=== PATIENT | female | born 1950 | race Caucasian/White ===

== ENCOUNTER → 2016-08-03 | Outpatient (CLI) | payer MEDICARE, OTHER ==
[~2016-08-03] MED LIST: REGADENOSON 0.4 MG/5 ML SYRINGE IV ONE
--- NOTE | 2016-08-03 11:49 | NM ---
EXAMINATION TYPE: NM stress lexiscan cardiolite DATE OF EXAM: 08/03/2016 11:01 AM COMPARISON: NONE HISTORY: Preop TECHNIQUE: After the intravenous administration of 10.37 mCi Tc 99m Sestamibi - Cardiolite resting S PECT images acquired 47 minutes post injection. The patient received 0.4mg Lexiscan, 26.9 mCi Tc 99m Sestamibi - Stress images obtained [address] injection FINDINGS: Review of stress and rest SPECT images demonstrates no distinct perfusion abnormality. Gated analysi s shows normal wall motion with an estimated left ventricular ejection fraction of 78 %. Some mild decreased uptake along the anterior wall of the left ventricle is greater on rest images th an on stress images. IMPRESSION: No scintigraphic evidence for reversible ischemia. Additional findings above. Decreased uptake along the anterolateral wall is mild, greater on rest images than stress images. Elevated ejection fraction , consider echocardiographic correlation.
--- NOTE | 2016-08-03 13:25 | EST ---
DATE OF SERVICE: 08/03/16 AGE: 66Y SEX: F HT: 5'5" WT: 215 lbs. Protocol Timothy: Other: X Stage: Dur. of Exercise: *Heart Rate Blood Pressure *Rest: 93 Rest: 123/77 * *Max. Achieved: 102 Maximum BP: 123/77 85% PMHR: 129 100% PMHR: 152 *METS: INDICATIONS: MEDICATIONS: Baseline EKG revealed a sinus rhythm with nonspecific ST-T changes. There was some low voltage pattern noted with some baseline artifact. With Lexiscan administration, patient did not have any significant symptoms. Heart rate changed from about 84 beats per minute to 102 beats per minute. There was a lot of baseline artifact, but overall with Lexiscan administration, there were no EKG changes that were new and this is considered an inconclusive stress test. Heart rate changed from about 74 to 102 beats per minute and blood pressure changed from 115/84 to 108/56. IMPRESSION: 1. By EKG criteria, this is an inconclusive Lexiscan stress test because of minor resting EKG changes. 2. The nuclear scan results, which are more pertinent, will be reported by the radiologist.
== END | disposition home or self-care (01) ==
LOC: RADNMMAIN 08:06
PROVIDERS: ATTEND Internal Medicine
DX: Z01.810 Encounter for preprocedural cardiovascular examination (principal); R94.39 Abnormal result of other cardiovascular function study
CPT/HCPCS: 93017; 78452; A9500; J2785

== ENCOUNTER 2017-04-21 09:48 | Inpatient (IN) | payer MEDICARE, OTHER ==
[2017-04-21] MEDS ORDERED: ACETAMINOPHEN TAB 500 MG TAB PO STA (10:14)
[2017-04-21] MEDS ORDERED: VANCOMYCIN IV PER PHARMACY 1 EACH MISC MISCELLANE PRN (10:14)
[2017-04-21] MEDS ORDERED: LEVOFLOXACIN 750MG-D5W PMX 750 MG in DEXTROSE/WATER 1 150ML.BAG IVPB STA (10:14)
[2017-04-21] MEDS ORDERED: VANCOMYCIN 1,500 MG in SODIUM CHLORIDE 0.9% 250 ML IVPB STA (10:20)
[2017-04-21] MEDS: SODIUM CHLORIDE 0.9% 500 ML IV SCH ×2 (10:22→11:00)
[2017-04-21] MEDS ORDERED: SODIUM CHLORIDE 0.9% 1,000 ML IV STA ×2 (10:24)
--- NOTE | 2017-04-21 10:24 | ED ---
General Adult HPI - General Chief complaint: Fever Stated complaint: weakness Time Seen by Provider: 04/21/17 10:06 Source: patient, RN notes reviewed Mode of arrival: EMS Limitations: no limitations - History of Present Illness Initial comments: Patient is a pleasant 66-year-old female presenting to the emergency department complaining of not feeling well. Symptoms have progressed over the past couple of days. Patient did have some vomiting a couple of days ago. Patient has mild upper abdominal discomfort. Patient does have history of previous right leg flap surgery done around 8 weeks ago. Patient does have a draining tube removed a few days ago and still has some drainage. No cough. Patient has had decreased appetite and decreased oral intake. No constipation or diarrhea. - Related Data Home Medications Medication Instructions Recorded Confirmed HYDROcodone/APAP 10-325MG [[place] 1 tab PO Q6H PRN 12/04/15 04/21/17 10-325] Leflunomide [Arava] 20 mg PO DAILY 12/04/15 04/21/17 Levothyroxine Sodium [Synthroid] 200 mcg PO DAILY 12/04/15 04/21/17 Multivitamin/Iron/Folic Acid 1 tab PO DAILY 12/04/15 04/21/17 [Centrum Complete Multivit Tab] Pregabalin [Lyrica] 100 mg PO BID 12/04/15 04/21/17 Rivaroxaban [Xarelto] 15 mg PO DAILY 12/04/15 04/21/17 fentaNYL 25MCG/HR PATCH [Duragesic 50 mcg TRANSDERM Q72H 01/06/16 04/21/17 25Mcg/Hr Patch] Ferrous Sulfate [Feosol] 325 mg PO DAILY 02/04/16 04/21/17 Ascorbic Acid [Vitamin C] 500 mg PO DAILY 05/12/16 04/21/17 Ergocalciferol [Vitamin D2] 50,000 unit PO Q7D 04/21/17 04/21/17 Allergies Allergy/AdvReac Type Severity Reaction Status Date / Time Penicillins Allergy Rash/Hives Verified 04/21/17 11:00 Review of Systems ROS Statement: Those systems with pertinent positive or pertinent negative responses have been documented in the HPI. ROS Other: All systems not noted in ROS Statement are negative. Constitutional: Reports: fever Eyes: Denies: eye pain ENT: Denies: ear pain Respiratory: Denies: cough Cardiovascular: Denies: chest pain Endocrine: Reports: fatigue Gastrointestinal: Reports: abdominal pain, nausea, vomiting, constipation. Denies: diarrhea Genitourinary: Denies: dysuria Musculoskeletal: Denies: back pain Skin: Denies: rash Past Medical History Past Medical History: Deep Vein Thrombosis (DVT), Fibromyalgia, Rheumatoid Arthritis (RA), Skin Disorder, Thyroid Disorder Additional Past Medical History / Comment(s): OAB History of Any Multi-Drug Resistant Organisms: MRSA Date of last positivie culture/infection: 07/02/16 MDRO Source:: HAND Past Surgical History: Appendectomy, Cholecystectomy, Tonsillectomy Additional Past Surgical History / Comment(s): left foot wound debridement. nodule removed from thyroid. sinus surgery. surgical excision and debridment of sacrum with wound VAC placement on 08/05/[address] Perrin. debridement wound care to right lower extremity wound on 08/21/15. Past Anesthesia/Blood Transfusion Reactions: No Reported Reaction Past Psychological History: No Psychological Hx Reported Smoking Status: Never smoker Past Alcohol Use History: None Reported Past Drug Use History: None Reported - Past Family History Mother Family Medical History: AFIB, Cancer Additional Family Medical History / Comment(s): still living at age 91. skin cancer Father Family Medical History: Liver Disease, Rheumatoid Arthritis (RA) Additional Family Medical History / Comment(s): leukemia. at age 72 of liver problem. General Exam Limitations: no limitations General appearance: alert, in no apparent distress Head exam: Present: atraumatic Eye exam: Present: normal appearance, PERRL ENT exam: Present: mucous membranes dry Neck exam: Present: normal inspection Respiratory exam: Present: normal lung sounds bilaterally Cardiovascular Exam: Present: tachycardia GI/Abdominal exam: Present: soft, tenderness (Mild epigastric tenderness). Absent: distended, guarding, rebound, rigid Extremities exam: Present: other (Right posterior leg flap clean and dry and intact and healing well except for the lower portion with less than 1 cm open area with mild purulent discharge.) Neurological exam: Present: alert Psychiatric exam: Present: normal affect, normal mood Skin exam: Present: other (Healed incision except for lower opening with drainage.) Course Vital Signs 04/21/17 04/21/17 04/21/17 09:53 10:30 10:45 Temperature 101.2 F H 100.6 F H Pulse Rate 114 H 112 H 116 H Respiratory 16 16 16 Rate Blood Pressure 66/43 76/46 65/41 O2 Sat by Pulse 92 L 92 L 92 L Oximetry 04/21/17 04/21/17 04/21/17 11:00 11:30 12:00 Temperature 99.8 F H 97.9 F Pulse Rate 112 H 116 H 84 Respiratory 16 16 20 Rate Blood Pressure 81/49 72/45 80/46 O2 Sat by Pulse 92 L 92 L 94 L Oximetry 04/21/17 04/21/17 04/21/17 12:30 12:45 13:00 Temperature 97.9 F Pulse Rate 79 66 70 Respiratory 16 16 16 Rate Blood Pressure 71/41 76/47 80/49 O2 Sat by Pulse 95 95 97 Oximetry - Reevaluation(s) Reevaluation #1: 04/21/17 10:23 Presumptive infection lower part of wound with abnormal vital signs and fever. Patient is meeting severe sepsis criteria at 10:23 AM. IV fluid bolus has been ordered. Blood cultures and lactic acid and antibiotics have been ordered. 04/21/17 13:44 Case was discussed with Dr. Wilkins, who will admit for Dr. Randall. Case was also discussed with Dr. Metz, who will consult. Central line has been placed. Levophed has been started. EKG Findings - EKG Comments: EKG Findings:: Sinus tachycardia 118. WA 158. QRS 82. QT 298. QTC 417. Left axis. Normal QRS. No acute ST change. Procedures - Central Line Placement Right SC Consent Obtained: verbal consent, emergent situation Time Out Performed: Yes Patient Placed on Monitor/Pulse Ox: Yes MD Prep: mask, gown, gloves Central Line Prep: Chlorhexidine scrub Local Anesthesia Used: Lidocaine 1% Amount of Anesthesia Used (mls): 2 Central Line Lumen Inserted: triple Central Line Position: good blood return, all ports aspirated, flushed, capped, sutured in place with 3-0 nylon Dressing Applied: Tegaderm Post Procedure X-Ray: tip of catheter in good position Patient Tolerated Procedure: well Complications: none - Sepsis Sepsis Focused Exam #1 Time Sepsis Criteria Met: 10:23 Sepsis Focused Exam Date: 04/21/17 Sepsis Focused Exam Time: 13:36 Sepsis Focused Exam Complete: Yes Vital Signs & RN Notes Reviewed: Yes Capillary Refill: < 2 Seconds: Fingers, Toes Peripheral Pulses: Normal: Radial (R), Radial (L), Dorsalis Pedis (R), Dorsalis Pedis (L) Skin Color: Pallor Respiratory Exam: normal lung sounds Cardiovascular Exam: tachycardia Medical Decision Making - Lab Data Result diagrams: 04/21/17 10:11 04/21/17 10:11 Lab Results 04/21/17 04/21/17 04/21/17 Range/Units 10:11 10:11 10:11 WBC 28.3 H* (3.8-10.6) k/uL RBC 4.41 (3.80-5.40) m/uL Hgb 12.2 (11.4-16.0) gm/dL Hct 39.4 (34.0-46.0) % MCV 89.5 (80.0-100.0) fL MCH 27.7 (25.0-35.0) pg MCHC 31.0 (31.0-37.0) g/dL RDW 15.8 H (11.5-15.5) % Plt Count 278 (150-450) k/uL Neutrophils % 93 % Lymphocytes % 3 % Monocytes % 3 % Eosinophils % 0 % Basophils % 1 % Neutrophils # 26.3 H (1.3-7.7) k/uL Lymphocytes # 0.8 L (1.0-4.8) k/uL Monocytes # 0.9 (0-1.0) k/uL Eosinophils # 0.1 (0-0.7) k/uL Basophils # 0.2 (0-0.2) k/uL Manual Slide Review Performed Toxic Granulation Present Hypochromasia Slight Poikilocytosis (manual Present PT (9.0-12.0) sec INR (<1.2) APTT (22.0-30.0) sec Sodium 139 (137-145) mmol/L Potassium 4.2 (3.5-5.1) mmol/L Chloride 105 (98-107) mmol/L Carbon Dioxide 23 (22-30) mmol/L Anion Gap 11 mmol/L BUN 34 H (7-17) mg/dL Creatinine 1.90 H (0.52-1.04) mg/dL Est GFR (MDRD) Af Amer 32 (>60 ml/min/1.73 sqM) Est GFR (MDRD) Non-Af 26 (>60 ml/min/1.73 sqM) Glucose 87 (74-99) mg/dL Plasma Lactic Acid Darryl 2.9 H* (0.7-2.0) mmol/L Calcium 9.2 (8.4-10.2) mg/dL Total Bilirubin 0.8 (0.2-1.3) mg/dL AST 62 H (14-36) U/L ALT 45 (9-52) U/L Alkaline Phosphatase 138 H (38-126) U/L Total Protein 5.7 L (6.3-8.2) g/dL Albumin 2.7 L (3.5-5.0) g/dL Urine Color Urine Appearance (Clear) Urine pH (5.0-8.0) Ur Specific [place] (1.001-1.035) Urine Protein (Negative) Urine Glucose (UA) (Negative) Urine Ketones (Negative) Urine Blood (Negative) Urine Nitrite (Negative) Urine Bilirubin (Negative) Urine Urobilinogen (<2.0) mg/dL Ur Leukocyte Esterase (Negative) Urine RBC (0-5) /hpf Urine WBC (0-5) /hpf Urine WBC Clumps (None) /hpf Urine Bacteria (None) /hpf 04/21/17 04/21/17 Range/Units 10:11 11:23 WBC (3.8-10.6) k/uL RBC (3.80-5.40) m/uL Hgb (11.4-16.0) gm/dL Hct (34.0-46.0) % MCV (80.0-100.0) fL MCH (25.0-35.0) pg MCHC (31.0-37.0) g/dL RDW (11.5-15.5) % Plt Count (150-450) k/uL Neutrophils % % Lymphocytes % % Monocytes % % Eosinophils % % Basophils % % Neutrophils # (1.3-7.7) k/uL Lymphocytes # (1.0-4.8) k/uL Monocytes # (0-1.0) k/uL Eosinophils # (0-0.7) k/uL Basophils # (0-0.2) k/uL Manual Slide Review Toxic Granulation Hypochromasia Poikilocytosis (manual PT 13.5 H (9.0-12.0) sec INR 1.4 H (<1.2) APTT 30.6 H (22.0-30.0) sec Sodium (137-145) mmol/L Potassium (3.5-5.1) mmol/L Chloride (98-107) mmol/L Carbon Dioxide (22-30) mmol/L Anion Gap mmol/L BUN (7-17) mg/dL Creatinine (0.52-1.04) mg/dL Est GFR (MDRD) Af Amer (>60 ml/min/1.73 sqM) Est GFR (MDRD) Non-Af (>60 ml/min/1.73 sqM) Glucose (74-99) mg/dL Plasma Lactic Acid Darryl (0.7-2.0) mmol/L Calcium (8.4-10.2) mg/dL Total Bilirubin (0.2-1.3) mg/dL AST (14-36) U/L ALT (9-52) U/L Alkaline Phosphatase (38-126) U/L Total Protein (6.3-8.2) g/dL Albumin (3.5-5.0) g/dL Urine Color Light Red Urine Appearance Turbid H (Clear) Urine pH 7.5 (5.0-8.0) Ur Specific [place] 1.020 (1.001-1.035) Urine Protein 2+ H (Negative) Urine Glucose (UA) Negative (Negative) Urine Ketones Negative (Negative) Urine Blood Moderate H (Negative) Urine Nitrite Negative (Negative) Urine Bilirubin Negative (Negative) Urine Urobilinogen <2.0 (<2.0) mg/dL Ur Leukocyte Esterase Large H (Negative) Urine RBC >182 H (0-5) /hpf Urine WBC >182 H (0-5) /hpf Urine WBC Clumps Many H (None) /hpf Urine Bacteria Moderate H (None) /hpf - Radiology Data Radiology results: image reviewed (Chest x-ray shows some interstitial prominence and cardiomegaly.Basilar atelectasis or infiltrate.) Critical Care Time Critical Care Time: Yes Total Critical Care Time: 44 Disposition Clinical Impression: Urinary tract infection, Septic shock Disposition: ADMITTED IP TO THIS [facility] Condition: Critical Referrals: Cierra Moyer MD [Primary Care Provider] - 1-2 days Decision Time: 13:45
[2017-04-21 11:01] LABS: Basophils # (A) 0.2 k/uL (0-0.2); Basophils % (A) 1 %; CH 28.4; CHCM 31.9; Calcium 9.2 mg/dL (8.4-10.2); Eosinophils # (A) 0.1 k/uL (0-0.7); Eosinophils % (A) 0 %; HCT 39.4 % (34.0-46.0); HDW 2.61; HGB 12.2 gm/dL (11.4-16.0); Hypochromasia Slight; Immature Gran Flag Slight; Luc # (Auto) 0.15; Luc % (Auto) 1; Lymphocytes # (A) 0.8 k/uL (1.0-4.8); Lymphocytes % (A) 3 %; MCH 27.7 pg (25.0-35.0); MCV 89.5 fL (80.0-100.0); Mean Platelet Volume 8.7; Monocytes # (A) 0.9 k/uL (0-1.0); Monocytes % (A) 3 %; Neutrophils # (A) 26.3 k/uL (1.3-7.7); Neutrophils % (A) 93 %; Potassium 4.2 mmol/L (3.5-5.1); RBC 4.41 m/uL (3.80-5.40); RDW 15.8 % (11.5-15.5); Total Bilirubin 0.8 mg/dL (0.2-1.3); Total Protein 5.7 g/dL (6.3-8.2); WBC (Perox) 30.69
[2017-04-21 11:04] LABS: WBC 28.3 k/uL (3.8-10.6)
[2017-04-21 11:10] LABS: INR 1.4 (<1.2); Partial Thromboplastin Time 30.6 sec (22.0-30.0); Prothrombin Time 13.5 sec (9.0-12.0)
[2017-04-21 11:42] LABS: Manual Review Performed; Toxic Granulation Present
[2017-04-21 11:56] LABS: Appearance,Urine Turbid (Clear); Bacteria,Urine Moderate /hpf; Bilirubin,Urine Negative (Negative); Glucose,Urine (UA) Negative (Negative); Ketones,Urine Negative (Negative); Leukocyte Esterase,Urine Large (Negative); Nitrite,Urine Negative (Negative); PH, Urine 7.5 (5.0-8.0); Particle Count 29032; Protein,Urine 2+ (Negative); RBC,Urine >182 /hpf (0-5); UA Billing (MACRO vs. MICRO) MICRO; Urobilinogen,Urine <2.0 mg/dL (<2.0); WBC,Urine >182 /hpf (0-5)
[2017-04-21] MEDS ORDERED: RX INFO: IV CONTRAST WAS GIVEN 1 EACH MISC MISCELLANE PRN (11:57)
--- NOTE | 2017-04-21 13:04 | XR ---
EXAMINATION TYPE: XR chest 1V portable DATE OF EXAM: 04/21/2017 COMPARISON: Chest x-ray November 23, 2015 HISTORY: Hypotension and fever. TECHNIQUE: Single AP portable frontal upright view of the chest is obtained. FINDINGS: There is new right subclavian central venous catheter with tip at caval atrial junction. T here is diminished inspiration on current study. There is chronic parenchymal change with new elevate d left hemidiaphragm and associated left basilar atelectasis and/or infiltrate. Cardiac silhouette si ze is stable and mildly enlarged with atherosclerotic thoracic aorta. Right lung is clear. Mild centr al interstitial prominence remains present. Osseous structures are demineralized. IMPRESSION: Cannot exclude CHF exacerbation as there is mild cardiomegaly with suspected mild centra l vascular congestion though findings may be exaggerated by poor inspiration. Clinical correlation ad vised. There is background chronic parenchymal change with new left basilar atelectasis and/or infilt rate.
[2017-04-21] MEDS ORDERED: NOREPINEPHRIN 4 MG-0.9% NS PMX 4 MG/250 ML ML IV ONE (13:11)
[2017-04-21] MEDS ORDERED: DEXAMETHASONE SOD PHOSPHATE 10 MG/ML 1 ML VIAL IV STA (13:55)
[2017-04-21] MEDS ORDERED: NALOXONE 0.4 MG/ML 1 ML VIAL IV PRN (13:56)
[2017-04-21] MEDS ORDERED: SODIUM CHLORIDE 0.9% 1,000 ML IV SCH (14:00)
--- NOTE | 2017-04-21 14:38 | CT ---
EXAMINATION TYPE: CT abdomen pelvis wo con DATE OF EXAM: 04/21/2017 COMPARISON: NONE HISTORY: Lt side pain with fever CT DLP: 1254 mGycm Examination of the solid and hollow viscera is limited given the lack of contrast. FINDINGS: LUNG BASES: There is evidence of pericardial thickening with pericardial calcification. Small bilater al pleural effusions identified. Patchy basilar densities may reflect atelectasis and/or infiltrate. Mild bronchiectasis. LIVER/GB: The gallbladder is absent. No space-occupying hepatic lesion. PANCREAS: No pancreatic mass identified. No inflammatory process seen. SPLEEN: No evidence for splenomegaly. No intrasplenic lesions seen. ADRENALS: No adrenal nodules identified. No evidence for thickening. KIDNEYS: There is evidence of horseshoe kidney. There is perinephric stranding noted about the left s ided horseshoe component. There is mild left-sided hydroureteronephrosis to the mid pelvic level or a calcification is noted measuring 4.7 mm. There appears to be renal edema and underlying infection is not excluded. 4 mm nonobstructing calculus right horseshoe component lower pole. Charles balloon kraig ter seen within the urinary bladder. BOWEL: Left hemicolonic diverticulosis without diverticulitis. Nonvisualization of the appendix. No e vidence of bowel obstruction. No inflammatory process. Lymph nodes: No evidence for adenopathy greater than 1 cm. Abdominal aorta: Atheromatous changes seen. No evidence for aneurysm. Genital organs: No significant abnormality. Other: No significant abnormality. IMPRESSION: 1. Horseshoe kidney with left-sided renal edema and perinephric stranding. Mild hydronephrosis exten ding to the mid pelvis where there is a 4.7 mm obstructing calculus. Underlying infection is not excl uded. 2. Diverticulosis without diverticulitis. 3. Basilar pleural effusions with patchy bibasilar densities may reflect underlying infiltrate and/or atelectasis.
[2017-04-21 14:45] LABS: Glucose,Whole Blood 121 mg/dL (75-99)
[2017-04-21] MEDS ORDERED: NOREPINEPHRIN 16 MG-0.9%NS PMX 16 MG/250 ML ML IV SCH (15:15)
--- NOTE | 2017-04-21 16:14 | P.CNPUL ---
History of Present Illness Consult date: 04/21/17 Requesting physician: Janes Wilkins Reason for consult: other (Acute septic shock to urinary tract infection) Chief complaint: Fever and weakness History of present illness: This is a 66-year-old female with history of multiple medical problems including right leg flap surgery done about 8 weeks ago, and she continues to have some purulent drainage from the site of the surgery in the back of her thigh. Patient is also known to have history of rheumatoid arthritis, hypothyroidism, deep vein thrombosis, maintained on Xarelto, history of fibromyalgia, and history of decubitus ulcers. Patient had previous MRSA infection. Patient was brought into the ER mostly with multiple complaints including not feeling well, weakness, low-grade fever, and this has been going on for the last couple of days. Patient was also complaining of left flank pain and left lower quadrant pain, also noted to have thick discolored urine, bloody at times, and she does have a chronic indwelling Charles catheter. During her evaluation in the ER, patient was noted to be hypotensive she received 2 L of crystalloids, and she remained hypotensive hence at the right subclavian central line was placed, and patient was started on norepinephrine. She is presently on 20 mics of norepinephrine. Blood pressure seems to be stabilizing. She is also receiving her third liter of 0.9 normal saline. Improved significantly since admission but remains critically ill. Patient was also noted to have significant leukocytosis with WBC count of 28.3 elevated lactic acid of 2.9, repeat was 1.6 after fluid boluses. She was also noted to have significant pyuria and bacteriuria noted in her urinalysis. CT of abdomen and pelvis showed left sided diverticulosis, mild the left sided hydronephrosis with mid pelvic level calcifications, renal edema was noted, underlying infection is not excluded. There was also a 4 mm nonobstructing calculus, right horseshoe component lower pole. The patient herself is not the greatest historian, she had multiple vague complaints, but she had no clue how sick she was upon presentation. Patient was started on antibiotics in the form of Levaquin and vancomycin, (patient is ALLERGIC to penicillin). Patient was given fluid boluses she is presently on her third liter of crystalloid and she was placed on norepinephrine presently being titrated to a mean arterial pressure of 65 or higher. Chest x-ray is beginning to show mild central vascular congestion, and chronic parenchymal changes with basilar atelectasis, doubt infiltrates. Patient denied any headaches no blurred vision no dizziness. Denied any shortness of breath cough or wheezing. No nausea no vomiting, she did have abdominal pain mostly in the left lower quadrant, one episode of diarrhea yesterday, but no melena no hematemesis. Patient had a chronic indwelling Charles catheter. Denies any specific urinary symptoms. No dysuria, no frequency, no urgency. Again she does have left flank pain. Patient is known to have histories of severe rheumatoid arthritis used to see Dr. Hrenandez and she was treated in the past with Arava. Review of Systems ROS Other: All systems not noted in ROS Statement are negative. Constitutional: Low-grade fever, no chills, no weight loss. No changes in appetite. Eyes: No blurred vision, no diplopia. ENT: No earache, no sore throat, no nasal congestion. Respiratory: No cough no wheezing no shortness of breath. No chest pain. Cardiovascular: No anginal symptoms, no palpitations. Endocrine: Generalized fatigue Gastrointestinal: No nausea, no vomiting, no melena, no hematemesis, did have 1 episode of diarrhea yesterday. And left flank pain. Genitourinary: As noted in the history of the present illness. Musculoskeletal: Denies: back pain Skin: Patient complains of purulent drainage noted from her recent flap surgery site. And she had previous history of decubitus ulcers. Presently healed Past Medical History Past Medical History: Deep Vein Thrombosis (DVT), Fibromyalgia, Rheumatoid Arthritis (RA), Skin Disorder, Thyroid Disorder Additional Past Medical History / Comment(s): "LEAKY BLADDER" IDC- CHANGED , "POOR CIRCULATION", HX NON HEALING WOUNDRT ANKLE/BUTTOCK. PAST RT HIP FX- NO SX DONE. History of Any Multi-Drug Resistant Organisms: MRSA Date of last positivie culture/infection: 07/02/16 MDRO Source:: HAND Past Surgical History: Appendectomy, Cholecystectomy, Tonsillectomy Additional Past Surgical History / Comment(s): left foot wound debridement. nodule removed from thyroid. sinus surgery. surgical excision and debridment of sacrum with wound VAC placement on 08/05/15 and sx done(flap) that developed pin hole leak -had 2nd sx to repair". debridement wound care to right lower extremity wound on 08/21/15. Past Anesthesia/Blood Transfusion Reactions: No Reported Reaction Smoking Status: Never smoker - Past Family History Mother Family Medical History: AFIB, Cancer Additional Family Medical History / Comment(s): still living at age 91. skin cancer Father Family Medical History: Liver Disease, Rheumatoid Arthritis (RA) Additional Family Medical History / Comment(s): leukemia. at age 72 of liver problem. Medications and Allergies Home Medications Medication Instructions Recorded Confirmed Type HYDROcodone/APAP 10-325MG [[place] 1 tab PO Q6H PRN 12/04/15 04/21/17 History 10-325] Leflunomide [Arava] 20 mg PO DAILY 12/04/15 04/21/17 History Levothyroxine Sodium [Synthroid] 200 mcg PO DAILY 12/04/15 04/21/17 History Multivitamin/Iron/Folic Acid 1 tab PO DAILY 12/04/15 04/21/17 History [Centrum Complete Multivit Tab] Pregabalin [Lyrica] 100 mg PO BID 12/04/15 04/21/17 History Rivaroxaban [Xarelto] 15 mg PO DAILY 12/04/15 04/21/17 History fentaNYL 25MCG/HR PATCH [Duragesic 50 mcg TRANSDERM Q72H 01/06/16 04/21/17 History 25Mcg/Hr Patch] Ferrous Sulfate [Feosol] 325 mg PO DAILY 02/04/16 04/21/17 History Ascorbic Acid [Vitamin C] 500 mg PO DAILY 05/12/16 04/21/17 History Ergocalciferol [Vitamin D2] 50,000 unit PO Q7D 04/21/17 04/21/17 History Allergies Allergy/AdvReac Type Severity Reaction Status Date / Time Penicillins Allergy Rash/Hives Verified 04/21/17 11:00 Physical Exam Vitals: Vital Signs Temp Pulse Resp BP Pulse Ox 04/21/17 15:00 98 F 78 16 99/49 98 04/21/17 14:50 76 16 68/34 97 04/21/17 14:47 97.9 F 74 16 90/47 96 04/21/17 14:43 75 16 97 04/21/17 14:00 76 18 86/46 96 04/21/17 13:30 76 16 84/48 96 04/21/17 13:00 70 16 80/49 97 04/21/17 12:45 66 16 76/47 95 04/21/17 12:30 97.9 F 79 16 71/41 95 04/21/17 12:00 97.9 F 84 20 80/46 94 L 04/21/17 11:30 99.8 F H 116 H 16 72/45 92 L 04/21/17 11:00 112 H 16 81/49 92 L 04/21/17 10:45 100.6 F H 116 H 16 65/41 92 L 04/21/17 10:30 112 H 16 76/46 92 L 04/21/17 09:53 101.2 F H 114 H 16 66/43 92 L Intake and Output 04/21/17 04/21/17 04/21/17 06:59 14:59 22:59 Intake Total 46.875 500.312 Output Total 250 30 Balance -203.125 470.312 Intake: IV 500 Sodium Chloride 0.9% 1, 500 000 ml @ 100 mls/hr IV . Q10H [facility] Rx#:[id number] Intake, IV Titration 46.875 0.312 Amount Norepinephrin 16 mg-0.9% 0.312 Ns Pmx 16 mg In 250 ml @ Titrate IV .Q0M [facility] Rx#: [id number] Norepinephrin 4 mg-0.9% 46.875 Ns Pmx 4 mg In 250 ml @ Titrate IV .Q0M [facility] Rx#: [id number] Output: Urine 250 30 Uretheral (Charles) 250 Other: Weight 95.254 kg Patient Weight 04/22/17 06:59 Weight 95.254 kg General appearance: Pleasant 66-year-old female, in no distress, presently on nasal cannula. Head exam: Normocephalic atraumatic Eye exam: PERRLA, EOMI. No icterus. ENT exam: Clear throat, dry mucous membranes, nasal mucosa is intact. Neck exam: No stridor, no cervical lymphadenopathy, no thyromegaly. Respiratory exam: Diminished breath sounds and crackles at the bases noted bilaterally. Cardiovascular Exam: Normal S1 and S2, no S3 gallop. No murmur. GI/Abdominal exam: Abdomen is soft, tenderness (Mild epigastric tenderness). No rebound, no guarding. Extremities exam: (Right posterior leg flap clean and dry and intact and healing well except for the lower portion with less than 1 cm open area with mild purulent discharge.) Neurological exam: No focal neurologic deficit Psychiatric exam: Present: normal affect, normal mood Skin exam: Present: other (Healed incision except for lower opening with drainage.) Results - Laboratory Findings CBC and BMP: 04/21/17 10:11 04/21/17 10:11 PT/INR, D-dimer PT 13.5 sec (9.0-12.0) H 04/21/17 10:11 INR 1.4 (<1.2) H 04/21/17 10:11 Abnormal lab findings: Abnormal Labs 04/21/17 04/21/17 04/21/17 10:11 10:11 10:11 WBC 28.3 H* RDW 15.8 H Neutrophils # 26.3 H Lymphocytes # 0.8 L PT INR APTT BUN 34 H Creatinine 1.90 H POC Glucose (mg/dL) Plasma Lactic Acid Darryl 2.9 H* AST 62 H Alkaline Phosphatase 138 H Total Protein 5.7 L Albumin 2.7 L Urine Appearance Urine Protein Urine Blood Ur Leukocyte Esterase Urine RBC Urine WBC Urine WBC Clumps Urine Bacteria 04/21/17 04/21/17 04/21/17 10:11 11:23 14:43 WBC RDW Neutrophils # Lymphocytes # PT 13.5 H INR 1.4 H APTT 30.6 H BUN Creatinine POC Glucose (mg/dL) 121 H Plasma Lactic Acid Darryl AST Alkaline Phosphatase Total Protein Albumin Urine Appearance Turbid H Urine Protein 2+ H Urine Blood Moderate H Ur Leukocyte Esterase Large H Urine RBC >182 H Urine WBC >182 H Urine WBC Clumps Many H Urine Bacteria Moderate H - Diagnostic Findings Chest x-ray: image reviewed (As noted in the history of present illness) Assessment and Plan Plan: Impression: 1 acute septic shock secondary to urinary tract infection, possible pyelonephritis. 2 suspect mild fluid overload, no clear-cut evidence of pneumonia a son the chest x-ray, there is some basilar atelectasis. 3 acute right lower extremity cellulitis related to recent surgical flap and ongoing purulent drainage from the surgical site could also be another source of infection and sepsis. 4 history of deep vein thrombosis 5 history of rheumatoid arthritis 6 history of hypothyroidism 7 history of previous MRSA infection. 8 history of chronic indwelling Charles catheter. 9 history of fibromyalgia 10 acute kidney injury related to sepsis. Recommendation: Patient will continue with the third liter of IV fluid bolus, agree with antibiotics in the form of Levaquin and vancomycin for now, the antibiotics will be changed accordingly depending on the final culture. Continue GI and DVT prophylaxis patient is on Xarelto 4 history of chronic deep vein thrombosis. Patient is critically ill, she will be monitored closely in the ICU, will follow the sepsis protocol, and we'll follow closely. Prognosis is definitely guarded at this point. Urology consultation was initiated to address her hydronephrosis. Time with Patient: Greater than 30
[2017-04-21] MEDS: SODIUM CHLORIDE 0.9% 1,000 ML IV SCH (17:07)
--- NOTE | 2017-04-21 17:39 | P.HPIM ---
History of Present Illness H&P Date: 04/21/17 Chief Complaint: abdominal pain and hypotension, septic shock 66 years old female patient of Dr. Moyer with past medical history of right leg flap surgery done about 8 weeks ago, history of rheumatoid arthritis, hypothyroidism, DVT 1 year ago on 02, history of fibromyalgia, history of decubitus ulcer, previous MRSA infection presents today with worsening abdominal pain for the past 4 days that started on the left side and moved to her right low quadrant, associated with chills and feeling of warmth, generalized weakness. Patient denies any history of chest pain, shortness of breath, hematemesis, melena or vomiting. Patient was just discharged from [facility] one week ago after undergoing treatment for wound infection around the right leg flap surgery. Patient stated she was on wound VAC for epidural time before switching to silver sulfadiazine by the wound care nurse. Drain was removed one week ago. In the ED patient received 2 L of fluid but remained hypotensive and hence admitting to the ICU. Patient was started on norepinephrine. Patient lactic acid on admission was 2.9 which improved to 1.6 after fluid resuscitation, WBC 28.3 with urinalysis suggestive of infection patient was covered with vancomycin and Levaquin. Blood cultures and urine cultures were sent. Chest x- ray done in the ED suggested some mild intravascular congestion with though CT abdomen and pelvis showed left-sided diverticulosis, with mild left-sided hydronephrosis and pelvic calcification, a 4 mm nonobstructing calculus was also seen in the lower pole. Review of Systems Constitutional: Reports anorexia, Reports chills, Reports fever, Reports lethargy, Reports malaise, Reports night sweats, Reports poor appetite, Reports weakness Eyes: denies blurred vision, denies diplopia, denies dry eye, denies itching, denies photophobia Ears: deny: decreased hearing Ears, nose, mouth and throat: Denies dysphagia, Denies headache, Denies hoarseness, Denies nasal discharge, Denies nose pain, Denies odynophagia, Denies swelling in mouth, Denies swelling in throat Past Medical History Past Medical History: Deep Vein Thrombosis (DVT), Fibromyalgia, Rheumatoid Arthritis (RA), Skin Disorder, Thyroid Disorder Additional Past Medical History / Comment(s): "LEAKY BLADDER" IDC- CHANGED , "POOR CIRCULATION", HX NON HEALING WOUNDRT ANKLE/BUTTOCK. PAST RT HIP FX- NO SX DONE. History of Any Multi-Drug Resistant Organisms: MRSA Date of last positivie culture/infection: 07/02/16 MDRO Source:: HAND Past Surgical History: Appendectomy, Cholecystectomy, Tonsillectomy Additional Past Surgical History / Comment(s): left foot wound debridement. nodule removed from thyroid. sinus surgery. surgical excision and debridment of sacrum with wound VAC placement on 08/05/15 and sx done(flap) that developed pin hole leak -had 2nd sx to repair". debridement wound care to right lower extremity wound on 08/21/15. Past Anesthesia/Blood Transfusion Reactions: No Reported Reaction Smoking Status: Never smoker - Past Family History Mother Family Medical History: AFIB, Cancer Additional Family Medical History / Comment(s): still living at age 91. skin cancer Father Family Medical History: Liver Disease, Rheumatoid Arthritis (RA) Additional Family Medical History / Comment(s): leukemia. at age 72 of liver problem. Medications and Allergies Home Medications Medication Instructions Recorded Confirmed Type HYDROcodone/APAP 10-325MG [[place] 1 tab PO Q6H PRN 12/04/15 04/21/17 History 10-325] Leflunomide [Arava] 20 mg PO DAILY 12/04/15 04/21/17 History Levothyroxine Sodium [Synthroid] 200 mcg PO DAILY 12/04/15 04/21/17 History Multivitamin/Iron/Folic Acid 1 tab PO DAILY 12/04/15 04/21/17 History [Centrum Complete Multivit Tab] Pregabalin [Lyrica] 100 mg PO BID 12/04/15 04/21/17 History Rivaroxaban [Xarelto] 15 mg PO DAILY 12/04/15 04/21/17 History fentaNYL 25MCG/HR PATCH [Duragesic 50 mcg TRANSDERM Q72H 01/06/16 04/21/17 History 25Mcg/Hr Patch] Ferrous Sulfate [Feosol] 325 mg PO DAILY 02/04/16 04/21/17 History Ascorbic Acid [Vitamin C] 500 mg PO DAILY 05/12/16 04/21/17 History Ergocalciferol [Vitamin D2] 50,000 unit PO Q7D 04/21/17 04/21/17 History Allergies Allergy/AdvReac Type Severity Reaction Status Date / Time Penicillins Allergy Rash/Hives Verified 04/21/17 11:00 Physical Exam Vitals: Vital Signs Temp Pulse Resp BP Pulse Ox 04/21/17 17:10 70 14 149/59 97 04/21/17 17:00 71 18 149/59 98 04/21/17 16:50 68 21 116/62 98 04/21/17 16:40 69 16 92/51 97 04/21/17 16:30 74 17 92/51 97 04/21/17 16:20 77 33 H 77/43 96 04/21/17 16:10 77 21 71/44 97 04/21/17 16:00 98 F 81 17 71/44 99 04/21/17 15:50 78 14 99/45 99 04/21/17 15:40 78 17 107/51 98 04/21/17 15:30 79 17 107/51 97 04/21/17 15:20 77 17 113/55 98 04/21/17 15:10 79 110/60 98 04/21/17 15:00 98 F 78 16 99/49 98 04/21/17 14:50 76 16 68/34 97 04/21/17 14:47 97.9 F 74 16 90/47 96 04/21/17 14:43 75 16 97 04/21/17 14:00 76 18 86/46 96 04/21/17 13:30 76 16 84/48 96 04/21/17 13:00 70 16 80/49 97 04/21/17 12:45 66 16 76/47 95 04/21/17 12:30 97.9 F 79 16 71/41 95 04/21/17 12:00 97.9 F 84 20 80/46 94 L 04/21/17 11:30 99.8 F H 116 H 16 72/45 92 L 04/21/17 11:00 112 H 16 81/49 92 L 04/21/17 10:45 100.6 F H 116 H 16 65/41 92 L 04/21/17 10:30 112 H 16 76/46 92 L 04/21/17 09:53 101.2 F H 114 H 16 66/43 92 L Intake and Output 04/21/17 04/21/17 04/21/17 06:59 14:59 22:59 Intake Total 46.875 700.312 Output Total 250 400 Balance -203.125 300.312 Intake: IV 700 Sodium Chloride 0.9% 1, 700 000 ml @ 100 mls/hr IV . Q10H [facility] Rx#:[id number] Intake, IV Titration 46.875 0.312 Amount Norepinephrin 16 mg-0.9% 0.312 Ns Pmx 16 mg In 250 ml @ Titrate IV .Q0M [facility] Rx#: [id number] Norepinephrin 4 mg-0.9% 46.875 Ns Pmx 4 mg In 250 ml @ Titrate IV .Q0M ONE Rx#: [id number] Output: Urine 250 400 Uretheral (Charles) 250 250 Other: Voiding Method Indwelling Catheter Weight 95.254 kg 93.6 kg Patient Weight 04/22/17 06:59 Weight 93.6 kg - Constitutional General appearance: average body habitus, cooperative, mild distress - EENT Eyes: EOMI, PERRLA, no photophobia, no scleral icterus ENT: normal oropharynx Ears: bilateral: normal - Neck Neck: no lymphadenopathy, no normal ROM Carotids: bilateral: upstroke normal - Respiratory Respiratory: bilateral: CTA, diminished (at bases ), negative: dullness, rales, rhonchi, wheezing - Cardiovascular Rhythm: regular Heart sounds: normal: S1, S2 Abnormal Heart Sounds: no systolic murmur, no diastolic murmur ankle Peripheral Edema: bilateral: None - Gastrointestinal General gastrointestinal: normal bowel sounds, soft, tenderness Localized gastrointestinal: tender: LUQ, LLQ - Integumentary Integumentary: cellulitis (Patient has skin tear at the coccyx, and a draining 1 cm size lesion at the dorsal surfaces of the right eye at the site of patient' s previous flap surgery) - Neurologic Neurologic: CNII-XII intact, focal deficits (no focal deficit ) - Musculoskeletal Musculoskeletal: gait normal, generalized weakness - Psychiatric Psychiatric: A&O x's 3, appropriate affect Results CBC & Chem 7: 04/21/17 10:11 04/21/17 10:11 Labs: Abnormal Lab Results - Last 24 Hours (Table) 04/21/17 04/21/17 04/21/17 Range/Units 10:11 10:11 10:11 WBC 28.3 H* (3.8-10.6) k/uL RDW 15.8 H (11.5-15.5) % Neutrophils # 26.3 H (1.3-7.7) k/uL Lymphocytes # 0.8 L (1.0-4.8) k/uL PT (9.0-12.0) sec INR (<1.2) APTT (22.0-30.0) sec BUN 34 H (7-17) mg/dL Creatinine 1.90 H (0.52-1.04) mg/dL POC Glucose (mg/dL) (75-99) mg/dL Plasma Lactic Acid Darryl 2.9 H* (0.7-2.0) mmol/L AST 62 H (14-36) U/L Alkaline Phosphatase 138 H (38-126) U/L Total Protein 5.7 L (6.3-8.2) g/dL Albumin 2.7 L (3.5-5.0) g/dL Urine Appearance (Clear) Urine Protein (Negative) Urine Blood (Negative) Ur Leukocyte Esterase (Negative) Urine RBC (0-5) /hpf Urine WBC (0-5) /hpf Urine WBC Clumps (None) /hpf Urine Bacteria (None) /hpf 04/21/17 04/21/17 04/21/17 Range/Units 10:11 11:23 14:43 WBC (3.8-10.6) k/uL RDW (11.5-15.5) % Neutrophils # (1.3-7.7) k/uL Lymphocytes # (1.0-4.8) k/uL PT 13.5 H (9.0-12.0) sec INR 1.4 H (<1.2) APTT 30.6 H (22.0-30.0) sec BUN (7-17) mg/dL Creatinine (0.52-1.04) mg/dL POC Glucose (mg/dL) 121 H (75-99) mg/dL Plasma Lactic Acid Darryl (0.7-2.0) mmol/L AST (14-36) U/L Alkaline Phosphatase (38-126) U/L Total Protein (6.3-8.2) g/dL Albumin (3.5-5.0) g/dL Urine Appearance Turbid H (Clear) Urine Protein 2+ H (Negative) Urine Blood Moderate H (Negative) Ur Leukocyte Esterase Large H (Negative) Urine RBC >182 H (0-5) /hpf Urine WBC >182 H (0-5) /hpf Urine WBC Clumps Many H (None) /hpf Urine Bacteria Moderate H (None) /hpf Microbiology - Last 24 Hours (Table) 04/21/17 11:23 Urine Culture - Preliminary Urine,Catheterized 04/21/17 10:11 Wound Culture - Preliminary Thigh - Right Assessment and Plan Plan: #1 septic shock secondary to pyelonephritis- increased WBC, tachycardia, increased lactic acid associated with perinephric stranding seen on the CT abdomen, makes it the likely source. Patient also has a wound on her right dorsal part of the thigh at the site of incision of her recent surgerical flap around 1 cm with the overlying drainage which could also be a possibility source of infection - Patient adequately fluid resuscitated with 30 mL/kg - Lactic acid improved to 1.6 after fluid resuscitation - Continue vancomycin and Levaquin -Blood culture Culture urine culture sent - Patient has history of rheumatoid arthritis may have underlying adrenal insufficiency, with stress doses of hydrocortisone 50 mg every 8 #2 history of DVT- on xarelto for 1 year, anticoagulant held, patient placed on Lovenox 30 subcu daily as prophylaxis, USG venous b/l r/o acute DVT #3 history of rheumatoid arthritis- stable #4 history of hypothyroidism continue Synthyroid #5 history of MRSA infection- wound culture sent from the site of the surgery patient covered with vancomycin #6 chronic indwelling Charles catheter- poor urine output, monitor TOMER's while in the ICU. Urology consulted for an hydronephrosis seen on the left side. #7 acute kidney injury likely secondary to sepsis- continue fluid at 100 mL/h, repeat CMP tomorrow #8 DVT prophylaxis with Lovenox #9 GI prophylaxis - Pepcid 20 mg twice a day #10. Disposition- patient will stay in ICU for monitoring and will be inpatient probably for the next 3 nights #11 CODE STATUS full code
[2017-04-21] MEDS: HYDROCORTISONE SUCCINATE 100 MG/2 ML VIAL IV SCH (17:57)
--- NOTE | 2017-04-21 20:34 | US ---
EXAMINATION TYPE: US venous doppler duplex LE DATE OF EXAM: 04/21/2017 8:16 PM COMPARISON: NONE CLINICAL HISTORY: leg swelling. Bilateral edema SIDE PERFORMED: Bilateral TECHNIQUE: The lower extremity deep venous system is examined utilizing real time linear array sonog amirah with graded compression, doppler sonography and color-flow sonography. VESSELS IMAGED: External Iliac Vein (EIV) Common Femoral Vein Deep Femoral Vein Greater Saphenous Vein * Femoral Vein Popliteal Vein Small Saphenous Vein * Proximal Calf Veins (* superficial vessels) No evidence of DVT bilateral legs Right Leg: Negative for DVT Left Leg: Negative for DVT IMPRESSION: Normal exam. No evidence of deep venous thrombosis in both legs.
[2017-04-22] MEDS: HYDROCORTISONE SUCCINATE 100 MG/2 ML VIAL IV SCH ×2 (01:50→09:12)
[2017-04-22] MEDS: SODIUM CHLORIDE 0.9% 1,000 ML IV SCH ×3 (01:51→22:00)
[2017-04-22 03:15] LABS: Basophils % (A) 0 %; CH 27.3; Eosinophils % (A) 0 %; HCT 34.5 % (34.0-46.0); HDW 2.55; HGB 10.3 gm/dL (11.4-16.0); Hypochromasia Marked; Luc # (Auto) 0.09; Luc % (Auto) 0; Lymphocytes # (A) 0.6 k/uL (1.0-4.8); Lymphocytes % (A) 2 %; MCH 28.4 pg (25.0-35.0); Mean Platelet Volume 7.8; Monocytes # (A) 0.6 k/uL (0-1.0); Monocytes % (A) 2 %; Neutrophils # (A) 31.5 k/uL (1.3-7.7); Neutrophils % (A) 96 %; RBC 3.64 m/uL (3.80-5.40); RDW 15.1 % (11.5-15.5); WBC (Perox) 32.51
[2017-04-22 03:17] LABS: WBC 32.8 k/uL (3.8-10.6)
[2017-04-22 03:19] LABS: Calcium 8.2 mg/dL (8.4-10.2); Magnesium 1.9 mg/dL (1.6-2.3); Phosphorus 3.3 mg/dL (2.5-4.5); Potassium 4.2 mmol/L (3.5-5.1)
[2017-04-22 03:22] LABS: MCV 94.6 fL (80.0-100.0)
[2017-04-22 03:49] LABS: Creatine Kinase MB 1.8 ng/mL (0.0-2.4)
[2017-04-22 03:50] LABS: Troponin I 0.279 ng/mL (0.000-0.034)
[2017-04-22] MEDS ORDERED: Magnesium Replacement Protocol 1 EACH MISC MISCELLANE PRN (04:33)
[2017-04-22] MEDS: MAGNESIUM SULFATE-D5W PMX 1 GM in DEXTROSE/WATER 1 100ML.BAG IVPB SCH ×2 (05:32→06:33)
[2017-04-22] MEDS ORDERED: VANCOMYCIN 1,500 MG in SODIUM CHLORIDE 0.9% 250 ML IVPB SCH (06:00)
[2017-04-22 07:29] LABS: Creatine Kinase MB 1.6 ng/mL (0.0-2.4)
[2017-04-22 07:34] LABS: Troponin I 0.247 ng/mL (0.000-0.034)
--- NOTE | 2017-04-22 08:00 | P.GSCN ---
History of Present Illness Consult date: 04/22/17 Reason for Consult: Urosepsis with left hydronephrosis and left ureteral calculus History of present illness: The patient was admitted through the emergency room yesterday with a fever of 101.2, tachycardia and hypotension. She had an indwelling catheter which was draining grossly infected urine. Her white blood count was 28,000. BUN was 34 and creatinine was 1.9. Lactic acid was 2.9. Computed tomography scan of the abdomen and pelvis showed evidence of a horseshoe kidney with a nonobstructive calculus in the lower pole of the right kidney measuring 3-4 mm in size there was mild left hydronephrosis with some thickening of the left perinephric fascia suggestive of underlying pyelonephritis. The radiologist thought that the patient had a calculus in the left ureter measuring 4-5 mm at the level of the mid sacrum. The patient has been treated with fluids and pressors and was started on Levaquin and vancomycin. She was hypotensive through the morning but since early yesterday afternoon she has remained normotensive. Her heart rate is in the 60s to 70s and her systolic blood pressure has been in the 90s and 100s. Overall the patient says she feels much better. The patient said that she had not been feeling well for several days prior to her admission. She denied a fever or chills. She had experienced some anorexia with some vague upper abdominal discomfort. She said she had some loose bowel movements on 04/18 but this resolved. She had some vague back pain which was not well localized. She did not note any blood or particular change in the appearance of her urine. She has a history of an indwelling catheter which has been present since July of this year. The catheter is changed monthly and was last changed several weeks ago. It was changed in the emergency room yesterday morning.This apparently was placed because the patient had a pressure sore in her sacral area that was not healing well. She is also had surgery due to a nonhealing area in the right leg which required a skin flap. There has apparently been some chronic drainage from this region. Patient does have a history of urolithiasis and said that she spontaneously passed a stone a few years ago. She believes her father may have had kidney stones also. Review of Systems - Constitutional Reports chronic pain, Reports lethargy, Reports poor appetite, Denies chills - Gastrointestinal Reports as per HPI - Genitourinary Genitourinary: Reports as per HPI Past Medical History Past Medical History: Deep Vein Thrombosis (DVT), Fibromyalgia, Rheumatoid Arthritis (RA), Skin Disorder, Thyroid Disorder Additional Past Medical History / Comment(s): "LEAKY BLADDER" IDC- CHANGED , "POOR CIRCULATION", HX NON HEALING WOUNDRT ANKLE/BUTTOCK. PAST RT HIP FX- NO SX DONE. History of Any Multi-Drug Resistant Organisms: MRSA Year Discovered:: 07/02/16 MDRO Source:: HAND Past Surgical History: Appendectomy, Cholecystectomy, Tonsillectomy Additional Past Surgical History / Comment(s): left foot wound debridement. nodule removed from thyroid. sinus surgery. surgical excision and debridment of sacrum with wound VAC placement on 08/05/15 and sx done(flap) that developed pin hole leak -had 2nd sx to repair". debridement wound care to right lower extremity wound on 08/21/15. Past Anesthesia/Blood Transfusion Reactions: No Reported Reaction Smoking Status: Never smoker - Past Family History Mother Family Medical History: AFIB, Cancer Additional Family Medical History / Comment(s): still living at age 91. skin cancer Father Family Medical History: Liver Disease, Rheumatoid Arthritis (RA) Additional Family Medical History / Comment(s): leukemia. at age 72 of liver problem. Medications and Allergies Home Medications Medication Instructions Recorded Confirmed Type HYDROcodone/APAP 10-325MG [Bejou 1 tab PO Q6H PRN 12/04/15 04/21/17 History 10-325] Leflunomide [Arava] 20 mg PO DAILY 12/04/15 04/21/17 History Levothyroxine Sodium [Synthroid] 200 mcg PO DAILY 12/04/15 04/21/17 History Multivitamin/Iron/Folic Acid 1 tab PO DAILY 12/04/15 04/21/17 History [Centrum Complete Multivit Tab] Pregabalin [Lyrica] 100 mg PO BID 12/04/15 04/21/17 History Rivaroxaban [Xarelto] 15 mg PO DAILY 12/04/15 04/21/17 History fentaNYL 25MCG/HR PATCH [Duragesic 50 mcg TRANSDERM Q72H 01/06/16 04/21/17 History 25Mcg/Hr Patch] Ferrous Sulfate [Feosol] 325 mg PO DAILY 02/04/16 04/21/17 History Ascorbic Acid [Vitamin C] 500 mg PO DAILY 05/12/16 04/21/17 History Ergocalciferol [Vitamin D2] 50,000 unit PO Q7D 04/21/17 04/21/17 History Allergies Allergy/AdvReac Type Severity Reaction Status Date / Time Penicillins Allergy Rash/Hives Verified 04/21/17 11:00 Surgical - Exam Vital Signs Temp Pulse Resp BP Pulse Ox 101.2 F H 114 H 16 66/43 92 L 04/21/17 09:53 04/21/17 09:53 04/21/17 09:53 04/21/17 09:53 04/21/17 09:53 - General no distress, no pain, obese - Respiratory normal respiratory effort - Abdomen Abdomen: tender (Mild tenderness in left upper quadrant), no organomegaly, no guarding - Musculoskeletal other (Severe ulnar deviation of the fingers and deformity consistent with advanced rheumatoid arthritis) Results - Labs 04/22/17 03:00 04/22/17 03:00 Abnormal Lab Results - Last 24 Hours (Table) 04/21/17 04/21/17 04/21/17 Range/Units 10:11 10:11 10:11 WBC 28.3 H* (3.8-10.6) k/uL RBC (3.80-5.40) m/uL Hgb (11.4-16.0) gm/dL MCHC (31.0-37.0) g/dL RDW 15.8 H (11.5-15.5) % Neutrophils # 26.3 H (1.3-7.7) k/uL Lymphocytes # 0.8 L (1.0-4.8) k/uL PT (9.0-12.0) sec INR (<1.2) APTT (22.0-30.0) sec Chloride (98-107) mmol/L Carbon Dioxide (22-30) mmol/L BUN 34 H (7-17) mg/dL Creatinine 1.90 H (0.52-1.04) mg/dL Glucose (74-99) mg/dL POC Glucose (mg/dL) (75-99) mg/dL Plasma Lactic Acid Darryl 2.9 H* (0.7-2.0) mmol/L Calcium (8.4-10.2) mg/dL AST 62 H (14-36) U/L Alkaline Phosphatase 138 H (38-126) U/L Troponin I (0.000-0.034) ng/mL Total Protein 5.7 L (6.3-8.2) g/dL Albumin 2.7 L (3.5-5.0) g/dL Urine Appearance (Clear) Urine Protein (Negative) Urine Blood (Negative) Ur Leukocyte Esterase (Negative) Urine RBC (0-5) /hpf Urine WBC (0-5) /hpf Urine WBC Clumps (None) /hpf Urine Bacteria (None) /hpf 04/21/17 04/21/17 04/21/17 Range/Units 10:11 11:23 14:43 WBC (3.8-10.6) k/uL RBC (3.80-5.40) m/uL Hgb (11.4-16.0) gm/dL MCHC (31.0-37.0) g/dL RDW (11.5-15.5) % Neutrophils # (1.3-7.7) k/uL Lymphocytes # (1.0-4.8) k/uL PT 13.5 H (9.0-12.0) sec INR 1.4 H (<1.2) APTT 30.6 H (22.0-30.0) sec Chloride (98-107) mmol/L Carbon Dioxide (22-30) mmol/L BUN (7-17) mg/dL Creatinine (0.52-1.04) mg/dL Glucose (74-99) mg/dL POC Glucose (mg/dL) 121 H (75-99) mg/dL Plasma Lactic Acid Darryl (0.7-2.0) mmol/L Calcium (8.4-10.2) mg/dL AST (14-36) U/L Alkaline Phosphatase (38-126) U/L Troponin I (0.000-0.034) ng/mL Total Protein (6.3-8.2) g/dL Albumin (3.5-5.0) g/dL Urine Appearance Turbid H (Clear) Urine Protein 2+ H (Negative) Urine Blood Moderate H (Negative) Ur Leukocyte Esterase Large H (Negative) Urine RBC >182 H (0-5) /hpf Urine WBC >182 H (0-5) /hpf Urine WBC Clumps Many H (None) /hpf Urine Bacteria Moderate H (None) /hpf 04/22/17 04/22/17 04/22/17 Range/Units 03:00 03:00 03:00 WBC 32.8 H* (3.8-10.6) k/uL RBC 3.64 L (3.80-5.40) m/uL Hgb 10.3 L (11.4-16.0) gm/dL MCHC 30.0 L (31.0-37.0) g/dL RDW (11.5-15.5) % Neutrophils # 31.5 H (1.3-7.7) k/uL Lymphocytes # 0.6 L (1.0-4.8) k/uL PT (9.0-12.0) sec INR (<1.2) APTT (22.0-30.0) sec Chloride 112 H (98-107) mmol/L Carbon Dioxide 19 L (22-30) mmol/L BUN 32 H (7-17) mg/dL Creatinine 1.30 H (0.52-1.04) mg/dL Glucose 116 H (74-99) mg/dL POC Glucose (mg/dL) (75-99) mg/dL Plasma Lactic Acid Darryl (0.7-2.0) mmol/L Calcium 8.2 L (8.4-10.2) mg/dL AST (14-36) U/L Alkaline Phosphatase (38-126) U/L Troponin I 0.279 H* (0.000-0.034) ng/mL Total Protein (6.3-8.2) g/dL Albumin (3.5-5.0) g/dL Urine Appearance (Clear) Urine Protein (Negative) Urine Blood (Negative) Ur Leukocyte Esterase (Negative) Urine RBC (0-5) /hpf Urine WBC (0-5) /hpf Urine WBC Clumps (None) /hpf Urine Bacteria (None) /hpf 04/22/17 Range/Units 06:40 WBC (3.8-10.6) k/uL RBC (3.80-5.40) m/uL Hgb (11.4-16.0) gm/dL MCHC (31.0-37.0) g/dL RDW (11.5-15.5) % Neutrophils # (1.3-7.7) k/uL Lymphocytes # (1.0-4.8) k/uL PT (9.0-12.0) sec INR (<1.2) APTT (22.0-30.0) sec Chloride (98-107) mmol/L Carbon Dioxide (22-30) mmol/L BUN (7-17) mg/dL Creatinine (0.52-1.04) mg/dL Glucose (74-99) mg/dL POC Glucose (mg/dL) (75-99) mg/dL Plasma Lactic Acid Darryl (0.7-2.0) mmol/L Calcium (8.4-10.2) mg/dL AST (14-36) U/L Alkaline Phosphatase (38-126) U/L Troponin I 0.247 H* (0.000-0.034) ng/mL Total Protein (6.3-8.2) g/dL Albumin (3.5-5.0) g/dL Urine Appearance (Clear) Urine Protein (Negative) Urine Blood (Negative) Ur Leukocyte Esterase (Negative) Urine RBC (0-5) /hpf Urine WBC (0-5) /hpf Urine WBC Clumps (None) /hpf Urine Bacteria (None) /hpf Microbiology - Last 24 Hours (Table) 04/21/17 10:11 Blood Culture Gram Stain - Preliminary Blood 04/21/17 10:11 Blood Culture - Final Blood 04/21/17 10:11 Gram Stain - Preliminary Thigh - Right Wound Culture - Preliminary 04/21/17 11:23 Urine Culture - Preliminary Urine,Catheterized Diabetes panel 04/21/17 04/22/17 Range/Units 10:11 03:00 Sodium 139 139 (137-145) mmol/L Potassium 4.2 4.2 (3.5-5.1) mmol/L Chloride 105 112 H (98-107) mmol/L Carbon Dioxide 23 19 L (22-30) mmol/L BUN 34 H 32 H (7-17) mg/dL Creatinine 1.90 H 1.30 H (0.52-1.04) mg/dL Glucose 87 116 H (74-99) mg/dL Calcium 9.2 8.2 L (8.4-10.2) mg/dL AST 62 H (14-36) U/L ALT 45 (9-52) U/L Alkaline Phosphatase 138 H (38-126) U/L Total Protein 5.7 L (6.3-8.2) g/dL Albumin 2.7 L (3.5-5.0) g/dL Calcium panel 04/21/17 04/22/17 Range/Units 10:11 03:00 Calcium 9.2 8.2 L (8.4-10.2) mg/dL Phosphorus 3.3 (2.5-4.5) mg/dL Albumin 2.7 L (3.5-5.0) g/dL Pituitary panel 04/21/17 04/22/17 Range/Units 10:11 03:00 Sodium 139 139 (137-145) mmol/L Potassium 4.2 4.2 (3.5-5.1) mmol/L Chloride 105 112 H (98-107) mmol/L Carbon Dioxide 23 19 L (22-30) mmol/L BUN 34 H 32 H (7-17) mg/dL Creatinine 1.90 H 1.30 H (0.52-1.04) mg/dL Glucose 87 116 H (74-99) mg/dL Calcium 9.2 8.2 L (8.4-10.2) mg/dL Adrenal panel 04/21/17 04/22/17 Range/Units 10:11 03:00 Sodium 139 139 (137-145) mmol/L Potassium 4.2 4.2 (3.5-5.1) mmol/L Chloride 105 112 H (98-107) mmol/L Carbon Dioxide 23 19 L (22-30) mmol/L BUN 34 H 32 H (7-17) mg/dL Creatinine 1.90 H 1.30 H (0.52-1.04) mg/dL Glucose 87 116 H (74-99) mg/dL Calcium 9.2 8.2 L (8.4-10.2) mg/dL Total Bilirubin 0.8 (0.2-1.3) mg/dL AST 62 H (14-36) U/L ALT 45 (9-52) U/L Alkaline Phosphatase 138 H (38-126) U/L Total Protein 5.7 L (6.3-8.2) g/dL Albumin 2.7 L (3.5-5.0) g/dL - Imaging CT scan - abdomen: image reviewed (I personally reviewed the patient's computed tomography scan of the abdomen and pelvis and compared it with a computed tomography scan of the lumbosacral spine which had been performed on 10/29/2014. The calcification in the region of the left ureter that the radiologist suspected is a ureteral calculus had been present in the same location on the computed tomography scan in 2015 and is most likely a vascular calcification and not a ureteral calcification. The patient has no significant dilation of the ureter superior to this area.) Assessment and Plan (1) Septic shock Narrative/Plan: The patient's initial septic shock was probably related to acute left pyelonephritis which in turn was most likely related to a chronic urinary tract infection from her indwelling catheter. The patient has improved and is now normotensive. She has been afebrile since she was admitted and says that she feels much better. I'm in agreement with continuing Levaquin and vancomycin pending results of the patient's urine and blood cultures Status: Acute (2) Hydronephrosis Narrative/Plan: The patient has mild left hydronephrosis which could be from previous passage of a calculus from the left kidney. I did not see any left renal or ureteral calculi on her computed tomography scan performed in 2014 however. I do not feel that the patient has a left ureteral calculus and in view of the patient's clinical improvement I feel that further observation is reasonable. As long as the patient's renal function continues to improve I see no need to consider placement of a double-J catheter. Status: Acute
[2017-04-22] MEDS: ENOXAPARIN 30 MG/0.3 ML SYRINGE SQ SCH (08:29)
[2017-04-22] MEDS: PANTOPRAZOLE 40 MG/10 ML VIAL IV SCH (08:30)
--- NOTE | 2017-04-22 08:34 | XR ---
EXAMINATION TYPE: XR chest 1V portable DATE OF EXAM: 04/22/2017 COMPARISON: 04/21/2017 HISTORY: Shortness of breath TECHNIQUE: Single frontal view of the chest is obtained. FINDINGS: Right-sided central venous catheter noted with bilateral infiltrate greater on the left an d small effusion. No sizable pneumothorax. Diffuse osteopenia and arthropathy of the shoulders. IMPRESSION: 1. Bilateral infiltrate greater on the left appears stable. Cannot exclude mild venous congestion.
[2017-04-22] MEDS: MEROPENEM 1 GM in SODIUM CHLORIDE 0.9% 100 ML IVPB SCH ×2 (10:59→20:23)
[2017-04-22] MEDS ORDERED: LEVOFLOXACIN 750MG-D5W PMX 750 MG in DEXTROSE/WATER 1 150ML.BAG IVPB SCH (16:00)
--- NOTE | 2017-04-22 16:40 | P.PN ---
Subjective 66 years old female patient of Dr. Moyer with past medical history of right leg flap surgery done about 8 weeks ago, history of rheumatoid arthritis, hypothyroidism, DVT 1 year ago on 02, history of fibromyalgia, history of decubitus ulcer, previous MRSA infection presents today with worsening abdominal pain for the past 4 days that started on the left side and moved to her right low quadrant, associated with chills and feeling of warmth, generalized weakness. Patient denies any history of chest pain, shortness of breath, hematemesis, melena or vomiting. Patient was just discharged from [facility] one week ago after undergoing treatment for wound infection around the right leg flap surgery. Patient stated she was on wound VAC for epidural time before switching to silver sulfadiazine by the wound care nurse. Drain was removed one week ago. In the ED patient received 2 L of fluid but remained hypotensive and hence admitting to the ICU. Patient was started on norepinephrine. Patient lactic acid on admission was 2.9 which improved to 1.6 after fluid resuscitation, WBC 28.3 with urinalysis suggestive of infection patient was covered with vancomycin and Levaquin. Blood cultures and urine cultures were sent. Chest x- ray done in the ED suggested some mild intravascular congestion with though CT abdomen and pelvis showed left-sided diverticulosis, with mild left-sided hydronephrosis and pelvic calcification, a 4 mm nonobstructing calculus was also seen in the lower pole. 04/22: Patient remains in the intensive care unit. She is followed by Dr. Early for intensive care management. Patient is status post fluid bolus and is currently on IV antibiotics in form of Levaquin and vancomycin. Ultrasound bilateral lower extremities negative for DVT. Repeat chest x-ray showed bilateral infiltrate greater on the left appears stable. Cannot exclude mild venous congestion. Patient has been seen by Dr. Mercedes and he does not feel that the patient has a left ureteral calculus at this time and recommends further observation as long as patient's renal function continues to improve. Patient's white count is up to 32.8. BUN is 32 and creatinine 1.3 which is improved from yesterday of 34 and 1.9. Patient has a positive blood culture gram-negative bacilli. Wound culture (right thigh) and urine culture in progress. Patient is currently off norepinephrine. Repeat blood cultures will be requested and ID consult placed with Dr. Joya and he has placed the patient on meropenem versus Levaquin. Patient's Charles catheter has been changed on this admission. Objective - Vital Signs Vital signs: Vital Signs Temp 98.2 F 04/22/17 08:00 Pulse 78 04/22/17 09:00 Resp 14 04/22/17 09:00 BP 100/56 04/22/17 09:00 Pulse Ox 94 L 04/22/17 09:00 Intake & Output 04/21/17 04/22/17 04/22/17 18:59 06:59 18:59 Intake Total 7654.653 6575.876 756.844 Output Total 680 1520 480 Balance 406.203 -261.124 276.844 Weight 93.6 kg 93.6 kg Intake: IV 800 1200 500 Magnesium Sulfate-D5w Pmx 200 1 gm In Dextrose/Water 1 100ml.bag @ 100 mls/hr IVPB Q1H [facility] Rx#: [id number] Sodium Chloride 0.9% 1, 800 1200 300 000 ml @ 100 mls/hr IV . Q10H [facility] Rx#:[id number] Intake, IV Titration 86.203 58.876 6.844 Amount Norepinephrin 16 mg-0.9% 39.328 58.876 6.844 Ns Pmx 16 mg In 250 ml @ Titrate IV .Q0M [facility] Rx#: [id number] Norepinephrin 4 mg-0.9% 46.875 Ns Pmx 4 mg In 250 ml @ Titrate IV .Q0M [facility] Rx#: [id number] Oral 200 250 Output: Urine 680 1520 480 Uretheral (Charles) 500 Other: Voiding Method Indwelling Catheter Indwelling Catheter Indwelling Catheter # Bowel Movements 0 1 - Exam General appearance: average body habitus, cooperative, mild distress - EENT Eyes: EOMI, PERRLA, no photophobia, no scleral icterus ENT: normal oropharynx Ears: bilateral: normal - Neck Neck: no lymphadenopathy, no normal ROM Carotids: bilateral: upstroke normal - Respiratory Respiratory: bilateral: CTA, diminished (at bases ), negative: dullness, rales, rhonchi, wheezing - Cardiovascular Rhythm: regular Heart sounds: normal: S1, S2 Abnormal Heart Sounds: no systolic murmur, no diastolic murmur ankle Peripheral Edema: bilateral: None - Gastrointestinal General gastrointestinal: normal bowel sounds, soft, tenderness Localized gastrointestinal: tender: LUQ, LLQ - Integumentary Integumentary: cellulitis (Patient has skin tear at the coccyx, and a draining 1 cm size lesion at the dorsal surfaces of the right eye at the site of patient' s previous flap surgery) - Neurologic Neurologic: CNII-XII intact, focal deficits (no focal deficit ) - Musculoskeletal Musculoskeletal: gait normal, generalized weakness - Psychiatric Psychiatric: A&O x's 3, appropriate affect - Labs CBC & Chem 7: 04/22/17 03:00 04/22/17 03:00 Labs: Abnormal Lab Results - Last 24 Hours (Table) 04/21/17 04/21/17 04/21/17 Range/Units 10:11 10:11 10:11 WBC 28.3 H* (3.8-10.6) k/uL RBC (3.80-5.40) m/uL Hgb (11.4-16.0) gm/dL MCHC (31.0-37.0) g/dL RDW 15.8 H (11.5-15.5) % Neutrophils # 26.3 H (1.3-7.7) k/uL Lymphocytes # 0.8 L (1.0-4.8) k/uL PT (9.0-12.0) sec INR (<1.2) APTT (22.0-30.0) sec Chloride (98-107) mmol/L Carbon Dioxide (22-30) mmol/L BUN 34 H (7-17) mg/dL Creatinine 1.90 H (0.52-1.04) mg/dL Glucose (74-99) mg/dL POC Glucose (mg/dL) (75-99) mg/dL Plasma Lactic Acid Darryl 2.9 H* (0.7-2.0) mmol/L Calcium (8.4-10.2) mg/dL AST 62 H (14-36) U/L Alkaline Phosphatase 138 H (38-126) U/L Troponin I (0.000-0.034) ng/mL Total Protein 5.7 L (6.3-8.2) g/dL Albumin 2.7 L (3.5-5.0) g/dL Urine Appearance (Clear) Urine Protein (Negative) Urine Blood (Negative) Ur Leukocyte Esterase (Negative) Urine RBC (0-5) /hpf Urine WBC (0-5) /hpf Urine WBC Clumps (None) /hpf Urine Bacteria (None) /hpf 04/21/17 04/21/17 04/21/17 Range/Units 10:11 11:23 14:43 WBC (3.8-10.6) k/uL RBC (3.80-5.40) m/uL Hgb (11.4-16.0) gm/dL MCHC (31.0-37.0) g/dL RDW (11.5-15.5) % Neutrophils # (1.3-7.7) k/uL Lymphocytes # (1.0-4.8) k/uL PT 13.5 H (9.0-12.0) sec INR 1.4 H (<1.2) APTT 30.6 H (22.0-30.0) sec Chloride (98-107) mmol/L Carbon Dioxide (22-30) mmol/L BUN (7-17) mg/dL Creatinine (0.52-1.04) mg/dL Glucose (74-99) mg/dL POC Glucose (mg/dL) 121 H (75-99) mg/dL Plasma Lactic Acid Darryl (0.7-2.0) mmol/L Calcium (8.4-10.2) mg/dL AST (14-36) U/L Alkaline Phosphatase (38-126) U/L Troponin I (0.000-0.034) ng/mL Total Protein (6.3-8.2) g/dL Albumin (3.5-5.0) g/dL Urine Appearance Turbid H (Clear) Urine Protein 2+ H (Negative) Urine Blood Moderate H (Negative) Ur Leukocyte Esterase Large H (Negative) Urine RBC >182 H (0-5) /hpf Urine WBC >182 H (0-5) /hpf Urine WBC Clumps Many H (None) /hpf Urine Bacteria Moderate H (None) /hpf 04/22/17 04/22/17 04/22/17 Range/Units 03:00 03:00 03:00 WBC 32.8 H* (3.8-10.6) k/uL RBC 3.64 L (3.80-5.40) m/uL Hgb 10.3 L (11.4-16.0) gm/dL MCHC 30.0 L (31.0-37.0) g/dL RDW (11.5-15.5) % Neutrophils # 31.5 H (1.3-7.7) k/uL Lymphocytes # 0.6 L (1.0-4.8) k/uL PT (9.0-12.0) sec INR (<1.2) APTT (22.0-30.0) sec Chloride 112 H (98-107) mmol/L Carbon Dioxide 19 L (22-30) mmol/L BUN 32 H (7-17) mg/dL Creatinine 1.30 H (0.52-1.04) mg/dL Glucose 116 H (74-99) mg/dL POC Glucose (mg/dL) (75-99) mg/dL Plasma Lactic Acid Darryl (0.7-2.0) mmol/L Calcium 8.2 L (8.4-10.2) mg/dL AST (14-36) U/L Alkaline Phosphatase (38-126) U/L Troponin I 0.279 H* (0.000-0.034) ng/mL Total Protein (6.3-8.2) g/dL Albumin (3.5-5.0) g/dL Urine Appearance (Clear) Urine Protein (Negative) Urine Blood (Negative) Ur Leukocyte Esterase (Negative) Urine RBC (0-5) /hpf Urine WBC (0-5) /hpf Urine WBC Clumps (None) /hpf Urine Bacteria (None) /hpf 04/22/17 Range/Units 06:40 WBC (3.8-10.6) k/uL RBC (3.80-5.40) m/uL Hgb (11.4-16.0) gm/dL MCHC (31.0-37.0) g/dL RDW (11.5-15.5) % Neutrophils # (1.3-7.7) k/uL Lymphocytes # (1.0-4.8) k/uL PT (9.0-12.0) sec INR (<1.2) APTT (22.0-30.0) sec Chloride (98-107) mmol/L Carbon Dioxide (22-30) mmol/L BUN (7-17) mg/dL Creatinine (0.52-1.04) mg/dL Glucose (74-99) mg/dL POC Glucose (mg/dL) (75-99) mg/dL Plasma Lactic Acid Darryl (0.7-2.0) mmol/L Calcium (8.4-10.2) mg/dL AST (14-36) U/L Alkaline Phosphatase (38-126) U/L Troponin I 0.247 H* (0.000-0.034) ng/mL Total Protein (6.3-8.2) g/dL Albumin (3.5-5.0) g/dL Urine Appearance (Clear) Urine Protein (Negative) Urine Blood (Negative) Ur Leukocyte Esterase (Negative) Urine RBC (0-5) /hpf Urine WBC (0-5) /hpf Urine WBC Clumps (None) /hpf Urine Bacteria (None) /hpf Microbiology - Last 24 Hours (Table) 04/21/17 10:11 Blood Culture Gram Stain - Preliminary Blood 04/21/17 10:11 Blood Culture - Final Blood 04/21/17 10:11 Gram Stain - Preliminary Thigh - Right Wound Culture - Preliminary 04/21/17 11:23 Urine Culture - Preliminary Urine,Catheterized Assessment and Plan Plan: #1 septic shock secondary to Charles catheter associated urinary tract infection and pyelonephritis with gram-negative bacteremia, septicemia- increased WBC, tachycardia, increased lactic acid associated with perinephric stranding seen on the CT abdomen, makes it the likely source. Patient also has a wound on her right dorsal part of the thigh at the site of incision of her recent surgerical flap around 1 cm with the overlying drainage which could also be a possibility source of infection - Patient adequately fluid resuscitated with 30 mL/kg - Lactic acid improved to 1.6 after fluid resuscitation - Continue vancomycin and meropenem -Blood culture Culture urine culture sent - Patient has history of rheumatoid arthritis may have underlying adrenal insufficiency, with stress doses of hydrocortisone 50 mg every 8 -Consult with Dr. Joya appreciated -Repeat blood cultures #2 history of DVT- on xarelto for 1 year, anticoagulant held, patient placed on Lovenox 30 subcu daily as prophylaxis, USG venous b/l r/o acute DVT #3 history of rheumatoid arthritis- stable #4 history of hypothyroidism continue Synthyroid #5 history of MRSA infection- wound culture sent from the site of the surgery patient covered with vancomycin #6 chronic indwelling Charles catheter which has been changed on this admission,- poor urine output, monitor TOMER's while in the ICU. Urology consulted for an hydronephrosis seen on the left side. #7 acute kidney injury likely secondary to sepsis- continue fluid at 100 mL/h, repeat CMP tomorrow #8 DVT prophylaxis with Lovenox #9 GI prophylaxis - Pepcid 20 mg twice a day #10. Disposition- patient will stay in ICU for monitoring and will be inpatient probably for the next 3 nights #11 CODE STATUS full code Impression and plan of care have been directed as dictated by the signing physician. Arlene Darnell nurse practitioner acting as scribe for signing physician.
--- NOTE | 2017-04-22 17:28 | P.PN ---
Subjective Principal diagnosis: Acute septic shock from acute urinary tract infection This is a 66-year-old female with history of multiple medical problems including right leg flap surgery done about 8 weeks ago, and she continues to have some purulent drainage from the site of the surgery in the back of her thigh. Patient is also known to have history of rheumatoid arthritis, hypothyroidism, deep vein thrombosis, maintained on Xarelto, history of fibromyalgia, and history of decubitus ulcers. Patient had previous MRSA infection. Patient was brought into the ER mostly with multiple complaints including not feeling well, weakness, low-grade fever, and this has been going on for the last couple of days. Patient was also complaining of left flank pain and left lower quadrant pain, also noted to have thick discolored urine, bloody at times, and she does have a chronic indwelling Charles catheter. During her evaluation in the ER, patient was noted to be hypotensive she received 2 L of crystalloids, and she remained hypotensive hence at the right subclavian central line was placed, and patient was started on norepinephrine. She is presently on 20 mics of norepinephrine. Blood pressure seems to be stabilizing. She is also receiving her third liter of 0.9 normal saline. Improved significantly since admission but remains critically ill. Patient was also noted to have significant leukocytosis with WBC count of 28.3 elevated lactic acid of 2.9, repeat was 1.6 after fluid boluses. She was also noted to have significant pyuria and bacteriuria noted in her urinalysis. CT of abdomen and pelvis showed left sided diverticulosis, mild the left sided hydronephrosis with mid pelvic level calcifications, renal edema was noted, underlying infection is not excluded. There was also a 4 mm nonobstructing calculus, right horseshoe component lower pole. The patient herself is not the greatest historian, she had multiple vague complaints, but she had no clue how sick she was upon presentation. Patient was started on antibiotics in the form of Levaquin and vancomycin, (patient is ALLERGIC to penicillin). Patient was given fluid boluses she is presently on her third liter of crystalloid and she was placed on norepinephrine presently being titrated to a mean arterial pressure of 65 or higher. Chest x-ray is beginning to show mild central vascular congestion, and chronic parenchymal changes with basilar atelectasis, doubt infiltrates. Patient denied any headaches no blurred vision no dizziness. Denied any shortness of breath cough or wheezing. No nausea no vomiting, she did have abdominal pain mostly in the left lower quadrant, one episode of diarrhea yesterday, but no melena no hematemesis. Patient had a chronic indwelling Charles catheter. Denies any specific urinary symptoms. No dysuria, no frequency, no urgency. Again she does have left flank pain. Patient is known to have histories of severe rheumatoid arthritis used to see Dr. Hernandez and she was treated in the past with Arava. Patient was reevaluated today on 04/22/2017, doing much better compared to yesterday, hemodynamically stable, off norepinephrine. IV fluid is at 100 mL per hour. Patient has excellent urine output, her cultures of the blood came back negative for gram-negative bacilli, final identification is pending. In the meantime the patient seems to be on appropriate antibiotics. She is on Merrem and on vancomycin. I discontinued her hydrocortisone since the patient was not on maintenance dose of prednisone and the last one year. Patient is relatively asymptomatic, feeling much better today compared to how she felt yesterday upon presentation. Continues to have leukocytosis with WBC count of 32.8. Basic metabolic profile is normal. Renal profile showed BUN of 32 creatinine of 1.3 significantly improved compared to yesterday's labs. Patient denies any abdominal pain, no shortness of breath, her weakness seems to be even significantly improved. Objective - Vital Signs Vital signs: Vital Signs Temp 98.2 F 04/22/17 16:00 Pulse 79 04/22/17 16:10 Resp 25 H 04/22/17 16:10 BP 100/55 04/22/17 16:10 Pulse Ox 98 04/22/17 16:10 Intake & Output 04/21/17 04/22/17 04/22/17 18:59 06:59 18:59 Intake Total 3431.213 3654.876 1406.844 Output Total 680 1520 1080 Balance 406.203 -261.124 326.844 Weight 93.6 kg 93.6 kg 93.6 kg Intake: IV 800 1200 1150 Magnesium Sulfate-D5w Pmx 200 1 gm In Dextrose/Water 1 100ml.bag @ 100 mls/hr IVPB Q1H [facility] Rx#: [id number] Sodium Chloride 0.9% 1, 800 1200 950 000 ml @ 100 mls/hr IV . Q10H [facility] Rx#:[id number] Intake, IV Titration 86.203 58.876 6.844 Amount Norepinephrin 16 mg-0.9% 39.328 58.876 6.844 Ns Pmx 16 mg In 250 ml @ Titrate IV .Q0M [facility] Rx#: [id number] Norepinephrin 4 mg-0.9% 46.875 Ns Pmx 4 mg In 250 ml @ Titrate IV .Q0M ONE Rx#: [id number] Oral 200 250 Output: Urine 680 1520 1080 Uretheral (Charles) 500 Other: Voiding Method Indwelling Catheter Indwelling Catheter Indwelling Catheter # Bowel Movements 0 1 - Exam General appearance: Pleasant 66-year-old female, in no distress, presently on nasal cannula. Head exam: Normocephalic, atraumatic Eye exam: PERRLA, EOMI. No icterus. ENT exam: Clear throat, dry mucous membranes, nasal mucosa is intact. Neck exam: No stridor, no cervical lymphadenopathy, no thyromegaly. Respiratory exam: Diminished breath sounds and crackles at the bases noted bilaterally. Cardiovascular Exam: Normal S1 and S2, no S3 gallop. No murmur. GI/Abdominal exam: Abdomen is soft, tenderness (Mild epigastric tenderness). No rebound, no guarding. Extremities exam: (Right posterior leg flap clean and dry and intact and healing well except for the lower portion with less than 1 cm open area with mild purulent discharge.) Neurological exam: No focal neurologic deficit Psychiatric exam: Present: normal affect, normal mood Skin exam: Present: other (Healed incision except for lower opening with drainage.) - Labs CBC & Chem 7: 04/22/17 03:00 04/22/17 03:00 Labs: Abnormal Lab Results - Last 24 Hours (Table) 04/22/17 04/22/17 04/22/17 Range/Units 03:00 03:00 03:00 WBC 32.8 H* (3.8-10.6) k/uL RBC 3.64 L (3.80-5.40) m/uL Hgb 10.3 L (11.4-16.0) gm/dL MCHC 30.0 L (31.0-37.0) g/dL Neutrophils # 31.5 H (1.3-7.7) k/uL Lymphocytes # 0.6 L (1.0-4.8) k/uL Chloride 112 H (98-107) mmol/L Carbon Dioxide 19 L (22-30) mmol/L BUN 32 H (7-17) mg/dL Creatinine 1.30 H (0.52-1.04) mg/dL Glucose 116 H (74-99) mg/dL Calcium 8.2 L (8.4-10.2) mg/dL Troponin I 0.279 H* (0.000-0.034) ng/mL 04/22/17 04/22/17 Range/Units 06:40 10:57 WBC (3.8-10.6) k/uL RBC (3.80-5.40) m/uL Hgb (11.4-16.0) gm/dL MCHC (31.0-37.0) g/dL Neutrophils # (1.3-7.7) k/uL Lymphocytes # (1.0-4.8) k/uL Chloride (98-107) mmol/L Carbon Dioxide (22-30) mmol/L BUN (7-17) mg/dL Creatinine (0.52-1.04) mg/dL Glucose (74-99) mg/dL Calcium (8.4-10.2) mg/dL Troponin I 0.247 H* 0.195 H* (0.000-0.034) ng/mL Microbiology - Last 24 Hours (Table) 04/21/17 11:23 Urine Culture - Preliminary Urine,Catheterized Gram Neg Bacilli 04/21/17 10:11 Blood Culture Gram Stain - Preliminary Blood 04/21/17 10:11 Gram Stain - Preliminary Thigh - Right Wound Culture - Preliminary Gram Neg Bacilli 04/21/17 10:11 Blood Culture - Final Blood Assessment and Plan Plan: Impression: 1 acute septic shock secondary to urinary tract infection, possible pyelonephritis. 2 suspect mild fluid overload, no clear-cut evidence of pneumonia a son the chest x-ray, there is some basilar atelectasis. 3 acute right lower extremity cellulitis related to recent surgical flap and ongoing purulent drainage from the surgical site could also be another source of infection and sepsis. 4 history of deep vein thrombosis 5 history of rheumatoid arthritis 6 history of hypothyroidism 7 history of previous MRSA infection. 8 history of chronic indwelling Charles catheter. 9 history of fibromyalgia 10 acute kidney injury related to sepsis. 11 acute gram-negative bacteremia from urinary tract infection. Recommendation: Continue present supportive care measures including antibiotics , consider stopping vancomycin in a.m., adjust antibiotics based on the final culture and sensitivity. Merrem for now is excellent coverage for presumptive urinary tract infection. We'll continue to follow, could be transferred out of the ICU since the patient is hemodynamically stable and shown significant improvement over the last 24 hours. Time with Patient: Less than 30
--- NOTE | 2017-04-22 21:42 | P.CON ---
Consult Note - . Consult date: 04/22/17 Assessment/Plan:: This is a 66-year-old female patient that is well-known to ID service as she has been treated for nonhealing stage IV pressure ulcer in the right ischium and stage III pressure ulcer in the right first toe as well as right lateral leg and was previously under the care of Dr. Medina and [facility] She has subsequently underwent a right leg flap surgery 8 weeks ago. She was just discharged from [facility] one week ago after undergoing treatment for wound infection. Drain was removed 1 week ago. She was on a wound VAC but then switched to Silvadene by the wound care nurse. We have also seen her in the past for sepsis secondary to E. coli urinary tract infection and required PICC line placement and IV antibiotics which was in the form of ceftriaxone. She now presents to [facility] emergency center with abdominal pain for 4 days on the left side then to her right lower quadrant, chills and weakness. Patient presented with hypotension and was started on the sepsis protocol and is status post IV fluids and norepinephrine which was discontinued this morning. Her initial lactic acid was 2.9 and has improved. White count at 28.3 initially and has increased to 32.8. Patient was admitted to the intensive care unit and placed on vancomycin and Levaquin. Blood cultures came back with gram-negative bacilli. Patient has had urinary tract infection with E. coli that was Levaquin resistant in the past. There was also on CAT scan left-sided diverticulosis, mild left-sided hydronephrosis and pelvic calcification, 4 mm nonobstructing calculus in the lower pole. Patient has been evaluated by Dr. Mercedes and he does not feel that the patient has a left ureteral calculus at this time and recommends further observation as long as patient's renal function continues to improve. Renal function is improving. Please see the consult note is dictated by nurse practitioner Mrs. Arlene Darnell. This pleasant woman presents to Hospital of evidence of gram-negative sepsis. She's had the flap and graft performed to the right lower extremity and apparently is doing quite well. Still having some drainage from the sites were drain tubes were in place. The leg is not very tender. There is only minimal erythema. Patient remains quite ill but is hemodynamically more stable. Not requiring vasopressor therapy. Did well fluid resuscitation. Will be followed closely by urology to ensure there is no need for intervention. Await final cultures to help determine de-escalation of antimicrobial therapy if possible. Currently receiving meropenem given her history and her ALLERGIES. She has a profound leukocytosis in the bases of her gram-negative sepsis. Also has acute renal failure on the basis of her current sepsis. I agree with evaluation, assessment and plan is dictated by nurse practitioner Mrs. Arlene Darnell.
[2017-04-23 03:38] LABS: Glucose,Whole Blood 110 mg/dL (75-99)
[2017-04-23 04:42] LABS: Basophils % (A) 0 %; CH 28.2; CHCM 30.9; Eosinophils % (A) 0 %; HCT 31.2 % (34.0-46.0); HGB 9.5 gm/dL (11.4-16.0); Hypochromasia Slight; Luc % (Auto) 0; Lymphocytes # (A) 0.7 k/uL (1.0-4.8); Lymphocytes % (A) 3 %; MCHC 30.5 g/dL (31.0-37.0); MCV 91.9 fL (80.0-100.0); Monocytes # (A) 0.5 k/uL (0-1.0); Monocytes % (A) 2 %; Neutrophils # (A) 21.7 k/uL (1.3-7.7); Neutrophils % (A) 94 %; RBC 3.39 m/uL (3.80-5.40); RDW 15.9 % (11.5-15.5); WBC (Perox) 23.72
[2017-04-23 04:48] LABS: Anion Gap 7 mmol/L; Blood Urea Nitrogen 36 mg/dL (7-17); Calcium 8.3 mg/dL (8.4-10.2); Carbon Dioxide 20 mmol/L (22-30); Chloride 113 mmol/L (98-107); Glucose 92 mg/dL (74-99); Magnesium 2.2 mg/dL (1.6-2.3); Non-African American GFR(MDRD) 57 (>60 ml/min/1.73 sqM); Phosphorus 2.2 mg/dL (2.5-4.5); Potassium 3.7 mmol/L (3.5-5.1); Sodium 140 mmol/L (137-145)
[2017-04-23] MEDS ORDERED: Potassium Replacement Protocol 1 EACH MISC MISCELLANE PRN (05:30)
[2017-04-23] MEDS ORDERED: Phosphorus Replacement Protoco 1 EACH MISC MISCELLANE PRN (05:38)
[2017-04-23] MEDS ORDERED: SODIUM PHOSPHATE 10 MMOL in SODIUM CHLORIDE 0.9% 250 ML IVPB ONE (05:38)
[2017-04-23] MEDS ORDERED: POTASSIUM CHLORIDE ER 20 MEQ TAB.ER PO SCH (06:00)
[2017-04-23] MEDS ORDERED: VANCOMYCIN 1,500 MG in SODIUM CHLORIDE 0.9% 250 ML IVPB SCH (06:00)
[2017-04-23] MEDS: ENOXAPARIN 30 MG/0.3 ML SYRINGE SQ SCH (08:02)
[2017-04-23] MEDS: SODIUM CHLORIDE 0.9% 1,000 ML IV SCH ×3 (08:02→22:15)
[2017-04-23] MEDS: PANTOPRAZOLE 40 MG/10 ML VIAL IV SCH (08:02)
[2017-04-23] MEDS: MEROPENEM 1 GM in SODIUM CHLORIDE 0.9% 100 ML IVPB SCH ×2 (08:16→20:03)
--- NOTE | 2017-04-23 08:27 | XR ---
EXAMINATION TYPE: XR chest 1V portable DATE OF EXAM: 04/23/2017 COMPARISON: 04/22/2017 HISTORY: Shortness of breath TECHNIQUE: Single frontal view of the chest is obtained. FINDINGS: Left lower lobe infiltrate and cardiomegaly are stable. Right-sided central venous cathete r stable. No pneumothorax. Right lung remains clear. Hypertrophic change of the spine. Arthropathy of the shoulders. Subsegmental linear changes at the right lung base are improved. Most likely related to atelectasis. Prominence of the hilum stable. IMPRESSION: 1. Stable left lower lobe infiltrate. 2. Interval improvement in right-sided areas of subsegmental consolidation.
[2017-04-23] MEDS: HYDROcodone/APAP 10-325MG 1 EACH TAB PO PRN (10:23)
[2017-04-23] MEDS: LACTULOSE 20 GM/30 ML CUP PO SCH ×2 (13:08→19:59)
--- NOTE | 2017-04-23 15:04 | P.PN ---
Progress Note - Text The patient remains afebrile and hemodynamically stable. She says she feels better overall. Her urine is os likely clear. The when/creatinine have improved to 36/0.97. White blood count is 23,000 and is improved. One blood culture appears to be growing a Proteus organism. Impression: Patient's overall history is suggestive of severe left pyelonephritis which is probably secondary to Proteus from her indwelling catheter. The ureter in a horseshoe kidney passes anterior to the lower pole and isthmus of the kidney and inflammation within the kidney could cause temporary hydronephrosis. Would explain the patient's improved renal function however passage of a small calculus prior to the computed tomography scan could also have been an alternative scenario. Recommendation: The patient should be kept on her current antibiotics pending final results of the blood and urine culture. Unfortunately she requires an indwelling catheter which will increase her risk of future infections.
--- NOTE | 2017-04-23 15:45 | P.PN ---
Subjective 66 years old female patient of Dr. Moyer with past medical history of right leg flap surgery done about 8 weeks ago, history of rheumatoid arthritis, hypothyroidism, DVT 1 year ago on 02, history of fibromyalgia, history of decubitus ulcer, previous MRSA infection presents today with worsening abdominal pain for the past 4 days that started on the left side and moved to her right low quadrant, associated with chills and feeling of warmth, generalized weakness. Patient denies any history of chest pain, shortness of breath, hematemesis, melena or vomiting. Patient was just discharged from [facility] one week ago after undergoing treatment for wound infection around the right leg flap surgery. Patient stated she was on wound VAC for epidural time before switching to silver sulfadiazine by the wound care nurse. Drain was removed one week ago. In the ED patient received 2 L of fluid but remained hypotensive and hence admitting to the ICU. Patient was started on norepinephrine. Patient lactic acid on admission was 2.9 which improved to 1.6 after fluid resuscitation, WBC 28.3 with urinalysis suggestive of infection patient was covered with vancomycin and Levaquin. Blood cultures and urine cultures were sent. Chest x- ray done in the ED suggested some mild intravascular congestion with though CT abdomen and pelvis showed left-sided diverticulosis, with mild left-sided hydronephrosis and pelvic calcification, a 4 mm nonobstructing calculus was also seen in the lower pole. 04/22: Patient remains in the intensive care unit. She is followed by Dr. Early for intensive care management. Patient is status post fluid bolus and is currently on IV antibiotics in form of Levaquin and vancomycin. Ultrasound bilateral lower extremities negative for DVT. Repeat chest x-ray showed bilateral infiltrate greater on the left appears stable. Cannot exclude mild venous congestion. Patient has been seen by Dr. Mercedes and he does not feel that the patient has a left ureteral calculus at this time and recommends further observation as long as patient's renal function continues to improve. Patient's white count is up to 32.8. BUN is 32 and creatinine 1.3 which is improved from yesterday of 34 and 1.9. Patient has a positive blood culture gram-negative bacilli. Wound culture (right thigh) and urine culture in progress. Patient is currently off norepinephrine. Repeat blood cultures will be requested and ID consult placed with Dr. Joya and he has placed the patient on meropenem versus Levaquin. Patient's Charles catheter has been changed on this admission. 04/23: Patient remains in intensive care unit has been cleared for transfer to monitored floor with telemetry by Dr. Early. Patient was back on norepinephrine last night but this was discontinued before the day shift today. Patient feels like she needs to have a bowel movement and having some discomfort in her abdomen. Lactulose has been added. Initial blood culture is showing Proteus species and otherwise cultures are in progress. Repeat blood cultures obtained on April 22 are also positive and repeat blood culture will be ordered for the morning. Patient's home [place] dose will be resumed as she is complaining of generalized arthritic pain Objective - Vital Signs Vital signs: Vital Signs Temp 98.7 F 04/23/17 08:00 Pulse 77 04/23/17 10:00 Resp 26 H 04/23/17 10:00 BP 102/54 04/23/17 10:00 Pulse Ox 94 L 04/23/17 10:00 Intake & Output 04/22/17 04/23/17 04/23/17 18:59 06:59 18:59 Intake Total 7397.008 2017 758.813 Output Total 1280 1190 385 Balance 426.844 -90 373.813 Weight 93.6 kg 98.1 kg Intake: IV 1450 1100 750 Magnesium Sulfate-D5w Pmx 200 1 gm In Dextrose/Water 1 100ml.bag @ 100 mls/hr IVPB Q1H [facility] Rx#: [id number] Meropenem 1 gm In Sodium 100 Chloride 0.9% 100 ml @ 200 mls/hr IVPB Q12HR [facility] Rx#:[id number] Sodium Chloride 0.9% 1, 1250 1100 400 000 ml @ 100 mls/hr IV . Q10H [facility] Rx#:[id number] Sodium Phosphate 10 mmol 125 In Sodium Chloride 0.9% 250 ml @ 125 mls/hr IVPB ONCE ONE Rx#:[id number] Vancomycin 1,500 mg In 125 Sodium Chloride 0.9% 250 ml @ 125 mls/hr IVPB Q48H [facility] Rx#:[id number] Intake, IV Titration 6.844 0 8.813 Amount Norepinephrin 16 mg-0.9% 6.844 0 8.813 Ns Pmx 16 mg In 250 ml @ Titrate IV .Q0M [facility] Rx#: [id number] Oral 250 Output: Urine 1280 1190 385 Other: Voiding Method Indwelling Catheter Indwelling Catheter # Bowel Movements 1 - Exam General appearance: average body habitus, cooperative, mild distress - EENT Eyes: EOMI, PERRLA, no photophobia, no scleral icterus ENT: normal oropharynx Ears: bilateral: normal - Neck Neck: no lymphadenopathy, no normal ROM Carotids: bilateral: upstroke normal - Respiratory Respiratory: bilateral: CTA, diminished (at bases ), negative: dullness, rales, rhonchi, wheezing - Cardiovascular Rhythm: regular Heart sounds: normal: S1, S2 Abnormal Heart Sounds: no systolic murmur, no diastolic murmur ankle Peripheral Edema: bilateral: None - Gastrointestinal General gastrointestinal: normal bowel sounds, soft, tenderness Localized gastrointestinal: tender: LUQ, LLQ - Integumentary Integumentary: cellulitis (Patient has skin tear at the coccyx, and a draining 1 cm size lesion at the dorsal surfaces of the right eye at the site of patient' s previous flap surgery) - Neurologic Neurologic: CNII-XII intact, focal deficits (no focal deficit ) - Musculoskeletal Musculoskeletal: gait normal, generalized weakness - Psychiatric Psychiatric: A&O x's 3, appropriate affect - Labs CBC & Chem 7: 04/23/17 04:30 04/23/17 04:30 Labs: Abnormal Lab Results - Last 24 Hours (Table) 04/23/17 04/23/17 04/23/17 Range/Units 03:32 04:30 04:30 WBC 23.0 H (3.8-10.6) k/uL RBC 3.39 L (3.80-5.40) m/uL Hgb 9.5 L (11.4-16.0) gm/dL Hct 31.2 L (34.0-46.0) % MCHC 30.5 L (31.0-37.0) g/dL RDW 15.9 H (11.5-15.5) % Neutrophils # 21.7 H (1.3-7.7) k/uL Lymphocytes # 0.7 L (1.0-4.8) k/uL Chloride 113 H (98-107) mmol/L Carbon Dioxide 20 L (22-30) mmol/L BUN 36 H (7-17) mg/dL POC Glucose (mg/dL) 110 H (75-99) mg/dL Calcium 8.3 L (8.4-10.2) mg/dL Phosphorus 2.2 L (2.5-4.5) mg/dL Microbiology - Last 24 Hours (Table) 04/21/17 11:23 Urine Culture - Preliminary Urine,Catheterized Gram Neg Bacilli Gram Neg Bacilli#2 04/22/17 10:57 Blood Culture Gram Stain - Preliminary Blood 04/22/17 10:57 Blood Culture - Final Blood 04/21/17 10:11 Blood Culture Gram Stain - Preliminary Blood Blood Culture - Preliminary Proteus spec 04/21/17 10:11 Gram Stain - Preliminary Thigh - Right Wound Culture - Preliminary Gram Neg Bacilli Assessment and Plan Plan: #1 septic shock secondary to Charles catheter associated urinary tract infection and pyelonephritis with gram-negative bacteremia, septicemia. Patient also has a wound on her right dorsal part of the thigh at the site of incision of her recent surgerical flap around 1 cm with the overlying drainage which could also be a possibility source of infection - Patient adequately fluid resuscitated with 30 mL/kg - Lactic acid improved to 1.6 after fluid resuscitation - Continue vancomycin and meropenem -Blood culture Culture urine culture sent - Patient has history of rheumatoid arthritis may have underlying adrenal insufficiency, with stress doses of hydrocortisone 50 mg every 8 -Consult with Dr. Joya appreciated -Repeat blood cultures #2 history of DVT- on xarelto for 1 year, anticoagulant held, patient placed on Lovenox 30 subcu daily as prophylaxis, USG venous b/l r/o acute DVT #3 history of rheumatoid arthritis- stable #4 history of hypothyroidism continue Synthyroid #5 history of MRSA infection- wound culture sent from the site of the surgery patient covered with vancomycin #6 chronic indwelling Charles catheter which has been changed on this admission,- poor urine output, monitor TOMER's while in the ICU. Urology consulted for an hydronephrosis seen on the left side. #7 acute kidney injury likely secondary to sepsis- continue fluid at 100 mL/h, repeat CMP tomorrow #8 DVT prophylaxis with Lovenox #9 GI prophylaxis - Pepcid 20 mg twice a day #10. Disposition- patient will stay in ICU for monitoring and will be inpatient probably for the next 3 nights #11 CODE STATUS full code Impression and plan of care have been directed as dictated by the signing physician. Arlene Darnell nurse practitioner acting as scribe for signing physician.
--- NOTE | 2017-04-23 16:29 | P.PN ---
Subjective Principal diagnosis: Acute septic shock from acute urinary tract infection This is a 66-year-old female with history of multiple medical problems including right leg flap surgery done about 8 weeks ago, and she continues to have some purulent drainage from the site of the surgery in the back of her thigh. Patient is also known to have history of rheumatoid arthritis, hypothyroidism, deep vein thrombosis, maintained on Xarelto, history of fibromyalgia, and history of decubitus ulcers. Patient had previous MRSA infection. Patient was brought into the ER mostly with multiple complaints including not feeling well, weakness, low-grade fever, and this has been going on for the last couple of days. Patient was also complaining of left flank pain and left lower quadrant pain, also noted to have thick discolored urine, bloody at times, and she does have a chronic indwelling Charles catheter. During her evaluation in the ER, patient was noted to be hypotensive she received 2 L of crystalloids, and she remained hypotensive hence at the right subclavian central line was placed, and patient was started on norepinephrine. She is presently on 20 mics of norepinephrine. Blood pressure seems to be stabilizing. She is also receiving her third liter of 0.9 normal saline. Improved significantly since admission but remains critically ill. Patient was also noted to have significant leukocytosis with WBC count of 28.3 elevated lactic acid of 2.9, repeat was 1.6 after fluid boluses. She was also noted to have significant pyuria and bacteriuria noted in her urinalysis. CT of abdomen and pelvis showed left sided diverticulosis, mild the left sided hydronephrosis with mid pelvic level calcifications, renal edema was noted, underlying infection is not excluded. There was also a 4 mm nonobstructing calculus, right horseshoe component lower pole. The patient herself is not the greatest historian, she had multiple vague complaints, but she had no clue how sick she was upon presentation. Patient was started on antibiotics in the form of Levaquin and vancomycin, (patient is ALLERGIC to penicillin). Patient was given fluid boluses she is presently on her third liter of crystalloid and she was placed on norepinephrine presently being titrated to a mean arterial pressure of 65 or higher. Chest x-ray is beginning to show mild central vascular congestion, and chronic parenchymal changes with basilar atelectasis, doubt infiltrates. Patient denied any headaches no blurred vision no dizziness. Denied any shortness of breath cough or wheezing. No nausea no vomiting, she did have abdominal pain mostly in the left lower quadrant, one episode of diarrhea yesterday, but no melena no hematemesis. Patient had a chronic indwelling Charles catheter. Denies any specific urinary symptoms. No dysuria, no frequency, no urgency. Again she does have left flank pain. Patient is known to have histories of severe rheumatoid arthritis used to see Dr. Hernandez and she was treated in the past with Arava. Patient was reevaluated today on 04/22/2017, doing much better compared to yesterday, hemodynamically stable, off norepinephrine. IV fluid is at 100 mL per hour. Patient has excellent urine output, her cultures of the blood came back negative for gram-negative bacilli, final identification is pending. In the meantime the patient seems to be on appropriate antibiotics. She is on Merrem and on vancomycin. I discontinued her hydrocortisone since the patient was not on maintenance dose of prednisone and the last one year. Patient is relatively asymptomatic, feeling much better today compared to how she felt yesterday upon presentation. Continues to have leukocytosis with WBC count of 32.8. Basic metabolic profile is normal. Renal profile showed BUN of 32 creatinine of 1.3 significantly improved compared to yesterday's labs. Patient denies any abdominal pain, no shortness of breath, her weakness seems to be even significantly improved. Patient was reevaluated today on 04/23/2017, continues to do well, however last night required the placement on norepinephrine again because of low blood pressure, however this was discontinued at 7 AM this morning. Overall the patient is doing better, relatively asymptomatic. WBC count is coming down to 23.0 from 32.8 on admission hemoglobin is 9.5 electrolytes and renal profile are normal. Significantly improved. Chest x-ray is showing left basilar atelectasis, no evidence of pneumonia at this time. Patient has no active pulmonary symptoms. Her cultures from the urine blood 1 were all reviewed, and her antibiotics are being addressed by Dr. Joya on the case. Objective - Vital Signs Vital signs: Vital Signs Temp 98.6 F 04/23/17 12:00 Pulse 83 04/23/17 15:00 Resp 23 04/23/17 15:00 BP 95/50 04/23/17 15:00 Pulse Ox 93 L 04/23/17 15:00 Intake & Output 04/22/17 04/23/17 04/23/17 18:59 06:59 18:59 Intake Total 4678.029 2546 1258.813 Output Total 1280 1190 725 Balance 426.844 -90 533.813 Weight 93.6 kg 98.1 kg Intake: IV 1450 1100 1250 Magnesium Sulfate-D5w Pmx 200 1 gm In Dextrose/Water 1 100ml.bag @ 100 mls/hr IVPB Q1H [facility] Rx#: [id number] Meropenem 1 gm In Sodium 100 Chloride 0.9% 100 ml @ 200 mls/hr IVPB Q12HR [facility] Rx#:[id number] Sodium Chloride 0.9% 1, 1250 1100 900 000 ml @ 100 mls/hr IV . Q10H [facility] Rx#:[id number] Sodium Phosphate 10 mmol 125 In Sodium Chloride 0.9% 250 ml @ 125 mls/hr IVPB ONCE ONE Rx#:[id number] Vancomycin 1,500 mg In 125 Sodium Chloride 0.9% 250 ml @ 125 mls/hr IVPB Q48H [facility] Rx#:[id number] Intake, IV Titration 6.844 0 8.813 Amount Norepinephrin 16 mg-0.9% 6.844 0 8.813 Ns Pmx 16 mg In 250 ml @ Titrate IV .Q0M [facility] Rx#: [id number] Oral 250 Output: Urine 1280 1190 725 Other: Voiding Method Indwelling Catheter Indwelling Catheter Indwelling Catheter # Bowel Movements 1 1 - Exam General appearance: Pleasant 66-year-old female, in no distress, presently on nasal cannula. Head exam: Normocephalic, atraumatic Eye exam: PERRLA, EOMI. No icterus. ENT exam: Clear throat, moist mucous membranes, nasal mucosa is intact. Neck exam: No stridor, no cervical lymphadenopathy, no thyromegaly. Respiratory exam: Diminished breath sounds and crackles at the bases noted bilaterally. Cardiovascular Exam: Normal S1 and S2, no S3 gallop. No murmur. GI/Abdominal exam: Abdomen is soft, tenderness (Mild epigastric tenderness). No rebound, no guarding. Extremities exam: (Right posterior leg flap clean and dry and intact and healing well except for the lower portion with less than 1 cm open area with mild purulent discharge.) Neurological exam: No focal neurologic deficit Psychiatric exam: Present: normal affect, normal mood Skin exam: As noted above, draining wound on the posterior right leg. - Labs CBC & Chem 7: 04/23/17 04:30 04/23/17 04:30 Labs: Abnormal Lab Results - Last 24 Hours (Table) 04/23/17 04/23/17 04/23/17 Range/Units 03:32 04:30 04:30 WBC 23.0 H (3.8-10.6) k/uL RBC 3.39 L (3.80-5.40) m/uL Hgb 9.5 L (11.4-16.0) gm/dL Hct 31.2 L (34.0-46.0) % MCHC 30.5 L (31.0-37.0) g/dL RDW 15.9 H (11.5-15.5) % Neutrophils # 21.7 H (1.3-7.7) k/uL Lymphocytes # 0.7 L (1.0-4.8) k/uL Chloride 113 H (98-107) mmol/L Carbon Dioxide 20 L (22-30) mmol/L BUN 36 H (7-17) mg/dL POC Glucose (mg/dL) 110 H (75-99) mg/dL Calcium 8.3 L (8.4-10.2) mg/dL Phosphorus 2.2 L (2.5-4.5) mg/dL Microbiology - Last 24 Hours (Table) 04/21/17 10:11 Gram Stain - Preliminary Thigh - Right Wound Culture - Preliminary Proteus mirabilis Presumptive Staph aureus Gram Neg Bacilli 04/21/17 11:23 Urine Culture - Preliminary Urine,Catheterized Gram Neg Bacilli Gram Neg Bacilli#2 04/22/17 10:57 Blood Culture Gram Stain - Preliminary Blood 04/22/17 10:57 Blood Culture - Final Blood 04/21/17 10:11 Blood Culture Gram Stain - Preliminary Blood Blood Culture - Preliminary Proteus spec Assessment and Plan Plan: Impression: 1 acute septic shock secondary to urinary tract infection, possible pyelonephritis. Although the source of infection could also be from her right lower extremity wound culture. Blood cultures and wound cultures are both positive for Proteus mirabilis. 2 suspect mild fluid overload, no clear-cut evidence of pneumonia a son the chest x-ray, there is some basilar atelectasis. 3 acute right lower extremity cellulitis related to recent surgical flap and ongoing purulent drainage from the surgical site could also be another source of infection and sepsis. 4 history of deep vein thrombosis 5 history of rheumatoid arthritis 6 history of hypothyroidism 7 history of previous MRSA infection. 8 history of chronic indwelling Charles catheter. 9 history of fibromyalgia 10 acute kidney injury related to sepsis. 11 acute gram-negative bacteremia from different sources Recommendation: Continue present supportive care measures including antibiotics , patient is being followed by infectious disease on consultation, and she will likely require treatment with IV antibiotics for what appeared of time. So far her blood cultures are positive for Proteus mirabilis, wound cultures are positive for Proteus and staph aureus, and urine culture is positive for possibly Proteus, however the final report is not available yet, there may be to gram-negative types of bacilli in the urine. We'll continue to follow, patient is presently hemodynamically stable, could be considered for transfer to a regular medical floor. Time with Patient: Less than 30
--- NOTE | 2017-04-23 17:29 | P.PN ---
Subjective Principal diagnosis: gram-negative sepsis This is a 66-year-old female patient that is well-known to ID service as she has been treated for nonhealing stage IV pressure ulcer in the right ischium and stage III pressure ulcer in the right first toe as well as right lateral leg and was previously under the care of Dr. Medina and Dr[facility]. She has subsequently underwent a right leg flap surgery 8 weeks ago. She was just discharged from [facility] one week ago after undergoing treatment for wound infection. Drain was removed 1 week ago. She was on a wound VAC but then switched to Silvadene by the wound care nurse. We have also seen her in the past for sepsis secondary to E. coli urinary tract infection and required PICC line placement and IV antibiotics which was in the form of ceftriaxone. She now presents to [facility] emergency center with abdominal pain for 4 days on the left side then to her right lower quadrant, chills and weakness. Patient presented with hypotension and was started on the sepsis protocol and is status post IV fluids and norepinephrine which was discontinued this morning. Her initial lactic acid was 2.9 and has improved. White count at 28.3 initially and has increased to 32.8. Patient was admitted to the intensive care unit and placed on vancomycin and Levaquin. Blood cultures came back with gram-negative bacilli. Patient has had urinary tract infection with E. coli that was Levaquin resistant in the past. There was also on CAT scan left-sided diverticulosis, mild left-sided hydronephrosis and pelvic calcification, 4 mm nonobstructing calculus in the lower pole. Patient has been evaluated by Dr. Mercedes and he does not feel that the patient has a left ureteral calculus at this time and recommends further observation as long as patient's renal function continues to improve. Renal function is improving. Patient certainly feels somewhat better today. Objective - Vital Signs Vital signs: Vital Signs Temp 98.6 F 04/23/17 12:00 Pulse 83 04/23/17 15:00 Resp 23 04/23/17 15:00 BP 95/50 04/23/17 15:00 Pulse Ox 93 L 04/23/17 15:00 Intake & Output 04/22/17 04/23/17 04/23/17 18:59 06:59 18:59 Intake Total 0489.237 5384 1258.813 Output Total 1280 1190 725 Balance 426.844 -90 533.813 Weight 93.6 kg 98.1 kg Intake: IV 1450 1100 1250 Magnesium Sulfate-D5w Pmx 200 1 gm In Dextrose/Water 1 100ml.bag @ 100 mls/hr IVPB Q1H [facility] Rx#: [id number] Meropenem 1 gm In Sodium 100 Chloride 0.9% 100 ml @ 200 mls/hr IVPB Q12HR [facility] Rx#:[id number] Sodium Chloride 0.9% 1, 1250 1100 900 000 ml @ 100 mls/hr IV . Q10H [facility] Rx#:[id number] Sodium Phosphate 10 mmol 125 In Sodium Chloride 0.9% 250 ml @ 125 mls/hr IVPB ONCE ONE Rx#:[id number] Vancomycin 1,500 mg In 125 Sodium Chloride 0.9% 250 ml @ 125 mls/hr IVPB Q48H [facility] Rx#:[id number] Intake, IV Titration 6.844 0 8.813 Amount Norepinephrin 16 mg-0.9% 6.844 0 8.813 Ns Pmx 16 mg In 250 ml @ Titrate IV .Q0M [facility] Rx#: [id number] Oral 250 Output: Urine 1280 1190 725 Other: Voiding Method Indwelling Catheter Indwelling Catheter Indwelling Catheter # Bowel Movements 1 1 - Exam Gen: This is a 66-year-old female patient seen in the ICU. She appears to be comfortable at this time. Continues to have no distinct pallor but improved from yesterday HEENT: Head is atraumatic, normocephalic. Pupils equal, round. Sclerae is anicteric. NECK: Supple. No JVD. No lymphadenopathy. No thyromegaly. LUNGS: Diminished bilaterally. No wheezes or rhonchi. No intercostal retractions. HEART: Regular rate and rhythm. No murmur. ABDOMEN: Soft. Bowel sounds are present. No masses. No tenderness. EXTREMITIES: The ulcer to the right posterior calf has evidence of the 2 small open areas that have scant drainage. Therahoney dressing will be applied. NEUROLOGICAL: Patient is awake, alert and oriented x3. - Labs CBC & Chem 7: 04/23/17 04:30 04/23/17 04:30 Labs: Abnormal Lab Results - Last 24 Hours (Table) 04/23/17 04/23/17 04/23/17 Range/Units 03:32 04:30 04:30 WBC 23.0 H (3.8-10.6) k/uL RBC 3.39 L (3.80-5.40) m/uL Hgb 9.5 L (11.4-16.0) gm/dL Hct 31.2 L (34.0-46.0) % MCHC 30.5 L (31.0-37.0) g/dL RDW 15.9 H (11.5-15.5) % Neutrophils # 21.7 H (1.3-7.7) k/uL Lymphocytes # 0.7 L (1.0-4.8) k/uL Chloride 113 H (98-107) mmol/L Carbon Dioxide 20 L (22-30) mmol/L BUN 36 H (7-17) mg/dL POC Glucose (mg/dL) 110 H (75-99) mg/dL Calcium 8.3 L (8.4-10.2) mg/dL Phosphorus 2.2 L (2.5-4.5) mg/dL Microbiology - Last 24 Hours (Table) 04/21/17 10:11 Gram Stain - Preliminary Thigh - Right Wound Culture - Preliminary Proteus mirabilis Presumptive Staph aureus Gram Neg Bacilli 04/21/17 11:23 Urine Culture - Preliminary Urine,Catheterized Gram Neg Bacilli Gram Neg Bacilli#2 04/22/17 10:57 Blood Culture Gram Stain - Preliminary Blood 04/22/17 10:57 Blood Culture - Final Blood 04/21/17 10:11 Blood Culture Gram Stain - Preliminary Blood Blood Culture - Preliminary Proteus spec Laboratory Results WBC 23.0 k/uL (3.8-10.6) H 04/23/17 04:30 RBC 3.39 m/uL (3.80-5.40) L 04/23/17 04:30 Hgb 9.5 gm/dL (11.4-16.0) L 04/23/17 04:30 Hct 31.2 % (34.0-46.0) L 04/23/17 04:30 MCV 91.9 fL (80.0-100.0) 04/23/17 04:30 MCH 28.0 pg (25.0-35.0) 04/23/17 04:30 MCHC 30.5 g/dL (31.0-37.0) L 04/23/17 04:30 RDW 15.9 % (11.5-15.5) H 04/23/17 04:30 Plt Count 213 k/uL (150-450) 04/23/17 04:30 Neutrophils % 94 % 04/23/17 04:30 Lymphocytes % 3 % 04/23/17 04:30 Monocytes % 2 % 04/23/17 04:30 Eosinophils % 0 % 04/23/17 04:30 Basophils % 0 % 04/23/17 04:30 Neutrophils # 21.7 k/uL (1.3-7.7) H 04/23/17 04:30 Lymphocytes # 0.7 k/uL (1.0-4.8) L 04/23/17 04:30 Monocytes # 0.5 k/uL (0-1.0) 04/23/17 04:30 Eosinophils # 0.0 k/uL (0-0.7) 04/23/17 04:30 Basophils # 0.0 k/uL (0-0.2) 04/23/17 04:30 Manual Slide Review Performed 04/21/17 10:11 Toxic Granulation Present 04/21/17 10:11 Hypochromasia Slight 04/23/17 04:30 Poikilocytosis (manual Present 04/21/17 10:11 PT 13.5 sec (9.0-12.0) H 04/21/17 10:11 INR 1.4 (<1.2) H 04/21/17 10:11 APTT 30.6 sec (22.0-30.0) H 04/21/17 10:11 Sodium 140 mmol/L (137-145) 04/23/17 04:30 Potassium 3.7 mmol/L (3.5-5.1) 04/23/17 04:30 Chloride 113 mmol/L (98-107) H 04/23/17 04:30 Carbon Dioxide 20 mmol/L (22-30) L 04/23/17 04:30 Anion Gap 7 mmol/L 04/23/17 04:30 BUN 36 mg/dL (7-17) H 04/23/17 04:30 Creatinine 0.97 mg/dL (0.52-1.04) 04/23/17 04:30 Est GFR (MDRD) Af Amer >60 (>60 ml/min/1.73 sqM) 04/23/17 04:30 Est GFR (MDRD) Non-Af 57 (>60 ml/min/1.73 sqM) 04/23/17 04:30 Glucose 92 mg/dL (74-99) 04/23/17 04:30 POC Glucose (mg/dL) 110 mg/dL (75-99) H 04/23/17 03:32 POC Glu Stained Glass Artist ID Amari Duong 04/23/17 03:32 Lactic Ac Sepsis Rflx Y 04/21/17 11:09 Plasma Lactic Acid Darryl 1.6 mmol/L (0.7-2.0) 04/21/17 15:00 Calcium 8.3 mg/dL (8.4-10.2) L 04/23/17 04:30 Phosphorus 2.2 mg/dL (2.5-4.5) L 04/23/17 04:30 Magnesium 2.2 mg/dL (1.6-2.3) 04/23/17 04:30 Total Bilirubin 0.8 mg/dL (0.2-1.3) 04/21/17 10:11 AST 62 U/L (14-36) H 04/21/17 10:11 ALT 45 U/L (9-52) 04/21/17 10:11 Alkaline Phosphatase 138 U/L (38-126) H 04/21/17 10:11 CK-MB (CK-2) 1.9 ng/mL (0.0-2.4) 04/22/17 10:57 Troponin I 0.195 ng/mL (0.000-0.034) H* 04/22/17 10:57 Total Protein 5.7 g/dL (6.3-8.2) L 04/21/17 10:11 Albumin 2.7 g/dL (3.5-5.0) L 04/21/17 10:11 Cortisol 75 ug/dL 04/21/17 10:11 Urine Color Light Red 04/21/17 11:23 Urine Appearance Turbid (Clear) H 04/21/17 11:23 Urine pH 7.5 (5.0-8.0) 04/21/17 11:23 Ur Specific [place] 1.020 (1.001-1.035) 04/21/17 11:23 Urine Protein 2+ (Negative) H 04/21/17 11:23 Urine Glucose (UA) Negative (Negative) 04/21/17 11:23 Urine Ketones Negative (Negative) 04/21/17 11:23 Urine Blood Moderate (Negative) H 04/21/17 11:23 Urine Nitrite Negative (Negative) 04/21/17 11:23 Urine Bilirubin Negative (Negative) 04/21/17 11:23 Urine Urobilinogen <2.0 mg/dL (<2.0) 04/21/17 11:23 Ur Leukocyte Esterase Large (Negative) H 04/21/17 11:23 Urine RBC >182 /hpf (0-5) H 04/21/17 11:23 Urine WBC >182 /hpf (0-5) H 04/21/17 11:23 Urine WBC Clumps Many /hpf (None) H 04/21/17 11:23 Urine Bacteria Moderate /hpf (None) H 04/21/17 11:23 Microbiology 04/21/17 10:11 Thigh - Right Gram Stain - Preliminary 04/21/17 10:11 Thigh - Right Wound Culture - Preliminary Proteus mirabilis Presumptive Staph aureus Gram Neg Bacilli 04/21/17 11:23 Urine,Catheterized Urine Culture - Preliminary Gram Neg Bacilli Gram Neg Bacilli#2 04/22/17 10:57 Blood Blood Culture Gram Stain - Preliminary 04/22/17 10:57 Blood Blood Culture - Final 04/21/17 10:11 Blood Blood Culture Gram Stain - Preliminary 04/21/17 10:11 Blood Blood Culture - Preliminary Proteus spec 04/21/17 10:11 Blood Blood Culture - Final Assessment and Plan (1) Septic shock Narrative/Plan: This pleasant woman presents to Hospital of evidence of gram-negative sepsis. She's had the flap and graft performed to the right lower extremity and apparently is doing quite well. Still having some drainage from the sites were drain tubes were in place. The leg is not very tender. There is only minimal erythema. Patient remains quite ill but is hemodynamically more stable. Not requiring vasopressor therapy. Did well fluid resuscitation. Will be followed closely by urology to ensure there is no need for intervention. Await final cultures to help determine de-escalation of antimicrobial therapy if possible. Currently receiving meropenem given her history and her ALLERGIES. She has a profound leukocytosis in the bases of her gram-negative sepsis. Also has acute renal failure on the basis of her current sepsis. She said to show some improvement today. Her leukocytosis is starting to improve. Renal failure is improving. Current antibiotics will continue until further cultures are available. Repeat blood cultures will be requested in the morning. Status: Acute
[2017-04-23] MEDS: VANCOMYCIN 1,500 MG in SODIUM CHLORIDE 0.9% 250 ML IVPB SCH (22:14)
[2017-04-24] MEDS: ACETAMINOPHEN TAB 325 MG TAB PO PRN ×2 (05:52→18:38)
--- NOTE | 2017-04-24 08:35 | XR ---
EXAMINATION TYPE: XR chest 1V portable DATE OF EXAM: 04/24/2017 HISTORY: shortness of breath. REFERENCE: Previous study dated 04/23/2017. FINDINGS: There is a right basilic PICC line in place. Its tip is at the cavoatrial junction. The heart is enlarged. There has developed vascular congestion and pulmonary edema. Both CP angles ar e blunted and I could not exclude small effusions. IMPRESSION: INTERVAL DEVELOPMENT OF CHANGES OF MILD HEART FAILURE.
[2017-04-24 08:43] LABS: Anion Gap 6 mmol/L; Blood Urea Nitrogen 29 mg/dL (7-17); Calcium 7.8 mg/dL (8.4-10.2); Carbon Dioxide 17 mmol/L (22-30); Chloride 113 mmol/L (98-107); Glucose 71 mg/dL (74-99); Non-African American GFR(MDRD) >60 (>60 ml/min/1.73 sqM); Phosphorus 1.8 mg/dL (2.5-4.5); Sodium 136 mmol/L (137-145)
[2017-04-24] MEDS: MEROPENEM 1 GM in SODIUM CHLORIDE 0.9% 100 ML IVPB SCH ×2 (08:43→17:15)
[2017-04-24] MEDS: PANTOPRAZOLE 40 MG/10 ML VIAL IV SCH (08:43)
[2017-04-24] MEDS: ENOXAPARIN 30 MG/0.3 ML SYRINGE SQ SCH (08:44)
[2017-04-24] MEDS: LACTULOSE 20 GM/30 ML CUP PO SCH ×3 (08:45→20:05)
[2017-04-24] MEDS: FUROSEMIDE 20 MG TAB PO SCH (11:11)
--- NOTE | 2017-04-24 12:50 | P.PN ---
Subjective Principal diagnosis: Sepsis secondary to urinary tract infection and wound infection This is a 66-year-old female with history of multiple medical problems including right leg flap surgery done about 8 weeks ago, and she continues to have some purulent drainage from the site of the surgery in the back of her thigh. Patient is also known to have history of rheumatoid arthritis, hypothyroidism, deep vein thrombosis, maintained on Xarelto, history of fibromyalgia, and history of decubitus ulcers. Patient had previous MRSA infection. Patient was brought into the ER mostly with multiple complaints including not feeling well, weakness, low-grade fever, and this has been going on for the last couple of days. Patient was also complaining of left flank pain and left lower quadrant pain, also noted to have thick discolored urine, bloody at times, and she does have a chronic indwelling Charles catheter. During her evaluation in the ER, patient was noted to be hypotensive she received 2 L of crystalloids, and she remained hypotensive hence at the right subclavian central line was placed, and patient was started on norepinephrine. She is presently on 20 mics of norepinephrine. Blood pressure seems to be stabilizing. She is also receiving her third liter of 0.9 normal saline. Improved significantly since admission but remains critically ill. Patient was also noted to have significant leukocytosis with WBC count of 28.3 elevated lactic acid of 2.9, repeat was 1.6 after fluid boluses. She was also noted to have significant pyuria and bacteriuria noted in her urinalysis. CT of abdomen and pelvis showed left sided diverticulosis, mild the left sided hydronephrosis with mid pelvic level calcifications, renal edema was noted, underlying infection is not excluded. There was also a 4 mm nonobstructing calculus, right horseshoe component lower pole. The patient herself is not the greatest historian, she had multiple vague complaints, but she had no clue how sick she was upon presentation. Patient was started on antibiotics in the form of Levaquin and vancomycin, (patient is ALLERGIC to penicillin). Patient was given fluid boluses she is presently on her third liter of crystalloid and she was placed on norepinephrine presently being titrated to a mean arterial pressure of 65 or higher. Chest x-ray is beginning to show mild central vascular congestion, and chronic parenchymal changes with basilar atelectasis, doubt infiltrates. Patient denied any headaches no blurred vision no dizziness. Denied any shortness of breath cough or wheezing. No nausea no vomiting, she did have abdominal pain mostly in the left lower quadrant, one episode of diarrhea yesterday, but no melena no hematemesis. Patient had a chronic indwelling Charles catheter. Denies any specific urinary symptoms. No dysuria, no frequency, no urgency. Again she does have left flank pain. Patient is known to have histories of severe rheumatoid arthritis used to see Dr. Hernandez and she was treated in the past with [facility]. Patient was reevaluated today on 04/22/2017, doing much better compared to yesterday, hemodynamically stable, off norepinephrine. IV fluid is at 100 mL per hour. Patient has excellent urine output, her cultures of the blood came back negative for gram-negative bacilli, final identification is pending. In the meantime the patient seems to be on appropriate antibiotics. She is on Merrem and on vancomycin. I discontinued her hydrocortisone since the patient was not on maintenance dose of prednisone and the last one year. Patient is relatively asymptomatic, feeling much better today compared to how she felt yesterday upon presentation. Continues to have leukocytosis with WBC count of 32.8. Basic metabolic profile is normal. Renal profile showed BUN of 32 creatinine of 1.3 significantly improved compared to yesterday's labs. Patient denies any abdominal pain, no shortness of breath, her weakness seems to be even significantly improved. Patient was reevaluated today on 04/23/2017, continues to do well, however last night required the placement on norepinephrine again because of low blood pressure, however this was discontinued at 7 AM this morning. Overall the patient is doing better, relatively asymptomatic. WBC count is coming down to 23.0 from 32.8 on admission hemoglobin is 9.5 electrolytes and renal profile are normal. Significantly improved. Chest x-ray is showing left basilar atelectasis, no evidence of pneumonia at this time. Patient has no active pulmonary symptoms. Her cultures from the urine blood 1 were all reviewed, and her antibiotics are being addressed by Dr. Joya on the case. Patient was seen again today 04/24/2017 in follow-up on the regular medical floor. She is awake and alert in no acute distress. She has been hemodynamically stable. She remains on vancomycin and meropenem per ID services. She is currently afebrile. Maintaining good O2 saturations in the 90s on room air. Today's chest x-ray shows some mild fluid volume overload. Has been initiated on Lasix. Objective - Vital Signs Vital signs: Vital Signs Temp 98.0 F 04/24/17 07:00 Pulse 85 04/24/17 07:00 Resp 18 04/24/17 08:00 BP 113/50 04/24/17 07:00 Pulse Ox 94 L 04/24/17 07:00 Intake & Output 04/23/17 04/24/17 04/24/17 18:59 06:59 18:59 Intake Total 1258.813 250 300 Output Total 725 1800 Balance 533.813 -1550 300 Intake: IV 1250 250 Meropenem 1 gm In Sodium 100 100 Chloride 0.9% 100 ml @ 200 mls/hr IVPB Q12HR [facility] Rx#:[id number] Sodium Chloride 0.9% 1, 900 150 000 ml @ 100 mls/hr IV . Q10H [facility] Rx#:[id number] Sodium Phosphate 10 mmol 125 In Sodium Chloride 0.9% 250 ml @ 125 mls/hr IVPB ONCE ONE Rx#:[id number] Vancomycin 1,500 mg In 125 Sodium Chloride 0.9% 250 ml @ 125 mls/hr IVPB Q48H [facility] Rx#:[id number] Intake, IV Titration 8.813 Amount Norepinephrin 16 mg-0.9% 8.813 Ns Pmx 16 mg In 250 ml @ Titrate IV .Q0M [facility] Rx#: [id number] Oral 300 Output: Urine 725 1800 Other: Voiding Method Indwelling Catheter Indwelling Catheter Indwelling Catheter # Bowel Movements 1 1 - Exam General appearance: Pleasant 66-year-old female, in no distress, presently on nasal cannula. Head exam: Normocephalic, atraumatic Eye exam: PERRLA, EOMI. No icterus. ENT exam: Clear throat, moist mucous membranes, nasal mucosa is intact. Neck exam: No stridor, no cervical lymphadenopathy, no thyromegaly. Respiratory exam: Diminished breath sounds and crackles at the bases noted bilaterally. Cardiovascular Exam: Normal S1 and S2, no S3 gallop. No murmur. GI/Abdominal exam: Abdomen is soft, tenderness Mild epigastric tenderness. No rebound, no guarding. Extremities exam: (Right posterior leg flap clean and dry and intact and healing well except for the lower portion with less than 1 cm open area with mild purulent discharge. Neurological exam: No focal neurologic deficit Psychiatric exam: Present: normal affect, normal mood Skin exam: As noted above, draining wound on the posterior right leg. - Labs CBC & Chem 7: 04/23/17 04:30 04/24/17 07:27 Labs: Abnormal Lab Results - Last 24 Hours (Table) 04/24/17 Range/Units 07:27 Sodium 136 L (137-145) mmol/L Chloride 113 H (98-107) mmol/L Carbon Dioxide 17 L (22-30) mmol/L BUN 29 H (7-17) mg/dL Glucose 71 L (74-99) mg/dL Calcium 7.8 L (8.4-10.2) mg/dL Phosphorus 1.8 L (2.5-4.5) mg/dL Microbiology - Last 24 Hours (Table) 04/21/17 11:23 Urine Culture - Preliminary Urine,Catheterized Proteus mirabilis Pseudomonas aeruginosa 04/22/17 10:57 Blood Culture Gram Stain - Preliminary Blood Blood Culture - Preliminary Proteus spec 04/21/17 10:11 Blood Culture Gram Stain - Final Blood Blood Culture - Final Proteus mirabilis 04/21/17 10:11 Gram Stain - Preliminary Thigh - Right Wound Culture - Preliminary Proteus mirabilis Presumptive Staph aureus Gram Neg Bacilli Assessment and Plan Plan: Impression: 1 acute septic shock secondary to urinary tract infection, wound infection and bacteremia. Blood cultures positive for Proteus mirabilis, wound culture positive for Proteus mirabilis, presumptive staph aureus, urine culture positive for Proteus mirabilis and Pseudomonas aeruginosa.. 2 suspect mild fluid overload, no clear-cut evidence of pneumonia on the chest x -ray, there is some basilar atelectasis. 3 acute right lower extremity cellulitis related to recent surgical flap and ongoing purulent drainage from the surgical site could also be another source of infection and sepsis. 4 history of deep vein thrombosis 5 history of rheumatoid arthritis 6 history of hypothyroidism 7 history of previous MRSA infection. 8 history of chronic indwelling Charles catheter. 9 history of fibromyalgia 10 acute kidney injury related to sepsis. 11 acute gram-negative bacteremia from different sources Plan: The patient was seen and evaluated by Dr. Metz. Her chest x-ray and labs were reviewed. She is maintained on antibiotics per infectious disease in the form of Myosin and meropenem. She is on oral Lasix. She remains in a negative balance. We'll continue to follow and make further recommendations based on her clinical status. I have completed a history and physical examination on the above patient. The lungs continue with crackles in the bilateral posterior bases. Diminished. I agree with the note as dictated by my nurse practitioner, Mindy Laws. We have reviewed and discussed the assessment and plan of care.
[2017-04-24] MEDS ORDERED: VANCOMYCIN TROUGH DUE 1 EACH MISC MISCELLANE ONE (13:00)
[2017-04-24] MEDS ORDERED: FUROSEMIDE 10 MG/ML 4 ML VIAL IV STA (13:18)
[2017-04-24] MEDS: VANCOMYCIN 1,500 MG in SODIUM CHLORIDE 0.9% 250 ML IVPB SCH (13:57)
--- NOTE | 2017-04-24 14:05 | P.PN ---
Subjective 66 years old female patient of Dr. Moyer with past medical history of right leg flap surgery done about 8 weeks ago, history of rheumatoid arthritis, hypothyroidism, DVT 1 year ago on 02, history of fibromyalgia, history of decubitus ulcer, previous MRSA infection presents today with worsening abdominal pain for the past 4 days that started on the left side and moved to her right low quadrant, associated with chills and feeling of warmth, generalized weakness. Patient denies any history of chest pain, shortness of breath, hematemesis, melena or vomiting. Patient was just discharged from [facility] one week ago after undergoing treatment for wound infection around the right leg flap surgery. Patient stated she was on wound VAC for epidural time before switching to silver sulfadiazine by the wound care nurse. Drain was removed one week ago. In the ED patient received 2 L of fluid but remained hypotensive and hence admitting to the ICU. Patient was started on norepinephrine. Patient lactic acid on admission was 2.9 which improved to 1.6 after fluid resuscitation, WBC 28.3 with urinalysis suggestive of infection patient was covered with vancomycin and Levaquin. Blood cultures and urine cultures were sent. Chest x- ray done in the ED suggested some mild intravascular congestion with though CT abdomen and pelvis showed left-sided diverticulosis, with mild left-sided hydronephrosis and pelvic calcification, a 4 mm nonobstructing calculus was also seen in the lower pole. 04/22: Patient remains in the intensive care unit. She is followed by Dr. Early for intensive care management. Patient is status post fluid bolus and is currently on IV antibiotics in form of Levaquin and vancomycin. Ultrasound bilateral lower extremities negative for DVT. Repeat chest x-ray showed bilateral infiltrate greater on the left appears stable. Cannot exclude mild venous congestion. Patient has been seen by Dr. Mercedes and he does not feel that the patient has a left ureteral calculus at this time and recommends further observation as long as patient's renal function continues to improve. Patient's white count is up to 32.8. BUN is 32 and creatinine 1.3 which is improved from yesterday of 34 and 1.9. Patient has a positive blood culture gram-negative bacilli. Wound culture (right thigh) and urine culture in progress. Patient is currently off norepinephrine. Repeat blood cultures will be requested and ID consult placed with Dr. Joya and he has placed the patient on meropenem versus Levaquin. Patient's Charles catheter has been changed on this admission. 04/23: Patient remains in intensive care unit has been cleared for transfer to monitored floor with telemetry by Dr. Early. Patient was back on norepinephrine last night but this was discontinued before the day shift today. Patient feels like she needs to have a bowel movement and having some discomfort in her abdomen. Lactulose has been added. Initial blood culture is showing Proteus species and otherwise cultures are in progress. Repeat blood cultures obtained on April 22 are also positive and repeat blood culture will be ordered for the morning. Patient's home [place] dose will be resumed as she is complaining of generalized arthritic pain 04/24: Patient was evaluated today. She is noted to be resting comfortably in bed, in no acute distress. She continues on her IV vancomycin and meropenem, and continues to be followed by infectious disease. Blood cultures positive for Proteus mirabilis, wound cultures also positive for Proteus mirabilis, urine cultures positive for Proteus mirabilis and Pseudomonas aeruginosa. She had a repeat chest x-ray that did show some mild fluid overload, IV fluids were discontinued and IV Lasix started. Incentive spirometer was also ordered. Objective - Vital Signs Vital signs: Vital Signs Temp 98.0 F 04/24/17 07:00 Pulse 85 04/24/17 07:00 Resp 18 04/24/17 08:00 BP 113/50 04/24/17 07:00 Pulse Ox 94 L 04/24/17 07:00 Intake & Output 04/23/17 04/24/17 04/24/17 18:59 06:59 18:59 Intake Total 1258.813 250 300 Output Total 725 1800 Balance 533.813 -1550 300 Intake: IV 1250 250 Meropenem 1 gm In Sodium 100 100 Chloride 0.9% 100 ml @ 200 mls/hr IVPB Q12HR [facility] Rx#:[id number] Sodium Chloride 0.9% 1, 900 150 000 ml @ 100 mls/hr IV . Q10H [facility] Rx#:[id number] Sodium Phosphate 10 mmol 125 In Sodium Chloride 0.9% 250 ml @ 125 mls/hr IVPB ONCE ONE Rx#:[id number] Vancomycin 1,500 mg In 125 Sodium Chloride 0.9% 250 ml @ 125 mls/hr IVPB Q48H [facility] Rx#:[id number] Intake, IV Titration 8.813 Amount Norepinephrin 16 mg-0.9% 8.813 Ns Pmx 16 mg In 250 ml @ Titrate IV .Q0M [facility] Rx#: [id number] Oral 300 Output: Urine 725 1800 Other: Voiding Method Indwelling Catheter Indwelling Catheter Indwelling Catheter # Bowel Movements 1 1 - Exam - Exam General appearance: average body habitus, cooperative, mild distress - EENT Eyes: EOMI, PERRLA, no photophobia, no scleral icterus ENT: normal oropharynx Ears: bilateral: normal - Neck Neck: no lymphadenopathy, no normal ROM Carotids: bilateral: upstroke normal - Respiratory Respiratory: bilateral: CTA, diminished (at bases ), negative: dullness, rales, rhonchi, wheezing - Cardiovascular Rhythm: regular Heart sounds: normal: S1, S2 Abnormal Heart Sounds: no systolic murmur, no diastolic murmur ankle Peripheral Edema: bilateral: None - Gastrointestinal General gastrointestinal: normal bowel sounds, soft, tenderness Localized gastrointestinal: tender: LUQ, LLQ - Integumentary Integumentary: cellulitis (Patient has skin tear at the coccyx, and a draining 1 cm size lesion at the dorsal surfaces of the right eye at the site of patient' s previous flap surgery) - Neurologic Neurologic: CNII-XII intact, focal deficits (no focal deficit ) - Musculoskeletal Musculoskeletal: gait normal, generalized weakness - Psychiatric Psychiatric: A&O x's 3, appropriate affect - Labs CBC & Chem 7: 04/23/17 04:30 04/24/17 07:27 Labs: Abnormal Lab Results - Last 24 Hours (Table) 04/24/17 Range/Units 07:27 Sodium 136 L (137-145) mmol/L Chloride 113 H (98-107) mmol/L Carbon Dioxide 17 L (22-30) mmol/L BUN 29 H (7-17) mg/dL Glucose 71 L (74-99) mg/dL Calcium 7.8 L (8.4-10.2) mg/dL Phosphorus 1.8 L (2.5-4.5) mg/dL Microbiology - Last 24 Hours (Table) 04/21/17 10:11 Gram Stain - Final Thigh - Right Wound Culture - Final Proteus mirabilis Staphylococcus aureus Pseudomonas aeruginosa 04/21/17 11:23 Urine Culture - Preliminary Urine,Catheterized Proteus mirabilis Pseudomonas aeruginosa 04/22/17 10:57 Blood Culture Gram Stain - Preliminary Blood Blood Culture - Preliminary Proteus spec 04/21/17 10:11 Blood Culture Gram Stain - Final Blood Blood Culture - Final Proteus mirabilis Assessment and Plan Plan: #1 septic shock secondary to Charles catheter associated urinary tract infection and pyelonephritis with gram-negative bacteremia, septicemia. Patient also has a wound on her right dorsal part of the thigh at the site of incision of her recent surgerical flap around 1 cm with the overlying drainage which could also be a possibility source of infection - Patient adequately fluid resuscitated with 30 mL/kg - Lactic acid improved to 1.6 after fluid resuscitation - Continue vancomycin and meropenem -Blood culture Culture urine culture sent - Patient has history of rheumatoid arthritis may have underlying adrenal insufficiency, with stress doses of hydrocortisone 50 mg every 8 -Consult with Dr. Toan ivey -Repeat blood cultures #2 history of DVT- on xarelto for 1 year, anticoagulant held, patient placed on Lovenox 30 subcu daily as prophylaxis, venous Doppler bilateral lower extremities negative for DVT. #3 history of rheumatoid arthritis- stable #4 history of hypothyroidism continue Synthyroid #5 history of MRSA infection- wound culture sent from the site of the surgery patient covered with vancomycin #6 chronic indwelling Charles catheter which has been changed on this admission,- poor urine output, monitor TOMER's while in the ICU. Urology consulted for an hydronephrosis seen on the left side. #7 acute kidney injury likely secondary to sepsis- BUN and creatinine improving will continue to monitor #8 suspected mild fluid overload- IV fluids discontinued, Lasix 20 mg daily ordered and incentive spirometer at bedside #8 DVT prophylaxis with Lovenox #9 GI prophylaxis - Pepcid 20 mg twice a day #11 CODE STATUS full code The above impression and plan of care have been discussed and directed by signing physician. Zoya Ivey nurse practitioner acting as scribe for signing physician.
[2017-04-25] MEDS: MEROPENEM 1 GM in SODIUM CHLORIDE 0.9% 100 ML IVPB SCH ×3 (01:42→15:03)
[2017-04-25] MEDS: ACETAMINOPHEN TAB 325 MG TAB PO PRN ×2 (01:47→19:38)
[2017-04-25] MEDS: VANCOMYCIN 1,500 MG in SODIUM CHLORIDE 0.9% 250 ML IVPB SCH ×2 (06:30→21:04)
[2017-04-25 07:29] LABS: Anion Gap 6 mmol/L; Calcium 8.1 mg/dL (8.4-10.2); Carbon Dioxide 20 mmol/L (22-30); Chloride 110 mmol/L (98-107); Glucose 75 mg/dL (74-99); Non-African American GFR(MDRD) >60 (>60 ml/min/1.73 sqM); Sodium 136 mmol/L (137-145)
[2017-04-25 07:35] LABS: Blood Urea Nitrogen 24 mg/dL (7-17); Potassium 4.1 mmol/L (3.5-5.1)
[2017-04-25] MEDS: FUROSEMIDE 20 MG TAB PO SCH (07:46)
[2017-04-25] MEDS: PANTOPRAZOLE 40 MG TABLET PO SCH (07:46)
[2017-04-25] MEDS: ENOXAPARIN 40 MG/0.4 ML SYRINGE SQ SCH (07:46)
[2017-04-25] MEDS: LACTULOSE 20 GM/30 ML CUP PO SCH ×2 (07:46→20:08)
[2017-04-25] MEDS ORDERED: MAG HYDROX/AL HYDROX/SIMETH 30 ML, HYOSCYAMINE ELIXIR 10 ML, CIMETIDINE HCL 300 MG, LID... PO STA ×4 (12:05)
[2017-04-25] MEDS: ONDANSETRON 4 MG/2 ML VIAL IVP PRN ×2 (12:26→18:09)
--- NOTE | 2017-04-25 12:35 | P.PN ---
Subjective 66 years old female patient of Dr. Moyer with past medical history of right leg flap surgery done about 8 weeks ago, history of rheumatoid arthritis, hypothyroidism, DVT 1 year ago on 02, history of fibromyalgia, history of decubitus ulcer, previous MRSA infection presents today with worsening abdominal pain for the past 4 days that started on the left side and moved to her right low quadrant, associated with chills and feeling of warmth, generalized weakness. Patient denies any history of chest pain, shortness of breath, hematemesis, melena or vomiting. Patient was just discharged from [facility] one week ago after undergoing treatment for wound infection around the right leg flap surgery. Patient stated she was on wound VAC for epidural time before switching to silver sulfadiazine by the wound care nurse. Drain was removed one week ago. In the ED patient received 2 L of fluid but remained hypotensive and hence admitting to the ICU. Patient was started on norepinephrine. Patient lactic acid on admission was 2.9 which improved to 1.6 after fluid resuscitation, WBC 28.3 with urinalysis suggestive of infection patient was covered with vancomycin and Levaquin. Blood cultures and urine cultures were sent. Chest x- ray done in the ED suggested some mild intravascular congestion with though CT abdomen and pelvis showed left-sided diverticulosis, with mild left-sided hydronephrosis and pelvic calcification, a 4 mm nonobstructing calculus was also seen in the lower pole. 04/22: Patient remains in the intensive care unit. She is followed by Dr. Early for intensive care management. Patient is status post fluid bolus and is currently on IV antibiotics in form of Levaquin and vancomycin. Ultrasound bilateral lower extremities negative for DVT. Repeat chest x-ray showed bilateral infiltrate greater on the left appears stable. Cannot exclude mild venous congestion. Patient has been seen by Dr. Mercedes and he does not feel that the patient has a left ureteral calculus at this time and recommends further observation as long as patient's renal function continues to improve. Patient's white count is up to 32.8. BUN is 32 and creatinine 1.3 which is improved from yesterday of 34 and 1.9. Patient has a positive blood culture gram-negative bacilli. Wound culture (right thigh) and urine culture in progress. Patient is currently off norepinephrine. Repeat blood cultures will be requested and ID consult placed with Dr. Joya and he has placed the patient on meropenem versus Levaquin. Patient's Charles catheter has been changed on this admission. 04/23: Patient remains in intensive care unit has been cleared for transfer to monitored floor with telemetry by Dr. Early. Patient was back on norepinephrine last night but this was discontinued before the day shift today. Patient feels like she needs to have a bowel movement and having some discomfort in her abdomen. Lactulose has been added. Initial blood culture is showing Proteus species and otherwise cultures are in progress. Repeat blood cultures obtained on April 22 are also positive and repeat blood culture will be ordered for the morning. Patient's home [place] dose will be resumed as she is complaining of generalized arthritic pain 04/24: Patient was evaluated today. She is noted to be resting comfortably in bed, in no acute distress. She continues on her IV vancomycin and meropenem, and continues to be followed by infectious disease. Blood cultures positive for Proteus mirabilis, wound cultures also positive for Proteus mirabilis, urine cultures positive for Proteus mirabilis and Pseudomonas aeruginosa. She had a repeat chest x-ray that did show some mild fluid overload, IV fluids were discontinued and IV Lasix started. Incentive spirometer was also ordered. 04/25: Patient was evaluated today, she is noted to be resting comfortably in bed , in no acute distress. She does complain of some nausea, IV Zofran and GI cocktail were ordered. Patient noted to have some fluid overload on her repeat chest x-ray yesterday, IV Lasix were given, echocardiogram ordered, and is pending. Patient will most likely need subacute rehab upon discharge. Discharge may be complicated due to the fact that she recently had a short stay at a [facility] and insurance may not approve another stay. manager business process was consulted. Objective - Vital Signs Vital signs: Vital Signs Temp 99.3 F 04/25/17 07:00 Pulse 79 04/25/17 07:00 Resp 20 04/25/17 07:00 BP 121/65 04/25/17 07:00 Pulse Ox 95 04/25/17 07:00 Intake & Output 04/24/17 04/25/17 04/25/17 18:59 06:59 18:59 Intake Total 600 Output Total 4300 3000 Balance -3700 -3000 Intake: Oral 600 Output: Urine 4300 3000 Other: Voiding Method Indwelling Catheter Indwelling Catheter Indwelling Catheter # Bowel Movements 1 2 - Exam - Exam General appearance: average body habitus, cooperative, mild distress - EENT Eyes: EOMI, PERRLA, no photophobia, no scleral icterus ENT: normal oropharynx Ears: bilateral: normal - Neck Neck: no lymphadenopathy, no normal ROM Carotids: bilateral: upstroke normal - Respiratory Respiratory: bilateral: CTA, diminished (at bases ), negative: dullness, rales, rhonchi, wheezing - Cardiovascular Rhythm: regular Heart sounds: normal: S1, S2 Abnormal Heart Sounds: no systolic murmur, no diastolic murmur ankle Peripheral Edema: bilateral: None - Gastrointestinal General gastrointestinal: normal bowel sounds, soft, tenderness Localized gastrointestinal: tender: LUQ, LLQ - Integumentary Integumentary: cellulitis (Patient has skin tear at the coccyx, and a draining 1 cm size lesion at the dorsal surfaces of the right eye at the site of patient' s previous flap surgery) - Neurologic Neurologic: CNII-XII intact, focal deficits (no focal deficit ) - Musculoskeletal Musculoskeletal: gait normal, generalized weakness - Psychiatric Psychiatric: A&O x's 3, appropriate affect - Labs CBC & Chem 7: 04/23/17 04:30 04/25/17 07:06 Labs: Abnormal Lab Results - Last 24 Hours (Table) 04/25/17 Range/Units 07:06 Sodium 136 L (137-145) mmol/L Chloride 110 H (98-107) mmol/L Carbon Dioxide 20 L (22-30) mmol/L BUN 24 H (7-17) mg/dL Calcium 8.1 L (8.4-10.2) mg/dL Microbiology - Last 24 Hours (Table) 04/24/17 08:01 Blood Culture - Preliminary Blood No Growth after 24 hours 04/24/17 07:27 Blood Culture - Preliminary Blood No Growth after 24 hours 04/22/17 10:57 Blood Culture Gram Stain - Final Blood Blood Culture - Final Proteus mirabilis 04/21/17 11:23 Urine Culture - Final Urine,Catheterized Proteus mirabilis Pseudomonas aeruginosa 04/21/17 10:11 Gram Stain - Final Thigh - Right Wound Culture - Final Proteus mirabilis Staphylococcus aureus Pseudomonas aeruginosa Assessment and Plan Plan: #1 septic shock secondary to Charles catheter associated urinary tract infection and pyelonephritis with gram-negative bacteremia, septicemia. Patient also has a wound on her right dorsal part of the thigh at the site of incision of her recent surgerical flap around 1 cm with the overlying drainage which could also be a possibility source of infection - Patient adequately fluid resuscitated with 30 mL/kg - Lactic acid improved to 1.6 after fluid resuscitation - Continue vancomycin and meropenem -Blood culture Culture urine culture sent - Patient has history of rheumatoid arthritis may have underlying adrenal insufficiency, with stress doses of hydrocortisone 50 mg every 8 -Consult with Dr. Joya appreciated -Repeat blood cultures #2 history of DVT- on xarelto for 1 year, anticoagulant held, patient placed on Lovenox 30 subcu daily as prophylaxis, venous Doppler bilateral lower extremities negative for DVT. #3 history of rheumatoid arthritis- stable #4 history of hypothyroidism continue Synthyroid #5 history of MRSA infection- wound culture sent from the site of the surgery patient covered with vancomycin #6 chronic indwelling Charles catheter which has been changed on this admission,- poor urine output, monitor TOMER's while in the ICU. Urology consulted for an hydronephrosis seen on the left side. #7 acute kidney injury likely secondary to sepsis- BUN and creatinine improving will continue to monitor #8 suspected mild fluid overload- IV fluids discontinued, Lasix 20 mg daily ordered and incentive spirometer at bedside, echocardiogram ordered and is pending #8 DVT prophylaxis with Lovenox #9 GI prophylaxis - Pepcid 20 mg twice a day #11 CODE STATUS full code The above impression and plan of care have been discussed and directed by signing physician. Zoya Ivey nurse practitioner acting as scribe for signing physician.
--- NOTE | 2017-04-25 12:45 | P.PN ---
Subjective Principal diagnosis: Acute septic shock from acute urinary tract infection This is a 66-year-old female with history of multiple medical problems including right leg flap surgery done about 8 weeks ago, and she continues to have some purulent drainage from the site of the surgery in the back of her thigh. Patient is also known to have history of rheumatoid arthritis, hypothyroidism, deep vein thrombosis, maintained on Xarelto, history of fibromyalgia, and history of decubitus ulcers. Patient had previous MRSA infection. Patient was brought into the ER mostly with multiple complaints including not feeling well, weakness, low-grade fever, and this has been going on for the last couple of days. Patient was also complaining of left flank pain and left lower quadrant pain, also noted to have thick discolored urine, bloody at times, and she does have a chronic indwelling Charles catheter. During her evaluation in the ER, patient was noted to be hypotensive she received 2 L of crystalloids, and she remained hypotensive hence at the right subclavian central line was placed, and patient was started on norepinephrine. She is presently on 20 mics of norepinephrine. Blood pressure seems to be stabilizing. She is also receiving her third liter of 0.9 normal saline. Improved significantly since admission but remains critically ill. Patient was also noted to have significant leukocytosis with WBC count of 28.3 elevated lactic acid of 2.9, repeat was 1.6 after fluid boluses. She was also noted to have significant pyuria and bacteriuria noted in her urinalysis. CT of abdomen and pelvis showed left sided diverticulosis, mild the left sided hydronephrosis with mid pelvic level calcifications, renal edema was noted, underlying infection is not excluded. There was also a 4 mm nonobstructing calculus, right horseshoe component lower pole. The patient herself is not the greatest historian, she had multiple vague complaints, but she had no clue how sick she was upon presentation. Patient was started on antibiotics in the form of Levaquin and vancomycin, (patient is ALLERGIC to penicillin). Patient was given fluid boluses she is presently on her third liter of crystalloid and she was placed on norepinephrine presently being titrated to a mean arterial pressure of 65 or higher. Chest x-ray is beginning to show mild central vascular congestion, and chronic parenchymal changes with basilar atelectasis, doubt infiltrates. Patient denied any headaches no blurred vision no dizziness. Denied any shortness of breath cough or wheezing. No nausea no vomiting, she did have abdominal pain mostly in the left lower quadrant, one episode of diarrhea yesterday, but no melena no hematemesis. Patient had a chronic indwelling Charles catheter. Denies any specific urinary symptoms. No dysuria, no frequency, no urgency. Again she does have left flank pain. Patient is known to have histories of severe rheumatoid arthritis used to see Dr. Hernandez and she was treated in the past with Arava. Patient was reevaluated today on 04/22/2017, doing much better compared to yesterday, hemodynamically stable, off norepinephrine. IV fluid is at 100 mL per hour. Patient has excellent urine output, her cultures of the blood came back negative for gram-negative bacilli, final identification is pending. In the meantime the patient seems to be on appropriate antibiotics. She is on Merrem and on vancomycin. I discontinued her hydrocortisone since the patient was not on maintenance dose of prednisone and the last one year. Patient is relatively asymptomatic, feeling much better today compared to how she felt yesterday upon presentation. Continues to have leukocytosis with WBC count of 32.8. Basic metabolic profile is normal. Renal profile showed BUN of 32 creatinine of 1.3 significantly improved compared to yesterday's labs. Patient denies any abdominal pain, no shortness of breath, her weakness seems to be even significantly improved. Patient was reevaluated today on 04/23/2017, continues to do well, however last night required the placement on norepinephrine again because of low blood pressure, however this was discontinued at 7 AM this morning. Overall the patient is doing better, relatively asymptomatic. WBC count is coming down to 23.0 from 32.8 on admission hemoglobin is 9.5 electrolytes and renal profile are normal. Significantly improved. Chest x-ray is showing left basilar atelectasis, no evidence of pneumonia at this time. Patient has no active pulmonary symptoms. Her cultures from the urine blood 1 were all reviewed, and her antibiotics are being addressed by Dr. Joya on the case. Patient was seen again today 04/24/2017 in follow-up on the regular medical floor. She is awake and alert in no acute distress. She has been hemodynamically stable. She remains on vancomycin and meropenem per ID services. She is currently afebrile. Maintaining good O2 saturations in the 90s on room air. Today's chest x-ray shows some mild fluid volume overload. Has been initiated on Lasix. Patient was reevaluated today on 04/25/2017, she has no active pulmonary symptoms , no cough no wheezing no shortness of breath, remains on antibiotics for her septic shock presentation as noted above. Patient remains on room air, and maintaining adequate saturations. Yesterday she was placed on Lasix. And seems to be working well for the patient. Basic metabolic profile today is normal. Objective - Vital Signs Vital signs: Vital Signs Temp 99.3 F 04/25/17 07:00 Pulse 79 04/25/17 07:00 Resp 20 04/25/17 07:00 BP 121/65 04/25/17 07:00 Pulse Ox 95 04/25/17 07:00 Intake & Output 04/24/17 04/25/17 04/25/17 18:59 06:59 18:59 Intake Total 600 Output Total 4300 3000 Balance -3700 -3000 Intake: Oral 600 Output: Urine 4300 3000 Other: Voiding Method Indwelling Catheter Indwelling Catheter Indwelling Catheter # Bowel Movements 1 2 - Exam General appearance: Pleasant 66-year-old female, in no distress, presently on nasal cannula. Head exam: Normocephalic, atraumatic Eye exam: PERRLA, EOMI. No icterus. ENT exam: Clear throat, moist mucous membranes, nasal mucosa is intact. Neck exam: No stridor, no cervical lymphadenopathy, no thyromegaly. Respiratory exam: Diminished breath sounds and crackles at the bases noted bilaterally. Cardiovascular Exam: Normal S1 and S2, no S3 gallop. No murmur. GI/Abdominal exam: Abdomen is soft, tenderness Mild epigastric tenderness. No rebound, no guarding. Extremities exam: (Right posterior leg flap clean and dry and intact and healing well except for the lower portion with less than 1 cm open area with mild purulent discharge. Neurological exam: No focal neurologic deficit Psychiatric exam: Present: normal affect, normal mood Skin exam: As noted above, draining wound on the posterior right leg. - Labs CBC & Chem 7: 04/23/17 04:30 04/25/17 07:06 Labs: Abnormal Lab Results - Last 24 Hours (Table) 04/25/17 Range/Units 07:06 Sodium 136 L (137-145) mmol/L Chloride 110 H (98-107) mmol/L Carbon Dioxide 20 L (22-30) mmol/L BUN 24 H (7-17) mg/dL Calcium 8.1 L (8.4-10.2) mg/dL Microbiology - Last 24 Hours (Table) 04/24/17 08:01 Blood Culture - Preliminary Blood No Growth after 24 hours 04/24/17 07:27 Blood Culture - Preliminary Blood No Growth after 24 hours 04/22/17 10:57 Blood Culture Gram Stain - Final Blood Blood Culture - Final Proteus mirabilis 04/21/17 11:23 Urine Culture - Final Urine,Catheterized Proteus mirabilis Pseudomonas aeruginosa 04/21/17 10:11 Gram Stain - Final Thigh - Right Wound Culture - Final Proteus mirabilis Staphylococcus aureus Pseudomonas aeruginosa Assessment and Plan Plan: 1 acute septic shock secondary to urinary tract infection, wound infection and bacteremia. Blood cultures positive for Proteus mirabilis, wound culture positive for Proteus mirabilis, presumptive staph aureus, urine culture positive for Proteus mirabilis and Pseudomonas aeruginosa.. 2 suspect mild fluid overload, no clear-cut evidence of pneumonia on the chest x -ray, there is some basilar atelectasis. 3 acute right lower extremity cellulitis related to recent surgical flap and ongoing purulent drainage from the surgical site could also be another source of infection and sepsis. 4 history of deep vein thrombosis 5 history of rheumatoid arthritis 6 history of hypothyroidism 7 history of previous MRSA infection. 8 history of chronic indwelling Charles catheter. 9 history of fibromyalgia 10 acute kidney injury related to sepsis. 11 acute gram-negative bacteremia from different sources Plan: Continue present treatment plan, continue antibiotics, follow the recommendations of infectious disease on the case regarding antibiotics and length of treatment. No active pulmonary issues noted today. And the patient remains hemodynamically stable on a regular medical floor. Time with Patient: Less than 30
[2017-04-25] MEDS: HYDROcodone/APAP 10-325MG 1 EACH TAB PO PRN (16:45)
[2017-04-26] MEDS: MEROPENEM 1 GM in SODIUM CHLORIDE 0.9% 100 ML IVPB SCH ×3 (00:01→17:01)
[2017-04-26] MEDS: ACETAMINOPHEN TAB 325 MG TAB PO PRN (05:02)
[2017-04-26] MEDS: ONDANSETRON 4 MG/2 ML VIAL IVP PRN ×2 (05:02→14:12)
[2017-04-26 08:10] LABS: Anion Gap 6 mmol/L; Blood Urea Nitrogen 19 mg/dL (7-17); Calcium 8.1 mg/dL (8.4-10.2); Carbon Dioxide 25 mmol/L (22-30); Chloride 106 mmol/L (98-107); Glucose 73 mg/dL (74-99); Non-African American GFR(MDRD) >60 (>60 ml/min/1.73 sqM); Potassium 3.5 mmol/L (3.5-5.1); Sodium 137 mmol/L (137-145)
--- NOTE | 2017-04-26 09:13 | ECHOF ---
Referral Reason:chf MEASUREMENTS -------- HEIGHT: 175.3 cm WEIGHT: 98.0 kg BP: 111/64 IVSd: 1.1 cm (0.6 - 1.1) LVIDd: 4.5 cm (3.9 - 5.3) LVPWd: 1.3 cm (0.6 - 1.1) IVSs: 1.7 cm LVIDs: 3.2 cm LVPWs: 1.9 cm LAESV Index (A-L): 22.79 ml/m Ao Diam: 4.0 cm (2.0 - 3.7) AV Cusp: 2.2 cm (1.5 - 2.6) LA Diam: 3.5 cm (2.7 - 3.8) MV EXCURSION: 19.783 mm (> 18.000) MV EF SLOPE: 106 mm/s (70 - 150) EPSS: 1.0 cm MV E Dajuan: 0.70 m/s MV DecT: 189 ms MV A Dajuan: 0.65 m/s MV E/A Ratio: 1.08 AR PHT: 324 ms RAP: 5.00 mmHg RVSP: 22.74 mmHg FINDINGS -------- Sinus rhythm. This was a technically good study. There is mild concentric left ventricular hypertrophy. Overall left ventricular systolic function is normal with, an EF between 55 - 60 %. The right ventricle is normal in size and function. Normal LA size by volume 22+/-6 ml/m2. The right atrium is normal in size. Aortic valve is trileaflet and is mildly thickened. Trace amount of aortic regurgitation. The mitral valve leaflets are mildly thickened. Mild mitral annular calcification present. Mild mitral regurgitation is present. Mild tricuspid regurgitation present. The right ventricular systolic pressure, as measured by Doppler, is 22.74mmHg. Pulmonic valve appears structurally normal. The aortic root is mildy dilated. Normal inferior vena cava with normal inspiratory collapse consistent with estimated right atrial pressure of 5 mmHg. The pericardium is normal. CONCLUSIONS -------- 1. Sinus rhythm. 2. The mitral valve leaflets are mildly thickened. 3. Mild mitral annular calcification present. 4. Mild mitral regurgitation is present. 5. Mild tricuspid regurgitation present. 6. The right ventricular systolic pressure, as measured by Doppler, is 22.74mmHg. 7. Pulmonic valve appears structurally normal. 8. The aortic root is mildy dilated. 9. Normal inferior vena cava with normal inspiratory collapse consistent with estimated right atrial pressure of 5 mmHg. 10. The pericardium is normal. 11. This was a technically good study. 12. There is mild concentric left ventricular hypertrophy. 13. Overall left ventricular systolic function is normal with, an EF between 55 - 60 %. 14. The right ventricle is normal in size and function. 15. Normal LA size by volume 22+/-6 ml/m2. 16. The right atrium is normal in size. 17. Aortic valve is trileaflet and is mildly thickened. 18. Trace amount of aortic regurgitation. CASINO HOST: Deedee Lopez RDCS
[2017-04-26] MEDS: FUROSEMIDE 20 MG TAB PO SCH (09:50)
[2017-04-26] MEDS: ENOXAPARIN 40 MG/0.4 ML SYRINGE SQ SCH (09:50)
[2017-04-26] MEDS: LACTULOSE 20 GM/30 ML CUP PO SCH (09:51)
[2017-04-26] MEDS: PANTOPRAZOLE 40 MG TABLET PO SCH (09:51)
--- NOTE | 2017-04-26 10:23 | XR ---
EXAMINATION TYPE: XR chest 1V DATE OF EXAM: 04/26/2017 COMPARISON: 04/24/2017 HISTORY: Cough TECHNIQUE: Single frontal view of the chest is obtained. FINDINGS: Mediport catheter seen with mild prominence heart. There is bilateral tiny effusions and s ubsegmental consolidation. Diffuse osteopenia and arthropathy of the shoulders. IMPRESSION: 1. Interstitium is improved suggestive of resolving interstitial process. 2. Tiny bilateral effusions and basilar atelectasis or infiltrate. 3. Vague density in the left upper lobe adjacent to the aortic arch correlate with standard PA and la teral views chest on a short-term basis.
[2017-04-26 11:02] LABS: Basophils % (A) 0 %; CHCM 29.2; Eosinophils # (A) 0.4 k/uL (0-0.7); Eosinophils % (A) 5 %; HCT 30.8 % (34.0-46.0); HDW 2.58; HGB 9.4 gm/dL (11.4-16.0); Hypochromasia Marked; Luc # (Auto) 0.18; Luc % (Auto) 2; Lymphocytes # (A) 0.9 k/uL (1.0-4.8); Lymphocytes % (A) 11 %; MCH 28.3 pg (25.0-35.0); MCHC 30.5 g/dL (31.0-37.0); MCV 92.8 fL (80.0-100.0); Mean Platelet Volume 9.4; Monocytes # (A) 0.7 k/uL (0-1.0); Monocytes % (A) 9 %; Neutrophils # (A) 5.5 k/uL (1.3-7.7); Neutrophils % (A) 72 %; RBC 3.32 m/uL (3.80-5.40); WBC 7.6 k/uL (3.8-10.6); WBC (Perox) 8.12
--- NOTE | 2017-04-26 13:20 | P.GSCN ---
History of Present Illness Consult date: 04/26/17 Reason for Consult: Recommendations restarting physical occupational therapy status post right leg flap 8 weeks prior History of present illness: 66-year-old female being seen at the request of the attending for surgical eval about restarting physical and occupational therapy in a patient who is status post right leg flap surgery 8 weeks prior done by plastic surgeon Dr. Gutierrez out of [facility]. The right leg flap surgical site area well approximated no evidence of any redness tenderness appears to be well-healed. Patient reportedly has been on bed rest since the surgery was done 8 weeks prior. Did note the patient does have a skin tear at the coccyx and 2 draining areas about a centimeter in size each at the dorsal aspect of the right upper thigh able to express clear secretions no odor noted to the secretions. Patient has an extensive past medical history of decubitus ulcers with previous MRSA infection with history of rheumatoid arthritis. It's noted that the patient was just discharged one week ago from [facility] to home. Patient stated that she been undergoing treatment for wound infection for the right leg flap surgery. Apparently had a wound VAC on at that time this was switched over to wound care using silver sulfadiazine by the wound care nurse. Apparently the drain was removed a week ago. Subsequently the patient returned to the emergency room shortly after with septic shock treated with 2 L of fluid bolus in the emergency room admitted to the intensive care unit started on pressors. Patient was monitored closely in the ICU by the critical care transport nurse, infectious disease and medical service. She was started on IV antibiotics with Levaquin and vancomycin wound cultures were obtained. Ultrasound bilateral lower extremity show no evidence of a DVT. Additionally patient was seen by urology Dr. Mercedes and was noted to have a urethral calculus. Recommendations further observation if patient's renal status continued to improve. Eventually patient was able to be off of pressors. . Patient did have positive blood cultures for gram-negative bacilli in the right thigh and urine culture were being followed by infectious disease. Patient was stabilized in the ICU transferred to the stepdown unit where patient is being seen for the surgical eval. Review of Systems Essentially unremarkable except as mentioned in the present Past Medical History Past Medical History: Deep Vein Thrombosis (DVT), Fibromyalgia, Rheumatoid Arthritis (RA), Skin Disorder, Thyroid Disorder Additional Past Medical History / Comment(s): "LEAKY BLADDER" IDC- CHANGED , "POOR CIRCULATION", HX NON HEALING WOUNDRT ANKLE/BUTTOCK. PAST RT HIP FX- NO SX DONE. History of Any Multi-Drug Resistant Organisms: MRSA Year Discovered:: 07/02/16 MDRO Source:: HAND Past Surgical History: Appendectomy, Cholecystectomy, Tonsillectomy Additional Past Surgical History / Comment(s): left foot wound debridement. nodule removed from thyroid. sinus surgery. surgical excision and debridment of sacrum with wound VAC placement on 08/05/15 and sx done(flap) that developed pin hole leak -had 2nd sx to repair". debridement wound care to right lower extremity wound on 08/21/15. Past Anesthesia/Blood Transfusion Reactions: No Reported Reaction Smoking Status: Never smoker - Past Family History Mother Family Medical History: AFIB, Cancer Additional Family Medical History / Comment(s): still living at age 91. skin cancer Father Family Medical History: Liver Disease, Rheumatoid Arthritis (RA) Additional Family Medical History / Comment(s): leukemia. at age 72 of liver problem. Medications and Allergies Home Medications Medication Instructions Recorded Confirmed Type HYDROcodone/APAP 10-325MG [[place] 1 tab PO Q6H PRN 12/04/15 04/21/17 History 10-325] Leflunomide [Arava] 20 mg PO DAILY 12/04/15 04/21/17 History Levothyroxine Sodium [Synthroid] 200 mcg PO DAILY 12/04/15 04/21/17 History Multivitamin/Iron/Folic Acid 1 tab PO DAILY 12/04/15 04/21/17 History [Centrum Complete Multivit Tab] Pregabalin [Lyrica] 100 mg PO BID 12/04/15 04/21/17 History Rivaroxaban [Xarelto] 15 mg PO DAILY 12/04/15 04/21/17 History fentaNYL 25MCG/HR PATCH [Duragesic 50 mcg TRANSDERM Q72H 01/06/16 04/21/17 History 25Mcg/Hr Patch] Ferrous Sulfate [Feosol] 325 mg PO DAILY 02/04/16 04/21/17 History Ascorbic Acid [Vitamin C] 500 mg PO DAILY 05/12/16 04/21/17 History Ergocalciferol [Vitamin D2] 50,000 unit PO Q7D 04/21/17 04/21/17 History Allergies Allergy/AdvReac Type Severity Reaction Status Date / Time Penicillins Allergy Rash/Hives Verified 04/21/17 11:00 Surgical - Exam Vital Signs Temp Pulse Resp BP Pulse Ox 101.2 F H 114 H 16 66/43 92 L 04/21/17 09:53 04/21/17 09:53 04/21/17 09:53 04/21/17 09:53 04/21/17 09:53 GENERAL APPEARANCE: 66-year-old female resting in bed patient is alert, oriented , in no acute distress. VITAL SIGNS: Reviewed HEENT: Head is normocephalic and atraumatic. Pupils are equal and reactive. The nares are patent. Oropharynx is clear without lesions. NECK: Supple without lymphadenopathy. Traches midline. HEART: S1, S2. Regular rate and rhythm. No murmur noted LUNGS: No crackles or wheezes are heard. Diminished at the bases otherwise adequate air movement ABDOMEN: Soft, nondistended slight tenderness left upper or lower quadrant with good bowel sounds. No peritoneal signs. No palpable organomegaly or masses. EXTREMITIES: Normal skin color and turgor. Radial pedal pulses are 2/4 bilaterally. NEUROLOGICAL: No focal deficits. Strength and sensation are grossly intact. Skin no skin rash there is a skin tear at the coccyx in and draining surgical scar to the skin flap well approximated no redness on the right Results - Labs 04/26/17 07:08 04/26/17 07:08 Abnormal Lab Results - Last 24 Hours (Table) 04/26/17 04/26/17 Range/Units 07:08 07:08 RBC 3.32 L (3.80-5.40) m/uL Hgb 9.4 L (11.4-16.0) gm/dL Hct 30.8 L (34.0-46.0) % MCHC 30.5 L (31.0-37.0) g/dL Lymphocytes # 0.9 L (1.0-4.8) k/uL BUN 19 H (7-17) mg/dL Glucose 73 L (74-99) mg/dL Calcium 8.1 L (8.4-10.2) mg/dL Microbiology - Last 24 Hours (Table) 04/24/17 08:01 Blood Culture - Preliminary Blood No Growth after 48 hours 04/24/17 07:27 Blood Culture - Preliminary Blood No Growth after 48 hours 04/21/17 10:11 Blood Culture Gram Stain - Final Blood Blood Culture - Final Proteus mirabilis Diabetes panel 04/26/17 Range/Units 07:08 Sodium 137 (137-145) mmol/L Potassium 3.5 (3.5-5.1) mmol/L Chloride 106 (98-107) mmol/L Carbon Dioxide 25 (22-30) mmol/L BUN 19 H (7-17) mg/dL Creatinine 0.71 (0.52-1.04) mg/dL Glucose 73 L (74-99) mg/dL Calcium 8.1 L (8.4-10.2) mg/dL Calcium panel 04/26/17 Range/Units 07:08 Calcium 8.1 L (8.4-10.2) mg/dL Pituitary panel 04/26/17 Range/Units 07:08 Sodium 137 (137-145) mmol/L Potassium 3.5 (3.5-5.1) mmol/L Chloride 106 (98-107) mmol/L Carbon Dioxide 25 (22-30) mmol/L BUN 19 H (7-17) mg/dL Creatinine 0.71 (0.52-1.04) mg/dL Glucose 73 L (74-99) mg/dL Calcium 8.1 L (8.4-10.2) mg/dL Adrenal panel 04/26/17 Range/Units 07:08 Sodium 137 (137-145) mmol/L Potassium 3.5 (3.5-5.1) mmol/L Chloride 106 (98-107) mmol/L Carbon Dioxide 25 (22-30) mmol/L BUN 19 H (7-17) mg/dL Creatinine 0.71 (0.52-1.04) mg/dL Glucose 73 L (74-99) mg/dL Calcium 8.1 L (8.4-10.2) mg/dL Assessment and Plan Plan: Impression septic shock secondary to Charles catheter associate urinary tract infection and pyelonephritis with gram-negative bacilli septicemia Present on admission wound right dorsal part of the thigh recent skin flap 8 weeks prior Chronic debility due to comorbidities Rheumatoid arthritis stable History of a DVT on Xarelto in the past Nonhealing stage IV pressure ulcer in the right ischium and stage III pressure ulcer in the right first toe in the right lateral thigh Leukocytosis improving Plan From a surgical perspective in regards to the skin flap on the right thigh patient is appropriate to resume physical and occupational therapy at this time Keep patient on air mattress off pressure point Tegaderm to the skin tear at the coccyx area Computed tomography scan right extremity follow-up IV antibiotics per infectious disease Aquacel AG rope to the affected area Follow surgical coarse with further surgical recommendations as indicated The above impression and plan of care have been discussed and directed by signing physician. Tiffany Jason nurse practitioner acting as scribe for signing physician.
[2017-04-26] MEDS: VANCOMYCIN 1,500 MG in SODIUM CHLORIDE 0.9% 250 ML IVPB SCH (14:09)
--- NOTE | 2017-04-26 14:10 | P.PN ---
Subjective Principal diagnosis: Acute septic shock from acute urinary tract infection This is a 66-year-old female with history of multiple medical problems including right leg flap surgery done about 8 weeks ago, and she continues to have some purulent drainage from the site of the surgery in the back of her thigh. Patient is also known to have history of rheumatoid arthritis, hypothyroidism, deep vein thrombosis, maintained on Xarelto, history of fibromyalgia, and history of decubitus ulcers. Patient had previous MRSA infection. Patient was brought into the ER mostly with multiple complaints including not feeling well, weakness, low-grade fever, and this has been going on for the last couple of days. Patient was also complaining of left flank pain and left lower quadrant pain, also noted to have thick discolored urine, bloody at times, and she does have a chronic indwelling Charles catheter. During her evaluation in the ER, patient was noted to be hypotensive she received 2 L of crystalloids, and she remained hypotensive hence at the right subclavian central line was placed, and patient was started on norepinephrine. She is presently on 20 mics of norepinephrine. Blood pressure seems to be stabilizing. She is also receiving her third liter of 0.9 normal saline. Improved significantly since admission but remains critically ill. Patient was also noted to have significant leukocytosis with WBC count of 28.3 elevated lactic acid of 2.9, repeat was 1.6 after fluid boluses. She was also noted to have significant pyuria and bacteriuria noted in her urinalysis. CT of abdomen and pelvis showed left sided diverticulosis, mild the left sided hydronephrosis with mid pelvic level calcifications, renal edema was noted, underlying infection is not excluded. There was also a 4 mm nonobstructing calculus, right horseshoe component lower pole. The patient herself is not the greatest historian, she had multiple vague complaints, but she had no clue how sick she was upon presentation. Patient was started on antibiotics in the form of Levaquin and vancomycin, (patient is ALLERGIC to penicillin). Patient was given fluid boluses she is presently on her third liter of crystalloid and she was placed on norepinephrine presently being titrated to a mean arterial pressure of 65 or higher. Chest x-ray is beginning to show mild central vascular congestion, and chronic parenchymal changes with basilar atelectasis, doubt infiltrates. Patient denied any headaches no blurred vision no dizziness. Denied any shortness of breath cough or wheezing. No nausea no vomiting, she did have abdominal pain mostly in the left lower quadrant, one episode of diarrhea yesterday, but no melena no hematemesis. Patient had a chronic indwelling Charles catheter. Denies any specific urinary symptoms. No dysuria, no frequency, no urgency. Again she does have left flank pain. Patient is known to have histories of severe rheumatoid arthritis used to see Dr. Hernandez and she was treated in the past with Arava. Patient was reevaluated today on 04/22/2017, doing much better compared to yesterday, hemodynamically stable, off norepinephrine. IV fluid is at 100 mL per hour. Patient has excellent urine output, her cultures of the blood came back negative for gram-negative bacilli, final identification is pending. In the meantime the patient seems to be on appropriate antibiotics. She is on Merrem and on vancomycin. I discontinued her hydrocortisone since the patient was not on maintenance dose of prednisone and the last one year. Patient is relatively asymptomatic, feeling much better today compared to how she felt yesterday upon presentation. Continues to have leukocytosis with WBC count of 32.8. Basic metabolic profile is normal. Renal profile showed BUN of 32 creatinine of 1.3 significantly improved compared to yesterday's labs. Patient denies any abdominal pain, no shortness of breath, her weakness seems to be even significantly improved. Patient was reevaluated today on 04/23/2017, continues to do well, however last night required the placement on norepinephrine again because of low blood pressure, however this was discontinued at 7 AM this morning. Overall the patient is doing better, relatively asymptomatic. WBC count is coming down to 23.0 from 32.8 on admission hemoglobin is 9.5 electrolytes and renal profile are normal. Significantly improved. Chest x-ray is showing left basilar atelectasis, no evidence of pneumonia at this time. Patient has no active pulmonary symptoms. Her cultures from the urine blood 1 were all reviewed, and her antibiotics are being addressed by Dr. Joya on the case. Patient was seen again today 04/24/2017 in follow-up on the regular medical floor. She is awake and alert in no acute distress. She has been hemodynamically stable. She remains on vancomycin and meropenem per ID services. She is currently afebrile. Maintaining good O2 saturations in the 90s on room air. Today's chest x-ray shows some mild fluid volume overload. Has been initiated on Lasix. Patient was reevaluated today on 04/25/2017, she has no active pulmonary symptoms , no cough no wheezing no shortness of breath, remains on antibiotics for her septic shock presentation as noted above. Patient remains on room air, and maintaining adequate saturations. Yesterday she was placed on Lasix. And seems to be working well for the patient. Basic metabolic profile today is normal. 04/26/2017 patient has a loose congested cough, nonproductive. He continues to oxygenate reasonably well 94-94% on room air. No wheezes, no rales. Lung sounds are coarse rhonchi scattered throughout the lung muñoz. She requires encouragement with her incentive spirometer. We Obtained follow-up chest x-ray today. He was reviewed with Dr. Rawls and actually shows improvement from the previous chest x-ray. Tiny bilateral effusions and basilar atelectasis or infiltrate present. No evidence of fluid overload. Patient continues to improve slowly. She is bedbound at home, we will consult physical therapy to help mobilize patient as tolerated. Objective - Vital Signs Vital signs: Vital Signs Temp 98.8 F 04/26/17 07:00 Pulse 72 04/26/17 07:00 Resp 18 04/26/17 08:00 BP 107/55 04/26/17 07:00 Pulse Ox 94 L 04/26/17 07:00 Intake & Output 04/25/17 04/26/17 04/26/17 18:59 06:59 18:59 Intake Total 450 Output Total 2500 1028 Balance -2500 -578 Intake: Intake, IV Titration 450 Amount Meropenem 1 gm In Sodium 200 Chloride 0.9% 100 ml @ 200 mls/hr IVPB Q8HR [facility] Rx#:[id number] Vancomycin 1,500 mg In 250 Sodium Chloride 0.9% 250 ml @ 125 mls/hr IVPB Q16H [facility] Rx#:[id number] Output: Urine 2500 900 Post Void Residual 128 Other: Voiding Method Indwelling Catheter Indwelling Catheter Indwelling Catheter # Bowel Movements 2 0 - Exam Exam General appearance: Pleasant 66-year-old female, in no distress, presently on nasal cannula. Head exam: Normocephalic, atraumatic Eye exam: PERRLA, EOMI. No icterus. ENT exam: Clear throat, moist mucous membranes, nasal mucosa is intact. Neck exam: No stridor, no cervical lymphadenopathy, no thyromegaly. Respiratory exam: Diminished breath sounds and scattered rhonchi at the bases noted bilaterally. Cardiovascular Exam: Normal S1 and S2, no S3 gallop. No murmur. GI/Abdominal exam: Abdomen is soft, tenderness Mild epigastric tenderness. No rebound, no guarding. Extremities exam: (Right posterior leg flap clean and dry and intact and healing well except for the lower portion with less than 1 cm open area with mild purulent discharge. Neurological exam: No focal neurologic deficit Psychiatric exam: Present: normal affect, normal mood Skin exam: As noted above, draining wound on the posterior right leg. - Labs CBC & Chem 7: 04/26/17 07:08 04/26/17 07:08 Labs: Abnormal Lab Results - Last 24 Hours (Table) 04/26/17 04/26/17 Range/Units 07:08 07:08 RBC 3.32 L (3.80-5.40) m/uL Hgb 9.4 L (11.4-16.0) gm/dL Hct 30.8 L (34.0-46.0) % MCHC 30.5 L (31.0-37.0) g/dL Lymphocytes # 0.9 L (1.0-4.8) k/uL BUN 19 H (7-17) mg/dL Glucose 73 L (74-99) mg/dL Calcium 8.1 L (8.4-10.2) mg/dL Microbiology - Last 24 Hours (Table) 04/24/17 08:01 Blood Culture - Preliminary Blood No Growth after 48 hours 04/24/17 07:27 Blood Culture - Preliminary Blood No Growth after 48 hours 04/21/17 10:11 Blood Culture Gram Stain - Final Blood Blood Culture - Final Proteus mirabilis Assessment and Plan Plan: Assessment and Plan Plan: 1 acute septic shock secondary to urinary tract infection, wound infection and bacteremia. Blood cultures positive for Proteus mirabilis, wound culture positive for Proteus mirabilis, presumptive staph aureus, urine culture positive for Proteus mirabilis and Pseudomonas aeruginosa.. 2 suspect mild fluid overload, no clear-cut evidence of pneumonia on the chest x -ray, there is some basilar atelectasis. 3 acute right lower extremity cellulitis related to recent surgical flap and ongoing purulent drainage from the surgical site could also be another source of infection and sepsis. 4 history of deep vein thrombosis 5 history of rheumatoid arthritis 6 history of hypothyroidism 7 history of previous MRSA infection. 8 history of chronic indwelling Charles catheter. 9 history of fibromyalgia 10 acute kidney injury related to sepsis. 11 acute gram-negative bacteremia from different sources Plan: Continue present treatment plan, continue antibiotics, follow the recommendations of infectious disease on the case regarding antibiotics and length of treatment. No active pulmonary issues noted today. chest X-ray has been reviewed shows no signs of fluid overload. Encourage incentive spirometer. Mobilize the patient with physical therapy as tolerated. The patient remains hemodynamically stable on a regular medical floor. I performed a history & physical examination of the patient and discussed their management with my nurse practitioner, Alberta Euceda. I reviewed the nurse practitioner's note and agree with the documented findings and plan of care.
--- NOTE | 2017-04-26 14:10 | CT ---
EXAMINATION TYPE: CT lower extremity RT wo con DATE OF EXAM: 04/26/2017 COMPARISON: NONE HISTORY: Patient poor historian. Patient had a right leg flap [address] DLP: 1101 mGycm Automated exposure control for dose reduction was used. Unenhanced CT was performed of the right lower extremity from the hip through the ankle. Bone and sof t tissue window settings are submitted. FINDINGS: There is moderate subcutaneous edema extending primarily from the level of the knee through the level of the ankle. I do not see evidence for collection at this time to suggest focal abscess. Soft tissu e calcifications are evident. Bony structures are intact without evidence for destructive process to suggest osteomyelitis. Severe degenerative change about the knee and right hip joint. IMPRESSION: RIGHT LOWER EXTREMITY CELLULITIS.
--- NOTE | 2017-04-26 14:21 | XR ---
EXAMINATION TYPE: XR abdomen 1V DATE OF EXAM: 04/26/2017 COMPARISON: NONE HISTORY: Pain TECHNIQUE: One view abdominal series FINDINGS: The osseous structures are intact. The bowel gas pattern is nonspecific. Complete loss of joint spac e of the left hip with deformity of the femoral head and neck. Heterotopic ossification severe arthro gurmeet of the right hip. Few osteopenia and degenerative change lower lumbar spine. Scoliosis noted. Tiny left pleural effusion seen. IMPRESSION: 1. Left basilar infiltrate and small effusion. 2. There are few prominent small bowel loops seen throughout the abdomen. Air is seen in the colon. P attern is nonspecific may been the basis of a ileus, enteritis. Partial obstruction not entirely excl uded.
--- NOTE | 2017-04-26 14:30 | P.PN ---
Subjective 66 years old female patient of Dr. Moyer with past medical history of right leg flap surgery done about 8 weeks ago, history of rheumatoid arthritis, hypothyroidism, DVT 1 year ago on 02, history of fibromyalgia, history of decubitus ulcer, previous MRSA infection presents today with worsening abdominal pain for the past 4 days that started on the left side and moved to her right low quadrant, associated with chills and feeling of warmth, generalized weakness. Patient denies any history of chest pain, shortness of breath, hematemesis, melena or vomiting. Patient was just discharged from [facility] one week ago after undergoing treatment for wound infection around the right leg flap surgery. Patient stated she was on wound VAC for epidural time before switching to silver sulfadiazine by the wound care nurse. Drain was removed one week ago. In the ED patient received 2 L of fluid but remained hypotensive and hence admitting to the ICU. Patient was started on norepinephrine. Patient lactic acid on admission was 2.9 which improved to 1.6 after fluid resuscitation, WBC 28.3 with urinalysis suggestive of infection patient was covered with vancomycin and Levaquin. Blood cultures and urine cultures were sent. Chest x- ray done in the ED suggested some mild intravascular congestion with though CT abdomen and pelvis showed left-sided diverticulosis, with mild left-sided hydronephrosis and pelvic calcification, a 4 mm nonobstructing calculus was also seen in the lower pole. 04/22: Patient remains in the intensive care unit. She is followed by Dr. Early for intensive care management. Patient is status post fluid bolus and is currently on IV antibiotics in form of Levaquin and vancomycin. Ultrasound bilateral lower extremities negative for DVT. Repeat chest x-ray showed bilateral infiltrate greater on the left appears stable. Cannot exclude mild venous congestion. Patient has been seen by Dr. Mercedes and he does not feel that the patient has a left ureteral calculus at this time and recommends further observation as long as patient's renal function continues to improve. Patient's white count is up to 32.8. BUN is 32 and creatinine 1.3 which is improved from yesterday of 34 and 1.9. Patient has a positive blood culture gram-negative bacilli. Wound culture (right thigh) and urine culture in progress. Patient is currently off norepinephrine. Repeat blood cultures will be requested and ID consult placed with Dr. Joya and he has placed the patient on meropenem versus Levaquin. Patient's Charles catheter has been changed on this admission. 04/23: Patient remains in intensive care unit has been cleared for transfer to monitored floor with telemetry by Dr. Early. Patient was back on norepinephrine last night but this was discontinued before the day shift today. Patient feels like she needs to have a bowel movement and having some discomfort in her abdomen. Lactulose has been added. Initial blood culture is showing Proteus species and otherwise cultures are in progress. Repeat blood cultures obtained on April 22 are also positive and repeat blood culture will be ordered for the morning. Patient's home [place] dose will be resumed as she is complaining of generalized arthritic pain 04/24: Patient was evaluated today. She is noted to be resting comfortably in bed, in no acute distress. She continues on her IV vancomycin and meropenem, and continues to be followed by infectious disease. Blood cultures positive for Proteus mirabilis, wound cultures also positive for Proteus mirabilis, urine cultures positive for Proteus mirabilis and Pseudomonas aeruginosa. She had a repeat chest x-ray that did show some mild fluid overload, IV fluids were discontinued and IV Lasix started. Incentive spirometer was also ordered. 04/25: Patient was evaluated today, she is noted to be resting comfortably in bed , in no acute distress. She does complain of some nausea, IV Zofran and GI cocktail were ordered. Patient noted to have some fluid overload on her repeat chest x-ray yesterday, IV Lasix were given, echocardiogram ordered, and is pending. Patient will most likely need subacute rehab upon discharge. Discharge may be complicated due to the fact that she recently had a short stay at a [facility] and insurance may not approve another stay. regional service manager was consulted. 04/26: Patient complains still having a cough. She denies any nausea. She is having loose stools 3 episodes yesterday and 2 this morning. Stool is sent for C. diff toxin. Abdominal x-ray and chest x-ray have been ordered. Consult with general surgeon regarding whether patient can stop bed rest and participate in PT. Bed rest was ordered by her plastic surgeon after the flap surgery. General surgeon has ordered a CAT scan of the right lower extremity which shows cellulitis. PICC line insertion has been ordered. Dr. Joya is following for antibiotics. regional service manager and social work working with the patient regarding discharge plan which hopefully will be [place] in the next 24- 48 hours. Objective - Vital Signs Vital signs: Vital Signs Temp 98.8 F 04/26/17 07:00 Pulse 72 04/26/17 07:00 Resp 18 04/26/17 08:00 BP 107/55 04/26/17 07:00 Pulse Ox 94 L 04/26/17 07:00 Intake & Output 04/25/17 04/26/17 04/26/17 18:59 06:59 18:59 Intake Total 450 Output Total 2500 1028 Balance -2500 -578 Intake: Intake, IV Titration 450 Amount Meropenem 1 gm In Sodium 200 Chloride 0.9% 100 ml @ 200 mls/hr IVPB Q8HR HANY Rx#:[id number] Vancomycin 1,500 mg In 250 Sodium Chloride 0.9% 250 ml @ 125 mls/hr IVPB Q16H HANY Rx#:[id number] Output: Urine 2500 900 Post Void Residual 128 Other: Voiding Method Indwelling Catheter Indwelling Catheter Indwelling Catheter # Bowel Movements 2 0 - Exam General appearance: average body habitus, cooperative, mild distress - EENT Eyes: EOMI, PERRLA, no photophobia, no scleral icterus ENT: normal oropharynx Ears: bilateral: normal - Neck Neck: no lymphadenopathy, no normal ROM Carotids: bilateral: upstroke normal - Respiratory Respiratory: bilateral: CTA, diminished (at bases ), negative: dullness, rales, rhonchi, wheezing - Cardiovascular Rhythm: regular Heart sounds: normal: S1, S2 Abnormal Heart Sounds: no systolic murmur, no diastolic murmur ankle Peripheral Edema: bilateral: None - Gastrointestinal General gastrointestinal: normal bowel sounds, soft, tenderness Localized gastrointestinal: tender: LUQ, LLQ - Integumentary Integumentary: cellulitis (Patient has skin tear at the coccyx, and a draining 1 cm size lesion at the dorsal surfaces of the right eye at the site of patient' s previous flap surgery) - Neurologic Neurologic: CNII-XII intact, focal deficits (no focal deficit ) - Musculoskeletal Musculoskeletal: gait normal, generalized weakness - Psychiatric Psychiatric: A&O x's 3, appropriate affect - Labs CBC & Chem 7: 04/26/17 07:08 04/26/17 07:08 Labs: Abnormal Lab Results - Last 24 Hours (Table) 04/26/17 Range/Units 07:08 BUN 19 H (7-17) mg/dL Glucose 73 L (74-99) mg/dL Calcium 8.1 L (8.4-10.2) mg/dL Microbiology - Last 24 Hours (Table) 04/24/17 08:01 Blood Culture - Preliminary Blood No Growth after 48 hours 04/24/17 07:27 Blood Culture - Preliminary Blood No Growth after 48 hours 04/21/17 10:11 Blood Culture Gram Stain - Final Blood Blood Culture - Final Proteus mirabilis Assessment and Plan Plan: #1 septic shock secondary to Charles catheter associated urinary tract infection and pyelonephritis with Proteus bacteremia, septicemia. Patient also has a wound on her right dorsal part of the thigh at the site of incision of her recent surgerical flap around 1 cm with the overlying drainage which could also be a possibility source of infection -Blood culture Culture urine culture sent - Patient has history of rheumatoid arthritis may have underlying adrenal insufficiency, with stress doses of hydrocortisone 50 mg every 8 -Consult with Dr. Joya appreciated -Repeat blood cultures -PICC line to be placed today -Surgical consult appreciated and patient to start physical therapy #2 history of DVT- on xarelto for 1 year, anticoagulant held, patient placed on Lovenox 30 subcu daily as prophylaxis, USG venous b/l r/o acute DVT #3 history of rheumatoid arthritis- stable #4 history of hypothyroidism continue Synthyroid #5 history of MRSA infection- wound culture sent from the site of the surgery patient covered with vancomycin #6 chronic indwelling Charles catheter which has been changed on this admission,- poor urine output, monitor TOMER's while in the ICU. Urology consulted for an hydronephrosis seen on the left side. #7 acute kidney injury likely secondary to sepsis- #8 DVT prophylaxis with Lovenox #9 GI prophylaxis - Pepcid 20 mg twice a day CODE STATUS full code Discharge plan: Hopefully [place] in the next 24-48 hours Impression and plan of care have been directed as dictated by the signing physician. Arlene Darnell nurse practitioner acting as scribe for signing physician.
[2017-04-26] MEDS: METOCLOPRAMIDE 10 MG TAB PO SCH (17:06)
--- NOTE | 2017-04-26 20:53 | P.PN ---
Subjective Principal diagnosis: gram-negative sepsis This is a 66-year-old female patient that is well-known to ID service as she has been treated for nonhealing stage IV pressure ulcer in the right ischium and stage III pressure ulcer in the right first toe as well as right lateral leg and was previously under the care of Dr. Medina and [facility]. She has subsequently underwent a right leg flap surgery 8 weeks ago. She was just discharged from [facility] one week ago after undergoing treatment for wound infection. Drain was removed 1 week ago. She was on a wound VAC but then switched to Silvadene by the wound care nurse. We have also seen her in the past for sepsis secondary to E. coli urinary tract infection and required PICC line placement and IV antibiotics which was in the form of ceftriaxone. She now presents to [facility] emergency center with abdominal pain for 4 days on the left side then to her right lower quadrant, chills and weakness. Patient presented with hypotension and was started on the sepsis protocol and is status post IV fluids and norepinephrine which was discontinued this morning. Her initial lactic acid was 2.9 and has improved. White count at 28.3 initially and has increased to 32.8. Patient was admitted to the intensive care unit and placed on vancomycin and Levaquin. Blood cultures came back with gram-negative bacilli. Patient has had urinary tract infection with E. coli that was Levaquin resistant in the past. There was also on CAT scan left-sided diverticulosis, mild left-sided hydronephrosis and pelvic calcification, 4 mm nonobstructing calculus in the lower pole. Patient has been evaluated by Dr. Mercedes and he does not feel that the patient has a left ureteral calculus at this time and recommends further observation as long as patient's renal function continues to improve. Renal function is improving. Patient certainly feels somewhat better today. Objective - Vital Signs Vital signs: Vital Signs Temp 99.9 F H 04/26/17 15:00 Pulse 83 04/26/17 15:00 Resp 18 04/26/17 15:18 BP 172/70 04/26/17 15:00 Pulse Ox 91 L 04/26/17 15:00 Intake & Output 04/26/17 04/26/17 04/27/17 06:59 18:59 06:59 Intake Total 450 Output Total 1028 1000 Balance -578 -1000 Intake: Intake, IV Titration 450 Amount Meropenem 1 gm In Sodium 200 Chloride 0.9% 100 ml @ 200 mls/hr IVPB Q8HR [facility] Rx#:[id number] Vancomycin 1,500 mg In 250 Sodium Chloride 0.9% 250 ml @ 125 mls/hr IVPB Q16H [facility] Rx#:[id number] Output: Urine 900 1000 Post Void Residual 128 Other: Voiding Method Indwelling Catheter Indwelling Catheter # Bowel Movements 0 2 - Exam Gen: This is a 66-year-old female patient seen in the ICU. She appears to be comfortable at this time. Continues to have no distinct pallor but improved from yesterday HEENT: Head is atraumatic, normocephalic. Pupils equal, round. Sclerae is anicteric. NECK: Supple. No JVD. No lymphadenopathy. No thyromegaly. LUNGS: Diminished bilaterally. No wheezes or rhonchi. No intercostal retractions. HEART: Regular rate and rhythm. No murmur. ABDOMEN: Soft. Bowel sounds are present. No masses. No tenderness. EXTREMITIES: The ulcer to the right posterior calf has evidence of the 2 small open areas that have scant drainage. Therahoney dressing will be applied. NEUROLOGICAL: Patient is awake, alert and oriented x3. - Labs CBC & Chem 7: 04/26/17 07:08 04/26/17 07:08 Labs: Abnormal Lab Results - Last 24 Hours (Table) 04/26/17 04/26/17 Range/Units 07:08 07:08 RBC 3.32 L (3.80-5.40) m/uL Hgb 9.4 L (11.4-16.0) gm/dL Hct 30.8 L (34.0-46.0) % MCHC 30.5 L (31.0-37.0) g/dL Lymphocytes # 0.9 L (1.0-4.8) k/uL BUN 19 H (7-17) mg/dL Glucose 73 L (74-99) mg/dL Calcium 8.1 L (8.4-10.2) mg/dL Microbiology - Last 24 Hours (Table) 04/26/17 12:50 Wound Culture - Preliminary Thigh - Right 04/24/17 08:01 Blood Culture - Preliminary Blood No Growth after 48 hours 04/24/17 07:27 Blood Culture - Preliminary Blood No Growth after 48 hours Laboratory Results WBC 7.6 k/uL (3.8-10.6) 04/26/17 07:08 RBC 3.32 m/uL (3.80-5.40) L 04/26/17 07:08 Hgb 9.4 gm/dL (11.4-16.0) L 04/26/17 07:08 Hct 30.8 % (34.0-46.0) L 04/26/17 07:08 MCV 92.8 fL (80.0-100.0) 04/26/17 07:08 MCH 28.3 pg (25.0-35.0) 04/26/17 07:08 MCHC 30.5 g/dL (31.0-37.0) L 04/26/17 07:08 RDW 15.0 % (11.5-15.5) 04/26/17 07:08 Plt Count 173 k/uL (150-450) 04/26/17 07:08 Neutrophils % 72 % 04/26/17 07:08 Lymphocytes % 11 % 04/26/17 07:08 Monocytes % 9 % 04/26/17 07:08 Eosinophils % 5 % 04/26/17 07:08 Basophils % 0 % 04/26/17 07:08 Neutrophils # 5.5 k/uL (1.3-7.7) 04/26/17 07:08 Lymphocytes # 0.9 k/uL (1.0-4.8) L 04/26/17 07:08 Monocytes # 0.7 k/uL (0-1.0) 04/26/17 07:08 Eosinophils # 0.4 k/uL (0-0.7) 04/26/17 07:08 Basophils # 0.0 k/uL (0-0.2) 04/26/17 07:08 Manual Slide Review Performed 04/21/17 10:11 Toxic Granulation Present 04/21/17 10:11 Hypochromasia Marked 04/26/17 07:08 Poikilocytosis (manual Present 04/21/17 10:11 PT 13.5 sec (9.0-12.0) H 04/21/17 10:11 INR 1.4 (<1.2) H 04/21/17 10:11 APTT 30.6 sec (22.0-30.0) H 04/21/17 10:11 Sodium 137 mmol/L (137-145) 04/26/17 07:08 Potassium 3.5 mmol/L (3.5-5.1) 04/26/17 07:08 Chloride 106 mmol/L (98-107) 04/26/17 07:08 Carbon Dioxide 25 mmol/L (22-30) 04/26/17 07:08 Anion Gap 6 mmol/L 04/26/17 07:08 BUN 19 mg/dL (7-17) H 04/26/17 07:08 Creatinine 0.71 mg/dL (0.52-1.04) 04/26/17 07:08 Est GFR (MDRD) Af Amer >60 (>60 ml/min/1.73 sqM) 04/26/17 07:08 Est GFR (MDRD) Non-Af >60 (>60 ml/min/1.73 sqM) 04/26/17 07:08 Glucose 73 mg/dL (74-99) L 04/26/17 07:08 POC Glucose (mg/dL) 110 mg/dL (75-99) H 04/23/17 03:32 POC Glu [employer] Associate ID Amari Duong 04/23/17 03:32 Lactic Ac Sepsis Rflx Y 04/21/17 11:09 Plasma Lactic Acid Darryl 1.6 mmol/L (0.7-2.0) 04/21/17 15:00 Calcium 8.1 mg/dL (8.4-10.2) L 04/26/17 07:08 Phosphorus 1.8 mg/dL (2.5-4.5) L 04/24/17 07:27 Magnesium 2.2 mg/dL (1.6-2.3) 04/23/17 04:30 Total Bilirubin 0.8 mg/dL (0.2-1.3) 04/21/17 10:11 AST 62 U/L (14-36) H 04/21/17 10:11 ALT 45 U/L (9-52) 04/21/17 10:11 Alkaline Phosphatase 138 U/L (38-126) H 04/21/17 10:11 CK-MB (CK-2) 1.9 ng/mL (0.0-2.4) 04/22/17 10:57 Troponin I 0.195 ng/mL (0.000-0.034) H* 04/22/17 10:57 Total Protein 5.7 g/dL (6.3-8.2) L 04/21/17 10:11 Albumin 2.7 g/dL (3.5-5.0) L 04/21/17 10:11 Cortisol 75 ug/dL 04/21/17 10:11 Urine Color Light Red 04/21/17 11:23 Urine Appearance Turbid (Clear) H 04/21/17 11:23 Urine pH 7.5 (5.0-8.0) 04/21/17 11:23 Ur Specific [place] 1.020 (1.001-1.035) 04/21/17 11:23 Urine Protein 2+ (Negative) H 04/21/17 11:23 Urine Glucose (UA) Negative (Negative) 04/21/17 11:23 Urine Ketones Negative (Negative) 04/21/17 11:23 Urine Blood Moderate (Negative) H 04/21/17 11:23 Urine Nitrite Negative (Negative) 04/21/17 11:23 Urine Bilirubin Negative (Negative) 04/21/17 11:23 Urine Urobilinogen <2.0 mg/dL (<2.0) 04/21/17 11:23 Ur Leukocyte Esterase Large (Negative) H 04/21/17 11:23 Urine RBC >182 /hpf (0-5) H 04/21/17 11:23 Urine WBC >182 /hpf (0-5) H 04/21/17 11:23 Urine WBC Clumps Many /hpf (None) H 04/21/17 11:23 Urine Bacteria Moderate /hpf (None) H 04/21/17 11:23 Vancomycin Trough 18.8 ug/mL 04/24/17 12:37 C. difficile (EIA) Intrp Negative (Negative) 04/26/17 11:00 Microbiology 04/26/17 12:50 Thigh - Right Wound Culture - Preliminary 04/24/17 08:01 Blood Blood Culture - Preliminary No Growth after 48 hours 04/24/17 07:27 Blood Blood Culture - Preliminary No Growth after 48 hours 04/21/17 10:11 Blood Blood Culture Gram Stain - Final 04/21/17 10:11 Blood Blood Culture - Final Proteus mirabilis 04/22/17 10:57 Blood Blood Culture Gram Stain - Final 04/22/17 10:57 Blood Blood Culture - Final Proteus mirabilis 04/21/17 11:23 Urine,Catheterized Urine Culture - Final Proteus mirabilis Pseudomonas aeruginosa 04/21/17 10:11 Thigh - Right Gram Stain - Final 04/21/17 10:11 Thigh - Right Wound Culture - Final Proteus mirabilis Staphylococcus aureus Pseudomonas aeruginosa 04/22/17 10:57 Blood Blood Culture - Final 04/21/17 10:11 Blood Blood Culture - Final Assessment and Plan (1) Septic shock Narrative/Plan: This pleasant woman presents to Hospital of evidence of gram-negative sepsis. She's had the flap and graft performed to the right lower extremity and apparently is doing quite well. Still having some drainage from the sites were drain tubes were in place. The leg is not very tender. There is only minimal erythema. Patient remains quite ill but is hemodynamically more stable. Not requiring vasopressor therapy. Did well fluid resuscitation. Will be followed closely by urology to ensure there is no need for intervention. Await final cultures to help determine de-escalation of antimicrobial therapy if possible. Currently receiving meropenem given her history and her ALLERGIES. She has a profound leukocytosis in the bases of her gram-negative sepsis. Also has acute renal failure on the basis of her current sepsis. She continues with improvement today. Her leukocytosis has resolved Renal failure has resolved The blood culture revealed Proteus as did her urine culture. Urine culture also with Proteus and Pseudomonas. Wound culture with Proteus staph aureus and Pseudomonas. Consequently will utilize cefepime 2 g IV piggyback every 12 hours plan 14 days for her bacteremic urinary tract infection. Local wound care as the silver dressing to the right posterior calf Wednesday. Status: Acute
[2017-04-26] MEDS: CEFEPIME 2 GM in SODIUM CHLORIDE 0.9% 50 ML IVPB SCH (21:57)
[2017-04-27] MEDS: ACETAMINOPHEN TAB 325 MG TAB PO PRN (03:10)
[2017-04-27] MEDS: ONDANSETRON 4 MG/2 ML VIAL IVP PRN (03:10)
[2017-04-27 04:53] LABS: Basophils % (A) 0 %; CH 27.1; Eosinophils # (A) 0.4 k/uL (0-0.7); Eosinophils % (A) 5 %; HCT 31.8 % (34.0-46.0); HDW 2.59; HGB 9.8 gm/dL (11.4-16.0); Hypochromasia Marked; Luc # (Auto) 0.24; Luc % (Auto) 3; Lymphocytes % (A) 12 %; MCHC 30.9 g/dL (31.0-37.0); MCV 90.6 fL (80.0-100.0); Mean Platelet Volume 8.2; Monocytes # (A) 0.5 k/uL (0-1.0); Monocytes % (A) 5 %; Neutrophils # (A) 6.7 k/uL (1.3-7.7); Neutrophils % (A) 76 %; RBC 3.51 m/uL (3.80-5.40); RDW 14.9 % (11.5-15.5); WBC 8.9 k/uL (3.8-10.6); WBC (Perox) 9.06
[2017-04-27] MEDS ORDERED: VANCOMYCIN TROUGH DUE 1 EACH MISC MISCELLANE ONE (05:00)
[2017-04-27 05:27] LABS: Anion Gap 5 mmol/L; Blood Urea Nitrogen 16 mg/dL (7-17); Calcium 8.6 mg/dL (8.4-10.2); Carbon Dioxide 27 mmol/L (22-30); Chloride 103 mmol/L (98-107); Glucose 88 mg/dL (74-99); Non-African American GFR(MDRD) >60 (>60 ml/min/1.73 sqM); Potassium 3.6 mmol/L (3.5-5.1); Sodium 135 mmol/L (137-145)
[2017-04-27] MEDS: FUROSEMIDE 20 MG TAB PO SCH (07:34)
[2017-04-27] MEDS: METOCLOPRAMIDE 10 MG TAB PO SCH ×3 (07:34→16:28)
[2017-04-27] MEDS: PANTOPRAZOLE 40 MG TABLET PO SCH (07:34)
[2017-04-27] MEDS: CEFEPIME 2 GM in SODIUM CHLORIDE 0.9% 50 ML IVPB SCH (07:35)
[2017-04-27] MEDS ORDERED: LIDOCAINE 2% INJ 20 MG/ML (20 ML MDV) ONE (08:56)
--- NOTE | 2017-04-27 10:05 | IR ---
EXAMINATION TYPE: IR cvc insert >=5 years DATE OF EXAM: 04/27/2017 COMPARISON: NONE CLINICAL HISTORY: Infection Needs long-term intravenous access for antibiotics. PROCEDURE: After informed consent, the skin overlying the left basilic vein was localized with ultrasound and no claudia to be compressible and patent. An ultrasound image was obtained and submitted on the patient's c patel. The overlying skin was prepped and draped and Lidocaine was used for local anesthesia. A skin alyssa was made with a scalpel. Access was gained to the vein under ultrasound guidance with a 21 gau ge needle and a 0.018 inch wire was advanced. Access site was dilated with Peel-Away sheath and cath eter tailored to the appropriate length and advanced such that the distal tip is at the cavoatrial ju nction. Spot image was obtained verifying placement. Catheter was fixed to the skin with suture and a sterile dressing was placed following hemostasis. Catheter was aspirated and flushed with saline. Patient was discharged in stable condition without complication. Maximal barrier technique is utili zed. Ultrasound image is documented on the chart. Ultrasound used with sterile technique. Fluoro time and fluoroscopic images submitted to document procedure: 27 intraoperative images, 0.2 mi nutes fluoroscopy time IMPRESSION: STATUS POST ULTRASOUND AND FLUOROSCOPIC GUIDED PICC LINE PLACEMENT, READY FOR USE. THIS PROCEDURE WAS PERFORMED BY THE UNDERSIGNED.
--- NOTE | 2017-04-27 11:06 | P.PN ---
Subjective Principal diagnosis: Acute septic shock from acute urinary tract infection This is a 66-year-old female with history of multiple medical problems including right leg flap surgery done about 8 weeks ago, and she continues to have some purulent drainage from the site of the surgery in the back of her thigh. Patient is also known to have history of rheumatoid arthritis, hypothyroidism, deep vein thrombosis, maintained on Xarelto, history of fibromyalgia, and history of decubitus ulcers. Patient had previous MRSA infection. Patient was brought into the ER mostly with multiple complaints including not feeling well, weakness, low-grade fever, and this has been going on for the last couple of days. Patient was also complaining of left flank pain and left lower quadrant pain, also noted to have thick discolored urine, bloody at times, and she does have a chronic indwelling Charles catheter. During her evaluation in the ER, patient was noted to be hypotensive she received 2 L of crystalloids, and she remained hypotensive hence at the right subclavian central line was placed, and patient was started on norepinephrine. She is presently on 20 mics of norepinephrine. Blood pressure seems to be stabilizing. She is also receiving her third liter of 0.9 normal saline. Improved significantly since admission but remains critically ill. Patient was also noted to have significant leukocytosis with WBC count of 28.3 elevated lactic acid of 2.9, repeat was 1.6 after fluid boluses. She was also noted to have significant pyuria and bacteriuria noted in her urinalysis. CT of abdomen and pelvis showed left sided diverticulosis, mild the left sided hydronephrosis with mid pelvic level calcifications, renal edema was noted, underlying infection is not excluded. There was also a 4 mm nonobstructing calculus, right horseshoe component lower pole. The patient herself is not the greatest historian, she had multiple vague complaints, but she had no clue how sick she was upon presentation. Patient was started on antibiotics in the form of Levaquin and vancomycin, (patient is ALLERGIC to penicillin). Patient was given fluid boluses she is presently on her third liter of crystalloid and she was placed on norepinephrine presently being titrated to a mean arterial pressure of 65 or higher. Chest x-ray is beginning to show mild central vascular congestion, and chronic parenchymal changes with basilar atelectasis, doubt infiltrates. Patient denied any headaches no blurred vision no dizziness. Denied any shortness of breath cough or wheezing. No nausea no vomiting, she did have abdominal pain mostly in the left lower quadrant, one episode of diarrhea yesterday, but no melena no hematemesis. Patient had a chronic indwelling Charles catheter. Denies any specific urinary symptoms. No dysuria, no frequency, no urgency. Again she does have left flank pain. Patient is known to have histories of severe rheumatoid arthritis used to see Dr. Hernandez and she was treated in the past with Arava. Patient was reevaluated today on 04/22/2017, doing much better compared to yesterday, hemodynamically stable, off norepinephrine. IV fluid is at 100 mL per hour. Patient has excellent urine output, her cultures of the blood came back negative for gram-negative bacilli, final identification is pending. In the meantime the patient seems to be on appropriate antibiotics. She is on Merrem and on vancomycin. I discontinued her hydrocortisone since the patient was not on maintenance dose of prednisone and the last one year. Patient is relatively asymptomatic, feeling much better today compared to how she felt yesterday upon presentation. Continues to have leukocytosis with WBC count of 32.8. Basic metabolic profile is normal. Renal profile showed BUN of 32 creatinine of 1.3 significantly improved compared to yesterday's labs. Patient denies any abdominal pain, no shortness of breath, her weakness seems to be even significantly improved. Patient was reevaluated today on 04/23/2017, continues to do well, however last night required the placement on norepinephrine again because of low blood pressure, however this was discontinued at 7 AM this morning. Overall the patient is doing better, relatively asymptomatic. WBC count is coming down to 23.0 from 32.8 on admission hemoglobin is 9.5 electrolytes and renal profile are normal. Significantly improved. Chest x-ray is showing left basilar atelectasis, no evidence of pneumonia at this time. Patient has no active pulmonary symptoms. Her cultures from the urine blood 1 were all reviewed, and her antibiotics are being addressed by Dr. Joya on the case. Patient was seen again today 04/24/2017 in follow-up on the regular medical floor. She is awake and alert in no acute distress. She has been hemodynamically stable. She remains on vancomycin and meropenem per ID services. She is currently afebrile. Maintaining good O2 saturations in the 90s on room air. Today's chest x-ray shows some mild fluid volume overload. Has been initiated on Lasix. Patient was reevaluated today on 04/25/2017, she has no active pulmonary symptoms , no cough no wheezing no shortness of breath, remains on antibiotics for her septic shock presentation as noted above. Patient remains on room air, and maintaining adequate saturations. Yesterday she was placed on Lasix. And seems to be working well for the patient. Basic metabolic profile today is normal. 04/26/2017 patient has a loose congested cough, nonproductive. He continues to oxygenate reasonably well 94-94% on room air. No wheezes, no rales. Lung sounds are coarse rhonchi scattered throughout the lung muñoz. She requires encouragement with her incentive spirometer. We Obtained follow-up chest x-ray today. He was reviewed with Dr. Rawls and actually shows improvement from the previous chest x-ray. Tiny bilateral effusions and basilar atelectasis or infiltrate present. No evidence of fluid overload. Patient continues to improve slowly. She is bedbound at home, we will consult physical therapy to help mobilize patient as tolerated. On 04/27/2017 patient is seen resting in bed, denies any distress. She is compliant with her incentive spirometer, she is able to achieve 1000 on it today. She remains bedbound. We'll elevate the head of the bed up to 30, and upright for meals. Continue to encourage pulmonary toileting. She is able to clear phlegm. Follow-up chest x-ray on 04/26/[address] has been reviewed [address] Dr. Rawls and showed no evidence of pneumonia or fluid overload. She received her PICC line in the left upper arm on 04/25/2017 and she is getting ready to be discharged to [facility] today or tomorrow. Objective - Vital Signs Vital signs: Vital Signs Temp 99.0 F 04/27/17 07:00 Pulse 77 04/27/17 07:00 Resp 18 04/27/17 07:00 BP 128/72 04/27/17 07:00 Pulse Ox 95 04/27/17 07:00 Intake & Output 04/26/17 04/27/17 04/27/17 18:59 06:59 18:59 Output Total 1000 1100 Balance -1000 -1100 Output: Urine 1000 1100 Other: Voiding Method Indwelling Catheter Indwelling Catheter Indwelling Catheter # Bowel Movements 2 1 - Exam Exam General appearance: Pleasant 66-year-old female, in no distress, presently on nasal cannula. Head exam: Normocephalic, atraumatic Eye exam: PERRLA, EOMI. No icterus. ENT exam: Clear throat, moist mucous membranes, nasal mucosa is intact. Neck exam: No stridor, no cervical lymphadenopathy, no thyromegaly. Respiratory exam: Diminished breath sounds and scattered rhonchi at the bases noted bilaterally. Cardiovascular Exam: Normal S1 and S2, no S3 gallop. No murmur. GI/Abdominal exam: Abdomen is soft, tenderness Mild epigastric tenderness. No rebound, no guarding. Extremities exam: (Right posterior leg flap clean and dry and intact and healing well except for the lower portion with less than 1 cm open area with mild purulent discharge. Neurological exam: No focal neurologic deficit Psychiatric exam: Present: normal affect, normal mood Skin exam: As noted above, draining wound on the posterior right leg. - Labs CBC & Chem 7: 04/27/17 04:43 04/27/17 04:43 Labs: Abnormal Lab Results - Last 24 Hours (Table) 04/26/17 04/27/17 04/27/17 Range/Units 07:08 04:43 04:43 RBC 3.32 L 3.51 L (3.80-5.40) m/uL Hgb 9.4 L 9.8 L (11.4-16.0) gm/dL Hct 30.8 L 31.8 L (34.0-46.0) % MCHC 30.5 L 30.9 L (31.0-37.0) g/dL Lymphocytes # 0.9 L (1.0-4.8) k/uL Sodium 135 L (137-145) mmol/L Microbiology - Last 24 Hours (Table) 04/24/17 08:01 Blood Culture - Preliminary Blood No Growth after 72 hours 04/24/17 07:27 Blood Culture - Preliminary Blood No Growth after 72 hours 04/26/17 12:50 Gram Stain - Preliminary Thigh - Right Wound Culture - Preliminary Assessment and Plan Plan: Assessment and Plan Plan: 1 acute septic shock secondary to urinary tract infection, wound infection and bacteremia. Blood cultures positive for Proteus mirabilis, wound culture positive for Proteus mirabilis, presumptive staph aureus, urine culture positive for Proteus mirabilis and Pseudomonas aeruginosa.. 2 suspect mild fluid overload, no clear-cut evidence of pneumonia on the chest x -ray, there is some basilar atelectasis. 3 acute right lower extremity cellulitis related to recent surgical flap and ongoing purulent drainage from the surgical site could also be another source of infection and sepsis. 4 history of deep vein thrombosis 5 history of rheumatoid arthritis 6 history of hypothyroidism 7 history of previous MRSA infection. 8 history of chronic indwelling Charles catheter. 9 history of fibromyalgia 10 acute kidney injury related to sepsis. 11 acute gram-negative bacteremia from different sources Plan: Continue present treatment plan, continue antibiotics, follow the recommendations of infectious disease on the case regarding antibiotics and length of treatment. No active pulmonary issues noted today. chest X-ray has been reviewed shows no signs of fluid overload. Encourage incentive spirometer. Mobilize the patient with physical therapy as tolerated. The patient remains hemodynamically stable on a regular medical floor. Stable for discharge to subacute rehab from pulmonary standpoint. I performed a history & physical examination of the patient and discussed their management with my nurse practitioner, Alberta Euceda. I reviewed the nurse practitioner's note and agree with the documented findings and plan of care.
--- NOTE | 2017-04-27 11:10 | P.DS ---
Providers Date of admission: 04/21/17 13:57 Expected date of discharge: 04/27/17 Attending physician: Janes Wilkins MD Consults: 04/21/17 13:56 Consult Physician Stat Consulting Provider: Phuc Metz Consult Reason/Comments: critical care Do you want consulting provider notified?: Already Contacted 04/21/17 15:40 Consult Physician Routine Consulting Provider: Drew Mercedes Consult Reason/Comments: hydronephrosis Do you want consulting provider notified?: Yes 04/22/17 09:43 Consult Physician Routine Consulting Provider: Linden Joya Consult Reason/Comments: gram negative bacteremia Do you want consulting provider notified?: Yes 04/26/17 10:55 Consult Physician Routine Consulting Provider: April Perrin Consult Reason/Comments: hx flap px, clearance for PT Do you want consulting provider notified?: Yes Primary care physician: Cierra Moyer [facility] Course: 66 years old female patient of Dr. Moyer with past medical history of right leg flap surgery done about 8 weeks ago, history of rheumatoid arthritis, hypothyroidism, DVT 1 year ago on , history of fibromyalgia, history of decubitus ulcer, previous MRSA infection presents today with worsening abdominal pain for the past 4 days that started on the left side and moved to her right low quadrant, associated with chills and feeling of warmth, generalized weakness. Patient denies any history of chest pain, shortness of breath, hematemesis, melena or vomiting. Patient was just discharged from [facility] one week ago after undergoing treatment for wound infection around the right leg flap surgery. Patient stated she was on wound VAC for epidural time before switching to silver sulfadiazine by the wound care nurse. Drain was removed one week ago. In the ED patient received 2 L of fluid but remained hypotensive and hence admitting to the ICU. Patient was started on norepinephrine. Patient lactic acid on admission was 2.9 which improved to 1.6 after fluid resuscitation, WBC 28.3 with urinalysis suggestive of infection patient was covered with vancomycin and Levaquin. Blood cultures and urine cultures were sent. Chest x- ray done in the ED suggested some mild intravascular congestion with though CT abdomen and pelvis showed left-sided diverticulosis, with mild left-sided hydronephrosis and pelvic calcification, a 4 mm nonobstructing calculus was also seen in the lower pole. 04/22: Patient remains in the intensive care unit. She is followed by Dr. Early for intensive care management. Patient is status post fluid bolus and is currently on IV antibiotics in form of Levaquin and vancomycin. Ultrasound bilateral lower extremities negative for DVT. Repeat chest x-ray showed bilateral infiltrate greater on the left appears stable. Cannot exclude mild venous congestion. Patient has been seen by Dr. Mercedes and he does not feel that the patient has a left ureteral calculus at this time and recommends further observation as long as patient's renal function continues to improve. Patient's white count is up to 32.8. BUN is 32 and creatinine 1.3 which is improved from yesterday of 34 and 1.9. Patient has a positive blood culture gram-negative bacilli. Wound culture (right thigh) and urine culture in progress. Patient is currently off norepinephrine. Repeat blood cultures will be requested and ID consult placed with Dr. Joya and he has placed the patient on meropenem versus Levaquin. Patient's Charles catheter has been changed on this admission. 04/23: Patient remains in intensive care unit has been cleared for transfer to monitored floor with telemetry by Dr. Early. Patient was back on norepinephrine last night but this was discontinued before the day shift today. Patient feels like she needs to have a bowel movement and having some discomfort in her abdomen. Lactulose has been added. Initial blood culture is showing Proteus species and otherwise cultures are in progress. Repeat blood cultures obtained on April 22 are also positive and repeat blood culture will be ordered for the morning. Patient's home [place] dose will be resumed as she is complaining of generalized arthritic pain 04/24: Patient was evaluated today. She is noted to be resting comfortably in bed, in no acute distress. She continues on her IV vancomycin and meropenem, and continues to be followed by infectious disease. Blood cultures positive for Proteus mirabilis, wound cultures also positive for Proteus mirabilis, urine cultures positive for Proteus mirabilis and Pseudomonas aeruginosa. She had a repeat chest x-ray that did show some mild fluid overload, IV fluids were discontinued and IV Lasix started. Incentive spirometer was also ordered. 04/25: Patient was evaluated today, she is noted to be resting comfortably in bed , in no acute distress. She does complain of some nausea, IV Zofran and GI cocktail were ordered. Patient noted to have some fluid overload on her repeat chest x-ray yesterday, IV Lasix were given, echocardiogram ordered, and is pending. Patient will most likely need subacute rehab upon discharge. Discharge may be complicated due to the fact that she recently had a short stay at a [facility] and insurance may not approve another stay. manager behavioral was consulted. 04/26: Patient complains still having a cough. She denies any nausea. She is having loose stools 3 episodes yesterday and 2 this morning. Stool is sent for C. diff toxin. Abdominal x-ray and chest x-ray have been ordered. Consult with general surgeon regarding whether patient can stop bed rest and participate in PT. Bed rest was ordered by her plastic surgeon after the flap surgery. General surgeon has ordered a CAT scan of the right lower extremity which shows cellulitis. PICC line insertion has been ordered. Dr. Joya is following for antibiotics. manager behavioral and social work working with the patient regarding discharge plan which hopefully will be [facility] in the next 24- 48 hours. 04/27: General surgeon has signed off the patient's case with recommendations to follow-up with Dr. Quezada. Dr. Joya as recommended cephapirin 2 g every 12 hours for 14 days. Patient is complaining of diarrhea and lactulose was discontinued and Imodium started. C. difficile toxin was negative. Patient will be discharged to [facility] today in stable condition. Discharge Diagnoses: #1 septic shock secondary to Charles catheter associated urinary tract infection and pyelonephritis with Proteus bacteremia, septicemia. #2 history of DVT- on xarelto for 1 year #3 history of rheumatoid arthritis- stable #4 history of hypothyroidism #5 history of MRSA infection #6 chronic indwelling Charles catheter which has been changed on this admission #7 acute kidney injury likely secondary to sepsis- Discharge plan: [facility] under the care of Dr. Moyer Impression and plan of care have been directed as dictated by the signing physician. Arlene Darnell nurse practitioner acting as scribe for signing physician. Patient Condition at Discharge: Good Plan - Discharge Summary New Discharge Prescriptions: New Cefepime HCl [Maxipime] 2 gm IV Q12H #28 vial Furosemide [Lasix] 20 mg PO DAILY tab guaiFENesin [Mucinex] 600 mg PO Q12HR #20 tablet.er Loperamide [Imodium] 2 mg PO QID PRN #30 capsule PRN Reason: Diarrhea Metoclopramide [Reglan] 10 mg PO AC-TID tab Pantoprazole [Protonix] 40 mg PO AC-BRKFST tab Continue Rivaroxaban [Xarelto] 15 mg PO DAILY Pregabalin [Lyrica] 100 mg PO BID Levothyroxine Sodium [Synthroid] 200 mcg PO DAILY Multivitamin/Iron/Folic Acid [Centrum Complete Multivit Tab] 1 tab PO DAILY Leflunomide [Arava] 20 mg PO DAILY Ferrous Sulfate [Feosol] 325 mg PO DAILY Ascorbic Acid [Vitamin C] 500 mg PO DAILY Ergocalciferol [Vitamin D2 (DRISDOL)] 50,000 unit PO Q7D fentaNYL 25MCG/HR PATCH [Duragesic 25MCG/HR] 50 mcg TRANSDERM Q72H #10 patch HYDROcodone/APAP 10-325MG [[place] 10-325] 1 tab PO Q6H PRN #90 tab PRN Reason: Pain Discharge Medication List Leflunomide [Arava] 20 mg PO DAILY 12/04/15 [History] Levothyroxine Sodium [Synthroid] 200 mcg PO DAILY 12/04/15 [History] Multivitamin/Iron/Folic Acid [Centrum Complete Multivit Tab] 1 tab PO DAILY 06/10 [History] Pregabalin [Lyrica] 100 mg PO BID 12/04/15 [History] Rivaroxaban [Xarelto] 15 mg PO DAILY 12/04/15 [History] Ferrous Sulfate [Feosol] 325 mg PO DAILY 02/04/16 [History] Ascorbic Acid [Vitamin C] 500 mg PO DAILY 05/12/16 [History] Ergocalciferol [Vitamin D2 (DRISDOL)] 50,000 unit PO Q7D 04/21/17 [History] Cefepime HCl [Maxipime] 2 gm IV Q12H #28 vial 04/27/17 [Rx] Furosemide [Lasix] 20 mg PO DAILY tab 04/27/17 [Rx] HYDROcodone/APAP 10-325MG [[place] 10-325] 1 tab PO Q6H PRN #90 tab 04/27/17 [Rx] Loperamide [Imodium] 2 mg PO QID PRN #30 capsule 04/27/17 [Rx] Metoclopramide [Reglan] 10 mg PO AC-TID tab 04/27/17 [Rx] Pantoprazole [Protonix] 40 mg PO AC-BRKFST tab 04/27/17 [Rx] fentaNYL 25MCG/HR PATCH [Duragesic 25MCG/HR] 50 mcg TRANSDERM Q72H #10 patch 10/09 [Rx] guaiFENesin [Mucinex] 600 mg PO Q12HR #20 tablet.er 04/27/17 [Rx] Follow up Appointment(s)/Referral(s): Cierra Moyer MD [Primary Care Provider] - 1 Week (at [facility]) Discharge Disposition: TRANSFER TO SNF/ECF
[2017-04-27] MEDS ORDERED: LOPERAMIDE 2 MG CAP PO STA (11:19)
--- NOTE | 2017-04-27 12:26 | P.PN ---
Progress Note - Text 66-year-old female seen this morning just returned from having a PICC line placed. Surgical service requested for consultation yesterday to evaluate the skin flap on the right thigh that was done 8 weeks prior by plastic surgeon Dr. schafer There is no further surgical recommendations at this time would continue to recommend the patient to follow-up with her plastic surgeon Dr. schafer. Patient is felt to be appropriate to proceed with a PT OT eval and increase activity Plan is for the patient to be transferred to [facility] rehab. Followed up on the CAT scan of the right lower extremity that was ordered yesterday it shows cellulitis. The above impression and plan of care have been discussed and directed by signing physician. Tiffany Jason nurse practitioner acting as scribe for signing physician.
[2017-04-27 13:14] VITALS: BMI 31.9
[2017-04-27 15:23] VITALS: BP 109/57; PULSE 87; RESP 16; TEMP 98.9
[2017-04-27] MEDS: HYDROcodone/APAP 10-325MG 1 EACH TAB PO PRN (16:28)
== END 2017-04-27 18:07 | DRG 698 ==
LOC: EC 09:48 → 6ICU 13:57 → 4MS4W 04-23 20:29
PROVIDERS: ADMIT Internal Medicine; ATTEND Internal Medicine
PROC: 05H533Z Insertion of Infusion Device into Right Subclavian Vein, Percutaneous Approach (ICD-10-PCS; 2017-04-21)
PROC: 02HV33Z Insertion of Infusion Device into Superior Vena Cava, Percutaneous Approach (ICD-10-PCS; principal; 2017-04-27 09:03)
DX: T83.511A Infection and inflammatory reaction due to indwelling urethral catheter, initial encounter (principal); A41.50 Gram-negative sepsis, unspecified; R65.21 Severe sepsis with septic shock; L89.314 Pressure ulcer of right buttock, stage 4; L89.893 Pressure ulcer of other site, stage 3; N17.9 Acute kidney failure, unspecified; N13.6 Pyonephrosis; L03.115 Cellulitis of right lower limb; J98.11 Atelectasis; T81.4XXA Infection following a procedure, initial encounter; E87.70 Fluid overload, unspecified; N15.9 Renal tubulo-interstitial disease, unspecified; B96.4 Proteus (mirabilis) (morganii) as the cause of diseases classified elsewhere; E03.9 Hypothyroidism, unspecified; K57.90 Diverticulosis of intestine, part unspecified, without perforation or abscess without bleeding; M06.9 Rheumatoid arthritis, unspecified; M79.7 Fibromyalgia; N21.1 Calculus in urethra; Q63.1 Lobulated, fused and horseshoe kidney; N32.81 Overactive bladder; R05 Cough; Z74.01 Bed confinement status; Z79.01 Long term (current) use of anticoagulants; Z79.899 Other long term (current) drug therapy; Z86.14 Personal history of Methicillin resistant Staphylococcus aureus infection; Z87.442 Personal history of urinary calculi; Z88.0 Allergy status to penicillin; Y84.6 Urinary catheterization as the cause of abnormal reaction of the patient, or of later complication, without mention of misadventure at the time of the procedure
CPT/HCPCS: 36415; 36556; 36569; 51702; 71010; 74000; 74176; 76937; 77001; 80048; 80053; 80202; 81001; 82533; 82553; 83605; 83735; 84100; 84484; 85025; 85610; 85730; 87040; 87070; 87077; 87086; 87186; 87205; 87324; 93005; 93306; 93970; 96365; 96366; 96367; 96368; 96375; 99291

== ENCOUNTER → 2017-09-02 | Outpatient (CLI) | payer MEDICARE ==
--- NOTE | 2017-09-02 15:34 | US ---
EXAMINATION TYPE: US venous doppler duplex LE BI DATE OF EXAM: 09/02/2017 2:07 PM COMPARISON: LOWER EXTREMITY VENOUS INSUFFICIENCY SIDE PERFORMED: Bilateral Comparison: Bilateral lower extremity venous ultrasound April 21, 2017. 1) Color flow is present and patency is documented in the following vessels. No DVT or SVT is noted . EIV Common Femoral Vein Deep Femoral Vein Femoral Vein Popliteal Vein Proximal Calf Veins Greater Saph Vein Upper Small Saph Vein 2) There is venous reflux noted at the following venous levels: Right: Greater Saph Vein Left: Common Femoral Vein Femoral Vein Popliteal Vein Proximal Calf Veins Upper Small Saph Vein IMPRESSION: No acute DVT is seen in either lower extremity. Left greater than right venous reflux was noted during real-time scanning as detailed above.
== END | disposition home or self-care (01) ==
LOC: RADUSWWP 13:23
PROVIDERS: ATTEND Family Medicine
DX: I87.2 Venous insufficiency (chronic) (peripheral) (principal)
CPT/HCPCS: 93923; 93970

== ENCOUNTER → 2018-03-17 | Outpatient (CLI) | payer MEDICARE ==
--- NOTE | 2018-03-17 11:38 | XR ---
EXAMINATION TYPE: XR tibia fibula RT DATE OF EXAM: 03/17/2018 COMPARISON: NONE HISTORY: Nonhealing leg wound TECHNIQUE: Two views are submitted. FINDINGS: Severe arthropathy of the knee joint. Diffuse osteopenia. Extensive soft tissue calcifications. No ov ertly destructive change. No acute fracture. IMPRESSION: 1. Arthropathy and diffuse osteopenia but no diagnostic evidence of destructive change.
== END | disposition home or self-care (01) ==
LOC: RADXRMAIN 09:48
PROVIDERS: ATTEND Family Medicine
DX: M85.861 Other specified disorders of bone density and structure, right lower leg (principal); M12.88 Other specific arthropathies, not elsewhere classified, other specified site; S89.91XA Unspecified injury of right lower leg, initial encounter

== ENCOUNTER 2019-02-17 18:05 | Inpatient (IN) | payer MEDICARE ==
--- NOTE | 2019-02-17 18:37 | ED ---
GI Bleed HPI - General Chief complaint: GI Bleed Stated complaint: GI Bleed Time Seen by Provider: 02/17/19 18:11 Source: patient, EMS, RN notes reviewed Mode of arrival: EMS Limitations: no limitations - History of Present Illness Initial comments: Is a 68-year-old female who presents with plans of dark black stool and weakness. She was sent in for evaluation she has no prior history of GI bleeding - Related Data Home Medications Medication Instructions Recorded Confirmed Ascorbic Acid [Vitamin C] 500 mg PO DAILY 08/26/17 02/17/19 Cyanocobalamin (Vitamin B-12) 1,000 mcg PO DAILY 08/26/17 02/17/19 [Vitamin B-12] Ferrous Sulfate [Iron] 325 mg PO DAILY 08/26/17 02/17/19 Hydrocodone/Acetaminophen 1 tab PO QID PRN 08/26/17 02/17/19 [Hydrocodon-Acetaminophn 10-325] Leflunomide [Arava] 20 mg PO DAILY 08/26/17 02/17/19 Levothyroxine Sodium [Synthroid] 200 mcg PO DAILY 08/26/17 02/17/19 Multivitamins, Thera [Multivitamin 1 tab PO DAILY 08/26/17 02/17/19 (formulary)] Pregabalin [Lyrica] 100 mg PO BID 08/26/17 02/17/19 Rivaroxaban [Xarelto] 20 mg PO DAILY 08/26/17 02/17/19 fentaNYL 12MCG/HR PATCH [Duragesic 12 mcg TRANSDERM Q72H 08/26/17 02/17/19 12MCG/HR] fentaNYL 25MCG/HR PATCH [Duragesic 25 mcg TRANSDERM Q72H 08/26/17 02/17/19 25MCG/HR] Allergies Allergy/AdvReac Type Severity Reaction Status Date / Time Penicillins Allergy Rash/Hives Verified 02/17/19 18:45 Review of Systems ROS Statement: Those systems with pertinent positive or pertinent negative responses have been documented in the HPI. ROS Other: All systems not noted in ROS Statement are negative. Past Medical History Past Medical History: Deep Vein Thrombosis (DVT), Fibromyalgia, Rheumatoid Arthritis (RA), Skin Disorder, Thyroid Disorder Additional Past Medical History / Comment(s): "LEAKY BLADDER" , "POOR CIRCULATION", HX Wound rt foot 3rd toe, bunion on left foot, PAST RT HIP FX-NO SX DONE. History of Any Multi-Drug Resistant Organisms: MRSA Date of last positivie culture/infection: 02/17/18 MDRO Source:: leg Past Surgical History: Appendectomy, Cholecystectomy, Tonsillectomy Additional Past Surgical History / Comment(s): left foot wound debridement. nodule removed from thyroid. sinus surgery. surgical excision and debridment of sacrum with wound VAC placement on 08/05/15 and sx done(flap) that developed pin hole leak -had 2nd sx to repair". debridement wound care to right lower extremity wound on 08/21/15. Past Anesthesia/Blood Transfusion Reactions: No Reported Reaction Past Psychological History: No Psychological Hx Reported Smoking Status: Never smoker Past Alcohol Use History: None Reported Past Drug Use History: None Reported - Past Family History Mother Family Medical History: AFIB, Cancer Additional Family Medical History / Comment(s): still living at age 91. skin c ancer Father Family Medical History: Liver Disease, Rheumatoid Arthritis (RA) Additional Family Medical History / Comment(s): leukemia. at age 72 of liver problem. General Exam - General Exam Comments Initial Comments: Is a well-developed sec appearing female who does appear to be pale she is awake alert oriented 3 Limitations: no limitations General appearance: alert, cachectic Head exam: Present: atraumatic, normocephalic, normal inspection Eye exam: Present: PERRL, EOMI, other (Pale conjunctiva). Absent: scleral icterus, conjunctival injection, periorbital swelling ENT exam: Present: normal exam, mucous membranes moist Neck exam: Present: normal inspection. Absent: tenderness, meningismus, lymphadenopathy Respiratory exam: Present: normal lung sounds bilaterally. Absent: respiratory distress, wheezes, rales, rhonchi, stridor Cardiovascular Exam: Present: normal rhythm, tachycardia, normal heart sounds. Absent: systolic murmur, diastolic murmur, rubs, gallop, clicks GI/Abdominal exam: Present: soft, normal bowel sounds. Absent: distended, tenderness, guarding, rebound, rigid Rectal exam: Present: heme (+) stool, black stool, other (Rectal exam no masses no hemorrhoids noted.) Extremities exam: Present: full ROM, normal capillary refill, other (Once both lower extremities and various stages of healing). Absent: tenderness, pedal edema, joint swelling, calf tenderness Back exam: Present: normal inspection Neurological exam: Present: alert, oriented X3, CN II-XII intact Psychiatric exam: Present: normal affect, normal mood Skin exam: Present: warm, dry, intact, pallor. Absent: normal color, rash Course Vital Signs 02/17/19 02/17/19 18:09 19:33 Temperature 98 F 98.2 F Pulse Rate 101 H 93 Respiratory 18 17 Rate Blood Pressure 108/55 111/63 O2 Sat by Pulse 100 98 Oximetry - Reevaluation(s) Reevaluation #1: 02/17/19 20:07 Evaluation patient reveals no change not feeling any better nothing really worse. Medical Decision Making - Medical Decision Making I did discuss findings with Dr. Wilson as well as with the patient family patient be admitted with GI consultation. - Lab Data Result diagrams: 02/17/19 18:31 02/17/19 18:31 Lab Results 02/17/19 02/17/19 02/17/19 Range/Units 18:16 18:18 18:31 WBC 8.1 (3.8-10.6) k/uL RBC 3.17 L (3.80-5.40) m/uL Hgb 8.3 L D (11.4-16.0) gm/dL Hct 27.1 L (34.0-46.0) % MCV 85.5 (80.0-100.0) fL MCH 26.0 (25.0-35.0) pg MCHC 30.4 L (31.0-37.0) g/dL RDW 15.8 H (11.5-15.5) % Plt Count 357 (150-450) k/uL Neutrophils % 83 % Lymphocytes % 10 % Monocytes % 4 % Eosinophils % 1 % Basophils % 0 % Neutrophils # 6.7 (1.3-7.7) k/uL Lymphocytes # 0.8 L (1.0-4.8) k/uL Monocytes # 0.4 (0-1.0) k/uL Eosinophils # 0.1 (0-0.7) k/uL Basophils # 0.0 (0-0.2) k/uL Hypochromasia Moderate PT (9.0-12.0) sec INR (<1.2) APTT (22.0-30.0) sec Sodium (137-145) mmol/L Potassium (3.5-5.1) mmol/L Chloride (98-107) mmol/L Carbon Dioxide (22-30) mmol/L Anion Gap mmol/L BUN (7-17) mg/dL Creatinine (0.52-1.04) mg/dL Est GFR (CKD-EPI)AfAm (>60 ml/min/1.73 sqM) Est GFR (CKD-EPI)NonAf (>60 ml/min/1.73 sqM) Glucose (74-99) mg/dL Calcium (8.4-10.2) mg/dL Magnesium (1.6-2.3) mg/dL Total Bilirubin (0.2-1.3) mg/dL AST (14-36) U/L ALT (9-52) U/L Alkaline Phosphatase (38-126) U/L Creatine Kinase (30-135) U/L Troponin I (0.000-0.034) ng/mL Total Protein (6.3-8.2) g/dL Albumin (3.5-5.0) g/dL Stool Occult Blood (Negative) Blood Type B Positive Blood Type Confirm B Positive Blood Type Recheck CABO Indicated Antibody Screen NEGATIVE Spec Expiration Date 02/20/2019 - 231702/17/19 02/17/19 02/17/19 Range/Units 18:31 18:31 18:31 WBC (3.8-10.6) k/uL RBC (3.80-5.40) m/uL Hgb (11.4-16.0) gm/dL Hct (34.0-46.0) % MCV (80.0-100.0) fL MCH (25.0-35.0) pg MCHC (31.0-37.0) g/dL RDW (11.5-15.5) % Plt Count (150-450) k/uL Neutrophils % % Lymphocytes % % Monocytes % % Eosinophils % % Basophils % % Neutrophils # (1.3-7.7) k/uL Lymphocytes # (1.0-4.8) k/uL Monocytes # (0-1.0) k/uL Eosinophils # (0-0.7) k/uL Basophils # (0-0.2) k/uL Hypochromasia PT 13.3 H (9.0-12.0) sec INR 1.3 H (<1.2) APTT 32.2 H (22.0-30.0) sec Sodium 140 (137-145) mmol/L Potassium 4.8 (3.5-5.1) mmol/L Chloride 107 (98-107) mmol/L Carbon Dioxide 25 (22-30) mmol/L Anion Gap 8 mmol/L BUN 56 H (7-17) mg/dL Creatinine 0.91 (0.52-1.04) mg/dL Est GFR (CKD-EPI)AfAm 74 (>60 ml/min/1.73 sqM) Est GFR (CKD-EPI)NonAf 64 (>60 ml/min/1.73 sqM) Glucose 116 H (74-99) mg/dL Calcium 9.2 (8.4-10.2) mg/dL Magnesium 1.9 (1.6-2.3) mg/dL Total Bilirubin 0.4 (0.2-1.3) mg/dL AST 19 (14-36) U/L ALT 15 (9-52) U/L Alkaline Phosphatase 117 (38-126) U/L Creatine Kinase 38 (30-135) U/L Troponin I (0.000-0.034) ng/mL Total Protein 5.8 L (6.3-8.2) g/dL Albumin 2.9 L (3.5-5.0) g/dL Stool Occult Blood Positive H (Negative) Blood Type Blood Type Confirm Blood Type Recheck Antibody Screen Spec Expiration Date 02/17/19 Range/Units 18:31 WBC (3.8-10.6) k/uL RBC (3.80-5.40) m/uL Hgb (11.4-16.0) gm/dL Hct (34.0-46.0) % MCV (80.0-100.0) fL MCH (25.0-35.0) pg MCHC (31.0-37.0) g/dL RDW (11.5-15.5) % Plt Count (150-450) k/uL Neutrophils % % Lymphocytes % % Monocytes % % Eosinophils % % Basophils % % Neutrophils # (1.3-7.7) k/uL Lymphocytes # (1.0-4.8) k/uL Monocytes # (0-1.0) k/uL Eosinophils # (0-0.7) k/uL Basophils # (0-0.2) k/uL Hypochromasia PT (9.0-12.0) sec INR (<1.2) APTT (22.0-30.0) sec Sodium (137-145) mmol/L Potassium (3.5-5.1) mmol/L Chloride (98-107) mmol/L Carbon Dioxide (22-30) mmol/L Anion Gap mmol/L BUN (7-17) mg/dL Creatinine (0.52-1.04) mg/dL Est GFR (CKD-EPI)AfAm (>60 ml/min/1.73 sqM) Est GFR (CKD-EPI)NonAf (>60 ml/min/1.73 sqM) Glucose (74-99) mg/dL Calcium (8.4-10.2) mg/dL Magnesium (1.6-2.3) mg/dL Total Bilirubin (0.2-1.3) mg/dL AST (14-36) U/L ALT (9-52) U/L Alkaline Phosphatase (38-126) U/L Creatine Kinase (30-135) U/L Troponin I <0.012 (0.000-0.034) ng/mL Total Protein (6.3-8.2) g/dL Albumin (3.5-5.0) g/dL Stool Occult Blood (Negative) Blood Type Blood Type Confirm Blood Type Recheck Antibody Screen Spec Expiration Date - EKG Data -: EKG Interpreted by [facility] EKG shows normal: sinus rhythm (Sinus rhythm a 92. Interval 176 QRS duration 80 QT since QTC 346/[address] configuration) - Radiology Data Radiology results: report reviewed (Imaging reviewed no definite acute findings.), image reviewed Disposition Clinical Impression: Melena, Upper GI bleeding Disposition: ADMITTED IP TO THIS [facility] Condition: Fair Referrals: Cierra Moyer MD [Primary Care Provider] - 1-2 days
[2019-02-17 19:05] LABS: INR 1.3 (<1.2); Partial Thromboplastin Time 32.2 sec (22.0-30.0); Prothrombin Time 13.3 sec (9.0-12.0)
[2019-02-17 19:09] LABS: Albumin 2.9 g/dL (3.5-5.0); Calcium 9.2 mg/dL (8.4-10.2); Magnesium 1.9 mg/dL (1.6-2.3); Potassium 4.8 mmol/L (3.5-5.1); Total Bilirubin 0.4 mg/dL (0.2-1.3); Total Protein 5.8 g/dL (6.3-8.2)
--- NOTE | 2019-02-17 19:10 | XR ---
EXAMINATION: XR chest 2V DATE AND TIME: 02/17/2019 7:05 PM CLINICAL INDICATION: GI bleed for a few hours with dark stool and nausea; pain TECHNIQUE: AP and lateral COMPARISON: 04/26/2017 FINDINGS: The lungs are clear and well-expanded. However, a subtle coarse reticular pattern of increased densit y is redemonstrated throughout the lungs, likely chronic interstitial lung change. The pleural spaces are negative. The cardiac silhouette is laterally enlarged; remainder of the mediastinal silhouette is unremarkable . The skeletal structures and soft tissues are negative for acute findings. IMPRESSION: No acute process.
--- NOTE | 2019-02-17 19:13 | XR ---
EXAMINATION TYPE: XR abdomen 2V DATE OF EXAM: 02/17/2019 COMPARISON: 04/26/2017 HISTORY: Pain, GI bleed for a few hours with dark stool and nausea TECHNIQUE: Upright abdominal radiograph and supine pelvic radiograph. FINDINGS: There is mild distention of the stomach with gas. There is no pneumoperitoneum or pneumatos is. The bowel gas pattern shows mild dilation of several loops of bowel extending from the left upper quadrant to the mid abdomen to the upper pelvis. Gas is not demonstrated within the colon. No definite acute skeletal or soft tissue findings. However, severe architectural distortion of the left hip is seen, due to long-standing [id number] o steoarthritis. Moderate right hip osteoarthritis is seen. IMPRESSION: Abnormal bowel gas pattern; further characterization of the abdomen and pelvis, utilizing oral contrast and IV contrast, is suggested for consideration.
[2019-02-17 19:14] LABS: Basophils % (A) 0 %; Eosinophils # (A) 0.1 k/uL (0-0.7); Eosinophils % (A) 1 %; HCT 27.1 % (34.0-46.0); Hypochromasia Moderate; Lymphocytes # (A) 0.8 k/uL (1.0-4.8); Lymphocytes % (A) 10 %; MCHC 30.4 g/dL (31.0-37.0); MCV 85.5 fL (80.0-100.0); Mean Platelet Volume 7.7; Monocytes # (A) 0.4 k/uL (0-1.0); Monocytes % (A) 4 %; Neutrophils # (A) 6.7 k/uL (1.3-7.7); Neutrophils % (A) 83 %; Platelet Count 357 k/uL (150-450); RBC 3.17 m/uL (3.80-5.40); RDW 15.8 % (11.5-15.5); WBC 8.1 k/uL (3.8-10.6)
[2019-02-17 19:16] LABS: HGB 8.3 gm/dL (11.4-16.0)
[2019-02-17] MEDS ORDERED: HYDROcodone/APAP 10-325MG 1 EACH TAB PO ONE (19:36)
[2019-02-17] MEDS ORDERED: NALOXONE 0.4 MG/ML 1 ML VIAL IV PRN (20:12)
[2019-02-17] MEDS ORDERED: ACETAMINOPHEN TAB 325 MG TAB PO PRN (20:12)
[2019-02-17] MEDS: PREGABALIN 100 MG CAP PO SCH (22:29)
[2019-02-17] MEDS: PANTOPRAZOLE 40 MG/10 ML VIAL IV SCH (22:30)
[2019-02-17] MEDS: SODIUM CHLORIDE 0.9% 1,000 ML IV SCH (22:30)
[2019-02-18 04:20] LABS: HCT 22.7 % (34.0-46.0); Hypochromasia Marked; MCH 25.8 pg (25.0-35.0); MCHC 29.9 g/dL (31.0-37.0); MCV 86.3 fL (80.0-100.0); Mean Platelet Volume 7.4; Platelet Count 353 k/uL (150-450); RBC 2.63 m/uL (3.80-5.40); RDW 15.9 % (11.5-15.5); WBC 9.5 k/uL (3.8-10.6)
[2019-02-18 04:38] LABS: HGB 6.8 gm/dL (11.4-16.0)
[2019-02-18] MEDS: HYDROcodone/APAP 10-325MG 1 EACH TAB PO PRN ×3 (04:56→23:28)
[2019-02-18] MEDS: LEVOTHYROXINE 100 MCG TAB PO SCH (05:49)
[2019-02-18] MEDS ORDERED: FUROSEMIDE 10 MG/ML 2 ML VIAL IV ONE (06:00)
[2019-02-18] MEDS: FERROUS SULFATE 325 MG TAB PO SCH (08:32)
[2019-02-18] MEDS: CYANOCOBALAMIN 500 MCG TAB PO SCH (08:32)
[2019-02-18] MEDS: MULTIVITAMINS, THERA 1 EACH TAB PO SCH (08:32)
[2019-02-18] MEDS: PREGABALIN 100 MG CAP PO SCH ×2 (08:32→20:52)
[2019-02-18] MEDS: PANTOPRAZOLE 40 MG/10 ML VIAL IV SCH ×2 (08:32→20:52)
[2019-02-18] MEDS: LEFLUNOMIDE 20 MG TAB PO SCH (09:40)
[2019-02-18] MEDS: SODIUM CHLORIDE 0.9% 1,000 ML IV SCH (09:40)
[2019-02-18] MEDS: ASCORBIC ACID 500 MG TAB PO SCH (09:40)
[2019-02-18 16:07] VITALS: BMI 33.2
--- NOTE | 2019-02-18 20:24 | P.HPIM ---
History of Present Illness H&P Date: 02/18/19 Chief Complaint: Melanocytic stools 68 years old female patient of Dr. Moyer with past medical history of history of rheumatoid arthritis, hypothyroidism, DVT 1 year ago on 02, history of fibromyalgia, history of decubitus ulcer, previous MRSA infection presents today secondary to dark melena stools, 4 times in the past 24 hours, patient has had symptoms for the past 24 hours coming in from home. She has had recent vascular surgery, for venous stasis ulcers, [address] Martin, and was recommended to have Aleve to control her pain, she is on eliquuist, she took 1 pill of Aleve, and nothing thereafter. She presents with epigastric abdominal pain, no nausea, no vomiting, patient denies any history of EGD or baseline colonoscopy in the past. She comes in with shortness of breath increasing fatigue Review of Systems Constitutional: Reports as per HPI, Reports fatigue, Reports malaise, Reports weakness, Denies anorexia, Denies chills, Denies chronic headaches, Denies chronic pain, Denies daytime sleepiness, Denies fever, Denies lethargy, Denies night sweats, Denies poor appetite, Denies sweats, Denies weight gain, Denies weight loss Ears, nose, mouth and throat: Reports as per HPI, Denies ant. neck pain, Denies bleeding gums, Denies dental pain, Denies dysphagia, Denies epistaxis, Denies headache, Denies hoarseness, Denies mouth pain, Denies nasal congestion, Denies nasal discharge, Denies neck fullness/pressure, Denies neck lump, Denies nose pain, Denies odynophagia, Denies post-nasal drip, Denies sinus pain, Denies sinus pressure, Denies swelling in mouth, Denies swelling in throat, Denies sore throat, Denies vertigo, Denies voice changes Cardiovascular: Reports as per HPI, Denies chest pain, Denies claudication, Denies decreased exercise tolerance, Denies dyspnea on exertion, Denies edema, Denies high blood pressure, Denies irregular heart beat, Denies leg edema, Denies lightheadedness, Denies orthopnea, Denies palpitations, Denies paroxysmal nocturnal dyspnea, Denies phlebitis, Denies rapid heart beat, Denies shortness of breath, Denies syncope Respiratory: Reports as per HPI, Denies congestion, Denies cough, Denies cough with sputum, Denies dyspnea, Denies excessive sputum, Denies hemoptysis, Denies home oxygen, Denies pain, Denies pain on inspiration, Denies pleurisy, Denies respiratory infections, Denies sleep apnea, Denies snoring, Denies wheezing Gastrointestinal: Reports as per HPI, Reports dyspepsia, Reports early satiety, Reports melena, Reports nausea Genitourinary: Reports as per HPI, Denies abnormal vaginal bleeding, Denies dec reased libido, Denies difficulty conceiving, Denies difficulty voiding, Denies dysmenorrhea, Denies dyspareunia, Denies dysuria, Denies flank pain, Denies genital sores, Denies hematuria, Denies hot flashes, Denies incomplete emptying, Denies kidney stones, Denies menorrhagia, Denies mixed incontinence, Denies nocturia, Denies pelvic pain, Denies post void dribbling, Denies , Denies prolapse symptoms, Denies stress incontinence, Denies urge incontinence, Denies urgency, Denies urinary frequency, Denies vaginal discharge, Denies vaginal dryness, Denies vaginal itching, Denies vaginal odor Menstruation: Reports as per HPI, Reports postmenopausal Musculoskeletal: Reports as per HPI, Reports gait dysfunction, Reports limitation of motion, Reports morning stiffness Integumentary: Reports as per HPI, Denies acne, Denies boils, Denies brittle nails, Denies change in hair/nails, Denies color changes, Denies darkening of skin, Denies depigmentation, Denies dryness, Denies foot/leg ulcers, Denies growths, Denies hirsutism, Denies lesions, Denies onychomycosis, Denies pruritus, Denies rash, Denies sores, Denies striae, Denies unusual bruising, Denies wounds Neurological: Reports as per HPI Psychiatric: Reports as per HPI Endocrine: Reports as per HPI Hematologic/Lymphatic: Reports as per HPI Allergic/Immunologic: Reports as per HPI Past Medical History Past Medical History: Deep Vein Thrombosis (DVT), Fibromyalgia, Rheumatoid Arthritis (RA), Skin Disorder, Thyroid Disorder Additional Past Medical History / Comment(s): "LEAKY BLADDER" , "POOR CIRCULATION", HX Wound rt foot 3rd toe, bunion on left foot, PAST RT HIP FX-NO SX DONE. History of Any Multi-Drug Resistant Organisms: MRSA Date of last positivie culture/infection: 02/17/18 MDRO Source:: leg Past Surgical History: Appendectomy, Cholecystectomy, Tonsillectomy Additional Past Surgical History / Comment(s): left foot wound debridement. nodule removed from thyroid. sinus surgery. surgical excision and debridment of sacrum with wound VAC placement on 08/05/15 and sx done(flap) that developed pin hole leak -had 2nd sx to repair". debridement wound care to right lower extremity wound on 08/21/15. Past Anesthesia/Blood Transfusion Reactions: No Reported Reaction Past Psychological History: No Psychological Hx Reported Additional Psychological History / Comment(s): pt currently has been staying with her daughter."has been on bedrest since sx in february" receives [facility]. Smoking Status: Never smoker Past Alcohol Use History: None Reported Additional Past Alcohol Use History / Comment(s): Patient is a lifelong nonsmoker. She denies any medical marijuana, marijuana, street drug or alcohol use. 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 Around May or June 2015, patient moved into her son and daughter in law's home due to difficulty with ambulating and falls. She uses a walker at home. There are dogs in the home. No travel. Past Drug Use History: None Reported - Past Family History Mother Family Medical History: AFIB, Cancer Additional Family Medical History / Comment(s): still living at age 91. skin cancer Father Family Medical History: Liver Disease, Rheumatoid Arthritis (RA) Additional Family Medical History / Comment(s): leukemia. at age 72 of liver problem. Medications and Allergies Home Medications Medication Instructions Recorded Confirmed Type Ascorbic Acid [Vitamin C] 500 mg PO DAILY 08/26/17 02/17/19 History Cyanocobalamin (Vitamin B-12) 1,000 mcg PO DAILY 08/26/17 02/17/19 History [Vitamin B-12] Ferrous Sulfate [Iron] 325 mg PO DAILY 08/26/17 02/17/19 History Hydrocodone/Acetaminophen 1 tab PO QID PRN 08/26/17 02/17/19 History [Hydrocodon-Acetaminophn 10-325] Leflunomide [Arava] 20 mg PO DAILY 08/26/17 02/17/19 History Levothyroxine Sodium [Synthroid] 200 mcg PO DAILY 08/26/17 02/17/19 History Multivitamins, Thera [Multivitamin 1 tab PO DAILY 08/26/17 02/17/19 History (formulary)] Pregabalin [Lyrica] 100 mg PO BID 08/26/17 02/17/19 History Rivaroxaban [Xarelto] 20 mg PO DAILY 08/26/17 02/17/19 History fentaNYL 12MCG/HR PATCH [Duragesic 12 mcg TRANSDERM Q72H 08/26/17 02/17/19 History 12MCG/HR] fentaNYL 25MCG/HR PATCH [Duragesic 25 mcg TRANSDERM Q72H 08/26/17 02/17/19 History 25MCG/HR] Allergies Allergy/AdvReac Type Severity Reaction Status Date / Time Penicillins Allergy Rash/Hives Verified 02/17/19 18:45 Physical Exam Vitals: Vital Signs Temp Pulse Pulse Resp BP BP BP 02/18/19 17:52 79 16 95/53 02/18/19 17:22 82 17 118/73 02/18/19 17:12 98.4 F 79 17 86/56 02/18/19 15:35 92/60 02/18/19 14:58 88/44 93/47 02/18/19 14:40 97.9 F 84 17 91/42 02/18/19 11:44 98.4 F 82 18 98/55 02/18/19 11:14 98.3 F 80 18 105/52 02/18/19 11:04 98.2 F 87 18 116/53 02/18/19 07:47 98.1 F 87 18 107/60 02/17/19 23:00 98.4 F 93 16 127/71 02/17/19 21:09 97.8 F 58 L 18 100/58 02/17/19 20:10 97.6 F 56 L 18 102/52 Pulse Ox 02/18/19 17:52 02/18/19 17:22 97 02/18/19 17:12 97 02/18/19 15:35 02/18/19 14:58 02/18/19 14:40 97 02/18/19 11:44 98 02/18/19 11:14 97 02/18/19 11:04 97 02/18/19 07:47 95 02/17/19 23:00 98 02/17/19 21:09 97 02/17/19 20:10 97 Intake and Output 02/18/19 02/18/19 02/18/19 06:59 14:59 22:59 Intake Total 590 1260 0 Balance 590 1260 0 Intake: Intake, IV Titration 640 Amount Sodium Chloride 0.9% 1, 640 000 ml @ 80 mls/hr IV . [id number] [facility] Rx#:[id number] Oral 590 Blood Product 620 0 Rc As-1 Unit 0 [id number] Rc As-1 Unit 310 [id number] Other: Voiding Method Diaper Diaper Diaper Incontinent Incontinent Incontinent # Voids 4 1 # Bowel Movements 4 1 Weight 102.058 kg - Constitutional General appearance: cooperative, obese - EENT Eyes: anicteric sclerae, EOMI, PERRLA - Neck Neck: normal ROM - Respiratory Respiratory: bilateral: CTA, negative: diminished, dullness, rales - Cardiovascular Rhythm: regular Heart sounds: normal: S1, S2 Abnormal Heart Sounds: systolic murmur, no diastolic murmur, no rub, no S3 Gallop, no S4 Gallop, no click, no other - Gastrointestinal General gastrointestinal: soft, tenderness (Epigastric) - Integumentary Venous stasis ulcerations of right leg shallow superficial of 5-6 lesions of varying sizes, deeper lesion on the medial right tib area, with some purulence noted, right leg shallow ulcers tibial region dressed today by nursing staff Integumentary: decreased turgor, normal, ulcer - Neurologic Neurologic: CNII-XII intact - Musculoskeletal Musculoskeletal: generalized weakness, strength equal bilaterally - Psychiatric Psychiatric: A&O x's 3, appropriate affect, intact judgment & insight Results CBC & Chem 7: 02/19/19 10:42 02/19/19 10:42 Labs: Abnormal Lab Results - Last 24 Hours (Table) 02/17/19 02/18/19 Range/Units 18:18 04:11 RBC 2.63 L (3.80-5.40) m/uL Hgb 6.8 L* D (11.4-16.0) gm/dL Hct 22.7 L (34.0-46.0) % MCHC 29.9 L (31.0-37.0) g/dL RDW 15.9 H (11.5-15.5) % Crossmatch See Detail Laboratory Results WBC 9.5 k/uL (3.8-10.6) 02/18/19 04:11 RBC 2.63 m/uL (3.80-5.40) L 02/18/19 04:11 Hgb 6.8 gm/dL (11.4-16.0) L* D 02/18/19 04:11 Hct 22.7 % (34.0-46.0) L 02/18/19 04:11 MCV 86.3 fL (80.0-100.0) 02/18/19 04:11 MCH 25.8 pg (25.0-35.0) 02/18/19 04:11 MCHC 29.9 g/dL (31.0-37.0) L 02/18/19 04:11 RDW 15.9 % (11.5-15.5) H 02/18/19 04:11 Plt Count 353 k/uL (150-450) 02/18/19 04:11 Neutrophils % 83 % 02/17/19 18:31 Lymphocytes % 10 % 02/17/19 18:31 Monocytes % 4 % 02/17/19 18:31 Eosinophils % 1 % 02/17/19 18:31 Basophils % 0 % 02/17/19 18:31 Neutrophils # 6.7 k/uL (1.3-7.7) 02/17/19 18:31 Lymphocytes # 0.8 k/uL (1.0-4.8) L 02/17/19 18:31 Monocytes # 0.4 k/uL (0-1.0) 02/17/19 18:31 Eosinophils # 0.1 k/uL (0-0.7) 02/17/19 18:31 Basophils # 0.0 k/uL (0-0.2) 02/17/19 18:31 Hypochromasia Marked 02/18/19 04:11 PT 13.3 sec (9.0-12.0) H 02/17/19 18:31 INR 1.3 (<1.2) H 02/17/19 18:31 APTT 32.2 sec (22.0-30.0) H 02/17/19 18:31 Sodium 140 mmol/L (137-145) 02/17/19 18:31 Potassium 4.8 mmol/L (3.5-5.1) 02/17/19 18:31 Chloride 107 mmol/L (98-107) 02/17/19 18:31 Carbon Dioxide 25 mmol/L (22-30) 02/17/19 18:31 Anion Gap 8 mmol/L 02/17/19 18:31 BUN 56 mg/dL (7-17) H 02/17/19 18:31 Creatinine 0.91 mg/dL (0.52-1.04) 02/17/19 18:31 Est GFR (CKD-EPI)AfAm 74 (>60 ml/min/1.73 sqM) 02/17/19 18:31 Est GFR (CKD-EPI)NonAf 64 (>60 ml/min/1.73 sqM) 02/17/19 18:31 Glucose 116 mg/dL (74-99) H 02/17/19 18:31 Calcium 9.2 mg/dL (8.4-10.2) 02/17/19 18:31 Magnesium 1.9 mg/dL (1.6-2.3) 02/17/19 18:31 Total Bilirubin 0.4 mg/dL (0.2-1.3) 02/17/19 18:31 AST 19 U/L (14-36) 02/17/19 18:31 ALT 15 U/L (9-52) 02/17/19 18:31 Alkaline Phosphatase 117 U/L (38-126) 02/17/19 18:31 Creatine Kinase 38 U/L (30-135) 02/17/19 18:31 Troponin I <0.012 ng/mL (0.000-0.034) 02/17/19 18:31 Total Protein 5.8 g/dL (6.3-8.2) L 02/17/19 18:31 Albumin 2.9 g/dL (3.5-5.0) L 02/17/19 18:31 Stool Occult Blood Positive (Negative) H 02/17/19 18:31 Blood Type B Positive 02/17/19 18:18 Blood Type Confirm B Positive 02/17/19 18:16 Blood Type Recheck CABO Indicated 02/17/19 18:18 Antibody Screen NEGATIVE 02/17/19 18:18 Crossmatch See Detail 02/17/19 18:18 Spec Expiration Date 02/20/2019 - 231702/17/19 18:18 Thrombosis Risk Factor Assmnt - DVT/VTE Prophylaxis DVT/VTE Prophylaxis: Contraindicated - See note (Ulcers leg, and melena) - Choose All That Apply Any of the Below Risk Factors Present?: Yes Each Factor Represents 1 point: Medical pt on bed rest, Obesity (BMI >25) Each Risk Factor Represents 2 Points: Age 61-74 years Thrombosis Risk Factor Assessment Total Risk Factor Score: 4 Thrombosis Risk Factor Assessment Level: Moderate Risk Assessment and Plan Plan: 1. Upper GI bleeding presenting with melanocytic stool, possibly related to single dose of NSAID, on anticoagulation Xarelto, which is held, consult with GI, patient had a hemoglobin drop of1.5 g 24 hours, given 2 units of packed red blood cells, INR at 1.3, no reversal agent for Xarelto given Xarelto is on hold patient most likely would need an EGD 2. Acute on chronic blood loss anemia, symptomatic, 2 units of packed red blood cells given 2 history of DVT over 1 year ago maintained on- on xarelto anticoagulant held 3 history of rheumatoid arthritis- stable 4 history of hypothyroidism continue Synthyroid 5 history of MRSA infection- wound culture right leg sent from the site of the recent varicose vein surgery right leg 6 chronic indwelling Charles catheter which has been changed on this admission,- poor urine output, monitor TOMER's while in the ICU. Urology consulted for an hydronephrosis seen on the left side. 7. CK D stage II 8 DVT prophylaxis:: Contra Indication for leg ulcers bilateral, we would start L ovenox once hemoglobin is stabilized was on Xarelto prior to admission 9 GI prophylaxis -Protonix IV 40 twice a day, suspect bleeding gastric ulcer CODE STATUS full code
[2019-02-19] MEDS: LEVOTHYROXINE 100 MCG TAB PO SCH (05:54)
[2019-02-19] MEDS: HYDROcodone/APAP 10-325MG 1 EACH TAB PO PRN ×3 (05:55→20:02)
[2019-02-19] MEDS: SODIUM CHLORIDE 0.9% 1,000 ML IV SCH ×2 (05:56→16:19)
[2019-02-19] MEDS: PREGABALIN 100 MG CAP PO SCH ×2 (08:55→20:02)
[2019-02-19] MEDS: CYANOCOBALAMIN 500 MCG TAB PO SCH (08:55)
[2019-02-19] MEDS: FERROUS SULFATE 325 MG TAB PO SCH (08:55)
[2019-02-19] MEDS: ASCORBIC ACID 500 MG TAB PO SCH (08:55)
[2019-02-19] MEDS: PANTOPRAZOLE 40 MG/10 ML VIAL IV SCH ×2 (08:55→20:03)
[2019-02-19] MEDS: MULTIVITAMINS, THERA 1 EACH TAB PO SCH (08:55)
[2019-02-19] MEDS: LEFLUNOMIDE 20 MG TAB PO SCH (08:55)
[2019-02-19 11:20] LABS: ALT 14 U/L (9-52); AST 20 U/L (14-36); African American GFR (CKD) >90 (>60 ml/min/1.73 sqM); Albumin 2.5 g/dL (3.5-5.0); Alkaline Phosphatase 108 U/L (38-126); Anion Gap 5 mmol/L; Blood Urea Nitrogen 30 mg/dL (7-17); Calcium 8.7 mg/dL (8.4-10.2); Carbon Dioxide 24 mmol/L (22-30); Chloride 111 mmol/L (98-107); Glucose 88 mg/dL (74-99); Potassium 3.8 mmol/L (3.5-5.1); Sodium 140 mmol/L (137-145); Total Bilirubin 0.4 mg/dL (0.2-1.3)
[2019-02-19 12:34] LABS: HCT 26.8 % (34.0-46.0); HGB 8.1 gm/dL (11.4-16.0); Hypochromasia Marked; MCH 26.5 pg (25.0-35.0); MCHC 30.4 g/dL (31.0-37.0); MCV 87.3 fL (80.0-100.0); Platelet Count 273 k/uL (150-450); RBC 3.07 m/uL (3.80-5.40); RDW 15.9 % (11.5-15.5); WBC 6.8 k/uL (3.8-10.6)
--- NOTE | 2019-02-19 17:44 | P.PN ---
Subjective Progress Note Date: 02/19/19 68 years old female patient of Dr. Moyer with past medical history of history of rheumatoid arthritis, hypothyroidism, DVT 1 year ago on 02, history of fibromyalgia, history of decubitus ulcer, previous MRSA infection presents today secondary to dark melena stools, 4 times in the past 24 hours, patient has had symptoms for the past 24 hours coming in from home. She has had recent vascular surgery, for venous stasis ulcers, [address] Martin, and was recommended to have Aleve to control her pain, she is on eliquuist, she took 1 pill of Aleve, and nothing thereafter. She presents with epigastric abdominal pain, no nausea, no vomiting, patient denies any history of EGD or baseline colonoscopy in the past. She comes in with shortness of breath increasing fatigue 02/19, patient denies any abdominal pain today, were increasing her diet to full liquid diet, no plans for imaging studies, GI consult was placed today, last bowel movement was a few hours ago, one daily, dark stools without any burgundy stools, formed hemoglobin of 8.1 from a previous of 6.8, still holding off Xarelto, prepare for possible procedure in a.m. EGD, nothing by mouth post midnight. She looks pale today however, we'll going to request another repeat CBC Objective - Vital Signs Vital signs: Vital Signs Temp 98.1 F 02/19/19 12:09 Pulse 82 02/19/19 12:09 Resp 18 02/19/19 12:09 BP 135/68 02/19/19 12:09 Pulse Ox 100 02/19/19 12:09 Intake & Output 02/18/19 02/19/19 02/19/19 18:59 06:59 18:59 Intake Total 1260 310 Balance 1260 310 Weight 102.058 kg Intake: Intake, IV Titration 640 Amount Sodium Chloride 0.9% 1, 640 000 ml @ 80 mls/hr IV . [id number] [facility] Rx#:[id number] Blood Product 620 310 Rc As-1 Unit 0 310 [id number] Rc As-1 Unit 310 [id number] Other: Voiding Method Diaper Diaper Diaper Incontinent Incontinent Incontinent # Voids 1 3 1 # Bowel Movements 1 1 - Constitutional General appearance: Present: cooperative, no acute distress - EENT Eyes: Present: anicteric sclerae, EOMI, PERRLA ENT: Present: NA/AT, normal oropharynx - Neck Neck: Present: normal ROM - Respiratory Respiratory: bilateral: CTA, negative: diminished, dullness, rales - Cardiovascular Rhythm: regular Heart sounds: normal: S1, S2 Abnormal Heart Sounds: Absent: systolic murmur, diastolic murmur, rub, S3 Gallop, S4 Gallop, click, other - Gastrointestinal General gastrointestinal: Present: normal bowel sounds, soft - Integumentary Integumentary: Present: normal - Neurologic Neurologic: Present: CNII-XII intact - Musculoskeletal Musculoskeletal: Present: strength equal bilaterally - Psychiatric Psychiatric: Present: A&O x's 3, appropriate affect, intact judgment & insight - Labs CBC & Chem 7: 02/19/19 10:42 02/19/19 10:42 Labs: Abnormal Lab Results - Last 24 Hours (Table) 02/17/19 02/19/19 02/19/19 Range/Units 18:18 10:42 10:42 RBC 3.07 L (3.80-5.40) m/uL Hgb 8.1 L (11.4-16.0) gm/dL Hct 26.8 L (34.0-46.0) % MCHC 30.4 L (31.0-37.0) g/dL RDW 15.9 H (11.5-15.5) % Chloride 111 H (98-107) mmol/L BUN 30 H (7-17) mg/dL Total Protein 5.0 L (6.3-8.2) g/dL Albumin 2.5 L (3.5-5.0) g/dL Crossmatch See Detail Assessment and Plan Plan: 1. Upper GI bleeding presenting with melanocytic stool, possibly related to single dose of NSAID, on anticoagulation Xarelto, which is held, consult with GI, patient had a hemoglobin drop of1.5 g 24 hours, given 2 units of packed red blood cells, INR at 1.3, no reversal agent for Xarelto given Xarelto is on hold patient most likely would need an EGD 2. Acute on chronic blood loss anemia, symptomatic, 2 units of packed red blood cells given monitor CBC, check for iron saturation, haptoglobin, 2 history of DVT over 1 year ago maintained on- on xarelto anticoagulant held 3 history of rheumatoid arthritis- stable 4 history of hypothyroidism continue Synthyroid 5 history of MRSA infection- wound culture right leg sent from the site of the recent varicose vein surgery right leg 6 chronic indwelling Charles catheter which has been changed on this admission,- poor urine output, monitor TOMER's while in the ICU. Urology consulted for an hydronephrosis seen on the left side. 7. CK D stage II 8 DVT prophylaxis:: Contra Indication for leg ulcers bilateral, we would start Lovenox once hemoglobin is stabilized was on Xarelto prior to admission 9 GI prophylaxis -Protonix IV 40 every 12 CODE STATUS full code
[2019-02-19 18:23] LABS: Basophils % (A) 1 %; Eosinophils # (A) 0.4 k/uL (0-0.7); Eosinophils % (A) 6 %; HCT 30.6 % (34.0-46.0); HGB 9.2 gm/dL (11.4-16.0); Hypochromasia Marked; Lymphocytes # (A) 1.2 k/uL (1.0-4.8); Lymphocytes % (A) 21 %; MCH 27.7 pg (25.0-35.0); MCV 92.1 fL (80.0-100.0); Mean Platelet Volume 7.9; Monocytes # (A) 0.3 k/uL (0-1.0); Monocytes % (A) 5 %; Neutrophils # (A) 3.7 k/uL (1.3-7.7); Neutrophils % (A) 66 %; Platelet Count 273 k/uL (150-450); Poikilocytosis Slight; RBC 3.32 m/uL (3.80-5.40); RDW 15.9 % (11.5-15.5); WBC 5.6 k/uL (3.8-10.6)
--- NOTE | 2019-02-19 19:34 | P.CONS ---
History of Present Illness - Reason for Consult Consult date: 02/19/19 GI bleed Requesting physician: Alana Wilson - Chief Complaint Melena - History of Present Illness 68-year-old female with a medical history significant for rheumatoid arthritis, hypothyroidism, prior DVT, fibromyalgia, decubitus ulcer, MRSA and recent vascular surgery for venous stasis ulcers 2 weeks ago who presented to the hospital with reports of dark stool. The patient reports having multiple episodes of dark colored bowel movements prior to presentation. She was at home when this occurred and called EMS and reports subsequently having one further dark bowel movement at the hospital. Testing for occult blood has been positive. Hemoglobin on presentation and 0.3 which fell to 6.8 and is currently 9.2. INR 1.3, alkaline phosphatase 108, total bilirubin 0.4, AST 20 and ALTs 14. The patient is on Eliquis which has been held during hospitalization. She was also told to use Aleve for pain and has taken 2-3 prior to presentation after her procedure. No prior history of peptic ulcer disease. No prior EGD or colonoscopy reported. She does report some shortness of breath and fatigue. Review of Systems REVIEW OF SYSTEMS: CONSTITUTIONAL: Denies any fevers, chills, weight change but did report fatigue. CARDIOVASCULAR: Denies any chest pain, palpitations high or low blood pressures RESPIRATORY: Denies any hemoptysis or cough, but did have some shortness of breath. GENITOURINARY: No dysuria or hematuria. MUSCULOSKELETAL: No weakness reported. SKIN: Denies any new rashes or lesions, jaundice or pallor. PSYCHIATRIC: Denies any depression or anxiety. NEUROLOGY: Denies headache, denies any new focal deficits. EARS/NOSE/THROAT: No recent hearing change, congestion, nasal discharge or sore throat. EYES: No pain in eyes, discharge or change in vision. GASTROINTESTINAL: As per HPI. Past Medical History Past Medical History: Deep Vein Thrombosis (DVT), Fibromyalgia, Rheumatoid Arthritis (RA), Skin Disorder, Thyroid Disorder Additional Past Medical History / Comment(s): "LEAKY BLADDER" , "POOR CIRCULATION", HX Wound rt foot 3rd toe, bunion on left foot, PAST RT HIP FX-NO SX DONE. History of Any Multi-Drug Resistant Organisms: MRSA Year Discovered:: 02/17/18 MDRO Source:: leg Past Surgical History: Appendectomy, Cholecystectomy, Tonsillectomy Additional Past Surgical History / Comment(s): left foot wound debridement. nodule removed from thyroid. sinus surgery. surgical excision and debridment of sacrum with wound VAC placement on 08/05/15 and sx done(flap) that developed pin hole leak -had 2nd sx to repair". debridement wound care to right lower extremity wound on 08/21/15. Past Anesthesia/Blood Transfusion Reactions: No Reported Reaction Past Psychological History: No Psychological Hx Reported Additional Psychological History / Comment(s): pt currently has been staying with her daughter."has been on bedrest since sx in february" receives [facility] care. Smoking Status: Never smoker Past Alcohol Use History: None Reported Additional Past Alcohol Use History / Comment(s): Patient is a lifelong nonsmoker. She denies any medical marijuana, marijuana, street drug or alcohol use. 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 Around May or June 2015, patient moved into her son and daughter in law's home due to difficulty with ambulating and falls. She uses a walker at home. There are dogs in the home. No travel. Past Drug Use History: None Reported - Past Family History Mother Family Medical History: AFIB, Cancer Additional Family Medical History / Comment(s): still living at age 91. skin cancer Father Family Medical History: Liver Disease, Rheumatoid Arthritis (RA) Additional Family Medical History / Comment(s): leukemia. at age 72 of liver problem. Medications and Allergies Home Medications Medication Instructions Recorded Confirmed Type Ascorbic Acid [Vitamin C] 500 mg PO DAILY 08/26/17 02/17/19 History Cyanocobalamin (Vitamin B-12) 1,000 mcg PO DAILY 08/26/17 02/17/19 History [Vitamin B-12] Ferrous Sulfate [Iron] 325 mg PO DAILY 08/26/17 02/17/19 History Hydrocodone/Acetaminophen 1 tab PO QID PRN 08/26/17 02/17/19 History [Hydrocodon-Acetaminophn 10-325] Leflunomide [Arava] 20 mg PO DAILY 08/26/17 02/17/19 History Levothyroxine Sodium [Synthroid] 200 mcg PO DAILY 08/26/17 02/17/19 History Multivitamins, Thera [Multivitamin 1 tab PO DAILY 08/26/17 02/17/19 History (formulary)] Pregabalin [Lyrica] 100 mg PO BID 08/26/17 02/17/19 History Rivaroxaban [Xarelto] 20 mg PO DAILY 08/26/17 02/17/19 History fentaNYL 12MCG/HR PATCH [Duragesic 12 mcg TRANSDERM Q72H 08/26/17 02/17/19 History 12MCG/HR] fentaNYL 25MCG/HR PATCH [Duragesic 25 mcg TRANSDERM Q72H 08/26/17 02/17/19 History 25MCG/HR] Allergies Allergy/AdvReac Type Severity Reaction Status Date / Time Penicillins Allergy Rash/Hives Verified 02/17/19 18:45 Physical Exam Vitals: Vital Signs Temp Pulse Pulse Resp BP BP BP 02/19/19 12:09 98.1 F 82 18 135/68 02/19/19 07:19 97.5 F L 72 17 93/64 02/18/19 21:00 97.8 F 80 16 104/57 02/18/19 20:35 78 101/69 Pulse Ox 02/19/19 12:09 100 02/19/19 07:19 98 02/18/19 21:00 97 02/18/19 20:35 Intake and Output 02/19/19 02/19/19 02/19/19 06:59 14:59 22:59 Other: Voiding Method Diaper Incontinent # Voids 3 1 1 # Bowel Movements 1 1 On physical examination, patient appears comfortable in no apparent distress. HEAD: Normocephalic, atraumatic. EYES: No scleral icterus. No conjunctival injection. MOUTH: No lesions, tongue midline. NECK: Trachea midline, no gross abnormalities. CHEST: Clear to auscultation with no wheezing or rhonchi appreciated. HEART: S1-S2 appreciated. ABDOMEN: Soft, obese and nontender. Bowel sounds are positive. No organomegaly. No guarding or rigidity. EXTREMITIES: No pedal edema. SKIN: No rashes, no jaundice. NEUROLOGIC: Alert and oriented x3. No focal deficits. Results CBC & Chem 7: 02/19/19 18:05 02/19/19 10:42 Labs: Abnormal Lab Results - Last 24 Hours (Table) 02/17/19 02/19/19 02/19/19 Range/Units 18:18 10:42 10:42 RBC 3.07 L (3.80-5.40) m/uL Hgb 8.1 L (11.4-16.0) gm/dL Hct 26.8 L (34.0-46.0) % MCHC 30.4 L (31.0-37.0) g/dL RDW 15.9 H (11.5-15.5) % Chloride 111 H (98-107) mmol/L BUN 30 H (7-17) mg/dL Total Protein 5.0 L (6.3-8.2) g/dL Albumin 2.5 L (3.5-5.0) g/dL Crossmatch See Detail 02/19/19 Range/Units 18:05 RBC 3.32 L (3.80-5.40) m/uL Hgb 9.2 L (11.4-16.0) gm/dL Hct 30.6 L (34.0-46.0) % MCHC 30.0 L (31.0-37.0) g/dL RDW 15.9 H (11.5-15.5) % Chloride (98-107) mmol/L BUN (7-17) mg/dL Total Protein (6.3-8.2) g/dL Albumin (3.5-5.0) g/dL Crossmatch Assessment and Plan (1) Anemia associated with acute blood loss Narrative/Plan: 68-year-old female with multiple medical comorbidities on Eliquis therapy who had treatment for venous stasis ulcers 2 weeks ago and had taken some Aleve for treatment of pain since that time who presented with multiple episodes of melanotic stool and a fall in her hemoglobin originally 8.3 on presentation it fell to 6.8 and is currently 9.2 after transfusion. No prior history of GI bleed or peptic ulcer disease. No prior endoscopic evaluation. Differential includes peptic ulcer disease, esophagitis/gastritis, AVM or other source of upper GI bleeding. Current Visit: Yes Status: Acute Code(s): D62 - ACUTE POSTHEMORRHAGIC ANEMIA SNOMED Code(s): 824975912 (2) Melena Current Visit: Yes Status: Acute Code(s): K92.1 - MELENA SNOMED Code(s): 1377428 (3) Upper GI bleeding Current Visit: Yes Status: Acute Code(s): K92.2 - GASTROINTESTINAL HEMORRHAGE, UNSPECIFIED SNOMED Code(s): 63824307 Plan: Supportive care Okay for liquid diet Continue monitor hemoglobin and hematocrit and transfuse as needed Continue Protonix 40 mg IV twice daily Nothing by mouth after midnight Plan for EGD in the morning Avoid NSAID use Thank you for allowing us to participate in the care of the patient we will continue to follow
[2019-02-20] MEDS: SODIUM CHLORIDE 0.9% 1,000 ML IV SCH (03:12)
[2019-02-20] MEDS: LEVOTHYROXINE 100 MCG TAB PO SCH (05:29)
[2019-02-20] MEDS ORDERED: IV FLUID CONTINUATION 1,000 ML IV ONE (07:50)
[2019-02-20] MEDS ORDERED: PROPOFOL 10 MG/ML 20 ML VIAL IV ONE (07:51)
--- NOTE | 2019-02-20 08:14 | P.PCN ---
Date of Procedure: 02/20/19 Description of Procedure: BRIEF HISTORY: 68-year-old female with a medical history significant for rheumatoid arthritis, hypothyroidism, prior DVT, fibromyalgia, decubitus ulcer, MRSA and recent vascular surgery for venous stasis ulcers 2 weeks ago who presented to the hospital with reports of dark stool. The patient reports having multiple episodes of dark colored bowel movements prior to presentation. She was at home when this occurred and called EMS and reports subsequently having one further dark bowel movement at the hospital. Testing for occult blood has been positive. Hemoglobin on presentation and 0.3 which fell to 6.8 and is currently 9.2. INR 1.3, alkaline phosphatase 108, total bilirubin 0.4, AST 20 and ALTs 14. The patient is on Eliquis which has been held during hospitalization. She was also told to use Aleve for pain and has taken 2-3 prior to presentation after her procedure. No prior history of peptic ulcer disease. No prior EGD or colonoscopy reported. She does report some shortness of breath and fatigue.. PROCEDURE PERFORMED: Esophagogastroduodenoscopy with biopsy. PREOPERATIVE DIAGNOSIS: Anemia of acute blood loss, melena. ESTIMATED BLOOD LOSS: Minimal. IV sedation per anesthesia. PROCEDURE: After informed consent was obtained, the patient was brought into the endoscopy unit. IV sedation was administered by Anesthesia under continuous monitoring. Initially the Olympus GIF-190 video endoscope was inserted into the mouth. Esophagus intubated without any difficulty. It was gradually advanced into the stomach and duodenum and carefully examined. The bulb and the second part of the duodenum appeared normal, with some mild irritation consistent with mild duodenitis with biopsies taken. The scope at this time was withdrawn to the stomach, adequately insufflated with air, and upon careful examination, mucosa of the antrum, body, cardia and the fundus were significant for a superficial 5 mm nonbleeding antral ulcer with some associated deformity of the mucosa with biopsies taken. Mild erythema in the antrum and body suggestive of mild gastritis were also noted with biopsies of the antrum and body. The scope was then withdrawn into the esophagus. The GE junction was located at 40 cm from the incisors. The esophagus appeared normal. There were no erosions or ulcerations seen and the patient tolerated the procedure well. IMPRESSION: 1. Nonbleeding antral ulcer, biopsied. 2. Gastritis antrum and body, biopsied. 3. Mild duodenitis, biopsied. RECOMMENDATIONS: The findings of this examination were discussed with the patient. Okay to resume diet. Continue Protonix 40 mg twice daily. Continue to monitor hemoglobin and hematocrit and transfuse as needed. Would recommend repeat EGD in 8 weeks to check for ulcer healing at which time colonoscopy can be performed for screening. Await pathology from biopsies. The gastroenterology service will stand by, please call us back with any questions or concerns.
[2019-02-20] MEDS ORDERED: PANTOPRAZOLE 40 MG TABLET PO SCH (08:15)
[2019-02-20] MEDS: ASCORBIC ACID 500 MG TAB PO SCH (08:29)
[2019-02-20] MEDS: LEFLUNOMIDE 20 MG TAB PO SCH (08:29)
[2019-02-20] MEDS: MULTIVITAMINS, THERA 1 EACH TAB PO SCH (08:29)
[2019-02-20] MEDS: HYDROcodone/APAP 10-325MG 1 EACH TAB PO PRN ×2 (08:29→16:53)
[2019-02-20] MEDS: PREGABALIN 100 MG CAP PO SCH (08:29)
[2019-02-20] MEDS: CYANOCOBALAMIN 500 MCG TAB PO SCH (08:29)
[2019-02-20] MEDS: FERROUS SULFATE 325 MG TAB PO SCH (08:29)
[2019-02-20 09:22] LABS: Anisocytosis Slight; HCT 28.6 % (34.0-46.0); HGB 8.7 gm/dL (11.4-16.0); Hypochromasia Marked; MCHC 30.4 g/dL (31.0-37.0); MCV 88.7 fL (80.0-100.0); Mean Platelet Volume 7.9; Platelet Count 319 k/uL (150-450); RBC 3.23 m/uL (3.80-5.40); RDW 16.3 % (11.5-15.5); WBC 5.5 k/uL (3.8-10.6)
[2019-02-20 09:27] LABS: Albumin 2.5 g/dL (3.5-5.0); Calcium 8.8 mg/dL (8.4-10.2); Potassium 3.9 mmol/L (3.5-5.1); Total Bilirubin 0.5 mg/dL (0.2-1.3); Total Protein 5.2 g/dL (6.3-8.2)
--- NOTE | 2019-02-20 13:35 | P.DS ---
Providers Date of admission: 02/17/19 20:16 Expected date of discharge: 02/20/19 Attending physician: Alana Wilson Primary care physician: Cierra Moyer [facility] Course: 68 years old female patient of Dr. Moyer with past medical history of history of rheumatoid arthritis, hypothyroidism, DVT 1 year ago on 02, history of fibromyalgia, history of decubitus ulcer, previous MRSA infection presents today secondary to dark melena stools, 4 times in the past 24 hours, patient has had symptoms for the past 24 hours coming in from home. She has had recent vascular surgery, for venous stasis ulcers, [address] Martin, and was recommended to have Aleve to control her pain, she is on eliquis, she took 1 pill of Aleve, and nothing thereafter. She presents with epigastric abdominal pain, no nausea, no vomiting, patient denies any history of EGD or baseline colonoscopy in the past. She comes in with shortness of breath increasing fatigue 02/19, patient denies any abdominal pain today, were increasing her diet to full liquid diet, no plans for imaging studies, GI consult was placed today, last bowel movement was a few hours ago, one daily, dark stools without any burgundy stools, formed hemoglobin of 8.1 from a previous of 6.8, still holding off Xarelto, prepare for possible procedure in a.m. EGD, nothing by mouth post midnight. She looks pale today however, we'll going to request another repeat CBC 02/20: This morning, patient underwent EGD with Dr. Win which found nonbleeding antral ulcer which was biopsied, gastritis in the antrum and body, biopsied and mild duodenitis biopsied. Patient has been cleared to resume diet and continue Protonix 40 mg twice daily. He has recommended a repeat EGD in 8 weeks as well as colonoscopy at that time for screening. GI is now following on an as-needed basis. Repeat hemoglobin is 8.7. Patient w patient is tolerating diet without nausea and vomiting. Patient will be discharged home today in stable condition. Discharge diagnoses: 1. Upper GI bleeding due to antral ulcer, gastritis and duodenitis presenting with melanocytic stool, possibly related to single dose of NSAID, on anticoagulation Xarelto 2. Acute on chronic blood loss anemia status post transfusion of 2 units of packed red blood cells 3. History of DVT over 1 year ago maintained on xarelto 4. Rheumatoid arthritis- stable 5. Hypothyroidism 6. History of MRSA infection 7. Chronic indwelling Charles catheter, changed on this admission 8. CKD stage II 9. Stage II pressure ulcer to right thigh, right buttocks, arterial ulcer left calf and right calf. Discharge plan: Home Impression and plan of care have been directed as dictated by the signing physician. Arlene Darnell nurse practitioner acting as scribe for signing physician. Patient Condition at Discharge: Good Plan - Discharge Summary New Discharge Prescriptions: New Pantoprazole [Protonix] 40 mg PO AC-BID #60 tablet[address] Bernal Multivitamins, Thera [Multivitamin (formulary)] 1 tab PO DAILY Ascorbic Acid [Vitamin C] 500 mg PO DAILY Levothyroxine Sodium [Synthroid] 200 mcg PO DAILY Leflunomide [Arava] 20 mg PO DAILY Pregabalin [Lyrica] 100 mg PO BID fentaNYL 25MCG/HR PATCH [Duragesic 25MCG/HR] 25 mcg TRANSDERM Q72H fentaNYL 12MCG/HR PATCH [Duragesic 12MCG/HR] 12 mcg TRANSDERM Q72H Hydrocodone/Acetaminophen [Hydrocodon-Acetaminophn 10-325] 1 tab PO QID PRN PRN Reason: Breakthrough Pain Cyanocobalamin (Vitamin B-12) [Vitamin B-12] 1,000 mcg PO DAILY Changed Ferrous Sulfate [Iron] 325 mg PO BID #0 Discontinued Rivaroxaban [Xarelto] 20 mg PO DAILY Discharge Medication List Ascorbic Acid [Vitamin C] 500 mg PO DAILY 08/26/17 [History] Cyanocobalamin (Vitamin B-12) [Vitamin B-12] 1,000 mcg PO DAILY 08/26/17 [History] Hydrocodone/Acetaminophen [Hydrocodon-Acetaminophn 10-325] 1 tab PO QID PRN 08/26/17 [History] Leflunomide [Arava] 20 mg PO DAILY 08/26/17 [History] Levothyroxine Sodium [Synthroid] 200 mcg PO DAILY 08/26/17 [History] Multivitamins, Thera [Multivitamin (formulary)] 1 tab PO DAILY 08/26/17 [History] Pregabalin [Lyrica] 100 mg PO BID 08/26/17 [History] fentaNYL 12MCG/HR PATCH [Duragesic 12MCG/HR] 12 mcg TRANSDERM Q72H 08/26/17 [History] fentaNYL 25MCG/HR PATCH [Duragesic 25MCG/HR] 25 mcg TRANSDERM Q72H 08/26/17 [History] Ferrous Sulfate [Iron] 325 mg PO BID #0 02/20/19 [Rx] Pantoprazole [Protonix] 40 mg PO AC-BID #60 tablet. 02/20/19 [Rx] Follow up Appointment(s)/Referral(s): Cierra Moyer MD [Primary Care Provider] - 02/28/19 3:15 pm Jeremiah Win MD [STAFF PHYSICIAN] - 03/29/19 4:15 pm Activity/Diet/Wound Care/Special Instructions: Resume Xarelto in one week. Protonix and Ferrous sulfate twice daily for one month, then daily. Discharge Disposition: HOME SELF-CARE
[2019-02-20 14:08] VITALS: BP 122/68; PULSE 89; RESP 18; TEMP 98.1
[2019-02-20 18:34] LABS: Iron Saturation 8.05 (12.00-45.00)
== END 2019-02-20 18:10 | disposition home or self-care (01) | DRG 378 ==
LOC: EC 18:05 → 3NMEDONC 20:16
PROVIDERS: ADMIT Family Medicine; ATTEND Family Medicine
PROC: 30233N1 Transfusion of Nonautologous Red Blood Cells into Peripheral Vein, Percutaneous Approach (ICD-10-PCS; 2019-02-18)
PROC: 0DB78ZX Excision of Stomach, Pylorus, Via Natural or Artificial Opening Endoscopic, Diagnostic (ICD-10-PCS; 2019-02-20)
PROC: 0DB68ZX Excision of Stomach, Via Natural or Artificial Opening Endoscopic, Diagnostic (ICD-10-PCS; 2019-02-20)
PROC: 0DB98ZX Excision of Duodenum, Via Natural or Artificial Opening Endoscopic, Diagnostic (ICD-10-PCS; principal; 2019-02-20 08:00)
DX: K25.4 Chronic or unspecified gastric ulcer with hemorrhage (principal); D62 Acute posthemorrhagic anemia; L97.229 Non-pressure chronic ulcer of left calf with unspecified severity; L97.219 Non-pressure chronic ulcer of right calf with unspecified severity; N13.30 Unspecified hydronephrosis; E03.9 Hypothyroidism, unspecified; K29.70 Gastritis, unspecified, without bleeding; K29.80 Duodenitis without bleeding; L89.312 Pressure ulcer of right buttock, stage 2; L89.892 Pressure ulcer of other site, stage 2; M06.9 Rheumatoid arthritis, unspecified; M79.7 Fibromyalgia; N18.2 Chronic kidney disease, stage 2 (mild); Z79.01 Long term (current) use of anticoagulants; Z79.890 Hormone replacement therapy; Z79.899 Other long term (current) drug therapy; Z80.6 Family history of leukemia; Z80.8 Family history of malignant neoplasm of other organs or systems; Z86.14 Personal history of Methicillin resistant Staphylococcus aureus infection; Z86.718 Personal history of other venous thrombosis and embolism; Z82.49 Family history of ischemic heart disease and other diseases of the circulatory system; Z82.61 Family history of arthritis; Z80.9 Family history of malignant neoplasm, unspecified; Z79.891 Long term (current) use of opiate analgesic; Z88.0 Allergy status to penicillin; Z60.2 Problems related to living alone; T39.395A Adverse effect of other nonsteroidal anti-inflammatory drugs [NSAID], initial encounter
CPT/HCPCS: 36415; 43239; 71046; 74018; 80053; 82272; 82550; 83010; 83540; 83550; 83735; 84484; 85025; 85027; 85610; 85730; 86850; 86900; 86901; 86920; 88305; 93005; 99285

== ENCOUNTER → 2019-03-22 | Outpatient (CLI) | payer MEDICARE ==
--- NOTE | 2019-03-22 17:22 | US ---
LOWER EXTREMITY VENOUS INSUFFICIENCY leg wounds venous insufficiency. Right leg vein surgery per patient but doesn't know where. SIDE PERFORMED: Bilateral 1) Color flow is present and patency is documented in the following vessels. No DVT or SVT is noted . EIV Common Femoral Vein Deep Femoral Vein Femoral Vein Popliteal Vein Proximal Calf Veins Greater Saph Vein Upper Small Saph Vein 2) There is venous reflux noted at the following venous levels: Right- GSV Left- Prox Pop vein and SSV 3) Incompetent perforators are noted at these levels: none limited visualization due to swelling IMPRESSION: 1. Right lower extremity venous reflux in the greater saphenous and popliteal vein
== END | disposition home or self-care (01) ==
LOC: RADUSWWP 13:14
PROVIDERS: ATTEND Family Medicine
DX: I87.2 Venous insufficiency (chronic) (peripheral) (principal)
CPT/HCPCS: 93922; 93970

== ENCOUNTER 2019-07-10 15:44 | Inpatient (IN) | payer MEDICARE ==
[2019-07-10 17:02] LABS: Anisocytosis Slight; Basophils % (A) 0 %; Eosinophils % (A) 0 %; HCT 29.4 % (34.0-46.0); HGB 8.7 gm/dL (11.4-16.0); Hypochromasia Moderate; Lymphocytes # (A) 0.4 k/uL (1.0-4.8); Lymphocytes % (A) 3 %; MCH 25.8 pg (25.0-35.0); MCHC 29.7 g/dL (31.0-37.0); MCV 86.8 fL (80.0-100.0); Mean Platelet Volume 7.3; Monocytes # (A) 0.3 k/uL (0-1.0); Monocytes % (A) 2 %; Neutrophils # (A) 11.9 k/uL (1.3-7.7); Neutrophils % (A) 94 %; Platelet Count 468 k/uL (150-450); RBC 3.38 m/uL (3.80-5.40); RDW 18.7 % (11.5-15.5); WBC 12.7 k/uL (3.8-10.6)
[2019-07-10 17:14] LABS: INR 1.1 (<1.2); Partial Thromboplastin Time 29.3 sec (22.0-30.0); Prothrombin Time 11.5 sec (9.0-12.0)
[2019-07-10 17:20] LABS: C Reactive Protein 59.3 mg/L (<10.0); Calcium 9.7 mg/dL (8.4-10.2); Potassium 4.3 mmol/L (3.5-5.1); Total Bilirubin 0.5 mg/dL (0.2-1.3); Total Protein 5.8 g/dL (6.3-8.2)
[2019-07-10] MEDS ORDERED: NALOXONE 0.4 MG/ML 1 ML VIAL IV PRN (18:04)
[2019-07-10] MEDS ORDERED: ACETAMINOPHEN TAB 325 MG TAB PO PRN (18:04)
--- NOTE | 2019-07-10 18:04 | ED ---
Wound/Laceration HPI - General Chief Complaint: Wound/Laceration Stated Complaint: abscess on upper leg Time Seen by Provider: 07/10/19 16:08 Source: patient Mode of arrival: ambulatory Limitations: no limitations - History of Present Illness Initial Comments: patient is a 69-year-old female, who is nonambulatory, history of anemia and sepsis, presenting to emergency Department with complaints of a large wound on her right posterior thigh. Patient states she has been going to the wound care clinic once a week for this same wound it has been doing well until last week. Patient states in the last few days the wound has gotten bigger. A home [facility] care nurse looked at the wound today and noticed that it had nearly tripled in size and told her she needed to go to the ER. patient has been feeling of more fatigued in the past few days. Patient denies severe pain in her leg, just soreness. Patient denies having fever, nausea, vomiting. patient states she has been hospitalized before for sepsis and does not want to get that bad again. Reinaldo pena has no other complaints at this time. Upon arrival to the ER, her vital signs are stable. - Related Data Home Medications Medication Instructions Recorded Confirmed Ascorbic Acid [Vitamin C] 500 mg PO DAILY 08/26/17 02/17/19 Cyanocobalamin (Vitamin B-12) 1,000 mcg PO DAILY 08/26/17 02/17/19 [Vitamin B-12] Hydrocodone/Acetaminophen 1 tab PO QID PRN 08/26/17 02/17/19 [Hydrocodon-Acetaminophn 10-325] Leflunomide [Arava] 20 mg PO DAILY 08/26/17 02/17/19 Levothyroxine Sodium [Synthroid] 200 mcg PO DAILY 08/26/17 02/17/19 Multivitamins, Thera [Multivitamin 1 tab PO DAILY 08/26/17 02/17/19 (formulary)] Pregabalin [Lyrica] 100 mg PO BID 08/26/17 02/17/19 fentaNYL 12MCG/HR PATCH [Duragesic 12 mcg TRANSDERM Q72H 08/26/17 02/17/19 12MCG/HR] fentaNYL 25MCG/HR PATCH [Duragesic 25 mcg TRANSDERM Q72H 08/26/17 02/17/19 25MCG/HR] Previous Rx's Medication Instructions Recorded Ferrous Sulfate [Iron] 325 mg PO BID #0 02/20/19 Pantoprazole [Protonix] 40 mg PO AC-BID #60 tablet. 02/20/19 Allergies Allergy/AdvReac Type Severity Reaction Status Date / Time Penicillins Allergy Rash/Hives Verified 07/10/19 15:51 Review of Systems ROS Statement: Those systems with pertinent positive or pertinent negative responses have been documented in the HPI. ROS Other: All systems not noted in ROS Statement are negative. Past Medical History Past Medical History: Deep Vein Thrombosis (DVT), Fibromyalgia, Rheumatoid Arthritis (RA), Skin Disorder, Thyroid Disorder Additional Past Medical History / Comment(s): "LEAKY BLADDER" , "POOR CIRCULATION", HX Wound rt foot 3rd toe, bunion on left foot, PAST RT HIP FX-NO SX DONE. History of Any Multi-Drug Resistant Organisms: MRSA Date of last positivie culture/infection: 02/17/18 MDRO Source:: leg Past Surgical History: Appendectomy, Cholecystectomy, Tonsillectomy Additional Past Surgical History / Comment(s): left foot wound debridement. nodule removed from thyroid. sinus surgery. surgical excision and debridment of sacrum with wound VAC placement on 08/05/15 and sx done(flap) that developed pin hole leak -had 2nd sx to repair". debridement wound care to right lower extremity wound on 08/21/15. Past Anesthesia/Blood Transfusion Reactions: No Reported Reaction Past Psychological History: No Psychological Hx Reported Smoking Status: Never smoker Past Alcohol Use History: None Reported Past Drug Use History: None Reported - Past Family History Mother Family Medical History: AFIB, Cancer Additional Family Medical History / Comment(s): still living at age 91. skin cancer Father Family Medical History: Liver Disease, Rheumatoid Arthritis (RA) Additional Family Medical History / Comment(s): leukemia. at age 72 of liver problem. General Exam - General Exam Comments Initial Comments: GENERAL: Well-appearing, well-nourished and in no acute distress. HEAD: Atraumatic, normocephalic. EYES: Pupils equal round and reactive to light, extraocular movements intact, sclera anicteric, conjunctiva are normal. ENT: TMs normal, nares patent, oropharynx clear without exudates. Moist mucous membranes. NECK: Normal range of motion, supple without lymphadenopathy or JVD. LUNGS: Breath sounds clear to auscultation bilaterally and equal. No wheezes rales or rhonchi. HEART: Regular rate and rhythm without murmurs, rubs or gallops. ABDOMEN: Soft, nontender, normoactive bowel sounds. No guarding, no rebound. No masses appreciated. : Deferred EXTREMITIES: patient has a large open wound on the posterior aspect of the right thigh, approximately 7 x 5 cm. There is mild surrounding erythema, no active drainage. It is mild pain with palpation. Patient also has a smaller wound just distal to larger wound is approximately 2 cm in diameter. Patient has multiple smaller wounds on bilateral lower legs. NEUROLOGICAL: Cranial nerves II through XII grossly intact. Normal speech. PSYCH: Normal mood, normal affect. SKIN: Warm, Dry, normal turgor,. Limitations: no limitations Course Vital Signs 07/10/19 07/10/19 15:51 16:30 Temperature 98.3 F 98.2 F Pulse Rate 101 H 99 Respiratory 18 16 Rate Blood Pressure 115/75 126/75 O2 Sat by Pulse 94 L 93 L Oximetry Medical Decision Making - Medical Decision Making patient is a 69-year-old female presenting with a large wound on her right p osterior thigh. Vital signs are stable. wound culture was obtained and is pending at this time. White count is 12.7, hemoglobin is 8.7, lactic acid is 1.9. CRP is 59.3. I discussed these findings with patient and patient will be admitted for wound care consult as well as infectious disease. Patient is agreeable with this plan of care. Patient was accepted by Dr. Wilkins and consult to Dr. Joya. case discussed with Dr. Bynum. - Lab Data Result diagrams: 07/10/19 16:45 07/10/19 16:45 Lab Results 07/10/19 07/10/19 07/10/19 Range/Units 16:45 16:45 16:45 WBC 12.7 H (3.8-10.6) k/uL RBC 3.38 L (3.80-5.40) m/uL Hgb 8.7 L (11.4-16.0) gm/dL Hct 29.4 L (34.0-46.0) % MCV 86.8 (80.0-100.0) fL MCH 25.8 (25.0-35.0) pg MCHC 29.7 L (31.0-37.0) g/dL RDW 18.7 H (11.5-15.5) % Plt Count 468 H (150-450) k/uL Neutrophils % 94 % Lymphocytes % 3 % Monocytes % 2 % Eosinophils % 0 % Basophils % 0 % Neutrophils # 11.9 H (1.3-7.7) k/uL Lymphocytes # 0.4 L (1.0-4.8) k/uL Monocytes # 0.3 (0-1.0) k/uL Eosinophils # 0.0 (0-0.7) k/uL Basophils # 0.0 (0-0.2) k/uL Hypochromasia Moderate Anisocytosis Slight ESR Cancelled PT (9.0-12.0) sec INR (<1.2) APTT (22.0-30.0) sec Sodium 138 (137-145) mmol/L Potassium 4.3 (3.5-5.1) mmol/L Chloride 104 (98-107) mmol/L Carbon Dioxide 29 (22-30) mmol/L Anion Gap 5 mmol/L BUN 28 H (7-17) mg/dL Creatinine 0.77 (0.52-1.04) mg/dL Est GFR (CKD-EPI)AfAm 90 (>60 ml/min/1.73 sqM) Est GFR (CKD-EPI)NonAf 78 (>60 ml/min/1.73 sqM) Glucose 185 H (74-99) mg/dL Plasma Lactic Acid Darryl 1.9 (0.7-2.0) mmol/L Calcium 9.7 (8.4-10.2) mg/dL Total Bilirubin 0.5 (0.2-1.3) mg/dL AST 21 (14-36) U/L ALT 21 (4-34) U/L Alkaline Phosphatase 97 (38-126) U/L C-Reactive Protein 59.3 H (<10.0) mg/L Total Protein 5.8 L (6.3-8.2) g/dL Albumin 3.0 L (3.5-5.0) g/dL 07/10/19 Range/Units 16:45 WBC (3.8-10.6) k/uL RBC (3.80-5.40) m/uL Hgb (11.4-16.0) gm/dL Hct (34.0-46.0) % MCV (80.0-100.0) fL MCH (25.0-35.0) pg MCHC (31.0-37.0) g/dL RDW (11.5-15.5) % Plt Count (150-450) k/uL Neutrophils % % Lymphocytes % % Monocytes % % Eosinophils % % Basophils % % Neutrophils # (1.3-7.7) k/uL Lymphocytes # (1.0-4.8) k/uL Monocytes # (0-1.0) k/uL Eosinophils # (0-0.7) k/uL Basophils # (0-0.2) k/uL Hypochromasia Anisocytosis ESR PT 11.5 (9.0-12.0) sec INR 1.1 (<1.2) APTT 29.3 (22.0-30.0) sec Sodium (137-145) mmol/L Potassium (3.5-5.1) mmol/L Chloride (98-107) mmol/L Carbon Dioxide (22-30) mmol/L Anion Gap mmol/L BUN (7-17) mg/dL Creatinine (0.52-1.04) mg/dL Est GFR (CKD-EPI)AfAm (>60 ml/min/1.73 sqM) Est GFR (CKD-EPI)NonAf (>60 ml/min/1.73 sqM) Glucose (74-99) mg/dL Plasma Lactic Acid Darryl (0.7-2.0) mmol/L Calcium (8.4-10.2) mg/dL Total Bilirubin (0.2-1.3) mg/dL AST (14-36) U/L ALT (4-34) U/L Alkaline Phosphatase (38-126) U/L C-Reactive Protein (<10.0) mg/L Total Protein (6.3-8.2) g/dL Albumin (3.5-5.0) g/dL Disposition Clinical Impression: Stage 4 pressure ulcer Disposition: ADMITTED IP TO THIS [facility] Condition: Stable Is patient prescribed a controlled substance at d/c from ED?: No Referrals: Cierra Moyer MD [Primary Care Provider] - 1-2 days Decision Date: 07/10/19 Decision Time: 18:04
[2019-07-10] MEDS: SODIUM CHLORIDE 0.9% 1,000 ML IV SCH (18:28)
[2019-07-10 20:16] LABS: Appearance,Urine Clear (Clear); Bacteria,Urine Rare /hpf; Bilirubin,Urine Negative (Negative); Blood,Urine Moderate (Negative); Color,Urine Yellow; Glucose,Urine (UA) Negative (Negative); Ketones,Urine Negative (Negative); Leukocyte Esterase,Urine Large (Negative); Mucus,Urine Rare /hpf; Nitrite,Urine Positive (Negative); Protein,Urine Negative (Negative); RBC,Urine 44 /hpf (0-5); Squamous Epithelial Cell,Urine 5 /hpf (0-4); Urobilinogen,Urine <2.0 mg/dL (<2.0); WBC,Urine 3 /hpf (0-5)
[2019-07-11] MEDS ORDERED: HYDROcodone/APAP 10-325MG 1 EACH TAB PO PRN (08:23)
[2019-07-11] MEDS ORDERED: predniSONE 20 MG TAB PO SCH (09:00)
[2019-07-11] MEDS: MULTIVITAMINS, THERA 1 EACH TAB PO SCH (09:32)
[2019-07-11] MEDS: CYANOCOBALAMIN 500 MCG TAB PO SCH (09:32)
[2019-07-11] MEDS: ASCORBIC ACID 500 MG TAB PO SCH (09:32)
[2019-07-11] MEDS: PREGABALIN 100 MG CAP PO SCH ×2 (09:32→20:45)
[2019-07-11] MEDS: FERROUS SULFATE 325 MG TAB PO SCH ×2 (09:32→20:45)
[2019-07-11] MEDS: SODIUM CHLORIDE 0.9% 1,000 ML IV SCH (12:56)
--- NOTE | 2019-07-11 13:04 | P.CON ---
Consult Note - . Consult date: 07/11/19 Assessment/Plan:: this is a 69-year-old pleasant female who is knowing seen on for a new ulceration to the right gluteus and existing ulcerations to right lower exemity posterior aspect, bilateral lower extremities pretibial. patient was seen by her home care nurse and instructed to go to the emergency room patient states that the area was very tender and was not there on Wednesday when her daughter change the dressings. Patient Santyl to the sites and tolerating well. she has history of pyoderma, venous insufficiency, bilateral chronic hypertension with ulcer and inflammation. ulceration to the right gluteus measures approximaely 6 x 4 x 1 cm with significant amount of slough, exudate and fibrin note. Ulceration to right lower external posterior aspect shows improvement with granulation throughout. Measuring approximately 1.4 x 6.5 x 0.1 cm cluster of 2with fatty layer exposure. right pretibialmeasures approximately 15 x 4.9 cm with fatty layer exposure, serous drainage, adherent Slough exudate minimal granulation. Left lateral pretibial measures approximately 15 x 15.5 x 0.2 cm with fat layer exposure, adherent Slough exudate and granulation to the wound bed. Review Of Systems: Constitutional: No fever, no chills, no night sweats. No weight change. No weakness, fatigue or lethargy. No daytime sleepiness. Integumentary:reports wounds, no lesions. No rash or pruritus. No unusual bruising. No change in hair or nails. Physical exam: General Appearance: Alert, cooperative, no distress, appears stated age. Skin: See HPI all other Skin color, texture, tugor normal, no rashes or lesions. Neurologic: Alert oriented x3 ssessment/plan: 1. Pyoderma. Continue with anti-inflammatory therapy.atient to cone with wound care center appointments. 2. Pressure ulceration to the right gluteus with fatty layer exposure. Awaitingdebridement by surgery. May consider Santyl. 3.chronic venous hypertension with ulcer and inflammation of the right lower extremity. bilateral lower extremities. Apply Santyl, edge to edge ickel and depth, saline moistened gauze, dry gauze, rolled gauze, secure with elastic compression Wrap. Right lower extremity posterior aspect collagen,saline moist secure with paper tape utilize skin prep 4. Chronic venous hypertension with ulcer and inflammation of left lower extremity as noted above 5.venous insufficiency. Continue with elastic compression keep legs elevated. thank you for the consult any questions please contact the wound care center DNP note has been reviewed and discussed with Dr. Joya and the impression and plan of care has been directed as dictated.
[2019-07-11 13:33] VITALS: BMI 34.4
--- NOTE | 2019-07-11 14:05 | P.HPIM ---
History of Present Illness H&P Date: 07/11/19 This is a 69-year-old female patient of Dr. Moyer residing at [facility] with past medical history of rheumatoid arthritis, hypothyroidism, DVT, fibromyalgia, multiple decubitus ulcer, MRSA infection, previous admission for GI bleed secondary to antral ulcer, gastritis and duodenitis requiring blood transfusion, hypothyroidism, chronic kidney disease stage II. Patient complains of large wound on her right posterior thigh. She [facility] under the care of Dr. Medina. Patient states that she developed a new wound possible skin tear on her right buttocks that was not there on her last Wound Center evaluation. She states this became significantly worse very quickly and her home care nurse recommended she go to the emergency center. Patient has been more fatigued in the last couple of days. She denies any significant pain to the back of her leg. No fever, no chills, no nausea or vomiting. She has been in was last seen in the wound healing center on June [address] Medina and notes indicate that her chronic wounds are slowly impr oving with Santyl and oral prednisone. Patient states that she was placed on prednisone by Dr. Medina approximate 6 weeks ago. She also completed a recent course of antibiotics.he states she is not on the prednisone for rheumatoid arthritis. Patient has been on Arava for rheumatoid arthritis. P karishma lives in her own senior apartment. She is able to pivot to get from bed to a chair. Her daughter assists her with showering and she also has [facility] home care in place performing dressing changes during the week and her daughter does dressing changes on the weekend. patient does have history of decubitus ulcer to the right buttocks for which she underwent long-term treatment including wound VAC and flap surgery. Patient presented to [facility] emergency center and patient was found to have a large wound on the right buttocks and multiple wounds on the bilateral lower extremities, right and left pretibial areas, lateral as well and posterior right thigh. She was afebrile, vital signs stable, WBC 12.7, hemoglobin 8.7, platelet count 468, blood sugar 185, BUN 28 creatinine 0.77. Electrolytes and liver function tests within normal limits, lactic acid 1.9, C-reactive protein 59.3, sed rate 44. Urinalysis clear, leukoesterase large, RBCs 44, bacteria rare blood moderate. Patient was given a dose of ceftriaxone and admitted to the [facility] floor and ID consult and wound care consult requested. Review of Systems Constitutional: Reports fatigue, Reports lethargy, Reports malaise, Reports poor appetite, Reports weakness, Denies anorexia, Denies chills, Denies fever Eyes: denies blurred vision, denies pain Ears, nose, mouth and throat: Denies dysphagia, Denies headache, Denies nasal congestion, Denies nasal discharge, Denies sore throat, Denies vertigo Cardiovascular: Denies chest pain, Denies decreased exercise tolerance, Denies dyspnea on exertion, Denies lightheadedness, Denies shortness of breath, Denies syncope Respiratory: Denies cough, Denies cough with sputum, Denies dyspnea, Denies excessive sputum, Denies hemoptysis, Denies home oxygen, Denies respiratory infections, Denies wheezing Gastrointestinal: Denies abdominal pain, Denies diarrhea, Denies nausea, Denies vomiting Genitourinary: Denies dysuria, Denies hematuria, Denies urgency, Denies urinary frequency Musculoskeletal: Reports gait dysfunction, Reports muscle weakness, Denies frequent falls, Denies myalgias Integumentary: Reports color changes, Reports darkening of skin, Reports wounds, Denies pruritus, Denies rash Neurological: Denies change in mentation, Denies change in speech, Denies numbness, Denies vertigo, Denies weakness Psychiatric: Denies anxiety, Denies depression Endocrine: Denies fatigue, Denies weight change Past Medical History Past Medical History: Deep Vein Thrombosis (DVT), Fibromyalgia, Rheumatoid Arthritis (RA), Skin Disorder, Thyroid Disorder Additional Past Medical History / Comment(s): "LEAKY BLADDER" ,"POOR CIRCULATION", HX Wound rt foot 3rd toe, bunion on left foot, PAST RT HIP FX-NO SX DONE. History of Any Multi-Drug Resistant Organisms: MRSA Date of last positivie culture/infection: 02/17/18 MDRO Source:: Leg: lower right Past Surgical History: Appendectomy, Cholecystectomy, Tonsillectomy Additional Past Surgical History / Comment(s): Left foot wound debridement. Nodule removed from thyroid. sinus surgery. surgical excision and debridment of sacrum with wound VAC placement on 08/05/15 and sx done(flap) that developed pin hole leak -had 2nd sx to repair". Debridement wound care to right lower extremity wound on 08/21/15. Past Anesthesia/Blood Transfusion Reactions: No Reported Reaction Past Psychological History: No Psychological Hx Reported Additional Psychological History / Comment(s): Patient lives in [facility] in [place], she lives in handicap apartment. Nurse comes to do wound care: [facility] home care. Patient is a lifelong nonsmoker. She denies any medical marijuana, marijuana, street drug or alcohol use. 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 No recent travel. Smoking Status: Never smoker Past Alcohol Use History: None Reported Additional Past Alcohol Use History / Comment(s): Patient is a lifelong nonsmoker. She uses a walker at home and takes care of herself. She stand pivots to transfer. Past Drug Use History: None Reported - Past Family History Mother Family Medical History: AFIB, Cancer Additional Family Medical History / Comment(s): Past away. skin cancer Father Family Medical History: Liver Disease, Rheumatoid Arthritis (RA) Additional Family Medical History / Comment(s): Leukemia. at age 72 of liver problem. Medications and Allergies Home Medications Medication Instructions Recorded Confirmed Type Ascorbic Acid [Vitamin C] 500 mg PO DAILY 08/26/17 07/10/19 History Cyanocobalamin (Vitamin B-12) 1,000 mcg PO DAILY 08/26/17 07/10/19 History [Vitamin B-12] Hydrocodone/Acetaminophen 1 tab PO Q8H PRN 08/26/17 07/10/19 History [Hydrocodon-Acetaminophn 10-325] Leflunomide [Arava] 20 mg PO DAILY 08/26/17 07/10/19 History Levothyroxine Sodium [Synthroid] 200 mcg PO DAILY 08/26/17 07/10/19 History Multivitamins, Thera [Multivitamin 1 tab PO DAILY 08/26/17 07/10/19 History (formulary)] Pregabalin [Lyrica] 100 mg PO BID 08/26/17 07/10/19 History fentaNYL 12MCG/HR PATCH [Duragesic 12 mcg TRANSDERM Q72H 08/26/17 07/10/19 History 12MCG/HR] fentaNYL 25MCG/HR PATCH [Duragesic 25 mcg TRANSDERM Q72H 08/26/17 07/10/19 History 25MCG/HR] Ferrous Sulfate [Iron] 325 mg PO BID #0 02/20/19 07/10/19 Rx Collagenase [Santyl] 1 applic TOPICAL DAILY 07/10/19 07/10/19 History Collagenase [Santyl] 1 applic TOPICAL DAILY 07/10/19 07/10/19 History Rivaroxaban [Xarelto] 20 mg PO W/BRKFST 07/10/19 07/10/19 History predniSONE 20 mg PO DAILY 07/10/19 07/10/19 History Allergies Allergy/AdvReac Type Severity Reaction Status Date / Time Penicillins Allergy Rash/Hives Verified 07/10/19 18:47 Physical Exam Vitals: Vital Signs Temp Pulse Pulse Resp BP BP Pulse Ox 07/11/19 04:50 98.3 F 83 15 105/70 97 07/10/19 21:00 98.3 F 90 17 111/66 95 07/10/19 19:40 98.1 F 88 17 121/80 95 07/10/19 18:35 97.8 F 88 16 119/78 96 07/10/19 16:30 98.2 F 99 16 126/75 93 L 07/10/19 15:51 98.3 F 101 H 18 115/75 94 L Intake and Output 07/10/19 07/11/19 07/11/19 22:59 06:59 14:59 Intake Total 730 1000 Balance 730 1000 Intake: Intake, IV Titration 250 400 Amount Sodium Chloride 0.9% 1, 200 400 000 ml @ 50 mls/hr IV . Q20H [facility] Rx#:[id number] cefTRIAXone 1 gm In 50 Sodium Chloride 0.9% 50 ml @ 100 mls/hr IVPB ONCE STA Rx#:[id number] Oral 480 600 Other: Voiding Method Bedpan Diaper # Voids 2 3 Weight 106 kg Gen: This is an obese 69-year-old female.patient is resting in bed and appears to be comfortable and in no acute distress. HEENT: Head is atraumatic, normocephalic. Pupils equal, round. Sclerae is anicteric. oral mucous membranes moist. NECK: Supple. No JVD. No lymphadenopathy. No thyromegaly. LUNGS: Clear to auscultation. No wheezes or rhonchi. No intercostal retractions. HEART: Regular rate and rhythm. No murmur. ABDOMEN: Soft. Obese. Bowel sounds are present. No masses. No tenderness. EXTREMITIES: dressings to the lower extremities not removed. There is a large open wound on right buttocks with necrotic tissue andmild surrounding erythema. minimal active drainage. Patient also has 2 small wound distally. She also has multiple smaller wounds to bilateral lower legs. bowel order noted. Please see nursing documentation for detail. Significant nodular deformities bilateral hands secondary to rheumatoid arthritis. NEUROLOGICAL: Patient is awake, alert and oriented x3. Cranial nerves 2 through 12 are grossly intact. Results CBC & Chem 7: 07/10/19 16:45 07/10/19 16:45 Labs: Abnormal Lab Results - Last 24 Hours (Table) 07/10/19 07/10/19 07/10/19 Range/Units 16:45 16:45 16:45 WBC 12.7 H (3.8-10.6) k/uL RBC 3.38 L (3.80-5.40) m/uL Hgb 8.7 L (11.4-16.0) gm/dL Hct 29.4 L (34.0-46.0) % MCHC 29.7 L (31.0-37.0) g/dL RDW 18.7 H (11.5-15.5) % Plt Count 468 H (150-450) k/uL Neutrophils # 11.9 H (1.3-7.7) k/uL Lymphocytes # 0.4 L (1.0-4.8) k/uL ESR 44 H (0-20) mm/hr BUN 28 H (7-17) mg/dL Glucose 185 H (74-99) mg/dL C-Reactive Protein 59.3 H (<10.0) mg/L Total Protein 5.8 L (6.3-8.2) g/dL Albumin 3.0 L (3.5-5.0) g/dL Urine Blood (Negative) Urine Nitrite (Negative) Ur Leukocyte Esterase (Negative) Urine RBC (0-5) /hpf Ur Squamous Epith Cells (0-4) /hpf Urine Bacteria (None) /hpf Urine Mucus (None) /hpf 07/10/19 Range/Units 19:50 WBC (3.8-10.6) k/uL RBC (3.80-5.40) m/uL Hgb (11.4-16.0) gm/dL Hct (34.0-46.0) % MCHC (31.0-37.0) g/dL RDW (11.5-15.5) % Plt Count (150-450) k/uL Neutrophils # (1.3-7.7) k/uL Lymphocytes # (1.0-4.8) k/uL ESR (0-20) mm/hr BUN (7-17) mg/dL Glucose (74-99) mg/dL C-Reactive Protein (<10.0) mg/L Total Protein (6.3-8.2) g/dL Albumin (3.5-5.0) g/dL Urine Blood Moderate H (Negative) Urine Nitrite Positive H (Negative) Ur Leukocyte Esterase Large H (Negative) Urine RBC 44 H (0-5) /hpf Ur Squamous Epith Cells 5 H (0-4) /hpf Urine Bacteria Rare H (None) /hpf Urine Mucus Rare H (None) /hpf Microbiology - Last 24 Hours (Table) 07/10/19 16:28 Wound Culture - Preliminary Buttock Thrombosis Risk Factor Assmnt - DVT/VTE Prophylaxis DVT/VTE Prophylaxis: Pharmacologic Prophylaxis ordered - Choose All That Apply Each Factor Represents 1 point: Obesity (BMI >25), Swollen legs (current) Each Risk Factor Represents 2 Points: Age 61-74 years Each Risk Factor Represents 3 Points: History of DVT/PE Other congenital or acquired thrombophilia - If yes, enter type in comment: No Thrombosis Risk Factor Assessment Total Risk Factor Score: 7 Thrombosis Risk Factor Assessment Level: High Risk Assessment and Plan Plan: 1. Stage IV decubitus ulcer right buttocks. Consult with Dr. Joya. Patient received 1 dose of ceftriaxone. Previous wound culture positive for Proteus, enterococcus, Streptococcus, Pseudomonas. She also has history of MRSA. Wound consult for local wound care . Consult with Dr. Doss for debridement. Bone scan will be ordered to rule out osteomyelitis. Patient was placed on prednisone [address] Medina approximate 6 weeks ago. This will be decreased to 15 mg daily with plan to taper and discontinue. 2. Chronic lower extremity ulcers secondary to peripheral vascular disease. Wound care has been ordered by wound care team. Dr. Joya on consult. Patient normally follows with Dr. Medina in the wound healing Center. 3. Rheumatoid arthritis with chronic pain. Arava on hold. Continue fentanyl patch 37 g per hour every 72 hours, Proctor 10 one every 6 hours, Lyrica 100 mg twice daily. 4. History of DVT. Xarelto placed on hold for anticipated wound debridement. 5. Hypothyroidism. Continue levothyroxine 200 g daily. 6. Chronic kidney disease stage II, stable. 7. Anemia of chronic disease. Continue ferrous sulfate 325 mg twice daily. 8. DVT prophylaxis. Xarelto. 9. GI prophylaxis. Pepcid. Patient will be admitted to the hospital for a minimum of 2 night stay. Discharge plan: most likely discharge to subacute rehab once stable. Impression and plan of care have been directed as dictated by the signing physician. Arlene Darnell nurse practitioner acting as scribe for signing physician.
[2019-07-11] MEDS: COLLAGENASE 250 UNIT/GM OINTMENT 30 GM TUBE TOPICAL SCH (14:17)
--- NOTE | 2019-07-11 14:20 | P.CONS ---
History of Present Illness - Reason for Consult Consult date: 07/11/19 decubitus ulcers - History of Present Illness This is a 69-year-old female patient with past medical history of r heumatoid arthritis, hypothyroidism, DVT, fibromyalgia, multiple decubitus ulcer, MRSA infection, previous admission for GI bleed secondary to antral ulcer, gastritis and duodenitis requiring blood transfusion, hypothyroidism, chronic kidney disease stage II. Patient complains of large wound on her right posterior thigh. [facility] under the care of Dr. Medina. Patient states that she developed a new wound possible skin tear on her right buttocks that was not there on her last Wound Center evaluation. She states this became significantly worse very quickly and her home care nurse recommended she go to the emergency center. Patient has been more fatigued in the last couple of days. She denies any significant pain to the back of her leg. No fever, no chills, no nausea or vomiting. She has been in was last seen in the wound healing center on June [address] Medina and notes indicate that her chronic wounds are slowly improving with Santyl and oral prednisone. Patient states that she was placed on prednisone by Dr. Medina approximate 6 weeks ago. She also completed a recent course of antibiotics.he states she is not on the prednisone for rheumatoid arthritis. Patient has been on Arava for rheumatoid arthritis. Patient lives in her own senior apartment. She is able to pivot to get from bed to a chair. Her daughter assists her with showering and she also has [facility] home care in place performing dressing changes during the week and her daughter does dressing changes on the weekend. patient does have history of decubitus ulcer to the right buttocks for which she underwent long-term treatment including wound VAC and flap surgery. Patient presented to [facility] emergency center and patient was found to have a large wound on the right buttocks and multiple wounds on the bilateral lower extremities, right and left pretibial areas, lateral as well and posterior right thigh. She was afebrile, vital signs stable, WBC 12.7, hemoglobin 8.7, platelet count 468, blood sugar 185, BUN 28 creatinine 0.77. Electrolytes and liver function tests within normal limits, lactic acid 1.9, C- reactive protein 59.3, sed rate 44. Urinalysis clear, leukoesterase large, RBCs 44, bacteria rare blood moderate. Patient was given a dose of ceftriaxone and admitted to the [facility] floor. Patient has been seen by wound care team and local wound care addressed. Consult has been added for Dr. Doss for debridem ent and bone scan ordered to rule out osteomyelitis. Patient's discharge plan is to [facility] for subacute rehab. Review of Systems Constitutional: Reports fatigue, Reports lethargy, Reports malaise, Reports poor appetite, Reports weakness, Denies anorexia, Denies chills, Denies fever Eyes: denies blurred vision, denies pain Ears, nose, mouth and throat: Denies dysphagia, Denies headache, Denies nasal congestion, Denies nasal discharge, Denies sore throat, Denies vertigo Cardiovascular: Denies chest pain, Denies decreased exercise tolerance, Denies dyspnea on exertion, Denies lightheadedness, Denies shortness of breath, Denies syncope Respiratory: Denies cough, Denies cough with sputum, Denies dyspnea, Denies excessive sputum, Denies hemoptysis, Denies home oxygen, Denies respiratory infections, Denies wheezing Gastrointestinal: Denies abdominal pain, Denies diarrhea, Denies nausea, Denies vomiting Genitourinary: Denies dysuria, Denies hematuria, Denies urgency, Denies urinary frequency Musculoskeletal: Reports gait dysfunction, Reports muscle weakness, Denies frequent falls, Denies myalgias Integumentary: Reports color changes, Reports darkening of skin, Reports wounds, Denies pruritus, Denies rash Neurological: Denies change in mentation, Denies change in speech, Denies numbness, Denies vertigo, Denies weakness Psychiatric: Denies anxiety, Denies depression Endocrine: Denies fatigue, Denies weight change Past Medical History Past Medical History: Deep Vein Thrombosis (DVT), Fibromyalgia, Rheumatoid Arthritis (RA), Skin Disorder, Thyroid Disorder Additional Past Medical History / Comment(s): "LEAKY BLADDER" ,"POOR CIRCULATION", HX Wound rt foot 3rd toe, bunion on left foot, PAST RT HIP FX-NO SX DONE. History of Any Multi-Drug Resistant Organisms: MRSA Year Discovered:: 02/17/18 MDRO Source:: Leg: lower right Past Surgical History: Appendectomy, Cholecystectomy, Tonsillectomy Additional Past Surgical History / Comment(s): Left foot wound debridement. Nodule removed from thyroid. sinus surgery. surgical excision and debridment of sacrum with wound VAC placement on 08/05/15 and sx done(flap) that developed pin hole leak -had 2nd sx to repair". Debridement wound care to right lower extremity wound on 08/21/15. Past Anesthesia/Blood Transfusion Reactions: No Reported Reaction Past Psychological History: No Psychological Hx Reported Additional Psychological History / Comment(s): Patient lives in [facility] in [place], she lives in handicap apartment. Nurse comes to do wound care: [facility] care. Patient is a lifelong nonsmoker. She denies any medical marijuana, marijuana, street drug or alcohol use. 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 No recent travel. Smoking Status: Never smoker Past Alcohol Use History: None Reported Additional Past Alcohol Use History / Comment(s): Patient is a lifelong nonsmoker. She uses a walker at home and takes care of herself. She stand pivots to transfer. Past Drug Use History: None Reported - Past Family History Mother Family Medical History: AFIB, Cancer Additional Family Medical History / Comment(s): Past away. skin cancer Father Family Medical History: Liver Disease, Rheumatoid Arthritis (RA) Additional Family Medical History / Comment(s): Leukemia. at age 72 of liver problem. Medications and Allergies Home Medications Medication Instructions Recorded Confirmed Type Ascorbic Acid [Vitamin C] 500 mg PO DAILY 08/26/17 07/10/19 History Cyanocobalamin (Vitamin B-12) 1,000 mcg PO DAILY 08/26/17 07/10/19 History [Vitamin B-12] Hydrocodone/Acetaminophen 1 tab PO Q8H PRN 08/26/17 07/10/19 History [Hydrocodon-Acetaminophn 10-325] Leflunomide [Arava] 20 mg PO DAILY 08/26/17 07/10/19 History Levothyroxine Sodium [Synthroid] 200 mcg PO DAILY 08/26/17 07/10/19 History Multivitamins, Thera [Multivitamin 1 tab PO DAILY 08/26/17 07/10/19 History (formulary)] Pregabalin [Lyrica] 100 mg PO BID 08/26/17 07/10/19 History fentaNYL 12MCG/HR PATCH [Duragesic 12 mcg TRANSDERM Q72H 08/26/17 07/10/19 History 12MCG/HR] fentaNYL 25MCG/HR PATCH [Duragesic 25 mcg TRANSDERM Q72H 08/26/17 07/10/19 History 25MCG/HR] Ferrous Sulfate [Iron] 325 mg PO BID #0 02/20/19 07/10/19 Rx Collagenase [Santyl] 1 applic TOPICAL DAILY 07/10/19 07/10/19 History Collagenase [Santyl] 1 applic TOPICAL DAILY 07/10/19 07/10/19 History Rivaroxaban [Xarelto] 20 mg PO W/BRKFST 07/10/19 07/10/19 History predniSONE 20 mg PO DAILY 07/10/19 07/10/19 History Allergies Allergy/AdvReac Type Severity Reaction Status Date / Time Penicillins Allergy Rash/Hives Verified 07/10/19 18:47 Physical Exam Vitals: Vital Signs Temp Pulse Pulse Resp BP BP Pulse Ox 07/11/19 12:45 98.3 F 89 16 127/68 96 07/11/19 04:50 98.3 F 83 15 105/70 97 07/10/19 21:00 98.3 F 90 17 111/66 95 07/10/19 19:40 98.1 F 88 17 121/80 95 07/10/19 18:35 97.8 F 88 16 119/78 96 07/10/19 16:30 98.2 F 99 16 126/75 93 L 07/10/19 15:51 98.3 F 101 H 18 115/75 94 L Intake and Output 07/10/19 07/11/19 07/11/19 22:59 06:59 14:59 Intake Total 730 1000 Balance 730 1000 Intake: Intake, IV Titration 250 400 Amount Sodium Chloride 0.9% 1, 200 400 000 ml @ 50 mls/hr IV . Q20H HANY Rx#:[id number] cefTRIAXone 1 gm In 50 Sodium Chloride 0.9% 50 ml @ 100 mls/hr IVPB ONCE STA Rx#:[id number] Oral 480 600 Other: Voiding Method Bedpan Diaper # Voids 2 3 Weight 106 kg 106 kg Gen: This is an obese 69-year-old female.patient is resting in bed and appears to be comfortable and in no acute distress. HEENT: Head is atraumatic, normocephalic. Pupils equal, round. Sclerae is anicteric. oral mucous membranes moist. NECK: Supple. No JVD. No lymphadenopathy. No thyromegaly. LUNGS: Clear to auscultation. No wheezes or rhonchi. No intercostal retractions. HEART: Regular rate and rhythm. No murmur. ABDOMEN: Soft. Obese. Bowel sounds are present. No masses. No tenderness. EXTREMITIES: dressings to the lower extremities not removed. There is a large open wound on right buttocks with necrotic tissue andmild surrounding erythema. minimal active drainage. Patient also has 2 small wound distally. She also has multiple smaller wounds to bilateral lower legs. bowel order noted. Please see nursing documentation for detail. Significant nodular deformities bilateral hands secondary to rheumatoid arthritis. NEUROLOGICAL: Patient is awake, alert and oriented x3. Cranial nerves 2 through 12 are grossly intact. Results Results: Laboratory Results WBC 12.7 k/uL (3.8-10.6) H 07/10/19 16:45 RBC 3.38 m/uL (3.80-5.40) L 07/10/19 16:45 Hgb 8.7 gm/dL (11.4-16.0) L 07/10/19 16:45 Hct 29.4 % (34.0-46.0) L 07/10/19 16:45 MCV 86.8 fL (80.0-100.0) 07/10/19 16:45 MCH 25.8 pg (25.0-35.0) 07/10/19 16:45 MCHC 29.7 g/dL (31.0-37.0) L 07/10/19 16:45 RDW 18.7 % (11.5-15.5) H 07/10/19 16:45 Plt Count 468 k/uL (150-450) H 07/10/19 16:45 Neutrophils % 94 % 07/10/19 16:45 Lymphocytes % 3 % 07/10/19 16:45 Monocytes % 2 % 07/10/19 16:45 Eosinophils % 0 % 07/10/19 16:45 Basophils % 0 % 07/10/19 16:45 Neutrophils # 11.9 k/uL (1.3-7.7) H 07/10/19 16:45 Lymphocytes # 0.4 k/uL (1.0-4.8) L 07/10/19 16:45 Monocytes # 0.3 k/uL (0-1.0) 07/10/19 16:45 Eosinophils # 0.0 k/uL (0-0.7) 07/10/19 16:45 Basophils # 0.0 k/uL (0-0.2) 07/10/19 16:45 Hypochromasia Moderate 07/10/19 16:45 Anisocytosis Slight 07/10/19 16:45 ESR 44 mm/hr (0-20) H 07/10/19 16:45 ESR Cancelled 07/10/19 16:45 PT 11.5 sec (9.0-12.0) 07/10/19 16:45 INR 1.1 (<1.2) 07/10/19 16:45 APTT 29.3 sec (22.0-30.0) 07/10/19 16:45 Sodium 138 mmol/L (137-145) 07/10/19 16:45 Potassium 4.3 mmol/L (3.5-5.1) 07/10/19 16:45 Chloride 104 mmol/L (98-107) 07/10/19 16:45 Carbon Dioxide 29 mmol/L (22-30) 07/10/19 16:45 Anion Gap 5 mmol/L 07/10/19 16:45 BUN 28 mg/dL (7-17) H 07/10/19 16:45 Creatinine 0.77 mg/dL (0.52-1.04) 07/10/19 16:45 Est GFR (CKD-EPI)AfAm 90 (>60 ml/min/1.73 sqM) 07/10/19 16:45 Est GFR (CKD-EPI)NonAf 78 (>60 ml/min/1.73 sqM) 07/10/19 16:45 Glucose 185 mg/dL (74-99) H 07/10/19 16:45 Plasma Lactic Acid Darryl 1.9 mmol/L (0.7-2.0) 07/10/19 16:45 Calcium 9.7 mg/dL (8.4-10.2) 07/10/19 16:45 Total Bilirubin 0.5 mg/dL (0.2-1.3) 07/10/19 16:45 AST 21 U/L (14-36) 07/10/19 16:45 ALT 21 U/L (4-34) 07/10/19 16:45 Alkaline Phosphatase 97 U/L (38-126) 07/10/19 16:45 C-Reactive Protein 59.3 mg/L (<10.0) H 07/10/19 16:45 Total Protein 5.8 g/dL (6.3-8.2) L 07/10/19 16:45 Albumin 3.0 g/dL (3.5-5.0) L 07/10/19 16:45 Urine Color Yellow 07/10/19 19:50 Urine Appearance Clear (Clear) 07/10/19 19:50 Urine pH 5.0 (5.0-8.0) 07/10/19 19:50 Ur Specific Crystal 1.020 (1.001-1.035) 07/10/19 19:50 Urine Protein Negative (Negative) 07/10/19 19:50 Urine Glucose (UA) Negative (Negative) 07/10/19 19:50 Urine Ketones Negative (Negative) 07/10/19 19:50 Urine Blood Moderate (Negative) H 07/10/19 19:50 Urine Nitrite Positive (Negative) H 07/10/19 19:50 Urine Bilirubin Negative (Negative) 07/10/19 19:50 Urine Urobilinogen <2.0 mg/dL (<2.0) 07/10/19 19:50 Ur Leukocyte Esterase Large (Negative) H 07/10/19 19:50 Urine RBC 44 /hpf (0-5) H 07/10/19 19:50 Urine WBC 3 /hpf (0-5) 07/10/19 19:50 Ur Squamous Epith Cells 5 /hpf (0-4) H 07/10/19 19:50 Urine Bacteria Rare /hpf (None) H 07/10/19 19:50 Urine Mucus Rare /hpf (None) H 07/10/19 19:50 CBC & Chem 7: 07/10/19 16:45 07/10/19 16:45 Labs: Abnormal Lab Results - Last 24 Hours (Table) 07/10/19 07/10/19 07/10/19 Range/Units 16:45 16:45 16:45 WBC 12.7 H (3.8-10.6) k/uL RBC 3.38 L (3.80-5.40) m/uL Hgb 8.7 L (11.4-16.0) gm/dL Hct 29.4 L (34.0-46.0) % MCHC 29.7 L (31.0-37.0) g/dL RDW 18.7 H (11.5-15.5) % Plt Count 468 H (150-450) k/uL Neutrophils # 11.9 H (1.3-7.7) k/uL Lymphocytes # 0.4 L (1.0-4.8) k/uL ESR 44 H (0-20) mm/hr BUN 28 H (7-17) mg/dL Glucose 185 H (74-99) mg/dL C-Reactive Protein 59.3 H (<10.0) mg/L Total Protein 5.8 L (6.3-8.2) g/dL Albumin 3.0 L (3.5-5.0) g/dL Urine Blood (Negative) Urine Nitrite (Negative) Ur Leukocyte Esterase (Negative) Urine RBC (0-5) /hpf Ur Squamous Epith Cells (0-4) /hpf Urine Bacteria (None) /hpf Urine Mucus (None) /hpf 07/10/19 Range/Units 19:50 WBC (3.8-10.6) k/uL RBC (3.80-5.40) m/uL Hgb (11.4-16.0) gm/dL Hct (34.0-46.0) % MCHC (31.0-37.0) g/dL RDW (11.5-15.5) % Plt Count (150-450) k/uL Neutrophils # (1.3-7.7) k/uL Lymphocytes # (1.0-4.8) k/uL ESR (0-20) mm/hr BUN (7-17) mg/dL Glucose (74-99) mg/dL C-Reactive Protein (<10.0) mg/L Total Protein (6.3-8.2) g/dL Albumin (3.5-5.0) g/dL Urine Blood Moderate H (Negative) Urine Nitrite Positive H (Negative) Ur Leukocyte Esterase Large H (Negative) Urine RBC 44 H (0-5) /hpf Ur Squamous Epith Cells 5 H (0-4) /hpf Urine Bacteria Rare H (None) /hpf Urine Mucus Rare H (None) /hpf Microbiology - Last 24 Hours (Table) 07/10/19 16:28 Gram Stain - Preliminary Buttock Wound Culture - Preliminary Assessment and Plan Plan: this is a 69-year-old female who presents for hospital with a stage IV decubitus ulcer right buttocks. Patient received 1 dose of ceftriaxone. Antibiotic therapy will be addressed. Previous wound culture positive for Proteus, enterococcus, Streptococcus, Pseudomonas. She also has history of MRSA. Wound culture is in progress for this admission. Local wound care has been addressed. Consult with Dr. Doss for debridement is in place. Bone scan ordered to rule out osteomyelitis. Patient was placed on prednisone [address] Medina approximate 6 weeks ago. This has been decreased to 15 mg monik ly by attending with plan to taper and discontinue. Patient is known to have chronic lower extremity ulcers secondary to peripheral vascular disease. Wound care has been ordered by wound care team to address these wounds as well. Arava for her chronic rheumatoid arthritis is on hold. Continue supportive care. Further recommendations as patient progresses. The above dictated assessment and findings were discussed with Dr. Joya. The impression and plan of care have been directed as dictated. Arlene Darnell nurse practitioner acting as scribe for Dr. Joya.
[2019-07-11] MEDS: HYDROcodone/APAP 10-325MG 1 EACH TAB PO PRN (14:42)
[2019-07-11] MEDS: MEROPENEM 2 GM in SODIUM CHLORIDE 0.9% 100 ML IVPB SCH ×2 (18:43→23:55)
--- NOTE | 2019-07-11 20:54 | P.GSCN ---
History of Present Illness Consult date: 07/11/19 Reason for Consult: Right hip ulcer History of present illness: 69-year-old female with advanced rheumatoid arthritis. Mostly non-mobile. Linda palma has history of previous decubitus ulcers involving the right buttocks and hip. Patient underwent previous flap repair by Dr. Quezada. Recently noticed new wound involving the right buttocks. Mild pain at times. Some drainage. We were consulted for surgical debridement. Patient follows at the wound care center with Dr. Joya. Review of Systems The patient denies any acute changes in his vision or hearing, no dysphagia or odynophagia, no chest pain or shortness of breath, no dysuria or hematuria, no headache, no runny nose, no rectal bleeding or melena, no unexplained weight loss Past Medical History Past Medical History: Deep Vein Thrombosis (DVT), Fibromyalgia, Rheumatoid Arthritis (RA), Skin Disorder, Thyroid Disorder Additional Past Medical History / Comment(s): "LEAKY BLADDER" ,"POOR CIRCULATION", HX Wound rt foot 3rd toe, bunion on left foot, PAST RT HIP FX-NO SX DONE. History of Any Multi-Drug Resistant Organisms: MRSA Year Discovered:: 02/17/18 MDRO Source:: Leg: lower right Past Surgical History: Appendectomy, Cholecystectomy, Tonsillectomy Additional Past Surgical History / Comment(s): Left foot wound debridement. Nodule removed from thyroid. sinus surgery. surgical excision and debridment of sacrum with wound VAC placement on 08/05/15 and sx done(flap) that developed pin hole leak -had 2nd sx to repair". Debridement wound care to right lower extremity wound on 08/21/15. Past Anesthesia/Blood Transfusion Reactions: No Reported Reaction Past Psychological History: No Psychological Hx Reported Additional Psychological History / Comment(s): Patient lives in [facility], she lives in [facility] apartment. Nurse comes to do wound care: [facility] care. Patient is a lifelong nonsmoker. She denies any medical marijuana, marijuana, street drug or alcohol use. 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 No recent travel. Smoking Status: Never smoker Past Alcohol Use History: None Reported Additional Past Alcohol Use History / Comment(s): Patient is a lifelong nonsmoker. She uses a walker at home and takes care of herself. She stand pivots to transfer. Past Drug Use History: None Reported - Past Family History Mother Family Medical History: AFIB, Cancer Additional Family Medical History / Comment(s): Past away. skin cancer Father Family Medical History: Liver Disease, Rheumatoid Arthritis (RA) Additional Family Medical History / Comment(s): Leukemia. at age 72 of liver problem. Medications and Allergies Home Medications Medication Instructions Recorded Confirmed Type Ascorbic Acid [Vitamin C] 500 mg PO DAILY 08/26/17 07/10/19 History Cyanocobalamin (Vitamin B-12) 1,000 mcg PO DAILY 08/26/17 07/10/19 History [Vitamin B-12] Hydrocodone/Acetaminophen 1 tab PO Q8H PRN 08/26/17 07/10/19 History [Hydrocodon-Acetaminophn 10-325] Leflunomide [Arava] 20 mg PO DAILY 08/26/17 07/10/19 History Levothyroxine Sodium [Synthroid] 200 mcg PO DAILY 08/26/17 07/10/19 History Multivitamins, Thera [Multivitamin 1 tab PO DAILY 08/26/17 07/10/19 History (formulary)] Pregabalin [Lyrica] 100 mg PO BID 08/26/17 07/10/19 History fentaNYL 12MCG/HR PATCH [Duragesic 12 mcg TRANSDERM Q72H 08/26/17 07/10/19 History 12MCG/HR] fentaNYL 25MCG/HR PATCH [Duragesic 25 mcg TRANSDERM Q72H 08/26/17 07/10/19 History 25MCG/HR] Ferrous Sulfate [Iron] 325 mg PO BID #0 02/20/19 07/10/19 Rx Collagenase [Santyl] 1 applic TOPICAL DAILY 07/10/19 07/10/19 History Collagenase [Santyl] 1 applic TOPICAL DAILY 07/10/19 07/10/19 History Rivaroxaban [Xarelto] 20 mg PO W/BRKFST 07/10/19 07/10/19 History predniSONE 20 mg PO DAILY 07/10/19 07/10/19 History Allergies Allergy/AdvReac Type Severity Reaction Status Date / Time Penicillins Allergy Rash/Hives Verified 07/10/19 18:47 Surgical - Exam Vital Signs Temp Pulse Resp BP Pulse Ox 98.3 F 101 H 18 115/75 94 L 07/10/19 15:51 07/10/19 15:51 07/10/19 15:51 07/10/19 15:51 07/10/19 15:51 Physical exam: General: Well-developed, well-nourished HEENT: Normocephalic, sclerae nonicteric Abdomen: Nontender, nondistended Extremities: Mild edema,Wound right buttock at apex of previous posterior thigh incision site measuring 7 x 5 cm, necrotic subcutaneous fat and muscle noted, no visualized bone Neuro: Alert and oriented Results - Labs 07/10/19 16:45 07/10/19 16:45 Microbiology - Last 24 Hours (Table) 07/10/19 16:28 Gram Stain - Preliminary Buttock Wound Culture - Preliminary Assessment and Plan (1) Stage 4 pressure ulcer Narrative/Plan: We'll proceed with bedside debridement of the right hip wound. Risks of bleeding, infection, possible need for further debridement reviewed. She understands and wishes to proceed. Current Visit: Yes Status: Acute Code(s): L89.94 - PRESSURE ULCER OF UNSPECIFIED SITE, STAGE 4 SNOMED Code(s): 437634700
--- NOTE | 2019-07-11 20:55 | P.PCN ---
Date of Procedure: 07/11/19 Procedure(s) Performed: PREOPERATIVE DIAGNOSIS: Right buttock decubitus ulcer POSTOPERATIVE DIAGNOSIS: Same PROCEDURE: Debridement SURGEON: Selam EBL: 1 cc ANESTHESIA: None COMPLICATIONS: None OPERATIVE PROCEDURE: Patient placed in the left pubis position. The patient's right buttock ulcer was debrided sharply in an excisional manner with scissors. Necrotic fat skin and muscle were excised fully. Healthy tissue was then identified. Sterile dressings applied. DISPOSITION: Stable
--- NOTE | 2019-07-11 23:07 | P.CON ---
Consult Note - . Consult date: 07/11/19 Assessment/Plan:: This is a 69-year-old female patient with past medical history of rheumatoid arthritis, hypothyroidism, DVT, fibromyalgia, multiple decubitus ulcer, MRSA infection, previous admission for GI bleed secondary to antral ulcer, gastritis and duodenitis requiring blood transfusion, hypothyroidism, chronic kidney disease stage II. Patient complains of large wound on her right posterior thigh. [facility] the care of Dr. Medina. Patient states that she developed a new wound possible skin tear on her right buttocks that was not there on her last Wound Center evaluation. She states this became significantly worse very quickly and her home care nurse recommended she go to the emergency center. Patient has been more fatigued in the last couple of days. She denies any significant pain to the back of her leg. No fever, no chills, no nausea or vomiting. She has been in was last seen in the wound healing center on June [address] Medina and notes indicate that her chronic wounds are slowly improving with Santyl and oral prednisone. Patient states that she was placed on prednisone by Dr. Medina approximate 6 weeks ago. She also completed a recent course of antibiotics.he states she is not on the prednisone for rheumatoid arthritis. Patient has been on Arava for rheumatoid arthritis. Patient lives in her own senior apartment. She is able to pivot to get from bed to a chair. Her daughter assists her with showering and she also has [facility] home care in place performing dressing changes during the week and her daughter does dressing changes on the weekend. patient does have history of decubitus ulcer to the right buttocks for which she underwent long-term treatment including wound VAC and flap surgery. Patient presented to [facility] emergency center and patient was found to have a large wound on the right buttocks and multiple wounds on the bilateral lower extremities, right and left pretibial areas, lateral as well and posterior right thigh. She was afebrile, vital signs stable, WBC 12.7, hemoglobin 8.7, platelet count 468, blood sugar 185, BUN 28 creatinine 0.77. Electrolytes and liver function tests within normal limits, lactic acid 1.9, C- reactive protein 59.3, sed rate 44. Urinalysis clear, leukoesterase large, RBCs 44, bacteria rare blood moderate. Patient was given a dose of ceftriaxone and admitted to the [facility] floor. Patient has been seen by wound care team and local wound care addressed. Consult has been added for Dr. oDss for debridement and bone scan ordered to rule out osteomyelitis. Patient's discharge plan is to [facility] for subacute rehab. 07/11/2019 the patient feels very poorly. She has had a minimal fall with what she thought was a minimal abrasion to her right hip but is read up with the very large pressure ulceration with necrosis of underlying tissue. She will be seen by the surgeon and surgical debridement of the site as expected. The chronic inflammation to her lower extremities without acute change is as per who is seen her recently. Of the limb she denies other HEENT difficulties. Does not believe that she's had fever but she had chills. Please see nursing apprentice photographer for the extensive ulcerations. If the surgeon has seen her if the base is clean and negative pressure therapy will likely be utilized to help with this problem. Wound cultures are obtained and antibiotic therapy is being utilized this point in time with meropenem given her recent cultures that showed evidence of Pseudomonas as well as other pathogens. The wound team has evaluated the limbs and we are continue local wound care. I agree with evaluation, assessment and plan as dictated by nurse practitioner Mrs. Arlene Darnell.
[2019-07-12] MEDS: LEVOTHYROXINE 100 MCG TAB PO SCH (05:57)
[2019-07-12] MEDS: HYDROcodone/APAP 10-325MG 1 EACH TAB PO PRN ×3 (05:59→23:29)
[2019-07-12] MEDS: PREGABALIN 100 MG CAP PO SCH ×2 (08:21→20:21)
[2019-07-12] MEDS: CYANOCOBALAMIN 500 MCG TAB PO SCH (08:21)
[2019-07-12] MEDS: FERROUS SULFATE 325 MG TAB PO SCH ×2 (08:21→20:21)
[2019-07-12] MEDS: ASCORBIC ACID 500 MG TAB PO SCH (08:21)
[2019-07-12] MEDS: predniSONE 5 MG TAB PO SCH (08:21)
[2019-07-12] MEDS: MULTIVITAMINS, THERA 1 EACH TAB PO SCH (08:21)
[2019-07-12] MEDS: MEROPENEM 2 GM in SODIUM CHLORIDE 0.9% 100 ML IVPB SCH ×2 (08:27→18:11)
[2019-07-12] MEDS: COLLAGENASE 250 UNIT/GM OINTMENT 30 GM TUBE TOPICAL SCH (08:27)
--- NOTE | 2019-07-12 13:58 | NM ---
EXAMINATION TYPE: NM bone 3 phase DATE OF EXAM: 07/12/2019 COMPARISON: Plain film of the abdomen 02/17/2019 HISTORY: Stage IV decubitus ulcer right buttocks Triple phase bone scintigraphy was performed following the injection of 24.0 mCi Tc 99m MDP. Immedia te images and 5.25 hours post injection images acquired. FINDINGS: Left lower blood pool activity shows some increased uptake at the level of the posterior ri ght hip. There is increased activity noted at the left hip compatible with marked osteoarthritic capellan ge. No increased reversible uptake noted at the level of the sacrum or right ischial tuberosity to guaman ggest osteomyelitis. Uptake in the lower lumbar spine is likely due to degenerative disc changes. There is no significant abnormal accumulation of radiotracer to suggest metastatic disease to the bon e or other significant abnormality. IMPRESSION: Findings suggest cellulitis. Osteomyelitis is not evident.
--- NOTE | 2019-07-12 15:07 | P.PN ---
Subjective Progress Note Date: 07/12/19 This is a 69-year-old female patient with past medical history of rheumatoid arthritis, hypothyroidism, DVT, fibromyalgia, multiple decubitus ulcer, MRSA infection, previous admission for GI bleed secondary to antral ulcer, gastritis and duodenitis requiring blood transfusion, hypothyroidism, ch ronic kidney disease stage II. Patient complains of large wound on her right posterior thigh. She has been a [facility] under the care of Dr. Medina. Patient states that she developed a new wound possible skin tear on her right buttocks that was not there on her last Wound Center evaluation. She states this became significantly worse very quickly and her home care nurse recommended she go to the emergency center. Patient has been more fatigued in the last couple of days. She denies any significant pain to the back of her leg. No fever, no chills, no nausea or vomiting. She has been in was last seen in the wound healing center on June [address] Medina and notes indicate that her chronic wounds are slowly improving with Santyl and oral prednisone. Patient states that she was placed on prednisone by Dr. Medina approximate 6 weeks ago. She also completed a recent course of antibiotics.he states she is not on the prednisone for rheumatoid arthritis. Patient has been on Arava for rheumatoid arthritis. Patient lives in her own senior apartment. She is able to pivot to get from bed to a chair. Her daughter assists her with showering and she also has [facility] home care in place performing dressing changes during the week and her daughter does dressing changes on the weekend. patient does have history of decubitus ulcer to the right buttocks for which she underwent long-term treatment including wound VAC and flap surgery. Patient presented to [facility] emergency center and patient was found to have a large wound on the right buttocks and multiple wounds on the bilateral lower extremities, right and left pretibial areas, lateral as well and posterior right thigh. She was afebrile, vital signs stable, WBC 12.7, hemoglobin 8.7, platelet count 468, blood sugar 185, BUN 28 creatinine 0.77. Electrolytes and liver function tests within normal limits, lactic acid 1.9, C- reactive protein 59.3, sed rate 44. Urinalysis clear, leukoesterase large, RBCs 44, bacteria rare blood moderate. Patient was given a dose of ceftriaxone and admitted to the [facility] floor. Patient has been seen by wound care team and local wound care addressed. Consult has been added for Dr. Doss for debridement and bone scan ordered to rule out osteomyelitis. Patient's discharge plan is to [facility] for subacute rehab. 07/12 and patient examined at bedside. Is doing well denies any fever or chills or pain is under control and the decub ulcer. Patient had debridement by Dr. Knight yesterdaywe plan to place a wound VAC. Patient started on meropenem every 8 hours.CBC ordered. Vitals are stablewith a temp of 97.8 pulse 80. Denae ent doesn't want to go to a rehab with possible central home with homecare Plan to discharge ROS Constitutional: Reports fatigue, Reports lethargy, Reports malaise, Reports poor appetite, Reports weakness, Denies anorexia, Denies chills, Denies fever Eyes: denies blurred vision, denies pain Ears, nose, mouth and throat: Denies dysphagia, Denies headache, Denies nasal congestion, Denies nasal discharge, Denies sore throat, Denies vertigo Cardiovascular: Denies chest pain, Denies decreased exercise tolerance, Denies dyspnea on exertion, Denies lightheadedness, Denies shortness of breath, Denies syncope Respiratory: Denies cough, Denies cough with sputum, Denies dyspnea, Denies excessive sputum, Denies hemoptysis, Denies home oxygen, Denies respiratory infections, Denies wheezing Gastrointestinal: Denies abdominal pain, Denies diarrhea, Denies nausea, Denies vomiting Genitourinary: Denies dysuria, Denies hematuria, Denies urgency, Denies urinary frequency Musculoskeletal: Reports gait dysfunction, Reports muscle weakness, Denies frequent falls, Denies myalgias Integumentary: Reports color changes, Reports darkening of skin, Reports wounds, Denies pruritus, Denies rash pressure ulcers present on the right buttock and bilateral lower extremity Neurological: Denies change in mentation, Denies change in speech, Denies numbness, Denies vertigo, Denies weakness Psychiatric: Denies anxiety, Denies depression Endocrine: Denies fatigue, Denies weight change Objective - Vital Signs Vital signs: Vital Signs Temp 97.8 F 07/12/19 11:29 Pulse 80 07/12/19 11:29 Resp 15 07/12/19 11:29 BP 120/74 07/12/19 11:29 Pulse Ox 94 L 07/12/19 11:29 Intake & Output 07/11/19 07/12/19 07/12/19 18:59 06:59 18:59 Intake Total 1100 Balance 1100 Weight 106 kg Intake: Intake, IV Titration 500 Amount Meropenem 2 gm In Sodium 100 Chloride 0.9% 100 ml @ 200 mls/hr IVPB Q8HR HANY Rx#:[id number] Sodium Chloride 0.9% 1, 400 000 ml @ 50 mls/hr IV . Q20H HANY Rx#:[id number] Oral 600 Other: Voiding Method Bedpan Bedpan Bedside Commode # Voids 1 - Exam Gen: This is an obese 69-year-old female.patient is resting in bed and appears to be comfortable and in no acute distress. HEENT: Head is atraumatic, normocephalic. Pupils equal, round. Sclerae is anicteric. oral mucous membranes moist. NECK: Supple. No JVD. No lymphadenopathy. No thyromegaly. LUNGS: Clear to auscultation. No wheezes or rhonchi. No intercostal retractions. HEART: Regular rate and rhythm. No murmur. ABDOMEN: Soft. Obese. Bowel sounds are present. No masses. No tenderness. EXTREMITIES: dressings to the lower extremities not removed. There is a large open wound on right buttocks with necrotic tissue and mild surrounding erythema. minimal active drainage. Patient also has 2 small wound distally. She also has multiple smaller wounds to bilateral lower legs. Please see nursing documen tation for detail. Significant nodular deformities bilateral hands secondary to rheumatoid arthritis.deformities involving the hands noted NEUROLOGICAL: Patient is awake, alert and oriented x3. Cranial nerves 2 through 12 are grossly intact - Labs CBC & Chem 7: 07/10/19 16:45 07/10/19 16:45 Labs: Microbiology - Last 24 Hours (Table) 07/10/19 16:28 Gram Stain - Preliminary Buttock Wound Culture - Preliminary Gram Neg Bacilli Gram Neg Bacilli#2 Assessment and Plan Plan: 1. Stage IV decubitus ulcer right buttocks. Consult with Dr. Joya. on meropenem status post surgical debridement with Dr. Doss on 07/11 Previous wound culture positive for Proteus, enterococcus, Streptococcus, Pseudomonas. She also has history of MRSA. Wound consult for local wound care . Bone scan will be ordered to rule out osteomyelitis. Patient was placed on prednisone [address] Medina approximate 6 weeks ago. This will be decreased to 15 mg daily with plan to taper and discontinue. 2. Chronic lower extremity ulcers secondary to peripheral vascular disease. W ound care has been ordered by wound care team. Dr. Joya on consult. Patient normally follows with Dr. Medina in the wound healing Center. 3. Rheumatoid arthritis with chronic pain. Arava on hold. Continue fentanyl patch 37 g per hour every 72 hours, Center 10 one every 6 hours, Lyrica 100 mg twice daily. 4. History of DVT. Xarelto placed on hold for anticipated wound debridement. 5. Hypothyroidism. Continue levothyroxine 200 g daily. 6. Chronic kidney disease stage II, stable. 7. Anemia of chronic disease. Continue ferrous sulfate 325 mg twice daily. 8. DVT prophylaxis. Xarelto. 9. GI prophylaxis. Pepcid. Discharge plan: home with wound vac
--- NOTE | 2019-07-12 16:35 | P.PN ---
<Nia Mcknight - Last Filed: 07/12/19 16:31> Subjective Progress Note Date: 07/12/19 CHIEF COMPLAINT: right hip ulcer HISTORY OF PRESENT ILLNESS: 69-year-old female who is status post debridement of right buttock decubitus ulcer. Patient examined at the bedside. Dressing was just changed by nursing prior to my examination. Patient reports her pain to the area is tolerable. PHYSICAL EXAM: VITAL SIGNS: Reviewed. GENERAL: Well-developed in no acute distress. HEENT: No sclera icterus. Extraocular movements grossly intact. Moist buccal mucosa. Head is atraumatic, normocephalic. ABDOMEN: Soft. Nondistended. Nontender. NEUROLOGIC: Alert and oriented. Cranial nerves II through XII grossly intact. SKIN: Dressing to debridement site clean and intact. ASSESSMENT: 1. Right buttock decubitus ulcer, status post excisional debridement PLAN: Continue local wound care. Plans are underway for wound vac per medicine. No further surgical intervention recommended Nurse practitioner note has been reviewed by physician. Signing provider agrees with the documented findings, assessment, and plan of care. Objective - Vital Signs Vital signs: Vital Signs Temp 97.8 F 07/12/19 11:29 Pulse 80 07/12/19 11:29 Resp 15 07/12/19 11:29 BP 120/74 07/12/19 11:29 Pulse Ox 94 L 07/12/19 11:29 Intake & Output 07/11/19 07/12/19 07/12/19 18:59 06:59 18:59 Intake Total 1100 500 Balance 1100 500 Weight 106 kg Intake: Intake, IV Titration 500 500 Amount Meropenem 2 gm In Sodium 100 100 Chloride 0.9% 100 ml @ 200 mls/hr IVPB Q8HR HANY Rx#:[id number] Sodium Chloride 0.9% 1, 400 400 000 ml @ 50 mls/hr IV . Q20H [facility]ANY Rx#:[id number] Oral 600 Other: Voiding Method Bedpan Bedpan Bedside Commode # Voids 1 - Labs CBC & Chem 7: 07/10/19 16:45 07/10/19 16:45 Labs: Microbiology - Last 24 Hours (Table) 07/10/19 16:28 Gram Stain - Preliminary Buttock Wound Culture - Preliminary Gram Neg Bacilli Gram Neg Bacilli#2 <Meño Doss - Last Filed: 07/12/19 19:06> Subjective As above. Mild discomfort. Agree with plans for a wound VAC. We'll sign off at this point. Please call if needed. Objective - Vital Signs Vital signs: Vital Signs Temp 97.8 F 07/12/19 11:29 Pulse 80 07/12/19 11:29 Resp 15 07/12/19 11:29 BP 120/74 07/12/19 11:29 Pulse Ox 94 L 07/12/19 11:29 Intake & Output 07/12/19 07/12/19 07/13/19 06:59 18:59 06:59 Intake Total 1100 500 Balance 1100 500 Intake: Intake, IV Titration 500 500 Amount Meropenem 2 gm In Sodium 100 100 Chloride 0.9% 100 ml @ 200 mls/hr IVPB Q8HR HANY Rx#:[id number] Sodium Chloride 0.9% 1, 400 400 000 ml @ 50 mls/hr IV . Q20H HANY Rx#:[id number] Oral 600 Other: Voiding Method Bedpan Bedside Commode # Voids 1 - Labs CBC & Chem 7: 07/12/19 16:34 07/12/19 16:34 Labs: Abnormal Lab Results - Last 24 Hours (Table) 07/12/19 07/12/19 Range/Units 16:34 16:34 WBC 13.2 H (3.8-10.6) k/uL RBC 3.73 L (3.80-5.40) m/uL Hgb 9.6 L (11.4-16.0) gm/dL Hct 33.2 L (34.0-46.0) % MCHC 28.8 L (31.0-37.0) g/dL RDW 18.3 H (11.5-15.5) % Plt Count 512 H (150-450) k/uL Neutrophils # 12.0 H (1.3-7.7) k/uL Lymphocytes # 0.6 L (1.0-4.8) k/uL Sodium 136 L (137-145) mmol/L Carbon Dioxide 31 H (22-30) mmol/L BUN 30 H (7-17) mg/dL Glucose 130 H (74-99) mg/dL Total Protein 5.4 L (6.3-8.2) g/dL Albumin 2.7 L (3.5-5.0) g/dL Microbiology - Last 24 Hours (Table) 07/10/19 16:28 Gram Stain - Preliminary Buttock Wound Culture - Preliminary Gram Neg Bacilli Gram Neg Bacilli#2 Assessment and Plan (1) Stage 4 pressure ulcer Current Visit: Yes Status: Acute Code(s): L89.94 - PRESSURE ULCER OF UNSPECIFIED SITE, STAGE 4 SNOMED Code(s): 537160750
[2019-07-12 17:00] LABS: Anisocytosis Slight; Basophils # (A) 0.1 k/uL (0-0.2); Basophils % (A) 0 %; Eosinophils % (A) 0 %; HCT 33.2 % (34.0-46.0); HGB 9.6 gm/dL (11.4-16.0); Hypochromasia Marked; Lymphocytes # (A) 0.6 k/uL (1.0-4.8); Lymphocytes % (A) 4 %; MCH 25.6 pg (25.0-35.0); MCHC 28.8 g/dL (31.0-37.0); Mean Platelet Volume 7.8; Monocytes # (A) 0.4 k/uL (0-1.0); Monocytes % (A) 3 %; Neutrophils % (A) 91 %; Platelet Count 512 k/uL (150-450); RBC 3.73 m/uL (3.80-5.40); RDW 18.3 % (11.5-15.5); WBC 13.2 k/uL (3.8-10.6)
[2019-07-12 17:19] LABS: Albumin 2.7 g/dL (3.5-5.0); Calcium 9.8 mg/dL (8.4-10.2); Potassium 4.8 mmol/L (3.5-5.1); Total Bilirubin 0.4 mg/dL (0.2-1.3); Total Protein 5.4 g/dL (6.3-8.2)
[2019-07-12] MEDS: SODIUM CHLORIDE 0.9% 1,000 ML IV SCH (17:31)
[2019-07-13] MEDS: MEROPENEM 2 GM in SODIUM CHLORIDE 0.9% 100 ML IVPB SCH ×2 (00:25→09:30)
[2019-07-13] MEDS: LEVOTHYROXINE 100 MCG TAB PO SCH (06:13)
[2019-07-13] MEDS: SODIUM CHLORIDE 0.9% 1,000 ML IV SCH (06:14)
[2019-07-13 08:57] LABS: Anisocytosis Slight; Basophils # (A) 0.2 k/uL (0-0.2); Basophils % (A) 2 %; Eosinophils # (A) 0.3 k/uL (0-0.7); Eosinophils % (A) 3 %; HCT 36.7 % (34.0-46.0); HGB 11.5 gm/dL (11.4-16.0); Hypochromasia Moderate; Lymphocytes % (A) 16 %; MCH 27.3 pg (25.0-35.0); MCHC 31.5 g/dL (31.0-37.0); MCV 86.8 fL (80.0-100.0); Mean Platelet Volume 8.8; Monocytes # (A) 0.8 k/uL (0-1.0); Monocytes % (A) 7 %; Neutrophils % (A) 71 %; Platelet Count 590 k/uL (150-450); RBC 4.22 m/uL (3.80-5.40); RDW 18.3 % (11.5-15.5); WBC 12.6 k/uL (3.8-10.6)
[2019-07-13 09:08] LABS: ALT 17 U/L (4-34); AST 24 U/L (14-36); African American GFR (CKD) >90 (>60 ml/min/1.73 sqM); Albumin 3.2 g/dL (3.5-5.0); Alkaline Phosphatase 107 U/L (38-126); Anion Gap 5 mmol/L; Blood Urea Nitrogen 30 mg/dL (7-17); Calcium 10.3 mg/dL (8.4-10.2); Carbon Dioxide 31 mmol/L (22-30); Chloride 102 mmol/L (98-107); Glucose 69 mg/dL (74-99); Non-African American GFR(CKD) 81 (>60 ml/min/1.73 sqM); Potassium 4.8 mmol/L (3.5-5.1); Sodium 138 mmol/L (137-145); Total Bilirubin 0.5 mg/dL (0.2-1.3); Total Protein 6.3 g/dL (6.3-8.2)
[2019-07-13] MEDS: COLLAGENASE 250 UNIT/GM OINTMENT 30 GM TUBE TOPICAL SCH (09:30)
[2019-07-13] MEDS: ASCORBIC ACID 500 MG TAB PO SCH (09:30)
[2019-07-13] MEDS: MULTIVITAMINS, THERA 1 EACH TAB PO SCH (09:31)
[2019-07-13] MEDS: PREGABALIN 100 MG CAP PO SCH ×2 (09:31→22:31)
[2019-07-13] MEDS: FERROUS SULFATE 325 MG TAB PO SCH ×2 (09:31→22:31)
[2019-07-13] MEDS: predniSONE 5 MG TAB PO SCH (09:31)
[2019-07-13] MEDS: HYDROcodone/APAP 10-325MG 1 EACH TAB PO PRN ×2 (09:31→22:31)
[2019-07-13] MEDS: CYANOCOBALAMIN 500 MCG TAB PO SCH (09:31)
[2019-07-13 10:58] LABS: RBC Fragments Present
[2019-07-13 10:59] LABS: Poikilocytosis (M) Present
--- OUTSIDE RECORDS SUMMARY | 2019-07-13 13:25 | XMS REPORT | Referral Summary ---
:1950 Author Name [facility] Address [address] [place] [address] Care Team Providers Name Role Phone Adam Unavailable Unavailable Erb Unavailable Unavailable Justina Unavailable Unavailable Garcia Unavailable Unavailable West Unavailable Unavailable Allergies, Adverse Reactions and Alerts Substance Reaction Reaction Severity Status Penicillins Rash/Hives Unspecified Active Medications Medication Directions Start Date Status fentanyl 12 mcg/hr transdermal 1 patch 72 hour transdermal Unspe cified active patch fentanyl 25 mcg/hr transdermal 1 patch 72 hour transdermal Unspe cified active patch Lyrica 100 mg capsule 1 capsule oral BID Unspecified active leflunomide 20 mg tablet 1 tablet oral Daily Unspecified act gela Xarelto 20 mg tablet 1 tablet oral Daily Unspecified active ferrous sulfate 325 mg (65 mg 1 tablet oral Daily Unspecified active iron) tablet Theragran-M Premier 50 Plus 400 1 tablet oral Daily Unspecified active mcg-250 mcg-375 mcg tablet hydrocodone 10 mg-acetaminophen 1 tablet oral TID PRN pain Unspe cified active 325 mg tablet Protonix 20 mg tablet,delayed tablet,delayed release (DR/EC) Uns pecified active release oral daily levothyroxine 200 mcg tablet 1 tablet oral Daily Unspecified active cyanocobalamin (vit B-12) 1,000 1 tablet oral Daily Unspecified active mcg tablet ascorbic acid (vitamin C) 500 mg 1 tablet oral Daily Unspecified active tablet Keflex 500 mg capsule 1 capsule oral TID 05/25/2019 active lidocaine 5 % topical cream cream topical Unspecified acti ve Bactrim 400 mg-80 mg tablet 1 tablet oral bid 05/04/2019 ac tive prednisone 20 mg tablet tablet oral daily 05/04/2019 active cefdinir 300 mg capsule 1 capsule oral BID 05/11/2019 activ e prednisone 20 mg tablet 1 tablet oral daily 06/16/2019 act gela cefuroxime axetil 500 mg tablet 1 tablet oral BID Unspecified aborted Problems Problem Onset Date Status L88 - Pyoderma gangrenosum 05/18/2019 active I87.2 - Venous insufficiency (chronic) (peripheral) 05/12/20 18 active I87.331 - Chronic venous hypertension (idiopathic) with ulce r and 11/24/2018 active inflammation of right lower extremity I87.332 - Chronic venous hypertension (idiopathic) with ulce r and 11/24/2018 active inflammation of left lower extremity Encounters Date Location 08/26/2017 12:00:00 [facility] Encounter Diagnosis: L88 - Pyoderma gangrenosum Encounter Diagnosis: I87.2 - Venous insufficiency (chronic) (peripheral) Encounter Diagnosis: I87.331 - Chronic venous hypertension (idiopathic) with ulcer and inflammation of right lower extremity Encounter Diagnosis: I87.332 - Chronic venous hypertension (idiopathic) with ulcer and inflammation of left lower extremity Vital signs Vital Value Unit Height 68 [in_i] Weight Measured 220 [lb_av] BP Systolic 125 mm[Hg] BP Diastolic 56 mm[Hg] BMI (Body Mass Index) 33.4 Unspecified Weight Measured 100 kg Body Temperature 98.2 [degF] Body Temperature 36.78 Melia O2 % BldC Oximetry Unspecified Unspecified Heart Rate 98 /min Respiratory Rate 18 /min Inhaled O2 concentration Unspecified Unspecified Immunizations Name Date Status Immunization information has not been included or does not e xist. Procedures Procedure Date Status Procedure information has not been included or does not exis t. Social History Smoking Status: Never smoker Goals Description Goal: Patient will not experience any in jury related to falls Goal: Patient/caregiver will demonstrate safe use of adaptive devices to increase mobility Goal: Patient/caregiver will verbalize/d emonstrate measure taken to improve self care Goal: Patient/caregiver will verbalize/d emonstrate measures taken to improve the patient's personal safety Goal: Patient/caregiver agrees to and ve rbalizes understanding of need to use nutritional supplements and/or vitamins as prescribed Goal: Patient will have a decrease in wo und volume by X% from date: (specify in notes) Health Concerns Description Problem: Abuse / Safety / Falls / Self C are Management Problem: Nutrition Problem: Wound/Skin Impairment Functional Status Description Date Ambulatory Status - Wheel Chair (Active) 06/29/2019 Highest Pressure Ucler Stage - 4 (Active) 06/17/2015 Assessment and Plan Description Laboratory: C Reactive Protein in serum or plasma. Laboratory: CBC (hemogram). Laboratory: Sed rate-method unspecifie d. Cardiovascular: Bilateral Venous Reflux Study. Notes: evaluate bilateral legs for venous insufficiency severity. Laboratory: Tiss Path Bx report. Notes: evaluate tissue taken x2. Services and Therapies: Ankle Brachial I ndex (PAULETTE). Notes: evaluate B/L legs for arterial insuff. Laboratory: CBC W Auto Differential pane l. Laboratory: Comprehensive metabolic pane l=CMS. Laboratory: Sed rate-method unspecifie d. Laboratory: C Reactive Protein (CRP). Laboratory: Complete Blood Count w/ diff erential (CBC w/diff). Laboratory: Complete Metabolic Panel (CM P). Laboratory: Erythrocyte Sedimentation Ra te (ESR). Laboratory: Pre-albumin. Laboratory: Culture-Aerobic & Anaerobic. Radiology: X-ray, foot. Laboratory: C Reactive Protein (CRP). Laboratory: Complete Blood Count w/ diff erential (CBC w/diff). Laboratory: Complete Metabolic Panel (CM P). Laboratory: Erythrocyte Sedimentation Ra te (ESR). Laboratory: Pre-albumin. Other: [id number] [facility]. 03/14/2019. Plan of Treatment: Patient referred to [facility] care Plan of Treatment: Education provided on Basic Hygiene Plan of Treatment: Nutrition-profile lab s obtained as ordered Plan of Treatment: Patient referred to [facility] care Assessment: Chyna is a pleasant 67-yea r-old white female debilitated by rheumatoid arthritis. She reports a bunion on her left medial foot and become open for the past 1 month. She denies any trauma to the a rodrigo. She indicates her right #3 toe dorsum looked "dirty" she scrubbed it clean and a wound developed. She has been here multiple times for multiple wounds in past.She is a patient of Dr Moyer.She is in complex careshe is now here for further evaluation this01/05/2019: Pt had fallen last week worsening her left leg wound 019: Patient last week 18 Dr. Martin. They're planning on venous reflux surger y soon.02/02/2019: She is scheduled for surgery : She returns . She is status post ablation. Her wounds are much worse. She reports taking a lo t of Aleve and having a hospital admission for GI bleeding. She was just released yesterday. continues to be noncompliant with compression.03/09/2019: patient somewhat tolerated Setopress, but went to SUKHJINDER Wraps after they loosened. Pt PAULETTE reordered fo r possible 2-3 layer wraps soon. Compression was reinforced as a treatment for her wo unds.03/23/2019: Patient tolerated the Sukhjinder wraps better. She did tighten them in t he morning when they were loose. Patient has had the venous study completed results a re not available. Pathology shows no malignancy2018: Patient tolerating Tubigrip, 2 layer for compression. PAULETTE and venous Doppler reviewed today. Showing venous insufficiency, but no obstructing arterial plaques.04/20/2019: Patient's w ounds are not improved, but is somewhat worsened with standard debridement and w ound treatment.05/04/2019: Wound slightly improved with Santyl and holding debride ment. Suspicions for pyoderma gangrenosum and bacterial overgrowth prompted wound cultures today. I discussed prednisone and antibiotics.05/11/2019: Wounds minimally improved today. She remains on Bactrim and prednisone. She is wearing the compress ion little bit more readily. wound cultures were reviewed today. She'll remain on B actrim, however add cefdinir.05/18/2019: Wounds continued to improve slowly. She remains on prednisone,Bactrim and Omnicef. She continues to wearTubigrip for compre ssion.May 25 2019: Patient was once again offered hyperbaric oxygen chamber, which we have on numerous occasions, she once again refused. .patient needs refil l on antibiotics.06/08/2019: Patient remains on prednisone and is finishing antibioti cs.06/15/2019:patient prescription for prednisone will be renewed. Her wounds are very very slowly improving. She will finish antibiotics.06/29/2019:pateint con tinues to SLOWLY improve with Santyl and PO Prednisone. Results Name Specimen Value Unit Ref. Range Date Result information has not been included or does not exist. Medical Equipment Implanted Area BONNIE Assigning Author ervin Medical Equipment information has not been included or does not exist. Reason for Referral transition of care
[2019-07-13] MEDS: CEFDINIR 300 MG CAP PO SCH ×2 (14:27→22:31)
--- NOTE | 2019-07-13 17:22 | P.PN ---
Subjective Progress Note Date: 07/13/19 This is a 69-year-old female patient with past medical history of rheumatoid arthritis, hypothyroidism, DVT, fibromyalgia, multiple decubitus ulcer, MRSA infection, previous admission for GI bleed secondary to antral ulcer, gastritis and duodenitis requiring blood transfusion, hypothyroidism, ch ronic kidney disease stage II. Patient complains of large wound on her right posterior thigh. She [facility] under the care of Dr. Medina. Patient states that she developed a new wound possible skin tear on her right buttocks that was not there on her last Wound Center evaluation. She states this became significantly worse very quickly and her home care nurse recommended she go to the emergency center. Patient has been more fatigued in the last couple of days. She denies any significant pain to the back of her leg. No fever, no chills, no nausea or vomiting. She has been in was last seen in the wound healing center on June [address] Medina and notes indicate that her chronic wounds are slowly improving with Santyl and oral prednisone. Patient states that she was placed on prednisone by Dr. Medina approximate 6 weeks ago. She also completed a recent course of antibiotics.he states she is not on the prednisone for rheumatoid arthritis. Patient has been on Arava for rheumatoid arthritis. Patient lives in her own senior apartment. She is able to pivot to get from bed to a chair. Her daughter assists her with showering and she also has [facility] home care in place performing dressing changes during the week and her daughter does dressing changes on the weekend. patient does have history of decubitus ulcer to the right buttocks for which she underwent long-term treatment including wound VAC and flap surgery. Patient presented to [facility] emergency center and patient was found to have a large wound on the right buttocks and multiple wounds on the bilateral lower extremities, right and left pretibial areas, lateral as well and posterior right thigh. She was afebrile, vital signs stable, WBC 12.7, hemoglobin 8.7, platelet count 468, blood sugar 185, BUN 28 creatinine 0.77. Electrolytes and liver function tests within normal limits, lactic acid 1.9, C- reactive protein 59.3, sed rate 44. Urinalysis clear, leukoesterase large, RBCs 44, bacteria rare blood moderate. Patient was given a dose of ceftriaxone and admitted to the [facility] floor. Patient has been seen by wound care team and local wound care addressed. Consult has been added for Dr. Doss for debridement and bone scan ordered to rule out osteomyelitis. Patient's discharge plan is to [facility] for subacute rehab. 07/12 and patient examined at bedside. Is doing well denies any fever or chills or pain is under control and the decub ulcer. Patient had debridement by Dr. Knight yesterdaywe plan to place a wound VAC. Patient started on meropenem every 8 hours.CBC ordered. Vitals are stablewith a temp of 97.8 pulse 80. Denae ent doesn't want to go to a rehab with possible central home with homecare Plan to discharge 07/13patient examined at bedside. Denies any fever or chills. Antibiotic was switched to Omnicef 300 twice a day with plan to discharge her wound VAC tomorrow. Prednisone decreased to 10 milligrams daily with plan to gradually taper until patient's blood pressure is stable. ROS Constitutional: Reports fatigue, Reports lethargy, Reports malaise, Reports poor appetite, Reports weakness, Denies anorexia, Denies chills, Denies fever Eyes: denies blurred vision, denies pain Ears, nose, mouth and throat: Denies dysphagia, Denies headache, Denies nasal congestion, Denies nasal discharge, Denies sore throat, Denies vertigo Cardiovascular: Denies chest pain, Denies decreased exercise tolerance, Denies dyspnea on exertion, Denies lightheadedness, Denies shortness of breath, Denies syncope Respiratory: Denies cough, Denies cough with sputum, Denies dyspnea, Denies excessive sputum, Denies hemoptysis, Denies home oxygen, Denies respiratory infections, Denies wheezing Gastrointestinal: Denies abdominal pain, Denies diarrhea, Denies nausea, Denies vomiting Genitourinary: Denies dysuria, Denies hematuria, Denies urgency, Denies urinary frequency Musculoskeletal: Reports gait dysfunction, Reports muscle weakness, Denies frequent falls, Denies myalgias Integumentary: Reports color changes, Reports darkening of skin, Reports wounds, Denies pruritus, Denies rash pressure ulcers present on the right buttock and bilateral lower extremity Neurological: Denies change in mentation, Denies change in speech, Denies numbness, Denies vertigo, Denies weakness Psychiatric: Denies anxiety, Denies depression Endocrine: Denies fatigue, Denies weight change Objective - Vital Signs Vital signs: Vital Signs Temp 97.9 F 07/13/19 12:11 Pulse 105 H 07/13/19 12:11 Resp 16 07/13/19 12:11 BP 147/90 07/13/19 12:11 Pulse Ox 96 07/13/19 12:11 Intake & Output 07/12/19 07/13/19 07/13/19 18:59 06:59 18:59 Intake Total 500 500 Balance 500 500 Intake: Intake, IV Titration 500 500 Amount Meropenem 2 gm In Sodium 100 100 Chloride 0.9% 100 ml @ 200 mls/hr IVPB Q8HR HANY Rx#:[id number] Sodium Chloride 0.9% 1, 400 400 000 ml @ 50 mls/hr IV . Q20H HANY Rx#:[id number] Other: Voiding Method Bedside Commode Bedside Commode Bedside Commode Bedpan # Voids 5 - Exam Gen: This is an obese 69-year-old female.patient is resting in bed and appears to be comfortable and in no acute distress. HEENT: Head is atraumatic, normocephalic. Pupils equal, round. Sclerae is anicteric. oral mucous membranes moist. NECK: Supple. No JVD. No lymphadenopathy. No thyromegaly. LUNGS: Clear to auscultation. No wheezes or rhonchi. No intercostal retractions. HEART: Regular rate and rhythm. No murmur. ABDOMEN: Soft. Obese. Bowel sounds are present. No masses. No tenderness. EXTREMITIES: dressings to the lower extremities not removed. There is a large open wound round 7 x5 cm on right buttocks with necrotic tissue and mild surrounding erythema. minimal active drainage. Patient also has 2 small wound distally. She also has multiple smaller wounds to bilateral lower legs. Please see nursing documentation for detail. Significant nodular deformities bilateral hands secondary to rheumatoid arthritis.deformities involving the hands noted NEUROLOGICAL: Patient is awake, alert and oriented x3. Cranial nerves 2 through 12 are grossly intact - Labs CBC & Chem 7: 07/13/19 08:04 07/13/19 08:04 Labs: Abnormal Lab Results - Last 24 Hours (Table) 07/12/19 07/13/19 07/13/19 Range/Units 16:34 08:04 08:04 WBC 12.6 H (3.8-10.6) k/uL RDW 18.3 H (11.5-15.5) % Plt Count 590 H (150-450) k/uL Neutrophils # 9.0 H (1.3-7.7) k/uL Sodium 136 L (137-145) mmol/L Carbon Dioxide 31 H 31 H (22-30) mmol/L BUN 30 H 30 H (7-17) mg/dL Glucose 130 H 69 L (74-99) mg/dL Calcium 10.3 H (8.4-10.2) mg/dL Total Protein 5.4 L (6.3-8.2) g/dL Albumin 2.7 L 3.2 L (3.5-5.0) g/dL Microbiology - Last 24 Hours (Table) 07/10/19 16:28 Gram Stain - Preliminary Buttock Wound Culture - Preliminary Escherichia coli Proteus mirabilis Assessment and Plan Plan: 1. Stage IV decubitus ulcer right buttocks: 7 x [address] Joya. MEROPENEM DISCONTINUED PATIENT SWITCHED TO ONLY SELF 300 TWICE A DAY status post surgical debridement with Dr. Doss on 07/11 Previous wound culture positive for Proteus, enterococcus, Streptococcus, Pseudomonas. She also has history of MRSA. Wound consult for local wound care . Bone scan will be ordered to rule out osteomyelitis. Patient was placed on prednisone [address] Ruddy poe approximate 6 weeks ago. This will be decreased to 10 mg daily with plan to taper and discontinue. 2. Chronic lower extremity ulcers secondary to peripheral vascular disease. Wound care has been ordered by wound care team. Dr. Joya on consult. Patient normally follows with Dr. Medina in the wound healing Center. 3. Rheumatoid arthritis with chronic pain. Arava on hold. Continue fentanyl patch 37 g per hour every 72 hours, Remer 10 one every 6 hours, Lyrica 100 mg twice daily. 4. History of DVT. Xarelto placed on hold for anticipated wound debridement. 5. Hypothyroidism. Continue levothyroxine 200 g daily. 6. Chronic kidney disease stage II, stable. 7. Anemia of chronic disease. Continue ferrous sulfate 325 mg twice daily. 8. DVT prophylaxis. Xarelto. 9. GI prophylaxis. Pepcid. Discharge plan: home with wound vac
--- NOTE | 2019-07-13 22:46 | P.PN ---
Subjective Progress Note Date: 07/13/19 his is a 69-year-old female patient with past medical history of rheumatoid arthritis, hypothyroidism, DVT, fibromyalgia, multiple decubitus ulcer, MRSA infection, previous admission for GI bleed secondary to antral ulcer, gastritis and duodenitis requiring blood transfusion, hypothyroidism, chr onic kidney disease stage II. Patient complains of large wound on her right posterior thigh. [facility] under the care of Dr. Medina. Patient states that she developed a new wound possible skin tear on her right buttocks that was not there on her last Wound Center evaluation. She states this became significantly worse very quickly and her home care nurse recommended she go to the emergency center. Patient has been more fatigued in the last couple of days. She denies any significant pain to the back of her leg. No fever, no chills, no nausea or vomiting. She has been in was last seen in the wound healing center on June [address] Medina and notes indicate that her chronic wounds are slowly improving with Santyl and oral prednisone. Patient states that she was placed on prednisone by Dr. Medina approximate 6 weeks ago. She also completed a recent course of antibiotics.he states she is not on the prednisone for rheumatoid arthritis. Patient has been on Arava for rheumatoid arthritis. Patient lives in her own senior apartment. She is able to pivot to get from bed to a chair. Her daughter assists her with showering and she also has [facility] home care in place performing dressing changes during the week and her daughter does dressing changes on the weekend. patient does have history of decubitus ulcer to the right buttocks for which she underwent long-term treatment including wound VAC and flap surgery. Patient presented to [facility] emergency center and patient was found to have a large wound on the right buttocks and multiple wounds on the bilateral lower extremities, right and left pretibial areas, lateral as well and posterior right thigh. She was afebrile, vital signs stable, WBC 12.7, h emoglobin 8.7, platelet count 468, blood sugar 185, BUN 28 creatinine 0.77. Electrolytes and liver function tests within normal limits, lactic acid 1.9, C- reactive protein 59.3, sed rate 44. Urinalysis clear, leukoesterase large, RBCs 44, bacteria rare blood moderate. Patient was given a dose of ceftriaxone and admitted to the [facility] floor. Patient has been seen by wound care team and local wound care addressed. Consult has been added for Dr. Doss for debridement and bone scan ordered to rule out osteomyelitis. Patient's discharge plan is to [facility] for subacute rehab. 07/13/2019 the patient has had a surgical debridement of the large pressure ulceration to the right buttocks and is doing well postoperative. Plans are in place for her to transfer to the rehab facility to receive her course of antibiotic therapy. Also asked for negative pressure therapy. patient now plans on going to her home. Orders are signed for home care and for the wound VAC to be utilize at home. Objective - Vital Signs Vital signs: Vital Signs Temp 97.9 F 07/13/19 12:11 Pulse 105 H 07/13/19 12:11 Resp 16 07/13/19 12:11 BP 147/90 07/13/19 12:11 Pulse Ox 96 07/13/19 12:11 Intake & Output 07/13/19 07/13/19 07/14/19 06:59 18:59 06:59 Intake Total 500 Balance 500 Intake: Intake, IV Titration 500 Amount Meropenem 2 gm In Sodium 100 Chloride 0.9% 100 ml @ 200 mls/hr IVPB Q8HR [facility] Rx#:[id number] Sodium Chloride 0.9% 1, 400 000 ml @ 50 mls/hr IV . Q20H [facility] Rx#:[id number] Other: Voiding Method Bedside Commode Bedside Commode Bedpan # Voids 5 - Exam Gen: This is an obese 69-year-old female.patient is resting in bed and appears to be comfortable and in no acute distress. HEENT: Head is atraumatic, normocephalic. Pupils equal, round. Sclerae is anicteric. oral mucous membranes moist. NECK: Supple. No JVD. No lymphadenopathy. No thyromegaly. LUNGS: Clear to auscultation. No wheezes or rhonchi. No intercostal retractions. HEART: Regular rate and rhythm. No murmur. ABDOMEN: Soft. Obese. Bowel sounds are present. No masses. No tenderness. EXTREMITIES: dressings to the lower extremities not removed. the surgical dressing to the right buttocks upper thigh area is non-saturated in the site is not very tender. There's been excellent debridement of the necrotic material. Significant nodular deformities bilateral hands secondary to rheumatoid arthriti s. NEUROLOGICAL: Patient is awake, alert and oriented x3. - Labs CBC & Chem 7: 07/13/19 08:04 07/13/19 08:04 Labs: Abnormal Lab Results - Last 24 Hours (Table) 07/13/19 07/13/19 Range/Units 08:04 08:04 WBC 12.6 H (3.8-10.6) k/uL RDW 18.3 H (11.5-15.5) % Plt Count 590 H (150-450) k/uL Neutrophils # 9.0 H (1.3-7.7) k/uL Carbon Dioxide 31 H (22-30) mmol/L BUN 30 H (7-17) mg/dL Glucose 69 L (74-99) mg/dL Calcium 10.3 H (8.4-10.2) mg/dL Albumin 3.2 L (3.5-5.0) g/dL Microbiology - Last 24 Hours (Table) 07/10/19 16:28 Gram Stain - Final Buttock Wound Culture - Final Escherichia coli Proteus mirabilis Enterococcus faecalis Laboratory Results WBC 12.6 k/uL (3.8-10.6) H 07/13/19 08:04 RBC 4.22 m/uL (3.80-5.40) 07/13/19 08:04 Hgb 11.5 gm/dL (11.4-16.0) 07/13/19 08:04 Hct 36.7 % (34.0-46.0) 07/13/19 08:04 MCV 86.8 fL (80.0-100.0) 07/13/19 08:04 MCH 27.3 pg (25.0-35.0) 07/13/19 08:04 MCHC 31.5 g/dL (31.0-37.0) 07/13/19 08:04 RDW 18.3 % (11.5-15.5) H 07/13/19 08:04 Plt Count 590 k/uL (150-450) H 07/13/19 08:04 Neutrophils % 71 % 07/13/19 08:04 Lymphocytes % 16 % 07/13/19 08:04 Monocytes % 7 % 07/13/19 08:04 Eosinophils % 3 % 07/13/19 08:04 Basophils % 2 % 07/13/19 08:04 Neutrophils # 9.0 k/uL (1.3-7.7) H 07/13/19 08:04 Lymphocytes # 2.0 k/uL (1.0-4.8) 07/13/19 08:04 Monocytes # 0.8 k/uL (0-1.0) 07/13/19 08:04 Eosinophils # 0.3 k/uL (0-0.7) 07/13/19 08:04 Basophils # 0.2 k/uL (0-0.2) 07/13/19 08:04 Manual Slide Review Performed 07/13/19 08:04 Hypochromasia Moderate 07/13/19 08:04 Poikilocytosis (manual Present 07/13/19 08:04 Anisocytosis Slight 07/13/19 08:04 Fragmented RBCs Present 07/13/19 08:04 ESR 44 mm/hr (0-20) H 07/10/19 16:45 ESR Cancelled 07/10/19 16:45 PT 11.5 sec (9.0-12.0) 07/10/19 16:45 INR 1.1 (<1.2) 07/10/19 16:45 APTT 29.3 sec (22.0-30.0) 07/10/19 16:45 Sodium 138 mmol/L (137-145) 07/13/19 08:04 Potassium 4.8 mmol/L (3.5-5.1) 07/13/19 08:04 Chloride 102 mmol/L (98-107) 07/13/19 08:04 Carbon Dioxide 31 mmol/L (22-30) H 07/13/19 08:04 Anion Gap 5 mmol/L 07/13/19 08:04 BUN 30 mg/dL (7-17) H 07/13/19 08:04 Creatinine 0.75 mg/dL (0.52-1.04) 07/13/19 08:04 Est GFR (CKD-EPI)AfAm >90 (>60 ml/min/1.73 sqM) 07/13/19 08:04 Est GFR (CKD-EPI)NonAf 81 (>60 ml/min/1.73 sqM) 07/13/19 08:04 Glucose 69 mg/dL (74-99) L 07/13/19 08:04 Plasma Lactic Acid Darryl 1.9 mmol/L (0.7-2.0) 07/10/19 16:45 Calcium 10.3 mg/dL (8.4-10.2) H 07/13/19 08:04 Total Bilirubin 0.5 mg/dL (0.2-1.3) 07/13/19 08:04 AST 24 U/L (14-36) 07/13/19 08:04 ALT 17 U/L (4-34) 07/13/19 08:04 Alkaline Phosphatase 107 U/L (38-126) 07/13/19 08:04 C-Reactive Protein 59.3 mg/L (<10.0) H 07/10/19 16:45 Total Protein 6.3 g/dL (6.3-8.2) 07/13/19 08:04 Albumin 3.2 g/dL (3.5-5.0) L 07/13/19 08:04 Urine Color Yellow 07/10/19 19:50 Urine Appearance Clear (Clear) 07/10/19 19:50 Urine pH 5.0 (5.0-8.0) 07/10/19 19:50 Ur Specific [place] 1.020 (1.001-1.035) 07/10/19 19:50 Urine Protein Negative (Negative) 07/10/19 19:50 Urine Glucose (UA) Negative (Negative) 07/10/19 19:50 Urine Ketones Negative (Negative) 07/10/19 19:50 Urine Blood Moderate (Negative) H 07/10/19 19:50 Urine Nitrite Positive (Negative) H 07/10/19 19:50 Urine Bilirubin Negative (Negative) 07/10/19 19:50 Urine Urobilinogen <2.0 mg/dL (<2.0) 07/10/19 19:50 Ur Leukocyte Esterase Large (Negative) H 07/10/19 19:50 Urine RBC 44 /hpf (0-5) H 07/10/19 19:50 Urine WBC 3 /hpf (0-5) 07/10/19 19:50 Ur Squamous Epith Cells 5 /hpf (0-4) H 07/10/19 19:50 Urine Bacteria Rare /hpf (None) H 07/10/19 19:50 Urine Mucus Rare /hpf (None) H 07/10/19 19:50 Microbiology 07/10/19 16:28 Buttock Gram Stain - Final 07/10/19 16:28 Buttock Wound Culture - Final Escherichia coli Proteus mirabilis Enterococcus faecalis Assessment and Plan (1) Stage 4 pressure ulcer Narrative/Plan: Patient presented to [facility] emergency center and patient was found to have a large wound on the right buttocks and multiple wounds on the bilateral lower extremities, right and left pretibial areas, lateral as well and posterior right thigh. She was afebrile, vital signs stable, WBC 12.7, hemoglobin 8.7, platelet count 468, blood sugar 185, BUN 28 creatinine 0.77. Electrolytes and liver function tests within normal limits, lactic acid 1.9, C- reactive protein 59.3, sed rate 44. Urinalysis clear, leukoesterase large, RBCs 44, bacteria rare blood moderate. Patient was given a dose of ceftriaxone and admitted to the [facility] floor. Patient has been seen by wound care team and local wound care addressed. Consult has been added for Dr. Doss for debridement and bone scan ordered to rule out osteomyelitis. Patient's discharge plan is to [facility] for subacute rehab. 07/11/2019 the patient feels very poorly. She has had a minimal fall with what she thought was a minimal abrasion to her right hip but is read up with the very large pressure ulceration with necrosis of underlying tissue. She will be seen by the surgeon and surgical debridement of the site as expected. The chronic inflammation to her lower extremities without acute change is as per who is seen her recently. Of the limb she denies other HEENT difficulties. Does not believe that she's had fever but she had chills. Please see nursing control systems technician for the extensive ulcerations. If the surgeon has seen her if the base is clean and negative pressure therapy will likely be utilized to help with this problem. Wound cultures are obtained and antibiotic therapy is being utilized this point in time with meropenem given her recent cultures that showed evidence of Pseudomonas as well as other pathogens. The wound team has evaluated the limbs and we are continue local wound care. 07/13/2019 Patient is postsurgery and is doing quite well. She will be going to home not to subacute rehab. Orders for negative pressure therapy in the home setting in follow-up in the wound center have been requested. Wound cultures with E. coli andProteus mirabilis, both susceptible to cefuroxime. Consequently this is sent to her home pharmacy. I believe she'll be discharged home tomorrow based on the current data. She will follow in the wound center after discharge. Current Visit: Yes Status: Acute Code(s): L89.94 - PRESSURE ULCER OF UNSPECIFIED SITE, STAGE 4 SNOMED Code(s): 889512013
[2019-07-14] MEDS: SODIUM CHLORIDE 0.9% 1,000 ML IV SCH (06:13)
[2019-07-14] MEDS: LEVOTHYROXINE 100 MCG TAB PO SCH (06:13)
[2019-07-14 06:56] VITALS: RESP 16
[2019-07-14] MEDS: MULTIVITAMINS, THERA 1 EACH TAB PO SCH (08:04)
[2019-07-14] MEDS: CEFDINIR 300 MG CAP PO SCH (08:04)
[2019-07-14] MEDS: PREGABALIN 100 MG CAP PO SCH (08:04)
[2019-07-14] MEDS: ASCORBIC ACID 500 MG TAB PO SCH (08:04)
[2019-07-14] MEDS: HYDROcodone/APAP 10-325MG 1 EACH TAB PO PRN (08:04)
[2019-07-14] MEDS: CYANOCOBALAMIN 500 MCG TAB PO SCH (08:04)
[2019-07-14] MEDS: FERROUS SULFATE 325 MG TAB PO SCH (08:04)
[2019-07-14] MEDS ORDERED: predniSONE 10 MG TAB PO SCH (09:00)
[2019-07-14 10:19] LABS: Albumin 3.4 g/dL (3.5-5.0); Calcium 10.7 mg/dL (8.4-10.2); Potassium 4.6 mmol/L (3.5-5.1); Total Bilirubin 0.4 mg/dL (0.2-1.3); Total Protein 6.7 g/dL (6.3-8.2)
[2019-07-14 10:37] LABS: Anisocytosis Slight; Basophils # (A) 0.1 k/uL (0-0.2); Basophils % (A) 1 %; Eosinophils # (A) 0.6 k/uL (0-0.7); Eosinophils % (A) 5 %; HCT 35.1 % (34.0-46.0); HGB 10.6 gm/dL (11.4-16.0); Hypochromasia Marked; Lymphocytes # (A) 2.1 k/uL (1.0-4.8); Lymphocytes % (A) 19 %; MCH 26.5 pg (25.0-35.0); MCHC 30.1 g/dL (31.0-37.0); MCV 88.2 fL (80.0-100.0); Monocytes # (A) 0.6 k/uL (0-1.0); Monocytes % (A) 5 %; Neutrophils # (A) 7.9 k/uL (1.3-7.7); Neutrophils % (A) 69 %; Platelet Count 517 k/uL (150-450); RBC 3.98 m/uL (3.80-5.40); RDW 17.8 % (11.5-15.5); WBC 11.4 k/uL (3.8-10.6)
[2019-07-14] MEDS: COLLAGENASE 250 UNIT/GM OINTMENT 30 GM TUBE TOPICAL SCH (10:58)
[2019-07-14 11:54] VITALS: BP 136/86; PULSE 108; TEMP 98.1
--- NOTE | 2019-07-14 14:51 | P.DS ---
Providers Date of admission: 07/12/19 10:26 Attending physician: Janes Wilkins MD Consults: 07/10/19 18:04 Consult Physician Stat Consulting Provider: Linden Joya Consult Reason/Comments: stage IV pressure ulcer Do you want consulting provider notified?: Yes 07/11/19 11:24 Consult Physician Routine Consulting Provider: Meño Doss Consult Reason/Comments: debridement right buttocks wound Do you want consulting provider notified?: Yes [facility] [address] [facility]: This is a 69-year-old female patient with past medical history of rheumatoid arthritis, hypothyroidism, DVT, fibromyalgia, multiple decubitus ulcer, MRSA infection, previous admission for GI bleed secondary to antral ulcer, gastritis and duodenitis requiring blood transfusion, hypothyroidism, chronic kidney disease stage II. Patient complains of large wound on her right posterior thigh. She [facility] under the care of Dr. Medina. Patient states that she developed a new wound possible skin tear on her right buttocks that was not there on her last Wound Center evaluation. She states this became significantly worse very quickly and her home care nurse recommended she go to the emergency center. Patient has been more fatigued in the last couple of days. She denies any significant pain to the back of her leg. No fever, no chills, no nausea or vomiting. She has been in was last seen in the wound healing center on June [address] Medina and notes indicate that her chronic wounds are slowly improving with Santyl and oral prednisone. Patient states that she was placed on prednisone by Dr. Medina approximate 6 weeks ago. She also completed a recent course of antibiotics.he states she is not on the prednisone for rheumatoid arthritis. Patient has been on Arava for rheumatoid arthritis. Patient lives in her own senior apartment. She is able to pivot to get from bed to a chair. Her daughter assists her with showering and she also has [facility] care in place performing dressing changes during the week and her daughter does dressing changes on the weekend. patient does have history of decubitus ulcer to the right buttocks for which she underwent long-term treatment including wound VAC and flap surgery. Patient presented to [facility] emergency center and patient was found to have a large wound on the right buttocks and multiple wounds on the bilateral lower extremities, right and left pretibial areas, lateral as well and posterior right thigh. She was afebrile, vital signs stable, WBC 12.7, hemoglobin 8.7, platelet count 468, blood sugar 185, BUN 28 creatinine 0.77. Electrolytes and liver function tests within normal limits, lactic acid 1.9, C- reactive protein 59.3, sed rate 44. Urinalysis clear, leukoesterase large, RBCs 44, bacteria rare blood moderate. Patient was given a dose of ceftriaxone and admitted to the [facility] floor. Patient has been seen by wound care team and local wound care addressed. Consult has been added for Dr. Doss for debridement and bone scan ordered to rule out osteomyelitis. Patient's discharge plan is to [facility] for subacute rehab. 07/12 and patient examined at bedside. Is doing well denies any fever or chills or pain is under control and the decub ulcer. Patient had debridement by Dr. Knight yesterdaywe plan to place a wound VAC. Patient started on meropenem every 8 hours.CBC ordered. Vitals are stablewith a temp of 97.8 pulse 80. Patient doesn't want to go to a rehab with possible central home with homecare Plan to discharge 07/13patient examined at bedside. Denies any fever or chills. Antibiotic was switched to Omnicef 300 twice a day with plan to discharge her wound VAC tomorrow. Prednisone decreased to 10 milligrams daily with plan to gradually taper until patient's blood pressure is stable. 07/14 patient examined at bedside. No fever no chills no shortness of breath. She is discharged today. Will taper off prednisone slowly from 10 mg for 3 days followed by 5 mg for 3 days and stop patient's. Patient needs to watch her blood pressure if the blood pressure runs low patient need to be continued on prednisone. patient discharged on Omnicef 300 twice a day for 21 days. We'll continue follow up with wound care as outpatient. Wound VAC at negative settings will be continued at home. Discharge diagnoses 1. Stage IV decubitus ulcer right buttocks: 7 x 5 CM. 2. Chronic lower extremity ulcers secondary to peripheral vascular disease. W 3. Rheumatoid arthritis with chronic pain 4. History of DVT. 5. Hypothyroidism. 6. Chronic kidney disease stage II, stable. 7. Anemia of chronic disease. disposition home with home care and wound VAC on discharge Patient Condition at Discharge: Stable Plan - Discharge Summary Discharge Rx Participant: Yes New Discharge Prescriptions: New Cefuroxime Axetil [Ceftin] 500 mg PO BID #42 tab predniSONE 5 mg PO DAILY #9 tab Continue Multivitamins, Thera [Multivitamin (formulary)] 1 tab PO DAILY Ascorbic Acid [Vitamin C] 500 mg PO DAILY Levothyroxine Sodium [Synthroid] 200 mcg PO DAILY Leflunomide [Arava] 20 mg PO DAILY Pregabalin [Lyrica] 100 mg PO BID fentaNYL 25MCG/HR PATCH [Duragesic 25MCG/HR] 25 mcg TRANSDERM Q72H fentaNYL 12MCG/HR PATCH [Duragesic 12MCG/HR] 12 mcg TRANSDERM Q72H Hydrocodone/Acetaminophen [Hydrocodon-Acetaminophn 10-325] 1 tab PO Q8H PRN PRN Reason: Breakthrough Pain Cyanocobalamin (Vitamin B-12) [Vitamin B-12] 1,000 mcg PO DAILY Ferrous Sulfate [Iron] 325 mg PO BID #0 Rivaroxaban [Xarelto] 20 mg PO W/BRKFST Collagenase [Santyl] 1 applic TOPICAL DAILY Collagenase [Santyl] 1 applic TOPICAL DAILY Discontinued predniSONE 20 mg PO DAILY Discharge Medication List Ascorbic Acid [Vitamin C] 500 mg PO DAILY 08/26/17 [History] Cyanocobalamin (Vitamin B-12) [Vitamin B-12] 1,000 mcg PO DAILY 08/26/17 [History] Hydrocodone/Acetaminophen [Hydrocodon-Acetaminophn 10-325] 1 tab PO Q8H PRN 08/26/17 [History] Leflunomide [Arava] 20 mg PO DAILY 08/26/17 [History] Levothyroxine Sodium [Synthroid] 200 mcg PO DAILY 08/26/17 [History] Multivitamins, Thera [Multivitamin (formulary)] 1 tab PO DAILY 08/26/17 [History] Pregabalin [Lyrica] 100 mg PO BID 08/26/17 [History] fentaNYL 12MCG/HR PATCH [Duragesic 12MCG/HR] 12 mcg TRANSDERM Q72H 08/26/17 [History] fentaNYL 25MCG/HR PATCH [Duragesic 25MCG/HR] 25 mcg TRANSDERM Q72H 08/26/17 [History] Ferrous Sulfate [Iron] 325 mg PO BID #0 02/20/19 [Rx] Collagenase [Santyl] 1 applic TOPICAL DAILY 07/10/19 [History] Collagenase [Santyl] 1 applic TOPICAL DAILY 07/10/19 [History] Rivaroxaban [Xarelto] 20 mg PO W/BRKFST 07/10/19 [History] Cefuroxime Axetil [Ceftin] 500 mg PO BID #42 tab 07/13/19 [Rx] predniSONE 5 mg PO DAILY #9 tab 07/14/19 [Rx] Follow up Appointment(s)/Referral(s): Cierra Moyer MD [Primary Care Provider] - 1-2 days (office will call patient to schedule appt) Linden Joya MD [STAFF PHYSICIAN] - 07/20/19 9:30 am [facility], [NON-STAFF] - 1 Week Patient Instructions/Handouts: Cefuroxime (By mouth), How to Prevent Pressure Injuries (DC), Pressure Injury (DC), Negative Pressure Wound Therapy (DC), Chronic Wounds (DC) Activity/Diet/Wound Care/Special Instructions: Home on wound vac on negtive setting Discharge Disposition: HOME WITH HOME HEALTH SERVICES
--- NOTE | 2019-07-14 22:59 | P.PN ---
Subjective Progress Note Date: 07/14/19 his is a 69-year-old female patient with past medical history of rheumatoid arthritis, hypothyroidism, DVT, fibromyalgia, multiple decubitus ulcer, MRSA infection, previous admission for GI bleed secondary to antral ulcer, gastritis and duodenitis requiring blood transfusion, hypothyroidism, chr onic kidney disease stage II. Patient complains of large wound on her right posterior thigh. [facility] under the care of Dr. Medina. Patient states that she developed a new wound possible skin tear on her right buttocks that was not there on her last Wound Center evaluation. She states this became significantly worse very quickly and her home care nurse recommended she go to the emergency center. Patient has been more fatigued in the last couple of days. She denies any significant pain to the back of her leg. No fever, no chills, no nausea or vomiting. She has been in was last seen in the wound healing center on June [address] Medina and notes indicate that her chronic wounds are slowly improving with Santyl and oral prednisone. Patient states that she was placed on prednisone by Dr. Medina approximate 6 weeks ago. She also completed a recent course of antibiotics.he states she is not on the prednisone for rheumatoid arthritis. Patient has been on Arava for rheumatoid arthritis. Patient lives in her own senior apartment. She is able to pivot to get from bed to a chair. Her daughter assists her with showering and she also has [facility] home care in place performing dressing changes during the week and her daughter does dressing changes on the weekend. patient does have history of decubitus ulcer to the right buttocks for which she underwent long-term treatment including wound VAC and flap surgery. Patient presented to [facility] emergency center and patient was found to have a large wound on the right buttocks and multiple wounds on the bilateral lower extremities, right and left pretibial areas, lateral as well and posterior right thigh. She was afebrile, vital signs stable, WBC 12.7, h emoglobin 8.7, platelet count 468, blood sugar 185, BUN 28 creatinine 0.77. Electrolytes and liver function tests within normal limits, lactic acid 1.9, C- reactive protein 59.3, sed rate 44. Urinalysis clear, leukoesterase large, RBCs 44, bacteria rare blood moderate. Patient was given a dose of ceftriaxone and admitted to the [facility] floor. Patient has been seen by wound care team and local wound care addressed. Consult has been added for Dr. Doss for debridement and bone scan ordered to rule out osteomyelitis. Patient's discharge plan is to [facility] for subacute rehab. 07/13/2019 the patient has had a surgical debridement of the large pressure ulceration to the right buttocks and is doing well postoperative. Plans are in place for her to transfer to the rehab facility to receive her course of antibiotic therapy. Also asked for negative pressure therapy. patient now plans on going to her home. Orders are signed for home care and for the wound VAC to be utilize at home. 07/14/2019 patient to be discharged home today, home care nurse will meet her for application of the negative pressure therapy system. Her daughter is here to take her to home. She has no new complaints. Objective - Vital Signs Vital signs: Vital Signs Temp 98.1 F 07/14/19 11:44 Pulse 108 H 07/14/19 11:44 Resp 16 07/14/19 11:44 BP 136/86 07/14/19 11:44 Pulse Ox 95 07/14/19 11:44 Intake & Output 07/14/19 07/14/19 07/15/19 06:59 18:59 06:59 Output Total 1 Balance -1 Output: Urine/Stool Mix 1 Other: Voiding Method Bedside Commode Bedside Commode # Voids 2 # Bowel Movements 1 - Exam Gen: This is an obese 69-year-old female.patient is resting in bed and appears to be comfortable and in no acute distress. HEENT: Head is atraumatic, normocephalic. Pupils equal, round. Sclerae is anicteric. oral mucous membranes moist. NECK: Supple. No JVD. No lymphadenopathy. No thyromegaly. LUNGS: Clear to auscultation. No wheezes or rhonchi. No intercostal retractions. HEART: Regular rate and rhythm. No murmur. ABDOMEN: Soft. Obese. Bowel sounds are present. No masses. No tenderness. EXTREMITIES: dressings to the lower extremities not removed. the surgical dressing to the right buttocks upper thigh area is non-saturated in the site is not very tender. There's been excellent debridement of the necrotic material. Significant nodular deformities bilateral hands secondary to rheumatoid arthritis. NEUROLOGICAL: Patient is awake, alert and oriented x3. - Labs CBC & Chem 7: 07/14/19 09:16 07/14/19 09:16 Labs: Abnormal Lab Results - Last 24 Hours (Table) 07/14/19 07/14/19 Range/Units 09:16 09:16 WBC 11.4 H (3.8-10.6) k/uL Hgb 10.6 L (11.4-16.0) gm/dL MCHC 30.1 L (31.0-37.0) g/dL RDW 17.8 H (11.5-15.5) % Plt Count 517 H (150-450) k/uL Neutrophils # 7.9 H (1.3-7.7) k/uL BUN 33 H (7-17) mg/dL Calcium 10.7 H (8.4-10.2) mg/dL Albumin 3.4 L (3.5-5.0) g/dL Microbiology - Last 24 Hours (Table) 07/10/19 16:28 Gram Stain - Final Buttock Wound Culture - Final Escherichia coli Proteus mirabilis Enterococcus faecalis Laboratory Results WBC 11.4 k/uL (3.8-10.6) H 07/14/19 09:16 RBC 3.98 m/uL (3.80-5.40) 07/14/19 09:16 Hgb 10.6 gm/dL (11.4-16.0) L 07/14/19 09:16 Hct 35.1 % (34.0-46.0) 07/14/19 09:16 MCV 88.2 fL (80.0-100.0) 07/14/19 09:16 MCH 26.5 pg (25.0-35.0) 07/14/19 09:16 MCHC 30.1 g/dL (31.0-37.0) L 07/14/19 09:16 RDW 17.8 % (11.5-15.5) H 07/14/19 09:16 Plt Count 517 k/uL (150-450) H 07/14/19 09:16 Neutrophils % 69 % 07/14/19 09:16 Lymphocytes % 19 % 07/14/19 09:16 Monocytes % 5 % 07/14/19 09:16 Eosinophils % 5 % 07/14/19 09:16 Basophils % 1 % 07/14/19 09:16 Neutrophils # 7.9 k/uL (1.3-7.7) H 07/14/19 09:16 Lymphocytes # 2.1 k/uL (1.0-4.8) 07/14/19 09:16 Monocytes # 0.6 k/uL (0-1.0) 07/14/19 09:16 Eosinophils # 0.6 k/uL (0-0.7) 07/14/19 09:16 Basophils # 0.1 k/uL (0-0.2) 07/14/19 09:16 Manual Slide Review Performed 07/13/19 08:04 Hypochromasia Marked 07/14/19 09:16 Poikilocytosis (manual Present 07/13/19 08:04 Anisocytosis Slight 07/14/19 09:16 Fragmented RBCs Present 07/13/19 08:04 ESR 44 mm/hr (0-20) H 07/10/19 16:45 ESR Cancelled 07/10/19 16:45 PT 11.5 sec (9.0-12.0) 07/10/19 16:45 INR 1.1 (<1.2) 07/10/19 16:45 APTT 29.3 sec (22.0-30.0) 07/10/19 16:45 Sodium 139 mmol/L (137-145) 07/14/19 09:16 Potassium 4.6 mmol/L (3.5-5.1) 07/14/19 09:16 Chloride 102 mmol/L (98-107) 07/14/19 09:16 Carbon Dioxide 29 mmol/L (22-30) 07/14/19 09:16 Anion Gap 8 mmol/L 07/14/19 09:16 BUN 33 mg/dL (7-17) H 07/14/19 09:16 Creatinine 0.85 mg/dL (0.52-1.04) 07/14/19 09:16 Est GFR (CKD-EPI)AfAm 80 (>60 ml/min/1.73 sqM) 07/14/19 09:16 Est GFR (CKD-EPI)NonAf 69 (>60 ml/min/1.73 sqM) 07/14/19 09:16 Glucose 98 mg/dL (74-99) 07/14/19 09:16 Plasma Lactic Acid Darryl 1.9 mmol/L (0.7-2.0) 07/10/19 16:45 Calcium 10.7 mg/dL (8.4-10.2) H 07/14/19 09:16 Total Bilirubin 0.4 mg/dL (0.2-1.3) 07/14/19 09:16 AST 27 U/L (14-36) 07/14/19 09:16 ALT 18 U/L (4-34) 07/14/19 09:16 Alkaline Phosphatase 94 U/L (38-126) 07/14/19 09:16 C-Reactive Protein 59.3 mg/L (<10.0) H 07/10/19 16:45 Total Protein 6.7 g/dL (6.3-8.2) 07/14/19 09:16 Albumin 3.4 g/dL (3.5-5.0) L 07/14/19 09:16 Urine Color Yellow 07/10/19 19:50 Urine Appearance Clear (Clear) 07/10/19 19:50 Urine pH 5.0 (5.0-8.0) 07/10/19 19:50 Ur Specific [place] 1.020 (1.001-1.035) 07/10/19 19:50 Urine Protein Negative (Negative) 07/10/19 19:50 Urine Glucose (UA) Negative (Negative) 07/10/19 19:50 Urine Ketones Negative (Negative) 07/10/19 19:50 Urine Blood Moderate (Negative) H 07/10/19 19:50 Urine Nitrite Positive (Negative) H 07/10/19 19:50 Urine Bilirubin Negative (Negative) 07/10/19 19:50 Urine Urobilinogen <2.0 mg/dL (<2.0) 07/10/19 19:50 Ur Leukocyte Esterase Large (Negative) H 07/10/19 19:50 Urine RBC 44 /hpf (0-5) H 07/10/19 19:50 Urine WBC 3 /hpf (0-5) 07/10/19 19:50 Ur Squamous Epith Cells 5 /hpf (0-4) H 07/10/19 19:50 Urine Bacteria Rare /hpf (None) H 07/10/19 19:50 Urine Mucus Rare /hpf (None) H 07/10/19 19:50 Microbiology 07/10/19 16:28 Buttock Gram Stain - Final 07/10/19 16:28 Buttock Wound Culture - Final Escherichia coli Proteus mirabilis Enterococcus faecalis Assessment and Plan (1) Stage 4 pressure ulcer Narrative/Plan: Patient presented to [facility] emergency center and patient was found to have a large wound on the right buttocks and multiple wounds on the bilateral lower extremities, right and left pretibial areas, lateral as well and posterior right thigh. She was afebrile, vital signs stable, WBC 12.7, hemoglobin 8.7, platelet count 468, blood sugar 185, BUN 28 creatinine 0.77. Electrolytes and liver function tests within normal limits, lactic acid 1.9, C- reactive protein 59.3, sed rate 44. Urinalysis clear, leukoesterase large, RBCs 44, bacteria rare blood moderate. Patient was given a dose of ceftriaxone and admitted to the [facility] floor. Patient has been seen by wound care team and local wound care addressed. Consult has been added for Dr. Doss for debridement and bone scan ordered to rule out osteomyelitis. Patient's discharge plan is to [facility] for subacute rehab. 07/11/2019 the patient feels very poorly. She has had a minimal fall with what she thought was a minimal abrasion to her right hip but is read up with the very large pressure ulceration with necrosis of underlying tissue. She will be seen by the surgeon and surgical debridement of the site as expected. The chronic inflammation to her lower extremities without acute change is as per who is seen her recently. Of the limb she denies other HEENT difficulties. Does not believe that she's had fever but she had chills. Please see nursing party demonstrator for the extensive ulcerations. If the surgeon has seen her if the base is clean and negative pressure therapy will likely be utilized to help with this problem. Wound cultures are obtained and antibiotic therapy is being utilized this point in time with meropenem given her recent cultures that showed evidence of Pseudomonas as well as other pathogens. The wound team has evaluated the limbs and we are continue local wound care. 07/13/2019 Patient is postsurgery and is doing quite well. She will be going to home not to subacute rehab. Orders for negative pressure therapy in the home setting in follow-up in the wound center have been requested. Wound cultures with E. coli andProteus mirabilis, both susceptible to cefuroxime. Consequently this is sent to her home pharmacy. I believe she'll be discharged home tomorrow based on the current data. She will follow in the wound center after discharge. 07/14/2019 the patient is feeling better. She will be discharged home today. The negative pressure therapy applied by the nurse when she arrives home today. Antibiotic therapy with cefuroxime 500 mg every 12 hours has been sent to her pharmacy. She will follow in the wound healing Center for ongoing care. The surgical team does not believe she needs any further surgical intervention. Status: Acute Code(s): L89.94 - PRESSURE ULCER OF UNSPECIFIED SITE, STAGE 4 SNOMED Code(s): 211667476
== END 2019-07-14 15:27 | disposition home health service (06) | DRG 580 ==
LOC: EC 15:44 → 5NMEDONC 18:04 → OBSVTOIN 07-12 10:26
PROVIDERS: ADMIT Internal Medicine; ATTEND Internal Medicine
PROC: 0KBN0ZZ Excision of Right Hip Muscle, Open Approach (ICD-10-PCS; principal; 2019-07-11)
DX: L89.314 Pressure ulcer of right buttock, stage 4 (principal); L97.909 Non-pressure chronic ulcer of unspecified part of unspecified lower leg with unspecified severity; I73.9 Peripheral vascular disease, unspecified; I12.9 Hypertensive chronic kidney disease with stage 1 through stage 4 chronic kidney disease, or unspecified chronic kidney disease; D63.8 Anemia in other chronic diseases classified elsewhere; E03.9 Hypothyroidism, unspecified; G89.29 Other chronic pain; M06.9 Rheumatoid arthritis, unspecified; M79.7 Fibromyalgia; N18.2 Chronic kidney disease, stage 2 (mild); Z79.01 Long term (current) use of anticoagulants; Z79.890 Hormone replacement therapy; Z79.899 Other long term (current) drug therapy; Z80.6 Family history of leukemia; Z80.8 Family history of malignant neoplasm of other organs or systems; Z86.14 Personal history of Methicillin resistant Staphylococcus aureus infection; Z86.718 Personal history of other venous thrombosis and embolism; Z87.11 Personal history of peptic ulcer disease; Z87.19 Personal history of other diseases of the digestive system; Z88.0 Allergy status to penicillin; E66.9 Obesity, unspecified; Z68.34 Body mass index [BMI] 34.0-34.9, adult; Z79.891 Long term (current) use of opiate analgesic
CPT/HCPCS: 36415; 78315; 80053; 81001; 83605; 85025; 85610; 85652; 85730; 86140; 87070; 87077; 87186; 87205; 99284

== ENCOUNTER 2019-07-24 17:09 | Inpatient (IN) | payer MEDICARE ==
--- NOTE | 2019-07-24 18:04 | ED ---
Weakness HPI - General Chief complaint: Weakness Stated complaint: Weakness Time Seen by Provider: 07/24/19 17:23 Source: patient, EMS, RN notes reviewed, old records reviewed Mode of arrival: EMS Limitations: no limitations - History of Present Illness MD Complaint: generalized weakness, lack of energy, difficulty walking -: days(s) Location: generalized Severity: mild Severity scale (1-10): 3 Consistency: constant Improves with: none Worsens with: none Context: recent illness Associated Symptoms: denies other symptoms - Related Data Home Medications Medication Instructions Recorded Confirmed Hydrocodone/Acetaminophen 1 tab PO TID 08/26/17 07/24/19 [Hydrocodon-Acetaminophn 10-325] Leflunomide [Arava] 20 mg PO DAILY 08/26/17 07/24/19 Levothyroxine Sodium [Synthroid] 200 mcg PO DAILY 08/26/17 07/24/19 Pregabalin [Lyrica] 100 mg PO BID 08/26/17 07/24/19 fentaNYL 12MCG/HR PATCH [Duragesic 12 mcg TRANSDERM Q72H 08/26/17 07/24/19 12MCG/HR] fentaNYL 25MCG/HR PATCH [Duragesic 25 mcg TRANSDERM Q72H 08/26/17 07/24/19 25MCG/HR] Collagenase [Santyl] 1 applic TOPICAL DAILY 07/10/19 07/24/19 Rivaroxaban [Xarelto] 20 mg PO W/BRKFST 07/10/19 07/24/19 Previous Rx's Medication Instructions Recorded Cefuroxime Axetil [Ceftin] 500 mg PO BID #42 tab 07/13/19 Allergies Allergy/AdvReac Type Severity Reaction Status Date / Time Penicillins Allergy Rash/Hives Verified 07/24/19 19:29 Review of Systems ROS Statement: Those systems with pertinent positive or pertinent negative responses have been documented in the HPI. ROS Other: All systems not noted in ROS Statement are negative. Past Medical History Past Medical History: Deep Vein Thrombosis (DVT), Fibromyalgia, Rheumatoid Arthritis (RA), Skin Disorder, Thyroid Disorder Additional Past Medical History / Comment(s): "LEAKY BLADDER" ,"POOR CIRCULATION", HX Wound rt foot 3rd toe, bunion on left foot, PAST RT HIP FX-NO SX DONE. History of Any Multi-Drug Resistant Organisms: MRSA Date of last positivie culture/infection: 02/17/18 MDRO Source:: Leg: lower right Past Surgical History: Appendectomy, Cholecystectomy, Tonsillectomy Additional Past Surgical History / Comment(s): Left foot wound debridement. Nodule removed from thyroid. sinus surgery. surgical excision and debridment of sacrum with wound VAC placement on 08/05/15 and sx done(flap) that developed pin hole leak -had 2nd sx to repair". Debridement wound care to right lower extremity wound on 08/21/15. Past Anesthesia/Blood Transfusion Reactions: No Reported Reaction Past Psychological History: No Psychological Hx Reported Smoking Status: Never smoker Past Alcohol Use History: None Reported Past Drug Use History: None Reported - Past Family History Mother Family Medical History: AFIB, Cancer Additional Family Medical History / Comment(s): Past away. skin cancer Father Family Medical History: Liver Disease, Rheumatoid Arthritis (RA) Additional Family Medical History / Comment(s): Leukemia. at age 72 of liver problem. General Exam - General Exam Comments Initial Comments: significant sacral wound Limitations: no limitations General appearance: alert, in no apparent distress Head exam: Present: atraumatic, normocephalic, normal inspection Eye exam: Present: normal appearance, PERRL, EOMI. Absent: scleral icterus, conjunctival injection, periorbital swelling ENT exam: Present: normal exam, mucous membranes moist Neck exam: Present: normal inspection. Absent: tenderness, meningismus, lymphadenopathy Respiratory exam: Present: normal lung sounds bilaterally. Absent: respiratory distress, wheezes, rales, rhonchi, stridor Cardiovascular Exam: Present: regular rate, normal rhythm, normal heart sounds. Absent: systolic murmur, diastolic murmur, rubs, gallop, clicks GI/Abdominal exam: Present: soft, normal bowel sounds. Absent: distended, tenderness, guarding, rebound, rigid Extremities exam: Present: normal inspection, full ROM, normal capillary refill. Absent: tenderness, pedal edema, joint swelling, calf tenderness Back exam: Present: normal inspection Neurological exam: Present: alert, oriented X3, CN II-XII intact Psychiatric exam: Present: normal affect, normal mood Skin exam: Present: warm, dry, intact, normal color. Absent: rash Course Vital Signs 07/24/19 07/24/19 07/24/19 17:16 17:29 18:29 Temperature 98.8 F Pulse Rate 100 65 Respiratory 20 20 20 Rate Blood Pressure 98/59 98/59 104/66 O2 Sat by Pulse 100 100 97 Oximetry 07/24/19 07/24/19 19:00 20:00 Temperature Pulse Rate 90 90 Respiratory 18 18 Rate Blood Pressure 115/69 111/79 O2 Sat by Pulse 96 96 Oximetry - Reevaluation(s) Reevaluation #1: 07/24/19 20:28 Medical record of multiple recent inpatient admissions for very similar conditions - Consultations Consultation #1: Page Dr. Wilkins for admission will agree for admisssion EKG Findings - EKG Comments: EKG Findings:: EKG shows sinus rhythm rate of 93, ID [id number], QRS 88, QTC 417 Medical Decision Making - Medical Decision Making 69 female with acute on chronic sacral decubitus wound was reopened for likely infection significant weakness patient presents for also very anemic symptomatic anemia loss of 3 g of hemoglobin since last ER visit. Patient will be admitted for wound care - Lab Data Result diagrams: 07/24/19 19:15 07/24/19 19:15 Lab Results 07/24/19 07/24/19 07/24/19 Range/Units 19:15 19:15 19:15 WBC 15.2 H (3.8-10.6) k/uL RBC 3.00 L (3.80-5.40) m/uL Hgb 7.9 L D (11.4-16.0) gm/dL Hct 26.1 L (34.0-46.0) % MCV 87.0 (80.0-100.0) fL MCH 26.5 (25.0-35.0) pg MCHC 30.4 L (31.0-37.0) g/dL RDW 17.3 H (11.5-15.5) % Plt Count 508 H (150-450) k/uL Neutrophils % 85 % Lymphocytes % 7 % Monocytes % 4 % Eosinophils % 3 % Basophils % 0 % Neutrophils # 12.9 H (1.3-7.7) k/uL Lymphocytes # 1.1 (1.0-4.8) k/uL Monocytes # 0.7 (0-1.0) k/uL Eosinophils # 0.4 (0-0.7) k/uL Basophils # 0.0 (0-0.2) k/uL Hypochromasia Marked Poikilocytosis Slight Anisocytosis Slight PT 13.2 H (9.0-12.0) sec INR 1.3 H (<1.2) APTT 36.2 H (22.0-30.0) sec Sodium 132 L (137-145) mmol/L Potassium 4.4 (3.5-5.1) mmol/L Chloride 98 (98-107) mmol/L Carbon Dioxide 30 (22-30) mmol/L Anion Gap 4 mmol/L BUN 29 H (7-17) mg/dL Creatinine 0.91 (0.52-1.04) mg/dL Est GFR (CKD-EPI)AfAm 73 (>60 ml/min/1.73 sqM) Est GFR (CKD-EPI)NonAf 64 (>60 ml/min/1.73 sqM) Glucose 86 (74-99) mg/dL Calcium 9.0 (8.4-10.2) mg/dL Phosphorus 2.9 (2.5-4.5) mg/dL Magnesium 2.0 (1.6-2.3) mg/dL Total Bilirubin 0.7 (0.2-1.3) mg/dL AST 25 (14-36) U/L ALT 16 (4-34) U/L Alkaline Phosphatase 91 (38-126) U/L Creatine Kinase 54 (30-135) U/L Total Protein 5.3 L (6.3-8.2) g/dL Albumin 2.5 L (3.5-5.0) g/dL Disposition Clinical Impression: Pressure ulcer stage III, Pressure ulcer of right ischium, Anemia associated with acute blood loss, Stage 4 pressure ulcer, Leg edema Disposition: ADMITTED IP TO THIS HOSP Condition: Poor Is patient prescribed a controlled substance at d/c from ED?: No Referrals: Cierra Moyer MD [Primary Care Provider] - 1-2 days
[2019-07-24] MEDS ORDERED: MORPHINE SULFATE 2 MG/ML SYRINGE IVP PRN (18:19)
[2019-07-24] MEDS ORDERED: MORPHINE SULFATE 4 MG/ML SYRINGE IV STA (18:19)
[2019-07-24] MEDS ORDERED: VANCOMYCIN IV PER PHARMACY 1 EACH MISC MISCELLANE PRN (18:19)
[2019-07-24] MEDS ORDERED: SODIUM CHLORIDE 0.9% 1,000 ML IV STA (18:19)
[2019-07-24] MEDS ORDERED: VANCOMYCIN 1,750 MG in SODIUM CHLORIDE 0.9% 500 ML 500 ML IVPB ONE (18:45)
[2019-07-24 19:59] LABS: Anisocytosis Slight; Basophils % (A) 0 %; Eosinophils # (A) 0.4 k/uL (0-0.7); Eosinophils % (A) 3 %; HCT 26.1 % (34.0-46.0); Hypochromasia Marked; Lymphocytes # (A) 1.1 k/uL (1.0-4.8); Lymphocytes % (A) 7 %; MCH 26.5 pg (25.0-35.0); MCHC 30.4 g/dL (31.0-37.0); Mean Platelet Volume 8.4; Monocytes # (A) 0.7 k/uL (0-1.0); Monocytes % (A) 4 %; Neutrophils # (A) 12.9 k/uL (1.3-7.7); Neutrophils % (A) 85 %; Platelet Count 508 k/uL (150-450); Poikilocytosis Slight; RDW 17.3 % (11.5-15.5); WBC 15.2 k/uL (3.8-10.6)
[2019-07-24 20:03] LABS: HGB 7.9 gm/dL (11.4-16.0)
[2019-07-24 20:08] LABS: Albumin 2.5 g/dL (3.5-5.0); INR 1.3 (<1.2); Partial Thromboplastin Time 36.2 sec (22.0-30.0); Phosphorus 2.9 mg/dL (2.5-4.5); Prothrombin Time 13.2 sec (9.0-12.0); Total Bilirubin 0.7 mg/dL (0.2-1.3); Total Protein 5.3 g/dL (6.3-8.2)
[2019-07-24 20:25] LABS: Potassium 4.4 mmol/L (3.5-5.1)
[2019-07-24 20:53] LABS: Appearance,Urine Cloudy (Clear); Bacteria,Urine Rare /hpf; Bilirubin,Urine Negative (Negative); Blood,Urine Negative (Negative); Budding Yeast,Urine Occasional /hpf; Color,Urine Yellow; Glucose,Urine (UA) Negative (Negative); Hyaline Casts,Urine 1 /lpf (0-2); Ketones,Urine Negative (Negative); Leukocyte Esterase,Urine Large (Negative); Mucus,Urine Rare /hpf; Nitrite,Urine Negative (Negative); Protein,Urine Trace (Negative); RBC,Urine 4 /hpf (0-5); Squamous Epithelial Cell,Urine 10 /hpf (0-4); Urobilinogen,Urine <2.0 mg/dL (<2.0); WBC,Urine 26 /hpf (0-5)
[2019-07-25] MEDS: VANCOMYCIN 1,750 MG in SODIUM CHLORIDE 0.9% 500 ML 500 ML IVPB SCH (12:08)
--- NOTE | 2019-07-25 14:03 | P.GSCN ---
<Nia Mcknight - Last Filed: 07/25/19 14:01> History of Present Illness Consult date: 07/25/19 Reason for Consult: known Requesting physician: Curtis Bynum History of present illness: CHIEF COMPLAINT: known HISTORY OF PRESENT ILLNESS: 69 year old female who presented to the ER due to weakness. General surgery was consulted to evaluate patients decubitis ulcer. Patient recently underwent debridement of right buttock decubitis ulcer with Dr. Doss on 07/11/19. A wound vac was placed and patient was discharged in stable condition. Patient was examined in the ER with Dr. Rivera. PAST MEDICAL HISTORY: See list. PAST SURGICAL HISTORY: See list. MEDICATIONS: See list. ALLERGIES: See list. SOCIAL HISTORY: No illicit drug use. REVIEW OF SYSTEMS: CONSTITUTIONAL: Denies fever or chills. Reports weakness. HEENT: Denies blurred vision, vision changes, or eye pain. Denies hemoptysis ENDOCRINE: Denies heat or cold intolerance. CARDIOVASCULAR: Denies chest pain or pressure. RESPIRATORY: No shortness of breath. GASTROINTESTINAL: Denies abdominal pain. Denies nausea or vomiting. NEURO: Denies history of seizures. PSYCH: No depression or suicidal ideation HEMATOLOGIC: Denies bleeding disorders. LYMPHATIC: The patient denies any lumps and bumps around the neck. GENITOURINARY: Denies any blood in urine or increased urinary frequency. MUSCULOSKELETAL: Denies myalgias. Denies joint swelling. Denies decreased range of motion beyond patients baseline. SKIN: Denies pruitis. Denies rash. Reports chronic wound to buttocks. PHYSICAL EXAM: VITAL SIGNS: Reviewed GENERAL: Well-developed in no acute distress. HEENT: No sclera icterus. Extraocular movements grossly intact. Moist buccal mucosa. Head is atraumatic, normocephalic. Hears conversational speech. No nasal drainage. NECK: Supple without lymphadenopathy. CHEST: Non-labored respirations and equal bilateral excursions. CARDIOVASCULAR: Regular rate with regular rhythm. Palpable 2+ radial pulses. ABDOMEN: Soft. Nondistended. Nontender. MUSCULOSKELETAL: No clubbing or cyanosis. NEUROLOGIC: No focal or lateralizing signs. Cranial nerves II through XII grossly intact. PSYCH: Appropriate affect. Alert and oriented to person, place and time. SKIN: Well perfused. Good skin turgor. Buttock wound bed clean without necrotic tissue. LABORATORY DATA: WBC 15.2. Hemoglobin 7.9. Blood count 508. Sodium 132. Potassium 4.4. BUN 29. Creatinine 0.91. ASSESSMENT: 1. Stage IV buttock decubitus ulcer PLAN: Patients wound bed is clean without areas of necrotic tissue. No further debridement necessary. May resume wound vac from our standpoint We will sign off. Please re-consult if needed Nurse practitioner note has been reviewed by physician. Signing provider agrees with the documented findings, assessment, and plan of care. Past Medical History Past Medical History: Deep Vein Thrombosis (DVT), Fibromyalgia, Rheumatoid Arthritis (RA), Skin Disorder, Thyroid Disorder Additional Past Medical History / Comment(s): "LEAKY BLADDER" ,"POOR CIRCULATION", HX Wound rt foot 3rd toe, bunion on left foot, PAST RT HIP FX-NO SX DONE. History of Any Multi-Drug Resistant Organisms: MRSA Year Discovered:: 02/17/18 MDRO Source:: Leg: lower right Past Surgical History: Appendectomy, Cholecystectomy, Tonsillectomy Additional Past Surgical History / Comment(s): Left foot wound debridement. Nodule removed from thyroid. sinus surgery. surgical excision and debridment of sacrum with wound VAC placement on 08/05/15 and sx done(flap) that developed pin hole leak -had 2nd sx to repair". Debridement wound care to right lower extremity wound on 08/21/15. Past Anesthesia/Blood Transfusion Reactions: No Reported Reaction Past Psychological History: No Psychological Hx Reported Smoking Status: Never smoker Past Alcohol Use History: None Reported Past Drug Use History: None Reported - Past Family History Mother Family Medical History: AFIB, Cancer Additional Family Medical History / Comment(s): Past away. skin cancer Father Family Medical History: Liver Disease, Rheumatoid Arthritis (RA) Additional Family Medical History / Comment(s): Leukemia. at age 72 of liver problem. Medications and Allergies Home Medications Medication Instructions Recorded Confirmed Type Hydrocodone/Acetaminophen 1 tab PO TID 08/26/17 07/24/19 History [Hydrocodon-Acetaminophn 10-325] Leflunomide [Arava] 20 mg PO DAILY 08/26/17 07/24/19 History Levothyroxine Sodium [Synthroid] 200 mcg PO DAILY 08/26/17 07/24/19 History Pregabalin [Lyrica] 100 mg PO BID 08/26/17 07/24/19 History fentaNYL 12MCG/HR PATCH [Duragesic 1 patch TRANSDERM Q72H 08/26/17 07/24/19 Hist ory 12MCG/HR] fentaNYL 25MCG/HR PATCH [Duragesic 1 patch TRANSDERM Q72H 08/26/17 07/24/19 His tory 25MCG/HR] Collagenase [Santyl] 1 applic TOPICAL DAILY 07/10/19 07/24/19 History Rivaroxaban [Xarelto] 20 mg PO W/BRKFST 07/10/19 07/24/19 History Cefuroxime Axetil [Ceftin] 500 mg PO BID #42 tab 07/13/19 07/24/19 Rx Allergies Allergy/AdvReac Type Severity Reaction Status Date / Time Penicillins Allergy Rash/Hives Verified 07/24/19 19:29 Surgical - Exam Vital Signs Temp Pulse Resp BP Pulse Ox 98.8 F 100 20 98/59 100 07/24/19 17:16 07/24/19 17:16 07/24/19 17:16 07/24/19 17:16 07/24/19 17:16 Results - Labs 07/24/19 19:15 07/24/19 19:15 Abnormal Lab Results - Last 24 Hours (Table) 07/24/19 07/24/19 07/24/19 Range/Units 19:15 19:15 19:15 WBC 15.2 H (3.8-10.6) k/uL RBC 3.00 L (3.80-5.40) m/uL Hgb 7.9 L D (11.4-16.0) gm/dL Hct 26.1 L (34.0-46.0) % MCHC 30.4 L (31.0-37.0) g/dL RDW 17.3 H (11.5-15.5) % Plt Count 508 H (150-450) k/uL Neutrophils # 12.9 H (1.3-7.7) k/uL PT 13.2 H (9.0-12.0) sec INR 1.3 H (<1.2) APTT 36.2 H (22.0-30.0) sec Sodium 132 L (137-145) mmol/L BUN 29 H (7-17) mg/dL Total Protein 5.3 L (6.3-8.2) g/dL Albumin 2.5 L (3.5-5.0) g/dL Urine Appearance (Clear) Urine Protein (Negative) Ur Leukocyte Esterase (Negative) Urine WBC (0-5) /hpf Ur Squamous Epith Cells (0-4) /hpf Urine Bacteria (None) /hpf Urine Mucus (None) /hpf Urine Yeast (Budding) (None) /hpf 07/24/19 Range/Units 20:10 WBC (3.8-10.6) k/uL RBC (3.80-5.40) m/uL Hgb (11.4-16.0) gm/dL Hct (34.0-46.0) % MCHC (31.0-37.0) g/dL RDW (11.5-15.5) % Plt Count (150-450) k/uL Neutrophils # (1.3-7.7) k/uL PT (9.0-12.0) sec INR (<1.2) APTT (22.0-30.0) sec Sodium (137-145) mmol/L BUN (7-17) mg/dL Total Protein (6.3-8.2) g/dL Albumin (3.5-5.0) g/dL Urine Appearance Cloudy H (Clear) Urine Protein Trace H (Negative) Ur Leukocyte Esterase Large H (Negative) Urine WBC 26 H (0-5) /hpf Ur Squamous Epith Cells 10 H (0-4) /hpf Urine Bacteria Rare H (None) /hpf Urine Mucus Rare H (None) /hpf Urine Yeast (Budding) Occasional H (None) /hpf Microbiology - Last 24 Hours (Table) 07/24/19 20:10 Urine Culture - Preliminary Urine,Voided Diabetes panel 07/24/19 Range/Units 19:15 Sodium 132 L (137-145) mmol/L Potassium 4.4 (3.5-5.1) mmol/L Chloride 98 (98-107) mmol/L Carbon Dioxide 30 (22-30) mmol/L BUN 29 H (7-17) mg/dL Creatinine 0.91 (0.52-1.04) mg/dL Glucose 86 (74-99) mg/dL Calcium 9.0 (8.4-10.2) mg/dL AST 25 (14-36) U/L ALT 16 (4-34) U/L Alkaline Phosphatase 91 (38-126) U/L Total Protein 5.3 L (6.3-8.2) g/dL Albumin 2.5 L (3.5-5.0) g/dL Calcium panel 07/24/19 Range/Units 19:15 Calcium 9.0 (8.4-10.2) mg/dL Phosphorus 2.9 (2.5-4.5) mg/dL Albumin 2.5 L (3.5-5.0) g/dL Pituitary panel 07/24/19 Range/Units 19:15 Sodium 132 L (137-145) mmol/L Potassium 4.4 (3.5-5.1) mmol/L Chloride 98 (98-107) mmol/L Carbon Dioxide 30 (22-30) mmol/L BUN 29 H (7-17) mg/dL Creatinine 0.91 (0.52-1.04) mg/dL Glucose 86 (74-99) mg/dL Calcium 9.0 (8.4-10.2) mg/dL Adrenal panel 07/24/19 Range/Units 19:15 Sodium 132 L (137-145) mmol/L Potassium 4.4 (3.5-5.1) mmol/L Chloride 98 (98-107) mmol/L Carbon Dioxide 30 (22-30) mmol/L BUN 29 H (7-17) mg/dL Creatinine 0.91 (0.52-1.04) mg/dL Glucose 86 (74-99) mg/dL Calcium 9.0 (8.4-10.2) mg/dL Total Bilirubin 0.7 (0.2-1.3) mg/dL AST 25 (14-36) U/L ALT 16 (4-34) U/L Alkaline Phosphatase 91 (38-126) U/L Total Protein 5.3 L (6.3-8.2) g/dL Albumin 2.5 L (3.5-5.0) g/dL <Bruna Rivera - Last Filed: 07/26/19 12:39> History of Present Illness History of present illness: As above. Platelet count 508. Patient has multiple varying wounds of the lower extremities. Wound of concern is the rectum broad-based at least over 6 x 5 cm involving the subcutaneous tissue to the muscle, stage IV decubiti ulcer of the sacrum. No active drainage. No fibrinous exudate. Wound bed is clean. No further debridement needed of the buttock/sacral decubiti ulcer Recommend continue wound VAC. Surgical - Exam Vital Signs Temp Pulse Resp BP Pulse Ox 98.8 F 100 20 98/59 100 07/24/19 17:16 07/24/19 17:16 07/24/19 17:16 07/24/19 17:16 07/24/19 17:16 Results - Labs 07/25/19 23:47 07/26/19 07:58 Abnormal Lab Results - Last 24 Hours (Table) 07/24/19 07/25/19 07/25/19 Range/Units 19:15 16:11 23:47 RBC 3.07 L 2.75 L (3.80-5.40) m/uL Hgb 7.9 L 7.3 L (11.4-16.0) gm/dL Hct 27.1 L 24.0 L (34.0-46.0) % MCHC 29.3 L 30.3 L (31.0-37.0) g/dL RDW 17.4 H 16.9 H (11.5-15.5) % Neutrophils # 8.4 H (1.3-7.7) k/uL Lymphocytes # 0.6 L 0.7 L (1.0-4.8) k/uL BUN (7-17) mg/dL Iron 6 L (50-170) ug/dL % Saturation 2.50 L (12.00-45.00) Total Protein (6.3-8.2) g/dL Albumin (3.5-5.0) g/dL 07/26/19 Range/Units 07:58 RBC (3.80-5.40) m/uL Hgb (11.4-16.0) gm/dL Hct (34.0-46.0) % MCHC (31.0-37.0) g/dL RDW (11.5-15.5) % Neutrophils # (1.3-7.7) k/uL Lymphocytes # (1.0-4.8) k/uL BUN 19 H (7-17) mg/dL Iron (50-170) ug/dL % Saturation (12.00-45.00) Total Protein 4.7 L (6.3-8.2) g/dL Albumin 2.2 L (3.5-5.0) g/dL Microbiology - Last 24 Hours (Table) 07/26/19 21:30 Anaerobic Culture - Preliminary Leg - Right 07/25/19 23:26 Wound Culture - Preliminary Leg - Right 07/25/19 21:30 Wound Culture - Preliminary Leg - Left 07/25/19 21:30 Anaerobic Culture - Preliminary Leg - Left 07/25/19 21:30 Anaerobic Culture - Preliminary Buttock 07/25/19 21:30 Wound Culture - Preliminary Buttock 07/24/19 20:10 Urine Culture - Preliminary Urine,Voided Gram Neg Bacilli 07/24/19 19:15 Blood Culture - Preliminary Blood No Growth after 24 hours Diabetes panel 07/26/19 Range/Units 07:58 Sodium 137 (137-145) mmol/L Potassium 3.8 (3.5-5.1) mmol/L Chloride 107 (98-107) mmol/L Carbon Dioxide 24 (22-30) mmol/L BUN 19 H (7-17) mg/dL Creatinine 0.76 (0.52-1.04) mg/dL Glucose 80 (74-99) mg/dL Calcium 8.5 (8.4-10.2) mg/dL AST 25 (14-36) U/L ALT 13 (4-34) U/L Alkaline Phosphatase 73 (38-126) U/L Total Protein 4.7 L (6.3-8.2) g/dL Albumin 2.2 L (3.5-5.0) g/dL Calcium panel 07/26/19 Range/Units 07:58 Calcium 8.5 (8.4-10.2) mg/dL Albumin 2.2 L (3.5-5.0) g/dL Pituitary panel 07/26/19 Range/Units 07:58 Sodium 137 (137-145) mmol/L Potassium 3.8 (3.5-5.1) mmol/L Chloride 107 (98-107) mmol/L Carbon Dioxide 24 (22-30) mmol/L BUN 19 H (7-17) mg/dL Creatinine 0.76 (0.52-1.04) mg/dL Glucose 80 (74-99) mg/dL Calcium 8.5 (8.4-10.2) mg/dL Adrenal panel 07/26/19 Range/Units 07:58 Sodium 137 (137-145) mmol/L Potassium 3.8 (3.5-5.1) mmol/L Chloride 107 (98-107) mmol/L Carbon Dioxide 24 (22-30) mmol/L BUN 19 H (7-17) mg/dL Creatinine 0.76 (0.52-1.04) mg/dL Glucose 80 (74-99) mg/dL Calcium 8.5 (8.4-10.2) mg/dL Total Bilirubin 0.6 (0.2-1.3) mg/dL AST 25 (14-36) U/L ALT 13 (4-34) U/L Alkaline Phosphatase 73 (38-126) U/L Total Protein 4.7 L (6.3-8.2) g/dL Albumin 2.2 L (3.5-5.0) g/dL
--- NOTE | 2019-07-25 16:00 | P.HPIM ---
History of Present Illness H&P Date: 07/25/19 This is a 69-year-old female patient with past medical history of rheumatoid arthritis, hypothyroidism, DVT, fibromyalgia, multiple decubitus ulcer, MRSA infection, previous admission for GI bleed secondary to antral ulcer, gastritis and duodenitis requiring blood transfusion, hypothyroidism, chronic kidney disease stage II. Patient can stand with the help of walker and can prevent out of her bed but is a currently bedbound and has minimal mobility. She has chronic wounds on bilateral lower extremity and a decub ulcer in the sacrum. Patient was last seen on July 11 for a large wound on her right posterior thigh that worsened very quickly which was debrided by Dr. Doss and w as sent home on oral antibiotics and for wound VAC. Patient [facility] under the care of Dr. Medina but developed a new wound possible skin tear on her right buttocks that was not there on her last Wound Center evaluation. Prednisone was tapered during that visit. Patient comes in today with increased weakness and inability to stand. Patient states that she always have an infection when she feels this. On assessment of vital patient has a temp of 97.8 pulse 85 blood pressure 111/73 saturating 98% on room air. Blood work is positive for a WBC of 11.2 and hemoglobin dropped to 7.9 platelets 505 creatinine 0.9 BUN 29 urine drug screen does suggest a large leukocyte Estrace 26 WBC concerning for UTI. Patient initiated on Rocephin and vancomycin in the ER. Infectious disease was consulted for further evaluation. Review of Systems Constitutional: Denies chills, Denies fever, endorses lethargy and weakness Eyes: denies decreased vision, denies diplopia, denies discharge, denies pain Ears: deny: decreased hearing Ears, nose, mouth and throat: Denies dental pain, Denies headache, Denies nasal discharge, Denies nose pain Cardiovascular: Denies chest pain, Denies decreased exercise tolerance, Denies edema, Denies high blood pressure, Denies irregular heart beat, Denies palpitations, Denies paroxysmal nocturnal dyspnea, Denies rapid heart beat, Denies shortness of breath Respiratory: Denies congestion, Denies cough, Denies cough with sputum, Denies dyspnea, Denies home oxygen, Denies wheezing Gastrointestinal: Denies abdominal pain, Denies change in bowel habits, Denies coffee ground emesis, Denies early satiety, Denies excessive gas, Denies heartburn, Denies hematemesis, Denies hematochezia, Denies loss of appetite, Denies nausea, Denies vomiting Genitourinary: Denies dysuria, Denies flank pain, Denies kidney stones, Denies menorrhagia, Denies urgency, Denies urinary frequency Musculoskeletal: Denies gait dysfunction, Denies limitation of motion, Denies morning stiffness, Denies muscle cramps Integumentary: Endorses bilateral lower extremity nonhealing wound, Denies allie ttle nails, Denies change in hair/nails, Denies darkening of skin Neurological: Denies balance difficulties, Denies change in speech, Denies double vision, Denies gait dysfunction, Denies loss of vision, Denies motor disturbance, Denies numbness, Denies paralysis, Denies paresthesias, Denies seizures Psychiatric: Denies anxiety, Denies depression Endocrine: Denies excessive sweating, Denies excessive thirst, Denies high blood sugars, Denies palpitations Hematologic/Lymphatic: Denies easy bruising, Denies lymphadenopathy Past Medical History Past Medical History: Deep Vein Thrombosis (DVT), Fibromyalgia, Rheumatoid Arthritis (RA), Skin Disorder, Thyroid Disorder Additional Past Medical History / Comment(s): "LEAKY BLADDER" ,"POOR CIRCULATION", HX Wound rt foot 3rd toe, bunion on left foot, PAST RT HIP FX-NO SX DONE. History of Any Multi-Drug Resistant Organisms: MRSA Date of last positivie culture/infection: 02/17/18 MDRO Source:: Leg: lower right Past Surgical History: Appendectomy, Cholecystectomy, Tonsillectomy Additional Past Surgical History / Comment(s): Left foot wound debridement. Nodule removed from thyroid. sinus surgery. surgical excision and debridment of sacrum with wound VAC placement on 08/05/15 and sx done(flap) that developed pin hole leak -had 2nd sx to repair". Debridement wound care to right lower extremity wound on 08/21/15. Past Anesthesia/Blood Transfusion Reactions: No Reported Reaction Past Psychological History: No Psychological Hx Reported Smoking Status: Never smoker Past Alcohol Use History: None Reported Past Drug Use History: None Reported - Past Family History Mother Family Medical History: AFIB, Cancer Additional Family Medical History / Comment(s): Past away. skin cancer Father Family Medical History: Liver Disease, Rheumatoid Arthritis (RA) Additional Family Medical History / Comment(s): Leukemia. at age 72 of liver problem. Medications and Allergies Home Medications Medication Instructions Recorded Confirmed Type Hydrocodone/Acetaminophen 1 tab PO TID 08/26/17 07/24/19 History [Hydrocodon-Acetaminophn 10-325] Leflunomide [Arava] 20 mg PO DAILY 08/26/17 07/24/19 History Levothyroxine Sodium [Synthroid] 200 mcg PO DAILY 08/26/17 07/24/19 History Pregabalin [Lyrica] 100 mg PO BID 08/26/17 07/24/19 History fentaNYL 12MCG/HR PATCH [Duragesic 1 patch TRANSDERM Q72H 08/26/17 07/24/19 History 12MCG/HR] fentaNYL 25MCG/HR PATCH [Duragesic 1 patch TRANSDERM Q72H 08/26/17 07/24/19 History 25MCG/HR] Collagenase [Santyl] 1 applic TOPICAL DAILY 07/10/19 07/24/19 History Rivaroxaban [Xarelto] 20 mg PO W/BRKFST 07/10/19 07/24/19 History Cefuroxime Axetil [Ceftin] 500 mg PO BID #42 tab 07/13/19 07/24/19 Rx Allergies Allergy/AdvReac Type Severity Reaction Status Date / Time Penicillins Allergy Rash/Hives Verified 07/24/19 19:29 Physical Exam Vitals: Vital Signs Temp Pulse Resp BP Pulse Ox 07/25/19 13:53 90 14 110/64 95 07/25/19 13:30 89 18 111/63 96 07/25/19 12:00 97.8 F 85 18 111/73 98 07/25/19 07:55 98.1 F 88 18 100/66 100 07/25/19 04:30 89 17 97/60 98 07/25/19 03:30 87 17 103/62 97 07/25/19 02:00 89 16 124/77 97 07/25/19 00:00 89 16 102/62 07/24/19 23:30 90 18 99/61 96 07/24/19 23:00 93 18 103/64 95 07/24/19 22:30 93 18 98/66 07/24/19 22:00 96 20 119/63 99 07/24/19 21:30 93 18 110/69 91 L 07/24/19 21:00 101 H 16 103/67 94 L 07/24/19 20:30 93 16 111/79 98 07/24/19 20:00 92 16 111/79 96 07/24/19 19:30 96 16 07/24/19 19:00 92 16 115/69 96 07/24/19 18:30 104/66 07/24/19 18:29 65 20 104/66 97 07/24/19 18:00 104/66 07/24/19 17:33 99 07/24/19 17:29 20 98/59 100 07/24/19 17:16 98.8 F 100 20 98/59 100 - Constitutional General appearance: cooperative, currently uncomfortable in bed, obese - EENT Eyes: anicteric sclerae, PERRLA, normal appearance ENT: hearing grossly normal oral mucous membranes moist - Neck Neck: no lymphadenopathy, normal ROM, no other, no rigidity, no stridor, no thyromegaly - Respiratory Respiratory: bilateral: CTA, negative: diminished, dullness, rales, rhonchi - Cardiovascular Rhythm: regular Heart sounds: normal: S1, S2 Abnormal Heart Sounds: no systolic murmur, no diastolic murmur, no rub, no S3 Gallop, no S4 Gallop, no click, no other - Gastrointestinal General gastrointestinal: normal bowel sounds, soft - Integumentary Integumentary: Bilateral nonhealing lower extremity ulcers involving the anterior surface of the leg with serosanguineous discharge and erythematous base. Large open wound around 7-5 cm on the right buttock with surrounding erythema with active serosanguineous drainage also has 2 small wounds distantly. Patient has significant nodular deformity involving bilateral hands secondary to rheumatoid arthritis- Neurologic Neurologic: CNII-XII intact - Musculoskeletal Musculoskeletal: 4/5 power bilateral lower extremity - Psychiatric Psychiatric: A&O x's 3, appropriate affect Results CBC & Chem 7: 07/24/19 19:15 07/24/19 19:15 Labs: Abnormal Lab Results - Last 24 Hours (Table) 07/24/19 07/24/19 07/24/19 Range/Units 19:15 19:15 19:15 WBC 15.2 H (3.8-10.6) k/uL RBC 3.00 L (3.80-5.40) m/uL Hgb 7.9 L D (11.4-16.0) gm/dL Hct 26.1 L (34.0-46.0) % MCHC 30.4 L (31.0-37.0) g/dL RDW 17.3 H (11.5-15.5) % Plt Count 508 H (150-450) k/uL Neutrophils # 12.9 H (1.3-7.7) k/uL PT 13.2 H (9.0-12.0) sec INR 1.3 H (<1.2) APTT 36.2 H (22.0-30.0) sec Sodium 132 L (137-145) mmol/L BUN 29 H (7-17) mg/dL Total Protein 5.3 L (6.3-8.2) g/dL Albumin 2.5 L (3.5-5.0) g/dL Urine Appearance (Clear) Urine Protein (Negative) Ur Leukocyte Esterase (Negative) Urine WBC (0-5) /hpf Ur Squamous Epith Cells (0-4) /hpf Urine Bacteria (None) /hpf Urine Mucus (None) /hpf Urine Yeast (Budding) (None) /hpf 07/24/ Range/Units 20:10 WBC (3.8-10.6) k/uL RBC (3.80-5.40) m/uL Hgb (11.4-16.0) gm/dL Hct (34.0-46.0) % MCHC (31.0-37.0) g/dL RDW (11.5-15.5) % Plt Count (150-450) k/uL Neutrophils # (1.3-7.7) k/uL PT (9.0-12.0) sec INR (<1.2) APTT (22.0-30.0) sec Sodium (137-145) mmol/L BUN (7-17) mg/dL Total Protein (6.3-8.2) g/dL Albumin (3.5-5.0) g/dL Urine Appearance Cloudy H (Clear) Urine Protein Trace H (Negative) Ur Leukocyte Esterase Large H (Negative) Urine WBC 26 H (0-5) /hpf Ur Squamous Epith Cells 10 H (0-4) /hpf Urine Bacteria Rare H (None) /hpf Urine Mucus Rare H (None) /hpf Urine Yeast (Budding) Occasional H (None) /hpf Microbiology - Last 24 Hours (Table) 07/24/19 20:10 Urine Culture - Preliminary Urine,Voided Thrombosis Risk Factor Assmnt - DVT/VTE Prophylaxis DVT/VTE Prophylaxis: Pharmacologic Prophylaxis ordered Assessment and Plan Plan: 1. Generalized weakness likely secondary to sepsis and anemia continue Rocephin and vancomycin. Infectious disease consulted 2. Sepsis secondary to UTI with other possible source of infection includes the bilateral lower extremity ulcers and sacral wound for which patient completed oral antibiotics. Continue Rocephin IV 1 g daily with vancomycin 1750 mg with pharmacy to dose by mouth daily. Continue IV fluids at 75 mL per hour infectious disease consulted. Surgery consulted for possible debridement 3. Stage IV decubitus ulcer right buttocks: 7 x 5 CM. wound care consult. Was on wound VAC at home but it came off according to the patient Consult with Dr. Charles. Patient did receive meropenem during last visit as multiple organism including E. coli, Proteus and enterococcus grew during the last visit. Patient She also has history of MRSA and Pseudomonas. Wound consult for local wound care . Bone scan was negative for osteomyelitis but did have cellulitis on 07/12 2. Chronic lower extremity ulcers secondary to peripheral vascular disease. Wound care has been ordered by wound care team. Dr. Charles on consult. Patient normally follows with Dr. Medina in the wound healing Center. 3. Rheumatoid arthritis with chronic pain. Arava on hold. Continue fentanyl patch 37 g per hour every 72 hours, [place] 10 one every 6 hours, Lyrica 100 mg twice daily. 4. History of DVT. Over a year ago Continue Xarelto. Will hold if possible debridement 5. Hypothyroidism. Continue levothyroxine 200 g daily. 6. Chronic kidney disease stage II, stable. 7. Acute on chronic Anemia of chronic disease. Iron studies ordered hemoglobin has dropped from 10.6-7.8. Patient does have a history of upper GI bleeding from antral ulcers, gastritis and duodenitis for which she was admitted in January 2019. Protonix started at 40 mg daily. Hemoglobin every 6 fecal occult ordered 8. DVT prophylaxis. Xarelto. 9. GI prophylaxis. Protonix 40 mg daily
[2019-07-25 16:42] LABS: Anisocytosis Slight; Basophils % (A) 0 %; Eosinophils # (A) 0.4 k/uL (0-0.7); Eosinophils % (A) 4 %; HCT 27.1 % (34.0-46.0); HGB 7.9 gm/dL (11.4-16.0); Hypochromasia Marked; Lymphocytes # (A) 0.6 k/uL (1.0-4.8); Lymphocytes % (A) 6 %; MCH 25.9 pg (25.0-35.0); MCHC 29.3 g/dL (31.0-37.0); MCV 88.3 fL (80.0-100.0); Mean Platelet Volume 7.8; Monocytes # (A) 0.4 k/uL (0-1.0); Monocytes % (A) 4 %; Neutrophils # (A) 8.4 k/uL (1.3-7.7); Neutrophils % (A) 84 %; Platelet Count 439 k/uL (150-450); RBC 3.07 m/uL (3.80-5.40); RDW 17.4 % (11.5-15.5)
[2019-07-25] MEDS: HYDROcodone/APAP 10-325MG 1 EACH TAB PO SCH ×2 (17:52→21:31)
[2019-07-25] MEDS: SODIUM CHLORIDE 0.9% 1,000 ML IV SCH (21:28)
[2019-07-25] MEDS: PREGABALIN 100 MG CAP PO SCH (21:31)
[2019-07-25] MEDS: PANTOPRAZOLE 40 MG TABLET PO SCH (21:31)
[2019-07-25 23:25] LABS: Ferritin 95.9 ng/mL (10.0-291.0)
[2019-07-25 23:38] LABS: % Iron Saturation 2.5 (12.00-45.00)
[2019-07-25 23:56] LABS: Anisocytosis Slight; Basophils % (A) 0 %; Eosinophils # (A) 0.4 k/uL (0-0.7); Eosinophils % (A) 5 %; HGB 7.3 gm/dL (11.4-16.0); Hypochromasia Marked; Lymphocytes # (A) 0.7 k/uL (1.0-4.8); Lymphocytes % (A) 9 %; MCH 26.5 pg (25.0-35.0); MCHC 30.3 g/dL (31.0-37.0); MCV 87.4 fL (80.0-100.0); Mean Platelet Volume 7.5; Monocytes # (A) 0.4 k/uL (0-1.0); Monocytes % (A) 5 %; Neutrophils # (A) 6.2 k/uL (1.3-7.7); Neutrophils % (A) 80 %; Platelet Count 425 k/uL (150-450); Poikilocytosis Slight; RBC 2.75 m/uL (3.80-5.40); RDW 16.9 % (11.5-15.5); WBC 7.8 k/uL (3.8-10.6)
--- NOTE | 2019-07-26 00:50 | CONS ---
CONSULTATION DATE OF SERVICE: 07/25/2019. REASON FOR STAY: Bilateral lower extremity venous stasis ulcer and question of cellulitis. HISTORY OF PRESENT ILLNESS: The patient is a 69-year-old female who was brought into the ER at [facility] yesterday for evaluation of generalized weakness. The patient has been complaining of weakness. The pain has been progressively getting worse over the last few days. The patient also has bilateral lower extremity venous stasis ulcer currently being taken care of in the wound care center by Dr. Medina and visiting nurses. The patient did mention the local care has been more of a debriding cream to the leg wound area. The patient did have some dull aching pain intensity 3-4 out of 10 and no radiation with minimal surrounding redness. The patient did have some chills but denies any high-grade fever. With these symptoms, the patient has been evaluated by the ER physician. On arrival to the ER, patient has been afebrile. The patient white count was elevated to 15,000. Kidney function has been normal. UA was mildly positive. Blood cultures obtained which are currently pending. The patient has been started on vancomycin and Rocephin. Infectious disease was consulted for further recommendations regarding lower extremity wound and cellulitis. The patient also has a sacral wound which has been previously debrided by General Surgery. Current local wound care has been a wound VAC. The patient currently with no symptoms referable to sacral wound area. REVIEW OF SYSTEMS: Positive points have been mentioned in HPI. Rest of the systems are negative. PAST MEDICAL HISTORY: DVT, fibromyalgia, rheumatoid arthritis, hypothyroidism, lower extremity venous stasis ulcer and sacral pressure ulcer. PAST SURGICAL HISTORY: Appendectomy, cholecystectomy, tonsillectomy, debridement of the sacral wound as well as lower extremity wound. SOCIAL HISTORY: No history of smoking, drinking or drug use. FAMILY HISTORY: Mother with history of atrial fibrillation and skin cancer. Father with history of rheumatoid arthritis. ALLERGIES: PENICILLIN with no history of anaphylaxis. MEDICATION: Include the patient is currently on Reva, Rocephin 1 g daily. She is on fentanyl, Synthroid, morphine sulfate, vancomycin, , Lyrica, Protonix. PHYSICAL EXAMINATION: Blood pressure is 96/58 with a pulse of 95, temperature 98.5. She is 92% on room air. General description is an elderly female lying in bed in no distress. No tachypnea or accessory muscles for respiration use. HEENT: Shows slight pallor. No scleral icterus. Oral mucosa membranes are dry. No pharyngeal erythema or thrush. NECK: Trachea central. No thyromegaly. LUNGS: Unlabored breathing with decreased breath sounds in the base, with no wheeze or crackles. HEART: S1, S2. Regular rate and rhythm. ABDOMEN: Soft, no tenderness. Bilateral lower extremity did have wounds with slough tissue. Minimal surrounding erythema. Slight painful at the time of dressing changes. No foul smelling. EXTREMITIES are no edema of the feet. NEUROLOGICAL: Patient is awake, alert, oriented x3. Mood and affect normal. LABS: Hemoglobin 7.8, white count 10, admission white count was 15.2 with a BUN of 29, creatinine 0.91. Urine was cloudy with large leukocyte esterases, 26 WBC with culture currently pending. DIAGNOSTIC IMPRESSION/PLAN: 1. The patient admitted to the hospital with generalized weakness, no energy, which is likely multifactorial in this patient who does have a component of bilateral lower extremity wound with concern for secondary cellulitis likely from a gram-positive skin zaira. This patient did have a previous history of MRSA infection, could be related to that. 2. The patient also have a positive UA with minimally underlying symptomatic urinary tract infection not entirely excluded. 3. PENICILLIN ALLERGY limiting the number of antibiotics safe to use. PLAN: 1. Local wound care to bilateral lower extremity wound with Santyl followed by moist dressing to be changed daily. 2. Local wound care to the sacral wound with the wound VAC that can be resumed. 3. Vancomycin, pharmacy to dose target of 15, for lower extremity cellulitis while monitoring kidney function closely. 4. Rocephin 1 gram daily for further urinary tract infection. 5. We will follow up on clinical condition and culture to further adjust medication if needed. Thank you for this consultation. We will follow this patient with you. MMODL / IJN: [id number] /
[2019-07-26] MEDS: VANCOMYCIN 1,750 MG in SODIUM CHLORIDE 0.9% 500 ML 500 ML IVPB SCH ×2 (03:41→19:48)
[2019-07-26] MEDS: LEVOTHYROXINE 100 MCG TAB PO SCH (06:36)
[2019-07-26] MEDS: SODIUM CHLORIDE 0.9% 1,000 ML IV SCH ×2 (06:37→19:05)
[2019-07-26] MEDS: PANTOPRAZOLE 40 MG TABLET PO SCH (07:07)
[2019-07-26] MEDS: RIVAROXABAN 20 MG TAB PO SCH (07:07)
[2019-07-26] MEDS: PREGABALIN 100 MG CAP PO SCH ×2 (07:07→21:45)
[2019-07-26] MEDS: COLLAGENASE 250 UNIT/GM OINTMENT 30 GM TUBE TOPICAL SCH ×2 (08:44→15:28)
[2019-07-26] MEDS: HYDROcodone/APAP 10-325MG 1 EACH TAB PO SCH ×3 (08:45→21:45)
[2019-07-26 09:01] LABS: ALT 13 U/L (4-34); AST 25 U/L (14-36); African American GFR (CKD) >90 (>60 ml/min/1.73 sqM); Albumin 2.2 g/dL (3.5-5.0); Alkaline Phosphatase 73 U/L (38-126); Anion Gap 6 mmol/L; Blood Urea Nitrogen 19 mg/dL (7-17); Calcium 8.5 mg/dL (8.4-10.2); Carbon Dioxide 24 mmol/L (22-30); Chloride 107 mmol/L (98-107); Glucose 80 mg/dL (74-99); Non-African American GFR(CKD) 80 (>60 ml/min/1.73 sqM); Potassium 3.8 mmol/L (3.5-5.1); Sodium 137 mmol/L (137-145); Total Bilirubin 0.6 mg/dL (0.2-1.3); Total Protein 4.7 g/dL (6.3-8.2)
--- NOTE | 2019-07-26 11:24 | P.PN ---
Subjective Progress Note Date: 07/26/19 This is a 69-year-old female patient with past medical history of rheumatoid arthritis, hypothyroidism, DVT, fibromyalgia, multiple decubitus ulcer, MRSA infection, previous admission for GI bleed secondary to antral ulcer, gastritis and duodenitis requiring blood transfusion, hypothyroidism, ch ronic kidney disease stage II. Patient can stand with the help of walker and can prevent out of her bed but is a currently bedbound and has minimal mobility. She has chronic wounds on bilateral lower extremity and a decub ulcer in the sacrum. Patient was last seen on July 11 for a large wound on her right posterior thigh that worsened very quickly which was debrided by Dr. Doss and was sent home on oral antibiotics and for wound VAC. Patient sees [facility] under the care of Dr. Medina but developed a new wound possible skin tear on her right buttocks that was not there on her last Wound Center evaluation. Prednisone was tapered during that visit. Patient comes in today with increased weakness and inability to stand. Patient states that she always have an infection when she feels this. On assessment of vital patient has a temp of 97.8 pulse 85 blood pressure 111/73 saturating 98% on room air. Blood work is positive for a WBC of 11.2 and hemoglobin dropped to 7.9 platelets 505 creatinine 0.9 BUN 29 urine drug screen does suggest a large leukocyte Estrace 26 WBC concerning for UTI. Patient initiated on Rocephin and vancomycin in the ER. Infectious disease was consulted for further evaluation. 07/26/2019 patient had a bedside feels better than yesterday afebrile 98.2 pulse 87 blood pressure 118/75 no episodes of fever overnight. Labs suggestive WBC is 7.8 hemoglobins dropped to 7.3 platelet count 425 creatinine stable at 0.7 BUN improved from 29-19 today UA is positive for gram-negative bacilli final cultures are pending blood cultures have been negative so far. Continue with Rocephin and vancomycin for UTI and cellulitis of the lower extremities. Continue Santyl with moist dressing in the lower extremities. Iron panel suggest iron deficiency. Patient has history of antral ulcers. GI is consulted. Patient does complain of bloating and epigastric tenderness. Review of Systems Constitutional: Denies chills, Denies fever, endorses lethargy and weakness Eyes: denies decreased vision, denies diplopia, denies discharge, denies pain Ears: deny: decreased hearing Ears, nose, mouth and throat: Denies dental pain, Denies headache, Denies nasal discharge, Denies nose pain Cardiovascular: Denies chest pain, Denies decreased exercise tolerance, Denies edema, Denies high blood pressure, Denies irregular heart beat, Denies palpitations, Denies paroxysmal nocturnal dyspnea, Denies rapid heart beat, Denies shortness of breath Respiratory: Denies congestion, Denies cough, Denies cough with sputum, Denies dyspnea, Denies home oxygen, Denies wheezing Gastrointestinal: Denies abdominal pain, Denies change in bowel habits, Denies coffee ground emesis, Denies early satiety, Denies excessive gas, Denies heartburn, Denies hematemesis, Denies hematochezia, Denies loss of appetite, Denies nausea, Denies vomiting Genitourinary: Denies dysuria, Denies flank pain, Denies kidney stones, Denies menorrhagia, Denies urgency, Denies urinary frequency Musculoskeletal: Denies gait dysfunction, Denies limitation of motion, Denies morning stiffness, Denies muscle cramps Integumentary: Endorses bilateral lower extremity nonhealing wound, Denies brittle nails, Denies change in hair/nails, Denies darkening of skin Neurological: Denies balance difficulties, Denies change in speech, Denies double vision, Denies gait dysfunction, Denies loss of vision, Denies motor dist urbance, Denies numbness, Denies paralysis, Denies paresthesias, Denies seizures Psychiatric: Denies anxiety, Denies depression Endocrine: Denies excessive sweating, Denies excessive thirst, Denies high blood sugars, Denies palpitations Hematologic/Lymphatic: Denies easy bruising, Denies lymphadenopathy Objective - Vital Signs Vital signs: Vital Signs Temp 98.2 F 07/26/19 06:11 Pulse 87 07/26/19 06:11 Resp 18 07/26/19 06:11 BP 118/75 07/26/19 06:11 Pulse Ox 96 07/26/19 06:11 Intake & Output 07/25/19 07/26/19 07/26/19 18:59 06:59 18:59 Output Total 200 Balance -200 Weight 104.326 kg Output: Urine 200 Other: Voiding Method Incontinent Incontinent # Voids 1 # Bowel Movements 1 - Exam - Constitutional General appearance: cooperative, currently uncomfortable in bed, obese - EENT Eyes: anicteric sclerae, PERRLA, normal appearance ENT: hearing grossly normal oral mucous membranes moist - Neck Neck: no lymphadenopathy, normal ROM, no other, no rigidity, no stridor, no thyromegaly - Respiratory Respiratory: bilateral: CTA, negative: diminished, dullness, rales, rhonchi - Cardiovascular Rhythm: regular Heart sounds: normal: S1, S2 Abnormal Heart Sounds: no systolic murmur, no diastolic murmur, no rub, no S3 G allop, no S4 Gallop, no click, no other - Gastrointestinal General gastrointestinal: normal bowel sounds, soft - Integumentary Integumentary: Bilateral nonhealing lower extremity ulcers involving the anterior surface of the leg with serosanguineous discharge and erythematous base. Large open wound stage IV around 7-5 cm on the right buttock with surrounding erythema with active serosanguineous drainage also has 2 small wounds distantly. Patient has significant nodular deformity involving bilateral hands secondary to rheumatoid arthritis- Neurologic Neurologic: CNII-XII intact - Musculoskeletal Musculoskeletal: 4/5 power bilateral lower extremity - Psychiatric Psychiatric: A&O x's 3, appropriate affect - Labs CBC & Chem 7: 07/25/19 23:47 07/26/19 07:58 Labs: Abnormal Lab Results - Last 24 Hours (Table) 07/24/19 07/25/19 07/25/19 Range/Units 19:15 16:11 23:47 RBC 3.07 L 2.75 L (3.80-5.40) m/uL Hgb 7.9 L 7.3 L (11.4-16.0) gm/dL Hct 27.1 L 24.0 L (34.0-46.0) % MCHC 29.3 L 30.3 L (31.0-37.0) g/dL RDW 17.4 H 16.9 H (11.5-15.5) % Neutrophils # 8.4 H (1.3-7.7) k/uL Lymphocytes # 0.6 L 0.7 L (1.0-4.8) k/uL BUN (7-17) mg/dL Iron 6 L (50-170) ug/dL % Saturation 2.50 L (12.00-45.00) Total Protein (6.3-8.2) g/dL Albumin (3.5-5.0) g/dL 07/26/19 Range/Units 07:58 RBC (3.80-5.40) m/uL Hgb (11.4-16.0) gm/dL Hct (34.0-46.0) % MCHC (31.0-37.0) g/dL RDW (11.5-15.5) % Neutrophils # (1.3-7.7) k/uL Lymphocytes # (1.0-4.8) k/uL BUN 19 H (7-17) mg/dL Iron (50-170) ug/dL % Saturation (12.00-45.00) Total Protein 4.7 L (6.3-8.2) g/dL Albumin 2.2 L (3.5-5.0) g/dL Microbiology - Last 24 Hours (Table) 07/24/19 20:10 Urine Culture - Preliminary Urine,Voided Gram Neg Bacilli 07/24/19 19:15 Blood Culture - Preliminary Blood No Growth after 24 hours Assessment and Plan Plan: 1. Generalized weakness likely secondary to sepsis and anemia continue Rocephin and vancomycin. Infectious disease consulted 2. Sepsis secondary to UTI with other possible source of infection includes the bilateral lower extremity ulcers. sacral wound was evaluated by infectious disease, no further debridement needed. Wound VAC would be continued Continue Rocephin IV 1 g daily with vancomycin 1750 mg with pharmacy to dose by mouth daily. Continue IV fluids at 75 mL per hour infectious disease consulted. 3. Stage IV decubitus ulcer right buttocks: 7 x 5 CM. wound care consult. Was on wound VAC at home but it came off according to the patient Consult with Dr. Charles. Patient did receive meropenem during last visit as multiple organism including E. coli, Proteus and enterococcus grew during the last visit. Patient She also has history of MRSA and Pseudomonas. Wound consult for local wound care . Bone scan was negative for osteomyelitis but did have cellulitis on 07/12 2. Cellulitis with Chronic lower extremity ulcers secondary to peripheral vascular disease. Wound care has been ordered by wound care team. Dr. Charles on consult. Patient normally follows with Dr. Medina in the wound healing Center. Continue vancomycin per ID recommendation 3. Rheumatoid arthritis with chronic pain. Arava on hold. Continue fentanyl patch 37 g per hour every 72 hours, [place] 10 one every 6 hours, Lyrica 100 mg twice daily. 4. History of DVT. Over a year ago Continue Xarelto. Will hold if possible debridement 5. Hypothyroidism. Continue levothyroxine 200 g daily. 6. Chronic kidney disease stage II, stable. 7. Acute on chronic Anemia of chronic disease. Iron studies ordered hemoglobin has dropped from 10.6 to 7.8 on admission, it is 7.3 Patient does have a history of upper GI bleeding from antral ulcers, gastritis and duodenitis for which she was admitted in January 2019. Protonix started at 40 mg daily. Hemoglobin every 6 fecal occult ordered GI consulted today patient is also on Xarelto. 8. DVT prophylaxis. Xarelto. 9. GI prophylaxis. Protonix 40 mg daily
[2019-07-26 11:52] VITALS: BMI 34.0
--- NOTE | 2019-07-26 15:17 | P.PN ---
Subjective Progress Note Date: 07/26/19 CHIEF COMPLAINT: Sacral ulcer HISTORY OF PRESENT ILLNESS: The patient is a 69-year-old female who has chronic buttock stage IV ulcer. No reports of pain. ROS: No reports of nausea and vomiting. No fevers or chills. No new chest pain. No productive sputum PHYSICAL EXAM: VITAL SIGNS: Reviewed CONSTITUTIONAL: Well developed and in no acute distress. EYES: Conjuctivae without sclera icterus. Extraocular movements grossly intact. HEAD, EARS, NOSE, THROAT: Moist buccal mucosa. Head is atraumatic, normocephalic. Hears conversational speech. No nasal drainage. NECK: Supple. No thyroidomegaly. RESPIRATORY: Non-labored respirations and equal bilateral excursions. CARDIOVASCULAR: Palpable 2+ radial pulses. ABDOMEN: Soft. Nontender. Non-distended. MUSCULOSKELETAL: No gross deformity of the lower extremities noted. No clubbing. No cyanosis. SKIN: Good skin turgor. Well perfused. History of stage IV ulcer. NEUROLOGIC: Cranial nerves I through XII grossly intact. No focal or laterali zing signs. PSYCH: Appropriate affect. Alert and oriented to person, place and time. CLINICAL LABS: White blood cell count normal ASSESSMENT: 1. Stage IV ulcer, buttock, clean based PLAN: 1. Await wound vac 2. Agree with infectious disease consultation. 3. Will sign off. Objective - Vital Signs Vital signs: Vital Signs Temp 98.1 F 07/26/19 14:08 Pulse 83 07/26/19 14:08 Resp 15 07/26/19 14:08 BP 102/70 07/26/19 14:08 Pulse Ox 92 L 07/26/19 14:08 Intake & Output 07/25/19 07/26/19 07/26/19 18:59 06:59 18:59 Output Total 200 Balance -200 Weight 104.326 kg 104.326 kg Output: Urine 200 Other: Voiding Method Incontinent Incontinent # Voids 1 # Bowel Movements 1 - Labs CBC & Chem 7: 07/25/19 23:47 07/26/19 07:58 Labs: Abnormal Lab Results - Last 24 Hours (Table) 07/24/19 07/25/19 07/25/19 Range/Units 19:15 16:11 23:47 RBC 3.07 L 2.75 L (3.80-5.40) m/uL Hgb 7.9 L 7.3 L (11.4-16.0) gm/dL Hct 27.1 L 24.0 L (34.0-46.0) % MCHC 29.3 L 30.3 L (31.0-37.0) g/dL RDW 17.4 H 16.9 H (11.5-15.5) % Neutrophils # 8.4 H (1.3-7.7) k/uL Lymphocytes # 0.6 L 0.7 L (1.0-4.8) k/uL BUN (7-17) mg/dL Iron 6 L (50-170) ug/dL % Saturation 2.50 L (12.00-45.00) Total Protein (6.3-8.2) g/dL Albumin (3.5-5.0) g/dL 07/26/19 Range/Units 07:58 RBC (3.80-5.40) m/uL Hgb (11.4-16.0) gm/dL Hct (34.0-46.0) % MCHC (31.0-37.0) g/dL RDW (11.5-15.5) % Neutrophils # (1.3-7.7) k/uL Lymphocytes # (1.0-4.8) k/uL BUN 19 H (7-17) mg/dL Iron (50-170) ug/dL % Saturation (12.00-45.00) Total Protein 4.7 L (6.3-8.2) g/dL Albumin 2.2 L (3.5-5.0) g/dL Microbiology - Last 24 Hours (Table) 07/26/19 21:30 Anaerobic Culture - Preliminary Leg - Right 07/25/19 23:26 Wound Culture - Preliminary Leg - Right 07/25/19 21:30 Wound Culture - Preliminary Leg - Left 07/25/19 21:30 Anaerobic Culture - Preliminary Leg - Left 07/25/19 21:30 Anaerobic Culture - Preliminary Buttock 07/25/19 21:30 Wound Culture - Preliminary Buttock 07/24/19 20:10 Urine Culture - Preliminary Urine,Voided Gram Neg Bacilli 07/24/19 19:15 Blood Culture - Preliminary Blood No Growth after 24 hours Assessment and Plan (1) Stage 4 pressure ulcer Current Visit: Yes Status: Acute Code(s): L89.94 - PRESSURE ULCER OF UNSPECIFIED SITE, STAGE 4 SNOMED Code(s): 138366124 (2) Pressure ulcer stage III Current Visit: Yes Status: Chronic Code(s): L89.93 - PRESSURE ULCER OF UNSPECIFIED SITE, STAGE 3 SNOMED Code(s): 387541137
--- NOTE | 2019-07-26 22:59 | P.CONS ---
History of Present Illness - Reason for Consult Consult date: 07/26/19 Anemia Requesting physician: Janes Wilkins - Chief Complaint Weakness - History of Present Illness 72-year-old female with multiple medical comorbidities including rheumatoid arthritis, hypothyroidism, DVT, fibromyalgia, antral ulcers, chronic kidney disease and decubitus ulcers who presented to the hospital due to increased weakness and difficulty standing. The patient is currently being assessed for the decubitus ulcer. Plan is for a wound VAC and infectious disease consults. GI was consult. For evaluation of a slight drop in patient's hemoglobin from 7.9-7.3. The patient signs or symptoms of GI bleeding. No nausea, vomiting or hematemesis. No change in bowel habits. Patient does report some bloating and mild epigastric tenderness. She was previously evaluated with EGD and 01/2019 with findings of gastritis, duodenitis and antral ulcers. Review of Systems REVIEW OF SYSTEMS: CONSTITUTIONAL: Denies any fevers, chills, weight change or fatigue. CARDIOVASCULAR: Denies any chest pain, palpitations high or low blood pressures RESPIRATORY: Denies any hemoptysis or cough. GENITOURINARY: No dysuria or hematuria. MUSCULOSKELETAL: No focal weakness reported. SKIN: Denies any jaundice or pallor, does have a history of decubitus ulcers treated at the [facility]. PSYCHIATRIC: Denies any depression or anxiety. NEUROLOGY: Denies headache, denies any new focal deficits. EARS/NOSE/THROAT: No recent hearing change, congestion, nasal discharge or sore throat. EYES: No pain in eyes, discharge or change in vision. GASTROINTESTINAL: As per HPI. Past Medical History Past Medical History: Deep Vein Thrombosis (DVT), Fibromyalgia, Rheumatoid Arthr itis (RA), Skin Disorder, Thyroid Disorder Additional Past Medical History / Comment(s): "LEAKY BLADDER" ,"POOR CIRCULATION", HX Wound rt foot 3rd toe, bunion on left foot, PAST RT HIP FX-NO SX DONE. History of Any Multi-Drug Resistant Organisms: MRSA Year Discovered:: 02/17/18 MDRO Source:: Leg: lower right Past Surgical History: Appendectomy, Cholecystectomy, Tonsillectomy Additional Past Surgical History / Comment(s): Left foot wound debridement. Nodule removed from thyroid. sinus surgery. surgical excision and debridment of sacrum with wound VAC placement on 08/05/15 and sx done(flap) that developed pin hole leak -had 2nd sx to repair". Debridement wound care to right lower extremity wound on 08/21/15. Past Anesthesia/Blood Transfusion Reactions: No Reported Reaction Past Psychological History: No Psychological Hx Reported Additional Psychological History / Comment(s): Patient lives in [facility] in [place], she lives in handicap apartment. Nurse comes to do wound care: [facility] home care. Patient is a lifelong nonsmoker. She denies any medical mar ijuana, marijuana, street drug or alcohol use. 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 No recent travel. Smoking Status: Never smoker Past Alcohol Use History: None Reported Additional Past Alcohol Use History / Comment(s): Patient is a lifelong nonsmoker. She uses a walker at home and takes care of herself. She stand pivots to transfer. Past Drug Use History: None Reported - Past Family History Mother Family Medical History: AFIB, Cancer Additional Family Medical History / Comment(s): Past away. skin cancer Father Family Medical History: Liver Disease, Rheumatoid Arthritis (RA) Additional Family Medical History / Comment(s): Leukemia. at age 72 of liver problem. Medications and Allergies Home Medications Medication Instructions Recorded Confirmed Type Hydrocodone/Acetaminophen 1 tab PO TID 08/26/17 07/24/19 History [Hydrocodon-Acetaminophn 10-325] Leflunomide [Arava] 20 mg PO DAILY 08/26/17 07/24/19 History Levothyroxine Sodium [Synthroid] 200 mcg PO DAILY 08/26/17 07/24/19 History Pregabalin [Lyrica] 100 mg PO BID 08/26/17 07/24/19 History fentaNYL 12MCG/HR PATCH [Duragesic 1 patch TRANSDERM Q72H 08/26/17 07/24/19 History 12MCG/HR] fentaNYL 25MCG/HR PATCH [Duragesic 1 patch TRANSDERM Q72H 08/26/17 07/24/19 History 25MCG/HR] Collagenase [Santyl] 1 applic TOPICAL DAILY 07/10/19 07/24/19 History Rivaroxaban [Xarelto] 20 mg PO W/BRKFST 07/10/19 07/24/19 History Cefuroxime Axetil [Ceftin] 500 mg PO BID #42 tab 07/13/19 07/24/19 Rx Allergies Allergy/AdvReac Type Severity Reaction Status Date / Time Penicillins Allergy Rash/Hives Verified 07/24/19 19:29 Physical Exam Vitals: Vital Signs Temp Pulse Pulse Resp BP BP BP 07/26/19 06:11 98.2 F 87 18 118/75 07/25/19 20:00 98.5 F 95 20 96/58 96/58 07/25/19 18:52 97.9 F 90 16 127/71 07/25/19 17:52 16 07/25/19 16:00 91 16 109/64 Pulse Ox 07/26/19 06:11 96 07/25/19 20:00 92 L 07/25/19 18:52 95 07/25/19 17:52 95 07/25/19 16:00 94 L Intake and Output 07/25/19 07/26/19 07/26/19 22:59 06:59 14:59 Output Total 200 Balance -200 Output: Urine 200 Other: Voiding Method Incontinent Incontinent # Voids 1 # Bowel Movements 1 1 Weight 104.326 kg 104.326 kg On physical examination, patient appears comfortable in no apparent distress. HEAD: Normocephalic, atraumatic. EYES: No scleral icterus. No conjunctival injection. MOUTH: No lesions, tongue midline. NECK: Trachea midline, no gross abnormalities. CHEST: Clear to auscultation with no wheezing or rhonchi appreciated. HEART: S1-S2 appreciated. ABDOMEN: Soft, obese. Bowel sounds are positive. No organomegaly. No guarding or rigidity. EXTREMITIES: No pedal edema. SKIN: No rashes, no jaundice, decubitus ulcer. NEUROLOGIC: Alert and oriented x3. No focal deficits. Results CBC & Chem 7: 07/25/19 23:47 07/26/19 07:58 Labs: Abnormal Lab Results - Last 24 Hours (Table) 07/24/19 07/25/19 07/25/19 Range/Units 19:15 16:11 23:47 RBC 3.07 L 2.75 L (3.80-5.40) m/uL Hgb 7.9 L 7.3 L (11.4-16.0) gm/dL Hct 27.1 L 24.0 L (34.0-46.0) % MCHC 29.3 L 30.3 L (31.0-37.0) g/dL RDW 17.4 H 16.9 H (11.5-15.5) % Neutrophils # 8.4 H (1.3-7.7) k/uL Lymphocytes # 0.6 L 0.7 L (1.0-4.8) k/uL BUN (7-17) mg/dL Iron 6 L (50-170) ug/dL % Saturation 2.50 L (12.00-45.00) Total Protein (6.3-8.2) g/dL Albumin (3.5-5.0) g/dL 07/26/19 Range/Units 07:58 RBC (3.80-5.40) m/uL Hgb (11.4-16.0) gm/dL Hct (34.0-46.0) % MCHC (31.0-37.0) g/dL RDW (11.5-15.5) % Neutrophils # (1.3-7.7) k/uL Lymphocytes # (1.0-4.8) k/uL BUN 19 H (7-17) mg/dL Iron (50-170) ug/dL % Saturation (12.00-45.00) Total Protein 4.7 L (6.3-8.2) g/dL Albumin 2.2 L (3.5-5.0) g/dL Microbiology - Last 24 Hours (Table) 07/26/19 21:30 Anaerobic Culture - Preliminary Leg - Right 07/25/19 23:26 Wound Culture - Preliminary Leg - Right 07/25/19 21:30 Wound Culture - Preliminary Leg - Left 07/25/19 21:30 Anaerobic Culture - Preliminary Leg - Left 07/25/19 21:30 Anaerobic Culture - Preliminary Buttock 07/25/19 21:30 Wound Culture - Preliminary Buttock 07/24/19 20:10 Urine Culture - Preliminary Urine,Voided Gram Neg Bacilli 07/24/19 19:15 Blood Culture - Preliminary Blood No Growth after 24 hours Assessment and Plan (1) Anemia associated with acute blood loss Narrative/Plan: 69-year-old female with multiple medical comorbidities presenting for evaluation of weakness and being treated for decubitus ulcer. The patient has a known history of peptic ulcer disease found in 01/2018 at which time EGD showed esophagitis, duodenitis and antral ulcers. Patient denies any signs or symptoms of GI bleeding. Anemia is likely factorial secondary to chronic disease is, patient is also, and will plan for EGD to rule out further bleeding from previously seen ulcers. Current Visit: Yes Status: Acute Code(s): D62 - ACUTE POSTHEMORRHAGIC ANEMIA SNOMED Code(s): 152580711 Plan: Supportive care Okay for diet Continue monitor hemoglobin and transfuse as needed Continue Protonix therapy Iron studies consistent with deficiency, would recommend supplementation Plan for EGD for evaluation recently noted ulcers, to rule out bleed Thank you for allowing us to participate in the care of this patient we will continue to follow
[2019-07-27] MEDS: LEVOTHYROXINE 100 MCG TAB PO SCH (05:58)
[2019-07-27] MEDS: COLLAGENASE 250 UNIT/GM OINTMENT 30 GM TUBE TOPICAL SCH ×2 (07:01→07:42)
[2019-07-27] MEDS: PANTOPRAZOLE 40 MG TABLET PO SCH (07:02)
[2019-07-27] MEDS: PREGABALIN 100 MG CAP PO SCH ×2 (07:02→20:39)
[2019-07-27] MEDS: HYDROcodone/APAP 10-325MG 1 EACH TAB PO SCH ×4 (07:02→21:59)
[2019-07-27] MEDS: SODIUM CHLORIDE 0.9% 1,000 ML IV SCH ×2 (07:41→22:06)
--- NOTE | 2019-07-27 08:17 | PN ---
PROGRESS NOTE DATE OF SERVICE: 07/26/2019 REASON FOR FOLLOWUP: 1. Bilateral lower extremity wound cellulitis. 2. Sacral pressure ulcer. 3. Urinary tract infection. INTERVAL HISTORY: The patient is currently afebrile. She has been feeling better from yesterday. Denies having any chest pain, shortness of breath or cough. No nausea, no vomiting. No abdominal pain or any worsening pain to the leg area. PHYSICAL EXAMINATION: On examination, blood pressure 102/70 with the pulse of 83, temperature 98.1. She is 92% on room air. General description is an elderly female lying in bed in no distress. RESPIRATORY SYSTEM: Unlabored breathing, clear to auscultation anteriorly. HEART S1, S2. Regular rate and rhythm. ABDOMEN: Soft, no tenderness. Legs were currently dressed up with no obvious drainage on the dressing. Sacral wound with no slough tissue. LABS: Hemoglobin 7.3, white count 7.8, BUN of 19, creatinine 0.76. Cultures currently pending. DIAGNOSTIC IMPRESSION AND PLAN: 1. Patient admitted to the hospital with generalized weakness, which is likely multifactorial in this patient who did have bilateral lower extremity venous stasis ulcers and secondary cellulitis. Local care to continue with Santyl. Patient is covered with Vancomycin while waiting for the culture to finalize. 2. Gram-negative urinary tract infection, covered with Rocephin to continue while waiting for the culture to finalize. 3. Sacral wound, no secondary cellulitis. Local care with wound VAC. Continue with supportive care. MMODL / IJN: [id number] /
[2019-07-27 09:17] LABS: Anisocytosis Slight; HCT 27.2 % (34.0-46.0); HGB 8.1 gm/dL (11.4-16.0); Hypochromasia Marked; MCH 26.6 pg (25.0-35.0); MCHC 29.6 g/dL (31.0-37.0); MCV 89.9 fL (80.0-100.0); Mean Platelet Volume 8.9; Platelet Count 517 k/uL (150-450); Poikilocytosis Slight; RBC 3.03 m/uL (3.80-5.40); WBC 7.8 k/uL (3.8-10.6)
[2019-07-27] MEDS ORDERED: PROPOFOL 10 MG/ML 20 ML VIAL IV ONE (10:16)
[2019-07-27] MEDS ORDERED: LIDOCAINE 1% INJ 10MG/ML (20 ML MDV) ONE (10:16)
[2019-07-27] MEDS ORDERED: SODIUM CHLORIDE 0.9% 500 ML 500 ML IV ONE ×3 (10:18→12:47)
--- NOTE | 2019-07-27 10:40 | P.PCN ---
Date of Procedure: 07/27/19 Description of Procedure: BRIEF HISTORY: 72-year-old female with multiple medical comorbidities including rheumatoid arthritis, hypothyroidism, DVT, fibromyalgia, antral ulcers, chronic kidney disease and decubitus ulcers who presented to the hospital due to increased weakness and difficulty standing. The patient is currently being assessed for the decubitus ulcer. Plan is for a wound VAC and infectious disease consults. GI was consult. For evaluation of a slight drop in patient's hemoglobin from 7.9-7.3. The patient signs or symptoms of GI bleeding. No nausea, vomiting or hematemesis. No change in bowel habits. Patient does report some bloating and mild epigastric tenderness. She was previously evaluated with EGD and 01/2019 with findings of gastritis, duodenitis and antral ulcers. PROCEDURE PERFORMED: Esophagogastroduodenoscopy with biopsy. PREOPERATIVE DIAGNOSIS: Anemia, history of antral ulcers. ESTIMATED BLOOD LOSS: Minimal. IV sedation per anesthesia. PROCEDURE: After informed consent was obtained, the patient was brought into the endoscopy unit. IV sedation was administered by Anesthesia under continuous monitoring. Initially the Olympus GIF-190 video endoscope was inserted into the mouth. Esophagus intubated without any difficulty. It was gradually advanced into the stomach and duodenum and carefully examined. The bulb and the second part of the duodenum appeared normal. The scope at this time was withdrawn to the stomach, adequately insufflated with air, and upon careful examination, mucosa of the antrum, body, cardia and the fundus appeared grossly normal except for a 5 mm cratered nonbleeding antral ulcer without any high risk stigmata for bleeding which was biopsied. The scope was then withdrawn into the esophagus. The GE junction was located at 37 cm from the incisors. The esophagus appeared normal. There were no erosions or ulcerations seen and the patient tolerated the procedure well. IMPRESSION: 1. Nonbleeding antral ulcer, biopsied. 2. No active bleeding or old blood noted on EGD. RECOMMENDATIONS: The findings of this examination were discussed with the patient. Okay to resume diet. Patient should remain on Protonix 40 mg twice daily. Await pathology from biopsies. No plans for further endoscopy at this time. Patient can follow-up in the outpatient setting for colonoscopy after discharge.
[2019-07-27] MEDS ORDERED: VANCOMYCIN TROUGH DUE 1 EACH MISC MISCELLANE ONE (11:00)
[2019-07-27] MEDS: RIVAROXABAN 20 MG TAB PO SCH (11:14)
[2019-07-27] MEDS: VANCOMYCIN 1,750 MG in SODIUM CHLORIDE 0.9% 500 ML 500 ML IVPB SCH (11:42)
--- NOTE | 2019-07-27 13:37 | P.PN ---
Subjective Progress Note Date: 07/27/19 This is a 69-year-old female patient with past medical history of rheumatoid arthritis, hypothyroidism, DVT, fibromyalgia, multiple decubitus ulcer, MRSA infection, previous admission for GI bleed secondary to antral ulcer, gastritis and duodenitis requiring blood transfusion, hypothyroidism, ch ronic kidney disease stage II. Patient can stand with the help of walker and can prevent out of her bed but is a currently bedbound and has minimal mobility. She has chronic wounds on bilateral lower extremity and a decub ulcer in the sacrum. Patient was last seen on July 11 for a large wound on her right posterior thigh that worsened very quickly which was debrided by Dr. Doss and was sent home on oral antibiotics and for wound VAC. [facility] under the care of Dr. Medina but developed a new wound possible skin tear on her right buttocks that was not there on her last Wound Center evaluation. Prednisone was tapered during that visit. Patient comes in today with increased weakness and inability to stand. Patient states that she always have an infection when she feels this. On assessment of vital patient has a temp of 97.8 pulse 85 blood pressure 111/73 saturating 98% on room air. Blood work is positive for a WBC of 11.2 and hemoglobin dropped to 7.9 platelets 505 creatinine 0.9 BUN 29 urine drug screen does suggest a large leukocyte Estrace 26 WBC concerning for UTI. Patient initiated on Rocephin and vancomycin in the ER. Infectious disease was consulted for further evaluation. 07/26/2019 patient had a bedside feels better than yesterday afebrile 98.2 pulse 87 blood pressure 118/75 no episodes of fever overnight. Labs suggestive WBC is 7.8 hemoglobins dropped to 7.3 platelet count 425 creatinine stable at 0.7 BUN improved from 29-19 today UA is positive for gram-negative bacilli final cultures are pending blood cultures have been negative so far. Continue with Rocephin and vancomycin for UTI and cellulitis of the lower extremities. Continue Santyl with moist dressing in the lower extremities. Iron panel suggest iron deficiency. Patient has history of antral ulcers. GI is consulted. Patient does complain of bloating and epigastric tenderness. 07/27: Patient was seen this morning prior to her EGD. EGD did show nonbleeding antral ulcer biopsied and no active bleeding or old blood noted. Recommendations to resume diet and continue Protonix with follow-up in the office, no further follow-up is required with GI. Hemoglobin is stable today at 8.1. She has been afebrile, heart rate 89, blood pressure 94/55, pulse ox 93% on room air. Patient denies having any chest pain. She states her weakness is a little bit better. She does complaining of legs feeling sore. Dr. Rangel is following with plan to continue Santyl and vancomycin. Patient is also on Rocephin for UTI. Urine culture is now found to be positive for Pseudomonas. Wound cultures are positive for gram-negative bacilli and Alix. Wound VAC in place for the sacral wound. Patient given 500 mL fluid bolus for low blood pressure. Objective - Vital Signs Vital signs: Vital Signs Temp 98.7 F 07/27/19 06:09 Pulse 89 07/27/19 06:09 Resp 16 07/27/19 06:09 BP 95/63 07/27/19 06:09 Pulse Ox 92 L 07/27/19 06:09 Intake & Output 07/26/19 07/27/19 07/27/19 18:59 06:59 18:59 Intake Total 60 Output Total 500 200 Balance -500 -140 Weight 104.326 kg Intake: Oral 60 Output: Urine 500 200 Other: Voiding Method Incontinent Incontinent Incontinent - Exam Review of Systems Constitutional: Denies chills, Denies fever, endorses lethargy and weakness- improving Eyes: denies decreased vision, denies diplopia, denies discharge, denies pain Ears: deny: decreased hearing Ears, nose, mouth and throat: Denies dental pain, Denies headache, Denies nasal discharge, Denies nose pain Cardiovascular: Denies chest pain, Denies decreased exercise tolerance, Denies edema, Denies high blood pressure, Denies irregular heart beat, Denies pa lpitations, Denies paroxysmal nocturnal dyspnea, Denies rapid heart beat, Denies shortness of breath Respiratory: Denies congestion, Denies cough, Denies cough with sputum, Denies dyspnea, Denies home oxygen, Denies wheezing Gastrointestinal: Denies abdominal pain, Denies change in bowel habits, Denies coffee ground emesis, Denies early satiety, Denies excessive gas, Denies heartburn, Denies hematemesis, Denies hematochezia, Denies loss of appetite, Denies nausea, Denies vomiting Genitourinary: Denies dysuria, Denies flank pain, Denies kidney stones, Denies menorrhagia, Denies urgency, Denies urinary frequency Musculoskeletal: Denies gait dysfunction, Denies limitation of motion, Denies morning stiffness, Denies muscle cramps Integumentary: Endorses bilateral lower extremity nonhealing wound, sacral wound, Denies brittle nails, Denies change in hair/nails, Denies darkening of skin Neurological: Denies balance difficulties, Denies change in speech, Denies double vision, Denies gait dysfunction, Denies loss of vision, Denies motor disturbance, Denies numbness, Denies paralysis, Denies paresthesias, Denies seizures Psychiatric: Denies anxiety, Denies depression Endocrine: Denies excessive sweating, Denies excessive thirst, Denies high blood sugars, Denies palpitations Hematologic/Lymphatic: Denies easy bruising, Denies lymphadenopathy - Constitutional General appearance: cooperative, currently uncomfortable in bed, obese - EENT Eyes: anicteric sclerae, PERRLA, normal appearance ENT: hearing grossly normal oral mucous membranes moist - Neck Neck: no lymphadenopathy, normal ROM, no other, no rigidity, no stridor, no thyromegaly - Respiratory Respiratory: bilateral: CTA, negative: diminished, dullness, rales, rhonchi - Cardiovascular Rhythm: regular Heart sounds: normal: S1, S2 Abnormal Heart Sounds: no systolic murmur, no diastolic murmur, no rub, no S3 Gallop, no S4 Gallop, no click, no other - Gastrointestinal General gastrointestinal: normal bowel sounds, soft - Integumentary Integumentary: Bilateral nonhealing lower extremity ulcers involving the anterior surface of the leg with serosanguineous discharge and erythematous base. Large open wound stage IV around 7-5 cm on the right buttock with surrounding erythema with active serosanguineous drainage also has 2 small wounds distantly. Patient has significant nodular deformity involving bilateral hands secondary to rheumatoid arthritis- Neurologic Neurologic: CNII-XII intact - Musculoskeletal Musculoskeletal: 4/5 power bilateral lower extremity - Psychiatric Psychiatric: A&O x's 3, appropriate affect - Labs CBC & Chem 7: 07/27/19 08:11 07/27/19 08:11 Labs: Abnormal Lab Results - Last 24 Hours (Table) 07/26/19 Range/Units 07:58 BUN 19 H (7-17) mg/dL Total Protein 4.7 L (6.3-8.2) g/dL Albumin 2.2 L (3.5-5.0) g/dL Microbiology - Last 24 Hours (Table) 07/25/19 21:30 Gram Stain - Preliminary Leg - Left Wound Culture - Preliminary 07/25/19 23:26 Gram Stain - Preliminary Leg - Right Wound Culture - Preliminary 07/25/19 21:30 Gram Stain - Preliminary Buttock Wound Culture - Preliminary 07/24/19 20:10 Urine Culture - Final Urine,Voided Pseudomonas aeruginosa 07/24/19 19:15 Blood Culture - Preliminary Blood No Growth after 48 hours 07/26/19 21:30 Anaerobic Culture - Preliminary Leg - Right 07/25/19 21:30 Anaerobic Culture - Preliminary Leg - Left 07/25/19 21:30 Anaerobic Culture - Preliminary Buttock Assessment and Plan Plan: 1. Generalized weakness likely secondary to sepsis and anemia continue Rocephin and vancomycin. Infectious disease consulted. 2. Sepsis secondary to Pseudomonas UTI with other possible source of infection includes the bilateral lower extremity ulcers. Sacral wound was evaluated by infectious disease, no further debridement needed. Wound VAC. Currently on Rocephin and vancomycin. 3. Stage IV decubitus ulcer right buttocks: 7 x 5 CM. wound care consult. Was on wound VAC at home but it came off according to the patient Consult with Dr. Rangel. Patient did receive meropenem during last visit as multiple organism including E. coli, Proteus and enterococcus grew during the last visit. She also has history of MRSA and Pseudomonas. Wound consult for local wound care . Bone scan was negative for osteomyelitis but did have cellulitis on 07/12 4. Cellulitis with Chronic lower extremity ulcers secondary to peripheral vascular disease. Wound care has been ordered by wound care team. Dr. Rangel on consult. Patient normally follows with Dr. Medina in the wound healing Cent er. Continue vancomycin per ID recommendation 5. Rheumatoid arthritis with chronic pain. Arava on hold. Continue fentanyl patch 37 g per hour every 72 hours, [place] 10 one every 6 hours, Lyrica 100 mg twice daily. 6. History of DVT. Over a year ago Continue Xarelto. 7. Hypothyroidism. Continue levothyroxine 200 g daily. 8. Chronic kidney disease stage II, stable. 9. Acute on chronic Anemia of chronic disease. Iron studies ordered hemoglobin has dropped from 10.6 to 7.8 on admission, it is 7.3 Patient does have a history of upper GI bleeding from antral ulcers, gastritis and duodenitis for which she was admitted in January 2019. Protonix started at 40 mg daily. EGD as above. 8. DVT prophylaxis. Xarelto. 9. GI prophylaxis. Protonix 40 mg daily Discharge plan: Subacute rehab on Wednesday Impression and plan of care have been directed as dictated by the signing physi rama. Arlene Darnell nurse practitioner acting as scribe for signing physician.
[2019-07-28] MEDS ORDERED: VANCOMYCIN 1,500 MG in SODIUM CHLORIDE 0.9% 250 ML IVPB SCH (06:00)
[2019-07-28] MEDS: LEVOTHYROXINE 100 MCG TAB PO SCH (06:12)
[2019-07-28] MEDS: COLLAGENASE 250 UNIT/GM OINTMENT 30 GM TUBE TOPICAL SCH ×2 (07:40→08:10)
[2019-07-28] MEDS: PREGABALIN 100 MG CAP PO SCH ×2 (08:09→21:13)
[2019-07-28] MEDS: PANTOPRAZOLE 40 MG TABLET PO SCH ×2 (08:09→16:45)
[2019-07-28] MEDS: HYDROcodone/APAP 10-325MG 1 EACH TAB PO SCH ×3 (08:09→21:13)
[2019-07-28] MEDS: RIVAROXABAN 20 MG TAB PO SCH (08:10)
--- NOTE | 2019-07-28 08:17 | PN ---
PROGRESS NOTE DATE OF SERVICE: 07/27/2019 REASON FOR FOLLOWUP: 1. Bilateral lower extremity wound cellulitis. 2. Sacral wound. 3. UTI. INTERVAL HISTORY: The patient is currently afebrile. The patient has been breathing comfortably. The patient denies having any chest pain or shortness of breath or cough and no worsening pain to leg wound area. PHYSICAL EXAMINATION: Blood pressure is 116/77 with a pulse of 91, temperature 99. She is 95% on room air. General description is an elderly female lying in bed in no distress. RESPIRATORY SYSTEM: Unlabored breathing, clear to auscultation anteriorly. HEART: S1, S2. Regular rate and rhythm. ABDOMEN: Soft, no tenderness. Legs are currently wrapped. No obvious drainage on the dressing. LABS: Hemoglobin 8.1, white count 7.8, creatinine 0.78. Wound cultures of the leg showing gram-negative bacilli. Urine is Pseudomonas aeruginosa. DIAGNOSTIC IMPRESSION AND PLAN: Patient with bilateral lower extremity venous stasis ulcers with secondary cellulitis. Culture now with gram-negative. Vancomycin has been discontinued. In view of the urine showing Pseudomonas, antibiotic will be switched over to cefepime 2 grams q.12 hours with discharge antibiotic depending upon the bacteria grown in the leg wound. Continue with supportive care and local wound care as ordered. MMODL / IJN: [id number] /
[2019-07-28 08:29] LABS: Anisocytosis Slight; HCT 29.3 % (34.0-46.0); HGB 8.7 gm/dL (11.4-16.0); Hypochromasia Marked; MCH 26.3 pg (25.0-35.0); MCHC 29.8 g/dL (31.0-37.0); MCV 88.1 fL (80.0-100.0); Mean Platelet Volume 7.9; Platelet Count 501 k/uL (150-450); Poikilocytosis Slight; RBC 3.32 m/uL (3.80-5.40); RDW 17.1 % (11.5-15.5); WBC 7.2 k/uL (3.8-10.6)
[2019-07-28] MEDS ORDERED: LIDOCAINE 4% CREAM 5 GM TUBE TOPICAL PRN (10:51)
[2019-07-28] MEDS: BACLOFEN 10 MG TAB PO PRN (12:32)
[2019-07-28] MEDS: SODIUM CHLORIDE 0.9% 1,000 ML IV SCH (12:32)
[2019-07-28] MEDS: POLYETHYLENE GLYCOL 3350 17 GM POWD.PACK PO SCH (12:32)
--- NOTE | 2019-07-28 15:06 | P.PN ---
Subjective Progress Note Date: 07/28/19 This is a 69-year-old female patient with past medical history of rheumatoid arthritis, hypothyroidism, DVT, fibromyalgia, multiple decubitus ulcer, MRSA infection, previous admission for GI bleed secondary to antral ulcer, gastritis and duodenitis requiring blood transfusion, hypothyroidism, ch ronic kidney disease stage II. Patient can stand with the help of walker and can prevent out of her bed but is a currently bedbound and has minimal mobility. She has chronic wounds on bilateral lower extremity and a decub ulcer in the sacrum. Patient was last seen on July 11 for a large wound on her right posterior thigh that worsened very quickly which was debrided by Dr. Doss and was sent home on oral antibiotics and for wound VAC. [facility] under the care of Dr. Medina but developed a new wound possible skin tear on her right buttocks that was not there on her last Wound Center evaluation. Prednisone was tapered during that visit. Patient comes in today with increased weakness and inability to stand. Patient states that she always have an infection when she feels this. On assessment of vital patient has a temp of 97.8 pulse 85 blood pressure 111/73 saturating 98% on room air. Blood work is positive for a WBC of 11.2 and hemoglobin dropped to 7.9 platelets 505 creatinine 0.9 BUN 29 urine drug screen does suggest a large leukocyte Estrace 26 WBC concerning for UTI. Patient initiated on Rocephin and vancomycin in the ER. Infectious disease was consulted for further evaluation. 07/26/2019 patient had a bedside feels better than yesterday afebrile 98.2 pulse 87 blood pressure 118/75 no episodes of fever overnight. Labs suggestive WBC is 7.8 hemoglobins dropped to 7.3 platelet count 425 creatinine stable at 0.7 BUN improved from 29-19 today UA is positive for gram-negative bacilli final cultures are pending blood cultures have been negative so far. Continue with Rocephin and vancomycin for UTI and cellulitis of the lower extremities. Continue Santyl with moist dressing in the lower extremities. Iron panel suggest iron deficiency. Patient has history of antral ulcers. GI is consulted. Patient does complain of bloating and epigastric tenderness. 07/27: Patient was seen this morning prior to her EGD. EGD did show nonbleeding antral ulcer biopsied and no active bleeding or old blood noted. Recommendations to resume diet and continue Protonix with follow-up in the office, no further follow-up is required with GI. Hemoglobin is stable today at 8.1. She has been afebrile, heart rate 89, blood pressure 94/55, pulse ox 93% on room air. Patient denies having any chest pain. She states her weakness is a little bit better. She does complaining of legs feeling sore. Dr. Rangel is following with plan to continue Santyl and vancomycin. Patient is also on Rocephin for UTI. Urine culture is now found to be positive for Pseudomonas. Wound cultures are positive for gram-negative bacilli and Alix. Wound VAC in place for the sacral wound. Patient given 500 mL fluid bolus for low blood pressure. 07/28: Patient has been afebrile, heart rate 92, blood pressure 109/67, pulse ox 96% on room air. Repeat hemoglobin is 8.7. Patient at this time is stable for discharge however, PT and OT are recommending subacute rehab. Patient is reluctant to agree to this. She is complaining of right thigh discomfort that feels like a pulled muscle. Lidocaine gel will be added. Patient did have hypotension yesterday and fentanyl patches were removed and this will be resumed at only the 12 g. Anticipate discharge on Wednesday to rehab. Case management/social work following. Objective - Vital Signs Vital signs: Vital Signs Temp 98.7 F 07/28/19 04:55 Pulse 92 07/28/19 07:38 Resp 20 07/28/19 04:55 BP 109/67 07/28/19 07:38 Pulse Ox 90 L 07/28/19 04:55 Intake & Output 07/27/19 07/28/19 07/28/19 18:59 06:59 18:59 Intake Total 340 300 480 Output Total 200 600 Balance 140 -300 480 Intake: IV 100 Oral 240 300 480 Output: Urine 200 600 Other: Voiding Method Incontinent Incontinent - Exam Review of Systems Constitutional: Denies chills, Denies fever, endorses lethargy and weakness- improving Eyes: denies decreased vision, denies diplopia, denies discharge, denies pain Ears: deny: decreased hearing Ears, nose, mouth and throat: Denies dental pain, Denies headache, Denies nasal discharge, Denies nose pain Cardiovascular: Denies chest pain, Denies decreased exercise tolerance, Denies edema, Denies high blood pressure, Denies irregular heart beat, Denies palpitations, Denies paroxysmal nocturnal dyspnea, Denies rapid heart beat, Denies shortness of breath Respiratory: Denies congestion, Denies cough, Denies cough with sputum, Denies dyspnea, Denies home oxygen, Denies wheezing Gastrointestinal: Denies abdominal pain, Denies change in bowel habits, Denies coffee ground emesis, Denies early satiety, Denies excessive gas, Denies heartburn, Denies hematemesis, Denies hematochezia, Denies loss of appetite, Denies nausea, Denies vomiting Genitourinary: Denies dysuria, Denies flank pain, Denies kidney stones, Denies menorrhagia, Denies urgency, Denies urinary frequency Musculoskeletal: Denies gait dysfunction, Denies limitation of motion, Denies morning stiffness, Denies muscle cramps, reports pain right thigh. Integumentary: Endorses bilateral lower extremity nonhealing wound, sacral wound, Denies brittle nails, Denies change in hair/nails, Denies darkening of skin Neurological: Denies balance difficulties, Denies change in speech, Denies double vision, Denies gait dysfunction, Denies loss of vision, Denies motor disturbance, Denies numbness, Denies paralysis, Denies paresthesias, Denies seizures Psychiatric: Denies anxiety, Denies depression Endocrine: Denies excessive sweating, Denies excessive thirst, Denies high blood sugars, Denies palpitations Hematologic/Lymphatic: Denies easy bruising, Denies lymphadenopathy - Constitutional General appearance: cooperative, currently uncomfortable in bed, obese, no acute distress - EENT Eyes: anicteric sclerae, PERRLA, normal appearance ENT: hearing grossly normal oral mucous membranes moist - Neck Neck: no lymphadenopathy, normal ROM, no other, no rigidity, no stridor, no thyromegaly - Respiratory Respiratory: bilateral: CTA, negative: diminished, dullness, rales, rhonchi - Cardiovascular Rhythm: regular Heart sounds: normal: S1, S2 Abnormal Heart Sounds: no systolic murmur, no diastolic murmur, no rub, no S3 Gallop, no S4 Gallop, no click, no other - Gastrointestinal General gastrointestinal: normal bowel sounds, soft - Integumentary Integumentary: Bilateral nonhealing lower extremity ulcers involving the anterior surface of the leg with serosanguineous discharge and erythematous base. Large open wound stage IV around 7-5 cm on the right buttock with surrounding erythema with active serosanguineous drainage also has 2 small wounds distantly. Patient has significant nodular deformity involving bilateral hands secondary to rheumatoid arthritis- Neurologic Neurologic: CNII-XII intact - Musculoskeletal Musculoskeletal: 4/5 power bilateral lower extremity No erythema, tenderness to right thigh - Psychiatric Psychiatric: A&O x's 3, appropriate affect - Labs CBC & Chem 7: 07/28/19 08:19 07/27/19 08:11 Labs: Abnormal Lab Results - Last 24 Hours (Table) 07/28/19 Range/Units 08:19 RBC 3.32 L (3.80-5.40) m/uL Hgb 8.7 L (11.4-16.0) gm/dL Hct 29.3 L (34.0-46.0) % MCHC 29.8 L (31.0-37.0) g/dL RDW 17.1 H (11.5-15.5) % Plt Count 501 H (150-450) k/uL Microbiology - Last 24 Hours (Table) 07/24/19 19:15 Blood Culture - Preliminary Blood No Growth after 72 hours 07/25/19 21:30 Gram Stain - Preliminary Leg - Left Wound Culture - Preliminary Gram Neg Bacilli Alix albicans 07/25/19 21:30 Gram Stain - Preliminary Buttock Wound Culture - Preliminary Gram Neg Bacilli 07/25/19 23:26 Gram Stain - Preliminary Leg - Right Wound Culture - Preliminary Gram Neg Bacilli Alix albicans Assessment and Plan Plan: 1. Generalized weakness likely secondary to sepsis and anemia continue Rocephin. Infectious disease consulted. 2. Sepsis secondary to Pseudomonas UTI with other possible source of infection includes the bilateral lower extremity ulcers. Sacral wound was evaluated by infectious disease, no further debridement needed. Wound VAC. Currently on Rocephin. 3. Stage IV decubitus ulcer right buttocks: 7 x 5 CM. wound care consult. Was on wound VAC at home but it came off according to the patient Consult with Dr. Rangel. Patient did receive meropenem during last visit as multiple organism including E. coli, Proteus and enterococcus grew during the last visit. She also has history of MRSA and Pseudomonas. Wound consult for local wound care . Bone scan was negative for osteomyelitis but did have cellulitis on 07/12 4. Cellulitis with Chronic lower extremity ulcers secondary to peripheral vasc ular disease. Wound care has been ordered by wound care team. Dr. Rangel on consult. Patient normally follows with Dr. Medina in the wound healing Center. 5. Rheumatoid arthritis with chronic pain. Arava on hold. Continue fentanyl patch decreased to 12 g per hour every 72 hours, [place] 10 one every 6 hours, Lyrica 100 mg twice daily. Right thigh pain for which lidocaine gel added. 6. History of DVT. Over a year ago Continue Xarelto. 7. Hypothyroidism. Continue levothyroxine 200 g daily. 8. Chronic kidney disease stage II, stable. 9. Acute on chronic Anemia of chronic disease. Iron studies ordered hemoglobin has dropped from 10.6 to 7.8 on admission, it is 7.3 Patient does have a history of upper GI bleeding from antral ulcers, gastritis and duodenitis for which she was admitted in January 2019. Protonix started at 40 mg daily. EGD as above. 8. DVT prophylaxis. Xarelto. 9. GI prophylaxis. Protonix 40 mg daily Discharge plan: Subacute rehab on Wednesday. PT and OT following. Impression and plan of care have been directed as dictated by the signing physi rama. Arlene Darnell nurse practitioner acting as scribe for signing physician.
[2019-07-28] MEDS: CEFEPIME 2 GM in SODIUM CHLORIDE 0.9% 100 ML IVPB SCH ×2 (16:46→21:13)
--- NOTE | 2019-07-28 18:56 | PN ---
PROGRESS NOTE DATE OF SERVICE: 07/28/2019 REASON FOR FOLLOWUP: 1. Bilateral lower extremity wound and ulitis. 2. Sacral wound. 3. Urinary tract infection. INTERVAL HISTORY: The patient is currently afebrile. The patient has been breathing comfortably. Patient denies having any chest pain or running cough. No abdominal pain, or any worsening pain to the leg area. PHYSICAL EXAMINATION: Blood pressure 110/63 with a pulse of 95. Temperature is 97.6. She is 96% on room air. General description is an elderly female, lying in bed in no distress. Respiratory system: Unlabored breathing. Clear to auscultation anteriorly. Heart S1, S2. Regular rate and rhythm. Abdomen soft, no tenderness. Bilateral leg wounds did have minimal slough tissue, surrounding redness has improved. No drainage. LABS: Hemoglobin 8.7, white count 7.2. Vanco level is 22,000. Wound cultures from the leg also showing Pseudomonas aeruginosa. DIAGNOSTIC IMPRESSION AND PLAN: 1. Patient with bilateral lower extremity wound with secondary cellulitis. Culture positive for Pseudomonas aeruginosa and Alix albicans which is more likely colonized with urine showing Pseudomonas aeruginosa as well. Patient is currently covered with cefepime 2 g q12. Local care to continue with Medihoney and continue with supportive care. 2. Sacral wound. Local care to continue with wound VAC and monitor her clinical course closely. MMODL / IJN: [id number] /
[2019-07-28] MEDS: SENNOSIDES-DOCUSATE SODIUM 1 EACH TAB PO SCH (21:13)
[2019-07-29] MEDS: SODIUM CHLORIDE 0.9% 1,000 ML IV SCH ×2 (00:10→13:47)
[2019-07-29] MEDS: LEVOTHYROXINE 100 MCG TAB PO SCH (06:06)
[2019-07-29] MEDS: PANTOPRAZOLE 40 MG TABLET PO SCH ×2 (08:11→16:47)
[2019-07-29] MEDS: HYDROcodone/APAP 10-325MG 1 EACH TAB PO SCH ×3 (08:11→21:26)
[2019-07-29] MEDS: CEFEPIME 2 GM in SODIUM CHLORIDE 0.9% 100 ML IVPB SCH ×2 (08:12→21:28)
[2019-07-29] MEDS: PREGABALIN 100 MG CAP PO SCH ×2 (08:12→21:26)
[2019-07-29] MEDS: COLLAGENASE 250 UNIT/GM OINTMENT 30 GM TUBE TOPICAL SCH (08:12)
[2019-07-29] MEDS: POLYETHYLENE GLYCOL 3350 17 GM POWD.PACK PO SCH (08:12)
[2019-07-29] MEDS: RIVAROXABAN 20 MG TAB PO SCH (08:12)
[2019-07-29] MEDS: BACLOFEN 10 MG TAB PO PRN ×2 (08:22→16:46)
[2019-07-29 08:33] LABS: Anisocytosis Slight; HCT 28.4 % (34.0-46.0); HGB 8.3 gm/dL (11.4-16.0); Hypochromasia Marked; MCH 25.8 pg (25.0-35.0); MCHC 29.2 g/dL (31.0-37.0); MCV 88.2 fL (80.0-100.0); Mean Platelet Volume 7.8; Platelet Count 465 k/uL (150-450); Poikilocytosis Slight; RBC 3.22 m/uL (3.80-5.40); RDW 17.7 % (11.5-15.5); WBC 6.8 k/uL (3.8-10.6)
--- NOTE | 2019-07-29 12:24 | PN ---
PROGRESS NOTE DATE OF SERVICE: 07/29/2019 REASON FOR FOLLOWUP: Bilateral lower extremity wound, UTI and a sacral pressure ulcer. INTERVAL HISTORY: The patient is currently afebrile. The patient is breathing comfortably. The patient denies having any chest pain or shortness of breath or cough. No abdominal pain or any worsening pain to the leg wound area. PHYSICAL EXAMINATION: Blood pressure 95/61 with a pulse of 91, temperature 98.2, she is 93% on room air. General description is an elderly female, lying in bed in no distress. RESPIRATORY SYSTEM: Unlabored breathing, clear to auscultation anteriorly. HEART: S1, S2. Regular rate and rhythm. Legs are currently wrapped with no obvious drainage on the dressing. LABS: Hemoglobin is 8.8, white count of 6.8. DIAGNOSTIC IMPRESSION/PLAN: 1. Patient with bilateral lower extremity venostasis, cellulitis. Culture has been positive for Pseudomonas aeruginosa. The patient is currently on cefepime. Local care with Santyl followed by moist dressing. If the patient goes to rehab, will consider a midline and IV cefepime. If she is going home, antibiotic can be switched over to oral Cipro. 2. Stage III sacral pressure ulcer and local wound care to continue with the wound VAC. 3. Pseudomonas urinary tract infection, currently covered with cefepime. MMODL / IJN: [id number] /
--- NOTE | 2019-07-29 15:27 | P.PN ---
Subjective Progress Note Date: 07/29/19 This is a 69-year-old female patient with past medical history of rheumatoid arthritis, hypothyroidism, DVT, fibromyalgia, multiple decubitus ulcer, MRSA infection, previous admission for GI bleed secondary to antral ulcer, gastritis and duodenitis requiring blood transfusion, hypothyroidism, ch ronic kidney disease stage II. Patient can stand with the help of walker and can prevent out of her bed but is a currently bedbound and has minimal mobility. She has chronic wounds on bilateral lower extremity and a decub ulcer in the sacrum. Patient was last seen on July 11 for a large wound on her right posterior thigh that worsened very quickly which was debrided by Dr. Doss and was sent home on oral antibiotics and for wound VAC. Patient [facility] under the care of Dr. Medina but developed a new wound possible skin tear on her right buttocks that was not there on her last Wound Center evaluation. Prednisone was tapered during that visit. Patient comes in today with increased weakness and inability to stand. Patient states that she always have an infection when she feels this. On assessment of vital patient has a temp of 97.8 pulse 85 blood pressure 111/73 saturating 98% on room air. Blood work is positive for a WBC of 11.2 and hemoglobin dropped to 7.9 platelets 505 creatinine 0.9 BUN 29 urine drug screen does suggest a large leukocyte Estrace 26 WBC concerning for UTI. Patient initiated on Rocephin and vancomycin in the ER. Infectious disease was consulted for further evaluation. 07/26/2019 patient had a bedside feels better than yesterday afebrile 98.2 pulse 87 blood pressure 118/75 no episodes of fever overnight. Labs suggestive WBC is 7.8 hemoglobins dropped to 7.3 platelet count 425 creatinine stable at 0.7 BUN improved from 29-19 today UA is positive for gram-negative bacilli final cultures are pending blood cultures have been negative so far. Continue with Rocephin and vancomycin for UTI and cellulitis of the lower extremities. Continue Santyl with moist dressing in the lower extremities. Iron panel suggest iron deficiency. Patient has history of antral ulcers. GI is consulted. Patient does complain of bloating and epigastric tenderness. 07/27: Patient was seen this morning prior to her EGD. EGD did show nonbleeding antral ulcer biopsied and no active bleeding or old blood noted. Recommendations to resume diet and continue Protonix with follow-up in the office, no further follow-up is required with GI. Hemoglobin is stable today at 8.1. She has been afebrile, heart rate 89, blood pressure 94/55, pulse ox 93% on room air. Patient denies having any chest pain. She states her weakness is a little bit better. She does complaining of legs feeling sore. Dr. Rangel is following with plan to continue Santyl and vancomycin. Patient is also on Rocephin for UTI. Urine culture is now found to be positive for Pseudomonas. Wound cultures are positive for gram-negative bacilli and Alix. Wound VAC in place for the sacral wound. Patient given 500 mL fluid bolus for low blood pressure. 07/28: Patient has been afebrile, heart rate 92, blood pressure 109/67, pulse ox 96% on room air. Repeat hemoglobin is 8.7. Patient at this time is stable for discharge however, PT and OT are recommending subacute rehab. Patient is reluctant to agree to this. She is complaining of right thigh discomfort that feels like a pulled muscle. Lidocaine gel will be added. Patient did have hypotension yesterday and fentanyl patches were removed and this will be resumed at only the 12 g. Anticipate discharge on Wednesday to rehab. Case management/social work following. 07/29: The patient denies any new complaints. She is currently on cefepime Santyl for local wound care and wound VAC. Patient is working with PT and OT. Plan for discharge to [facility] on Wednesday. Biopsy from EGD is negative for malignancy and negative for H. pylori. Objective - Vital Signs Vital signs: Vital Signs Temp 98.2 F 07/29/19 05:48 Pulse 91 07/29/19 05:48 Resp 20 07/29/19 05:48 BP 95/61 07/29/19 05:48 Pulse Ox 93 L 07/29/19 05:48 Intake & Output 07/28/19 07/29/19 07/29/19 18:59 06:59 18:59 Intake Total 960 Output Total 800 Balance 960 -800 Weight 104.326 kg Intake: Oral 960 Output: Urine 800 Other: Voiding Method Incontinent # Voids 3 # Bowel Movements 0 - Exam Review of Systems Constitutional: Denies chills, Denies fever, endorses lethargy and weakness- improving Eyes: denies decreased vision, denies diplopia, denies discharge, denies pain Ears: deny: decreased hearing Ears, nose, mouth and throat: Denies dental pain, Denies headache, Denies nasal discharge, Denies nose pain Cardiovascular: Denies chest pain, Denies decreased exercise tolerance, Denies edema, Denies high blood pressure, Denies irregular heart beat, Denies palpitations, Denies paroxysmal nocturnal dyspnea, Denies rapid heart beat, Denies shortness of breath Respiratory: Denies congestion, Denies cough, Denies cough with sputum, Denies dyspnea, Denies home oxygen, Denies wheezing Gastrointestinal: Denies abdominal pain, Denies change in bowel habits, Denies coffee ground emesis, Denies early satiety, Denies excessive gas, Denies heartburn, Denies hematemesis, Denies hematochezia, Denies loss of appetite, Denies nausea, Denies vomiting Genitourinary: Denies dysuria, Denies flank pain, Denies kidney stones, Denies menorrhagia, Denies urgency, Denies urinary frequency Musculoskeletal: Denies gait dysfunction, Denies limitation of motion, Denies morning stiffness, Denies muscle cramps, reports pain right thigh. Integumentary: Endorses bilateral lower extremity nonhealing wound, sacral wound, Denies brittle nails, Denies change in hair/nails, Denies darkening of skin Neurological: Denies balance difficulties, Denies change in speech, Denies double vision, Denies gait dysfunction, Denies loss of vision, Denies motor disturbance, Denies numbness, Denies paralysis, Denies paresthesias, Denies seizures Psychiatric: Denies anxiety, Denies depression Endocrine: Denies excessive sweating, Denies excessive thirst, Denies high blood sugars, Denies palpitations Hematologic/Lymphatic: Denies easy bruising, Denies lymphadenopathy - Constitutional General appearance: cooperative, currently comfortable in bed, obese, no acute distress - EENT Eyes: anicteric sclerae, PERRLA, normal appearance ENT: hearing grossly normal oral mucous membranes moist - Neck Neck: no lymphadenopathy, normal ROM, no other, no rigidity, no stridor, no thyromegaly - Respiratory Respiratory: bilateral: CTA, negative: diminished, dullness, rales, rhonchi - Cardiovascular Rhythm: regular Heart sounds: normal: S1, S2 Abnormal Heart Sounds: no systolic murmur, no diastolic murmur, no rub, no S3 Gallop, no S4 Gallop, no click, no other - Gastrointestinal General gastrointestinal: normal bowel sounds, soft - Integumentary Integumentary: Bilateral nonhealing lower extremity ulcers involving the anterior surface of the leg with serosanguineous discharge and erythematous base. Large open wound stage IV around 7-5 cm on the right buttock with surrounding erythema with active serosanguineous drainage also has 2 small wounds distantly. Patient has significant nodular deformity involving bilateral hands secondary to rheumatoid arthritis- Neurologic Neurologic: CNII-XII intact - Musculoskeletal Musculoskeletal: 4/5 power bilateral lower extremity No erythema, tenderness to right thigh - Psychiatric Psychiatric: A&O x's 3, appropriate affect - Labs CBC & Chem 7: 07/29/19 07:57 07/27/19 08:11 Labs: Abnormal Lab Results - Last 24 Hours (Table) 07/29/19 Range/Units 07:57 RBC 3.22 L (3.80-5.40) m/uL Hgb 8.3 L (11.4-16.0) gm/dL Hct 28.4 L (34.0-46.0) % MCHC 29.2 L (31.0-37.0) g/dL RDW 17.7 H (11.5-15.5) % Plt Count 465 H (150-450) k/uL Microbiology - Last 24 Hours (Table) 07/24/19 19:15 Blood Culture - Preliminary Blood No Growth after 96 hours 07/25/19 21:30 Gram Stain - Final Leg - Left Wound Culture - Final Pseudomonas aeruginosa Alix albicans 07/26/19 21:30 Anaerobic Culture - Preliminary Leg - Right 07/25/19 21:30 Anaerobic Culture - Preliminary Leg - Left 07/25/19 21:30 Anaerobic Culture - Preliminary Buttock 07/25/19 21:30 Gram Stain - Final Buttock Wound Culture - Final Pseudomonas aeruginosa 07/25/19 23:26 Gram Stain - Final Leg - Right Wound Culture - Final Pseudomonas aeruginosa Alix albicans Assessment and Plan Plan: 1. Generalized weakness likely secondary to sepsis and anemia continue cefepime. Infectious disease consulted. 2. Sepsis secondary to Pseudomonas UTI with other possible source of infection includes the bilateral lower extremity ulcers. Sacral wound was evaluated by infectious disease, no further debridement needed. Wound VAC. Currently on cefepime 3. Stage IV decubitus ulcer right buttocks: 7 x 5 CM. wound care consult. Was on wound VAC at home but it came off according to the patient Consult with Dr. Rangel. Patient did receive meropenem during last visit as multiple organism including E. coli, Proteus and enterococcus grew during the last visit. She also has history of MRSA and Pseudomonas. Wound consult for local wound care . Bone scan was negative for osteomyelitis but did have cellulitis on 07/12 4. Cellulitis with Chronic lower extremity ulcers secondary to peripheral v ascular disease. Wound care has been ordered by wound care team. Dr. Rangel on consult. Patient normally follows with Dr. Medina in the wound healing Center. 5. Rheumatoid arthritis with chronic pain. Arava on hold. Continue fentanyl patch decreased to 12 g per hour every 72 hours, [place] 10 one every 6 hours, Lyrica 100 mg twice daily. Right thigh pain for which lidocaine gel added. 6. History of DVT. Over a year ago Continue Xarelto. 7. Hypothyroidism. Continue levothyroxine 200 g daily. 8. Chronic kidney disease stage II, stable. 9. Acute on chronic Anemia of chronic disease. Iron studies ordered hemoglobin has dropped from 10.6 to 7.8 on admission, it is 7.3 Patient does have a history of upper GI bleeding from antral ulcers, gastritis and duodenitis for which she was admitted in January 2019. Protonix started at 40 mg daily. EGD as above. 8. DVT prophylaxis. Xarelto. 9. GI prophylaxis. Protonix 40 mg daily Discharge plan: on Wednesday. PT and OT following. Impression and plan of care have been directed as dictated by the signing physician. Arlene Darnell nurse practitioner acting as scribe for signing physician.
[2019-07-29] MEDS: SENNOSIDES-DOCUSATE SODIUM 1 EACH TAB PO SCH (21:28)
[2019-07-30] MEDS: SODIUM CHLORIDE 0.9% 1,000 ML IV SCH ×2 (02:55→18:02)
[2019-07-30] MEDS: LEVOTHYROXINE 100 MCG TAB PO SCH (05:36)
[2019-07-30] MEDS: POLYETHYLENE GLYCOL 3350 17 GM POWD.PACK PO SCH (06:26)
[2019-07-30] MEDS ORDERED: SODIUM CHLORIDE 0.9% 500 ML 500 ML IV ONE (08:49)
[2019-07-30] MEDS: PREGABALIN 100 MG CAP PO SCH ×2 (08:57→20:20)
[2019-07-30] MEDS: HYDROcodone/APAP 10-325MG 1 EACH TAB PO SCH ×3 (08:57→20:20)
[2019-07-30] MEDS: RIVAROXABAN 20 MG TAB PO SCH (08:57)
[2019-07-30] MEDS: PANTOPRAZOLE 40 MG TABLET PO SCH ×2 (08:57→18:02)
[2019-07-30] MEDS: CEFEPIME 2 GM in SODIUM CHLORIDE 0.9% 100 ML IVPB SCH ×2 (08:58→20:21)
[2019-07-30] MEDS: BACLOFEN 10 MG TAB PO SCH ×2 (08:59→20:20)
[2019-07-30] MEDS: COLLAGENASE 250 UNIT/GM OINTMENT 30 GM TUBE TOPICAL SCH (10:20)
--- NOTE | 2019-07-30 15:38 | P.PN ---
Subjective Progress Note Date: 07/30/19 This is a 69-year-old female patient with past medical history of rheumatoid arthritis, hypothyroidism, DVT, fibromyalgia, multiple decubitus ulcer, MRSA infection, previous admission for GI bleed secondary to antral ulcer, gastritis and duodenitis requiring blood transfusion, hypothyroidism, ch ronic kidney disease stage II. Patient can stand with the help of walker and can prevent out of her bed but is a currently bedbound and has minimal mobility. She has chronic wounds on bilateral lower extremity and a decub ulcer in the sacrum. Patient was last seen on July 11 for a large wound on her right posterior thigh that worsened very quickly which was debrided by Dr. Doss and was sent home on oral antibiotics and for wound VAC. [facility] under the care of Dr. Medina but developed a new wound possible skin tear on her right buttocks that was not there on her last [facility]ound [facility] evaluation. Prednisone was tapered during that visit. Patient comes in today with increased weakness and inability to stand. Patient states that she always have an infection when she feels this. On assessment of vital patient has a temp of 97.8 pulse 85 blood pressure 111/73 saturating 98% on room air. Blood work is positive for a WBC of 11.2 and hemoglobin dropped to 7.9 platelets 505 creatinine 0.9 BUN 29 urine drug screen does suggest a large leukocyte Estrace 26 WBC concerning for UTI. Patient initiated on Rocephin and vancomycin in the ER. Infectious disease was consulted for further evaluation. 07/26/2019 patient had a bedside feels better than yesterday afebrile 98.2 pulse 87 blood pressure 118/75 no episodes of fever overnight. Labs suggestive WBC is 7.8 hemoglobins dropped to 7.3 platelet count 425 creatinine stable at 0.7 BUN improved from 29-19 today UA is positive for gram-negative bacilli final cultures are pending blood cultures have been negative so far. Continue with Rocephin and vancomycin for UTI and cellulitis of the lower extremities. Continue Santyl with moist dressing in the lower extremities. Iron panel suggest iron deficiency. Patient has history of antral ulcers. GI is consulted. Patient does complain of bloating and epigastric tenderness. 07/27: Patient was seen this morning prior to her EGD. EGD did show nonbleeding antral ulcer biopsied and no active bleeding or old blood noted. Recommendations to resume diet and continue Protonix with follow-up in the office, no further follow-up is required with GI. Hemoglobin is stable today at 8.1. She has been afebrile, heart rate 89, blood pressure 94/55, pulse ox 93% on room air. Patient denies having any chest pain. She states her weakness is a little bit better. She does complaining of legs feeling sore. Dr. Rangel is following with plan to continue Santyl and vancomycin. Patient is also on Rocephin for UTI. Urine culture is now found to be positive for Pseudomonas. Wound cultures are positive for gram-negative bacilli and Alix. Wound VAC in place for the sacral wound. Patient given 500 mL fluid bolus for low blood pressure. 07/28: Patient has been afebrile, heart rate 92, blood pressure 109/67, pulse ox 96% on room air. Repeat hemoglobin is 8.7. Patient at this time is stable for discharge however, PT and OT are recommending subacute rehab. Patient is reluctant to agree to this. She is complaining of right thigh discomfort that feels like a pulled muscle. Lidocaine gel will be added. Patient did have hypotension yesterday and fentanyl patches were removed and this will be resumed at only the 12 g. Anticipate discharge on Wednesday to rehab. Case management/social work following. 07/29: The patient denies any new complaints. She is currently on cefepime Santyl for local wound care and wound VAC. Patient is working with PT and OT. Plan for discharge to [facility] on Wednesday. Biopsy from EGD is negative for malignancy and negative for H. pylori. 07/30: The patient has no new complaints. A blood pressure in the low side and patient was complaining of lightheadedness for which a fluid bolus was given. Currently blood pressure 96/59, pulse ox 92% on room air, afebrile, heart rate 92. Patient states that she slept okay during the night. She did have a soft bowel movement, no diarrhea. Objective - Vital Signs Vital signs: Vital Signs Temp 99.1 F 07/30/19 06:07 Pulse 92 07/30/19 06:07 Resp 16 07/30/19 06:07 BP 96/59 07/30/19 06:07 Pulse Ox 92 L 07/30/19 06:07 Intake & Output 07/29/19 07/30/19 07/30/19 18:59 06:59 18:59 Output Total 400 900 Balance -400 -900 Output: Urine 400 900 Other: Voiding Method Incontinent # Bowel Movements 1 - Exam Review of Systems Constitutional: Denies chills, Denies fever, endorses lethargy and weakness- improving Eyes: denies decreased vision, denies diplopia, denies discharge, denies pain Ears: deny: decreased hearing Ears, nose, mouth and throat: Denies dental pain, Denies headache, Denies nasal discharge, Denies nose pain Cardiovascular: Denies chest pain, Denies decreased exercise tolerance, Denies edema, Denies high blood pressure, Denies irregular heart beat, Denies palpitat ions, Denies paroxysmal nocturnal dyspnea, Denies rapid heart beat, Denies shortness of breath Respiratory: Denies congestion, Denies cough, Denies cough with sputum, Denies dyspnea, Denies home oxygen, Denies wheezing Gastrointestinal: Denies abdominal pain, Denies change in bowel habits, Denies coffee ground emesis, Denies early satiety, Denies excessive gas, Denies heartburn, Denies hematemesis, Denies hematochezia, Denies loss of appetite, Denies nausea, Denies vomiting Genitourinary: Denies dysuria, Denies flank pain, Denies kidney stones, Denies menorrhagia, Denies urgency, Denies urinary frequency Musculoskeletal: Denies gait dysfunction, Denies limitation of motion, Denies morning stiffness, Denies muscle cramps, reports pain right thigh. Integumentary: Endorses bilateral lower extremity nonhealing wound, sacral wound, Denies brittle nails, Denies change in hair/nails, Denies darkening of skin Neurological: Denies balance difficulties, Denies change in speech, Denies double vision, Denies gait dysfunction, Denies loss of vision, Denies motor disturbance, Denies numbness, Denies paralysis, Denies paresthesias, Denies seizures Psychiatric: Denies anxiety, Denies depression Endocrine: Denies excessive sweating, Denies excessive thirst, Denies high blood sugars, Denies palpitations Hematologic/Lymphatic: Denies easy bruising, Denies lymphadenopathy - Constitutional General appearance: cooperative, currently comfortable in bed, obese, no acute distress - EENT Eyes: anicteric sclerae, PERRLA, normal appearance ENT: hearing grossly normal oral mucous membranes moist - Neck Neck: no lymphadenopathy, normal ROM, no other, no rigidity, no stridor, no thyromegaly - Respiratory Respiratory: bilateral: CTA, negative: diminished, dullness, rales, rhonchi - Cardiovascular Rhythm: regular Heart sounds: normal: S1, S2 Abnormal Heart Sounds: no systolic murmur, no diastolic murmur, no rub, no S3 Gallop, no S4 Gallop, no click, no other - Gastrointestinal General gastrointestinal: normal bowel sounds, soft - Integumentary Integumentary: Bilateral nonhealing lower extremity ulcers involving the anterior surface of the leg with serosanguineous discharge and erythematous base. Large open wound stage IV around 7-5 cm on the right buttock with surrounding erythema with active serosanguineous drainage also has 2 small wounds distantly. Wound VAC is in place. Patient has significant nodular deformity involving bilateral hands secondary to rheumatoid arthritis- Neurologic Neurologic: CNII-XII intact - Musculoskeletal Musculoskeletal: 4/5 power bilateral lower extremity No erythema, tenderness to right thigh - Psychiatric Psychiatric: A&O x's 3, appropriate affect - Labs CBC & Chem 7: 07/29/19 07:57 07/27/19 08:11 Labs: Microbiology - Last 24 Hours (Table) 07/24/19 19:15 Blood Culture - Preliminary Blood No Growth after 120 hours Assessment and Plan Plan: 1. Generalized weakness likely secondary to sepsis and anemia continue cef epime. Infectious disease consulted. 2. Sepsis secondary to Pseudomonas UTI with other possible source of infection includes the bilateral lower extremity ulcers. Sacral wound was evaluated by infectious disease, no further debridement needed. Wound VAC. Currently on cefepime. Midline will be ordered. Patient will be on cefepime for [address] Rangel. 3. Stage IV decubitus ulcer right buttocks: 7 x 5 CM. wound care consult. Was on wound VAC at home but it came off according to the patient Consult with Dr. Rangel. Patient did receive meropenem during last visit as multiple organism including E. coli, Proteus and enterococcus grew during the last visit. She also has history of MRSA and Pseudomonas. Wound consult for local wound care . Bone scan was negative for osteomyelitis but did have cellulitis on 07/12 4. Cellulitis with Chronic lower extremity ulcers secondary to peripheral vascular disease. Wound care has been ordered by wound care team. Dr. Rangel on consult. Patient normally follows with Dr. Medina in the wound healing Center. 5. Rheumatoid arthritis with chronic pain. Arava on hold. Continue fentanyl patch decreased to 12 g per hour every 72 hours, [place] 10 one every 6 hours, Lyrica 100 mg twice daily. Right thigh pain for which lidocaine gel added. 6. History of DVT. Over a year ago Continue Xarelto. 7. Hypothyroidism. Continue levothyroxine 200 g daily. 8. Chronic kidney disease stage II, stable. 9. Acute on chronic Anemia of chronic disease. Iron studies ordered hemoglobin has dropped from 10.6 to 7.8 on admission, it is 7.3 Patient does have a history of upper GI bleeding from antral ulcers, gastritis and duodenitis for which she was admitted in January 2019. Protonix started at 40 mg daily. EGD as above. 8. DVT prophylaxis. Xarelto. 9. GI prophylaxis. Protonix 40 mg daily Discharge plan: on Wednesday. PT and OT following. Impression and plan of care have been directed as dictated by the signing physician. Arlene Darnell nurse practitioner acting as scribe for signing physician.
[2019-07-30] MEDS: SENNOSIDES-DOCUSATE SODIUM 1 EACH TAB PO SCH (20:18)
[2019-07-31] MEDS: LEVOTHYROXINE 100 MCG TAB PO SCH (05:44)
[2019-07-31] MEDS: SODIUM CHLORIDE 0.9% 1,000 ML IV SCH (05:44)
--- NOTE | 2019-07-31 07:03 | PN ---
PROGRESS NOTE DATE OF SERVICE: 07/30/2019 REASON FOR FOLLOWUP: 1. Bilateral lower extremity wound and cellulitis. 2. Stage III sacral pressure ulcer. 3. Pseudomonas urinary tract infection. INTERVAL HISTORY: The patient is currently afebrile. The patient is breathing comfortably. The patient denies having any chest pain, shortness of breath or cough. No nausea, no vomiting. No abdominal pain. No diarrhea. PHYSICAL EXAMINATION: Blood pressure is 100/63 with a pulse of 96, temperature of 98.1. She is 92% on room air. General description is an elderly female lying in bed in no distress. RESPIRATORY SYSTEM: Unlabored breathing, clear to auscultation anteriorly. HEART: S1, S2. Regular rate and rhythm. ABDOMEN: Soft, no tenderness. Legs are currently wrapped up, mentioned overall improvement. LABS: Hemoglobin 8.3, white count 6.8. Leg cultures with Pseudomonas aeruginosa and the urine is also Pseudomonas. DIAGNOSTIC IMPRESSION AND PLAN: 1. Patient with bilateral lower extremity venous stasis ulcer with secondary cellulitis. The patient did show overall clinical improvement. To continue with local wound care with Santyl followed by moist dressing and cefepime 2 grams q.12 for a total of 2 weeks to finish course of therapy. 2. Stage III sacral pressure ulcer. Local wound care with wound VAC, change Wednesday, Wednesday, Wednesday. 3. Pseudomonas urinary tract infection should be covered with for which the patient is currently receiving and continue supportive care. MMODL / IJN: [id number] /
[2019-07-31 08:26] LABS: Anisocytosis Slight; HCT 24.7 % (34.0-46.0); HGB 7.4 gm/dL (11.4-16.0); Hypochromasia Marked; MCH 26.9 pg (25.0-35.0); MCHC 29.9 g/dL (31.0-37.0); MCV 89.8 fL (80.0-100.0); Mean Platelet Volume 8.1; Platelet Count 461 k/uL (150-450); Poikilocytosis Slight; RBC 2.75 m/uL (3.80-5.40); RDW 17.3 % (11.5-15.5); WBC 5.7 k/uL (3.8-10.6)
[2019-07-31 08:29] LABS: Calcium 8.9 mg/dL (8.4-10.2); Potassium 3.9 mmol/L (3.5-5.1)
--- NOTE | 2019-07-31 08:46 | P.DS ---
Providers Date of admission: 07/27/19 09:11 Expected date of discharge: 07/31/19 Attending physician: Cierra Moyer Consults: 07/25/19 11:07 Consult Physician Routine Consulting Provider: Jocelyn Rangel Consult Reason/Comments: decubitus ulcer - infected seen by Dr. Joya in the past Do you want consulting provider notified?: Yes Primary care physician: Cierra Moyer Hospital Course: This is a 69-year-old female patient with past medical history of rheumatoid arthritis, hypothyroidism, DVT, fibromyalgia, multiple decubitus ulcer, MRSA infection, previous admission for GI bleed secondary to antral ulcer, gastritis and duodenitis requiring blood transfusion, hypothyroidism, chronic kidney disease stage II. Patient can stand with the help of walker and can prevent out of her bed but is a currently bedbound and has minimal mobility. She has chronic wounds on bilateral lower extremity and a decub ulcer in the sacrum. Patient was last seen on July 11 for a large wound on her right posterior thigh that worsened very quickly which was debrided by Dr. Doss and was sent home on oral antibiotics and for wound VAC. [facility] under the care of Dr. Medina but developed a new wound possible skin tear on her right buttocks that was not there on her last Wound Center evaluation. Prednisone was tapered during that visit. Patient comes in today with increased weakness and inability to stand. Patient states that she always have an infection when she feels this. On assessment of vital patient has a temp of 97.8 pulse 85 blood pressure 111/73 saturating 98% on room air. Blood work is positive for a WBC of 11.2 and hemoglobin dropped to 7.9 platelets 505 creatinine 0.9 BUN 29 urine drug screen does suggest a large leukocyte Estrace 26 WBC concerning for UTI. Patient initiated on Rocephin and vancomycin in the ER. Infectious disease was consulted for further evaluation. 07/26/2019 patient had a bedside feels better than yesterday afebrile 98.2 pulse 87 blood pressure 118/75 no episodes of fever overnight. Labs suggestive WBC is 7.8 hemoglobins dropped to 7.3 platelet count 425 creatinine stable at 0.7 BUN improved from 29-19 today UA is positive for gram-negative bacilli final cultures are pending blood cultures have been negative so far. Continue with Rocephin and vancomycin for UTI and cellulitis of the lower extremities. Continue Santyl with moist dressing in the lower extremities. Iron panel suggest iron deficiency. Patient has history of antral ulcers. GI is consulted. Patient does complain of bloating and epigastric tenderness. 07/27: Patient was seen this morning prior to her EGD. EGD did show nonbleeding antral ulcer biopsied and no active bleeding or old blood noted. Recommendations to resume diet and continue Protonix with follow-up in the office, no further follow-up is required with GI. Hemoglobin is stable today at 8.1. She has been afebrile, heart rate 89, blood pressure 94/55, pulse ox 93% on room air. Patient denies having any chest pain. She states her weakness is a little bit better. She does complaining of legs feeling sore. Dr. Rangel is following with plan to continue Santyl and vancomycin. Patient is also on Rocephin for UTI. Urine culture is now found to be positive for Pseudomonas. Wound cultures are positive for gram-negative bacilli and Alix. Wound VAC in place for the sacral wound. Patient given 500 mL fluid bolus for low blood pressure. 07/28: Patient has been afebrile, heart rate 92, blood pressure 109/67, pulse ox 96% on room air. Repeat hemoglobin is 8.7. Patient at this time is stable for discharge however, PT and OT are recommending subacute rehab. Patient is reluctant to agree to this. She is complaining of right thigh discomfort that feels like a pulled muscle. Lidocaine gel will be added. Patient did have hypotension yesterday and fentanyl patches were removed and this will be resumed at only the 12 g. Anticipate discharge on Wednesday to rehab. Case management/social work following. 07/29: The patient denies any new complaints. She is currently on cefepime Santyl for local wound care and wound VAC. Patient is working with PT and OT. Plan for discharge to [facility] on Wednesday. Biopsy from EGD is negative for malignancy and negative for H. pylori. 07/30: The patient has no new complaints. A blood pressure in the low side and patient was complaining of lightheadedness for which a fluid bolus was given. Currently blood pressure 96/59, pulse ox 92% on room air, afebrile, heart rate 92. Patient states that she slept okay during the night. She did have a soft bowel movement, no diarrhea. 07/31: Patient has been afebrile, heart rate 86, blood pressure 102/67, pulse ox 93% on room air. Hemoglobin this morning is 7.4, platelet count 461, BUN 24 and creatinine 0.78. Patient had no events overnight. Patient will have midline placed today and transfer to [facility] once all arrangements are completed. Dr. Lemaed his advice for cefepime for 2 week course. Discharge diagnoses: 1. Generalized weakness likely secondary to sepsis and anemia 2. Sepsis secondary to Pseudomonas UTI with other possible source of infection includes the bilateral lower extremity ulcers. 3. Stage IV decubitus ulcer right buttocks. Bone scan was negative for osteomyelitis but did have cellulitis on 07/12 4. Cellulitis with Chronic lower extremity ulcers secondary to peripheral vascular disease. 5. Rheumatoid arthritis with chronic pain. 6. History of DVT. 7. Hypothyroidism. 8. Chronic kidney disease stage II, stable. 9. Acute on chronic Anemia of chronic disease. Discharge plan: [facility] under the care of Dr. Moyer. Impression and plan of care have been directed as dictated by the signing physician. Arlene Darnell nurse practitioner acting as scribe for signing physician. Patient Condition at Discharge: Good Plan - Discharge Summary Discharge Rx Participant: No New Discharge Prescriptions: New Baclofen [Lioresal] 5 mg PO BID tab Lidocaine 4% Cream [Lmx 4] 1 applic TOPICAL Q4H PRN applic PRN Reason: Pain Polyethylene Glycol 3350 [Miralax] 17 gm PO DAILY powd.pack HYDROcodone/APAP 10-325MG [Crum 10-325] 1 each PO TID #9 tab Pantoprazole [Protonix] 40 mg PO AC-BID tablet.dr Menendez-Docusate Sodium [Senokot-S] 2 each PO HS tab Cefepime HCl [Maxipime] 2 gm IVPB Q12H #28 vial Continue Levothyroxine Sodium [Synthroid] 200 mcg PO DAILY Leflunomide [Arava] 20 mg PO DAILY Rivaroxaban [Xarelto] 20 mg PO W/BRKFST Collagenase [Santyl] 1 applic TOPICAL DAILY fentaNYL 12MCG/HR PATCH [Duragesic 12MCG/HR] 1 patch TRANSDERM Q72H #1 patch Pregabalin [Lyrica] 100 mg PO BID #6 cap Discontinued fentaNYL 25MCG/HR PATCH [Duragesic 25MCG/HR] 1 patch TRANSDERM Q72H Hydrocodone/Acetaminophen [Hydrocodon-Acetaminophn 10-325] 1 tab PO TID Cefuroxime Axetil [Ceftin] 500 mg PO BID #42 tab Discharge Medication List Leflunomide [Arava] 20 mg PO DAILY 08/26/17 [History] Levothyroxine Sodium [Synthroid] 200 mcg PO DAILY 08/26/17 [History] Collagenase [Santyl] 1 applic TOPICAL DAILY 07/10/19 [History] Rivaroxaban [Xarelto] 20 mg PO W/BRKFST 07/10/19 [History] Baclofen [Lioresal] 5 mg PO BID tab 07/30/19 [Rx] Cefepime HCl [Maxipime] 2 gm IVPB Q12H #28 vial 07/30/19 [Rx] HYDROcodone/APAP 10-325MG [Crum 10-325] 1 each PO TID #9 tab 07/30/19 [Rx] Lidocaine 4% Cream [Lmx 4] 1 applic TOPICAL Q4H PRN applic 07/30/19 [Rx] Pantoprazole [Protonix] 40 mg PO AC-BID tablet. 07/30/19 [Rx] Polyethylene Glycol 3350 [Miralax] 17 gm PO DAILY powd.pack 07/30/19 [Rx] Sennosides-Docusate Sodium [Senokot-S] 2 each PO HS tab 07/30/19 [Rx] Pregabalin [Lyrica] 100 mg PO BID #6 cap 07/31/19 [Rx] fentaNYL 12MCG/HR PATCH [Duragesic 12MCG/HR] 1 patch TRANSDERM Q72H #1 patch 07/31/19 [Rx] Follow up Appointment(s)/Referral(s): Jeremiah Win MD [STAFF PHYSICIAN] - 1 Week Cierra Moyer MD [Primary Care Provider] - 1 Week (at [facility]) Jocelyn Rangel MD [STAFF PHYSICIAN] - 2 Weeks Ambulatory/Diagnostic Orders: Basic Metabolic Panel [LAB.AMB] Location: None Selected Complete Blood Count w/diff [LAB.AMB] Location: None Selected Discharge Disposition: TRANSFER TO [facility]
[2019-07-31] MEDS: POLYETHYLENE GLYCOL 3350 17 GM POWD.PACK PO SCH (09:27)
[2019-07-31] MEDS: HYDROcodone/APAP 10-325MG 1 EACH TAB PO SCH ×2 (10:00→16:28)
[2019-07-31] MEDS: BACLOFEN 10 MG TAB PO SCH (10:01)
[2019-07-31] MEDS: PANTOPRAZOLE 40 MG TABLET PO SCH (10:02)
[2019-07-31] MEDS: PREGABALIN 100 MG CAP PO SCH (10:02)
[2019-07-31] MEDS: RIVAROXABAN 20 MG TAB PO SCH (10:02)
[2019-07-31] MEDS: CEFEPIME 2 GM in SODIUM CHLORIDE 0.9% 100 ML IVPB SCH (10:02)
[2019-07-31] MEDS: COLLAGENASE 250 UNIT/GM OINTMENT 30 GM TUBE TOPICAL SCH (10:03)
[2019-07-31 13:52] VITALS: RESP 16
[2019-07-31 14:49] VITALS: BP 103/66; PULSE 85; TEMP 97.9
--- NOTE | 2019-07-31 18:33 | PN ---
PROGRESS NOTE DATE OF SERVICE: 07/31/2019 REASON FOR FOLLOW UP: Bilateral lower extremity wound cellulitis, sacral wound and UTI. INTERVAL HISTORY: The patient was seen on rounds this morning. The patient has been afebrile. She is breathing comfortably. Denies any chest pain or any cough. No nausea, vomiting. No abdominal pain or any worsening pain to the leg area. PHYSICAL EXAMINATION: Blood pressure is 103/66, pulse of 85. Temperature is 97.9. She is 90% on room air. General description is an elderly female lying in bed in no distress. Respiratory system: Unlabored breathing. Clear to auscultation anteriorly. Heart S1, S2. Regular rate and rhythm. Abdomen soft, no tenderness. Legs are currently wrapped up. No obvious drainage on the dressing. LABS: Hemoglobin is 7.4, white count 5.7, BUN of 24, creatinine 0.78. DIAGNOSTIC IMPRESSION/PLAN: 1. Patient with bilateral lower extremity venous stasis ulcer with secondary cellulitis. Local culture positive for Pseudomonas. The patient to cover with cefepime, get a midline to continue with cefepime for 2 weeks. Local wound care with Santyl. 2. Sacral pressure ulcer. Continue local wound care with wound VAC. 3. Pseudomonas urinary tract infection, being covered with cefepime the patient is on for lower extremity wound and cellulitis. MMODL / IJN: [id number] /
== END 2019-07-31 16:57 | DRG 871 ==
LOC: EC 17:09 → 6NMEDSUR 20:25 → OBSVTOIN 07-27 09:11
PROVIDERS: ADMIT Internal Medicine; ATTEND Internal Medicine
PROC: 0DB78ZX Excision of Stomach, Pylorus, Via Natural or Artificial Opening Endoscopic, Diagnostic (ICD-10-PCS; principal; 2019-07-27 07:30)
PROC: 05H933Z Insertion of Infusion Device into Right Brachial Vein, Percutaneous Approach (ICD-10-PCS; 2019-07-31 09:20)
DX: A41.52 Sepsis due to Pseudomonas (principal); L89.314 Pressure ulcer of right buttock, stage 4; L89.154 Pressure ulcer of sacral region, stage 4; D62 Acute posthemorrhagic anemia; L03.116 Cellulitis of left lower limb; L03.115 Cellulitis of right lower limb; N39.0 Urinary tract infection, site not specified; K25.9 Gastric ulcer, unspecified as acute or chronic, without hemorrhage or perforation; D63.8 Anemia in other chronic diseases classified elsewhere; E03.9 Hypothyroidism, unspecified; M06.9 Rheumatoid arthritis, unspecified; I87.2 Venous insufficiency (chronic) (peripheral); G89.29 Other chronic pain; R42 Dizziness and giddiness; I95.9 Hypotension, unspecified; N18.2 Chronic kidney disease, stage 2 (mild); M79.7 Fibromyalgia; E66.9 Obesity, unspecified; I73.9 Peripheral vascular disease, unspecified; I87.8 Other specified disorders of veins; Z79.899 Other long term (current) drug therapy; Z79.890 Hormone replacement therapy; Z79.01 Long term (current) use of anticoagulants; Z88.0 Allergy status to penicillin; Z86.718 Personal history of other venous thrombosis and embolism; Z86.14 Personal history of Methicillin resistant Staphylococcus aureus infection; Z90.49 Acquired absence of other specified parts of digestive tract; Z90.89 Acquired absence of other organs; Z98.890 Other specified postprocedural states; Z80.8 Family history of malignant neoplasm of other organs or systems; Z82.61 Family history of arthritis; Z83.79 Family history of other diseases of the digestive system; Z87.11 Personal history of peptic ulcer disease; Z68.34 Body mass index [BMI] 34.0-34.9, adult; Z74.01 Bed confinement status; Z80.6 Family history of leukemia; Z82.49 Family history of ischemic heart disease and other diseases of the circulatory system
CPT/HCPCS: 36410; 36415; 43239; 76937; 80048; 80053; 80202; 81001; 82550; 82565; 82728; 83540; 83550; 83735; 84100; 85025; 85027; 85610; 85730; 86850; 86900; 86901; 86920; 87040; 87070; 87075; 87077; 87086; 87186; 87205; 88305; 93005; 96361; 96365; 96366; 96367; 96375; 96376; 99285

== ENCOUNTER 2019-09-03 14:46 | Inpatient (IN) | payer MEDICARE ==
[2019-09-03] MEDS ORDERED: SODIUM CHLORIDE 0.9% 1,000 ML IV ONE (15:40)
[2019-09-03 16:38] LABS: Appearance,Urine Cloudy (Clear); Bacteria,Urine Rare /hpf; Bilirubin,Urine Negative (Negative); Blood,Urine Moderate (Negative); Budding Yeast,Urine Few /hpf; Color,Urine Yellow; Glucose,Urine (UA) Negative (Negative); Ketones,Urine Negative (Negative); Leukocyte Esterase,Urine Large (Negative); Mucus,Urine Rare /hpf; Nitrite,Urine Negative (Negative); PH, Urine 5.5 (5.0-8.0); Protein,Urine 2+ (Negative); RBC,Urine 9 /hpf (0-5); Specific Gravity,Urine 1.022 (1.001-1.035); Squamous Epithelial Cell,Urine 3 /hpf (0-4); Urobilinogen,Urine <2.0 mg/dL (<2.0); WBC,Urine 20 /hpf (0-5)
--- NOTE | 2019-09-03 17:23 | ED ---
General Adult HPI <Armond Perez - Last Filed: 09/03/19 18:17> - General Source: EMS Mode of arrival: EMS Limitations: no limitations <Vernell Wallace - Last Filed: 09/09/19 19:07> - General Chief complaint: Recheck/Abnormal Lab/Rx Stated complaint: hypotension, +Flu B Time Seen by Provider: 09/03/19 14:50 - History of Present Illness Initial comments: The patient is a 69-year-old female with multiple medical conditions who presents to the emergency room from [facility]. The patient originally was hospitalized there at the beginning of July. She states that she had weakness at that time and was going to rehab to build up her strength. Since she has been a resident at [facility] she has developed pressure ulcers, pneumonia and as of 2 days ago was diagnosed with influenza. She does have chronic bilateral lower extremity open wounds. States that she's been receiving wound care. The wounds had worsening drainage and swelling. She admits to feeling generally weak. She is currently receiving antibiotic treatment for pneumonia and urinary tract infection. She was placed on Tamiflu for the recently diagnosed influenza. Laboratory studies obtained today demonstrated a falling hemoglobin. She does have a history of gastric ulcers. Vital signs obtained demonstrates patient's blood pressure was low therefore they did recommend transfer to the hospital. The patient denies any pain. No chest pain or shortness of breath. No abdominal pain. There are no alleviating, precipit ating or modifying factors (Vernell Wallace) - Related Data Home Medications Medication Instructions Recorded Confirmed Leflunomide [Arava] 20 mg PO DAILY@0800 08/26/17 09/03/19 Levothyroxine Sodium [Synthroid] 200 mcg PO DAILY@0600 08/26/17 09/03/19 Rivaroxaban [Xarelto] 20 mg PO DAILY@0800 07/10/19 09/03/19 Acetaminophen [Tylenol] 650 mg PO Q4H PRN 09/03/19 09/03/19 Baclofen [Lioresal] 5 mg PO BID@0800,1700 09/03/19 09/03/19 Bisacodyl [Dulcolax] 10 mg RECTAL DAILY PRN 09/03/19 09/03/19 Ferrous Sulfate [Feosol] 325 mg PO DAILY@1700 09/03/19 09/03/19 Furosemide [Lasix] 20 mg PO DAILY@0800 09/03/19 09/03/19 Ipratropium-Albuterol Nebulize 3 ml INHALATION RT-Q8H PRN 09/03/19 09/03/19 [Duoneb 0.5 mg-3 mg/3 ml Soln] Evelio Packet 1 packet PO BID-W/MEALS 09/03/19 09/03/19 L.acidoph,Paracasei, B.lactis 1 cap PO DAILY@1100 09/03/19 09/03/19 [Probiotic] Liquacel Supplement Drink 30 ml PO DAILY@1200 09/03/19 09/03/19 Magnesium Hydroxide [Milk of 2,400 mg PO DAILY PRN 09/03/19 09/03/19 Magnesia] Na Phos,M-B/Na Phos,Di-Ba [Fleet 133 ml RECTAL ONCE PRN 09/03/19 09/03/19 Adult] Ondansetron [Zofran] 4 mg PO Q8H PRN 09/03/19 09/03/19 Pantoprazole [Protonix] 40 mg PO BID@0800,1700 09/03/19 09/03/19 Polyethylene Glycol 3350 [Miralax] 17 gm PO DAILY@0800 09/03/19 09/03/19 Potassium Chloride 10 meq PO DAILY@1700 09/03/19 09/03/19 Sennosides-Docusate Sodium 2 each PO HS PRN 09/03/19 09/03/19 [Senokot-S] Triamcinolone 0.1% Cream [Kenalog 1 applicatio TOPICAL BID PRN 09/03/19 09/03/19 0.1% Cream] guaiFENesin [Mucinex] 1,200 mg PO Q12H PRN 09/03/19 09/03/19 Previous Rx's Medication Instructions Recorded Lidocaine 4% Cream [Lmx 4] 1 applic TOPICAL Q4H PRN applic 07/30/19 Cefepime HCl [Maxipime] 2 gm IVPB Q12H #84 vial 09/06/19 HYDROcodone/APAP 10-325MG [Brunswick 1 tab PO Q8H PRN #9 tab 09/07/19 10-325] Midodrine [ProAmatine] 10 mg PO AC-TID tab 02/13/20 Pregabalin [Lyrica] 100 mg PO BID@0800,2100 #6 cap 09/07/19 Sucralfate [Carafate] 1 gm PO AC-TID #90 tab 09/07/19 fentaNYL 12MCG/HR PATCH [Duragesic 1 patch TRANSDERM Q72H #1 patch 09/07/19 12MCG/HR] Allergies Allergy/AdvReac Type Severity Reaction Status Date / Time Penicillins Allergy Rash/Hives Verified 09/03/19 19:00 Review of Systems ROS Other: All systems not noted in ROS Statement are negative. <Armond Perez - Last Filed: 09/03/19 18:17> ROS Other: All systems not noted in ROS Statement are negative. <Vernell Wallace - Last Filed: 09/09/19 19:07> ROS Statement: Those systems with pertinent positive or pertinent negative responses have been documented in the HPI. Past Medical History Past Medical History: Deep Vein Thrombosis (DVT), Fibromyalgia, Rheumatoid Arthritis (RA), Skin Disorder, Thyroid Disorder Additional Past Medical History / Comment(s): "LEAKY BLADDER" ,"POOR CIRCULATION", HX Wound rt foot 3rd toe, bunion on left foot, PAST RT HIP FX-NO SX DONE. History of Any Multi-Drug Resistant Organisms: MRSA Date of last positivie culture/infection: 02/17/18 MDRO Source:: Leg: lower right Past Surgical History: Appendectomy, Cholecystectomy, Tonsillectomy Additional Past Surgical History / Comment(s): Left foot wound debridement. Nodule removed from thyroid. sinus surgery. surgical excision and debridment of sacrum with wound VAC placement on 08/05/15 and sx done(flap) that developed pin hole leak -had 2nd sx to repair". Debridement wound care to right lower extremity wound on 08/21/15. Past Anesthesia/Blood Transfusion Reactions: No Reported Reaction Past Psychological History: No Psychological Hx Reported Smoking Status: Never smoker Past Alcohol Use History: None Reported Past Drug Use History: None Reported - Past Family History Mother Family Medical History: AFIB, Cancer Additional Family Medical History / Comment(s): Past away. skin cancer Father Family Medical History: Liver Disease, Rheumatoid Arthritis (RA) Additional Family Medical History / Comment(s): Leukemia. at age 72 of liver problem. <Vernell Wallace - Last Filed: 09/09/19 19:07> General Exam Limitations: no limitations General appearance: alert, in no apparent distress Head exam: Present: atraumatic, normocephalic, normal inspection Eye exam: Present: normal appearance, PERRL, EOMI. Absent: scleral icterus, conjunctival injection, periorbital swelling ENT exam: Present: normal exam, mucous membranes moist Neck exam: Present: normal inspection. Absent: tenderness, meningismus, lymphadenopathy Respiratory exam: Present: wheezes, rales, decreased breath sounds. Absent: normal lung sounds bilaterally, respiratory distress Cardiovascular Exam: Present: regular rate, normal rhythm, normal heart sounds. Absent: systolic murmur, diastolic murmur, rubs, gallop, clicks GI/Abdominal exam: Present: soft, normal bowel sounds. Absent: distended, tenderness, guarding, rebound, rigid Extremities exam: Present: other (cellilitis b/l le. Open weeping wounds left lateral calf. ) <Vernell Wallace - Last Filed: 09/09/19 19:07> Course Vital Signs 09/03/19 09/03/19 09/03/19 14:51 16:36 17:47 Temperature 98.5 F Pulse Rate 82 79 80 Respiratory 18 18 18 Rate Blood Pressure 99/57 100/66 108/56 O2 Sat by Pulse 100 97 98 Oximetry 09/03/19 09/03/19 09/03/19 18:45 19:33 19:56 Temperature 98.4 F 98.9 F Pulse Rate 89 87 86 Respiratory 18 18 17 Rate Blood Pressure 96/65 101/85 100/53 O2 Sat by Pulse 95 98 98 Oximetry EKG Findings - EKG Comments: EKG Findings:: EKG demonstrates a normal sinus rhythm with a ventricular rate of 82. NE interval 176. QRS 80. QTC of 420. No acute ST segment elevations or depressions concerning for ischemic changes <Vernell Wallace - Last Filed: 09/09/19 19:07> Medical Decision Making - Lab Data Result diagrams: 09/03/19 17:15 09/03/19 17:15 <Armond Perez - Last Filed: 09/03/19 18:17> - Lab Data Result diagrams: 09/07/19 09:10 09/07/19 09:10 <Vernell Wallace - Last Filed: 09/09/19 19:07> - Medical Decision Making Patient's care was signed out at shift change awaiting laboratory testing. Patient has improved hemoglobin from recent baseline of 7.2 at 8.4. She has no leukocytosis, white blood cell count is 5.5. Lactic acid normal 1.3. Chest x- ray showing pulmonary edema. Patient's blood pressure is marginal, will avoid aggressive IV hydration given the heart failure and pulmonary edema. She was started on antibiotics including Levaquin and vancomycin. I did discuss case with the admitting physician Dr. Wilson who will accept admission. Recommends 50 mL of normal saline per hour. Recommends continuing Tamiflu and Midrin. (Armond Perez) - Lab Data Lab Results 09/03/19 09/03/19 09/03/19 Range/Units 16:16 17:15 17:15 WBC 5.5 (3.8-10.6) k/uL RBC 3.16 L (3.80-5.40) m/uL Hgb 8.4 L (11.4-16.0) gm/dL Hct 28.9 L (34.0-46.0) % MCV 91.5 (80.0-100.0) fL MCH 26.7 (25.0-35.0) pg MCHC 29.2 L (31.0-37.0) g/dL RDW 17.2 H (11.5-15.5) % Plt Count 299 (150-450) k/uL Neutrophils % 61 % Lymphocytes % 21 % Monocytes % 9 % Eosinophils % 5 % Basophils % 2 % Neutrophils # 3.3 (1.3-7.7) k/uL Lymphocytes # 1.2 (1.0-4.8) k/uL Monocytes # 0.5 (0-1.0) k/uL Eosinophils # 0.3 (0-0.7) k/uL Basophils # 0.1 (0-0.2) k/uL Hypochromasia Marked Anisocytosis Slight PT (9.0-12.0) sec INR (<1.2) APTT (22.0-30.0) sec Sodium (137-145) mmol/L Potassium (3.5-5.1) mmol/L Chloride (98-107) mmol/L Carbon Dioxide (22-30) mmol/L Anion Gap mmol/L BUN (7-17) mg/dL Creatinine (0.52-1.04) mg/dL Est GFR (CKD-EPI)AfAm (>60 ml/min/1.73 sqM) Est GFR (CKD-EPI)NonAf (>60 ml/min/1.73 sqM) Glucose (74-99) mg/dL Plasma Lactic Acid Darryl (0.7-2.0) mmol/L Calcium (8.4-10.2) mg/dL Total Bilirubin (0.2-1.3) mg/dL AST (14-36) U/L ALT (4-34) U/L Alkaline Phosphatase (38-126) U/L Creatine Kinase (30-135) U/L Total Protein (6.3-8.2) g/dL Albumin (3.5-5.0) g/dL TSH (0.465-4.680) mIU/L Free T4 (0.78-2.19) ng/dL Cortisol ug/dL Urine Color Yellow Urine Appearance Cloudy H (Clear) Urine pH 5.5 (5.0-8.0) Ur Specific [place] 1.022 (1.001-1.035) Urine Protein 2+ H (Negative) Urine Glucose (UA) Negative (Negative) Urine Ketones Negative (Negative) Urine Blood Moderate H (Negative) Urine Nitrite Negative (Negative) Urine Bilirubin Negative (Negative) Urine Urobilinogen <2.0 (<2.0) mg/dL Ur Leukocyte Esterase Large H (Negative) Urine RBC 9 H (0-5) /hpf Urine WBC 20 H (0-5) /hpf Ur Squamous Epith Cells 3 (0-4) /hpf Urine Bacteria Rare H (None) /hpf Urine Mucus Rare H (None) /hpf Urine Yeast (Budding) Few H (None) /hpf Blood Type B Positive Blood Type Recheck B Pos Bld Type Recheck Status No Antibody Screen NEGATIVE Spec Expiration Date 09/06/2019 - 231409/03/19 09/03/19 09/03/19 Range/Units 17:15 17:15 17:15 WBC (3.8-10.6) k/uL RBC (3.80-5.40) m/uL Hgb (11.4-16.0) gm/dL Hct (34.0-46.0) % MCV (80.0-100.0) fL MCH (25.0-35.0) pg MCHC (31.0-37.0) g/dL RDW (11.5-15.5) % Plt Count (150-450) k/uL Neutrophils % % Lymphocytes % % Monocytes % % Eosinophils % % Basophils % % Neutrophils # (1.3-7.7) k/uL Lymphocytes # (1.0-4.8) k/uL Monocytes # (0-1.0) k/uL Eosinophils # (0-0.7) k/uL Basophils # (0-0.2) k/uL Hypochromasia Anisocytosis PT 15.0 H (9.0-12.0) sec INR 1.5 H (<1.2) APTT 46.5 H (22.0-30.0) sec Sodium 133 L (137-145) mmol/L Potassium 4.4 (3.5-5.1) mmol/L Chloride 103 (98-107) mmol/L Carbon Dioxide 26 (22-30) mmol/L Anion Gap 4 mmol/L BUN 22 H (7-17) mg/dL Creatinine 0.81 (0.52-1.04) mg/dL Est GFR (CKD-EPI)AfAm 85 (>60 ml/min/1.73 sqM) Est GFR (CKD-EPI)NonAf 74 (>60 ml/min/1.73 sqM) Glucose 72 L (74-99) mg/dL Plasma Lactic Acid Darryl 1.3 (0.7-2.0) mmol/L Calcium 7.7 L (8.4-10.2) mg/dL Total Bilirubin 0.6 (0.2-1.3) mg/dL AST 26 (14-36) U/L ALT 6 (4-34) U/L Alkaline Phosphatase 93 (38-126) U/L Creatine Kinase 22 L (30-135) U/L Total Protein 5.5 L (6.3-8.2) g/dL Albumin 2.4 L (3.5-5.0) g/dL TSH 0.348 L (0.465-4.680) mIU/L Free T4 2.15 (0.78-2.19) ng/dL Cortisol 13 ug/dL Urine Color Urine Appearance (Clear) Urine pH (5.0-8.0) Ur Specific [place] (1.001-1.035) Urine Protein (Negative) Urine Glucose (UA) (Negative) Urine Ketones (Negative) Urine Blood (Negative) Urine Nitrite (Negative) Urine Bilirubin (Negative) Urine Urobilinogen (<2.0) mg/dL Ur Leukocyte Esterase (Negative) Urine RBC (0-5) /hpf Urine WBC (0-5) /hpf Ur Squamous Epith Cells (0-4) /hpf Urine Bacteria (None) /hpf Urine Mucus (None) /hpf Urine Yeast (Budding) (None) /hpf Blood Type Blood Type Recheck Bld Type Recheck Status Antibody Screen Spec Expiration Date Disposition Is patient prescribed a controlled substance at d/c from ED?: No Decision to Admit Reason: Admit from EC Decision Date: 09/03/19 Decision Time: 18:20 <Armond Perez - Last Filed: 09/03/19 18:17> <Vernell Wallace - Last Filed: 09/09/19 19:07> Clinical Impression: Urinary tract infection, Sepsis, Venous stasis dermatitis of right lower extremity, Wound infection, Influenza Disposition: ADMITTED IP TO THIS HOSP Condition: Good
--- NOTE | 2019-09-03 17:27 | XR ---
EXAMINATION TYPE: XR chest 2V DATE OF EXAM: 09/03/2019 COMPARISON: 02/17/2019 HISTORY: Shortness of breath and pneumonia TECHNIQUE: Frontal and lateral views of the chest are obtained. FINDINGS: Retrocardiac opacity is seen over the lower spine on the lateral image. Diffuse interstiti al prominence is new from the prior. Enlarged cardiac mediastinal silhouette. Diffuse osseous deminer alization. IMPRESSION: Retrocardiac opacity may represent atelectasis or pneumonia. Diffuse interstitial promin ence is new from the prior. Consider cardiogenic fluid overload given the enlarged cardiac mediastina l silhouette.
--- NOTE | 2019-09-03 17:30 | XR ---
EXAMINATION TYPE: XR tibia fibula bilateral DATE OF EXAM: 09/03/2019 CLINICAL HISTORY: Open wounds of the bilateral lower extremities TECHNIQUE: Two views of the bilateral tibia and fibula were obtained. COMPARISON: None. FINDINGS: No acute fracture seen of either tibia nor fibula. Numerous calcifications are seen of the skin and soft tissue overlying the mid to lower right and left lower extremities. Proximal moderate s ubcutaneous edema. Severe arthropathy of both knees and diffuse osseous demineralization bilaterally. No focal periosteal reaction is seen of the osseous structures. No osseous erosion. IMPRESSION: 1. Bilateral lower extremity subcutaneous edema and calcified subcutaneous tissues and skin surface i s that may be related to chronic infection or dermatomyositis. No radiographic sequela of focal osteo myelitis. Diffuse osseous demineralization is seen.
[2019-09-03 17:36] LABS: Anisocytosis Slight; Basophils # (A) 0.1 k/uL (0-0.2); Basophils % (A) 2 %; Eosinophils # (A) 0.3 k/uL (0-0.7); Eosinophils % (A) 5 %; HCT 28.9 % (34.0-46.0); HGB 8.4 gm/dL (11.4-16.0); Hypochromasia Marked; Lymphocytes # (A) 1.2 k/uL (1.0-4.8); Lymphocytes % (A) 21 %; MCH 26.7 pg (25.0-35.0); MCHC 29.2 g/dL (31.0-37.0); MCV 91.5 fL (80.0-100.0); Mean Platelet Volume 8.6; Monocytes # (A) 0.5 k/uL (0-1.0); Monocytes % (A) 9 %; Neutrophils # (A) 3.3 k/uL (1.3-7.7); Neutrophils % (A) 61 %; Platelet Count 299 k/uL (150-450); RBC 3.16 m/uL (3.80-5.40); RDW 17.2 % (11.5-15.5); WBC 5.5 k/uL (3.8-10.6)
[2019-09-03] MEDS ORDERED: VANCOMYCIN IV PER PHARMACY 1 EACH MISC MISCELLANE PRN (17:40)
[2019-09-03] MEDS ORDERED: LEVOFLOXACIN 750MG-D5W PMX 750 MG in DEXTROSE/WATER 1 150ML.BAG IVPB STA (17:40)
[2019-09-03 17:46] LABS: Albumin 2.4 g/dL (3.5-5.0); Calcium 7.7 mg/dL (8.4-10.2); Potassium 4.4 mmol/L (3.5-5.1); Total Bilirubin 0.6 mg/dL (0.2-1.3); Total Protein 5.5 g/dL (6.3-8.2)
[2019-09-03 17:50] LABS: INR 1.5 (<1.2); Partial Thromboplastin Time 46.5 sec (22.0-30.0)
[2019-09-03] MEDS ORDERED: NALOXONE 0.4 MG/ML 1 ML VIAL IV PRN (18:12)
[2019-09-03 18:43] LABS: T4, Free (Free Thyroxine) 2.15 ng/dL (0.78-2.19)
[2019-09-03] MEDS ORDERED: VANCOMYCIN 1,500 MG in SODIUM CHLORIDE 0.9% 250 ML IVPB ONE (19:00)
[2019-09-03] MEDS: SODIUM CHLORIDE 0.9% 1,000 ML IV SCH (19:00)
[2019-09-03] MEDS ORDERED: IPRATROPIUM-ALBUTEROL 3 ML NEB INHALATION PRN (19:27)
[2019-09-03] MEDS ORDERED: SENNOSIDES-DOCUSATE SODIUM 1 EACH TAB PO PRN (21:28)
[2019-09-03] MEDS ORDERED: BISACODYL 10 MG SUPP RECTAL PRN (21:28)
[2019-09-03] MEDS ORDERED: MAGNESIUM HYDROXIDE 2,400 MG/10 ML CUP PO PRN (21:28)
[2019-09-03] MEDS ORDERED: ACETAMINOPHEN TAB 325 MG TAB PO PRN (21:28)
[2019-09-03] MEDS ORDERED: guaiFENesin 600 MG TABLET.ER PO PRN (21:28)
[2019-09-03] MEDS ORDERED: TRIAMCINOLONE 0.1% CREAM 80 GM TUBE TOPICAL PRN (22:00)
[2019-09-03] MEDS ORDERED: OSELTAMIVIR 75 MG CAP PO SCH (22:00)
[2019-09-04] MEDS: MIDODRINE 5 MG TAB PO SCH ×4 (00:50→16:37)
[2019-09-04] MEDS: OSELTAMIVIR 75 MG CAP PO SCH ×3 (00:50→20:41)
[2019-09-04] MEDS ORDERED: LEVOTHYROXINE 100 MCG TAB PO SCH (06:00)
[2019-09-04] MEDS ORDERED: JUVEN PO SCH (07:30)
[2019-09-04] MEDS: PANTOPRAZOLE 40 MG TABLET PO SCH ×2 (07:55→16:37)
[2019-09-04] MEDS: RIVAROXABAN 20 MG TAB PO SCH (07:55)
[2019-09-04] MEDS: FUROSEMIDE 20 MG TAB PO SCH (07:55)
[2019-09-04] MEDS: BACLOFEN 10 MG TAB PO SCH ×2 (07:55→16:36)
[2019-09-04] MEDS: POLYETHYLENE GLYCOL 3350 17 GM POWD.PACK PO SCH (07:55)
[2019-09-04] MEDS: PREGABALIN 100 MG CAP PO SCH ×2 (07:55→20:41)
[2019-09-04] MEDS: LACTOBACILLUS ACIDOPH & BULGAR 1 EACH PACKET PO SCH (07:56)
[2019-09-04] MEDS: ONDANSETRON 4 MG TAB PO PRN (07:59)
[2019-09-04 08:28] LABS: Anisocytosis Slight; Basophils % (A) 1 %; Eosinophils # (A) 0.2 k/uL (0-0.7); Eosinophils % (A) 4 %; HCT 25.1 % (34.0-46.0); HGB 7.4 gm/dL (11.4-16.0); Hypochromasia Marked; Lymphocytes # (A) 0.4 k/uL (1.0-4.8); Lymphocytes % (A) 10 %; MCH 26.5 pg (25.0-35.0); MCHC 29.6 g/dL (31.0-37.0); MCV 89.8 fL (80.0-100.0); Mean Platelet Volume 9.1; Monocytes # (A) 0.3 k/uL (0-1.0); Monocytes % (A) 6 %; Neutrophils # (A) 3.5 k/uL (1.3-7.7); Neutrophils % (A) 78 %; Platelet Count 267 k/uL (150-450); RDW 17.3 % (11.5-15.5); WBC 4.6 k/uL (3.8-10.6)
--- NOTE | 2019-09-04 09:42 | XR ---
EXAMINATION TYPE: XR sacrum coccyx DATE OF EXAM: 09/04/2019 COMPARISON: NONE HISTORY: Nonhealing wound Three views are submitted. Severe arthropathy of the left hip joint with marked deformity of the acet abulum and femoral head. Appears to be erosive change involving the inferior margin of the right pubi c ramus. Diffuse osteopenia noted. Calcifications in the pelvis likely vascular. Degenerative change lower lumbar spine. Lucency involving the coccyx noted. Assessment of the SI joints limited. IMPRESSION: 1. There is erosive change involving the inferior margin of the right inferior pubic ramus correlate for osteomyelitis. 2. Limited assessment of the coccyx with lucency of near the terminal segment could be correlated wit h bone scan for possible osteomyelitis.
[2019-09-04 10:46] VITALS: BMI 35.4
--- NOTE | 2019-09-04 10:54 | P.HPIM ---
History of Present Illness H&P Date: 09/04/19 This is a 69-year-old female patient of Dr. Moyer currently at [facility] with past medical history of rheumatoid arthritis, hypothyroidism, DVT, fibromyalgia, multiple decubitus ulcer, MRSA infection, previous admission for GI bleed secondary to antral ulcer, gastritis and duodenitis requiring blood transfusion, hypothyroidism, chronic kidney disease stage II. Patient was recently hospitalized in early July which time she was treated for sepsis secondary to Pseudomonas UTI and bilateral lower extremity ulcers, stage IV decubitus ulcers the right buttocks and the bone scan was negative for osteomyelitis, acute on chronic anemia of chronic disease. She underwent EGD that did show nonbleeding antral ulcer biopsied and no active bleeding or old blood noted. Biopsy from EGD was negative for malignancy and negative for H. pylori. Wound VAC was applied to the sacral wound and patient was stabilized and discharged to [facility] for subacute rehab. Patient now presents from [facility] to [facility] emergency center due to weakness. She has been treated for UTI and influenza diagnosed 2 days ago. Patient was on Avelox for 10 day course, started Tamiflu on Wednesday. S he continues to have chronic lower extremity wounds with worsening drainage and swelling patient blood pressure was low. Initial blood pressure in the emergency center was 99/57 with a heart rate of 82, patient's been afebrile, pulse ox 100%. EKG was a sinus rhythm with no acute ST changes. WBC 8.4, WBC 5.5, platelet count 299. Sodium 133, potassium 4.4, chloride 103, CO2 26, BUN 22 and creatinine 0.81, blood sugar 72. Lactic acid 1.3. Urinalysis cloudy, leukoesterase large, nitrate negative, blood moderate, RBCs 9, WBC 20, squamous cells 3. Liver function tests normal, CK 22, albumin 2.4. Chest x-ray showing pulmonary edema. Patient was started on IV antibiotics with Levaquin and v ancomycin and continued on Tamiflu, consult with Dr. Rangel. Past Medical History Past Medical History: Deep Vein Thrombosis (DVT), Fibromyalgia, Rheumatoid A rthritis (RA), Skin Disorder, Thyroid Disorder Additional Past Medical History / Comment(s): "LEAKY BLADDER" ,"POOR CIRCULATION", HX Wound rt foot 3rd toe, bunion on left foot, PAST RT HIP FX-NO SX DONE. wound vac on right buttock, multiple leg wounds History of Any Multi-Drug Resistant Organisms: MRSA Date of last positivie culture/infection: 02/17/18 MDRO Source:: Leg: lower right Past Surgical History: Appendectomy, Cholecystectomy, Tonsillectomy Additional Past Surgical History / Comment(s): Left foot wound debridement. Nodule removed from thyroid. sinus surgery. surgical excision and debridment of sacrum with wound VAC placement on 08/05/15 and sx done(flap) that developed pin hole leak -had 2nd sx to repair". Debridement wound care to right lower extremity wound on 08/21/15. Past Anesthesia/Blood Transfusion Reactions: No Reported Reaction Past Psychological History: No Psychological Hx Reported Additional Psychological History / Comment(s): pt lives [facility] Smoking Status: Never smoker Past Alcohol Use History: None Reported Past Drug Use History: None Reported - Past Family History Mother Family Medical History: AFIB, Cancer Additional Family Medical History / Comment(s): Past away. skin cancer Father Family Medical History: Liver Disease, Rheumatoid Arthritis (RA) Additional Family Medical History / Comment(s): Leukemia. at age 72 of liver problem. Medications and Allergies Home Medications Medication Instructions Recorded Confirmed Type Leflunomide [Arava] 20 mg PO DAILY@0800 08/26/17 09/03/19 History Levothyroxine Sodium [Synthroid] 200 mcg PO DAILY@0600 08/26/17 09/03/19 History Rivaroxaban [Xarelto] 20 mg PO DAILY@0800 07/10/19 09/03/19 History Lidocaine 4% Cream [Lmx 4] 1 applic TOPICAL Q4H PRN applic 07/30/19 09/03/19 Rx fentaNYL 12MCG/HR PATCH [Duragesic 1 patch TRANSDERM Q72H #1 patch 07/31/19 09/03/19 Rx 12MCG/HR] Acetaminophen [Tylenol] 650 mg PO Q4H PRN 09/03/19 09/03/19 History Baclofen [Lioresal] 5 mg PO BID@0800,1700 09/03/19 09/03/19 History Bisacodyl [Dulcolax] 10 mg RECTAL DAILY PRN 09/03/19 09/03/19 History Ferrous Sulfate [Feosol] 325 mg PO DAILY@1700 09/03/19 09/03/19 History Furosemide [Lasix] 20 mg PO DAILY@0800 09/03/19 09/03/19 History HYDROcodone/APAP 10-325MG [[place] 1 tab PO Q8H PRN 09/03/19 09/03/19 History 10-325] Ipratropium-Albuterol Nebulize 3 ml INHALATION RT-Q8H PRN 09/03/19 09/03/19 History [Duoneb 0.5 mg-3 mg/3 ml Soln] Evelio Packet 1 packet PO BID-W/MEALS 09/03/19 09/03/19 History L.acidoph,Paracasei, B.lactis 1 cap PO DAILY@1100 09/03/19 09/03/19 History [Probiotic] Liquacel Supplement Drink 30 ml PO DAILY@1200 09/03/19 09/03/19 History Magnesium Hydroxide [Milk of 2,400 mg PO DAILY PRN 09/03/19 09/03/19 History Magnesia] Midodrine HCl [ProAmatine] 10 mg PO BID 09/03/19 09/03/19 History Moxifloxacin HCl [Avelox] 400 mg PO DAILY@169909/03/19 09/03/19 History Na Phos,M-B/Na Phos,Di-Ba [Fleet 133 ml RECTAL ONCE PRN 09/03/19 09/03/19 History Adult] Ondansetron [Zofran] 4 mg PO Q8H PRN 09/03/19 09/03/19 History Oseltamivir [Tamiflu] 75 mg PO Q12HR 09/03/19 09/03/19 History Pantoprazole [Protonix] 40 mg PO BID@0800,1700 09/03/19 09/03/19 History Polyethylene Glycol 3350 [Miralax] 17 gm PO DAILY@0800 09/03/19 09/03/19 History Potassium Chloride 10 meq PO DAILY@169909/03/19 09/03/19 History Pregabalin [Lyrica] 100 mg PO BID@0800,2100 09/03/19 09/03/19 History Sennosides-Docusate Sodium 2 each PO HS PRN 09/03/19 09/03/19 History [Senokot-S] Triamcinolone 0.1% Cream [Kenalog 1 applicatio TOPICAL BID PRN 09/03/19 09/03/19 History 0.1% Cream] guaiFENesin [Mucinex] 1,200 mg PO Q12H PRN 09/03/19 09/03/19 History Allergies Allergy/AdvReac Type Severity Reaction Status Date / Time Penicillins Allergy Rash/Hives Verified 09/03/19 19:00 Physical Exam Vitals: Vital Signs Temp Pulse Pulse Resp BP BP Pulse Ox 09/04/19 06:32 96.9 F L 84 16 98/50 91 L 09/04/19 00:25 18 09/03/19 20:37 97.1 F L 88 18 108/55 100 09/03/19 19:56 98.9 F 86 17 100/53 98 09/03/19 19:33 87 18 101/85 98 09/03/19 18:45 98.4 F 89 18 96/65 95 09/03/19 17:47 80 18 108/56 98 09/03/19 16:36 79 18 100/66 97 09/03/19 14:51 98.5 F 82 18 99/57 100 Intake and Output 09/03/19 09/04/19 09/04/19 22:59 06:59 14:59 Intake Total 600 Balance 600 Intake: Intake, IV Titration 350 Amount Levofloxacin 750Mg-D5w 100 Pmx 750 mg In Dextrose/ Water 1 150ml.bag @ 100 mls/hr IVPB Q24H [facility]ANY Rx#: [id number] Vancomycin 1,500 mg In 250 Sodium Chloride 0.9% 250 ml @ 125 mls/hr IVPB Q12H HANY Rx#:[id number] Oral 250 Other: Voiding Method Diaper # Voids 1 Weight 109 kg Gen: This is an obese 69-year-old female.patient is resting in bed and appears to be comfortable and in no acute distress. HEENT: Head is atraumatic, normocephalic. Pupils equal, round. Sclerae is anicteric. oral mucous membranes moist. NECK: Supple. No JVD. No lymphadenopathy. No thyromegaly. LUNGS: Clear to auscultation. No wheezes or rhonchi. No intercostal retractions. HEART: Regular rate and rhythm. No murmur. ABDOMEN: Soft. Obese. Bowel sounds are present. No masses. No tenderness. EXTREMITIES: dressings to the lower extremities not removed. There is a large open wound on right buttocks with necrotic tissue andmild surrounding erythema. minimal active drainage. Patient also has 2 small wound distally. She also has multiple smaller wounds to bilateral lower legs. bowel order noted. Please see nursing documentation for detail. Significant nodular deformities bilateral hands secondary to rheumatoid arthritis. NEUROLOGICAL: Patient is awake, alert and oriented x3. Cranial nerves 2 through 12 are grossly intact. Results CBC & Chem 7: 09/04/19 07:23 09/03/19 17:15 Labs: Abnormal Lab Results - Last 24 Hours (Table) 09/03/19 09/03/19 09/03/19 Range/Units 16:16 17:15 17:15 RBC 3.16 L (3.80-5.40) m/uL Hgb 8.4 L (11.4-16.0) gm/dL Hct 28.9 L (34.0-46.0) % MCHC 29.2 L (31.0-37.0) g/dL RDW 17.2 H (11.5-15.5) % Lymphocytes # (1.0-4.8) k/uL PT 15.0 H (9.0-12.0) sec INR 1.5 H (<1.2) APTT 46.5 H (22.0-30.0) sec Sodium (137-145) mmol/L BUN (7-17) mg/dL Glucose (74-99) mg/dL Calcium (8.4-10.2) mg/dL Creatine Kinase (30-135) U/L Total Protein (6.3-8.2) g/dL Albumin (3.5-5.0) g/dL TSH (0.465-4.680) mIU/L Urine Appearance Cloudy H (Clear) Urine Protein 2+ H (Negative) Urine Blood Moderate H (Negative) Ur Leukocyte Esterase Large H (Negative) Urine RBC 9 H (0-5) /hpf Urine WBC 20 H (0-5) /hpf Urine Bacteria Rare H (None) /hpf Urine Mucus Rare H (None) /hpf Urine Yeast (Budding) Few H (None) /hpf 09/03/19 09/04/19 Range/Units 17:15 07:23 RBC 2.80 L (3.80-5.40) m/uL Hgb 7.4 L (11.4-16.0) gm/dL Hct 25.1 L (34.0-46.0) % MCHC 29.6 L (31.0-37.0) g/dL RDW 17.3 H (11.5-15.5) % Lymphocytes # 0.4 L (1.0-4.8) k/uL PT (9.0-12.0) sec INR (<1.2) APTT (22.0-30.0) sec Sodium 133 L (137-145) mmol/L BUN 22 H (7-17) mg/dL Glucose 72 L (74-99) mg/dL Calcium 7.7 L (8.4-10.2) mg/dL Creatine Kinase 22 L (30-135) U/L Total Protein 5.5 L (6.3-8.2) g/dL Albumin 2.4 L (3.5-5.0) g/dL TSH 0.348 L (0.465-4.680) mIU/L Urine Appearance (Clear) Urine Protein (Negative) Urine Blood (Negative) Ur Leukocyte Esterase (Negative) Urine RBC (0-5) /hpf Urine WBC (0-5) /hpf Urine Bacteria (None) /hpf Urine Mucus (None) /hpf Urine Yeast (Budding) (None) /hpf Microbiology - Last 24 Hours (Table) 09/03/19 16:30 Gram Stain - Preliminary Leg - Left Wound Culture - Preliminary 09/03/19 16:16 Urine Culture - Preliminary Urine,Voided Thrombosis Risk Factor Assmnt - Choose All That Apply Any of the Below Risk Factors Present?: Yes Each Factor Represents 1 point: Abnormal pulmonary function (COPD), Obesity (BMI >25), Swollen legs (current) Other Risk Factors: Yes Each Risk Factor Represents 2 Points: Age 61-74 years, Patient confined to bed Thrombosis Risk Factor Assessment Total Risk Factor Score: 7 Thrombosis Risk Factor Assessment Level: High Risk Assessment and Plan Plan: 1. Stage 2 decubitus ulcer sacrum, right buttocks unstageable decubitus ulcer, present on admission. Consult with Dr. Rangel. Patient is currently on Levaquin and vancomycin. Sacral x-ray ordered. Wound culture in progress. Continue local wound care. Midline ordered for IV access. IV Lasix added. Wound VAC in place. 2. Chronic bilateral lower extremity ulcers and cellulitis secondary to peripheral vascular disease, right heel unstageable, present on admission. 3. Influenza A and B diagnosed at [facility]. Continue Tamiflu. No sign of pneum onia. 4. Anemia of chronic disease, baseline hemoglobin appears to be 8. 5. Hypotension secondary to sepsis from influenza, chronic UTI and chronic ulcers. Midodrine 10 mg daily increased to 3 times daily. 6. Urinary tract infection. Continue antibiotics. Urine culture in progress. Patient was started on oral antibiotics at the snf. 7. Possible heart failure. Cardiology consult. Patient started on Lasix 40 mg IV daily. Echocardiogram ordered. 8. Rheumatoid arthritis with chronic pain. Patient is off Arava. Continue fentanyl patch 12 Xarelto 20 g per hour every 72 hours, [place] 10 one every 6 hours, Lyrica 100 mg twice daily, baclofen 5 mg twice daily. 9. History of DVT. Xarelto 20 mg daily. 10. Hypothyroidism. Continue levothyroxine 200 g daily. 11. Chronic kidney disease stage II, stable. 12. Anemia of chronic disease. Continue ferrous sulfate 325 mg twice daily. 13. Chronic Charles catheter. 14. DVT prophylaxis. Xarelto. 15. GI prophylaxis. Protonix. Patient will be admitted to the hospital for a minimum of 2 night stay. Discharge plan: Return to [facility]. Impression and plan of care have been directed as dictated by the signing physician. Arlene Darnell nurse practitioner acting as scribe for signing bobby griffiths.
[2019-09-04] MEDS ORDERED: FUROSEMIDE 10 MG/ML 4 ML VIAL IV PRN (11:04)
[2019-09-04] MEDS: VANCOMYCIN 1,500 MG in SODIUM CHLORIDE 0.9% 250 ML IVPB SCH ×2 (11:41→20:40)
[2019-09-04] MEDS: SODIUM CHLORIDE 0.9% 1,000 ML IV SCH (11:43)
--- NOTE | 2019-09-04 14:21 | P.CRDCN ---
History of Present Illness History of present illness: HISTORY OF PRESENTING ILLNESS This is a pleasant 69-year-old female past medical history significant for DVT maintained on xarelto, rheumatoid arthritis, multiple non-healing venous statis uclers on both legs and fibromyalgia. She denies prior history of coronary artery disease or heart failure. She does not follow in the office with a rn emergency room for any reason. We have been asked to see in consultation for heart failure. She was sent here from [facility] for weakness, influenza, low blood pressure and anemia. She is seen and examined laying flat in bed resting comfortably in no acute distress. She denies chest pain, shortness of breath, dizziness or palpitations. DIAGNOSTICS EKG reveals sinus mechanism heart rate [address] and T-wave abnormalities. Chest xray retrocardiac opacity represented with atelectasis or pneumonia and diffuse interstitial prominences. Laboratory reviewed, hemoglobin 7.4, platelets 267, WBC 4.6, sodium 133, potassium 4.4, creatinine 0.81, TSH 0.348 and albumin 2.4. Current cardiac medications include Lasix 20 mg daily, Xarelto 20 mg daily and midodrine 10 mg twice a day. Most recent echocardiogram obtained in 2017 reveals preserved LV systolic function with ejection fraction 55-60%. REVIEW OF SYSTEMS At the time of my exam: CONSTITUTIONAL: Denies fever or chills. CARDIOVASCULAR: Denies chest pain, shortness of breath, orthopnea, PND or palpitations. RESPIRATORY: Denies cough. GASTROINTESTINAL: Denies abdominal pain, diarrhea, constipation, nausea or vomiting. MUSCULOSKELETAL: Denies myalgias. NEUROLOGIC: Denies numbness, tingling or weakness. ENDOCRINE: Denies fatigue, weight change, polydipsia or polyurina. GENITOURINARY: Denies burning, hematuria or urgency with micturation. HEMATOLOGIC: Denies history of anemia or bleeding. PHYSICAL EXAMINATION Blood pressure 98/50 heart rate 84 afebrile and maintaining oxygen saturation on nasal cannula. CONSTITUTIONAL: No apparent distress. Generalized pallor. HEENT: Head is normocephalic. Pupils are equal, round. Sclerae anicteric. Mucous membranes of the mouth are moist. No JVD. No carotid bruit. CHEST EXAMINATION: Lungs are clear to auscultation. No chest wall tenderness is noted on palpation or with deep breathing. HEART EXAMINATION: Regular rate and rhythm. S1, S2 heard. No murmurs, gallops or rub. ABDOMEN: Soft, nontender. Positive bowel sounds. EXTREMITIES: 2+ peripheral pulses, bilateral lower extremity non-pitting edema and no calf tenderness. Dry flaking skin on bilateral lower extremities with multiple venous stasis ulcerations and wound VAC in place. NEUROLOGIC EXAMINATION: Patient is awake, alert and oriented x3. ASSESSMENT Chronic bilateral lower extremity ulcers and cellulitis Influenza A and B Anemia Hypotension Urinary tract infection History of DVT maintained on Xarelto Rheumatoid arthritis Dyslipidemia PLAN Clinically she is euvolemic, lungs are clear and she has no shortness of breath. Heart failure is unlikely. We will check a proBNP and review the echo that was ordered. Continue current regimen with PO lasix and simvastatin. Thank you kindly for this consultation. Nurse Practitioner note has been reviewed, I agree with a documented findings and plan of care. Patient was seen and examined. Past Medical History Past Medical History: Deep Vein Thrombosis (DVT), Fibromyalgia, Rheumatoid Arthritis (RA), Skin Disorder, Thyroid Disorder Additional Past Medical History / Comment(s): "LEAKY BLADDER" ,"POOR CIRCULATION", HX Wound rt foot 3rd toe, bunion on left foot, PAST RT HIP FX-NO SX DONE. wound vac on right buttock, multiple leg wounds History of Any Multi-Drug Resistant Organisms: MRSA Date of last positivie culture/infection: 02/17/18 MDRO Source:: Leg: lower right Past Surgical History: Appendectomy, Cholecystectomy, Tonsillectomy Additional Past Surgical History / Comment(s): Left foot wound debridement. Nodule removed from thyroid. sinus surgery. surgical excision and debridment of sacrum with wound VAC placement on 08/05/15 and sx done(flap) that developed pin hole leak -had 2nd sx to repair". Debridement wound care to right lower extremity wound on 08/21/15. Past Anesthesia/Blood Transfusion Reactions: No Reported Reaction Past Psychological History: No Psychological Hx Reported Additional Psychological History / Comment(s): pt lives at [facility] Smoking Status: Never smoker Past Alcohol Use History: None Reported Past Drug Use History: None Reported - Past Family History Mother Family Medical History: AFIB, Cancer Additional Family Medical History / Comment(s): Past away. skin cancer Father Family Medical History: Liver Disease, Rheumatoid Arthritis (RA) Additional Family Medical History / Comment(s): Leukemia. at age 72 of liver problem. Medications and Allergies Home Medications Medication Instructions Recorded Confirmed Type Leflunomide [Arava] 20 mg PO DAILY@0800 08/26/17 09/03/19 History Levothyroxine Sodium [Synthroid] 200 mcg PO DAILY@0600 08/26/17 09/03/19 History Rivaroxaban [Xarelto] 20 mg PO DAILY@0800 07/10/19 09/03/19 History Lidocaine 4% Cream [Lmx 4] 1 applic TOPICAL Q4H PRN applic 07/30/19 09/03/19 Rx fentaNYL 12MCG/HR PATCH [Duragesic 1 patch TRANSDERM Q72H #1 patch 07/31/19 09/03/19 Rx 12MCG/HR] Acetaminophen [Tylenol] 650 mg PO Q4H PRN 09/03/19 09/03/19 History Baclofen [Lioresal] 5 mg PO BID@0800,1700 09/03/19 09/03/19 History Bisacodyl [Dulcolax] 10 mg RECTAL DAILY PRN 09/03/19 09/03/19 History Ferrous Sulfate [Feosol] 325 mg PO DAILY@1700 09/03/19 09/03/19 History Furosemide [Lasix] 20 mg PO DAILY@0800 09/03/19 09/03/19 History HYDROcodone/APAP 10-325MG [[place] 1 tab PO Q8H PRN 09/03/19 09/03/19 History 10-325] Ipratropium-Albuterol Nebulize 3 ml INHALATION RT-Q8H PRN 09/03/19 09/03/19 History [Duoneb 0.5 mg-3 mg/3 ml Soln] Evelio Packet 1 packet PO BID-W/MEALS 09/03/19 09/03/19 History L.acidoph,Paracasei, B.lactis 1 cap PO DAILY@1100 09/03/19 09/03/19 History [Probiotic] Liquacel Supplement Drink 30 ml PO DAILY@1200 09/03/19 09/03/19 History Magnesium Hydroxide [Milk of 2,400 mg PO DAILY PRN 09/03/19 09/03/19 History Magnesia] Midodrine HCl [ProAmatine] 10 mg PO BID 09/03/19 09/03/19 History Moxifloxacin HCl [Avelox] 400 mg PO DAILY@1700 09/03/19 09/03/19 History Na Phos,M-B/Na Phos,Di-Ba [Fleet 133 ml RECTAL ONCE PRN 09/03/19 09/03/19 History Adult] Ondansetron [Zofran] 4 mg PO Q8H PRN 09/03/19 09/03/19 History Oseltamivir [Tamiflu] 75 mg PO Q12HR 09/03/19 09/03/19 History Pantoprazole [Protonix] 40 mg PO BID@0800,1700 09/03/19 09/03/19 History Polyethylene Glycol 3350 [Miralax] 17 gm PO DAILY@0800 09/03/19 09/03/19 History Potassium Chloride 10 meq PO DAILY@1700 09/03/19 09/03/19 History Pregabalin [Lyrica] 100 mg PO BID@0800,2100 09/03/19 09/03/19 History Sennosides-Docusate Sodium 2 each PO HS PRN 09/03/19 09/03/19 History [Senokot-S] Triamcinolone 0.1% Cream [Kenalog 1 applicatio TOPICAL BID PRN 09/03/19 09/03/19 History 0.1% Cream] guaiFENesin [Mucinex] 1,200 mg PO Q12H PRN 09/03/19 09/03/19 History Allergies Allergy/AdvReac Type Severity Reaction Status Date / Time Penicillins Allergy Rash/Hives Verified 09/03/19 19:00 Physical Exam Vitals: Vital Signs Temp Pulse Pulse Resp BP BP Pulse Ox 09/04/19 06:32 96.9 F L 84 16 98/50 91 L 09/04/19 00:25 18 09/03/19 20:37 97.1 F L 88 18 108/55 100 09/03/19 19:56 98.9 F 86 17 100/53 98 09/03/19 19:33 87 18 101/85 98 09/03/19 18:45 98.4 F 89 18 96/65 95 09/03/19 17:47 80 18 108/56 98 09/03/19 16:36 79 18 100/66 97 09/03/19 14:51 98.5 F 82 18 99/57 100 Intake and Output 09/03/19 09/04/19 09/04/19 22:59 06:59 14:59 Intake Total 600 Balance 600 Intake: Intake, IV Titration 350 Amount Levofloxacin 750Mg-D5w 100 Pmx 750 mg In Dextrose/ Water 1 150ml.bag @ 100 mls/hr IVPB Q24H [facility] Rx#: [id number] Vancomycin 1,500 mg In 250 Sodium Chloride 0.9% 250 ml @ 125 mls/hr IVPB Q12H [facility] Rx#:[id number] Oral 250 Other: Voiding Method Diaper Diaper # Voids 1 Weight 109 kg 109 kg Results 09/04/19 07:23 09/03/19 17:15 Cardiac Enzymes 09/03/19 Range/Units 17:15 AST 26 (14-36) U/L Coagulation 09/03/19 Range/Units 17:15 PT 15.0 H (9.0-12.0) sec APTT 46.5 H (22.0-30.0) sec CBC 09/03/19 09/04/19 Range/Units 17:15 07:23 WBC 5.5 4.6 (3.8-10.6) k/uL RBC 3.16 L 2.80 L (3.80-5.40) m/uL Hgb 8.4 L 7.4 L (11.4-16.0) gm/dL Hct 28.9 L 25.1 L (34.0-46.0) % Plt Count 299 267 (150-450) k/uL Comprehensive Metabolic Panel 09/03/19 Range/Units 17:15 Sodium 133 L (137-145) mmol/L Potassium 4.4 (3.5-5.1) mmol/L Chloride 103 (98-107) mmol/L Carbon Dioxide 26 (22-30) mmol/L BUN 22 H (7-17) mg/dL Creatinine 0.81 (0.52-1.04) mg/dL Glucose 72 L (74-99) mg/dL Calcium 7.7 L (8.4-10.2) mg/dL AST 26 (14-36) U/L ALT 6 (4-34) U/L Alkaline Phosphatase 93 (38-126) U/L Total Protein 5.5 L (6.3-8.2) g/dL Albumin 2.4 L (3.5-5.0) g/dL Current Medications Generic Name Dose Route Start Last Admin Trade Name Freq PRN Reason Stop Dose Admin Acetaminophen 650 mg 09/03/19 21:28 Tylenol Tab PO Q4H PRN TEMP Hydrocodone Bitart/Acetaminophen 1 each 09/03/19 19:27 [place] 10 PO Q8H PRN Pain Albuterol/Ipratropium 3 ml 09/03/19 19:27 Duoneb 0.5 Mg-3 Mg/3 Ml Soln INHALATION RT-Q8H PRN Shortness Of Breath Baclofen 5 mg 09/04/19 08:00 09/04/19 07:55 Lioresal PO 5 mg BID@0800,1700 [facility] Administration Bisacodyl 10 mg 09/03/19 21:28 Dulcolax RECTAL DAILY PRN Constipation Fentanyl 1 patch 09/05/19 09:00 Duragesic 12mcg/Hr Patch TRANSDERM Q72H [facility] Ferrous Sulfate 325 mg 09/04/19 17:00 Feosol PO DAILY@1700 [facility] Furosemide 20 mg 09/04/19 08:00 09/04/19 07:55 Lasix PO 09/05/19 08:01 20 mg DAILY@0800 [facility] Administration Furosemide 40 mg 09/04/19 11:04 Lasix IV DAILY PRN SBP > 100 Guaifenesin 1,200 mg 09/03/19 21:28 Mucinex PO Q12H PRN Cough Sodium Chloride 1,000 mls @ 50 mls/hr 09/03/19 18:15 09/04/19 11:43 Saline 0.9% IV 50 mls/hr .Q20H [facility] Administration Vancomycin HCl 1,500 mg/ 250 mls @ 125 mls/hr 09/04/19 07:00 09/04/19 11:41 Sodium Chloride IVPB 125 mls/hr Q12H [facility] Administration Levofloxacin 750 mg/ IV 150 mls @ 100 mls/hr 09/04/19 18:00 Solution IVPB Q24H [facility] Lactobacillus Acidoph/Bulgaricus 1 each 09/04/19 11:00 09/04/19 07:56 Lactinex PO 1 each DAILY@1100 [facility] Administration Levothyroxine Sodium 200 mcg 09/05/19 06:30 Synthroid PO DAILY@0630 [facility] Magnesium Hydroxide 2,400 mg 09/03/19 21:28 Milk Of Magnesia PO DAILY PRN Constipation Midodrine 10 mg 09/04/19 12:30 09/04/19 11:46 Proamatine PO 10 mg AC-TID [facility] Administration Naloxone HCl 0.2 mg 09/03/19 18:12 Narcan IV Q2M PRN Opioid Reversal Ondansetron HCl 4 mg 09/03/19 21:28 09/04/19 07:59 Zofran PO 4 mg Q8H PRN Administration Nausea Oseltamivir Phosphate 75 mg 09/03/19 21:00 09/04/19 07:55 Tamiflu PO 09/06/19 21:01 75 mg Q12HR [facility] Administration Pantoprazole Sodium 40 mg 09/04/19 08:00 09/04/19 07:55 Protonix PO 40 mg BID@0800,1700 [facility] Administration Polyethylene Glycol 17 gm 09/04/19 08:00 09/04/19 07:55 Miralax PO Not Given DAILY@0800 [facility] Potassium Chloride 10 meq 09/04/19 17:00 K-Dur 10 PO 09/05/19 17:01 DAILY@1700 [facility] Pregabalin 100 mg 09/04/19 08:00 09/04/19 07:55 Lyrica PO 100 mg BID@0800,2100 [facility] Administration Rivaroxaban 20 mg 09/04/19 08:00 09/04/19 07:55 Xarelto PO 20 mg DAILY@0800 [facility] Administration Senna/Docusate Sodium 2 each 09/03/19 21:28 Senokot-S PO HS PRN Constipation Triamcinolone Acetonide 1 applic 09/03/19 22:00 Kenalog TOPICAL BID PRN Rash Intake and Output 09/03/19 09/04/19 09/04/19 22:59 06:59 14:59 Intake Total 600 Balance 600 Intake: Intake, IV Titration 350 Amount Levofloxacin 750Mg-D5w 100 Pmx 750 mg In Dextrose/ Water 1 150ml.bag @ 100 mls/hr IVPB Q24H [facility] Rx#: [id number] Vancomycin 1,500 mg In 250 Sodium Chloride 0.9% 250 ml @ 125 mls/hr IVPB Q12H [facility] Rx#:[id number] Oral 250 Other: Voiding Method Diaper Diaper # Voids 1 Weight 109 kg 109 kg Patient Weight 09/05/19 06:59 Weight 109 kg 09/04/19 07:23 09/03/19 17:15
[2019-09-04] MEDS: POTASSIUM CHLORIDE ER 10 MEQ TAB.ER.PRT PO SCH (16:37)
[2019-09-04] MEDS: FERROUS SULFATE 325 MG TAB PO SCH (16:37)
[2019-09-04] MEDS ORDERED: MOXIFLOXACIN HCL 400 MG PO SCH (17:00)
[2019-09-04] MEDS ORDERED: LEVOFLOXACIN 750MG-D5W PMX 750 MG in DEXTROSE/WATER 1 150ML.BAG IVPB SCH (18:00)
[2019-09-04 18:08] LABS: % Iron Saturation 3.28 (12.00-45.00)
--- NOTE | 2019-09-04 18:37 | ECHOF ---
Referral Reason:history of CHF MEASUREMENTS -------- HEIGHT: 175.3 cm WEIGHT: 108.9 kg BP: 98/50 RVIDd: 3.1 cm (< 3.3) IVSd: 1.1 cm (0.6 - 1.1) LVIDd: 4.4 cm (3.9 - 5.3) LVPWd: 1.2 cm (0.6 - 1.1) IVSs: 1.6 cm LVIDs: 3.3 cm LVPWs: 2.3 cm LAESV Index (A-L): 34.46 ml/m Ao Diam: 3.9 cm (2.0 - 3.7) AV Cusp: 2.3 cm (1.5 - 2.6) LA Diam: 3.3 cm (2.7 - 3.8) MV EXCURSION: 17.766 mm (> 18.000) MV EF SLOPE: 131 mm/s (70 - 150) EPSS: 1.0 cm MV E Dajuan: 1.09 m/s MV DecT: 137 ms MV A Dajuan: 0.79 m/s MV E/A Ratio: 1.38 RAP: 20.00 mmHg RVSP: 52.00 mmHg FINDINGS -------- Sinus rhythm. This was a technically adequate study. The left ventricular size is normal. Left ventricular wall thickness is normal. Overall left vent ricular systolic function is normal with, an EF between 55 - 60 %. Increased Lap Grade II Diastolic Dysfunction. The right ventricle is normal in size. LA is moderately dilated 34-39 ml/m2 The right atrial size is normal. Mobile interatrial septum. There is mild to moderate aortic valve sclerosis. There is no evidence of aortic regurgitation. T here is no evidence of aortic stenosis. Moderate mitral regurgitation is present. [id number] tricuspid regurgitation present. There is moderate pulmonary hypertension. The r ight ventricular systolic pressure, as measured by Doppler, is 52.00mmHg. Trace/mild (physiologic) pulmonic regurgitation. The aortic root size is normal. The inferior vena cava is dilated with no significant inspiratory collapse which is consistent estima claudia right atrial pressure of >20 mmHg. Echo free space represents a pericardial fat pad. There is no pericardial effusion. CONCLUSIONS -------- 1. Sinus rhythm. 2. This was a technically adequate study. 3. The left ventricular size is normal. 4. Left ventricular wall thickness is normal. 5. Increased Lap Grade II Diastolic Dysfunction. 6. The right ventricle is normal in size. 7. LA is moderately dilated 34-39 ml/m2 8. The right atrial size is normal. 9. Mobile interatrial septum. 10. There is mild to moderate aortic valve sclerosis. 11. There is no evidence of aortic regurgitation. 12. There is no evidence of aortic stenosis. 13. Moderate mitral regurgitation is present. 14. [id number] tricuspid regurgitation present. 15. There is moderate pulmonary hypertension. 16. The right ventricular systolic pressure, as measured by Doppler, is 52.00mmHg. 17. Trace/mild (physiologic) pulmonic regurgitation. 18. The aortic root size is normal. 19. The inferior vena cava is dilated with no significant inspiratory collapse which is consistent es timated right atrial pressure of >20 mmHg. 20. Echo free space represents a pericardial fat pad. 21. There is no pericardial effusion. [employer] SUPERVISOR: Milly uLx RDCS
--- NOTE | 2019-09-05 00:11 | P.CONS ---
History of Present Illness - Reason for Consult Consult date: 09/04/19 Sacral and bilateral lower extremity wound Requesting physician: Alana Wilson - Chief Complaint Weakness and shortness of breath nonhealing wounds x weeks to months - History of Present Illness Patient is a 69-year-old female with a past medical history significa nt for bilateral lower extremity chronic venous stasis ulcer with secondary cellulitis patient also have a chronic nonhealing wound to the sacral area which is currently being treated with the wound VAC, patient recently has been treated with episodes of cellulitis and wound infection culture were positive for pseudomonas and the patient was treated with a cefepime the patient has completed, the last few days at the skilled nursing the patient was noticed to have increasing weakness pathology the patient did have a acute influenza positive and was started on Tamiflu patient did have blood work done she was noticed to have a low hemoglobin and also noticed to be hypertensive for the patient has been transferred to the [facility] ER for further management, The patient currently denies high-grade fever or chills the patient denies having any chest pain or shortness breath patient did have some cough but not bringing up any sputum no nausea no vomiting no bone pain or any diarrhea pat ient did have occasion dull aching pain to the leg wound especially with the dressing changes currently with no significant drainage from these wound patient denies any problem with her sacral wound VAC, on admission to the hospital for the patient did have local wound cultures obtained from the sacral wound and she also have x-rays of the sacrum which is now showing bony erosion with concern for ostomy myelitis patient is currently being treated with vancomycin and Levaquin and infectious disease was consulted for further management of antibiotics and local wound care will recommend local wound care to the lower extremity wound has been Aquacel silver dressing Review of Systems Positive point has been mentioned in the HPI rest of the systems are negative Past Medical History Past Medical History: Deep Vein Thrombosis (DVT), Fibromyalgia, Rheumatoid Arthritis (RA), Skin Disorder, Thyroid Disorder Additional Past Medical History / Comment(s): "LEAKY BLADDER" ,"POOR CIRCULATION", HX Wound rt foot 3rd toe, bunion on left foot, PAST RT HIP FX-NO SX DONE. wound vac on right buttock, multiple leg wounds History of Any Multi-Drug Resistant Organisms: MRSA Year Discovered:: 02/17/18 MDRO Source:: Leg: lower right Past Surgical History: Appendectomy, Cholecystectomy, Tonsillectomy Additional Past Surgical History / Comment(s): Left foot wound debridement. Nodule removed from thyroid. sinus surgery. surgical excision and debridment of sacrum with wound VAC placement on 08/05/15 and sx done(flap) that developed pin hole leak -had 2nd sx to repair". Debridement wound care to right lower extremity wound on 08/21/15. Past Anesthesia/Blood Transfusion Reactions: No Reported Reaction Past Psychological History: No Psychological Hx Reported Additional Psychological History / Comment(s): pt lives [facility] Smoking Status: Never smoker Past Alcohol Use History: None Reported Past Drug Use History: None Reported - Past Family History Mother Family Medical History: AFIB, Cancer Additional Family Medical History / Comment(s): Past away. skin cancer Father Family Medical History: Liver Disease, Rheumatoid Arthritis (RA) Additional Family Medical History / Comment(s): Leukemia. at age 72 of liver problem. Medications and Allergies Home Medications Medication Instructions Recorded Confirmed Type Leflunomide [Arava] 20 mg PO DAILY@0800 08/26/17 09/03/19 History Levothyroxine Sodium [Synthroid] 200 mcg PO DAILY@0600 08/26/17 09/03/19 History Rivaroxaban [Xarelto] 20 mg PO DAILY@0800 07/10/19 09/03/19 History Lidocaine 4% Cream [Lmx 4] 1 applic TOPICAL Q4H PRN applic 07/30/19 09/03/19 Rx fentaNYL 12MCG/HR PATCH [Duragesic 1 patch TRANSDERM Q72H #1 patch 07/31/19 09/03/19 Rx 12MCG/HR] Acetaminophen [Tylenol] 650 mg PO Q4H PRN 09/03/19 09/03/19 History Baclofen [Lioresal] 5 mg PO BID@0800,1700 09/03/19 09/03/19 History Bisacodyl [Dulcolax] 10 mg RECTAL DAILY PRN 09/03/19 09/03/19 History Ferrous Sulfate [Feosol] 325 mg PO DAILY@1700 09/03/19 09/03/19 History Furosemide [Lasix] 20 mg PO DAILY@0800 09/03/19 09/03/19 History HYDROcodone/APAP 10-325MG [[place] 1 tab PO Q8H PRN 09/03/19 09/03/19 History 10-325] Ipratropium-Albuterol Nebulize 3 ml INHALATION RT-Q8H PRN 09/03/19 09/03/19 History [Duoneb 0.5 mg-3 mg/3 ml Soln] Evelio Packet 1 packet PO BID-W/MEALS 09/03/19 09/03/19 History L.acidoph,Paracasei, B.lactis 1 cap PO DAILY@1100 09/03/19 09/03/19 History [Probiotic] Liquacel Supplement Drink 30 ml PO DAILY@1200 09/03/19 09/03/19 History Magnesium Hydroxide [Milk of 2,400 mg PO DAILY PRN 09/03/19 09/03/19 History Magnesia] Midodrine HCl [ProAmatine] 10 mg PO BID 09/03/19 09/03/19 History Moxifloxacin HCl [Avelox] 400 mg PO DAILY@1700 09/03/19 09/03/19 History Na Phos,M-B/Na Phos,Di-Ba [Fleet 133 ml RECTAL ONCE PRN 09/03/19 09/03/19 Histo ry Adult] Ondansetron [Zofran] 4 mg PO Q8H PRN 09/03/19 09/03/19 History Oseltamivir [Tamiflu] 75 mg PO Q12HR 09/03/19 09/03/19 History Pantoprazole [Protonix] 40 mg PO BID@0800,1700 09/03/19 09/03/19 History Polyethylene Glycol 3350 [Miralax] 17 gm PO DAILY@0800 09/03/19 09/03/19 History Potassium Chloride 10 meq PO DAILY@1700 09/03/19 09/03/19 History Pregabalin [Lyrica] 100 mg PO BID@0800,2100 09/03/19 09/03/19 History Sennosides-Docusate Sodium 2 each PO HS PRN 09/03/19 09/03/19 History [Senokot-S] Triamcinolone 0.1% Cream [Kenalog 1 applicatio TOPICAL BID PRN 09/03/19 09/03/19 History 0.1% Cream] guaiFENesin [Mucinex] 1,200 mg PO Q12H PRN 09/03/19 09/03/19 History Allergies Allergy/AdvReac Type Severity Reaction Status Date / Time Penicillins Allergy Rash/Hives Verified 09/03/19 19:00 Physical Exam Vitals: Vital Signs Temp Pulse Resp BP Pulse Ox 09/04/19 20:15 97.5 F L 80 18 100/58 99 09/04/19 13:01 97.4 F L 83 16 132/62 99 09/04/19 06:32 96.9 F L 84 16 98/50 91 L 09/04/19 00:25 18 Intake and Output 09/04/19 09/04/19 09/05/19 14:59 22:59 06:59 Intake Total 540 540 Output Total 750 500 Balance -210 40 Intake: Oral 540 540 Output: Urine 750 500 Other: Voiding Method Diaper Diaper # Bowel Movements 2 Weight 109 kg GENERAL DESCRIPTION: An elderly female lying in bed, no distress. No tachypnea or accessory muscle of respiration use. HEENT: Shows Pallor , no scleral icterus. Oral mucous membrane is dry. No pharyngeal erythema or thrush NECK: Trachea central, no thyromegaly. LUNGS: Unlabored breathing. Decreased present at the base. No wheeze or crackle. HEART: S1, S2, regular rate and rhythm. No loud murmur ABDOMEN: Soft, no tenderness , guarding or rigidity, no organomegaly EXTREMITIES: Bilateral lower extremity venous stasis ulcer no significant cellulitis or slough tissue SKIN: No rash, no masses palpable. NEUROLOGICAL: The patient is awake, alert, oriented x3, mood and affect normal. Results CBC & Chem 7: 09/04/19 07:23 09/03/19 17:15 Labs: Abnormal Lab Results - Last 24 Hours (Table) 09/04/19 09/04/19 Range/Units 07:23 07:23 RBC 2.80 L (3.80-5.40) m/uL Hgb 7.4 L (11.4-16.0) gm/dL Hct 25.1 L (34.0-46.0) % MCHC 29.6 L (31.0-37.0) g/dL RDW 17.3 H (11.5-15.5) % Lymphocytes # 0.4 L (1.0-4.8) k/uL Iron 6 L (50-170) ug/dL TIBC 183 L (228-460) ug/dL % Saturation 3.28 L (12.00-45.00) Microbiology - Last 24 Hours (Table) 09/03/19 17:15 Blood Culture - Preliminary Blood No Growth after 24 hours 09/03/19 16:16 Urine Culture - Preliminary Urine,Voided Gram Neg Bacilli Gram Neg Bacilli#2 09/03/19 16:30 Gram Stain - Preliminary Leg - Left Wound Culture - Preliminary Gram Neg Bacilli Gram Neg Bacilli#2 09/04/19 00:10 Gram Stain - Preliminary Buttock Wound Culture - Preliminary Assessment and Plan Assessment: 1-patient with bilateral lower extremity venous stasis ulcer currently with no evidence of any cellulitis will recommend local wound care 2-patient with a chronic nonhealing wound to the sacral area now with evidence of abnormalities seen on the x-rays of the sacral area with concern for possible sacral Osteomyelitis and local wound culture showing gram-negative 3-patient with acute influenza A diagnosed the skilled nursing chest x-ray with some rounded opacity suspicious for pneumonia, no significant respiratory symptoms (1) Sacral osteomyelitis Current Visit: Yes Status: Acute Code(s): M46.28 - OSTEOMYELITIS OF VERTEBRA, SACRAL AND SACROCOCCYGEAL REGION SNOMED Code(s): 565028267 (2) Venous stasis ulcer of left lower leg with edema of left lower leg Current Visit: Yes Status: Acute Code(s): I83.029 - VARICOSE VEINS OF LEFT LOWER EXTREMITY W ULCER OF UNSP SITE; I83.892 - VARICOSE VEINS OF L LOW EXTREM WITH OTHER COMPLICATIONS; L97.929 - NON-PRS CHRONIC ULC UNSP PRT OF L LOW LEG W UNSP SEVERITY; R60.9 - EDEMA, UNSPECIFIED SNOMED Code(s): 93865513865007078 (3) Venous stasis ulcer of right lower leg with edema of right lower leg Current Visit: Yes Status: Acute Code(s): I83.019 - VARICOSE VEINS OF RIGHT LOWER EXTREMITY W ULCER OF UNSP SITE; I83.891 - VARICOSE VEINS OF R LOW EXTREM WITH OTHER COMPLICATIONS; L97.919 - NON-PRS CHRONIC ULC UNSP PRT OF R LOW LEG W UNSP SEVERITY; R60.9 - EDEMA, UNSPECIFIED SNOMED Code(s): 26657057108122161 (4) Influenza Current Visit: Yes Status: Acute Code(s): J11.1 - FLU DUE TO UNIDENTIFIED INFLUENZA VIRUS W OTH RESP MANIFEST SNOMED Code(s): 7680875 (5) Wound infection Current Visit: Yes Status: Acute Code(s): T14.8 - OTHER INJURY OF UNSPECIFIED BODY REGION * DO NOT USE * SNOMED Code(s): 72490976 Plan: 1-local wound care to bilateral lower extremity venous is also with Aquacel silver dressing followed by Sukhjinder wrap to be changed every 48 hours 2-sacral wound local care to continue with the wound VAC 3-we will discontinue Levaquin and start the patient cefepime 2 g every 12 hours to cover for possible sacral osteomyelitis 4-Tamiflu 75 mg twice a repeat hepatic course of therapy 5-obtained sputum for Gram stain and culture We will follow on clinical condition and cultures to further adjust medication if needed Thank you for this consultation will follow this patient with you Time with Patient: Greater than 30
[2019-09-05] MEDS: LEVOTHYROXINE 100 MCG TAB PO SCH (05:44)
[2019-09-05] MEDS: PANTOPRAZOLE 40 MG TABLET PO SCH ×2 (07:37→17:36)
[2019-09-05] MEDS: FUROSEMIDE 20 MG TAB PO SCH (07:37)
[2019-09-05] MEDS: PREGABALIN 100 MG CAP PO SCH ×2 (07:37→21:20)
[2019-09-05] MEDS: LACTOBACILLUS ACIDOPH & BULGAR 1 EACH PACKET PO SCH (07:37)
[2019-09-05] MEDS: OSELTAMIVIR 75 MG CAP PO SCH ×2 (07:37→21:20)
[2019-09-05] MEDS: RIVAROXABAN 20 MG TAB PO SCH (07:38)
[2019-09-05] MEDS: VANCOMYCIN 1,500 MG in SODIUM CHLORIDE 0.9% 250 ML IVPB SCH ×2 (07:38→20:03)
[2019-09-05] MEDS: MIDODRINE 5 MG TAB PO SCH ×3 (07:38→17:36)
[2019-09-05] MEDS: BACLOFEN 10 MG TAB PO SCH ×2 (07:38→17:36)
[2019-09-05] MEDS: POLYETHYLENE GLYCOL 3350 17 GM POWD.PACK PO SCH (07:39)
[2019-09-05 09:56] LABS: African American GFR (CKD) >90 (>60 ml/min/1.73 sqM); C Reactive Protein 62.1 mg/L (<10.0); Non-African American GFR(CKD) 81 (>60 ml/min/1.73 sqM)
[2019-09-05] MEDS: CEFEPIME 2 GM in SODIUM CHLORIDE 0.9% 100 ML IVPB SCH ×2 (10:28→21:21)
[2019-09-05] MEDS: HYDROcodone/APAP 10-325MG 1 EACH TAB PO PRN ×2 (12:10→17:36)
[2019-09-05] MEDS: SODIUM CHLORIDE 0.9% 1,000 ML IV SCH (14:53)
--- NOTE | 2019-09-05 15:01 | P.PN ---
Subjective Progress Note Date: 09/05/19 This is a 69-year-old female patient of Dr. Moyer currently at [facility] with past medical history of rheumatoid arthritis, hypothyroidism, DVT, fibromyalgia, multiple decubitus ulcer, MRSA infection, previous admission for GI bleed secondary to antral ulcer, gastritis and duodenitis requiring blood transfusion, hypothyroidism, chronic kidney disease stage II. Patient was recently hospitalized in early July which time she was treated for sepsis secondary to Pseudomonas UTI and bilateral lower extremity ulcers, stage IV decubitus ulcers the right buttocks and the bone scan was negative for osteomyelitis, acute on chronic anemia of chronic disease. She underwent EGD that did show nonbleeding antral ulcer biopsied and no active bleeding or old blood noted. Biopsy from EGD was negative for malignancy and negative for H. pylori. Wound VAC was applied to the sacral wound and patient was stabilized and discharged to [facility] for subacute rehab. Patient now presents from [facility] to [facility] emergency center due to weakness. She has been treated for UTI and influenza diagnosed 2 days ago. Patient was on Avelox for 10 day course, started Tamiflu on Wednesday. She continues to have chronic lower extremity wounds with worsening drainage and swelling patient blood pressure was low. Initial blood pressure in the emergency center was 99/57 with a heart rate of 82, patient's been afebrile, pulse ox 100%. EKG was a sinus rhythm with no acute ST changes. WBC 8.4, WBC 5.5, platelet count 299. Sodium 133, potassium 4.4, chloride 103, CO2 26, BUN 22 and creatinine 0.81, blood sugar 72. Lactic acid 1.3. Urinalysis cloudy, leukoesterase large, nitrate negative, blood moderate, RBCs 9, WBC 20, squamous cells 3. Liver function tests normal, CK 22, albumin 2.4. Chest x-ray showing pulmonary edema. Patient was started on IV antibiotics with Levaquin and vancomycin and continued on Tamiflu, consult with Dr. Rangel. 09/05: Patient is seen and rechecked today. She continues to have some nausea without diarrhea. She denies any abdominal pain. Blood pressure this morning was 107/56, heart rate 80, pulse ox 94% on room air, afebrile. Repeat blood work reveals a proBNP 1570, CRP 62, creatinine 0.75. Wound and urine cultures are showing to gram-negative bacilli organisms. Patient has been seen by Dr. Rangel with recommendations for local wound care with Aquacel Ag to the bilateral lower extremity venous ulcers. Continue wound VAC to the sacral wound. Levaquin was discontinued and patient started on cefepime. Patient is continued on Tamiflu and isolation. Patient has been seen by cardiology and heart failure has been ruled out. Echocardiogram reveals EF of 55-60%, moderate mitral regurgitation, [id number] tricuspid regurgitation, moderate pulmonary hypertension. PT and OT are working with the patient. Discharge plan will be to return to [facility] for subacute rehab. Midline has been placed for IV access. Patient may require IV antibiotics at discharge. Review Of Systems: Constitutional: No fever, no chills, no night sweats. No weight change. Reports weakness, fatigue or lethargy. EENT: No headache. No blurred vision or double vision, no loss of vision. No loss of Hearing, no ringing in the ears, no dizziness. No nasal drainage or congestion. No epistaxis. No sore throat. Lungs: No shortness of breath, cough, no sputum production. No wheezing. Cardiovascular: No chest pain, reports lower extremity edema. No palpitations. No paroxysmal nocturnal dyspnea. No orthopnea. No lightheadedness or dizziness. No syncopal episodes. Abdominal: No abdominal pain. Reports nausea, denies vomiting. No diarrhea. No constipation. No bloody or tarry stools.. No loss of appetite. Genitourinary: No dysuria, increased frequency, urgency. No urinary retention. Musculoskeletal: No myalgias. No muscle weakness, no gait dysfunction, no frequent falls. No back pain. No neck pain. Integumentary: Reports wounds, no lesions. No rash or pruritus. No unusual bruising. No change in hair or nails. Neurologic: No aphasia. No facial droop. No change in mentation. No head injury. No headache. No paralysis. No paresthesia. Psychiatric: No depression. No anxiety. No mood swings. Endocrine: No abnormal blood sugars. No weight change. No excessive sweating or thirst. No cold intolerance. Objective - Vital Signs Vital signs: Vital Signs Temp 97.4 F L 09/05/19 06:32 Pulse 80 09/05/19 06:32 Resp 18 09/05/19 07:49 BP 107/56 09/05/19 06:32 Pulse Ox 94 L 09/05/19 06:32 Intake & Output 09/04/19 09/05/19 09/05/19 18:59 06:59 18:59 Intake Total 1080 200 Output Total 1050 500 Balance 30 -500 200 Weight 109 kg 111 kg Intake: Oral 1080 200 Output: Urine 1050 500 Other: Voiding Method Diaper Diaper Diaper # Bowel Movements 2 - Exam Gen: This is an obese 69-year-old female.patient is resting in bed and appears to be comfortable and in no acute distress. Patient is on the edge of the bed with physical therapy and occupational therapy. HEENT: Head is atraumatic, normocephalic. Pupils equal, round. Sclerae is anicteric. oral mucous membranes moist. NECK: Supple. No JVD. No lymphadenopathy. No thyromegaly. LUNGS: Clear to auscultation. No wheezes or rhonchi. No intercostal retractions. HEART: Regular rate and rhythm. No murmur. ABDOMEN: Soft. Obese. Bowel sounds are present. No masses. No tenderness. EXTREMITIES: dressings to the lower extremities not removed. There is a large open wound on right buttocks with necrotic tissue andmild surrounding erythema. minimal active drainage. Patient also has 2 small wound distally. She also has multiple smaller wounds to bilateral lower legs. bowel order noted. Please see nursing documentation for detail. Significant nodular deformities bilateral hands secondary to rheumatoid arthritis. NEUROLOGICAL: Patient is awake, alert and oriented x3. Cranial nerves 2 through 12 are grossly intact. - Labs CBC & Chem 7: 09/04/19 07:23 09/05/19 09:06 Labs: Abnormal Lab Results - Last 24 Hours (Table) 09/04/19 09/05/19 Range/Units 07:23 09:06 Iron 6 L (50-170) ug/dL TIBC 183 L (228-460) ug/dL % Saturation 3.28 L (12.00-45.00) C-Reactive Protein 62.1 H (<10.0) mg/L Microbiology - Last 24 Hours (Table) 09/04/19 00:10 Gram Stain - Preliminary Buttock Wound Culture - Preliminary Gram Neg Bacilli 09/03/19 17:15 Blood Culture - Preliminary Blood No Growth after 24 hours 09/03/19 16:16 Urine Culture - Preliminary Urine,Voided Gram Neg Bacilli Gram Neg Bacilli#2 09/03/19 16:30 Gram Stain - Preliminary Leg - Left Wound Culture - Preliminary Gram Neg Bacilli Gram Neg Bacilli#2 Assessment and Plan Plan: 1. Stage 2 decubitus ulcer sacrum, right buttocks unstageable decubitus ulcer, present on admission. Consult with Dr. Rangel. Patient is currently on Levaquin and vancomycin. Sacral x-ray ordered. Wound culture in progress. Continue local wound care. Midline ordered for IV access. Wound VAC in place. 2. Chronic bilateral lower extremity ulcers and cellulitis secondary to peripheral vascular disease, right heel unstageable, present on admission. 3. Influenza diagnosed at [facility]. Continue Tamiflu. No sign of pneumonia. 4. Anemia of chronic disease, baseline hemoglobin appears to be 8. 5. Hypotension secondary to sepsis from influenza, chronic UTI and chronic ulcers. Midodrine 10 mg daily increased to 3 times daily. 6. Urinary tract infection. Continue antibiotics. Urine culture in progress. Patient was started on oral antibiotics at the group home. 7. Possible heart failure. Cardiology consult. Patient started on Lasix 40 mg IV daily. Echocardiogram ordered. 8. Rheumatoid arthritis with chronic pain. Patient is off Arava. Continue fentanyl patch 12 Xarelto 20 g per hour every 72 hours, Maple 10 one every 6 hours, Lyrica 100 mg twice daily, baclofen 5 mg twice daily. 9. History of DVT. Xarelto 20 mg daily. 10. Hypothyroidism. Continue levothyroxine 200 g daily. 11. Chronic kidney disease stage II, stable. 12. Anemia of chronic disease. Continue ferrous sulfate 325 mg twice daily. 13. Chronic Charles catheter. 14. DVT prophylaxis. Xarelto. 15. GI prophylaxis. Protonix. Discharge plan: Return to [facility]. Impression and plan of care have been directed as dictated by the signing physician. Arlene Darnell nurse practitioner acting as scribe for signing physician.
[2019-09-05] MEDS: POTASSIUM CHLORIDE ER 10 MEQ TAB.ER.PRT PO SCH (17:36)
[2019-09-05] MEDS: FERROUS SULFATE 325 MG TAB PO SCH (17:37)
[2019-09-05] MEDS ORDERED: VANCOMYCIN TROUGH DUE 1 EACH MISC MISCELLANE ONE (18:00)
--- NOTE | 2019-09-05 23:30 | PN ---
PROGRESS NOTE DATE OF SERVICE: 09/05/2019 REASON FOR FOLLOWUP: 1. Bilateral lower extremity venostasis ulcers. 2. Sacral pressure ulcer with concern for osteomyelitis. INTERVAL HISTORY: The patient is currently afebrile, has been breathing comfortably. The patient did have some cough but not bringing up any sputum. No nausea, no vomiting. No abdominal pain or diarrhea. PHYSICAL EXAMINATION: Blood pressure 114/58 with a pulse of 86, temperature 98.7. She is 96% on room air. General description is an elderly female lying in bed in no distress. RESPIRATORY SYSTEM: Unlabored breathing. Clear to auscultation anteriorly. HEART: S1, S2. Regular rate and rhythm. ABDOMEN: Soft. No tenderness. Wounds are currently covered. No drainage on the dressings. LABS: Urine did grow Proteus and E coli. Wound culture with pseudomonas and Proteus mirabilis. DIAGNOSTIC IMPRESSION AND PLAN: 1. Patient with a chronic nonhealing wound to the sacral area. X-rays were suspicious for bony erosion suspicion for osteomyelitis. Wound culture now showing pseudomonas. Wounds will be examined tomorrow at the time of wound V.A.C. change. She will need a PICC line and continue with cefepime for at least 6 weeks. 2. Patient with bilateral lower extremity venostasis ulcers. Current local wound care with dry Aquacel Silver dressing and continue supportive care. MMODL / IJN: [id number] /
[2019-09-06] MEDS ORDERED: VANCOMYCIN 1,500 MG in SODIUM CHLORIDE 0.9% 250 ML IVPB SCH (02:00)
[2019-09-06] MEDS: LEVOTHYROXINE 100 MCG TAB PO SCH (06:24)
[2019-09-06] MEDS: HYDROcodone/APAP 10-325MG 1 EACH TAB PO PRN (08:03)
[2019-09-06] MEDS: BACLOFEN 10 MG TAB PO SCH ×2 (08:03→16:54)
[2019-09-06] MEDS: PANTOPRAZOLE 40 MG TABLET PO SCH ×2 (08:03→16:54)
[2019-09-06] MEDS: PREGABALIN 100 MG CAP PO SCH ×2 (08:03→21:00)
[2019-09-06] MEDS: MIDODRINE 5 MG TAB PO SCH ×3 (08:03→16:55)
[2019-09-06] MEDS: OSELTAMIVIR 75 MG CAP PO SCH ×2 (08:03→21:00)
[2019-09-06] MEDS: LACTOBACILLUS ACIDOPH & BULGAR 1 EACH PACKET PO SCH (08:03)
[2019-09-06] MEDS: RIVAROXABAN 20 MG TAB PO SCH (08:04)
[2019-09-06] MEDS: POLYETHYLENE GLYCOL 3350 17 GM POWD.PACK PO SCH (08:04)
[2019-09-06] MEDS: CEFEPIME 2 GM in SODIUM CHLORIDE 0.9% 100 ML IVPB SCH ×2 (08:04→21:00)
[2019-09-06] MEDS: SODIUM CHLORIDE 0.9% 1,000 ML IV SCH (08:05)
[2019-09-06 09:40] LABS: Anisocytosis Slight; HCT 28.9 % (34.0-46.0); HGB 8.5 gm/dL (11.4-16.0); Hypochromasia Marked; MCH 26.4 pg (25.0-35.0); MCHC 29.4 g/dL (31.0-37.0); MCV 89.6 fL (80.0-100.0); Mean Platelet Volume 9.6; Platelet Count 352 k/uL (150-450); RBC 3.23 m/uL (3.80-5.40); RDW 17.2 % (11.5-15.5); WBC 6.1 k/uL (3.8-10.6)
[2019-09-06 09:48] LABS: Calcium 8.1 mg/dL (8.4-10.2); Potassium 4.1 mmol/L (3.5-5.1)
[2019-09-06] MEDS: ONDANSETRON 4 MG TAB PO PRN (12:28)
[2019-09-06] MEDS ORDERED: ONDANSETRON 4 MG/2 ML VIAL IVP PRN (12:44)
--- NOTE | 2019-09-06 14:38 | P.PN ---
Subjective Progress Note Date: 09/06/19 This is a 69-year-old female patient of Dr. Moyer currently at [facility] with past medical history of rheumatoid arthritis, hypothyroidism, DVT, fibromyalgia, multiple decubitus ulcer, MRSA infection, previous admission for GI bleed secondary to antral ulcer, gastritis and duodenitis requiring blood transfusion, hypothyroidism, chronic kidney disease stage II. Patient was recently hospitalized in early July which time she was treated for sepsis secondary to Pseudomonas UTI and bilateral lower extremity ulcers, stage IV decubitus ulcers the right buttocks and the bone scan was negative for osteomyelitis, acute on chronic anemia of chronic disease. She underwent EGD that did show nonbleeding antral ulcer biopsied and no active bleeding or old blood noted. Biopsy from EGD was negative for malignancy and negative for H. pylori. Wound VAC was applied to the sacral wound and patient was stabilized and discharged to [facility] for subacute rehab. Patient now presents from [facility] to [facility] emergency center due to weakness. She has been treated for UTI and influenza diagnosed 2 days ago. Patient was on Avelox for 10 day course, started Tamiflu on Wednesday. She continues to have chronic lower extremity wounds with worsening drainage and swelling patient blood pressure was low. Initial blood pressure in the emergency center was 99/57 with a heart rate of 82, patient's been afebrile, pulse ox 100%. EKG was a sinus rhythm with no acute ST changes. WBC 8.4, WBC 5.5, platelet count 299. Sodium 133, potassium 4.4, chloride 103, CO2 26, BUN 22 and creatinine 0.81, blood sugar 72. Lactic acid 1.3. Urinalysis cloudy, leukoesterase large, nitrate negative, blood moderate, RBCs 9, WBC 20, squamous cells 3. Liver function tests normal, CK 22, albumin 2.4. Chest x-ray showing pulmonary edema. Patient was started on IV antibiotics with Levaquin and vancomycin and continued on Tamiflu, consult with Dr. Rangel. 09/05: Patient is seen and rechecked today. She continues to have some nausea without diarrhea. She denies any abdominal pain. Blood pressure this morning was 107/56, heart rate 80, pulse ox 94% on room air, afebrile. Repeat blood work reveals a proBNP 1570, CRP 62, creatinine 0.75. Wound and urine cultures are showing to gram-negative bacilli organisms. Patient has been seen by Dr. Rangel with recommendations for local wound care with Aquacel Ag to the bilateral lower extremity venous ulcers. Continue wound VAC to the sacral wound. Levaquin was discontinued and patient started on cefepime. Patient is continued on Tamiflu and isolation. Patient has been seen by cardiology and heart failure has been ruled out. Echocardiogram reveals EF of 55-60%, moderate mitral regurgitation, [id number] tricuspid regurgitation, moderate pulmonary hypertension. PT and OT are working with the patient. Discharge plan will be to return to [facility] for subacute rehab. Midline has been placed for IV access. Patient may require IV antibiotics at discharge. 09/06: Patient has been afebrile, heart rate 99, blood pressure 121/62, pulse ox 96% on room air. Repeat blood work reveals WBC 6.1, hemoglobin 8.5, electrolytes and renal function normal. Dr. Rangel has recommended PICC line and cefepime for 6 weeks. Patient currently has a midline in place. Discussed with [facility] liaison and patient may be able to return to [facility] and have a PICC line placed later. We will place Xarelto on hold for now in case we can do this prior to her discharge. Patient is complaining of nausea this morning. She states she had a last bowel movement 2 days ago. No diarrhea. Carafate added. Review Of Systems: Constitutional: No fever, no chills, no night sweats. No weight change. Reports weakness, fatigue or lethargy. EENT: No headache. No blurred vision or double vision, no loss of vision. No loss of Hearing, no ringing in the ears, no dizziness. No nasal drainage or congestion. No epistaxis. No sore throat. Lungs: No shortness of breath, cough, no sputum production. No wheezing. Cardiovascular: No chest pain, reports lower extremity edema. No palpitations. No paroxysmal nocturnal dyspnea. No orthopnea. No lightheadedness or dizziness. No syncopal episodes. Abdominal: No abdominal pain. Reports nausea, denies vomiting. No diarrhea. Denies constipation. No bloody or tarry stools reports loss of appetite. Genitourinary: No dysuria, increased frequency, urgency. No urinary retention. Musculoskeletal: No myalgias. No muscle weakness, no gait dysfunction, no frequent falls. No back pain. No neck pain. Integumentary: Reports wounds, no lesions. No rash or pruritus. No unusual bruising. No change in hair or nails. Neurologic: No aphasia. No facial droop. No change in mentation. No head injury. No headache. No paralysis. No paresthesia. Psychiatric: No depression. No anxiety. No mood swings. Endocrine: No abnormal blood sugars. No weight change. No excessive sweating or thirst. No cold intolerance. Objective - Vital Signs Vital signs: Vital Signs Temp 97.6 F 09/06/19 12:16 Pulse 82 09/06/19 12:16 Resp 20 09/06/19 12:16 BP 145/63 09/06/19 12:16 Pulse Ox 96 09/06/19 12:16 Intake & Output 09/05/19 09/06/19 09/06/19 18:59 06:59 18:59 Intake Total 400 Output Total 500 900 Balance -100 -900 Intake: Oral 400 Output: Urine 500 900 Other: Voiding Method Diaper Diaper Diaper # Voids 1 # Bowel Movements 0 - Exam Gen: This is an obese 69-year-old female.patient is resting in bed and appears to be uncomfortable due to nausea. HEENT: Head is atraumatic, normocephalic. Pupils equal, round. Sclerae is anicteric. oral mucous membranes moist. NECK: Supple. No JVD. No lymphadenopathy. No thyromegaly. LUNGS: Clear to auscultation. No wheezes or rhonchi. No intercostal retractions. HEART: Regular rate and rhythm. No murmur. ABDOMEN: Soft. Obese. Bowel sounds are present. No masses. No tenderness. EXTREMITIES: dressings to the lower extremities not removed. There is a large open wound on right buttocks with necrotic tissue andmild surrounding erythema. minimal active drainage. Patient also has 2 small wound distally. She also has multiple smaller wounds to bilateral lower legs. bowel order noted. Please see nursing documentation for detail. Significant nodular deformities bilateral hands secondary to rheumatoid arthritis. NEUROLOGICAL: Patient is awake, alert and oriented x3. Cranial nerves 2 through 12 are grossly intact. - Labs CBC & Chem 7: 09/06/19 08:09 09/06/19 08:09 Labs: Abnormal Lab Results - Last 24 Hours (Table) 09/06/19 09/06/19 Range/Units 08:09 08:09 RBC 3.23 L (3.80-5.40) m/uL Hgb 8.5 L (11.4-16.0) gm/dL Hct 28.9 L (34.0-46.0) % MCHC 29.4 L (31.0-37.0) g/dL RDW 17.2 H (11.5-15.5) % Calcium 8.1 L (8.4-10.2) mg/dL Microbiology - Last 24 Hours (Table) 09/04/19 00:10 Gram Stain - Preliminary Buttock Wound Culture - Preliminary Proteus mirabilis Gram Neg Bacilli 09/03/19 17:15 Blood Culture - Preliminary Blood No Growth after 48 hours 09/03/19 16:30 Gram Stain - Final Leg - Left Wound Culture - Final Pseudomonas aeruginosa Proteus mirabilis 09/03/19 16:16 Urine Culture - Final Urine,Voided Escherichia coli Proteus mirabilis Assessment and Plan Plan: 1. Stage 2 decubitus ulcer sacrum with suspected osteomyelitis, right buttocks unstageable decubitus ulcer, present on admission. Consult with Dr. Rangel. Patient is currently on cefepime. Sacral x-ray ordered. Wound culture in progress. Continue local wound care. Midline ordered for IV access. Wound VAC in place. PICC line will be ordered and Xarelto on hold to possibly be placed prior to discharge. Dr. Rangel is planning for 6 week course of cefepime. 2. Chronic bilateral lower extremity ulcers and cellulitis secondary to peripheral vascular disease, right heel unstageable, present on admission. 3. Influenza diagnosed at [facility]. Continue Tamiflu. No sign of pneumonia. 4. Anemia of chronic disease, baseline hemoglobin appears to be 8. 5. Hypotension secondary to sepsis from influenza, chronic UTI and chronic ulcers. Midodrine 10 mg daily increased to 3 times daily. 6. Urinary tract infection. Continue antibiotics. Urine culture in progress. Patient was started on oral antibiotics at the correction. 7. Possible heart failure. Cardiology consult. Patient started on Lasix 40 mg IV daily. Echocardiogram ordered. 8. Rheumatoid arthritis with chronic pain. Patient is off Arava. Continue fentanyl patch 12 Xarelto 20 g per hour every 72 hours, Boyle 10 one every 6 hours, Lyrica 100 mg twice daily, baclofen 5 mg twice daily. 9. History of DVT. Xarelto 20 mg daily. 10. Hypothyroidism. Continue levothyroxine 200 g daily. 11. Chronic kidney disease stage II, stable. 12. Anemia of chronic disease. Continue ferrous sulfate 325 mg twice daily. 13. Chronic Charles catheter. 14. DVT prophylaxis. Xarelto. 15. GI prophylaxis. Protonix. 16. Nausea possibly secondary to GERD. Carafate added Discharge plan: Return to [facility]. Impression and plan of care have been directed as dictated by the signing physician. Arlene Darnell nurse practitioner acting as scribe for signing physician.
[2019-09-06] MEDS: FERROUS SULFATE 325 MG TAB PO SCH (16:54)
[2019-09-06] MEDS: SUCRALFATE 1 GM TAB PO SCH (16:55)
--- NOTE | 2019-09-06 22:49 | PN ---
PROGRESS NOTE DATE OF SERVICE: 09/06/2019 REASON FOR FOLLOWUP: 1. Sacral osteomyelitis. 2. Bilateral lower extremity venostasis ulcers. INTERVAL HISTORY: The patient is currently afebrile. The patient has been breathing comfortably. The patient denies having any chest pain or shortness of breath or cough. No nausea, vomiting or any worsening pain to the sacral wound area. PHYSICAL EXAMINATION: Blood pressure is 118/74, pulse of 91, temperature of 98.4. She is 95% on room air. General description is an elderly female lying in bed in no distress. RESPIRATORY SYSTEM: Unlabored breathing with decreased breath sounds at the base. No wheeze. HEART: S1, S2. Regular rate and rhythm. ABDOMEN: Soft. No tenderness. Sacral wound is deep with bone palpable, but the wound base looks clean. No surrounding redness. LABS: Hemoglobin 8.5, white count 6.1. Sed rate 825. CRP . DIAGNOSTIC IMPRESSION AND PLAN: 1. Patient with a chronic nonhealing wound to the sacral area with evidence of bony erosion on the CT. Culture has been positive for Proteus mirabilis and Gram- negative bacilli. Patient is covered with cefepime 2 grams q.12. She will get a PICC line tomorrow to continue with cefepime 2 grams q.12 for a total of 6 weeks. Local care to continue with a wound V.A.C. 2. Bilateral lower extremity venostasis ulcers. To continue local wound care with Aquacel Silver dressing and continue supportive care. MMODL / IJN: [id number] /
[2019-09-07] MEDS: SODIUM CHLORIDE 0.9% 1,000 ML IV SCH (02:29)
[2019-09-07] MEDS: LEVOTHYROXINE 100 MCG TAB PO SCH (06:19)
[2019-09-07] MEDS: SUCRALFATE 1 GM TAB PO SCH ×2 (07:46→11:15)
[2019-09-07] MEDS: BACLOFEN 10 MG TAB PO SCH (07:46)
[2019-09-07] MEDS: POLYETHYLENE GLYCOL 3350 17 GM POWD.PACK PO SCH (07:46)
[2019-09-07] MEDS: PANTOPRAZOLE 40 MG TABLET PO SCH (07:46)
[2019-09-07] MEDS: MIDODRINE 5 MG TAB PO SCH ×2 (07:46→11:15)
[2019-09-07] MEDS: CEFEPIME 2 GM in SODIUM CHLORIDE 0.9% 100 ML IVPB SCH (07:50)
[2019-09-07] MEDS: PREGABALIN 100 MG CAP PO SCH (07:50)
[2019-09-07 09:57] LABS: Anisocytosis Slight; Basophils # (A) 0.1 k/uL (0-0.2); Basophils % (A) 1 %; Eosinophils # (A) 0.8 k/uL (0-0.7); Eosinophils % (A) 15 %; HCT 28.4 % (34.0-46.0); HGB 8.3 gm/dL (11.4-16.0); Hypochromasia Marked; Lymphocytes # (A) 0.5 k/uL (1.0-4.8); Lymphocytes % (A) 9 %; MCH 26.2 pg (25.0-35.0); MCHC 29.2 g/dL (31.0-37.0); MCV 89.7 fL (80.0-100.0); Mean Platelet Volume 8.5; Monocytes # (A) 0.5 k/uL (0-1.0); Monocytes % (A) 9 %; Neutrophils # (A) 3.6 k/uL (1.3-7.7); Neutrophils % (A) 63 %; Platelet Count 377 k/uL (150-450); RBC 3.17 m/uL (3.80-5.40); RDW 17.4 % (11.5-15.5); WBC 5.7 k/uL (3.8-10.6)
[2019-09-07 10:01] LABS: Albumin 2.2 g/dL (3.5-5.0); Calcium 8.3 mg/dL (8.4-10.2); Potassium 4.1 mmol/L (3.5-5.1); Total Bilirubin 0.6 mg/dL (0.2-1.3)
[2019-09-07] MEDS: LACTOBACILLUS ACIDOPH & BULGAR 1 EACH PACKET PO SCH (11:15)
--- NOTE | 2019-09-07 11:48 | P.DS ---
Providers Date of admission: 09/03/19 18:12 Expected date of discharge: 09/07/19 Attending physician: Alana Wilson Consults: 09/03/19 21:35 Consult Physician Routine Consulting Provider: Jocelyn Rangel Consult Reason/Comments: wound care tracanter, bilateral lower extremity Do you want consulting provider notified?: Yes, Notify in am 09/04/19 10:50 Consult Physician Routine Consulting Provider: Librado Schaeffer Consult Reason/Comments: chf Do you want consulting provider notified?: Yes Primary care physician: Cierra Moyer [facility] Course: This is a 69-year-old female patient of Dr. Moyer currently at [facility] with past medical history of rheumatoid arthritis, hypothyroidism, DVT, fibromyalgia, multiple decubitus ulcer, MRSA infection, previous admission for GI bleed secondary to antral ulcer, gastritis and duodenitis requiring blood transfusion, hypothyroidism, chronic kidney disease stage II. Patient was recently hospitalized in early July which time she was treated for sepsis secondary to Pseudomonas UTI and bilateral lower extremity ulcers, stage IV decubitus ulcers the right buttocks and the bone scan was negative for osteomyelitis, acute on chronic anemia of chronic disease. She underwent EGD that did show nonbleeding antral ulcer biopsied and no active bleeding or old blood noted. Biopsy from EGD was negative for malignancy and negative for H. pylori. Wound VAC was applied to the sacral wound and patient was stabilized and discharged to [facility] for subacute rehab. Patient now presents from [facility] to [facility] emergency center due to weakness. She has been treated for UTI and influenza diagnosed 2 days ago. Patient was on Avelox for 10 day course, started Tamiflu on Wednesday. She continues to have chronic lower extremity wounds with worsening drainage and swelling patient blood pressure was low. Initial blood pressure in the emergency center was 99/57 with a heart rate of 82, patient's been afebrile, pu lse ox 100%. EKG was a sinus rhythm with no acute ST changes. WBC 8.4, WBC 5.5, platelet count 299. Sodium 133, potassium 4.4, chloride 103, CO2 26, BUN 22 and creatinine 0.81, blood sugar 72. Lactic acid 1.3. Urinalysis cloudy, leukoesterase large, nitrate negative, blood moderate, RBCs 9, WBC 20, squamous cells 3. Liver function tests normal, CK 22, albumin 2.4. Chest x-ray showing pulmonary edema. Patient was started on IV antibiotics with Levaquin and vancomycin and continued on Tamiflu, consult with Dr. Rangel. 09/05: Patient is seen and rechecked today. She continues to have some nausea without diarrhea. She denies any abdominal pain. Blood pressure this morning was 107/56, heart rate 80, pulse ox 94% on room air, afebrile. Repeat blood work reveals a proBNP 1570, CRP 62, creatinine 0.75. Wound and urine cultures are showing to gram-negative bacilli organisms. Patient has been seen by Dr. Rangel with recommendations for local wound care with Aquacel Ag to the bilateral lower extremity venous ulcers. Continue wound VAC to the sacral wound. Levaquin was discontinued and patient started on cefepime. Patient is continued on Tamiflu and isolation. Patient has been seen by cardiology and heart failure has been ruled out. Echocardiogram reveals EF of 55-60%, moderate mitral regurgitation, [id number] tricuspid regurgitation, moderate pulmonary hypertension. PT and OT are working with the patient. Discharge plan will be to return to [facility] for subacute rehab. Midline has been placed for IV access. Patient may require IV antibiotics at discharge. 09/06: Patient has been afebrile, heart rate 99, blood pressure 121/62, pulse ox 96% on room air. Repeat blood work reveals WBC 6.1, hemoglobin 8.5, electrolytes and renal function normal. Dr. Rangel has recommended PICC line and cefepime for 6 weeks. Patient currently has a midline in place. Discussed with [facility] liaison and patient may be able to return to [facility] and have a PICC line placed later. We will place Xarelto on hold for now in case we can do this prior to her discharge. Patient is complaining of nausea this morning. She states she had a last bowel movement 2 days ago. No diarrhea. Carafate added. 09/07: Patient states that she is feeling significantly better this morning. She ate breakfast without nausea. She states she normally receives wound care from Dr. Medina at the wound healing center which will be planned after discharge. Patient has been afebrile, heart rate 91, blood pressure 124/58, pulse ox 96% on room air. Repeat blood work reveals a CBC 5.7, hemoglobin 8.3, platelet count 377. Chloride 109, BUN 16 and creatinine 0.79, blood sugar 100. Liver function tests normal. Patient will have PICC line placed at noon prior to discharge. Patient is cleared for discharge back to [facility] in stable condition. Discharge plan: 1. Stage 2 decubitus ulcer sacrum with suspected osteomyelitis, right buttocks unstageable decubitus ulcer, present on admission. 2. Chronic bilateral lower extremity ulcers and cellulitis secondary to peripheral vascular disease, right heel unstageable, present on admission. 3. Influenza diagnosed at [facility]. 4. Anemia of chronic disease, baseline hemoglobin appears to be 8. 5. Hypotension secondary to sepsis from influenza, chronic UTI and chronic ulcers. 6. Urinary tract infection. 7. Possible heart failure ruled out by cardiology. 8. Rheumatoid arthritis with chronic pain. 9. History of DVT. 10. Hypothyroidism. 11. Chronic kidney disease stage II, stable. 12. Anemia of chronic disease. 13. Chronic Charles catheter. Discharge plan: Return to [facility]. Impression and plan of care have been directed as dictated by the signing physician. Arlene Darnell nurse practitioner acting as scribe for signing physician. Patient Condition at Discharge: Good Plan - Discharge Summary Discharge Rx Participant: No New Discharge Prescriptions: New Cefepime HCl [Maxipime] 2 gm IVPB Q12H #84 vial Sucralfate [Carafate] 1 gm PO AC-TID #90 tab Midodrine [ProAmatine] 10 mg PO AC-TID tab Continue Levothyroxine Sodium [Synthroid] 200 mcg PO DAILY@0600 Leflunomide [Arava] 20 mg PO DAILY@0800 Rivaroxaban [Xarelto] 20 mg PO DAILY@0800 Lidocaine 4% Cream [Lmx 4] 1 applic TOPICAL Q4H PRN applic PRN Reason: Pain Ondansetron [Zofran] 4 mg PO Q8H PRN PRN Reason: Nausea Na Phos,M-B/Na Phos,Di-Ba [Fleet Adult] 133 ml RECTAL ONCE PRN PRN Reason: Constipation Magnesium Hydroxide [Milk of Magnesia] 2,400 mg PO DAILY PRN PRN Reason: Constipation Bisacodyl [Dulcolax] 10 mg RECTAL DAILY PRN PRN Reason: Constipation Acetaminophen [Tylenol] 650 mg PO Q4H PRN PRN Reason: TEMP Ipratropium-Albuterol Nebulize [Duoneb 0.5 mg-3 mg/3 ml Soln] 3 ml INHALATION RT-Q8H PRN PRN Reason: Shortness Of Breath Triamcinolone 0.1% Cream [Kenalog 0.1% Cream] 1 applicatio TOPICAL BID PRN PRN Reason: Rash Pantoprazole [Protonix] 40 mg PO BID@0800,1700 Evelio Packet 1 packet PO BID-W/MEALS guaiFENesin [Mucinex] 1,200 mg PO Q12H PRN PRN Reason: Shortness Of Breath Baclofen [Lioresal] 5 mg PO BID@0800,1700 Sennosides-Docusate Sodium [Senokot-S] 2 each PO HS PRN PRN Reason: Constipation Potassium Chloride 10 meq PO DAILY@1700 L.acidoph,Paracasei, B.lactis [Probiotic] 1 cap PO DAILY@1100 Liquacel Supplement Drink 30 ml PO DAILY@1200 Furosemide [Lasix] 20 mg PO DAILY@0800 Polyethylene Glycol 3350 [Miralax] 17 gm PO DAILY@0800 Ferrous Sulfate [Feosol] 325 mg PO DAILY@1700 fentaNYL 12MCG/HR PATCH [Duragesic 12MCG/HR] 1 patch TRANSDERM Q72H #1 patch Pregabalin [Lyrica] 100 mg PO BID@0800,2100 #6 cap HYDROcodone/APAP 10-325MG [[place] 10-325] 1 tab PO Q8H PRN #9 tab PRN Reason: Pain Discontinued Oseltamivir [Tamiflu] 75 mg PO Q12HR Midodrine HCl [ProAmatine] 10 mg PO BID Moxifloxacin HCl [Avelox] 400 mg PO DAILY@1700 Discharge Medication List Leflunomide [Arava] 20 mg PO DAILY@0800 08/26/17 [History] Levothyroxine Sodium [Synthroid] 200 mcg PO DAILY@0600 08/26/17 [History] Rivaroxaban [Xarelto] 20 mg PO DAILY@0800 07/10/19 [History] Lidocaine 4% Cream [Lmx 4] 1 applic TOPICAL Q4H PRN applic 07/30/19 [Rx] Acetaminophen [Tylenol] 650 mg PO Q4H PRN 09/03/19 [History] Baclofen [Lioresal] 5 mg PO BID@0800,1700 09/03/19 [History] Bisacodyl [Dulcolax] 10 mg RECTAL DAILY PRN 09/03/19 [History] Ferrous Sulfate [Feosol] 325 mg PO DAILY@1700 09/03/19 [History] Furosemide [Lasix] 20 mg PO DAILY@0800 09/03/19 [History] Ipratropium-Albuterol Nebulize [Duoneb 0.5 mg-3 mg/3 ml Soln] 3 ml INHALATION RT-Q8H PRN 09/03/19 [History] Evelio Packet 1 packet PO BID-W/MEALS 09/03/19 [History] L.acidoph,Paracasei, B.lactis [Probiotic] 1 cap PO DAILY@1100 09/03/19 [History] Liquacel Supplement Drink 30 ml PO DAILY@1200 09/03/19 [History] Magnesium Hydroxide [Milk of Magnesia] 2,400 mg PO DAILY PRN 09/03/19 [History] Na Phos,M-B/Na Phos,Di-Ba [Fleet Adult] 133 ml RECTAL ONCE PRN 09/03/19 [History] Ondansetron [Zofran] 4 mg PO Q8H PRN 09/03/19 [History] Pantoprazole [Protonix] 40 mg PO BID@0800,1700 09/03/19 [History] Polyethylene Glycol 3350 [Miralax] 17 gm PO DAILY@0800 09/03/19 [History] Potassium Chloride 10 meq PO DAILY@17009/03/19 [History] Sennosides-Docusate Sodium [Senokot-S] 2 each PO HS PRN 09/03/19 [History] Triamcinolone 0.1% Cream [Kenalog 0.1% Cream] 1 applicatio TOPICAL BID PRN 09/03/19 [History] guaiFENesin [Mucinex] 1,200 mg PO Q12H PRN 09/03/19 [History] Cefepime HCl [Maxipime] 2 gm IVPB Q12H #84 vial 09/06/19 [Rx] HYDROcodone/APAP 10-325MG [[place] 10-325] 1 tab PO Q8H PRN #9 tab 09/07/19 [Rx] Midodrine [ProAmatine] 10 mg PO AC-TID tab 09/07/19 [Rx] Pregabalin [Lyrica] 100 mg PO BID@0800,2100 #6 cap 09/07/19 [Rx] Sucralfate [Carafate] 1 gm PO AC-TID #90 tab 09/07/19 [Rx] fentaNYL 12MCG/HR PATCH [Duragesic 12MCG/HR] 1 patch TRANSDERM Q72H #1 patch 09/07/19 [Rx] Follow up Appointment(s)/Referral(s): Cierra Moyer MD [Primary Care Provider] - 1 Week (at [facility]) Braulio Medina MD [Family Provider] - [facility] Jocelyn Rangel MD [STAFF PHYSICIAN] - 3 Weeks Activity/Diet/Wound Care/Special Instructions: Wound VAC to coccyx running at 120 continues change MWF 2 black pieces of foam. Discharge Disposition: TRANSFER TO SNF/ECF
[2019-09-07] MEDS ORDERED: HEPARIN SODIUM 1,000 UN/ML (10ML VL) ONE (14:04)
[2019-09-07] MEDS ORDERED: LIDOCAINE 1% INJ 10MG/ML (20 ML MDV) ONE (14:07)
[2019-09-07] MEDS ORDERED: LIDOCAINE 1% INJ 10MG/ML (20 ML MDV) SQ ONE (14:23)
[2019-09-07 14:25] VITALS: BP 140/77; PULSE 87; RESP 16; TEMP 98.7
--- NOTE | 2019-09-07 14:43 | IR ---
PICC LINE PLACEMENT: HISTORY: Infection requiring long-term antibiotic therapy PROCEDURE: Ultrasound and fluoroscopic guidance of PICC line placement. COMPLICATIONS: None ANESTHESIA: 1. 1% Lidocaine locally. FINDINGS/TECHNIQUE: The procedure was explained to the patient. The risks, complications, benefits and alternatives were discussed and any questions were answered. Informed consent was obtained. The patient was placed supine on the fluoroscopic table and prepped and draped in the usual sterile fash ion. Utilizing a 21 gauge needle and sonographic and fluoroscopic guidance, access in the left brac hial vein was achieved and there is placement of a 0.018 guidewire. The vein is patent. A 4-F sheat h was placed over the guidewire. The guidewire and dilator were removed and a 4-F. PICC line was orlando nichole through the sheath with the tip at the level of the SVC. The sheath was removed, the catheter wa s flushed and sutured into position. The patient was stable throughout the procedure and remained st able upon discharge from the Department of Radiology. The vein puncture was patent under ultrasound. A magaña scale image was obtained to document patency of the vein punctured. All elements of the maximal barrier technique were utilized. FLUOROSCOPY TIME: 0.1 minute and one image submitted IMPRESSION: Successful PICC line placement under ultrasound and fluoroscopic guidance.
--- NOTE | 2019-09-07 19:03 | PN ---
PROGRESS NOTE DATE OF SERVICE: 09/07/2019. REASON FOR FOLLOWUP: Sacral pressure ulcer with underlying osteomyelitis, Gram-negative. INTERVAL HISTORY: The patient is currently afebrile, has been breathing comfortably. Denies having any chest pain or shortness of breath or cough. No nausea, no vomiting, no abdominal pain, no diarrhea. PHYSICAL EXAMINATION: Her blood pressure is 140/77 with a pulse of 87, temperature 98.6. She is 94% on room air. General description is an elderly female lying in bed in no distress. RESPIRATORY SYSTEM: Unlabored breathing. Clear to auscultation anteriorly. HEART: S1, S2. Regular rate and rhythm. ABDOMEN: Soft. No tenderness. LABS: Hemoglobin is 8.3, white count 5.7, BUN of 16, creatinine 0.79. DIAGNOSTIC IMPRESSION AND PLAN: Patient with sacral pressure ulcer, stage I, in this patient who did have evidence of osteomyelitis on the basis of the abnormal x-ray. Culture positive for Proteus mirabilis and Escherichia coli. Rest of the culture has been positive for Pseudomonas. Patient is covered with cefepime 2 grams q.12, which she will continue for a total of 6 weeks. Local wound care with wound V.A.C. family at the bedside. Their questions and concerns were answered. MMODL / IJN: [id number] /
--- NOTE | 2019-09-08 12:34 | CDI ---
Documentation Clarification Form Date: 09/08/19 From: Janice Brower Phone: If you have a question about this query, please contact Valeria Mcknight, Accountant Clerk at [phone] between 8am and 5pm. Admit Date: 09/03/19 Discharge Date:09/07/19 Patient Name: Chyna Bueno Visit Number: [id number] ATTENTION: The Clinical Documentation Specialists (CDI) and [facility] Coding Staff appreciate your assistance in clarifying documentation. Please respond to the clarification below the line at the bottom and electronically sign. The CDI & [facility] Coding staff will review the response and follow-up if needed. Please note: Queries are made part of the Legal Health Record. If you have any questions, please contact the author of this message via ITS. Dear Dr. Wilson A diagnosis of UTI has been documented in the H&P, discharge summary and [facility]'s 09/05 & progress notes. History/Risk Factors: Hypotension, sepsis Per documentation in the same notes as above this patient was admitted with an indwelling Charles catheter. Clinical Indicators: Abnormal urinalysis, E.robert and Proteus mirabilis growing in the urine Urinalysis: Cloudy, moderate blood, large leukocyte esterase, 9 RBC, 20 WBC, rare bacteria, rare mucus Urine culture: E.coli, Proteus mirabilis Treatment: IV Levaquin and IV Vancomycin In your professional opinion, can you please clarify the etiology of the UTI, if known? Charles catheter UTI not related to catheter/urostomy Other condition, please specify Unable to determine CAUTi present prior to admision MTDD
== END 2019-09-07 17:29 | DRG 698 ==
LOC: EC 14:46 → 6NMEDSUR 18:12 → OBSVTOIN 18:12
PROVIDERS: ADMIT Family Medicine; ATTEND Family Medicine
PROC: 02HV33Z Insertion of Infusion Device into Superior Vena Cava, Percutaneous Approach (ICD-10-PCS; principal; 2019-09-07 07:30)
DX: T83.511A Infection and inflammatory reaction due to indwelling urethral catheter, initial encounter (principal); A41.52 Sepsis due to Pseudomonas; A41.59 Other Gram-negative sepsis; A41.51 Sepsis due to Escherichia coli [E. coli]; A41.89 Other specified sepsis; L03.116 Cellulitis of left lower limb; L03.115 Cellulitis of right lower limb; M46.28 Osteomyelitis of vertebra, sacral and sacrococcygeal region; L97.822 Non-pressure chronic ulcer of other part of left lower leg with fat layer exposed; L97.812 Non-pressure chronic ulcer of other part of right lower leg with fat layer exposed; N39.0 Urinary tract infection, site not specified; L89.310 Pressure ulcer of right buttock, unstageable; I27.20 Pulmonary hypertension, unspecified; L89.152 Pressure ulcer of sacral region, stage 2; L89.610 Pressure ulcer of right heel, unstageable; D63.8 Anemia in other chronic diseases classified elsewhere; I95.9 Hypotension, unspecified; E03.9 Hypothyroidism, unspecified; E78.5 Hyperlipidemia, unspecified; G89.29 Other chronic pain; I08.1 Rheumatic disorders of both mitral and tricuspid valves; J10.1 Influenza due to other identified influenza virus with other respiratory manifestations; M79.7 Fibromyalgia; I73.9 Peripheral vascular disease, unspecified; M06.9 Rheumatoid arthritis, unspecified; E66.9 Obesity, unspecified; I87.8 Other specified disorders of veins; Z68.34 Body mass index [BMI] 34.0-34.9, adult; Z79.01 Long term (current) use of anticoagulants; Z79.890 Hormone replacement therapy; Z79.899 Other long term (current) drug therapy; Z87.11 Personal history of peptic ulcer disease; Z86.718 Personal history of other venous thrombosis and embolism; Z86.14 Personal history of Methicillin resistant Staphylococcus aureus infection; Z88.0 Allergy status to penicillin; Z90.49 Acquired absence of other specified parts of digestive tract; Z87.440 Personal history of urinary (tract) infections; Z80.6 Family history of leukemia; Z80.8 Family history of malignant neoplasm of other organs or systems; Z82.49 Family history of ischemic heart disease and other diseases of the circulatory system; Z83.79 Family history of other diseases of the digestive system; Z82.61 Family history of arthritis; Y84.6 Urinary catheterization as the cause of abnormal reaction of the patient, or of later complication, without mention of misadventure at the time of the procedure
CPT/HCPCS: 36410; 36415; 36573; 71046; 72220; 76937; 80048; 80053; 80202; 81001; 82533; 82550; 82565; 83540; 83550; 83605; 83690; 83880; 84439; 84443; 85025; 85027; 85610; 85652; 85730; 86140; 86850; 86900; 86901; 87040; 87070; 87077; 87086; 87186; 87205; 93005; 93306; 94760; 96361; 96365; 96366; 96367; 99285

== ENCOUNTER 2019-10-09 05:12 | Emergency (ER) | payer MEDICARE ==
[2019-10-09 05:20] VITALS: RESP 16; TEMP 97.8
--- NOTE | 2019-10-09 05:20 | ED ---
General Adult HPI - General Stated complaint: itchy - History of Present Illness Initial comments: Dictation was produced using [employer] dictation software. please excuse any gr ammatical, word or spelling errors. Chief Complaint: 69-year-old female multiple comorbidities transferred from [facility] for rash and altered mental status. History of Present Illness: 69-year-old female she presents today with a rash. Patient allegedly being treated with antibiotics to treat osteomyelitis. She was woken up this morning and [facility] noted that patient was pruritic. Concern that patient had developed a rash. They also note that patient is a bit more sleepy and difficult to arouse today. The muscles: Patient is transferred to the emergency department according to EMS evaluation they did not note a rash. Patient is also GCS 15 and alert and oriented 4. Patient states she otherwise feels pre-well. Her skin is itchy but she also fe els groggy. No other complaints at this time. The ROS documented in this emergency department record has been reviewed and confirmed by me. Those systems with pertinent positive or negative responses have been documented in the HPI. All other systems are other negative and/or noncontributory. PHYSICAL EXAM: General Impression: Alert and oriented x3, not in acute distress HEENT: Normocephalic atraumatic, extra-ocular movements intact, pupils equal and reactive to light bilaterally, mucous membranes moist. Cardiovascular: Heart regular rate and rhythm, S1&S2 audible, no murmurs, rubs or gallops Chest: Lungs clear to auscultation bilaterally, no rhonchi, no wheeze, no rales Abdomen: Bowel sounds present, abdomen soft, non-tender, non-distended, no organomegaly Musculoskeletal: Pulses present and equal in all extremities, no peripheral edema Motor: no focal deficits noted Neurological: CN II-XII grossly intact, no focal motor or sensory deficits noted Skin: Intact with no visualized rashes Psych: Normal affect and mood ED course: 69-year-old female with concerns from [facility] for altered mental status and rash. Vital signs upon arrival are within acceptable limits. Patie nt's well-appearing. No discernible rash seen on physical examination. Patient alert and oriented 4. She has no neurologic deficits. No dysarthria or confusion.Laboratory evaluation obtained. Hemoglobin 9.4 which appears to be improved according to patient's baseline. Rest of CBC is unremarkable.. Metabolic panel is unremarkable. There is some concern however mild dehydration. Patient given intravenous fluids. Patient counseled on adequate hydration. Patient advised follow-up with primary care physician upon discharge for follow-up of symptoms. EKG interpretation: Ventricular rate 80, normal sinus rhythm, NC interval 166, QRS 84, QTC 417. No NC prolongation, no QTC prolongation, no ST or T-wave changes noted. Overall, this EKG is unremarkable - Related Data Home Medications Medication Instructions Recorded Confirmed Leflunomide [Arava] 20 mg PO DAILY@0800 08/26/17 09/03/19 Levothyroxine Sodium [Synthroid] 200 mcg PO DAILY@0600 08/26/17 09/03/19 Rivaroxaban [Xarelto] 20 mg PO DAILY@0800 07/10/19 09/03/19 Acetaminophen [Tylenol] 650 mg PO Q4H PRN 09/03/19 09/03/19 Baclofen [Lioresal] 5 mg PO BID@0800,1700 09/03/19 09/03/19 Bisacodyl [Dulcolax] 10 mg RECTAL DAILY PRN 09/03/19 09/03/19 Ferrous Sulfate [Feosol] 325 mg PO DAILY@1700 09/03/19 09/03/19 Furosemide [Lasix] 20 mg PO DAILY@0800 09/03/19 09/03/19 Ipratropium-Albuterol Nebulize 3 ml INHALATION RT-Q8H PRN 09/03/19 09/03/19 [Duoneb 0.5 mg-3 mg/3 ml Soln] Evelio Packet 1 packet PO BID-W/MEALS 09/03/19 09/03/19 L.acidoph,Paracasei, B.lactis 1 cap PO DAILY@1100 09/03/19 09/03/19 [Probiotic] Liquacel Supplement Drink 30 ml PO DAILY@1200 09/03/19 09/03/19 Magnesium Hydroxide [Milk of 2,400 mg PO DAILY PRN 09/03/19 09/03/19 Magnesia] Na Phos,M-B/Na Phos,Di-Ba [Fleet 133 ml RECTAL ONCE PRN 09/03/19 09/03/19 Adult] Ondansetron [Zofran] 4 mg PO Q8H PRN 09/03/19 09/03/19 Pantoprazole [Protonix] 40 mg PO BID@0800,1700 09/03/19 09/03/19 Polyethylene Glycol 3350 [Miralax] 17 gm PO DAILY@0800 09/03/19 09/03/19 Potassium Chloride 10 meq PO DAILY@1700 09/03/19 09/03/19 Sennosides-Docusate Sodium 2 each PO HS PRN 09/03/19 09/03/19 [Senokot-S] Triamcinolone 0.1% Cream [Kenalog 1 applicatio TOPICAL BID PRN 09/03/19 09/03/19 0.1% Cream] guaiFENesin [Mucinex] 1,200 mg PO Q12H PRN 09/03/19 09/03/19 Previous Rx's Medication Instructions Recorded Lidocaine 4% Cream [Lmx 4] 1 applic TOPICAL Q4H PRN applic 07/30/19 Cefepime HCl [Maxipime] 2 gm IVPB Q12H #84 vial 09/06/19 HYDROcodone/APAP 10-325MG [[place] 1 tab PO Q8H PRN #9 tab 09/07/19 10-325] Midodrine [ProAmatine] 10 mg PO AC-TID tab 09/07/19 Pregabalin [Lyrica] 100 mg PO BID@0800,2100 #6 cap 09/07/19 Sucralfate [Carafate] 1 gm PO AC-TID #90 tab 09/07/19 fentaNYL 12MCG/HR PATCH [Duragesic 1 patch TRANSDERM Q72H #1 patch 09/07/19 12MCG/HR] Allergies Allergy/AdvReac Type Severity Reaction Status Date / Time Penicillins Allergy Rash/Hives Verified 09/03/19 19:00 Review of Systems ROS Statement: Those systems with pertinent positive or pertinent negative responses have been documented in the HPI. ROS Other: All systems not noted in ROS Statement are negative. Past Medical History Past Medical History: Deep Vein Thrombosis (DVT), Fibromyalgia, Rheumatoid Arthritis (RA), Skin Disorder, Thyroid Disorder Additional Past Medical History / Comment(s): "LEAKY BLADDER" ,"POOR CIRCULATION", HX Wound rt foot 3rd toe, bunion on left foot, PAST RT HIP FX-NO SX DONE. History of Any Multi-Drug Resistant Organisms: MRSA Date of last positivie culture/infection: 02/17/18 MDRO Source:: Leg: lower right Past Surgical History: Appendectomy, Cholecystectomy, Tonsillectomy Additional Past Surgical History / Comment(s): Left foot wound debridement. Nodule removed from thyroid. sinus surgery. surgical excision and debridment of sacrum with wound VAC placement on 08/05/15 and sx done(flap) that developed pin hole leak -had 2nd sx to repair". Debridement wound care to right lower extremity wound on 08/21/15. Past Anesthesia/Blood Transfusion Reactions: No Reported Reaction Past Psychological History: No Psychological Hx Reported Smoking Status: Never smoker Past Alcohol Use History: None Reported Past Drug Use History: None Reported - Past Family History Mother Family Medical History: AFIB, Cancer Additional Family Medical History / Comment(s): Past away. skin cancer Father Family Medical History: Liver Disease, Rheumatoid Arthritis (RA) Additional Family Medical History / Comment(s): Leukemia. at age 72 of liver problem. Course Vital Signs 10/09/19 05:16 Temperature 97.8 F Pulse Rate 82 Respiratory 16 Rate Blood Pressure 110/69 O2 Sat by Pulse 98 Oximetry Medical Decision Making - Lab Data Result diagrams: 10/09/19 05:34 10/09/19 05:34 Lab Results 10/09/19 10/09/19 10/09/19 Range/Units 05:34 05:34 05:34 WBC 6.3 (3.8-10.6) k/uL RBC 3.50 L (3.80-5.40) m/uL Hgb 9.4 L (11.4-16.0) gm/dL Hct 30.9 L (34.0-46.0) % MCV 88.2 (80.0-100.0) fL MCH 26.8 (25.0-35.0) pg MCHC 30.4 L (31.0-37.0) g/dL RDW 18.0 H (11.5-15.5) % Plt Count 285 (150-450) k/uL Neutrophils % (Manual) 55 % Lymphocytes % (Manual) 22 % Monocytes % (Manual) 14 % Eosinophils % (Manual) 9 % Neutrophils # (Manual) 3.47 (1.3-7.7) k/uL Lymphocytes # (Manual) 1.39 (1.0-4.8) k/uL Monocytes # (Manual) 0.88 (0-1.0) k/uL Eosinophils # (Manual) 0.57 (0-0.7) k/uL Nucleated RBCs 0 (0-0) /100 WBC Manual Slide Review Performed Hypochromasia Moderate Anisocytosis Slight Fragmented RBCs Present Sodium 135 L (137-145) mmol/L Potassium 4.8 (3.5-5.1) mmol/L Chloride 105 (98-107) mmol/L Carbon Dioxide 22 (22-30) mmol/L Anion Gap 8 mmol/L BUN 86 H (7-17) mg/dL Creatinine 1.87 H (0.52-1.04) mg/dL Est GFR (CKD-EPI)AfAm 31 (>60 ml/min/1.73 sqM) Est GFR (CKD-EPI)NonAf 27 (>60 ml/min/1.73 sqM) Glucose 84 (74-99) mg/dL POC Glucose (mg/dL) 93 (75-99) mg/dL POC Glu Furnace Utility Operator ID Shawn Tyson Calcium 9.9 (8.4-10.2) mg/dL Magnesium 2.3 (1.6-2.3) mg/dL Disposition Clinical Impression: Dehydration, Rash Disposition: HOME SELF-CARE Condition: Good Instructions (If sedation given, give patient instructions): Acute Rash (ED) Is patient prescribed a controlled substance at d/c from ED?: No Referrals: Cierra Moyer MD [Primary Care Provider] - 1-2 days Time of Disposition: 06:29
[2019-10-09 05:36] LABS: Glucose,Whole Blood 93 mg/dL (75-99)
[2019-10-09 05:50] LABS: Calcium 9.9 mg/dL (8.4-10.2); Magnesium 2.3 mg/dL (1.6-2.3); Potassium 4.8 mmol/L (3.5-5.1)
[2019-10-09 06:04] LABS: Anisocytosis Slight; HCT 30.9 % (34.0-46.0); HGB 9.4 gm/dL (11.4-16.0); Hypochromasia Moderate; MCH 26.8 pg (25.0-35.0); MCHC 30.4 g/dL (31.0-37.0); MCV 88.2 fL (80.0-100.0); Mean Platelet Volume 9.7; Platelet Count 285 k/uL (150-450); WBC 6.3 k/uL (3.8-10.6)
[2019-10-09] MEDS ORDERED: SODIUM CHLORIDE 0.9% 1,000 ML IV STA (06:04)
[2019-10-09 06:22] LABS: Eosinophils # (M) 0.57 k/uL (0-0.7); Lymphocytes # (M) 1.39 k/uL (1.0-4.8); Monocytes # (M) 0.88 k/uL (0-1.0); Neutrophils # (M) 3.47 k/uL (1.3-7.7); Neutrophils % (M) 55 %; Nucleated Red Blood Cells 0 /100 WBC (0-0); Total Cells Counted 100
[2019-10-09 06:23] LABS: RBC Fragments Present
[2019-10-09 06:47] VITALS: BP 116/78; PULSE 79
== END 2019-10-09 07:46 | disposition home or self-care (01) ==
LOC: EC 05:12
DX: E86.0 Dehydration (principal); R21 Rash and other nonspecific skin eruption; M06.9 Rheumatoid arthritis, unspecified; M79.7 Fibromyalgia; E07.9 Disorder of thyroid, unspecified; Z79.890 Hormone replacement therapy; Z79.01 Long term (current) use of anticoagulants; Z79.899 Other long term (current) drug therapy; Z88.0 Allergy status to penicillin; Z86.718 Personal history of other venous thrombosis and embolism
CPT/HCPCS: 36415; 80048; 83735; 85025; 93005; 96360; 99285

== ENCOUNTER 2019-10-10 10:20 | Inpatient (IN) | payer MEDICARE ==
[2019-10-10] MEDS ORDERED: SODIUM CHLORIDE 0.9% 500 ML 500 ML IV ONE (10:36)
--- NOTE | 2019-10-10 10:41 | ED ---
Altered Mental Status HPI - General Chief Complaint: Altered Mental Status Stated Complaint: AMS Time Seen by Provider: 10/10/19 10:24 Source: patient, family, EMS, RN notes reviewed Mode of arrival: EMS Limitations: altered mental status, physical limitation - History of Present Illness Initial Comments: This a 69-year-old female presents emergency Department from halfway chief complaint of intermittent confusion. Staff felt that she was having bouts of confusion, slight tremoring no focal weakness. There is some generalized weakness. Patient reportedly was here last 24 hours for rash, itchiness. They felt that she may be having ALLERGIC reaction. Patient has worsened and family room states that she seems to be little more confused than her normal baseline. No reported fever patient is currently being treated for wound on her buttocks, possible osteomyelitis. Patient has been receiving daily IV antibiotics. Patient denies any chest pain or shortness of breath denies any current headache, dizziness or blurred vision or focal weakness. - Related Data Home Medications Medication Instructions Recorded Confirmed Levothyroxine Sodium [Synthroid] 200 mcg PO DAILY@0600 08/26/17 10/10/19 Rivaroxaban [Xarelto] 20 mg PO DAILY@0800 07/10/19 10/10/19 Acetaminophen [Tylenol] 650 mg PO Q4H PRN 09/03/19 10/10/19 Baclofen [Lioresal] 5 mg PO BID@0800,1700 09/03/19 10/10/19 Bisacodyl [Dulcolax] 10 mg RECTAL DAILY PRN 09/03/19 10/10/19 Ferrous Sulfate [Feosol] 325 mg PO DAILY@1700 09/03/19 10/10/19 Ipratropium-Albuterol Nebulize 3 ml INHALATION RT-Q8H PRN 09/03/19 10/10/19 [Duoneb 0.5 mg-3 mg/3 ml Soln] Evelio Packet 1 packet PO BID-W/MEALS 09/03/19 10/10/19 L.acidoph,Paracasei, B.lactis 1 cap PO DAILY@1200 09/03/19 10/10/19 [Probiotic] Magnesium Hydroxide [Milk of 2,400 mg PO DAILY PRN 09/03/19 10/10/19 Magnesia] Na Phos,M-B/Na Phos,Di-Ba [Fleet 133 ml RECTAL DAILY PRN 09/03/19 10/10/19 Adult] Ondansetron [Zofran] 4 mg PO Q8H PRN 09/03/19 10/10/19 Pantoprazole [Protonix] 40 mg PO BID@0800,1700 09/03/19 10/10/19 Polyethylene Glycol 3350 [Miralax] 17 gm PO DAILY@0800 09/03/19 10/10/19 Sennosides-Docusate Sodium 2 tab PO HS PRN 09/03/19 10/10/19 [Senokot-S] Triamcinolone 0.1% Cream [Kenalog 1 applicatio TOPICAL BID 09/03/19 10/10/19 0.1% Cream] guaiFENesin [Mucinex] 1,200 mg PO Q12H PRN 09/03/19 10/10/19 Clotrimazole 1% Cream 1 applic TOPICAL BID 10/10/19 10/10/19 Lactose-Reduced Food [Boost] 237 ml PO BID@0800,1700 10/10/19 10/10/19 Leflunomide [Arava] 20 mg PO DAILY 10/10/19 10/10/19 Medihoney 1 applic TOPICAL DAILY PRN 10/10/19 10/10/19 Medihoney 1 applic TOPICAL MOWEFR 10/10/19 10/10/19 Megan 1 applic TOPICAL DAILY 10/10/19 10/10/19 Saline Moist Promogran 1 applic TOPICAL MOWEFR 10/10/19 10/10/19 Sodium Chloride Irrig Solution 10 ml IV BID 10/10/19 10/10/19 [Saline 0.9% Irrigation] diphenhydrAMINE [Benadryl] 25 mg PO BID PRN 10/10/19 10/10/19 Previous Rx's Medication Instructions Recorded Lidocaine 4% Cream [Lmx 4] 1 applic TOPICAL Q4H PRN applic 07/30/19 Cefepime HCl [Maxipime] 2 gm IVPB Q12H #84 vial 09/06/19 HYDROcodone/APAP 10-325MG [[place] 1 tab PO Q8H PRN #9 tab 09/07/19 10-325] Midodrine [ProAmatine] 10 mg PO AC-TID tab 09/07/19 Pregabalin [Lyrica] 100 mg PO BID@0800,2100 #6 cap 09/07/19 Sucralfate [Carafate] 1 gm PO AC-TID #90 tab 09/07/19 fentaNYL 12MCG/HR PATCH [Duragesic 1 patch TRANSDERM Q72H #1 patch 09/07/19 12MCG/HR] Allergies Allergy/AdvReac Type Severity Reaction Status Date / Time Penicillins Allergy Rash/Hives Verified 09/03/19 19:00 POSITIVE TB REACTOR Allergy Unknown Uncoded 10/10/19 10:45 Review of Systems ROS Statement: Those systems with pertinent positive or pertinent negative responses have been documented in the HPI. ROS Other: All systems not noted in ROS Statement are negative. Past Medical History Past Medical History: Deep Vein Thrombosis (DVT), Fibromyalgia, Rheumatoid Arthritis (RA), Skin Disorder, Thyroid Disorder Additional Past Medical History / Comment(s): "LEAKY BLADDER" ,"POOR CIRCULATION", HX Wound rt foot 3rd toe, bunion on left foot, PAST RT HIP FX-NO SX DONE. History of Any Multi-Drug Resistant Organisms: MRSA Date of last positivie culture/infection: 02/17/18 MDRO Source:: Leg: lower right Past Surgical History: Appendectomy, Cholecystectomy, Tonsillectomy Additional Past Surgical History / Comment(s): Left foot wound debridement. Nodule removed from thyroid. sinus surgery. surgical excision and debridment of sacrum with wound VAC placement on 08/05/15 and sx done(flap) that developed pin hole leak -had 2nd sx to repair". Debridement wound care to right lower ext remity wound on 08/21/15. Past Anesthesia/Blood Transfusion Reactions: No Reported Reaction Past Psychological History: No Psychological Hx Reported Smoking Status: Never smoker Past Alcohol Use History: None Reported Past Drug Use History: None Reported - Past Family History Mother Family Medical History: AFIB, Cancer Additional Family Medical History / Comment(s): Past away. skin cancer Father Family Medical History: Liver Disease, Rheumatoid Arthritis (RA) Additional Family Medical History / Comment(s): Leukemia. at age 72 of liver problem. General Exam Limitations: altered mental status, physical limitation General appearance: alert, in no apparent distress Head exam: Present: atraumatic, normocephalic, normal inspection Eye exam: Present: normal appearance, PERRL, EOMI. Absent: scleral icterus, conjunctival injection, periorbital swelling ENT exam: Present: normal exam, normal oropharynx, mucous membranes moist, TM's normal bilaterally Neck exam: Present: normal inspection, full ROM. Absent: tenderness, meningismus, lymphadenopathy Respiratory exam: Present: normal lung sounds bilaterally. Absent: respiratory distress, wheezes, rales, rhonchi, stridor Cardiovascular Exam: Present: regular rate, normal rhythm, normal heart sounds. Absent: systolic murmur, diastolic murmur, rubs, gallop, clicks GI/Abdominal exam: Present: soft, normal bowel sounds. Absent: distended, tenderness, guarding, rebound, rigid Extremities exam: Present: other (Multiple wounds on the lower extremities no obvious signs of infection, healing pedal pulses equal bilaterally) Neurological exam: Present: alert, oriented X3 (Alert person place and time), CN II-XII intact Skin exam: Present: warm, dry, intact, normal color. Absent: rash Course Vital Signs 10/10/19 10/10/19 10:21 13:03 Temperature 97.9 F 98.2 F Pulse Rate 83 72 Respiratory 19 18 Rate Blood Pressure 140/91 95/68 O2 Sat by Pulse 98 97 Oximetry Medical Decision Making - Medical Decision Making Patient's kidney function continues elevated, elevated BUN and creatinine. Patient has had some intermittent confusion remaining workup was negative this time case discussed with Dr. العراقي who will admit the patient for IV hydration and further evaluation. - Lab Data Result diagrams: 10/10/19 10:27 10/10/19 10:27 Lab Results 10/10/19 10/10/19 10/10/19 Range/Units 10:27 10:27 10:27 WBC 5.7 (3.8-10.6) k/uL RBC 3.19 L (3.80-5.40) m/uL Hgb 8.5 L (11.4-16.0) gm/dL Hct 28.2 L (34.0-46.0) % MCV 88.6 (80.0-100.0) fL MCH 26.7 (25.0-35.0) pg MCHC 30.2 L (31.0-37.0) g/dL RDW 18.3 H (11.5-15.5) % Plt Count 279 (150-450) k/uL Neutrophils % 57 % Lymphocytes % 20 % Monocytes % 9 % Eosinophils % 11 % Basophils % 1 % Neutrophils # 3.3 (1.3-7.7) k/uL Lymphocytes # 1.1 (1.0-4.8) k/uL Monocytes # 0.5 (0-1.0) k/uL Eosinophils # 0.6 (0-0.7) k/uL Basophils # 0.0 (0-0.2) k/uL Manual Slide Review Performed Hypochromasia Marked Poikilocytosis (manual Present Anisocytosis Slight Anisocytosis (manual) Present PT 10.4 (9.0-12.0) sec INR 1.0 (<1.2) APTT 25.9 (22.0-30.0) sec Sodium 139 (137-145) mmol/L Potassium 4.7 (3.5-5.1) mmol/L Chloride 111 H (98-107) mmol/L Carbon Dioxide 21 L (22-30) mmol/L Anion Gap 7 mmol/L BUN 82 H (7-17) mg/dL Creatinine 1.94 H (0.52-1.04) mg/dL Est GFR (CKD-EPI)AfAm 29 (>60 ml/min/1.73 sqM) Est GFR (CKD-EPI)NonAf 26 (>60 ml/min/1.73 sqM) Glucose 81 (74-99) mg/dL Plasma Lactic Acid Darryl (0.7-2.0) mmol/L Calcium 9.6 (8.4-10.2) mg/dL Magnesium (1.6-2.3) mg/dL Total Bilirubin 0.4 (0.2-1.3) mg/dL AST 27 (14-36) U/L ALT 11 (4-34) U/L Alkaline Phosphatase 123 (38-126) U/L Ammonia (<30) umol/L Creatine Kinase <20 L (30-135) U/L Troponin I (0.000-0.034) ng/mL Total Protein 6.1 L (6.3-8.2) g/dL Albumin 2.9 L (3.5-5.0) g/dL Urine Color Urine Appearance (Clear) Urine pH (5.0-8.0) Ur Specific [place] (1.001-1.035) Urine Protein (Negative) Urine Glucose (UA) (Negative) Urine Ketones (Negative) Urine Blood (Negative) Urine Nitrite (Negative) Urine Bilirubin (Negative) Urine Urobilinogen (<2.0) mg/dL Ur Leukocyte Esterase (Negative) Urine RBC (0-5) /hpf Urine WBC (0-5) /hpf Ur Squamous Epith Cells (0-4) /hpf Amorphous Sediment (None) /hpf Urine Bacteria (None) /hpf Urine Mucus (None) /hpf 10/10/19 10/10/19 10/10/19 Range/Units 10:27 10:27 10:27 WBC (3.8-10.6) k/uL RBC (3.80-5.40) m/uL Hgb (11.4-16.0) gm/dL Hct (34.0-46.0) % MCV (80.0-100.0) fL MCH (25.0-35.0) pg MCHC (31.0-37.0) g/dL RDW (11.5-15.5) % Plt Count (150-450) k/uL Neutrophils % % Lymphocytes % % Monocytes % % Eosinophils % % Basophils % % Neutrophils # (1.3-7.7) k/uL Lymphocytes # (1.0-4.8) k/uL Monocytes # (0-1.0) k/uL Eosinophils # (0-0.7) k/uL Basophils # (0-0.2) k/uL Manual Slide Review Hypochromasia Poikilocytosis (manual Anisocytosis Anisocytosis (manual) PT (9.0-12.0) sec INR (<1.2) APTT (22.0-30.0) sec Sodium (137-145) mmol/L Potassium (3.5-5.1) mmol/L Chloride (98-107) mmol/L Carbon Dioxide (22-30) mmol/L Anion Gap mmol/L BUN (7-17) mg/dL Creatinine (0.52-1.04) mg/dL Est GFR (CKD-EPI)AfAm (>60 ml/min/1.73 sqM) Est GFR (CKD-EPI)NonAf (>60 ml/min/1.73 sqM) Glucose (74-99) mg/dL Plasma Lactic Acid Darryl <0.5 L (0.7-2.0) mmol/L Calcium (8.4-10.2) mg/dL Magnesium 2.2 (1.6-2.3) mg/dL Total Bilirubin (0.2-1.3) mg/dL AST (14-36) U/L ALT (4-34) U/L Alkaline Phosphatase (38-126) U/L Ammonia <9 (<30) umol/L Creatine Kinase (30-135) U/L Troponin I <0.012 (0.000-0.034) ng/mL Total Protein (6.3-8.2) g/dL Albumin (3.5-5.0) g/dL Urine Color Urine Appearance (Clear) Urine pH (5.0-8.0) Ur Specific [place] (1.001-1.035) Urine Protein (Negative) Urine Glucose (UA) (Negative) Urine Ketones (Negative) Urine Blood (Negative) Urine Nitrite (Negative) Urine Bilirubin (Negative) Urine Urobilinogen (<2.0) mg/dL Ur Leukocyte Esterase (Negative) Urine RBC (0-5) /hpf Urine WBC (0-5) /hpf Ur Squamous Epith Cells (0-4) /hpf Amorphous Sediment (None) /hpf Urine Bacteria (None) /hpf Urine Mucus (None) /hpf 10/10/19 Range/Units 11:40 WBC (3.8-10.6) k/uL RBC (3.80-5.40) m/uL Hgb (11.4-16.0) gm/dL Hct (34.0-46.0) % MCV (80.0-100.0) fL MCH (25.0-35.0) pg MCHC (31.0-37.0) g/dL RDW (11.5-15.5) % Plt Count (150-450) k/uL Neutrophils % % Lymphocytes % % Monocytes % % Eosinophils % % Basophils % % Neutrophils # (1.3-7.7) k/uL Lymphocytes # (1.0-4.8) k/uL Monocytes # (0-1.0) k/uL Eosinophils # (0-0.7) k/uL Basophils # (0-0.2) k/uL Manual Slide Review Hypochromasia Poikilocytosis (manual Anisocytosis Anisocytosis (manual) PT (9.0-12.0) sec INR (<1.2) APTT (22.0-30.0) sec Sodium (137-145) mmol/L Potassium (3.5-5.1) mmol/L Chloride (98-107) mmol/L Carbon Dioxide (22-30) mmol/L Anion Gap mmol/L BUN (7-17) mg/dL Creatinine (0.52-1.04) mg/dL Est GFR (CKD-EPI)AfAm (>60 ml/min/1.73 sqM) Est GFR (CKD-EPI)NonAf (>60 ml/min/1.73 sqM) Glucose (74-99) mg/dL Plasma Lactic Acid Darryl (0.7-2.0) mmol/L Calcium (8.4-10.2) mg/dL Magnesium (1.6-2.3) mg/dL Total Bilirubin (0.2-1.3) mg/dL AST (14-36) U/L ALT (4-34) U/L Alkaline Phosphatase (38-126) U/L Ammonia (<30) umol/L Creatine Kinase (30-135) U/L Troponin I (0.000-0.034) ng/mL Total Protein (6.3-8.2) g/dL Albumin (3.5-5.0) g/dL Urine Color Light Yellow Urine Appearance Clear (Clear) Urine pH 5.5 (5.0-8.0) Ur Specific [place] 1.014 (1.001-1.035) Urine Protein 1+ H (Negative) Urine Glucose (UA) Negative (Negative) Urine Ketones Negative (Negative) Urine Blood Negative (Negative) Urine Nitrite Negative (Negative) Urine Bilirubin Negative (Negative) Urine Urobilinogen <2.0 (<2.0) mg/dL Ur Leukocyte Esterase Small H (Negative) Urine RBC 1 (0-5) /hpf Urine WBC 7 H (0-5) /hpf Ur Squamous Epith Cells 1 (0-4) /hpf Amorphous Sediment Rare H (None) /hpf Urine Bacteria Rare H (None) /hpf Urine Mucus Rare H (None) /hpf Disposition Clinical Impression: Intermittent confusion, Dehydration, Acute renal failure Disposition: ADMITTED IP TO THIS HOSP Condition: Stable Referrals: Cierra Moyer MD [Primary Care Provider] - 1-2 days
[2019-10-10 10:55] LABS: ALT 11 U/L (4-34); AST 27 U/L (14-36); African American GFR (CKD) 29 (>60 ml/min/1.73 sqM); Albumin 2.9 g/dL (3.5-5.0); Alkaline Phosphatase 123 U/L (38-126); Ammonia <9 umol/L (<30); Anion Gap 7 mmol/L; Anisocytosis Slight; Basophils % (A) 1 %; Blood Urea Nitrogen 82 mg/dL (7-17); Calcium 9.6 mg/dL (8.4-10.2); Carbon Dioxide 21 mmol/L (22-30); Chloride 111 mmol/L (98-107); Creatine Kinase <20 U/L (30-135); Eosinophils # (A) 0.6 k/uL (0-0.7); Eosinophils % (A) 11 %; Glucose 81 mg/dL (74-99); HCT 28.2 % (34.0-46.0); HGB 8.5 gm/dL (11.4-16.0); Hypochromasia Marked; Lactic Acid, Venous <0.5 mmol/L (0.7-2.0); Lymphocytes # (A) 1.1 k/uL (1.0-4.8); Lymphocytes % (A) 20 %; MCH 26.7 pg (25.0-35.0); MCHC 30.2 g/dL (31.0-37.0); MCV 88.6 fL (80.0-100.0); Mean Platelet Volume 9.7; Monocytes # (A) 0.5 k/uL (0-1.0); Monocytes % (A) 9 %; Neutrophils # (A) 3.3 k/uL (1.3-7.7); Neutrophils % (A) 57 %; Non-African American GFR(CKD) 26 (>60 ml/min/1.73 sqM); Platelet Count 279 k/uL (150-450); Potassium 4.7 mmol/L (3.5-5.1); RBC 3.19 m/uL (3.80-5.40); RDW 18.3 % (11.5-15.5); Sodium 139 mmol/L (137-145); Total Bilirubin 0.4 mg/dL (0.2-1.3); Total Protein 6.1 g/dL (6.3-8.2); WBC 5.7 k/uL (3.8-10.6)
[2019-10-10 11:05] LABS: Partial Thromboplastin Time 25.9 sec (22.0-30.0); Prothrombin Time 10.4 sec (9.0-12.0)
[2019-10-10 11:53] LABS: Amorphous Sediment,Urine Rare /hpf; Appearance,Urine Clear (Clear); Bacteria,Urine Rare /hpf; Bilirubin,Urine Negative (Negative); Blood,Urine Negative (Negative); Color,Urine Light Yellow; Glucose,Urine (UA) Negative (Negative); Ketones,Urine Negative (Negative); Leukocyte Esterase,Urine Small (Negative); Mucus,Urine Rare /hpf; Nitrite,Urine Negative (Negative); PH, Urine 5.5 (5.0-8.0); Protein,Urine 1+ (Negative); RBC,Urine 1 /hpf (0-5); Specific Gravity,Urine 1.014 (1.001-1.035); Squamous Epithelial Cell,Urine 1 /hpf (0-4); Urobilinogen,Urine <2.0 mg/dL (<2.0); WBC,Urine 7 /hpf (0-5)
--- NOTE | 2019-10-10 11:57 | CT ---
EXAMINATION TYPE: CT brain wo con DATE OF EXAM: 10/10/2019 COMPARISON: None HISTORY: Fatigue and confusion. CT DLP: 1188.4 mGycm Automated exposure control for dose reduction was used. TECHNIQUE: CT scan of the head is performed without contrast. FINDINGS: There is no acute intracranial hemorrhage or midline shift identified. There is diffuse v entricular and sulcal prominence consistent with diffuse age-related cerebral atrophy. Old punctate l acunar injury of the right cerebellar hemisphere. There there are few areas of low-attenuation in the periventricular white matter consistent with chronic small vessel ischemic change. The globes are i ntact and the visualized sinuses are clear. Cerumen is incidentally noted in the right external aud itory canal. IMPRESSION: No acute intracranial hemorrhage or midline shift. There is diffuse age-related cerebra l atrophy and mild chronic small vessel ischemic change noted.
--- NOTE | 2019-10-10 11:58 | XR ---
EXAMINATION TYPE: XR chest 2V DATE OF EXAM: 10/10/2019 COMPARISON: Prior chest x-ray September 03, 2019. HISTORY: Altered mental status and weakness. TECHNIQUE: Frontal and lateral views of the chest are obtained. FINDINGS: New left-sided PICC line terminating in SVC. There is chronic changes bilaterally without suspicious new focal air space opacity, pleural effusion, or pneumothorax seen. The cardiac silhouet te size remains enlarged. The osseous structures remain demineralized. High riding humeral head sug gests chronic rotator cuff tears bilaterally. IMPRESSION: Chronic parenchymal changes and cardiomegaly without acute pulmonary process.
[2019-10-10 12:23] LABS: Anisocytosis (M) Present; Poikilocytosis (M) Present
[2019-10-10] MEDS ORDERED: NALOXONE 0.4 MG/ML 1 ML VIAL IV PRN (13:17)
[2019-10-10] MEDS ORDERED: ONDANSETRON 4 MG/2 ML VIAL IVP PRN (13:17)
[2019-10-10] MEDS: SODIUM CHLORIDE 0.9% 1,000 ML IV SCH (13:36)
[2019-10-10] MEDS ORDERED: BISACODYL 10 MG SUPP RECTAL PRN (16:50)
[2019-10-10] MEDS ORDERED: NA PHOS,M-B/NA PHOS,DI-BA 133 ML ENEMA RECTAL PRN (16:50)
[2019-10-10] MEDS ORDERED: SENNOSIDES-DOCUSATE SODIUM 1 EACH TAB PO PRN (16:50)
[2019-10-10] MEDS ORDERED: HYDROcodone/APAP 10-325MG 1 EACH TAB PO PRN (16:50)
[2019-10-10] MEDS ORDERED: MAGNESIUM HYDROXIDE 2,400 MG/10 ML CUP PO PRN (16:50)
[2019-10-10] MEDS ORDERED: guaiFENesin 600 MG TABLET.ER PO PRN (16:50)
[2019-10-10] MEDS ORDERED: LIDOCAINE 4% CREAM 5 GM TUBE TOPICAL PRN (16:50)
[2019-10-10] MEDS ORDERED: IPRATROPIUM-ALBUTEROL 3 ML NEB INHALATION PRN (16:50)
[2019-10-10] MEDS ORDERED: ACETAMINOPHEN TAB 325 MG TAB PO PRN (16:50)
[2019-10-10] MEDS ORDERED: NON FORMULARY DRUG (Cefepime Hcl [Maxipime] 2 GM) IVPB SCH (17:00)
[2019-10-10] MEDS ORDERED: CEFEPIME 2 GM in SODIUM CHLORIDE 0.9% 100 ML IVPB SCH (17:15)
[2019-10-10] MEDS ORDERED: JUVEN PO SCH (17:30)
[2019-10-10] MEDS: PANTOPRAZOLE 40 MG TABLET PO SCH (17:56)
[2019-10-10] MEDS: CEFEPIME 2 GM in SODIUM CHLORIDE 0.9% 100 ML IVPB SCH (17:56)
[2019-10-10] MEDS: MIDODRINE 5 MG TAB PO SCH (17:56)
[2019-10-10] MEDS: SUCRALFATE 1 GM TAB PO SCH (17:59)
[2019-10-10] MEDS: PREGABALIN 100 MG CAP PO SCH (20:51)
[2019-10-10] MEDS: TRIAMCINOLONE 0.1% CREAM 80 GM TUBE TOPICAL SCH (20:55)
[2019-10-10] MEDS: CLOTRIMAZOLE 1% CREAM 15 GM TUBE TOPICAL SCH (20:55)
[2019-10-11] MEDS: SODIUM CHLORIDE 0.9% 1,000 ML IV SCH ×3 (03:17→20:13)
[2019-10-11] MEDS: LEVOTHYROXINE 100 MCG TAB PO SCH (05:52)
[2019-10-11] MEDS: POLYETHYLENE GLYCOL 3350 17 GM POWD.PACK PO SCH (08:10)
[2019-10-11] MEDS: PANTOPRAZOLE 40 MG TABLET PO SCH ×2 (08:10→16:32)
[2019-10-11] MEDS: MIDODRINE 5 MG TAB PO SCH ×3 (08:10→16:32)
[2019-10-11] MEDS: SUCRALFATE 1 GM TAB PO SCH ×3 (08:10→16:32)
[2019-10-11] MEDS: LEFLUNOMIDE 20 MG TAB PO SCH (08:11)
[2019-10-11] MEDS: RIVAROXABAN 20 MG TAB PO SCH (08:11)
[2019-10-11] MEDS: PREGABALIN 100 MG CAP PO SCH ×2 (08:15→20:13)
[2019-10-11] MEDS: CLOTRIMAZOLE 1% CREAM 15 GM TUBE TOPICAL SCH ×2 (08:19→20:13)
[2019-10-11] MEDS: TRIAMCINOLONE 0.1% CREAM 80 GM TUBE TOPICAL SCH ×2 (08:19→20:13)
[2019-10-11 08:56] LABS: Anisocytosis Slight; Basophils # (A) 0.1 k/uL (0-0.2); Basophils % (A) 2 %; Eosinophils # (A) 0.5 k/uL (0-0.7); Eosinophils % (A) 8 %; HGB 9.1 gm/dL (11.4-16.0); Hypochromasia Marked; Lymphocytes # (A) 0.9 k/uL (1.0-4.8); Lymphocytes % (A) 14 %; MCH 27.8 pg (25.0-35.0); MCHC 29.4 g/dL (31.0-37.0); Mean Platelet Volume 9.6; Monocytes # (A) 0.6 k/uL (0-1.0); Monocytes % (A) 10 %; Neutrophils # (A) 3.8 k/uL (1.3-7.7); Neutrophils % (A) 63 %; Platelet Count 196 k/uL (150-450); RBC 3.28 m/uL (3.80-5.40); RDW 18.3 % (11.5-15.5); WBC 6.1 k/uL (3.8-10.6)
[2019-10-11] MEDS ORDERED: [UNRECOGNIZED DRUG - OTHER] TOPICAL SCH (09:00)
[2019-10-11 09:06] LABS: MCV 94.6 fL (80.0-100.0)
[2019-10-11 09:20] LABS: Albumin 2.8 g/dL (3.5-5.0); Calcium 9.6 mg/dL (8.4-10.2); Potassium 4.8 mmol/L (3.5-5.1); Total Bilirubin 0.5 mg/dL (0.2-1.3); Total Protein 6.1 g/dL (6.3-8.2)
--- NOTE | 2019-10-11 09:38 | P.CONS ---
History of Present Illness - Reason for Consult Consult date: 10/11/19 Wound care - History of Present Illness This is a 69-year-old patient previously known to the wound care center. However at this time she is being followed in [facility] by Dr. Medina. Patient has past history of ulcerations to bilateral lower extremities, right calcaneus and right buttocks. Patient is being seen today on [address] for nonhealing ulcerations to right calcaneus bilateral lower extremity lateral ulcerations and right gluteus ulceration. Ulcerations are chronic. Patient's past medical history is significant for DVT, fibromyalgia, rheumatoid arthritis, hypothyroid. Denies diabetes and is a nonsmoker. Review of Systems Review Of Systems: Constitutional: No fever, no chills, no night sweats. No weight change. No weakness, fatigue or lethargy. No daytime sleepiness. Integumentary:reports wounds, no lesions. No rash or pruritus. No unusual bruising. No change in hair or nails. Past Medical History Past Medical History: Deep Vein Thrombosis (DVT), Fibromyalgia, Rheumatoid Arthritis (RA), Skin Disorder, Thyroid Disorder Additional Past Medical History / Comment(s): "LEAKY BLADDER","POOR CIRCULATION", HX Wound rt foot 3rd toe, bunion on left foot, PAST RT HIP FX-NO SX DONE. current wounds on right buttock, right heal, and bilateral shins. History of Any Multi-Drug Resistant Organisms: MRSA Year Discovered:: 02/17/18 MDRO Source:: Leg: lower right Past Surgical History: Appendectomy, Cholecystectomy, Tonsillectomy Additional Past Surgical History / Comment(s): Left foot wound debridement. Nodule removed from thyroid. sinus surgery. surgical excision and debridment of sacrum with wound VAC placement on 08/05/15 and sx done(flap) that developed pin hole leak -had 2nd sx to repair". Debridement wound care to right lower extremity wound on 08/21/15. Past Anesthesia/Blood Transfusion Reactions: No Reported Reaction Additional Past Anesthesia/Blood Transfusion Reaction / Comm: Pt has received blood in past without reaction. Past Psychological History: No Psychological Hx Reported Additional Psychological History / Comment(s): pt lives at [facility] Smoking Status: Never smoker Past Alcohol Use History: None Reported Additional Past Alcohol Use History / Comment(s): Patient is a lifelong nonsmoker. She uses a walker at home and takes care of herself. She stand pivots to transfer. Past Drug Use History: None Reported - Past Family History Mother Family Medical History: AFIB, Cancer Additional Family Medical History / Comment(s): Past away. skin cancer Father Family Medical History: Liver Disease, Rheumatoid Arthritis (RA) Additional Family Medical History / Comment(s): Leukemia. at age 72 of pierre er problem. Medications and Allergies Home Medications Medication Instructions Recorded Confirmed Type Levothyroxine Sodium [Synthroid] 200 mcg PO DAILY@0600 08/26/17 10/10/19 History Rivaroxaban [Xarelto] 20 mg PO DAILY@0800 07/10/19 10/10/19 History Lidocaine 4% Cream [Lmx 4] 1 applic TOPICAL Q4H PRN applic 07/30/19 10/10/19 Rx Acetaminophen [Tylenol] 650 mg PO Q4H PRN 09/03/19 10/10/19 History Baclofen [Lioresal] 5 mg PO BID@0800,1700 09/03/19 10/10/19 History Bisacodyl [Dulcolax] 10 mg RECTAL DAILY PRN 09/03/19 10/10/19 History Ferrous Sulfate [Feosol] 325 mg PO DAILY@1700 09/03/19 10/10/19 History Ipratropium-Albuterol Nebulize 3 ml INHALATION RT-Q8H PRN 09/03/19 10/10/19 History [Duoneb 0.5 mg-3 mg/3 ml Soln] Evelio Packet 1 packet PO BID-W/MEALS 09/03/19 10/10/19 History L.acidoph,Paracasei, B.lactis 1 cap PO DAILY@1200 09/03/19 10/10/19 History [Probiotic] Magnesium Hydroxide [Milk of 2,400 mg PO DAILY PRN 09/03/19 10/10/19 History Magnesia] Na Phos,M-B/Na Phos,Di-Ba [Fleet 133 ml RECTAL DAILY PRN 09/03/19 10/10/19 History Adult] Ondansetron [Zofran] 4 mg PO Q8H PRN 09/03/19 10/10/19 History Pantoprazole [Protonix] 40 mg PO BID@0800,1700 09/03/19 10/10/19 History Polyethylene Glycol 3350 [Miralax] 17 gm PO DAILY@0800 09/03/19 10/10/19 History Sennosides-Docusate Sodium 2 tab PO HS PRN 09/03/19 10/10/19 History [Senokot-S] Triamcinolone 0.1% Cream [Kenalog 1 applicatio TOPICAL BID 09/03/19 10/10/19 History 0.1% Cream] guaiFENesin [Mucinex] 1,200 mg PO Q12H PRN 09/03/19 10/10/19 History Cefepime HCl [Maxipime] 2 gm IVPB Q12H #84 vial 09/06/19 10/10/19 Rx HYDROcodone/APAP 10-325MG [Wesley 1 tab PO Q8H PRN #9 tab 09/07/19 10/10/19 Rx 10-325] Midodrine [ProAmatine] 10 mg PO AC-TID tab 09/07/19 10/10/19 Rx Pregabalin [Lyrica] 100 mg PO BID@0800,2100 #6 cap 09/07/19 10/10/19 Rx Sucralfate [Carafate] 1 gm PO AC-TID #90 tab 09/07/19 10/10/19 Rx fentaNYL 12MCG/HR PATCH [Duragesic 1 patch TRANSDERM Q72H #1 patch 09/07/19 10/10/19 Rx 12MCG/HR] Clotrimazole 1% Cream 1 applic TOPICAL BID 10/10/19 10/10/19 History Lactose-Reduced Food [Boost] 237 ml PO BID@0800,1700 10/10/19 10/10/19 History Leflunomide [Arava] 20 mg PO DAILY 10/10/19 10/10/19 History Medihoney 1 applic TOPICAL DAILY PRN 10/10/19 10/10/19 History Medihoney 1 applic TOPICAL MOWEFR 10/10/19 10/10/19 History Megan 1 applic TOPICAL DAILY 10/10/19 10/10/19 History Saline Moist Promogran 1 applic TOPICAL MOWEFR 10/10/19 10/10/19 History Sodium Chloride Irrig Solution 10 ml IV BID 10/10/19 10/10/19 History [Saline 0.9% Irrigation] diphenhydrAMINE [Benadryl] 25 mg PO BID PRN 10/10/19 10/10/19 History Allergies Allergy/AdvReac Type Severity Reaction Status Date / Time Penicillins Allergy Rash/Hives Verified 09/03/19 19:00 POSITIVE TB REACTOR Allergy Unknown Uncoded 10/10/19 10:45 Physical Exam Vitals: Vital Signs Temp Pulse Pulse Resp BP BP Pulse Ox 10/11/19 05:34 98.0 F 85 18 140/78 96 10/10/19 21:40 97.8 F 79 20 132/69 97 10/10/19 16:00 16 10/10/19 14:30 97.9 F 74 16 157/89 97 10/10/19 13:03 98.2 F 72 18 95/68 97 10/10/19 10:21 97.9 F 83 19 140/91 98 Intake and Output 10/10/19 10/11/19 10/11/19 22:59 06:59 14:59 Intake Total 240 Output Total 325 500 Balance -325 -500 240 Intake: Oral 240 Output: Urine 325 500 Other: Voiding Method Incontinent # Voids 1 # Bowel Movements 2 Physical exam: General Appearance: Alert, cooperative, no distress, appears stated age. Skin: Right gluteus ulceration: Measuring approxima by 2 cm with tunneling and undermining, granulation seen throughout the wound bed. Wound edges are unattached. Right calcaneus ulceration measures approximately 0.6 x 1 x 0.3 cm significant Slough noted within the wound bed. Bilateral lower extremity ante rior ulcerations muscle stage of healing open ulcerations have significant Slough with minimal granulation. all other Skin color, texture, tugor normal, no rashes or lesions. Neurologic: Alert oriented x3 Results CBC & Chem 7: 10/11/19 07:43 10/11/19 07:43 Labs: Abnormal Lab Results - Last 24 Hours (Table) 10/10/19 10/10/19 10/10/19 Range/Units 10:27 10:27 10:27 RBC 3.19 L (3.80-5.40) m/uL Hgb 8.5 L (11.4-16.0) gm/dL Hct 28.2 L (34.0-46.0) % MCHC 30.2 L (31.0-37.0) g/dL RDW 18.3 H (11.5-15.5) % Lymphocytes # (1.0-4.8) k/uL Chloride 111 H (98-107) mmol/L Carbon Dioxide 21 L (22-30) mmol/L BUN 82 H (7-17) mg/dL Creatinine 1.94 H (0.52-1.04) mg/dL Glucose (74-99) mg/dL Plasma Lactic Acid Darryl <0.5 L (0.7-2.0) mmol/L Creatine Kinase <20 L (30-135) U/L Total Protein 6.1 L (6.3-8.2) g/dL Albumin 2.9 L (3.5-5.0) g/dL Urine Protein (Negative) Ur Leukocyte Esterase (Negative) Urine WBC (0-5) /hpf Amorphous Sediment (None) /hpf Urine Bacteria (None) /hpf Urine Mucus (None) /hpf 10/10/19 10/11/19 10/11/19 Range/Units 11:40 07:43 07:43 RBC 3.28 L (3.80-5.40) m/uL Hgb 9.1 L (11.4-16.0) gm/dL Hct 31.0 L (34.0-46.0) % MCHC 29.4 L (31.0-37.0) g/dL RDW 18.3 H (11.5-15.5) % Lymphocytes # 0.9 L (1.0-4.8) k/uL Chloride 113 H (98-107) mmol/L Carbon Dioxide 15 L (22-30) mmol/L BUN 75 H (7-17) mg/dL Creatinine 2.10 H (0.52-1.04) mg/dL Glucose 61 L (74-99) mg/dL Plasma Lactic Acid Darryl (0.7-2.0) mmol/L Creatine Kinase (30-135) U/L Total Protein 6.1 L (6.3-8.2) g/dL Albumin 2.8 L (3.5-5.0) g/dL Urine Protein 1+ H (Negative) Ur Leukocyte Esterase Small H (Negative) Urine WBC 7 H (0-5) /hpf Amorphous Sediment Rare H (None) /hpf Urine Bacteria Rare H (None) /hpf Urine Mucus Rare H (None) /hpf Assessment and Plan (1) Pyoderma gangrenosum Current Visit: Yes Status: Acute Code(s): L88 - PYODERMA GANGRENOSUM SNOMED Code(s): 10118220 (2) Venous stasis ulcer of left lower leg with edema of left lower leg Current Visit: No Status: Acute Code(s): I83.029 - VARICOSE VEINS OF LEFT LOWER EXTREMITY W ULCER OF UNSP SITE; I83.892 - VARICOSE VEINS OF L LOW EXTREM WITH OTHER COMPLICATIONS; L97.929 - NON-PRS CHRONIC ULC UNSP PRT OF L LOW LEG W UNSP SEVERITY; R60.9 - EDEMA, UNSPECIFIED SNOMED Code(s): 85833403549304806 (3) Venous stasis ulcer of right lower leg with edema of right lower leg Current Visit: No Status: Acute Code(s): I83.019 - VARICOSE VEINS OF RIGHT LOWER EXTREMITY W ULCER OF UNSP SITE; I83.891 - VARICOSE VEINS OF R LOW EXTREM W ITH OTHER COMPLICATIONS; L97.919 - NON-PRS CHRONIC ULC UNSP PRT OF R LOW LEG W UNSP SEVERITY; R60.9 - EDEMA, UNSPECIFIED SNOMED Code(s): 77835865703198020 (4) Pressure ulcer of left hip, stage 3 Current Visit: Yes Status: Acute Code(s): L89.223 - PRESSURE ULCER OF LEFT HIP, STAGE 3 SNOMED Code(s): 788764379 Plan: Right gluteus ulceration: Apply absorptive silver rope, dry gauze, ABDs and secured with paper tape, change Wednesday. Offload as needed. Right calcaneus, bilateral anterior ulcerations: Apply Santyl, saline moistened gauze, dry gauze, rolled gauze secured with paper tape change daily. Utilize foam boots. Thank you kindly for the consultation. Any questions please contact the wound care center DNP note has been reviewed and discussed with Dr. Adame and the impression and plan of care has been directed as dictated.
[2019-10-11 11:01] VITALS: BMI 32.5
[2019-10-11] MEDS: COLLAGENASE 250 UNIT/GM OINTMENT 30 GM TUBE TOPICAL SCH (11:41)
[2019-10-11] MEDS ORDERED: NON FORMULARY DRUG (L.Acidoph,Paracasei, B.Lactis [Probiotic] 1 CAP) PO SCH (12:00)
--- NOTE | 2019-10-11 13:59 | P.HPIM ---
History of Present Illness H&P Date: 10/11/19 This is a 69-year-old female patient of Dr. Moyer currently at [facility] with past medical history of rheumatoid arthritis, hypothyroidism, DVT, fibromyalgia, multiple decubitus ulcers, MRSA infection, previous admission for GI bleed secondary to antral ulcer, gastritis and duodenitis requiring blood transfusion, hypothyroidism, chronic kidney disease stage II. Patient was recently hospitalized September 03 through September 07 for suspected osteomyelitis of the sacrum ulcer. Patient previous to that was treated for influenza at [facility]. Patient was discharged back to [facility] on cefepime for 6 week course which would be completed on October 17. Patient was initially seen in the emerge ncy center due to rash on October 08 and at that time patient was more sleepy and more difficult to arouse by the custodial staff. Patient was given IV fluids and transferred back to [facility]. Due to continued symptoms of intermittent confusion and tremoring with generalized weakness and rash and concern for ALLERGIC reaction, patient was transferred back to the [facility] ER. Patient did not have any fever, shortness of breath. Patient now presents to [facility] emergency center. Patient was found to be afebrile, blood pressure initially 140/90 1 repeat at 95/68, heart rate in the 70s and 80s, pulse ox 98% on room air. WBC 5.7, hemoglobin 8.5, platelet count 279. Sodium 139, potassium 4.7, chloride 111, CO2 21, BUN 82, creatinine 1.94. Liver function tests within normal limits, CK less than 20, albumin 2.9. Lactic acid less than 0.5, magnesium 2.2, ammonia level less than 9, troponin negative. Urinalysis was clear with leukoesterase small nitrate negative, bacteria rare. Chest x-ray shows chronic parenchymal change, cardiomegaly without acute pulmonary process. CAT scan of the brain showed no acute intracranial hemorrhage or midline shifts. Diffuse age-related cerebral atrophy and mild chronic small vessel ischemic change. Patient admitted to the [facility] floor and started on IV fluids, home medications addressed and cefepime dose adjusted for kidney function. Baclofen, Benadryl held. Consult with Wound Care Team. Review Of Systems: Constitutional: No fever, no chills, no night sweats. No weight change. Reports weakness, fatigue or lethargy. No daytime sleepiness. EENT: No headache. No blurred vision or double vision, no loss of vision. No loss of Hearing, no ringing in the ears, no dizziness. No nasal drainage or congestion. No epistaxis. No sore throat. Lungs: No shortness of breath, cough, no sputum production. No wheezing. Cardiovascular: No chest pain, reports lower extremity wounds. No palpitations. No paroxysmal nocturnal dyspnea. No orthopnea. No lightheadedness or dizziness. No syncopal episodes. Abdominal: No abdominal pain. Reports nausea, denies vomiting. No diarrhea. No constipation. No bloody or tarry stools.. No loss of appetite. Genitourinary: No dysuria, increased frequency, urgency. No urinary retention. Musculoskeletal: No myalgias. No muscle weakness, no gait dysfunction, no frequent falls. No back pain. No neck pain. Integumentary: Reports wounds, no lesions. No rash or pruritus. No unusual bruising. No change in hair or nails. Neurologic: No aphasia. No facial droop. No change in mentation. No head injury. No headache. No paralysis. No paresthesia. Psychiatric: No depression. No anxiety. No mood swings. Endocrine: No abnormal blood sugars. No weight change. No excessive sweating or thirst. No cold intolerance. Past Medical History Past Medical History: Deep Vein Thrombosis (DVT), Fibromyalgia, Rheumatoid Arthritis (RA), Skin Disorder, Thyroid Disorder Additional Past Medical History / Comment(s): "LEAKY BLADDER","POOR CIRCULATION", HX Wound rt foot 3rd toe, bunion on left foot, PAST RT HIP FX-NO SX DONE. current wounds on right buttock, right heal, and bilateral shins. History of Any Multi-Drug Resistant Organisms: MRSA Date of last positivie culture/infection: 02/17/18 MDRO Source:: Leg: lower right Past Surgical History: Appendectomy, Cholecystectomy, Tonsillectomy Additional Past Surgical History / Comment(s): Left foot wound debridement. Nodule removed from thyroid. sinus surgery. surgical excision and debridment of sacrum with wound VAC placement on 08/05/15 and sx done(flap) that developed pin hole leak -had 2nd sx to repair". Debridement wound care to right lower extremity wound on 08/21/15. Past Anesthesia/Blood Transfusion Reactions: No Reported Reaction Additional Past Anesthesia/Blood Transfusion Reaction / Comment(s): Pt has received blood in past without reaction. Past Psychological History: No Psychological Hx Reported Additional Psychological History / Comment(s): pt lives at [facility] Smoking Status: Never smoker Past Alcohol Use History: None Reported Additional Past Alcohol Use History / Comment(s): Patient is a lifelong nonsmoker. She resides at [facility]. Past Drug Use History: None Reported - Past Family History Mother Family Medical History: AFIB, Cancer Additional Family Medical History / Comment(s): Past away. skin cancer Father Family Medical History: Liver Disease, Rheumatoid Arthritis (RA) Additional Family Medical History / Comment(s): Leukemia. at age 72 of liver problem. Medications and Allergies Home Medications Medication Instructions Recorded Confirmed Type Levothyroxine Sodium [Synthroid] 200 mcg PO DAILY@0600 08/26/17 10/10/19 History Rivaroxaban [Xarelto] 20 mg PO DAILY@0800 07/10/19 10/10/19 History Lidocaine 4% Cream [Lmx 4] 1 applic TOPICAL Q4H PRN applic 07/30/19 10/10/19 Rx Acetaminophen [Tylenol] 650 mg PO Q4H PRN 09/03/19 10/10/19 History Baclofen [Lioresal] 5 mg PO BID@0800,1700 09/03/19 10/10/19 History Bisacodyl [Dulcolax] 10 mg RECTAL DAILY PRN 09/03/19 10/10/19 History Ferrous Sulfate [Feosol] 325 mg PO DAILY@1700 09/03/19 10/10/19 History Ipratropium-Albuterol Nebulize 3 ml INHALATION RT-Q8H PRN 09/03/19 10/10/19 History [Duoneb 0.5 mg-3 mg/3 ml Soln] Evelio Packet 1 packet PO BID-W/MEALS 09/03/19 10/10/19 History L.acidoph,Paracasei, B.lactis 1 cap PO DAILY@1200 09/03/19 10/10/19 History [Probiotic] Magnesium Hydroxide [Milk of 2,400 mg PO DAILY PRN 09/03/19 10/10/19 History Magnesia] Na Phos,M-B/Na Phos,Di-Ba [Fleet 133 ml RECTAL DAILY PRN 09/03/19 10/10/19 History Adult] Ondansetron [Zofran] 4 mg PO Q8H PRN 09/03/19 10/10/19 History Pantoprazole [Protonix] 40 mg PO BID@0800,1700 09/03/19 10/10/19 History Polyethylene Glycol 3350 [Miralax] 17 gm PO DAILY@0800 09/03/19 10/10/19 History Sennosides-Docusate Sodium 2 tab PO HS PRN 09/03/19 10/10/19 History [Senokot-S] Triamcinolone 0.1% Cream [Kenalog 1 applicatio TOPICAL BID 09/03/19 10/10/19 History 0.1% Cream] guaiFENesin [Mucinex] 1,200 mg PO Q12H PRN 09/03/19 10/10/19 History Cefepime HCl [Maxipime] 2 gm IVPB Q12H #84 vial 09/06/19 10/10/19 Rx HYDROcodone/APAP 10-325MG [Amity 1 tab PO Q8H PRN #9 tab 09/07/19 10/10/19 Rx 10-325] Midodrine [ProAmatine] 10 mg PO AC-TID tab 09/07/19 10/10/19 Rx Pregabalin [Lyrica] 100 mg PO BID@0800,2100 #6 cap 09/07/19 10/10/19 Rx Sucralfate [Carafate] 1 gm PO AC-TID #90 tab 09/07/19 10/10/19 Rx fentaNYL 12MCG/HR PATCH [Duragesic 1 patch TRANSDERM Q72H #1 patch 09/07/19 10/10/19 Rx 12MCG/HR] Clotrimazole 1% Cream 1 applic TOPICAL BID 10/10/19 10/10/19 History Lactose-Reduced Food [Boost] 237 ml PO BID@0800,1700 10/10/19 10/10/19 History Leflunomide [Arava] 20 mg PO DAILY 10/10/19 10/10/19 History Medihoney 1 applic TOPICAL DAILY PRN 10/10/19 10/10/19 History Medihoney 1 applic TOPICAL MOWEFR 10/10/19 10/10/19 History Megan 1 applic TOPICAL DAILY 10/10/19 10/10/19 History Saline Moist Promogran 1 applic TOPICAL MOWEFR 10/10/19 10/10/19 History Sodium Chloride Irrig Solution 10 ml IV BID 10/10/19 10/10/19 History [Saline 0.9% Irrigation] diphenhydrAMINE [Benadryl] 25 mg PO BID PRN 10/10/19 10/10/19 History Allergies Allergy/AdvReac Type Severity Reaction Status Date / Time Penicillins Allergy Rash/Hives Verified 09/03/19 19:00 POSITIVE TB REACTOR Allergy Unknown Uncoded 10/10/19 10:45 Physical Exam Vitals: Vital Signs Temp Pulse Pulse Resp BP BP Pulse Ox 10/11/19 05:34 98.0 F 85 18 140/78 96 10/10/19 21:40 97.8 F 79 20 132/69 97 10/10/19 16:00 16 10/10/19 14:30 97.9 F 74 16 157/89 97 10/10/19 13:03 98.2 F 72 18 95/68 97 10/10/19 10:21 97.9 F 83 19 140/91 98 Intake and Output 10/10/19 10/11/19 10/11/19 22:59 06:59 14:59 Intake Total 240 Output Total 325 500 Balance -325 -500 240 Intake: Oral 240 Output: Urine 325 500 Other: Voiding Method Incontinent # Voids 1 # Bowel Movements 2 Gen: This is an obese 69-year-old female.patient is resting on edge of bed working with physical therapy and appears to be comfortable and in no acute distress. HEENT: Head is atraumatic, normocephalic. Pupils equal, round. Sclerae is anicteric. oral mucous membranes moist. NECK: Supple. No JVD. No lymphadenopathy. No thyromegaly. LUNGS: Clear to auscultation. No wheezes or rhonchi. No intercostal retractions. HEART: Regular rate and rhythm. No murmur. ABDOMEN: Soft. Obese. Bowel sounds are present. No masses. No tenderness. EXTREMITIES: Right gluteal ulceration, right calcaneal ulceration, bilateral lower extremity anterior ulcerations. Please see nursing documentation for detail. Significant nodular deformities bilateral hands secondary to rheumatoid arthritis. SKIN: Patient has fungal type rash in her skin folds. NEUROLOGICAL: Patient is awake, alert and oriented x3. Cranial nerves 2 through 12 are grossly intact. Results CBC & Chem 7: 10/11/19 07:43 10/11/19 07:43 Labs: Abnormal Lab Results - Last 24 Hours (Table) 10/10/19 10/10/19 10/10/19 Range/Units 10:27 10:27 10:27 RBC 3.19 L (3.80-5.40) m/uL Hgb 8.5 L (11.4-16.0) gm/dL Hct 28.2 L (34.0-46.0) % MCHC 30.2 L (31.0-37.0) g/dL RDW 18.3 H (11.5-15.5) % Chloride 111 H (98-107) mmol/L Carbon Dioxide 21 L (22-30) mmol/L BUN 82 H (7-17) mg/dL Creatinine 1.94 H (0.52-1.04) mg/dL Plasma Lactic Acid Darryl <0.5 L (0.7-2.0) mmol/L Creatine Kinase <20 L (30-135) U/L Total Protein 6.1 L (6.3-8.2) g/dL Albumin 2.9 L (3.5-5.0) g/dL Urine Protein (Negative) Ur Leukocyte Esterase (Negative) Urine WBC (0-5) /hpf Amorphous Sediment (None) /hpf Urine Bacteria (None) /hpf Urine Mucus (None) /hpf 10/10/19 Range/Units 11:40 RBC (3.80-5.40) m/uL Hgb (11.4-16.0) gm/dL Hct (34.0-46.0) % MCHC (31.0-37.0) g/dL RDW (11.5-15.5) % Chloride (98-107) mmol/L Carbon Dioxide (22-30) mmol/L BUN (7-17) mg/dL Creatinine (0.52-1.04) mg/dL Plasma Lactic Acid Darryl (0.7-2.0) mmol/L Creatine Kinase (30-135) U/L Total Protein (6.3-8.2) g/dL Albumin (3.5-5.0) g/dL Urine Protein 1+ H (Negative) Ur Leukocyte Esterase Small H (Negative) Urine WBC 7 H (0-5) /hpf Amorphous Sediment Rare H (None) /hpf Urine Bacteria Rare H (None) /hpf Urine Mucus Rare H (None) /hpf Thrombosis Risk Factor Assmnt - DVT/VTE Prophylaxis DVT/VTE Prophylaxis: Pharmacologic Prophylaxis ordered - Choose All That Apply Each Factor Represents 1 point: Obesity (BMI >25) Each Risk Factor Represents 2 Points: Age 61-74 years Other congenital or acquired thrombophilia - If yes, enter type in comment: No Thrombosis Risk Factor Assessment Total Risk Factor Score: 3 Thrombosis Risk Factor Assessment Level: Moderate Risk Assessment and Plan Plan: 1. Acute kidney injury with chronic kidney disease stage II. Cefepime dosing adjusted. Avoid nephrotoxic agents. Continue IV fluids 0.9 normal saline at 75 mL per hour. Recheck Ambien the morning. 2. Rash with urticaria with concern for ALLERGIC reaction. Only noted rash is a fungal type rash in skin folds. 3. Metabolic encephalopathy reported at the custodial. Patient's mental status is now at baseline. 4. Stage IV decubitus ulcer right buttocks with osteomyelitis, present on admission. Wound care team consult appreciated. Patient is on cefepime which w ill be completed on October 17. 5. Chronic bilateral lower extremity ulcers secondary to peripheral vascular disease, right heel unstageable, present on admission. 6. Anemia of chronic disease, baseline hemoglobin appears to be 8. 7. Rheumatoid arthritis with chronic pain. Continue Arava, fentanyl patch 12 micrograms every 72 hours, Amity 10 one every 6 hours, Lyrica 100 mg twice daily, baclofen on hold. 8. History of DVT. Xarelto 20 mg daily. 9. Hypothyroidism. Continue levothyroxine 200 g daily. 10. Anemia of chronic disease. Continue ferrous sulfate 325 mg twice daily. 11. Chronic Charles catheter. 12. DVT prophylaxis. Xarelto. 13. GI prophylaxis. Protonix, Carafate. Patient will be admitted to the hospital for a minimum of 2 night stay. Discharge plan: Return to [facility]. Impression and plan of care have been directed as dictated by the signing physician. Arlene Darnell nurse practitioner acting as scribe for signing physician.
[2019-10-11] MEDS: CEFEPIME 2 GM in SODIUM CHLORIDE 0.9% 100 ML IVPB SCH (16:32)
[2019-10-12] MEDS: LEVOTHYROXINE 100 MCG TAB PO SCH (05:00)
[2019-10-12] MEDS: RIVAROXABAN 20 MG TAB PO SCH (08:15)
[2019-10-12] MEDS: MIDODRINE 5 MG TAB PO SCH ×3 (08:15→16:15)
[2019-10-12] MEDS: PANTOPRAZOLE 40 MG TABLET PO SCH ×2 (08:15→16:15)
[2019-10-12] MEDS: PREGABALIN 100 MG CAP PO SCH (08:15)
[2019-10-12] MEDS: COLLAGENASE 250 UNIT/GM OINTMENT 30 GM TUBE TOPICAL SCH (08:16)
[2019-10-12] MEDS: LEFLUNOMIDE 20 MG TAB PO SCH (08:16)
[2019-10-12] MEDS: CLOTRIMAZOLE 1% CREAM 15 GM TUBE TOPICAL SCH ×2 (08:16→20:53)
[2019-10-12] MEDS: TRIAMCINOLONE 0.1% CREAM 80 GM TUBE TOPICAL SCH ×2 (08:16→20:53)
[2019-10-12] MEDS: SUCRALFATE 1 GM TAB PO SCH ×3 (08:16→16:15)
[2019-10-12] MEDS: POLYETHYLENE GLYCOL 3350 17 GM POWD.PACK PO SCH (08:16)
--- NOTE | 2019-10-12 11:13 | US ---
EXAMINATION TYPE: US kidneys/renal and bladder DATE OF EXAM: 10/12/2019 COMPARISON: CT 2017 CLINICAL HISTORY: ANABELLA. ANABELLA, history of horseshoe kidney, exam done portable. EXAM MEASUREMENTS: Right Kidney: 11.0 x 4.2 x 4.4 cm Left Kidney: 10.9 x 3.6 x 5.2 cm Difficult and limited study due to patient body habitus Right Kidney: no hydronephrosis or masses seen Left Kidney: no hydronephrosis or masses seen Bladder: wnl Bilateral Jets seen: no Cortical measured differentiation is maintained. There is a horseshoe kidney. No evident renal calcif ication. IMPRESSION: Horseshoe kidney. Ureteral jets were not observed in the urinary bladder.
--- NOTE | 2019-10-12 15:08 | P.PN ---
Subjective Progress Note Date: 10/12/19 This is a 69-year-old female patient of Dr. Moyer currently at [facility] with past medical history of rheumatoid arthritis, hypothyroidism, DVT, fibromyalgia, multiple decubitus ulcers, MRSA infection, previous admission for GI bleed secondary to antral ulcer, gastritis and duodenitis requiring blood transfusion, hypothyroidism, chronic kidney disease stage II. Patient was recently hospitalized September 03 through September 07 for suspected osteomyelitis of the sacrum ulcer. Patient previous to that was treated for influenza at [facility]. Patient was discharged back to [facility] on cefepime for 6 week course which would be completed on October 17. Patient was initially seen in the emergency center due to rash on October 08 and at that time patient was more sleepy and more difficult to arouse by the [facility] staff. Patient was given IV fluids and transferred back to [facility]. Due to continued symptoms of intermittent confusion and tremoring with generalized weakness and rash and concern for ALLERGIC reaction, patient was transferred back to the [facility] ER. Patient did not have any fever, shortness of breath. Patient now presents to [facility] emergency center. Patient was found to be afebrile, blood pressure initially 140/90 1 repeat at 95/68, heart rate in the 70s and 80s, pulse ox 98% on room air. WBC 5.7, hemoglobin 8.5, platelet count 279. Sodium 139, potassium 4.7, chloride 111, CO2 21, BUN 82, creatinine 1.94. Liver function tests within normal limits, CK less than 20, albumin 2.9. Lactic acid less than 0.5, magnesium 2.2, ammonia level less than 9, troponin negative. Urinalysis was clear with leukoesterase small nitrate negative, bacteria rare. Chest x-ray shows chronic parenchymal change, cardiomegaly without acute pulmonary process. CAT scan of the brain showed no acute intracranial hemorrhage or midline shifts. Diffuse age-related cerebral atrophy and mild chronic small vessel ischemic change. Patient admitted to the MedSur floor and started on IV fluids, home medications addressed and cefepime dose adjusted for kidney function. Baclofen, Benadryl held. Consult with Wound Care Team. 10/11: Repeat lab work today reveals BUN 75, creatinine 2.1, sodium 139, potassium 4.8, chloride 113, CO2 15. WBC normal, hemoglobin 9.1. Patient has been afebrile, heart rate 87, blood pressure 130/81, pulse ox 96% on room air. She denies any CVA tenderness. Patient had a bowel movement this morning and 2 yesterday.Renal ultrasound ordered. Renal ultrasound reveals sore shoe kidney. Ureteral jets not observed in the urinary bladder. Patient complains of abdominal bloating but no pain. No CVA pain. Objective - Vital Signs Vital signs: Vital Signs Temp 98.0 F 10/12/19 06:23 Pulse 87 10/12/19 06:23 Resp 18 10/12/19 06:23 BP 130/81 10/12/19 06:23 Pulse Ox 96 10/12/19 06:23 Intake & Output 10/11/19 10/12/19 10/12/19 18:59 06:59 18:59 Intake Total 720 Output Total 1000 Balance 720 -1000 Weight 99.79 kg Intake: Oral 720 Output: Urine 1000 Other: Voiding Method Incontinent Incontinent # Voids 500 # Bowel Movements 2 1 - Exam Review Of Systems: Constitutional: No fever, no chills, no night sweats. No weight change. Reports weakness, fatigue or lethargy. No daytime sleepiness. EENT: No headache. No blurred vision or double vision, no loss of vision. No loss of Hearing, no ringing in the ears, no dizziness. No nasal drainage or congestion. No epistaxis. No sore throat. Lungs: No shortness of breath, cough, no sputum production. No wheezing. Cardiovascular: No chest pain, reports lower extremity wounds. No palpitations. No paroxysmal nocturnal dyspnea. No orthopnea. No lightheadedness or dizziness. No syncopal episodes. Abdominal: No abdominal pain. Reports abdominal bloating. Denies nausea, denies vomiting. No diarrhea. No constipation. No bloody or tarry stools.. No loss of appetite. Genitourinary: No dysuria, increased frequency, urgency. No urinary retention. Musculoskeletal: No myalgias. No muscle weakness, no gait dysfunction, no frequent falls. No back pain. No neck pain. Integumentary: Reports wounds, no lesions. No rash or pruritus. No unusual bruising. No change in hair or nails. Neurologic: No aphasia. No facial droop. No change in mentation. No head injury. No headache. No paralysis. No paresthesia. Psychiatric: No depression. No anxiety. No mood swings. Endocrine: No abnormal blood sugars. No weight change. No excessive sweating or thirst. No cold intolerance. Physical examination Gen: This is an obese 69-year-old female. Patient is resting in bed and appears to be comfortable and in no acute distress. HEENT: Head is atraumatic, normocephalic. Pupils equal, round. Sclerae is anicteric. oral mucous membranes moist. NECK: Supple. No JVD. No lymphadenopathy. No thyromegaly. LUNGS: Clear to auscultation. No wheezes or rhonchi. No intercostal retractions. HEART: Regular rate and rhythm. No murmur. ABDOMEN: Soft. Obese. Bowel sounds are present. No masses. No tenderness. EXTREMITIES: Right gluteal ulceration, right calcaneal ulceration, bilateral lower extremity anterior ulcerations. Please see nursing documentation for detail. Significant nodular deformities bilateral hands secondary to rheumatoid arthritis. SKIN: Patient has fungal type rash in her skin folds. NEUROLOGICAL: Patient is awake, alert and oriented x3. Cranial nerves 2 through 12 are grossly intact. - Labs CBC & Chem 7: 10/11/19 07:43 10/11/19 07:43 Labs: Abnormal Lab Results - Last 24 Hours (Table) 10/11/19 Range/Units 07:43 Chloride 113 H (98-107) mmol/L Carbon Dioxide 15 L (22-30) mmol/L BUN 75 H (7-17) mg/dL Creatinine 2.10 H (0.52-1.04) mg/dL Glucose 61 L (74-99) mg/dL Total Protein 6.1 L (6.3-8.2) g/dL Albumin 2.8 L (3.5-5.0) g/dL Assessment and Plan Plan: 1. Acute kidney injury with chronic kidney disease stage II. Cefepime dosing adjusted. Avoid nephrotoxic agents. Continue IV fluids 0.9 normal saline at 75 mL per hour. Recheck BMP in the morning. Renal ultrasound as above. 2. Rash with urticaria with concern for ALLERGIC reaction. Only noted rash is a fungal type rash in skin folds. 3. Metabolic encephalopathy reported at the [facility]. Patient's mental status is now at baseline. 4. Stage IV decubitus ulcer right buttocks with osteomyelitis, present on admission. Wound care team consult appreciated. Patient is on cefepime which will be completed on October 17. 5. Chronic bilateral lower extremity ulcers secondary to peripheral vascular disease, right heel unstageable, present on admission. 6. Anemia of chronic disease, baseline hemoglobin appears to be 8. 7. Rheumatoid arthritis with chronic pain. Continue Arava, fentanyl patch 12 micrograms every 72 hours, Mead 10 one every 6 hours, Lyrica 100 mg twice daily, baclofen on hold. 8. History of DVT. Xarelto 20 mg daily. 9. Hypothyroidism. Continue levothyroxine 200 g daily. 10. Anemia of chronic disease. Continue ferrous sulfate 325 mg twice daily. 11. Chronic Charles catheter. 12. DVT prophylaxis. Xarelto. 13. GI prophylaxis. Protonix, Carafate. Discharge plan: Return to [facility]. Impression and plan of care have been directed as dictated by the signing physician. Arlene Darnell nurse practitioner acting as scribe for signing physician.
[2019-10-12] MEDS: CEFEPIME 2 GM in SODIUM CHLORIDE 0.9% 100 ML IVPB SCH (16:15)
[2019-10-12] MEDS: SODIUM CHLORIDE 0.9% 1,000 ML IV SCH (16:19)
[2019-10-12] MEDS: PREGABALIN 50 MG CAP PO SCH (20:53)
[2019-10-13] MEDS: LEVOTHYROXINE 100 MCG TAB PO SCH (05:01)
[2019-10-13 06:15] VITALS: BP 146/85; PULSE 79; RESP 18; TEMP 97.9
[2019-10-13] MEDS: TRIAMCINOLONE 0.1% CREAM 80 GM TUBE TOPICAL SCH (08:27)
[2019-10-13] MEDS: SUCRALFATE 1 GM TAB PO SCH ×2 (08:27→11:59)
[2019-10-13] MEDS: MIDODRINE 5 MG TAB PO SCH ×2 (08:27→11:59)
[2019-10-13] MEDS: PREGABALIN 50 MG CAP PO SCH (08:27)
[2019-10-13] MEDS: COLLAGENASE 250 UNIT/GM OINTMENT 30 GM TUBE TOPICAL SCH (08:27)
[2019-10-13] MEDS: LEFLUNOMIDE 20 MG TAB PO SCH (08:27)
[2019-10-13] MEDS: SODIUM CHLORIDE 0.9% 1,000 ML IV SCH (08:27)
[2019-10-13] MEDS: RIVAROXABAN 20 MG TAB PO SCH (08:27)
[2019-10-13] MEDS: CLOTRIMAZOLE 1% CREAM 15 GM TUBE TOPICAL SCH (08:27)
[2019-10-13] MEDS: PANTOPRAZOLE 40 MG TABLET PO SCH (08:27)
[2019-10-13] MEDS: POLYETHYLENE GLYCOL 3350 17 GM POWD.PACK PO SCH (08:27)
[2019-10-13 10:36] LABS: Calcium 9.7 mg/dL (8.4-10.2); Potassium 4.3 mmol/L (3.5-5.1)
--- NOTE | 2019-10-13 11:19 | P.DS ---
Providers Date of admission: 10/10/19 13:08 Expected date of discharge: 10/13/19 Attending physician: Janes Wilkins MD Primary care physician: Cierra Moyer [facility] Course: This is a 69-year-old female patient of Dr. Moyer currently at [facility] with past medical history of rheumatoid arthritis, hypothyroidism, DVT, fibromyalgia, multiple decubitus ulcers, MRSA infection, previous admission for GI bleed secondary to antral ulcer, gastritis and duodenitis requiring blood transfusion, hypothyroidism, chronic kidney disease stage II. Patient was recently hospitalized September 03 through September 07 for suspected osteomyelitis of the sacrum ulcer. Patient previous to that was treated for influenza at [facility]. Patient was discharged back to [facility] on cefepime for 6 week course which would be completed on October 17. Patient was initially seen in the emergency center due to rash on October 08 and at that time patient was more sleepy and more difficult to arouse by the [facility] staff. Patient was given IV fluids and transferred back to [facility]. Due to continued symptoms of intermittent confusion and tremoring with generalized weakness and rash and concern for ALLERGIC reaction, patient was transferred back to the [facility] ER. Patient did not have any fever, shortness of breath. Patient now presents to [facility] emergency center. Patient was found to be afebrile, blood pressure initially 140/90 1 repeat at 95/68, heart rate in the 70s and 80s, pulse ox 98% on room air. WBC 5.7, hemoglobin 8.5, platelet count 279. Sodium 139, potassium 4.7, chloride 111, CO2 21, BUN 82, creatinine 1.94. Liver function tests within normal limits, CK less than 20, albumin 2.9. Lactic acid less than 0.5, magnesium 2.2, ammonia level less than 9, troponin negative. Urinalysis was clear with leukoesterase small nitrate negative, bacteria rare. Chest x-ray shows chronic parenchymal change, cardiomegaly without acute pulmonary process. CAT scan of the brain showed no acute intracranial hemorrhage or midline shifts. Diffuse age-related cerebral atrophy and mild chronic small vessel ischemic change. Patient admitted to the MedSur floor and started on IV fluids, home medications addressed and cefepime dose adjusted for kidney function. Baclofen, Benadryl held. Consult with Wound Care Team. 10/11: Repeat lab work today reveals BUN 75, creatinine 2.1, sodium 139, potassium 4.8, chloride 113, CO2 15. WBC normal, hemoglobin 9.1. Patient has been afebrile, heart rate 87, blood pressure 130/81, pulse ox 96% on room air. She denies any CVA tenderness. Patient had a bowel movement this morning and 2 yesterday.Renal ultrasound ordered. Renal ultrasound reveals sore shoe kidney. Ureteral jets not observed in the urinary bladder. Patient complains of abdominal bloating but no pain. No CVA pain. 10/12: Patient states that she felt lightheaded this morning. No complaints at the time of evaluation. Multiple medications have been adjusted during her stay. Lyrica has been decreased to 50 mg twice daily with plan to taper this to once daily, fentanyl has been discontinued and baclofen discontinued. Patient denies any complaints of pain. Repeat lab work reveals chloride 109, CO2 21, BUN 63 and creatinine 2.04. Patient will be discharged back to [facility]. Patient will continue her course of cefepime and add new dosing once daily. She will be completed on October 17. Patient is to continue previous wound care. Patient will be discharged today in stable condition. Discharge diagnoses: 1. Acute kidney injury with chronic kidney disease stage II. 2. Rash with urticaria with concern for ALLERGIC reaction. 3. Metabolic encephalopathy reported at the [facility]. 4. Stage IV decubitus ulcer right buttocks with osteomyelitis, present on admission. 5. Chronic bilateral lower extremity ulcers secondary to peripheral vascular disease, right heel unstageable, present on admission. 6. Anemia of chronic disease, baseline hemoglobin appears to be 8. 7. Rheumatoid arthritis with chronic pain. 8. History of DVT. 9. Hypothyroidism. 10. Anemia of chronic disease. 11. Chronic Charles catheter. Discharge plan: Return to [facility]. Impression and plan of care have been directed as dictated by the signing physician. Arlene Darnell nurse practitioner acting as scribe for signing physician. Patient Condition at Discharge: Good Plan - Discharge Summary Discharge Rx Participant: No New Discharge Prescriptions: New Pregabalin [Lyrica] 50 mg PO BID@0800,2100 #6 cap Collagenase [Santyl] 1 applic TOPICAL DAILY applic Continue Levothyroxine Sodium [Synthroid] 200 mcg PO DAILY@0600 Rivaroxaban [Xarelto] 20 mg PO DAILY@0800 Lidocaine 4% Cream [Lmx 4] 1 applic TOPICAL Q4H PRN applic PRN Reason: Pain Ondansetron [Zofran] 4 mg PO Q8H PRN PRN Reason: Nausea Na Phos,M-B/Na Phos,Di-Ba [Fleet Adult] 133 ml RECTAL DAILY PRN PRN Reason: Constipation Magnesium Hydroxide [Milk of Magnesia] 2,400 mg PO DAILY PRN PRN Reason: Constipation Bisacodyl [Dulcolax] 10 mg RECTAL DAILY PRN PRN Reason: Constipation Acetaminophen [Tylenol] 650 mg PO Q4H PRN PRN Reason: Pain Ipratropium-Albuterol Nebulize [Duoneb 0.5 mg-3 mg/3 ml Soln] 3 ml INHALATION RT-Q8H PRN PRN Reason: Shortness Of Breath Triamcinolone 0.1% Cream [Kenalog 0.1% Cream] 1 applicatio TOPICAL BID Pantoprazole [Protonix] 40 mg PO BID@0800,1700 Evelio Packet 1 packet PO BID-W/MEALS guaiFENesin [Mucinex] 1,200 mg PO Q12H PRN PRN Reason: Shortness Of Breath Sennosides-Docusate Sodium [Senokot-S] 2 tab PO HS PRN PRN Reason: Constipation L.acidoph,Paracasei, B.lactis [Probiotic] 1 cap PO DAILY@1200 Polyethylene Glycol 3350 [Miralax] 17 gm PO DAILY@0800 Ferrous Sulfate [Feosol] 325 mg PO DAILY@1700 Sucralfate [Carafate] 1 gm PO AC-TID #90 tab Midodrine [ProAmatine] 10 mg PO AC-TID tab Saline Moist Promogran 1 applic TOPICAL MOWEFR Megan 1 applic TOPICAL DAILY Medihoney 1 applic TOPICAL MOWEFR diphenhydrAMINE [Benadryl] 25 mg PO BID PRN PRN Reason: Itching Sodium Chloride Irrig Solution [Saline 0.9% Irrigation] 10 ml IV BID Clotrimazole 1% Cream 1 applic TOPICAL BID Lactose-Reduced Food [Boost] 237 ml PO BID@0800,1700 Leflunomide [Arava] 20 mg PO DAILY Medihoney 1 applic TOPICAL DAILY PRN PRN Reason: WOUNDS HYDROcodone/APAP 10-325MG [Houston 10-325] 1 tab PO Q8H PRN #9 tab PRN Reason: Pain Changed Cefepime HCl [Maxipime] 2 gm IVPB DAILY #84 vial Discontinued Baclofen [Lioresal] 5 mg PO BID@0800,1700 fentaNYL 12MCG/HR PATCH [Duragesic 12MCG/HR] 1 patch TRANSDERM Q72H #1 patch Pregabalin [Lyrica] 100 mg PO BID@0800,2100 #6 cap Discharge Medication List Levothyroxine Sodium [Synthroid] 200 mcg PO DAILY@0600 08/26/17 [History] Rivaroxaban [Xarelto] 20 mg PO DAILY@0800 07/10/19 [History] Lidocaine 4% Cream [Lmx 4] 1 applic TOPICAL Q4H PRN applic 07/30/19 [Rx] Acetaminophen [Tylenol] 650 mg PO Q4H PRN 09/03/19 [History] Bisacodyl [Dulcolax] 10 mg RECTAL DAILY PRN 09/03/19 [History] Ferrous Sulfate [Feosol] 325 mg PO DAILY@1700 09/03/19 [History] Ipratropium-Albuterol Nebulize [Duoneb 0.5 mg-3 mg/3 ml Soln] 3 ml INHALATION RT-Q8H PRN 09/03/19 [History] Evelio Packet 1 packet PO BID-W/MEALS 09/03/19 [History] L.acidoph,Paracasei, B.lactis [Probiotic] 1 cap PO DAILY@1200 09/03/19 [History] Magnesium Hydroxide [Milk of Magnesia] 2,400 mg PO DAILY PRN 09/03/19 [History] Na Phos,M-B/Na Phos,Di-Ba [Fleet Adult] 133 ml RECTAL DAILY PRN 09/03/19 [History] Ondansetron [Zofran] 4 mg PO Q8H PRN 09/03/19 [History] Pantoprazole [Protonix] 40 mg PO BID@0800,1700 09/03/19 [History] Polyethylene Glycol 3350 [Miralax] 17 gm PO DAILY@0800 09/03/19 [History] Sennosides-Docusate Sodium [Senokot-S] 2 tab PO HS PRN 09/03/19 [History] Triamcinolone 0.1% Cream [Kenalog 0.1% Cream] 1 applicatio TOPICAL BID 09/03/19 [History] guaiFENesin [Mucinex] 1,200 mg PO Q12H PRN 09/03/19 [History] Midodrine [ProAmatine] 10 mg PO AC-TID tab 09/07/19 [Rx] Sucralfate [Carafate] 1 gm PO AC-TID #90 tab 09/07/19 [Rx] Clotrimazole 1% Cream 1 applic TOPICAL BID 10/10/19 [History] Lactose-Reduced Food [Boost] 237 ml PO BID@0800,1700 10/10/19 [History] Leflunomide [Arava] 20 mg PO DAILY 10/10/19 [History] Medihoney 1 applic TOPICAL DAILY PRN 10/10/19 [History] Medihoney 1 applic TOPICAL MOWEFR 10/10/19 [History] Megan 1 applic TOPICAL DAILY 10/10/19 [History] Saline Moist Promogran 1 applic TOPICAL MOWEFR 10/10/19 [History] Sodium Chloride Irrig Solution [Saline 0.9% Irrigation] 10 ml IV BID 10/10/19 [History] diphenhydrAMINE [Benadryl] 25 mg PO BID PRN 10/10/19 [History] Cefepime HCl [Maxipime] 2 gm IVPB DAILY #84 vial 10/13/19 [Rx] Collagenase [Santyl] 1 applic TOPICAL DAILY applic 10/13/19 [Rx] HYDROcodone/APAP 10-325MG [[place] 10-325] 1 tab PO Q8H PRN #9 tab 10/13/19 [Rx] Pregabalin [Lyrica] 50 mg PO BID@0800,2100 #6 cap 10/13/19 [Rx] Follow up Appointment(s)/Referral(s): Cierra Moyer MD [Primary Care Provider] - 1 Week (at [facility])
== END 2019-10-13 13:27 | DRG 682 ==
LOC: EC 10:20 → 6NMEDSUR 13:08
PROVIDERS: ADMIT Internal Medicine; ATTEND Internal Medicine
DX: N17.9 Acute kidney failure, unspecified (principal); L89.314 Pressure ulcer of right buttock, stage 4; L89.223 Pressure ulcer of left hip, stage 3; G93.41 Metabolic encephalopathy; M86.9 Osteomyelitis, unspecified; L88 Pyoderma gangrenosum; L97.919 Non-pressure chronic ulcer of unspecified part of right lower leg with unspecified severity; L97.929 Non-pressure chronic ulcer of unspecified part of left lower leg with unspecified severity; N18.2 Chronic kidney disease, stage 2 (mild); L89.610 Pressure ulcer of right heel, unstageable; D63.8 Anemia in other chronic diseases classified elsewhere; E03.9 Hypothyroidism, unspecified; E86.0 Dehydration; G89.29 Other chronic pain; I73.9 Peripheral vascular disease, unspecified; I83.018 Varicose veins of right lower extremity with ulcer other part of lower leg; I83.028 Varicose veins of left lower extremity with ulcer other part of lower leg; L50.9 Urticaria, unspecified; T78.40XA Allergy, unspecified, initial encounter; M06.9 Rheumatoid arthritis, unspecified; M79.7 Fibromyalgia; Z79.01 Long term (current) use of anticoagulants; Z79.890 Hormone replacement therapy; Z79.899 Other long term (current) drug therapy; Z80.6 Family history of leukemia; Z80.8 Family history of malignant neoplasm of other organs or systems; Z86.14 Personal history of Methicillin resistant Staphylococcus aureus infection; Z86.718 Personal history of other venous thrombosis and embolism; Z87.11 Personal history of peptic ulcer disease; Z82.61 Family history of arthritis; Z82.49 Family history of ischemic heart disease and other diseases of the circulatory system; Z88.0 Allergy status to penicillin
CPT/HCPCS: 36415; 70450; 71046; 76770; 80048; 80053; 81001; 82140; 82550; 83605; 83735; 84484; 85025; 85610; 85730; 93005; 96360; 96374; 99285

== ENCOUNTER → 2020-02-05 | Day surgery (SDC) | payer MEDICARE, OTHER ==
[2020-02-02 12:19] VITALS: BMI 34.0
[~2020-02-05] MED LIST changes: +HYDROcodone/APAP 10-325MG 1 EACH TAB ONE; +LIDOCAINE 1% INJ 10MG/ML (20 ML MDV) SQ ONE; -REGADENOSON 0.4 MG/5 ML SYRINGE IV ONE
[2020-02-05 12:07] LABS: Anisocytosis Slight; Basophils % (A) 0 %; Eosinophils # (A) 0.1 k/uL (0-0.7); Eosinophils % (A) 0 %; HCT 23.9 % (34.0-46.0); Hypochromasia Marked; Lymphocytes # (A) 0.4 k/uL (1.0-4.8); Lymphocytes % (A) 2 %; MCH 23.5 pg (25.0-35.0); MCHC 27.9 g/dL (31.0-37.0); MCV 84.4 fL (80.0-100.0); Mean Platelet Volume 7.4; Monocytes # (A) 0.7 k/uL (0-1.0); Monocytes % (A) 3 %; Neutrophils # (A) 21.5 k/uL (1.3-7.7); Neutrophils % (A) 94 %; Platelet Count 460 k/uL (150-450); RBC 2.83 m/uL (3.80-5.40); RDW 18.2 % (11.5-15.5); WBC 22.7 k/uL (3.8-10.6)
[2020-02-05 12:10] LABS: HGB 6.7 gm/dL (11.4-16.0)
[2020-02-05 12:11] LABS: Calcium 9.1 mg/dL (8.4-10.2); Potassium 4.6 mmol/L (3.5-5.1)
--- NOTE | 2020-02-05 16:39 | IR ---
EXAMINATION TYPE: IR cvc insert >=5 years DATE OF EXAM: 02/05/2020 COMPARISON: NONE CLINICAL HISTORY: Infection Needs long-term intravenous access for antibiotics. PROCEDURE: Hand hygiene obtained with soap and water and alcohol-based hand rub. After informed consent, the skin overlying the left brachial vein was localized with ultrasound and n oted to be compressible and patent. An ultrasound image was obtained and submitted on the patient's chart. The overlying skin was prepped and draped and Lidocaine was used for local anesthesia. A ski n alyssa was made with a scalpel. Access was gained to the vein under ultrasound guidance with a 21 ga uge needle and a 0.018 inch wire was advanced but could not be advanced centrally, attention then dir ected to the second left brachial vein and similar technique was used to access the vein. Access sit e was dilated with Peel-Away sheath and catheter tailored to the appropriate length and advanced such that the distal tip is at the cavoatrial junction. Spot image was obtained verifying placement. Ca theter was fixed to the skin and a sterile dressing was placed following hemostasis. Catheter was as pirated and flushed with saline. Patient was discharged in stable condition without complication.Max imal barrier technique is utilized. Ultrasound image is documented on the chart. Ultrasound used wit h sterile technique. Fluoro time and fluoroscopic images submitted to document procedure: 1 minute fluoroscopy time, 100 i ntraoperative images document the procedure IMPRESSION: STATUS POST ULTRASOUND AND FLUOROSCOPIC GUIDED PICC LINE PLACEMENT, READY FOR USE. THIS PROCEDURE WAS PERFORMED BY THE UNDERSIGNED.
[2020-02-05 16:52] VITALS: RESP 18
[2020-02-05 19:19] VITALS: BP 113/57; PULSE 98; TEMP 98.1
== END ==
LOC: CATHCVL 10:42
PROVIDERS: ATTEND Radiology Diagnostic Radiology
DX: M86.8X8 Other osteomyelitis, other site (principal); L88 Pyoderma gangrenosum; L89.314 Pressure ulcer of right buttock, stage 4; L89.623 Pressure ulcer of left heel, stage 3; L97.813 Non-pressure chronic ulcer of other part of right lower leg with necrosis of muscle; L97.923 Non-pressure chronic ulcer of unspecified part of left lower leg with necrosis of muscle; M06.9 Rheumatoid arthritis, unspecified; D64.9 Anemia, unspecified; Z88.0 Allergy status to penicillin; Z86.14 Personal history of Methicillin resistant Staphylococcus aureus infection
CPT/HCPCS: 36573; 86900; 86901; 80048; 85025; 86850; 86920; C1751; C1769; P9016; J2001; J0696

== ENCOUNTER 2020-02-17 12:34 | Inpatient (IN) | payer MEDICARE, OTHER ==
--- NOTE | 2020-02-17 12:56 | ED ---
General Adult HPI - General Chief complaint: Weakness Stated complaint: Weakness Time Seen by Provider: 02/17/20 12:36 Source: patient, EMS, RN notes reviewed Mode of arrival: EMS Limitations: no limitations - History of Present Illness Initial comments: Patient is a pleasant 69-year-old female presenting to the emergency Department with general weakness. Symptoms have progressed over the past couple of days. Patient is on IV antibiotics secondary to multiple wounds. Patient has full bilateral leg wounds as well as large buttocks wound. Patient states she was told she would need a graft. No fevers. Patient feels somewhat weak all over. Patient has difficulty walking. Patient is on IV antibiotics through PICC line. Patient has had 2 episodes of diarrhea. Patient believes she is eating and drinking normally. No isolated area of weakness. No confusion or speech problems or visual changes. - Related Data Home Medications Medication Instructions Recorded Confirmed Levothyroxine Sodium [Synthroid] 200 mcg PO DAILY 08/26/17 02/17/20 Rivaroxaban [Xarelto] 20 mg PO DAILY@0800 07/10/19 02/17/20 Ferrous Sulfate [Feosol] 325 mg PO DAILY 09/03/19 02/17/20 Leflunomide [Arava] 20 mg PO DAILY 10/10/19 02/17/20 Furosemide [Lasix] 20 mg PO MOWEFR 02/02/20 02/17/20 HYDROcodone/APAP 10-325MG [[place] 1 tab PO Q8HR PRN 02/02/20 02/17/20 10-325] Potassium Chloride ER [K-Dur 10] 10 meq PO MOWEFR 02/02/20 02/17/20 predniSONE [Deltasone] 20 mg PO DAILY 02/02/20 02/17/20 Pregabalin [Lyrica] 100 mg PO BID 02/17/20 02/17/20 cefTRIAXone [Rocephin] 1 gm IVPB Q12H 02/17/20 02/17/20 Previous Rx's Medication Instructions Recorded Midodrine [ProAmatine] 10 mg PO AC-TID tab 09/07/19 Sucralfate [Carafate] 1 gm PO AC-TID #90 tab 09/07/19 Collagenase [Santyl] 1 applic TOPICAL DAILY applic 10/13/19 Allergies Allergy/AdvReac Type Severity Reaction Status Date / Time Penicillins Allergy Rash/Hives Verified 02/17/20 14:11 POSITIVE TB REACTOR Allergy Unknown Uncoded 02/02/20 11:39 Review of Systems ROS Statement: Those systems with pertinent positive or pertinent negative responses have been documented in the HPI. ROS Other: All systems not noted in ROS Statement are negative. Constitutional: Denies: fever Eyes: Denies: eye pain ENT: Denies: ear pain Respiratory: Denies: cough, dyspnea Cardiovascular: Denies: chest pain Endocrine: Reports: fatigue Gastrointestinal: Denies: abdominal pain Genitourinary: Denies: dysuria Musculoskeletal: Denies: back pain Skin: Reports: as per HPI Neurological: Denies: weakness Past Medical History Past Medical History: Deep Vein Thrombosis (DVT), Fibromyalgia, GI Bleed, Hypertension, Renal Disease, Rheumatoid Arthritis (RA), Skin Disorder, Thyroid Disorder Additional Past Medical History / Comment(s): Hx bleeding stomach ulcer. CKD, stage II; "Leaky bladder," "poor circulation," Hx Wound rt foot 3rd toe, bunion on left foot, Hx Rt hip fx, no surg. Debilitated D/T RA -. current wounds on right buttock - has wound vac, right heal, and bilateral shins - goes to [facility].current wounds on right buttock, right heal, and bilateral shins. History of Any Multi-Drug Resistant Organisms: MRSA Date of last positivie culture/infection: 12/08/19 MDRO Source:: RIGHT HIP Past Surgical History: Appendectomy, Cholecystectomy, Tonsillectomy Additional Past Surgical History / Comment(s): Lt foot wound debridement. Nodule exc from thyroid. Sinus surgery. surgical excision, debridment of sacrum w/ wound VAC placement on 08/05/15 and sx done(flap), developed pin hole leak - had 2nd sx to repair. Debridement wound care to RLE wound on 08/21/15. Past Anesthesia/Blood Transfusion Reactions: No Reported Reaction Additional Past Anesthesia/Blood Transfusion Reaction / Comment(s): Pt has received blood in past without reaction. Past Psychological History: No Psychological Hx Reported Past Alcohol Use History: None Reported Past Drug Use History: None Reported - Past Family History Mother Family Medical History: AFIB, Cancer Additional Family Medical History / Comment(s): skin cancer Father Family Medical History: Cancer, Liver Disease, Rheumatoid Arthritis (RA) Additional Family Medical History / Comment(s): Leukemia. at age 72 of liver problem. General Exam Limitations: no limitations General appearance: alert, in no apparent distress Head exam: Present: normocephalic Eye exam: Present: normal appearance Neck exam: Present: normal inspection Respiratory exam: Present: normal lung sounds bilaterally Cardiovascular Exam: Present: regular rate, normal rhythm GI/Abdominal exam: Present: soft. Absent: tenderness Extremities exam: Present: other (Bilateral leg wounds. Degenerative changes of rheumatoid arthritis.) Neurological exam: Present: alert, oriented X3, CN II-XII intact. Absent: motor sensory deficit Expanded Patient oriented to: Present: person, place, time Speech: Present: fluid speech Motor strength exam: RUE: 5, LUE: 5, RLE: 5, LLE: 5 Psychiatric exam: Present: normal affect, normal mood Skin exam: Present: other (Large proximal wound, stage III without signs of erythema or drainage. Minimal blood. Bilateral multiple leg wounds stage II or 3. Positive drainage.) Course Vital Signs 02/17/20 02/17/20 02/17/20 12:35 14:00 14:30 Temperature 98.8 F Pulse Rate 107 H 100 103 H Respiratory 16 19 20 Rate Blood Pressure 85/38 86/31 73/31 O2 Sat by Pulse 93 L 97 98 Oximetry 02/17/20 15:03 Temperature Pulse Rate 100 Respiratory 20 Rate Blood Pressure 91/62 O2 Sat by Pulse 97 Oximetry - Reevaluation(s) Reevaluation #1: 02/17/20 14:55 Patient given 30 mL/kg of ideal body weight. [place] body weight is 66 kg calculated at 2 L. 02/17/20 15:08 Patient meets criteria for severe sepsis diagnosed at 1500. Blood culture and lactic acid and IV antibiotics ordered. Case was discussed in detail with Dr. Moyer who is familiar with this patient and aware of penicillin ALLERGY. He requests Merrem and vancomycin. 02/17/20 15:11 Systolic blood pressure 91. Fluid bolus is still going in. If blood pressure drops patient will need pressors. Patient does have PICC line. EKG Findings - EKG Comments: EKG Findings:: Sinus tachycardia 104. DE 12. QRS 82. QT 306. QTc 402. Normal axis. Normal QRS. No acute ST change. Medical Decision Making - Lab Data Result diagrams: 02/17/20 13:18 02/17/20 13:18 Lab Results 02/17/20 02/17/20 02/17/20 Range/Units 13:18 13:18 13:18 WBC 22.2 H (3.8-10.6) k/uL RBC 3.49 L (3.80-5.40) m/uL Hgb 8.2 L (11.4-16.0) gm/dL Hct 28.6 L (34.0-46.0) % MCV 81.8 (80.0-100.0) fL MCH 23.6 L (25.0-35.0) pg MCHC 28.8 L (31.0-37.0) g/dL RDW 18.6 H (11.5-15.5) % Plt Count 399 (150-450) k/uL Neutrophils % 92 % Lymphocytes % 4 % Monocytes % 2 % Eosinophils % 1 % Basophils % 0 % Neutrophils # 20.5 H (1.3-7.7) k/uL Lymphocytes # 0.9 L (1.0-4.8) k/uL Monocytes # 0.5 (0-1.0) k/uL Eosinophils # 0.2 (0-0.7) k/uL Basophils # 0.0 (0-0.2) k/uL Hypochromasia Marked Anisocytosis Slight Microcytosis Slight PT 15.1 H (9.0-12.0) sec INR 1.5 H (<1.2) APTT 33.3 H (22.0-30.0) sec Sodium 135 L (137-145) mmol/L Potassium 4.0 (3.5-5.1) mmol/L Chloride 104 (98-107) mmol/L Carbon Dioxide 25 (22-30) mmol/L Anion Gap 6 mmol/L BUN 30 H (7-17) mg/dL Creatinine 1.07 H (0.52-1.04) mg/dL Est GFR (CKD-EPI)AfAm 61 (>60 ml/min/1.73 sqM) Est GFR (CKD-EPI)NonAf 53 (>60 ml/min/1.73 sqM) Glucose 67 L (74-99) mg/dL Plasma Lactic Acid Darryl (0.7-2.0) mmol/L Calcium 9.1 (8.4-10.2) mg/dL Total Bilirubin 0.6 (0.2-1.3) mg/dL AST 18 (14-36) U/L ALT 14 (4-34) U/L Alkaline Phosphatase 109 (38-126) U/L Creatine Kinase 28 L (30-135) U/L Troponin I (0.000-0.034) ng/mL Total Protein 5.3 L (6.3-8.2) g/dL Albumin 2.7 L (3.5-5.0) g/dL 02/17/20 02/17/20 Range/Units 13:18 13:18 WBC (3.8-10.6) k/uL RBC (3.80-5.40) m/uL Hgb (11.4-16.0) gm/dL Hct (34.0-46.0) % MCV (80.0-100.0) fL MCH (25.0-35.0) pg MCHC (31.0-37.0) g/dL RDW (11.5-15.5) % Plt Count (150-450) k/uL Neutrophils % % Lymphocytes % % Monocytes % % Eosinophils % % Basophils % % Neutrophils # (1.3-7.7) k/uL Lymphocytes # (1.0-4.8) k/uL Monocytes # (0-1.0) k/uL Eosinophils # (0-0.7) k/uL Basophils # (0-0.2) k/uL Hypochromasia Anisocytosis Microcytosis PT (9.0-12.0) sec INR (<1.2) APTT (22.0-30.0) sec Sodium (137-145) mmol/L Potassium (3.5-5.1) mmol/L Chloride (98-107) mmol/L Carbon Dioxide (22-30) mmol/L Anion Gap mmol/L BUN (7-17) mg/dL Creatinine (0.52-1.04) mg/dL Est GFR (CKD-EPI)AfAm (>60 ml/min/1.73 sqM) Est GFR (CKD-EPI)NonAf (>60 ml/min/1.73 sqM) Glucose (74-99) mg/dL Plasma Lactic Acid Darryl 1.8 (0.7-2.0) mmol/L Calcium (8.4-10.2) mg/dL Total Bilirubin (0.2-1.3) mg/dL AST (14-36) U/L ALT (4-34) U/L Alkaline Phosphatase (38-126) U/L Creatine Kinase (30-135) U/L Troponin I <0.012 (0.000-0.034) ng/mL Total Protein (6.3-8.2) g/dL Albumin (3.5-5.0) g/dL - Radiology Data Radiology results: image reviewed (Chest x-ray shows some scarring. Bilateral x-ray tib-fib shows no focal bone destruction. Arthritis. Dermal calcifications.) Critical Care Time Critical Care Time: Yes Total Critical Care Time: 33 Disposition Clinical Impression: Severe sepsis, Bilateral leg ulcer Disposition: ADMITTED IP TO THIS [facility] Condition: Serious Is patient prescribed a controlled substance at d/c from ED?: No Referrals: Braulio Medina MD [STAFF PHYSICIAN] - 1-2 days Decision Time: 15:11
[2020-02-17] MEDS: SODIUM CHLORIDE 0.9% 500 ML 500 ML IV SCH (13:20)
[2020-02-17] MEDS: SODIUM CHLORIDE 0.9% 1,000 ML IV SCH ×2 (13:20→20:42)
[2020-02-17 13:42] LABS: Anisocytosis Slight; Basophils % (A) 0 %; Eosinophils # (A) 0.2 k/uL (0-0.7); Eosinophils % (A) 1 %; HCT 28.6 % (34.0-46.0); HGB 8.2 gm/dL (11.4-16.0); Hypochromasia Marked; Lymphocytes # (A) 0.9 k/uL (1.0-4.8); Lymphocytes % (A) 4 %; MCH 23.6 pg (25.0-35.0); MCHC 28.8 g/dL (31.0-37.0); MCV 81.8 fL (80.0-100.0); Mean Platelet Volume 7.8; Microcytosis Slight; Monocytes # (A) 0.5 k/uL (0-1.0); Monocytes % (A) 2 %; Neutrophils # (A) 20.5 k/uL (1.3-7.7); Neutrophils % (A) 92 %; Platelet Count 399 k/uL (150-450); RBC 3.49 m/uL (3.80-5.40); RDW 18.6 % (11.5-15.5); WBC 22.2 k/uL (3.8-10.6)
[2020-02-17 13:50] LABS: Albumin 2.7 g/dL (3.5-5.0); Calcium 9.1 mg/dL (8.4-10.2); Total Bilirubin 0.6 mg/dL (0.2-1.3); Total Protein 5.3 g/dL (6.3-8.2)
[2020-02-17 13:56] LABS: INR 1.5 (<1.2); Partial Thromboplastin Time 33.3 sec (22.0-30.0); Prothrombin Time 15.1 sec (9.0-12.0)
--- NOTE | 2020-02-17 14:42 | XR ---
EXAMINATION TYPE: XR chest 2V DATE OF EXAM: 02/17/2020 COMPARISON: 10/10/2019 HISTORY: Weakness TECHNIQUE: FINDINGS: Heart is normal. Lungs are clear of consolidation. There is blunting left costophrenic angl e. There are no hilar masses. There is no heart failure. IMPRESSION: There is some pleural diaphragmatic scarring lateral left lung base slightly increased co mpared to old exam. No heart failure.
--- NOTE | 2020-02-17 14:45 | XR ---
EXAMINATION TYPE: XR tibia fibula bilateral DATE OF EXAM: 02/17/2020 COMPARISON: NONE HISTORY: Bilateral leg wounds. TECHNIQUE: 7 views FINDINGS: There is extensive soft tissue calcification around the lower tibia and fibula bilaterally. The tibia and fibula appear intact. I see no focal bone destruction. The ankle joints appear intact. There is moderately severe osteoarthritis in the knee joints. This appears worse in the right knee joint farzad red to the left. IMPRESSION: There is extensive dermal calcification around the mid and lower tibia and fibula bilater ally. No evidence of osteomyelitis. No fracture. Significant arthritic disease in the knee joints.
[2020-02-17] MEDS ORDERED: SODIUM CHLORIDE 0.9% 1,000 ML IV STA (14:52)
[2020-02-17] MEDS ORDERED: VANCOMYCIN IV PER PHARMACY 1 EACH MISC MISCELLANE PRN (15:07)
[2020-02-17] MEDS ORDERED: MEROPENEM 1 GM in SODIUM CHLORIDE 0.9% 100 ML IVPB STA (15:09)
[2020-02-17] MEDS ORDERED: NALOXONE 0.4 MG/ML 1 ML VIAL IV PRN (15:11)
[2020-02-17] MEDS ORDERED: VANCOMYCIN 1,750 MG in SODIUM CHLORIDE 0.9% 500 ML 500 ML IVPB ONE (16:00)
[2020-02-17] MEDS ORDERED: SODIUM CHLORIDE 0.9% 2,000 ML IV ONE (17:48)
[2020-02-17 18:09] LABS: Glucose,Whole Blood 54 mg/dL (75-99)
[2020-02-17 18:45] LABS: Glucose,Whole Blood 80 mg/dL (75-99)
[2020-02-17 19:08] LABS: Glucose,Whole Blood 69 mg/dL (75-99)
[2020-02-17 19:08] LABS: Appearance,Urine Clear (Clear); Bilirubin,Urine Negative (Negative); Blood,Urine Negative (Negative); Color,Urine Yellow; Glucose,Urine (UA) Negative (Negative); Ketones,Urine Negative (Negative); Leukocyte Esterase,Urine Negative (Negative); Nitrite,Urine Negative (Negative); Protein,Urine Negative (Negative); Specific Gravity,Urine 1.017 (1.001-1.035); Urobilinogen,Urine <2.0 mg/dL (<2.0)
[2020-02-17 19:09] LABS: Glucose,Whole Blood 69 mg/dL (75-99)
[2020-02-17] MEDS ORDERED: GLUCAGON 1 MG/ML VIAL SQ STA (19:15)
[2020-02-17 19:55] LABS: Glucose,Whole Blood 104 mg/dL (75-99)
[2020-02-17] MEDS: NOREPINEPHRINE 4 MG in SODIUM CHLORIDE 0.9% 250 ML IV SCH (20:10)
[2020-02-17] MEDS: MEROPENEM 1 GM in SODIUM CHLORIDE 0.9% 100 ML IVPB SCH (23:04)
[2020-02-18] MEDS: ACETAMINOPHEN TAB 325 MG TAB PO PRN ×2 (00:54→06:09)
--- NOTE | 2020-02-18 01:36 | P.CONS ---
History of Present Illness - Reason for Consult Consult date: 02/17/20 Sepsis Requesting physician: Cierra Moyer - Chief Complaint Generalized weakness and nonhealing wounds x days - History of Present Illness Patient is a 69-year-old female with a past medical history significant for a chronic nonhealing wound to the sacral area as well as bilateral lower extremity for the patient is currently under care of Dr. Medina at [facility] care [place], patient local wound care to the sacral wound has been wound VAC However not very clear about the wound care to bilateral lower extremity wound, patient recently did have a cultures obtained from her wound which did grow Pseudomonas aeruginosa Proteus and enterococcus faecalis the patient did cut a PICC line under care of Dr. Medina and the patient has been receiving Rocephin at home for the last 10 days, patient was noticed to have worsening of her wound on her care visit on and the patient she was told if the patient didn't improve over the next 1 week she may have to go back to the hospital, patient was noticed to be more week and lethargic as the daughter convinced the patient to go to the ER, patient on arrival to the ER and was noticed to be febrile he did have elevated white count, patient did have local wound cultures obtained she was started on me ropenem and vancomycin and infectious disease was consulted for further management of antibiotic therapy, patient mentioning slight worsening of the wound on her left posterior leg area. The patient to have a dull aching pain at times she'll 5-6 out of 10 and no radiation the sense drainage and occasional foul-smelling patient mentions that the wound is healing well and has no symptoms referable to the sacral wound with chest pain or cough no bone pain no diarrhea Review of Systems Positive point has been mentioned in the HPI rest of the systems are negative Past Medical History Past Medical History: Deep Vein Thrombosis (DVT), Fibromyalgia, GI Bleed, Hypertension, Renal Disease, Rheumatoid Arthritis (RA), Skin Disorder, Thyroid Disorder Additional Past Medical History / Comment(s): Hx bleeding stomach ulcer. CKD, stage II; "Leaky bladder," "poor circulation," Hx Wound rt foot 3rd toe, bunion on left foot, Hx Rt hip fx, no surg. Debilitated D/T RA -. current wounds on right buttock - has wound vac, right heal, and bilateral shins - goes to [facility]ound Center.current wounds on right buttock, right heal, and bilateral shins. History of Any Multi-Drug Resistant Organisms: MRSA Year Discovered:: 12/08/19 MDRO Source:: RIGHT HIP Past Surgical History: Appendectomy, Cholecystectomy, Tonsillectomy Additional Past Surgical History / Comment(s): Lt foot wound debridement. Nodule exc from thyroid. Sinus surgery. surgical excision, debridment of sacrum w/ wound VAC placement on 08/05/15 and sx done(flap), developed pin hole leak - had 2nd sx to repair. Debridement wound care to RLE wound on 08/21/15. Past Anesthesia/Blood Transfusion Reactions: No Reported Reaction Additional Past Anesthesia/Blood Transfusion Reaction / Comm: Pt has received blood in past without reaction. Past Psychological History: No Psychological Hx Reported Additional Psychological History / Comment(s): pt lives at [facility] Smoking Status: Never smoker Past Alcohol Use History: None Reported Additional Past Alcohol Use History / Comment(s): Patient is a lifelong nonsmoker. She resides at [facility]. Past Drug Use History: None Reported - Past Family History Mother Family Medical History: AFIB, Cancer Additional Family Medical History / Comment(s): skin cancer Father Family Medical History: Cancer, Liver Disease, Rheumatoid Arthritis (RA) Additional Family Medical History / Comment(s): Leukemia. at age 72 of liver problem. Medications and Allergies Home Medications Medication Instructions Recorded Confirmed Type Levothyroxine Sodium [Synthroid] 200 mcg PO DAILY 08/26/17 02/17/20 History Rivaroxaban [Xarelto] 20 mg PO DAILY@0800 07/10/19 02/17/20 History Ferrous Sulfate [Feosol] 325 mg PO DAILY 09/03/19 02/17/20 History Midodrine [ProAmatine] 10 mg PO AC-TID tab 09/07/19 02/17/20 Rx Sucralfate [Carafate] 1 gm PO AC-TID #90 tab 09/07/19 02/17/20 Rx Leflunomide [Arava] 20 mg PO DAILY 10/10/19 02/17/20 History Collagenase [Santyl] 1 applic TOPICAL DAILY applic 10/13/19 02/17/20 Rx Furosemide [Lasix] 20 mg PO MOWEFR 02/02/20 02/17/20 History HYDROcodone/APAP 10-325MG [[place] 1 tab PO Q8HR PRN 02/02/20 02/17/20 History 10-325] Potassium Chloride ER [K-Dur 10] 10 meq PO MOWEFR 02/02/20 02/17/20 History predniSONE [Deltasone] 20 mg PO DAILY 02/02/20 02/17/20 History Pregabalin [Lyrica] 100 mg PO BID 02/17/20 02/17/20 History cefTRIAXone [Rocephin] 1 gm IVPB Q12H 02/17/20 02/17/20 History Allergies Allergy/AdvReac Type Severity Reaction Status Date / Time Penicillins Allergy Rash/Hives Verified 02/17/20 14:11 POSITIVE TB REACTOR Allergy Unknown Uncoded 02/02/20 11:39 Physical Exam Vitals: Vital Signs Temp Pulse Pulse Resp BP BP Pulse Ox 02/17/20 22:00 112 H 15 80/61 95 02/17/20 21:45 111 H 13 138/128 02/17/20 21:00 111 H 14 92/52 98 02/17/20 20:00 100.2 F H 105 H 106 H 21 83/68 94/36 97 02/17/20 19:00 100.4 F H 115 H 21 102/88 98 02/17/20 18:00 98.6 F 96 18 86/51 102/62 02/17/20 17:30 79/32 02/17/20 17:25 78/40 02/17/20 17:15 104 H 18 57/33 96 02/17/20 17:00 77/60 02/17/20 16:00 79/45 02/17/20 15:47 98 20 96/48 95 02/17/20 15:03 100 20 91/62 97 02/17/20 15:00 98 19 73/29 96 02/17/20 14:30 103 H 20 73/31 98 02/17/20 14:00 100 19 86/31 97 02/17/20 12:35 98.8 F 107 H 16 85/38 93 L Intake and Output 02/17/20 02/17/20 02/17/20 06:59 14:59 22:59 Intake Total 2860 Output Total 120 Balance 2740 Intake: IV 2860 Meropenem 1 gm In Sodium 100 Chloride 0.9% 100 ml @ 200 mls/hr IVPB Q8HR [facility] Rx#:[id number] Sodium Chloride 0.9% 1, 260 000 ml @ 130 mls/hr IV . Q7H42M [facility] Rx#:[id number] Sodium Chloride 0.9% 2, 2000 000 ml @ 999 mls/hr IV . Q2H1M [facility] Rx#:[id number] Vancomycin 1,750 mg In 500 Sodium Chloride 0.9% 500 ml 500 ml @ 167 mls/hr IVPB Q24H [facility] Rx#: [id number] Intake, IV Titration 0 Amount Norepinephrine 4 mg In 0 Sodium Chloride 0.9% 250 ml @ 0.05 MCG/KG/MIN 19. 874 mls/hr IV .[id number] [facility] Rx#:[id number] Output: Urine 120 Other: Voiding Method Indwelling Catheter Weight 104.326 kg 104.326 kg GENERAL DESCRIPTION: Elderly female lying in bed, no distress. No tachypnea or accessory muscle of respiration use. HEENT: Shows Pallor , no scleral icterus. Oral mucous membrane is dry. No pharyngeal erythema or thrush NECK: Trachea central, no thyromegaly. LUNGS: Unlabored breathing. Clear to auscultation anteriorly. No wheeze or crackle. HEART: S1, S2, regular rate and rhythm. No loud murmur ABDOMEN: Soft, no tenderness , guarding or rigidity, no organomegaly EXTREMITIES: Bilateral lower extremity wound left worse than the right one with slough tissue some surrounding redness no foul-smelling drainage Patient did have stage III sacral pressure ulcer with no significant slough tissue surrounding redness or any drainage SKIN: No rash, no masses palpable. NEUROLOGICAL: The patient is awake, alert, oriented x3, mood and affect normal. Results CBC & Chem 7: 02/17/20 13:18 02/17/20 13:18 Labs: Abnormal Lab Results - Last 24 Hours (Table) 02/17/20 02/17/20 02/17/20 Range/Units 13:18 13:18 13:18 WBC 22.2 H (3.8-10.6) k/uL RBC 3.49 L (3.80-5.40) m/uL Hgb 8.2 L (11.4-16.0) gm/dL Hct 28.6 L (34.0-46.0) % MCH 23.6 L (25.0-35.0) pg MCHC 28.8 L (31.0-37.0) g/dL RDW 18.6 H (11.5-15.5) % Neutrophils # 20.5 H (1.3-7.7) k/uL Lymphocytes # 0.9 L (1.0-4.8) k/uL PT 15.1 H (9.0-12.0) sec INR 1.5 H (<1.2) APTT 33.3 H (22.0-30.0) sec Sodium 135 L (137-145) mmol/L BUN 30 H (7-17) mg/dL Creatinine 1.07 H (0.52-1.04) mg/dL Glucose 67 L (74-99) mg/dL POC Glucose (mg/dL) (75-99) mg/dL Creatine Kinase 28 L (30-135) U/L Total Protein 5.3 L (6.3-8.2) g/dL Albumin 2.7 L (3.5-5.0) g/dL 02/17/20 02/17/20 02/17/20 Range/Units 18:07 18:53 19:07 WBC (3.8-10.6) k/uL RBC (3.80-5.40) m/uL Hgb (11.4-16.0) gm/dL Hct (34.0-46.0) % MCH (25.0-35.0) pg MCHC (31.0-37.0) g/dL RDW (11.5-15.5) % Neutrophils # (1.3-7.7) k/uL Lymphocytes # (1.0-4.8) k/uL PT (9.0-12.0) sec INR (<1.2) APTT (22.0-30.0) sec Sodium (137-145) mmol/L BUN (7-17) mg/dL Creatinine (0.52-1.04) mg/dL Glucose (74-99) mg/dL POC Glucose (mg/dL) 54 L 69 L 69 L (75-99) mg/dL Creatine Kinase (30-135) U/L Total Protein (6.3-8.2) g/dL Albumin (3.5-5.0) g/dL 02/17/20 Range/Units 19:54 WBC (3.8-10.6) k/uL RBC (3.80-5.40) m/uL Hgb (11.4-16.0) gm/dL Hct (34.0-46.0) % MCH (25.0-35.0) pg MCHC (31.0-37.0) g/dL RDW (11.5-15.5) % Neutrophils # (1.3-7.7) k/uL Lymphocytes # (1.0-4.8) k/uL PT (9.0-12.0) sec INR (<1.2) APTT (22.0-30.0) sec Sodium (137-145) mmol/L BUN (7-17) mg/dL Creatinine (0.52-1.04) mg/dL Glucose (74-99) mg/dL POC Glucose (mg/dL) 104 H (75-99) mg/dL Creatine Kinase (30-135) U/L Total Protein (6.3-8.2) g/dL Albumin (3.5-5.0) g/dL Microbiology - Last 24 Hours (Table) 02/17/20 13:42 Wound Culture - Preliminary Leg - Left Assessment and Plan Assessment: 1- patient presented to the hospital with sepsis this patient who did have a fever tachycardia and elevated white count source is infected lower extremity wound especially the left leg which did have some inflammatory changes around it in this patient who recently did have a wound culture which grew Pseudomonas Proteus and enterococcus faecalis could very likely infecting pathogen patient seemed to have failed to respond to the outpatient IV Rocephin therapy 2- patient with penicillin ALLERGY. We'll limit the number of antibiotic safety use (1) Failure of outpatient treatment Current Visit: Yes Status: Acute Code(s): Z78.9 - OTHER SPECIFIED HEALTH STATUS SNOMED Code(s): 626781815 (2) Penicillin allergy Current Visit: Yes Status: Acute Code(s): Z88.0 - ALLERGY STATUS TO PENICILLIN SNOMED Code(s): 04954404 (3) Bilateral leg ulcer Current Visit: Yes Status: Acute Code(s): L97.919 - NON-PRS CHRONIC ULC UNSP PRT OF R LOW LEG W UNSP SEVERITY; L97.929 - NON-PRS CHRONIC ULC UNSP PRT OF L LOW LEG W UNSP SEVERITY SNOMED Code(s): 94843323 (4) Severe sepsis Current Visit: Yes Status: Acute Code(s): A41.9 - SEPSIS, UNSPECIFIED ORGANISM; R65.20 - SEVERE SEPSIS WITHOUT SEPTIC SHOCK SNOMED Code(s): 66344067 Plan: 1- meropenem 1 g every 8 hours to provide coverage for the 3 organisms that were done on her last culture 2- local wound care with the santyl followed by moist dressing to be changed daily and may benefit from surgical debridement 3- IV fluid We will follow on clinical condition and cultures to further adjust medication if needed Thank you for this consultation will follow this patient with you Time with Patient: Greater than 30
[2020-02-18] MEDS: NOREPINEPHRINE 4 MG in SODIUM CHLORIDE 0.9% 250 ML IV SCH (02:56)
[2020-02-18] MEDS: SODIUM CHLORIDE 0.9% 1,000 ML IV SCH ×3 (02:56→19:34)
[2020-02-18 04:59] LABS: African American GFR (CKD) >90 (>60 ml/min/1.73 sqM); Anion Gap 0 mmol/L; Blood Urea Nitrogen 21 mg/dL (7-17); Carbon Dioxide 18 mmol/L (22-30); Chloride 117 mmol/L (98-107); Glucose 78 mg/dL (74-99); Magnesium 1.4 mg/dL (1.6-2.3); Non-African American GFR(CKD) 82 (>60 ml/min/1.73 sqM); Potassium 3.1 mmol/L (3.5-5.1); Sodium 135 mmol/L (137-145)
[2020-02-18 05:06] LABS: Anisocytosis Slight; Basophils # (A) 0.1 k/uL (0-0.2); Basophils % (A) 0 %; Eosinophils # (A) 0.2 k/uL (0-0.7); Eosinophils % (A) 1 %; HCT 24.1 % (34.0-46.0); Hypochromasia Marked; Lymphocytes # (A) 0.9 k/uL (1.0-4.8); Lymphocytes % (A) 5 %; MCH 24.4 pg (25.0-35.0); MCHC 28.7 g/dL (31.0-37.0); MCV 84.9 fL (80.0-100.0); Mean Platelet Volume 8.6; Monocytes # (A) 0.5 k/uL (0-1.0); Monocytes % (A) 3 %; Neutrophils # (A) 16.1 k/uL (1.3-7.7); Neutrophils % (A) 90 %; Platelet Count 422 k/uL (150-450); RBC 2.84 m/uL (3.80-5.40); RDW 18.3 % (11.5-15.5); WBC 17.9 k/uL (3.8-10.6)
[2020-02-18 05:09] LABS: HGB 6.9 gm/dL (11.4-16.0)
[2020-02-18 05:11] LABS: Calcium 6.1 mg/dL (8.4-10.2)
[2020-02-18] MEDS ORDERED: Potassium Replacement Protocol 1 EACH MISC MISCELLANE PRN (05:23)
[2020-02-18] MEDS ORDERED: Magnesium Replacement Protocol 1 EACH MISC MISCELLANE PRN (05:25)
[2020-02-18] MEDS ORDERED: Phosphorus Replacement Protoco 1 EACH MISC MISCELLANE PRN (05:25)
[2020-02-18] MEDS: MAGNESIUM SULFATE-D5W PMX 1 GM in DEXTROSE/WATER 1 100ML.BAG IVPB SCH ×3 (05:47→08:50)
[2020-02-18] MEDS: POTASSIUM CHLORIDE 20 MEQ in WATER FOR INJECTION 1 100ML.BAG IVPB SCH (05:47)
[2020-02-18] MEDS: NOREPINEPHRINE 8 MG in SODIUM CHLORIDE 0.9% 250 ML IV SCH ×2 (06:08→11:52)
[2020-02-18] MEDS ORDERED: CALCIUM GLUCONATE 1 GM in SODIUM CHLORIDE 0.9% 100 ML IVPB ONE (06:15)
[2020-02-18] MEDS ORDERED: VANCOMYCIN 1,750 MG in SODIUM CHLORIDE 0.9% 500 ML 500 ML IVPB SCH ×2 (08:00→12:00)
[2020-02-18] MEDS: MEROPENEM 1 GM in SODIUM CHLORIDE 0.9% 100 ML IVPB SCH ×2 (08:52→16:08)
[2020-02-18] MEDS ORDERED: POTASSIUM CHLORIDE ER 20 MEQ TAB.ER PO SCH (09:00)
--- NOTE | 2020-02-18 10:26 | XR ---
EXAMINATION TYPE: XR chest 1V portable DATE OF EXAM: 02/18/2020 HISTORY: Post Line Insertion. REFERENCE: Previous study dated 02/17/2020. FINDINGS: A left basilic PICC line remains in place, unchanged in appearance. There has been interval insertion of a right subclavian catheter. Its tip is in the right atrium. I do not see evidence of p neumothorax. Heart size upper limits of normal. There is left basilar airspace disease as well as a small left eff usion. IMPRESSION: 1. NO INTERVAL CHANGE IN THE APPEARANCE OF THE CHEST. 2. I DO NOT SEE A POST CATHETER INSERTION COMPLICATION.
[2020-02-18] MEDS: POTASSIUM PHOSPHATE 10 MMOL in SODIUM CHLORIDE 0.9% 100 ML IV SCH ×2 (11:49→16:54)
--- NOTE | 2020-02-18 11:55 | P.HPIM ---
History of Present Illness H&P Date: 02/18/20 Chief Complaint: Infected bilateral lower extremity nonhealing wounds with s epsis. This is a 69-year-old female in my patient with a previous medical history significant for rheumatoid arthritis with significant deformities, currently wheelchair bound/bedbound, nonhealing wounds for bilateral lower extremities as well as stage IV sacral decubitus ulcer for which she has been treated with a wound VAC, she has been following with the wound healing Center at [facility] with Dr. Medina on a weekly basis and recently she had a PIC line inserted and she was started on IV antibiotic in the form of Rocephin for the next 10 days however she was told that the patient may need to go to the emergency department if she is not doing better over the next few days, patient while she was at home she was extremely lethargic and she was fatigued and tired she was feeling cold her daughter brought her to the ER at [facility] and she was found to have a worsening bilateral nonhealing wounds worse on the posterior left leg and the right heel along with a decubiti on the sacral area that was covered with a wound VAC, patient did have hypotension and leukocytosis initially and she was started on IV antibiotic in the form of vancomycin and meropenem, 1 cultures as well as blood cultures were obtained, patient initially did receive a bolus of IV fluid and blood pressure was a bit better so the emergency room physician sent the patient to telemetry unit however the patient became hypotensive on the floor blood pressure drop to 55/35 and 18 was called and patient was transferred to the intensive care unit, Dr. Metz, patient had an arterial line placed and as well as triple lumen catheter in the right subclavian vein, she was kept on norepinephrine after the IV bolus and she was started on vancomycin and meropenem she was seen in consultation by infectious disease as well. She is to be treated in intensive care unit, her prognosis very guarded and she will definitely need to go to extended care facility for better wound healing. Review of Systems Constitutional: Reports anorexia, Reports chills, Reports chronic pain, Reports fatigue, Reports malaise, Reports night sweats, Reports weakness Eyes: denies blurred vision, denies bulging eye, denies decreased vision Ears: deny: decreased hearing Ears, nose, mouth and throat: Denies dysphagia, Denies neck lump, Denies sore throat Cardiovascular: Denies chest pain, Denies decreased exercise tolerance, Denies dyspnea on exertion, Denies lightheadedness, Denies rapid heart beat, Denies shortness of breath, Denies syncope Respiratory: Denies congestion, Denies cough with sputum, Denies home oxygen, Denies sleep apnea, Denies snoring, Denies wheezing Gastrointestinal: Reports loss of appetite, Denies abdominal pain, Denies BRBPR, Denies heartburn, Denies melena, Denies nausea, Denies vomiting Genitourinary: Denies dysuria Menstruation: Reports postmenopausal Musculoskeletal: Reports gait dysfunction, Reports leg numbness/tingling, Reports muscle weakness Musculoskeletal: bilateral: ankle pain, ankle stiffness, ankle swelling, foot pain, foot stiffness, foot swelling, hand pain, hand stiffness, hand swelling, absent: elbow pain, elbow stiffness, elbow swelling, hip pain, hip stiffness, hip swelling, knee pain, knee stiffness, knee swelling, shoulder pain, shoulder stiffness, shoulder swelling, wrist pain, wrist stiffness, wrist swelling Integumentary: Reports wounds (Left lower extremity, right heel, sacral.) Neurological: Reports gait dysfunction, Reports sensory deficit, Reports weakness, Denies confusion, Denies memory loss, Denies syncope, Denies tremors, Denies vertigo Psychiatric: Reports depression, Denies sadness/tearfulness, Denies sleep disturbances, Denies suicidal ideation Endocrine: Reports fatigue Past Medical History Past Medical History: Deep Vein Thrombosis (DVT), Fibromyalgia, GI Bleed, Hypertension, Renal Disease, Rheumatoid Arthritis (RA), Skin Disorder, Thyroid Disorder Additional Past Medical History / Comment(s): Hx bleeding stomach ulcer. CKD, stage II; "Leaky bladder," "poor circulation," Hx Wound rt foot 3rd toe, bunion on left foot, Hx Rt hip fx, no surg. Debilitated D/T RA -. current wounds on right buttock - has wound vac, right heal, and bilateral shins - goes to Wound Center.current wounds on right buttock, right heal, and bilateral shins. History of Any Multi-Drug Resistant Organisms: MRSA Date of last positivie culture/infection: 12/08/19 MDRO Source:: RIGHT HIP Past Surgical History: Appendectomy, Cholecystectomy, Tonsillectomy Additional Past Surgical History / Comment(s): Lt foot wound debridement. Nodule exc from thyroid. Sinus surgery. surgical excision, debridment of sacrum w/ wound VAC placement on 08/05/15 and sx done(flap), developed pin hole leak - had 2nd sx to repair. Debridement wound care to RLE wound on 08/21/15. Past Anesthesia/Blood Transfusion Reactions: No Reported Reaction Additional Past Anesthesia/Blood Transfusion Reaction / Comment(s): Pt has received blood in past without reaction. Past Psychological History: No Psychological Hx Reported Additional Psychological History / Comment(s): pt lives at [facility] Smoking Status: Never smoker Past Alcohol Use History: None Reported Additional Past Alcohol Use History / Comment(s): Patient is a lifelong nonsmoker. She resides at [facility]. Past Drug Use History: None Reported - Past Family History Mother Family Medical History: AFIB, Cancer Additional Family Medical History / Comment(s): skin cancer Father Family Medical History: Cancer, Liver Disease, Rheumatoid Arthritis (RA) Additional Family Medical History / Comment(s): Leukemia. at age 72 of liver problem. Medications and Allergies Home Medications Medication Instructions Recorded Confirmed Type Levothyroxine Sodium [Synthroid] 200 mcg PO DAILY 08/26/17 02/17/20 History Rivaroxaban [Xarelto] 20 mg PO DAILY@0800 07/10/19 02/17/20 History Ferrous Sulfate [Feosol] 325 mg PO DAILY 09/03/19 02/17/20 History Midodrine [ProAmatine] 10 mg PO AC-TID tab 09/07/19 02/17/20 Rx Sucralfate [Carafate] 1 gm PO AC-TID #90 tab 09/07/19 02/17/20 Rx Leflunomide [Arava] 20 mg PO DAILY 10/10/19 02/17/20 History Collagenase [Santyl] 1 applic TOPICAL DAILY applic 10/13/19 02/17/20 Rx Furosemide [Lasix] 20 mg PO MOWEFR 02/02/20 02/17/20 History HYDROcodone/APAP 10-325MG [Pomona 1 tab PO Q8HR PRN 02/02/20 02/17/20 History 10-325] Potassium Chloride ER [K-Dur 10] 10 meq PO MOWEFR 02/02/20 02/17/20 History predniSONE [Deltasone] 20 mg PO DAILY 02/02/20 02/17/20 History Pregabalin [Lyrica] 100 mg PO BID 02/17/20 02/17/20 History cefTRIAXone [Rocephin] 1 gm IVPB Q12H 02/17/20 02/17/20 History Allergies Allergy/AdvReac Type Severity Reaction Status Date / Time Penicillins Allergy Rash/Hives Verified 02/17/20 14:11 POSITIVE TB REACTOR Allergy Unknown Uncoded 02/02/20 11:39 Physical Exam Vitals: Vital Signs Temp Pulse Pulse Resp BP BP Pulse Ox 02/18/20 10:00 93 18 105/59 96 02/18/20 09:00 97 16 110/59 96 02/18/20 08:00 98.7 F 97 20 110/65 96 02/18/20 07:00 101 H 16 99/49 94 L 02/18/20 06:45 102 H 20 99/48 02/18/20 06:30 104 H 20 106/48 02/18/20 06:15 104 H 18 101/48 02/18/20 06:00 105 H 20 103/57 94 L 02/18/20 05:45 104 H 21 107/51 02/18/20 05:30 103 H 20 102/51 02/18/20 05:15 105 H 15 105/55 02/18/20 05:00 106 H 14 106/49 94 L 02/18/20 04:45 106 H 10 L 94/55 02/18/20 04:30 104 H 19 95/49 02/18/20 04:15 106 H 16 94/42 02/18/20 04:00 100.8 F H 105 H 12 98/47 94 L 02/18/20 03:45 105 H 8 L 95/54 02/18/20 03:30 105 H 14 94/46 02/18/20 03:15 105 H 11 L 99/50 02/18/20 03:00 107 H 13 84/48 95 02/18/20 02:45 107 H 11 L 86/48 95 02/18/20 02:30 105 H 15 78/45 02/18/20 02:15 106 H 15 83/48 02/18/20 02:00 106 H 19 89/43 95 02/18/20 01:45 107 H 14 86/44 02/18/20 01:30 105 H 11 L 90/64 07/26/20 01:15 107 H 22 100/58 02/18/20 01:00 112 H 15 95/53 95 02/18/20 00:45 113 H 15 91/51 02/18/20 00:30 114 H 12 102/49 02/18/20 00:15 110 H 25 H 96/50 02/18/20 00:04 110 H 23 96/50 02/18/20 00:00 102.6 F H 107 H 18 98/44 95 02/17/20 23:45 112 H 18 94/44 02/17/20 23:30 110 H 23 106/48 02/17/20 23:15 106 H 23 100/47 02/17/20 23:00 111 H 25 H 82/48 97 02/17/20 22:45 112 H 15 93/52 02/17/20 22:30 109 H 18 94/41 02/17/20 22:15 112 H 25 H 90/76 02/17/20 22:00 112 H 15 80/61 95 02/17/20 21:45 111 H 13 138/128 02/17/20 21:00 111 H 14 92/52 98 02/17/20 20:00 100.2 F H 105 H 106 H 21 83/68 94/36 97 02/17/20 19:00 100.4 F H 115 H 21 102/88 98 02/17/20 18:00 98.6 F 96 18 86/51 102/62 02/17/20 17:30 79/32 02/17/20 17:25 78/40 02/17/20 17:15 104 H 18 57/33 96 02/17/20 17:00 77/60 02/17/20 16:00 79/45 02/17/20 15:47 98 20 96/48 95 02/17/20 15:03 100 20 91/62 97 02/17/20 15:00 98 19 73/29 96 02/17/20 14:30 103 H 20 73/31 98 02/17/20 14:00 100 19 86/31 97 02/17/20 12:35 98.8 F 107 H 16 85/38 93 L Intake and Output 02/17/20 02/18/20 02/18/20 22:59 06:59 14:59 Intake Total 2874.906 2130.757 390 Output Total 120 370 155 Balance 2754.906 1760.757 235 Intake: IV 2860 1670 390 Calcium Gluconate 1 gm In 100 Sodium Chloride 0.9% 100 ml @ 100 mls/hr IVPB ONCE ONE Rx#:[id number] Magnesium Sulfate-D5w Pmx 200 1 gm In Dextrose/Water 1 100ml.bag @ 100 mls/hr IVPB Q1H [facility] Rx#: [id number] Meropenem 1 gm In Sodium 100 100 Chloride 0.9% 100 ml @ 200 mls/hr IVPB Q8HR [facility] Rx#:[id number] Potassium Chloride 20 meq 100 In Water For Injection 1 100ml.bag @ 50 mls/hr IVPB Q2H [facility] Rx#: [id number] Sodium Chloride 0.9% 1, 260 1170 390 000 ml @ 130 mls/hr IV . Q7H42M [facility] Rx#:[id number] Sodium Chloride 0.9% 2, 2000 000 ml @ 999 mls/hr IV . Q2H1M [facility] Rx#:[id number] Vancomycin 1,750 mg In 500 Sodium Chloride 0.9% 500 ml 500 ml @ 167 mls/hr IVPB Q24H [facility] Rx#: [id number] Intake, IV Titration 14.906 460.757 Amount Norepinephrine 4 mg In 14.906 460.757 Sodium Chloride 0.9% 250 ml @ 0.05 MCG/KG/MIN 19. 874 mls/hr IV .[id number] [facility] Rx#:[id number] Output: Urine 120 370 155 Other: Voiding Method Indwelling Catheter Indwelling Catheter Weight 104.326 kg 102.467 kg Physical examination: HEENT: Head is atraumatic, normocephalic, pupils were equal round reactive to light and accommodation, extraocular muscle movement intact. Neck:Supple, no JVD, decreased carotid upstroke laterally. Chest: Decreased breath sounds at the bases, few rhonchi, no expiratory wheezes, no chest tenderness, no intercostal retractions. Heart: First heart sound is depressed, second heart sounds normal, tachycardic, there is systolic murmur 2/6. Left sternal border. Abdomen: Soft, nontender, nondistended, positive bowel sounds. Extremities: Bilateral lower extremity with significant wound nonhealing please refer to the pictures in the chart left lower extremity with significant wound right heel with significant wound sacral area with a clean wound, there is deformities in upper and lower extremities due to her rheumatoid arthritis, dorsalis pedis +1 bilaterally. Neurologic examination: Patient is awake alert and oriented 3, cranial nerves III-12 grossly intact, moves all her extremities, however she generally weak. Results CBC & Chem 7: 02/18/20 04:20 02/18/20 04:20 Labs: Abnormal Lab Results - Last 24 Hours (Table) 02/17/20 02/17/20 02/17/20 Range/Units 13:18 13:18 13:18 WBC 22.2 H (3.8-10.6) k/uL RBC 3.49 L (3.80-5.40) m/uL Hgb 8.2 L (11.4-16.0) gm/dL Hct 28.6 L (34.0-46.0) % MCH 23.6 L (25.0-35.0) pg MCHC 28.8 L (31.0-37.0) g/dL RDW 18.6 H (11.5-15.5) % Neutrophils # 20.5 H (1.3-7.7) k/uL Lymphocytes # 0.9 L (1.0-4.8) k/uL PT 15.1 H (9.0-12.0) sec INR 1.5 H (<1.2) APTT 33.3 H (22.0-30.0) sec Sodium 135 L (137-145) mmol/L Potassium (3.5-5.1) mmol/L Chloride (98-107) mmol/L Carbon Dioxide (22-30) mmol/L BUN 30 H (7-17) mg/dL Creatinine 1.07 H (0.52-1.04) mg/dL Glucose 67 L (74-99) mg/dL POC Glucose (mg/dL) (75-99) mg/dL Calcium (8.4-10.2) mg/dL Phosphorus (2.5-4.5) mg/dL Magnesium (1.6-2.3) mg/dL Creatine Kinase 28 L (30-135) U/L Total Protein 5.3 L (6.3-8.2) g/dL Albumin 2.7 L (3.5-5.0) g/dL Crossmatch 02/17/20 02/17/20 02/17/20 Range/Units 18:07 18:53 19:07 WBC (3.8-10.6) k/uL RBC (3.80-5.40) m/uL Hgb (11.4-16.0) gm/dL Hct (34.0-46.0) % MCH (25.0-35.0) pg MCHC (31.0-37.0) g/dL RDW (11.5-15.5) % Neutrophils # (1.3-7.7) k/uL Lymphocytes # (1.0-4.8) k/uL PT (9.0-12.0) sec INR (<1.2) APTT (22.0-30.0) sec Sodium (137-145) mmol/L Potassium (3.5-5.1) mmol/L Chloride (98-107) mmol/L Carbon Dioxide (22-30) mmol/L BUN (7-17) mg/dL Creatinine (0.52-1.04) mg/dL Glucose (74-99) mg/dL POC Glucose (mg/dL) 54 L 69 L 69 L (75-99) mg/dL Calcium (8.4-10.2) mg/dL Phosphorus (2.5-4.5) mg/dL Magnesium (1.6-2.3) mg/dL Creatine Kinase (30-135) U/L Total Protein (6.3-8.2) g/dL Albumin (3.5-5.0) g/dL Crossmatch 02/17/20 02/18/20 02/18/20 Range/Units 19:54 04:20 04:20 WBC 17.9 H (3.8-10.6) k/uL RBC 2.84 L (3.80-5.40) m/uL Hgb 6.9 L* (11.4-16.0) gm/dL Hct 24.1 L (34.0-46.0) % MCH 24.4 L (25.0-35.0) pg MCHC 28.7 L (31.0-37.0) g/dL RDW 18.3 H (11.5-15.5) % Neutrophils # 16.1 H (1.3-7.7) k/uL Lymphocytes # 0.9 L (1.0-4.8) k/uL PT (9.0-12.0) sec INR (<1.2) APTT (22.0-30.0) sec Sodium 135 L (137-145) mmol/L Potassium 3.1 L (3.5-5.1) mmol/L Chloride 117 H (98-107) mmol/L Carbon Dioxide 18 L (22-30) mmol/L BUN 21 H (7-17) mg/dL Creatinine (0.52-1.04) mg/dL Glucose (74-99) mg/dL POC Glucose (mg/dL) 104 H (75-99) mg/dL Calcium 6.1 L* (8.4-10.2) mg/dL Phosphorus 2.0 L (2.5-4.5) mg/dL Magnesium 1.4 L (1.6-2.3) mg/dL Creatine Kinase (30-135) U/L Total Protein (6.3-8.2) g/dL Albumin (3.5-5.0) g/dL Crossmatch 02/18/20 Range/Units 06:25 WBC (3.8-10.6) k/uL RBC (3.80-5.40) m/uL Hgb (11.4-16.0) gm/dL Hct (34.0-46.0) % MCH (25.0-35.0) pg MCHC (31.0-37.0) g/dL RDW (11.5-15.5) % Neutrophils # (1.3-7.7) k/uL Lymphocytes # (1.0-4.8) k/uL PT (9.0-12.0) sec INR (<1.2) APTT (22.0-30.0) sec Sodium (137-145) mmol/L Potassium (3.5-5.1) mmol/L Chloride (98-107) mmol/L Carbon Dioxide (22-30) mmol/L BUN (7-17) mg/dL Creatinine (0.52-1.04) mg/dL Glucose (74-99) mg/dL POC Glucose (mg/dL) (75-99) mg/dL Calcium (8.4-10.2) mg/dL Phosphorus (2.5-4.5) mg/dL Magnesium (1.6-2.3) mg/dL Creatine Kinase (30-135) U/L Total Protein (6.3-8.2) g/dL Albumin (3.5-5.0) g/dL Crossmatch See Detail Microbiology - Last 24 Hours (Table) 02/17/20 13:18 Blood Culture Gram Stain - Preliminary Blood 02/17/20 13:18 Blood Culture - Final Blood 02/17/20 13:42 Gram Stain - Preliminary Leg - Left Wound Culture - Preliminary Thrombosis Risk Factor Assmnt - DVT/VTE Prophylaxis DVT/VTE Prophylaxis: Pharmacologic Prophylaxis ordered - Choose All That Apply Each Factor Represents 1 point: Medical pt on bed rest, Obesity (BMI >25), Sepsis (< 1month) Each Risk Factor Represents 2 Points: Age 61-74 years, Patient confined to bed Thrombosis Risk Factor Assessment Total Risk Factor Score: 7 Thrombosis Risk Factor Assessment Level: High Risk Assessment and Plan Assessment: Assessment: 1. Bilateral nonhealing wounds in both lower extremities mostly left and right heel along with a chronic sacral decubitus. Patient was seen in consultation by infectious disease she was started on Vibramycin and meropenem as the patient did have a prior history of pseudomonas aeruginosa as well as MRSA along with Proteus and enterococcus. Wound cultures were obtained in the emergency department, blood cultures were obtained as well, we'll continue local care as per infectious disease recommendation. 2. Severe sepsis with hypotension due to infected bilateral lower extremity nonhealing wounds. Continue IV fluid, continue Levophed, continue IV antibiotic in the form of vancomycin and Rocephin, check and repeat her lactic acid 6 hours. Continue current plan as for ICU care. 3. Leukocytosis related to an infected bilateral lower extremities wounds. Repeat her CBC in the next 24 hours. 4. Mild hyponatremia and hypokalemia we will replace. 5. Hypomagnesemia status post replacement. 6. Acute on chronic anemia possibly due to blood loss and chronic medical illness. Transfuse for hemoglobin less than 7. 7. Rheumatoid arthritis with chronic pain. Continue Arava 20 mg orally once every day fentanyl patch 12 micrograms every 72 hours, Pomona 10 one every 8 hours for breakthrough pain., Lyrica 100 mg twice daily. 8. History of DVT. Xarelto 20 mg daily. 9. Hypothyroidism. Continue levothyroxine 200 g daily. 10. Peripheral neuropathy. Continue patient on Lyrica 100 mg orally twice every day. 11. Chronic Charles catheter. Due to nonhealing decubitus ulcers. 12. DVT prophylaxis. We will maintain the patient on Xarelto 20 mg orally once every day. 13. GI prophylaxis. We will maintain patient on Protonix 40 mg once every day. 14. Admit to inpatient. Estimated length of stay 2 midnights. 15. Patient is full code. 16. Very guarded prognosis.
--- NOTE | 2020-02-18 12:36 | PCN ---
PROCEDURE NOTE PROCEDURE PERFORMED: Placement of a right radial arterial line. PREOPERATIVE DIAGNOSES: Sepsis and septic shock. POSTOPERATIVE DIAGNOSES: Sepsis and septic shock. ANESTHESIA: None deployed. PROCEDURE: The right wrist was prepared in a sterile fashion and drapes were applied. The right radial artery was palpated, cannulated, and a guidewire was placed. A Cook catheter was inserted over the guidewire, the guidewire was removed. Good blood flow and good waveform noted. No evidence of any immediate complications. Line was secured using 3.0 silk sutures. MMODL / IJN: [id number] /
--- NOTE | 2020-02-18 12:36 | PCN ---
PROCEDURE NOTE Placement of the right subclavian triple-lumen catheter. PREOPERATIVE DIAGNOSES: Acute sepsis and septic shock. POSTOPERATIVE DIAGNOSES: Acute sepsis and septic shock. ANESTHESIA USED: 2 mL of 1% lidocaine. PROCEDURE: The patient was placed in a Trendelenburg position. The area below the right clavicle was prepared in a sterile fashion and drapes were applied. The area below the clavicle was locally anesthetized with lidocaine. Then using the infraclavicular approach, the right subclavian vein was easily cannulated, a guidewire was placed, the area around the guidewire was dilated, and a triple-lumen catheter was inserted over the guidewire, and the guidewire was removed. Good blood flow noted in the 3 different ports of the triple-lumen catheter. The line was secured using 3.0 silk sutures. The chest x-ray postoperatively showed no evidence of any complications. MMODL / IJN: [id number] /
--- NOTE | 2020-02-18 12:55 | P.CNPUL ---
History of Present Illness Consult date: 02/18/20 Requesting physician: Cierra Moyer Reason for consult: other (Septic shock) Chief complaint: Worsening infected lower extremities and nonhealing wounds History of present illness: This is a 69-year-old female with history of multiple medical problems including rheumatoid arthritis. Patient has chronic cellulitis and chronic nonhealing wounds of both lower extremities. History of stage IV sacral decubitus ulcer treated with wound VAC. And has been followed at the wound healing center at [facility] by Dr. Medina. Patient had a recent placement of the PICC line for IV antibiotics, and she was on Rocephin for the last 10 days. Patient was advised to go to the ER because she was noted to be extremely lethargic and fatigued. In the ER, patient was noted to be relatively hypotensive, she had worsening bilateral nonhealing wounds on both lower extremities. And worsening decubitus ulcer./Sacral ulcer. Patient was also noted to have leukocytosis along with hypotension. Started on antibiotics in the form of vancomycin and meropenem. She was also given fluid boluses. And she was admitted to telemetry. However the patient continued to have hypotensive episodes. And her blood pressure was as low as 55 systolic. Hence the patient was transferred to the intensive care unit. After evaluating the patient, I recommended a central line which was placed in the right subclavian, I also placed a right radial arterial line, and started the patient on norepinephrine. Kept her on antibiotics as per infectious disease on the case. Her blood culture from 02/16 is positive for group D enterococcus. Patient was also noted to have a low hemoglobin of 6.9, and I recommended a unit of blood to be transfused. Fluid boluses were given , and I have recommended monitoring CVP. Review of Systems ROS unobtainable: due to mental status Past Medical History Past Medical History: Deep Vein Thrombosis (DVT), Fibromyalgia, GI Bleed, Hypertension, Renal Disease, Rheumatoid Arthritis (RA), Skin Disorder, Thyroid Disorder Additional Past Medical History / Comment(s): Hx bleeding stomach ulcer. CKD, stage II; "Leaky bladder," "poor circulation," Hx Wound rt foot 3rd toe, bunion on left foot, Hx Rt hip fx, no surg. Debilitated D/T RA -. current wounds on right buttock - has wound vac, right heal, and bilateral shins - goes to Wound Center.current wounds on right buttock, right heal, and bilateral shins. History of Any Multi-Drug Resistant Organisms: MRSA Date of last positivie culture/infection: 12/08/19 MDRO Source:: RIGHT HIP Past Surgical History: Appendectomy, Cholecystectomy, Tonsillectomy Additional Past Surgical History / Comment(s): Lt foot wound debridement. Nodule exc from thyroid. Sinus surgery. surgical excision, debridment of sacrum w/ wound VAC placement on 08/05/15 and sx done(flap), developed pin hole leak - had 2nd sx to repair. Debridement wound care to RLE wound on 08/21/15. Past Anesthesia/Blood Transfusion Reactions: No Reported Reaction Additional Past Anesthesia/Blood Transfusion Reaction / Comment(s): Pt has received blood in past without reaction. Past Psychological History: No Psychological Hx Reported Additional Psychological History / Comment(s): pt lives at [facility] Smoking Status: Never smoker Past Alcohol Use History: None Reported Additional Past Alcohol Use History / Comment(s): Patient is a lifelong nonsmok er. She resides at [facility]. Past Drug Use History: None Reported - Past Family History Mother Family Medical History: AFIB, Cancer Additional Family Medical History / Comment(s): skin cancer Father Family Medical History: Cancer, Liver Disease, Rheumatoid Arthritis (RA) Additional Family Medical History / Comment(s): Leukemia. at age 72 of liver problem. Medications and Allergies Home Medications Medication Instructions Recorded Confirmed Type Levothyroxine Sodium [Synthroid] 200 mcg PO DAILY 08/26/17 02/17/20 History Rivaroxaban [Xarelto] 20 mg PO DAILY@0800 07/10/19 02/17/20 History Ferrous Sulfate [Feosol] 325 mg PO DAILY 09/03/19 02/17/20 History Midodrine [ProAmatine] 10 mg PO AC-TID tab 09/07/19 02/17/20 Rx Sucralfate [Carafate] 1 gm PO AC-TID #90 tab 09/07/19 02/17/20 Rx Leflunomide [Arava] 20 mg PO DAILY 10/10/19 02/17/20 History Collagenase [Santyl] 1 applic TOPICAL DAILY applic 10/13/19 02/17/20 Rx Furosemide [Lasix] 20 mg PO MOWEFR 02/02/2025/20 History HYDROcodone/APAP 10-325MG [[place] 1 tab PO Q8HR PRN 02/02/20 02/17/20 History 10-325] Potassium Chloride ER [K-Dur 10] 10 meq PO MOWEFR 02/02/20 02/17/20 History predniSONE [Deltasone] 20 mg PO DAILY 02/02/20 02/17/20 History Pregabalin [Lyrica] 100 mg PO BID 02/17/20 02/17/20 History cefTRIAXone [Rocephin] 1 gm IVPB Q12H 02/17/20 02/17/20 History Allergies Allergy/AdvReac Type Severity Reaction Status Date / Time Penicillins Allergy Rash/Hives Verified 02/17/20 14:11 POSITIVE TB REACTOR Allergy Unknown Uncoded 02/02/20 11:39 Physical Exam Vitals: Vital Signs Temp Pulse Pulse Resp BP BP Pulse Ox 02/18/20 11:48 98.6 F 104 H 18 104/52 96 02/18/20 11:38 98.9 F 112 H 16 101/47 96 02/18/20 11:00 109 H 21 94 L 02/18/20 10:00 93 18 105/59 96 02/18/20 09:00 97 16 110/59 96 02/18/20 08:00 98.7 F 97 20 110/65 96 02/18/20 07:00 101 H 16 99/49 94 L 02/18/20 06:45 102 H 20 99/48 02/18/20 06:30 104 H 20 106/48 02/18/20 06:15 104 H 18 101/48 02/18/20 06:00 105 H 20 103/57 94 L 02/18/20 05:45 104 H 21 107/51 02/18/20 05:30 103 H 20 102/51 02/18/20 05:15 105 H 15 105/55 02/18/20 05:00 106 H 14 106/49 94 L 02/18/20 04:45 106 H 10 L 94/55 02/18/20 04:30 104 H 19 95/49 02/18/20 04:15 106 H 16 94/42 02/18/20 04:00 100.8 F H 105 H 12 98/47 94 L 07/26/20 03:45 105 H 8 L 95/54 02/18/20 03:30 105 H 14 94/46 02/18/20 03:15 105 H 11 L 99/50 02/18/20 03:00 107 H 13 84/48 95 02/18/20 02:45 107 H 11 L 86/48 95 02/18/20 02:30 105 H 15 78/45 02/18/20 02:15 106 H 15 83/48 02/18/20 02:00 106 H 19 89/43 95 02/18/20 01:45 107 H 14 86/44 02/18/20 01:30 105 H 11 L 90/64 02/18/20 01:15 107 H 22 100/58 02/18/20 01:00 112 H 15 95/53 95 02/18/20 00:45 113 H 15 91/51 02/18/20 00:30 114 H 12 102/49 02/18/20 00:15 110 H 25 H 96/50 02/18/20 00:04 110 H 23 96/50 02/18/20 00:00 102.6 F H 107 H 18 98/44 95 02/17/20 23:45 112 H 18 94/44 02/17/20 23:30 110 H 23 106/48 02/17/20 23:15 106 H 23 100/47 02/17/20 23:00 111 H 25 H 82/48 97 02/17/20 22:45 112 H 15 93/52 02/17/20 22:30 109 H 18 94/41 02/17/20 22:15 112 H 25 H 90/76 02/17/20 22:00 112 H 15 80/61 95 02/17/20 21:45 111 H 13 138/128 02/17/20 21:00 111 H 14 92/52 98 02/17/20 20:00 100.2 F H 105 H 106 H 21 83/68 94/36 97 02/17/20 19:00 100.4 F H 115 H 21 102/88 98 02/17/20 18:00 98.6 F 96 18 86/51 102/62 02/17/20 17:30 79/32 07 17:25 78/40 07 17:15 104 H 18 57/33 96 07/25/20 17:00 77/60 07//20 16:00 79/45 02/17/20 15:47 98 20 96/48 95 02/17/20 15:03 100 20 91/62 97 02/17/20 15:00 98 19 73/29 96 02/17/20 14:30 103 H 20 73/31 98 02/17/20 14:00 100 19 86/31 97 Intake and Output 02/17/20 02/18/20 02/18/20 22:59 06:59 14:59 Intake Total 2874.906 2130.757 774.629 Output Total 120 370 245 Balance 2754.906 1760.757 529.629 Intake: IV 2860 1670 520 Calcium Gluconate 1 gm In 100 Sodium Chloride 0.9% 100 ml @ 100 mls/hr IVPB ONCE ONE Rx#:[id number] Magnesium Sulfate-D5w Pmx 200 1 gm In Dextrose/Water 1 100ml.bag @ 100 mls/hr IVPB Q1H [facility] Rx#: [id number] Meropenem 1 gm In Sodium 100 100 Chloride 0.9% 100 ml @ 200 mls/hr IVPB Q8HR [facility] Rx#:[id number] Potassium Chloride 20 meq 100 In Water For Injection 1 100ml.bag @ 50 mls/hr IVPB Q2H [facility] Rx#: [id number] Sodium Chloride 0.9% 1, 260 1170 520 000 ml @ 130 mls/hr IV . Q7H42M [facility] Rx#:[id number] Sodium Chloride 0.9% 2, 2000 000 ml @ 999 mls/hr IV . Q2H1M [facility] Rx#:[id number] Vancomycin 1,750 mg In 500 Sodium Chloride 0.9% 500 ml 500 ml @ 167 mls/hr IVPB Q24H [facility] Rx#: [id number] Intake, IV Titration 14.906 460.757 254.629 Amount Norepinephrine 4 mg In 14.906 460.757 Sodium Chloride 0.9% 250 ml @ 0.05 MCG/KG/MIN 19. 874 mls/hr IV .[id number] [facility] Rx#:[id number] Norepinephrine 8 mg In 254.629 Sodium Chloride 0.9% 250 ml @ 0.05 MCG/KG/MIN 10. 094 mls/hr IV .Q24H [facility] Rx#:[id number] Blood Product 0 Rc As-1 Unit 0 [id number] Output: Urine 120 370 245 Other: Voiding Method Indwelling Catheter Indwelling Catheter Indwelling Catheter Weight 104.326 kg 102.467 kg 102.467 kg ABP, PAP, CO, CI - Last 8 Hours Arterial Blood Pressure 108/49 Physical Exam: Revealed 69-year-old female lethargic, in no form of respiratory distress. Head: Atraumatic, normocephalic. HEENT:[Neck is supple.] [No neck masses.] [No thyromegaly.] [No JVD.] PERRLA, EOMI, no icterus, however the patient is noted to be pale and has pale conjunctivae Chest: [Symmetrical chest expansion, diminished breath sounds at the bases no rhonchi no wheezes no chest wall tenderness.] Cardiac Exam: [Normal S1 and S2, no S3 gallop, 2/6 systolic murmur at the left lower sternal border. Abdomen: Obese, [Soft, nontender, no megaly, no rebound, no guarding, normal bowel sounds.] Extremities: Significant cellulitis noted in the pictures of both left and right lower extremities. And she has a sacral decubitus ulcer stage IV. This was also noted in the pictures taken earlier by the nurses. Neurological Exam: Patient is lethargic, however she is arousable, generally weak, follows simple instructions only. Psychiatric: Blunted mood and affect. Mental status is questionable patient is lethargic. Skin: Extensive cellulitis of extremities and has sacral decubitus ulcer. Results - Laboratory Findings CBC and BMP: 02/18/20 04:20 02/18/20 04:20 PT/INR, D-dimer PT 15.1 sec (9.0-12.0) H 02/17/20 13:18 INR 1.5 (<1.2) H 02/17/20 13:18 Abnormal lab findings: Abnormal Labs 02/17/20 02/17/20 02/17/20 13:18 13:18 13:18 WBC 22.2 H RBC 3.49 L Hgb 8.2 L Hct 28.6 L MCH 23.6 L MCHC 28.8 L RDW 18.6 H Neutrophils # 20.5 H Lymphocytes # 0.9 L PT 15.1 H INR 1.5 H APTT 33.3 H Sodium 135 L Potassium Chloride Carbon Dioxide BUN 30 H Creatinine 1.07 H Glucose 67 L POC Glucose (mg/dL) Calcium Phosphorus Magnesium Creatine Kinase 28 L Total Protein 5.3 L Albumin 2.7 L Crossmatch 02/17/20 02/17/20 02/17/20 18:07 18:53 19:07 WBC RBC Hgb Hct MCH MCHC RDW Neutrophils # Lymphocytes # PT INR APTT Sodium Potassium Chloride Carbon Dioxide BUN Creatinine Glucose POC Glucose (mg/dL) 54 L 69 L 69 L Calcium Phosphorus Magnesium Creatine Kinase Total Protein Albumin Crossmatch 02/17/20 02/18/20 02/18/20 19:54 04:20 04:20 WBC 17.9 H RBC 2.84 L Hgb 6.9 L* Hct 24.1 L MCH 24.4 L MCHC 28.7 L RDW 18.3 H Neutrophils # 16.1 H Lymphocytes # 0.9 L PT INR APTT Sodium 135 L Potassium 3.1 L Chloride 117 H Carbon Dioxide 18 L BUN 21 H Creatinine Glucose POC Glucose (mg/dL) 104 H Calcium 6.1 L* Phosphorus 2.0 L Magnesium 1.4 L Creatine Kinase Total Protein Albumin Crossmatch 02/18/20 06:25 WBC RBC Hgb Hct MCH MCHC RDW Neutrophils # Lymphocytes # PT INR APTT Sodium Potassium Chloride Carbon Dioxide BUN Creatinine Glucose POC Glucose (mg/dL) Calcium Phosphorus Magnesium Creatine Kinase Total Protein Albumin Crossmatch See Detail - Diagnostic Findings Chest x-ray: image reviewed (Chest x-ray post subclavian line placement showed adequate placement, and no evidence of any complication.) Additional studies: X-rays of the be a fibula bilaterally showed mostly soft tissue calcification, no bone destruction, and no evidence of osteomyelitis. Assessment and Plan Assessment: Impression: Severe sepsis and septic shock secondary to infected bilateral lower extremities nonhealing wounds. Chronic sacral decubitus. And chronic nonhealing lower extremities ulcers. History of polymicrobial infections including Pseudomonas, Proteus, enterococcus, and MRSA, and her bilateral lower extremities ulcers. Acute on chronic anemia, hemoglobin today is 6.9, and the patient will receive a unit of packed RBCs. History of rheumatoid arthritis. History of deep vein thrombosis, maintained on Xarelto. History of hypothyroidism. Peripheral neuropathy. History of chronic Charles catheter placement. Recommendation: Agree with the present antibiotics as.per Infectious disease on the case Agree with fluids and pressors to maintain an adequate mean arterial pressure above 65. Continue GI and DVT prophylaxis. Central line was placed mostly because the PICC line she has in the left brachia l vein is not enough considering the patient is on multiple drips at present and she is also requiring a blood transfusion. Radial arterial line was also placed to monitor blood pressure while on nore pinephrine. Continue to monitor the patient in the ICU. CODE STATUS is full. We'll continue to follow. Patient is critically ill. Time with Patient: Greater than 30
[2020-02-18] MEDS: HYDROcodone/APAP 10-325MG 1 EACH TAB PO PRN (16:54)
--- NOTE | 2020-02-18 21:54 | PN ---
PROGRESS NOTE DATE OF SERVICE: 02/18/2020 REASON FOR FOLLOWUP: Bilateral lower extremity wound cellulitis and sepsis. INTERVAL HISTORY: Patient did spike a fever around midnight of 102.3. The patient afebrile since then. The patient is requiring pressor support to blood pressure though slightly decreased per the RN. The patient denies any chest pain or shortness of breath or cough. Still complaining of pain to the left leg area. No vomiting. No abdominal pain. No diarrhea. PHYSICAL EXAMINATION: Blood pressure 115/63 with a pulse of 90, temperature 98.9. She is 96% on room air. General description: The patient is an elderly female lying in bed in no distress. Respiratory system: Unlabored breathing. Clear to auscultation anteriorly. Heart S1, S2. Regular rate and rhythm. Abdomen soft, no tenderness. Legs: Wounds are currently dressed up. No obvious drainage on the dressing. LABS: Hemoglobin 6.8, white count 17.9, BUN of 21, creatinine 0.74. Blood culture with group D Enterococcus with concern for VRE. Leg wound culture with Pseudomonas species. DIAGNOSTIC IMPRESSION AND PLAN: Patient with infected bilateral lower extremity wound with secondary cellulitis, now with evidence of gram-positive bacteremia, possible VRE. Antibiotic has been adjusted to daptomycin and meropenem to continue local wound care with Santyl followed by moist dressing and monitor clinical course closely. MMODL / IJN: [id number] /
[2020-02-18 23:49] LABS: Glucose,Whole Blood 110 mg/dL (75-99)
[2020-02-19] MEDS: MEROPENEM 1 GM in SODIUM CHLORIDE 0.9% 100 ML IVPB SCH ×4 (00:51→23:12)
[2020-02-19] MEDS: SODIUM CHLORIDE 0.9% 1,000 ML IV SCH ×4 (03:57→23:15)
[2020-02-19 04:22] LABS: Anisocytosis Slight; Basophils % (A) 0 %; Eosinophils # (A) 0.4 k/uL (0-0.7); Eosinophils % (A) 3 %; HCT 28.5 % (34.0-46.0); HGB 8.3 gm/dL (11.4-16.0); Hypochromasia Marked; Lymphocytes # (A) 0.5 k/uL (1.0-4.8); Lymphocytes % (A) 4 %; MCH 24.2 pg (25.0-35.0); MCHC 29.1 g/dL (31.0-37.0); MCV 83.4 fL (80.0-100.0); Mean Platelet Volume 7.8; Monocytes # (A) 0.4 k/uL (0-1.0); Monocytes % (A) 3 %; Neutrophils # (A) 13.4 k/uL (1.3-7.7); Neutrophils % (A) 90 %; Platelet Count 383 k/uL (150-450); Poikilocytosis Slight; RBC 3.42 m/uL (3.80-5.40); RDW 18.1 % (11.5-15.5); WBC 14.9 k/uL (3.8-10.6)
[2020-02-19 04:33] LABS: Calcium 7.5 mg/dL (8.4-10.2); Magnesium 2.2 mg/dL (1.6-2.3); Potassium 3.9 mmol/L (3.5-5.1)
[2020-02-19] MEDS ORDERED: POTASSIUM CHLORIDE 20 MEQ in WATER FOR INJECTION 1 100ML.BAG IVPB ONE (04:38)
[2020-02-19] MEDS: NOREPINEPHRINE 8 MG in SODIUM CHLORIDE 0.9% 250 ML IV SCH (05:08)
[2020-02-19] MEDS ORDERED: COLLAGENASE 250 UNIT/GM OINTMENT 30 GM TUBE TOPICAL SCH (09:00)
--- NOTE | 2020-02-19 10:07 | P.PN ---
Subjective Progress Note Date: 02/19/20 Principal diagnosis: Sepsis, infected and nonhealing wounds on bilateral lower extremities, septic shock This is a 69-year-old female with history of multiple medical problems including rheumatoid arthritis. Patient has chronic cellulitis and chronic nonhealing wounds of both lower extremities. History of stage IV sacral decubitus ulcer treated with wound VAC. And has been followed at the wound healing center at [facility] by Dr. Medina. Patient had a recent placement of the PICC line for IV antibiotics, and she was on Rocephin for the last 10 days. Patient was advised to go to the ER because she was noted to be extremely lethargic and fatigued. In the ER, patient was noted to be relatively hypotensive, she had worsening bilateral nonhealing wounds on both lower extremities. And worsening decubitus ulcer./Sacral ulcer. Patient was also not ed to have leukocytosis along with hypotension. Started on antibiotics in the form of vancomycin and meropenem. She was also given fluid boluses. And she was admitted to telemetry. However the patient continued to have hypotensive episodes. And her blood pressure was as low as 55 systolic. Hence the patient was transferred to the intensive care unit. After evaluating the patient, I recommended a central line which was placed in the right subclavian, I also placed a right radial arterial line, and started the patient on norepinephrine. Kept her on antibiotics as per infectious disease on the case. Her blood culture from 02/16 is positive for group D enterococcus. Patient was also noted to have a low hemoglobin of 6.9, and I recommended a unit of blood to be transfused. Fluid boluses were given , and I have recommended monitoring CVP. On 02/19/2020 patient seen in follow-up in the intensive care unit, she is resting comfortably in bed, in no acute distress, appears to be weak, but she denies any difficulty breathing, room air pulse ox is 96%, breathing seems to be comfortable, IV 0.9 normal saline at a rate of 1:30 ML per hour, levo fed is at 3 mics per minute, she is in sinus mechanism with a controlled rate. Yesterday patient received a unit of packed red blood cells for a hemoglobin of 6.9, there is no obvious source of bleeding, and the anemia is thought to be hemodilution all in addition to chronic anemia. He does have a low-grade fever this morning with a temp of 99.4F, she's been afebrile overnight. Patient is currently on a combination of daptomycin, meropenem for antibiotic coverage, lower extremities are covered with dressings, and there is yellowish colored wound drainage, and through the Kerlix wraps. Today's labs have been reviewed with blood cell count is down to 14.9, hemoglobin is 8.3, platelet count is 383, sodium is 134, potassium 3.9, chloride is 114, CO2 is 19, BUN is 19 and creatinine 0.81. ID service is following. No altered mentation, patient is answering questions appropriately, no nausea vomiting or diarrhea, dietary service has been consulted for nutritional supplementation recommendations. Objective - Vital Signs Vital signs: Vital Signs Temp 99.4 F 02/19/20 04:00 Pulse 92 02/19/20 07:00 Resp 16 02/19/20 07:00 BP 110/55 02/18/20 12:18 Pulse Ox 94 L 02/19/20 07:00 Intake & Output 02/18/20 02/19/20 02/19/20 18:59 06:59 18:59 Intake Total 2920.390 1810.475 133.903 Output Total 835 635 60 Balance 2085.390 1175.475 73.903 Weight 102.467 kg 106.503 kg Intake: IV 2030 1760 130 Meropenem 1 gm In Sodium 100 100 Chloride 0.9% 100 ml @ 200 mls/hr IVPB Q8HR [facility] Rx#:[id number] Potassium Chloride 20 meq 100 In Water For Injection 1 100ml.bag @ 50 mls/hr IVPB Q2H [facility] Rx#: [id number] Sodium Chloride 0.9% 1, 1430 1560 130 000 ml @ 130 mls/hr IV . Q7H42M [facility] Rx#:[id number] Vancomycin 1,750 mg In 500 Sodium Chloride 0.9% 500 ml 500 ml @ 167 mls/hr IVPB Q24H [facility] Rx#: [id number] Intake, IV Titration 480.390 50.475 3.903 Amount Norepinephrine 8 mg In 480.390 50.475 3.903 Sodium Chloride 0.9% 250 ml @ 0.05 MCG/KG/MIN 10. 094 mls/hr IV .Q24H [facility] Rx#:[id number] Oral 100 Blood Product 310 Rc As-1 Unit 310 [id number] Output: Urine 835 635 60 Other: Voiding Method Indwelling Catheter Indwelling Catheter ABP, PAP, CO, CI - Last Documented Arterial Blood Pressure 116/50 - Exam GENERAL EXAM: Alert, very pleasant, 69-year-old white female, on room air, with a pulse ox of 94%, appears pale, but no acute distress, answers questions appropriate, no altered mentation comfortable in no apparent distress. HEAD: Normocephalic/atraumatic. EYES: Normal reaction of pupils, equal size. Conjunctiva pink, sclera white. NOSE: Clear with pink turbinates. THROAT: No erythema or exudates. NECK: No masses, no JVD, no thyroid enlargement, no adenopathy. CHEST: No chest wall deformity. Symmetrical expansion. LUNGS: Equal air entry with no crackles, wheeze, rhonchi or dullness. CVS: Regular rate and rhythm, normal S1 and S2, no gallops, no murmurs, no rubs ABDOMEN: Soft, nontender. No hepatosplenomegaly, normal bowel sounds, no guarding or rigidity. EXTREMITIES: No clubbing, no edema, no cyanosis, 2+ pulses and upper and lower extremities. MUSCULOSKELETAL: Muscle strength and tone normal. SPINE: No scoliosis or deformity SKIN: No rashes, chronic bilateral lower extremity wounds, that are covered with dressings with yellow colored drainage coming through the dressings CENTRAL NERVOUS SYSTEM: Alert and oriented -3. No focal deficits, tone is normal in all 4 extremities. PSYCHIATRIC: Alert and oriented -3. Appropriate affect. Intact judgment and insight. - Labs CBC & Chem 7: 02/19/20 04:05 02/19/20 04:05 Labs: Abnormal Lab Results - Last 24 Hours (Table) 02/18/20 02/18/20 02/19/20 Range/Units 06:25 23:46 04:05 WBC (3.8-10.6) k/uL RBC (3.80-5.40) m/uL Hgb (11.4-16.0) gm/dL Hct (34.0-46.0) % MCH (25.0-35.0) pg MCHC (31.0-37.0) g/dL RDW (11.5-15.5) % Neutrophils # (1.3-7.7) k/uL Lymphocytes # (1.0-4.8) k/uL Sodium 134 L (137-145) mmol/L Chloride 114 H (98-107) mmol/L Carbon Dioxide 19 L (22-30) mmol/L BUN 19 H (7-17) mg/dL POC Glucose (mg/dL) 110 H (75-99) mg/dL Calcium 7.5 L (8.4-10.2) mg/dL Crossmatch See Detail 02/19/20 Range/Units 04:05 WBC 14.9 H (3.8-10.6) k/uL RBC 3.42 L (3.80-5.40) m/uL Hgb 8.3 L (11.4-16.0) gm/dL Hct 28.5 L (34.0-46.0) % MCH 24.2 L (25.0-35.0) pg MCHC 29.1 L (31.0-37.0) g/dL RDW 18.1 H (11.5-15.5) % Neutrophils # 13.4 H (1.3-7.7) k/uL Lymphocytes # 0.5 L (1.0-4.8) k/uL Sodium (137-145) mmol/L Chloride (98-107) mmol/L Carbon Dioxide (22-30) mmol/L BUN (7-17) mg/dL POC Glucose (mg/dL) (75-99) mg/dL Calcium (8.4-10.2) mg/dL Crossmatch Microbiology - Last 24 Hours (Table) 02/17/20 21:20 Blood Culture - Preliminary Blood No Growth after 24 hours 02/17/20 13:18 Blood Culture Gram Stain - Preliminary Blood Blood Culture - Preliminary Group D Enterococcus 02/17/20 13:42 Gram Stain - Preliminary Leg - Left Wound Culture - Preliminary Pseudomonas spec Assessment and Plan Plan: Assessment: #1. Severe sepsis and septic shock secondary to infected bilateral lower extremities nonhealing wounds, left leg wound culture is positive for pseudomonas species, final culture is pending, currently patient is on combination of daptomycin and meropenem #2. Chronic sacral decubitus, and chronic nonhealing lower extremity ulcers #3. Group D enterococcus bacteremia in the single blood culture on 02/17/2020, repeat blood culture has shown no growth at the 24 hours #4. Acute on chronic anemia, possibly hemodilution oh, with no evidence of active bleeding, status post transfusion with 1 unit of packed red blood cells on 02/18/2020 #5. History of polymicrobial infections including Pseudomonas, Proteus, enterococcus and MRSA in bilateral lower extremity ulcers #6. History of rheumatoid arthritis #7. History of DVTs maintained on the Xarelto which is currently on hold #8. History of hypothyroidism #9. Peripheral neuropathy #10. History of chronic indwelling catheter Plan: We will try to wean the vasopressor support, patient is only on 3 mics per minute of levophed, will obtain a random serum cortisol, and TSH level. Obvious source of bleeding, we'll continue to hold oral anti-coagulation. Cultures have been noted, ID service is following, antibiotics per their recommendation. No pulmonary complaints, no shortness of breath, patient is on room air. Consult registered dietitian for recommendations on nutrition. Wound care recommendations per ID service. Continue IV fluids at a rate of 130 ML per skyler r. We'll add PPI and and DVT prophylaxis. Continue to monitor in the intensive care unit I performed a history & physical examination of the patient and discussed their management with my nurse practitioner, Alberta Euceda. I reviewed the nurse practitioner's note and agree with the documented findings and plan of care. Lung sounds are positive for clear breath sounds. The findings and the i mpression was discussed with the patient. I attest to the documentation by the nurse practitioner. Critical time greater than 30 minutes Time with Patient: Greater than 30
[2020-02-19] MEDS: PANTOPRAZOLE 40 MG/10 ML VIAL IVP SCH (10:46)
[2020-02-19 11:18] LABS: T4, Free (Free Thyroxine) 0.96 ng/dL (0.78-2.19)
[2020-02-19] MEDS: POTASSIUM CHLORIDE 20 MEQ in WATER FOR INJECTION 1 100ML.BAG IVPB SCH (11:54)
--- NOTE | 2020-02-19 13:25 | P.PN ---
Subjective Progress Note Date: 02/19/20 This is a 69-year-old female in my patient with a previous medical history significant for rheumatoid arthritis with significant deformities, currently wheelchair bound/bedbound, nonhealing wounds for bilateral lower extremities as well as stage IV sacral decubitus ulcer for which she has been t reated with a wound VAC, she has been following with the wound healing Center at [facility] with Dr. Medina on a weekly basis and recently she had a PIC line inserted and she was started on IV antibiotic in the form of Rocephin for the next 10 days however she was told that the patient may need to go to the emergency department if she is not doing better over the next few days, patient while she was at home she was extremely lethargic and she was fatigued and tired she was feeling cold her daughter brought her to the ER at [facility] and she was found to have a worsening bilateral nonhealing wounds worse on the posterior left leg and the right heel along with a decubiti on the sacral area that was covered with a wound VAC, patient did have hypotension and leukocytosis initially and she was started on IV antibiotic in the form of vancomycin and meropenem, 1 cultures as well as blood cultures were obtained, patient initially did receive a bolus of IV fluid and blood pressure was a bit better so the emergency room physician sent the patient to telemetry unit however the patient became hypotensive on the floor blood pressure drop to 55/35 and 18 was called and patient was transferred to the intensive care unit, Dr. Metz, patient had an arterial line placed and as well as triple lumen catheter in the right subclavian vein, she was kept on norepinephrine after the IV bolus and she was started on vancomycin and meropenem she was seen in consultation by infectious disease as well. She is to be treated in intensive care unit, her prognosis very guarded and she will definitely need to go to extended care facility for better wound healing. 02/18: Patient remains in the intensive care unit. She has been afebrile since the morning of February 17, heart rate 96, blood pressure 119/50, pulse ox 95% on room air. Repeat blood work reveals WBC improved at 14.9, hemoglobin at 8.3, platelet count 383. Sodium 134, potassium 3.9, chloride 114, CO2 19, BUN 19 and creatinine 0.81. TSH 13.3 and free T4 normal at 0.96, cortisol level 21. Blood culture is group D enterococcus, all left leg wound is Pseudomonas. Repeat blood culture is in progress with no growth after 24 hours. Patient is followed by Dr. Rangel with recommendations for daptomycin and meropenem and continue local wound care with Santyl. 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 Patient has been on levofed had low dose and to be weaned off. Xarelto is currently on hold. Patient complains of feeling cold and shivering. She has had diarrhea and fecal management system has been added. She does complain of soreness to the buttocks area. Wound VAC to be applied. Charles catheter is in place. Th yroid dosing increased. Objective - Vital Signs Vital signs: Vital Signs Temp 98.3 F 02/19/20 08:00 Pulse 93 02/19/20 11:00 Resp 14 02/19/20 11:00 BP 110/55 02/18/20 12:18 Pulse Ox 96 02/19/20 11:00 Intake & Output 02/18/20 02/19/20 02/19/20 18:59 06:59 18:59 Intake Total 2920.390 1810.475 644.998 Output Total 835 635 360 Balance 2085.390 1175.475 284.998 Weight 102.467 kg 106.503 kg Intake: IV 2030 1760 620 Meropenem 1 gm In Sodium 100 100 100 Chloride 0.9% 100 ml @ 200 mls/hr IVPB Q8HR [facility] Rx#:[id number] Potassium Chloride 20 meq 100 In Water For Injection 1 100ml.bag @ 50 mls/hr IVPB Q2H [facility] Rx#: [id number] Sodium Chloride 0.9% 1, 1430 1560 520 000 ml @ 130 mls/hr IV . Q7H42M [facility] Rx#:[id number] Vancomycin 1,750 mg In 500 Sodium Chloride 0.9% 500 ml 500 ml @ 167 mls/hr IVPB Q24H [facility] Rx#: [id number] Intake, IV Titration 480.390 50.475 24.998 Amount Norepinephrine 8 mg In 480.390 50.475 24.998 Sodium Chloride 0.9% 250 ml @ 0.05 MCG/KG/MIN 10. 094 mls/hr IV .Q24H [facility] Rx#:[id number] Oral 100 Blood Product 310 Rc As-1 Unit 310 [id number] Output: Urine 835 635 360 Other: Voiding Method Indwelling Catheter Indwelling Catheter ABP, PAP, CO, CI - Last Documented Arterial Blood Pressure 130/46 - Exam Review of Systems Constitutional: Reports anorexia, Reports chills, Reports chronic pain, Reports fatigue, Reports malaise, Reports night sweats, Reports weakness Eyes: denies blurred vision, denies bulging eye, denies decreased vision Ears: deny: decreased hearing Ears, nose, mouth and throat: Denies dysphagia, Denies neck lump, Denies sore throat Cardiovascular: Denies chest pain, Denies decreased exercise tolerance, Denies dyspnea on exertion, Denies lightheadedness, Denies rapid heart beat, Denies shortness of breath, Denies syncope Respiratory: Denies congestion, Denies cough with sputum, Denies home oxygen, Denies sleep apnea, Denies snoring, Denies wheezing Gastrointestinal: Reports loss of appetite, Denies abdominal pain, Denies BRBPR, Denies heartburn, Denies melena, Denies nausea, Denies vomiting, reports diarrhe a Genitourinary: Denies dysuria Menstruation: Reports postmenopausal Musculoskeletal: Reports gait dysfunction, Reports leg numbness/tingling, Reports muscle weakness Musculoskeletal: bilateral: ankle pain, ankle stiffness, ankle swelling, foot pain, foot stiffness, foot swelling, hand pain, hand stiffness, hand swelling, absent: elbow pain, elbow stiffness, elbow swelling, hip pain, hip stiffness, hip swelling, knee pain, knee stiffness, knee swelling, shoulder pain, shoulder stiffness, shoulder swelling, wrist pain, wrist stiffness, wrist swelling Integumentary: Reports wounds (Left lower extremity, right heel, sacral.) Neurological: Reports gait dysfunction, Reports sensory deficit, Reports weakness, Denies confusion, Denies memory loss, Denies syncope, Denies tremors, Denies vertigo Psychiatric: Reports depression, Denies sadness/tearfulness, Denies sleep disturbances, Denies suicidal ideation Endocrine: Reports fatigue Physical examination: GEN: This is an obese 69-year-old female. She is resting in ICU bed and appears to be comfortable and in no acute distress. HEENT: Head is atraumatic, normocephalic, pupils were equal round reactive to light and accommodation, extraocular muscle movement intact. Neck:Supple, no JVD, decreased carotid upstroke laterally. Chest: Decreased breath sounds at the bases, few rhonchi, no expiratory wheezes, no chest tenderness, no intercostal retractions. Heart: First heart sound is depressed, second heart sounds normal, tachycardic, there is systolic murmur 2/6. Left sternal border. Abdomen: Soft, nontender, nondistended, positive bowel sounds. Fecal management system in place. Charles catheter in place draining clear emily urine. Extremities: Bilateral lower extremity with significant wound nonhealing please refer to the pictures in the chart left lower extremity with significant wound r ight heel with significant wound sacral area with a clean wound, there is deformities in upper and lower extremities due to her rheumatoid arthritis, dorsalis pedis +1 bilaterally. Neurologic examination: Patient is awake alert and oriented 3, cranial nerves III-12 grossly intact, moves all her extremities, however she generally weak. - Labs CBC & Chem 7: 02/19/20 04:05 02/19/20 04:05 Labs: Abnormal Lab Results - Last 24 Hours (Table) 02/18/20 02/18/20 02/19/20 Range/Units 06:25 23:46 04:05 WBC (3.8-10.6) k/uL RBC (3.80-5.40) m/uL Hgb (11.4-16.0) gm/dL Hct (34.0-46.0) % MCH (25.0-35.0) pg MCHC (31.0-37.0) g/dL RDW (11.5-15.5) % Neutrophils # (1.3-7.7) k/uL Lymphocytes # (1.0-4.8) k/uL Sodium 134 L (137-145) mmol/L Chloride 114 H (98-107) mmol/L Carbon Dioxide 19 L (22-30) mmol/L BUN 19 H (7-17) mg/dL POC Glucose (mg/dL) 110 H (75-99) mg/dL Calcium 7.5 L (8.4-10.2) mg/dL TSH (0.465-4.680) mIU/L Crossmatch See Detail 02/19/20 02/19/20 Range/Units 04:05 04:05 WBC 14.9 H (3.8-10.6) k/uL RBC 3.42 L (3.80-5.40) m/uL Hgb 8.3 L (11.4-16.0) gm/dL Hct 28.5 L (34.0-46.0) % MCH 24.2 L (25.0-35.0) pg MCHC 29.1 L (31.0-37.0) g/dL RDW 18.1 H (11.5-15.5) % Neutrophils # 13.4 H (1.3-7.7) k/uL Lymphocytes # 0.5 L (1.0-4.8) k/uL Sodium (137-145) mmol/L Chloride (98-107) mmol/L Carbon Dioxide (22-30) mmol/L BUN (7-17) mg/dL POC Glucose (mg/dL) (75-99) mg/dL Calcium (8.4-10.2) mg/dL TSH 13.300 H (0.465-4.680) mIU/L Crossmatch Microbiology - Last 24 Hours (Table) 02/17/20 21:20 Blood Culture - Preliminary Blood No Growth after 24 hours 02/17/20 13:18 Blood Culture Gram Stain - Preliminary Blood Blood Culture - Preliminary Group D Enterococcus 02/17/20 13:42 Gram Stain - Preliminary Leg - Left Wound Culture - Preliminary Pseudomonas spec Assessment and Plan Plan: Assessment and Plan 1. Bilateral nonhealing wounds in both lower extremities mostly left and right heel along with a chronic sacral decubitus. Patient was seen in consultation by infectious disease she was started on Vibramycin and meropenem as the patient did have a prior history of pseudomonas aeruginosa as well as MRSA along with Proteus and enterococcus. Wound cultures were obtained in the emergency department, blood cultures were obtained as well, we'll continue local care as per infectious disease recommendation. 2. Severe sepsis with hypotension and septic shock due to infected bilateral lower extremity nonhealing wounds and bacteremia. Continue IV fluid, continue L evophed-to be weaned off, continue IV antibiotic in the form of daptomycin and meropenem, consult with infectious disease and line ordering clinician. Continue current plan as for ICU care. Hold Lasix due to hypotension. 3. Leukocytosis related to an infected bilateral lower extremities wounds. Repeat her CBC in the next 24 hours. 4. Mild hyponatremia and hypokalemia, status post replacement. 5. Hypomagnesemia status post replacement. 6. Acute on chronic anemia possibly due to blood loss and chronic medical illness. Transfuse for hemoglobin less than 7. She is status post transfusion 1 unit of packed RBCs. 7. Rheumatoid arthritis with chronic pain. Continue Arava 20 mg orally once every day fentanyl patch 12 micrograms every 72 hours, [place] 10 one every 8 hours for breakthrough pain., Lyrica 100 mg twice daily. 8. History of DVT. Xarelto 20 mg daily. 9. Hypothyroidism. Continue levothyroxine increased to 225 g daily. 10. Peripheral neuropathy. Continue patient on Lyrica 100 mg orally twice every day. 11. Chronic Charles catheter. Due to nonhealing decubitus ulcers. 12. Diarrhea. Fecal management system in place. 13. DVT prophylaxis. Continue Lovenox for now. Patient will be resumed on Xarelto at later time. 14. GI prophylaxis. We will maintain patient on Protonix 40 mg once every day. 15. Patient is full code. 16. COVID-19 testing. Very guarded prognosis. Discharge plan: [place] possibly by the end of the week. Social work consult. Impression and plan of care have been directed as dictated by the signing physician. Arlene Darnell nurse practitioner acting as scribe for signing physician.
--- NOTE | 2020-02-19 14:31 | P.CONS ---
History of Present Illness - Reason for Consult Consult date: 02/19/20 Wound care - History of Present Illness This is a 69-year-old patient known to the wound care center for nonhealing ulcerations to bilateral lower extremities and right ischium. Patient previously had a wound VAC in place but due to her home environment she was unable to keep in place. Patient has been utilizing Santyl to the lower extremity ulcerations. Patient has history of pyoderma gangrenosum. Patient has been on IV Rocephin with the PICC line. Continues to have bone exposure to the right ischium. Review of Systems Review Of Systems: Constitutional: No fever, no chills, no night sweats. No weight change. No weakness, fatigue or lethargy. No daytime sleepiness. Integumentary:reports wounds, no lesions. No rash or pruritus. No unusual bruising. No change in hair or nails. Past Medical History Past Medical History: Deep Vein Thrombosis (DVT), Fibromyalgia, GI Bleed, Hypertension, Renal Disease, Rheumatoid Arthritis (RA), Skin Disorder, Thyroid Disorder Additional Past Medical History / Comment(s): Hx bleeding stomach ulcer. CKD, stage II; "Leaky bladder," "poor circulation," Hx Wound rt foot 3rd toe, bunion on left foot, Hx Rt hip fx, no surg. Debilitated D/T RA -. current wounds on right buttock - has wound vac, right heal, and bilateral shins - goes to Wound Center.current wounds on right buttock, right heal, and bilateral shins. History of Any Multi-Drug Resistant Organisms: MRSA Year Discovered:: 12/08/19 MDRO Source:: RIGHT HIP Past Surgical History: Appendectomy, Cholecystectomy, Tonsillectomy Additional Past Surgical History / Comment(s): Lt foot wound debridement. Nodule exc from thyroid. Sinus surgery. surgical excision, debridment of sacrum w/ wound VAC placement on 08/05/15 and sx done(flap), developed pin hole leak - had 2nd sx to repair. Debridement wound care to RLE wound on 08/21/15. Past Anesthesia/Blood Transfusion Reactions: No Reported Reaction Additional Past Anesthesia/Blood Transfusion Reaction / Comm: Pt has received blood in past without reaction. Past Psychological History: No Psychological Hx Reported Additional Psychological History / Comment(s): pt lives at [facility] Smoking Status: Never smoker Past Alcohol Use History: None Reported Additional Past Alcohol Use History / Comment(s): Patient is a lifelong nonsmoker. She resides at [facility]. Past Drug Use History: None Reported - Past Family History Mother Family Medical History: AFIB, Cancer Additional Family Medical History / Comment(s): skin cancer Father Family Medical History: Cancer, Liver Disease, Rheumatoid Arthritis (RA) Additional Family Medical History / Comment(s): Leukemia. at age 72 of liver problem. Medications and Allergies Home Medications Medication Instructions Recorded Confirmed Type Levothyroxine Sodium [Synthroid] 200 mcg PO DAILY 08/26/17 02/17/20 History Rivaroxaban [Xarelto] 20 mg PO DAILY@0800 07/10/19 02/17/20 History Ferrous Sulfate [Feosol] 325 mg PO DAILY 09/03/19 02/17/20 History Midodrine [ProAmatine] 10 mg PO AC-TID tab 09/07/19 02/17/20 Rx Sucralfate [Carafate] 1 gm PO AC-TID #90 tab 09/07/19 02/17/20 Rx Leflunomide [Arava] 20 mg PO DAILY 10/10/19 02/17/20 History Collagenase [Santyl] 1 applic TOPICAL DAILY applic 10/13/19 02/17/20 Rx Furosemide [Lasix] 20 mg PO MOWEFR 02/02/20 02/17/20 History HYDROcodone/APAP 10-325MG [[place] 1 tab PO Q8HR PRN 02/02/20 02/17/20 History 10-325] Potassium Chloride ER [K-Dur 10] 10 meq PO MOWEFR 02/02/20 02/17/20 History predniSONE [Deltasone] 20 mg PO DAILY 02/02/20 02/17/20 History Pregabalin [Lyrica] 100 mg PO BID 02/17/20 02/17/20 History cefTRIAXone [Rocephin] 1 gm IVPB Q12H 02/17/20 02/17/20 History Allergies Allergy/AdvReac Type Severity Reaction Status Date / Time Penicillins Allergy Rash/Hives Verified 02/17/20 14:11 POSITIVE TB REACTOR Allergy Unknown Uncoded 02/02/20 11:39 Physical Exam Vitals: Vital Signs Temp Pulse Resp Pulse Ox 02/19/20 12:00 98.6 F 92 18 100 02/19/20 11:00 93 14 96 02/19/20 10:00 96 18 02/19/20 09:00 92 16 02/19/20 08:00 98.3 F 96 15 95 02/19/20 07:00 92 16 94 L 02/19/20 06:00 95 19 95 02/19/20 05:00 91 19 95 02/19/20 04:00 99.4 F 93 17 94 L 02/19/20 03:00 96 20 94 L 02/19/20 02:00 93 15 94 L 02/19/20 01:00 91 16 02/19/20 00:00 99.1 F 92 21 94 L 02/18/20 23:06 90 15 02/18/20 23:00 91 18 94 L 02/18/20 22:00 92 17 94 L 02/18/20 21:00 90 17 94 L 02/18/20 20:00 98.9 F 92 18 95 02/18/20 19:00 98 20 98 02/18/20 18:00 96 12 96 02/18/20 17:00 91 18 96 02/18/20 16:00 98.9 F 93 26 H 96 02/18/20 15:00 102 H 20 96 Intake and Output 02/18/20 02/19/20 02/19/20 22:59 06:59 14:59 Intake Total 9827.317 6275.236 824.998 Output Total 550 450 460 Balance 848.000 808.236 364.998 Intake: IV 1040 1240 800 DAPTOmycin 600 mg In 50 Sodium Chloride 0.9% 50 ml @ 100 mls/hr IVPB DAILY@1200 [facility] Rx#: [id number] Meropenem 1 gm In Sodium 100 100 Chloride 0.9% 100 ml @ 200 mls/hr IVPB Q8HR [facility] Rx#:[id number] Potassium Chloride 20 meq 100 In Water For Injection 1 100ml.bag @ 50 mls/hr IVPB Q2H [facility] Rx#: [id number] Sodium Chloride 0.9% 1, 1040 1040 650 000 ml @ 130 mls/hr IV . Q7H42M [facility] Rx#:[id number] Intake, IV Titration 258.000 18.236 24.998 Amount Norepinephrine 8 mg In 258.000 18.236 24.998 Sodium Chloride 0.9% 250 ml @ 0.05 MCG/KG/MIN 10. 094 mls/hr IV .Q24H [facility] Rx#:[id number] Oral 100 Output: Urine 550 450 460 Other: Voiding Method Indwelling Catheter Indwelling Catheter Weight 106.503 kg ABP, PAP, CO, CI - Last 8 Hours Arterial Blood Pressure 112/44 Arterial Blood Pressure 130/46 Arterial Blood Pressure 141/64 Arterial Blood Pressure 101/43 Arterial Blood Pressure 119/50 Arterial Blood Pressure 116/50 Physical exam: General Appearance: Alert, cooperative, no distress, appears stated age. Skin: Left lateral leg: Full thickness ulceration etiology of pyoderma, measuring 12.3 x 6.3 x 0.3 cm that layer exposure. No tunneling or undermining. Large amount of serous drainage. Wound margins distinct without line attached to the wound base. Small pink granulation within the wound bed. Large amount of necrotic tissue including adherent Slough. Right anterior lower leg full- thickness ulceration etiology pyoderma measuring 4.1 x 4.6 x 0.4 cm with fat layer exposure no tunneling or undermining medium amount of serous drainage. Wound margins foot and intact. Small amount of granulation seen within the wound bed. Large amount of necrotic tissue such as Slough. Left medial superior lower leg full-thickness ulceration etiology of pyoderma measuring 1.1 x 2.7 x 0.1 cm with fat layer exposure. No tunneling or undermining. [place] amount of serous drainage. The wound margins flat and intact. Small amount of granulation seen within the wound that. Large amount of necrotic tissue such as Slough. Right calcaneus stage III pressure ulcer measuring 0.5 x 0.9 x 0.5 with fat layer exposure. There is no tunneling or undermining. Small amount of serous drainage. Wound margins/intact. Large amounts granulation seen within the wound bed. Small amount of slough noted. Stage III pressure ulcer right posterior upper leg. Measuring 3.2 x 2 x 0.1 cm there is fat layer exposure. There is no tunneling and undermining. There is small amount of serous drainage. The largest line intact. Small amount of granulation seen within the wound bed. Large amount of slough. Right ischium ulcerations stage III pressure ulcer measuring 6.3 x 3.7 x 6 cm there is fat layer exposure with bone exposed. No tunneling. Undermining starting at 12:00 and ended at 12:00 with Methergine distance of 4 cm. Large amount of serous and was drainage. The margin is well-defined and not attached to the wound base. Large amount of granulation seen within the wound bed. Small amount of slough noted. Left medial plantar foot is a stage III pressure ulcer measuring 0.7 x 0.7 x 0.2 with fat layer exposure. There is no tunneling or undermining noted. No drainage present. The wound margin is well-defined and not attached to the wound bed. There is large amount of granulation tissue within the wound bed. Small amount of slough. all other Skin color, texture, tugor normal, no rashes or lesions. Neurologic: Alert oriented x3 Results CBC & Chem 7: 02/19/20 04:05 02/19/20 04:05 Labs: Abnormal Lab Results - Last 24 Hours (Table) 02/18/20 02/18/20 02/19/20 Range/Units 06:25 23:46 04:05 WBC (3.8-10.6) k/uL RBC (3.80-5.40) m/uL Hgb (11.4-16.0) gm/dL Hct (34.0-46.0) % MCH (25.0-35.0) pg MCHC (31.0-37.0) g/dL RDW (11.5-15.5) % Neutrophils # (1.3-7.7) k/uL Lymphocytes # (1.0-4.8) k/uL Sodium 134 L (137-145) mmol/L Chloride 114 H (98-107) mmol/L Carbon Dioxide 19 L (22-30) mmol/L BUN 19 H (7-17) mg/dL POC Glucose (mg/dL) 110 H (75-99) mg/dL Calcium 7.5 L (8.4-10.2) mg/dL TSH (0.465-4.680) mIU/L Crossmatch See Detail 02/19/20 02/19/20 Range/Units 04:05 04:05 WBC 14.9 H (3.8-10.6) k/uL RBC 3.42 L (3.80-5.40) m/uL Hgb 8.3 L (11.4-16.0) gm/dL Hct 28.5 L (34.0-46.0) % MCH 24.2 L (25.0-35.0) pg MCHC 29.1 L (31.0-37.0) g/dL RDW 18.1 H (11.5-15.5) % Neutrophils # 13.4 H (1.3-7.7) k/uL Lymphocytes # 0.5 L (1.0-4.8) k/uL Sodium (137-145) mmol/L Chloride (98-107) mmol/L Carbon Dioxide (22-30) mmol/L BUN (7-17) mg/dL POC Glucose (mg/dL) (75-99) mg/dL Calcium (8.4-10.2) mg/dL TSH 13.300 H (0.465-4.680) mIU/L Crossmatch Microbiology - Last 24 Hours (Table) 02/17/20 21:20 Blood Culture - Preliminary Blood No Growth after 24 hours 02/17/20 13:18 Blood Culture Gram Stain - Preliminary Blood Blood Culture - Preliminary Group D Enterococcus 02/17/20 13:42 Gram Stain - Preliminary Leg - Left Wound Culture - Preliminary Pseudomonas spec Assessment and Plan (1) Pressure ulcer of right buttock, stage 3 Current Visit: Yes Status: Acute Code(s): L89.313 - PRESSURE ULCER OF RIGHT BUTTOCK, STAGE 3 SNOMED Code(s): 317132626 (2) Pressure ulcer of left heel, stage 3 Current Visit: Yes Status: Acute Code(s): L89.623 - PRESSURE ULCER OF LEFT HEEL, STAGE 3 SNOMED Code(s): 608820876 (3) 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 With continuous suction. Change Wednesday. All other ulcerations apply Santyl, feeling was gauze, dry gauze, and rolled gauze as appropriate and paper tape to secure. Change daily. Patient will continue with her wound appointment either at the wound clinic or with Dr. Medina at [facility]. Thank you, for the consultation DNP note has been reviewed and discussed with Dr. Adame and the impression and plan of care has been directed as dictated.
[2020-02-19] MEDS: HYDROcodone/APAP 10-325MG 1 EACH TAB PO PRN (15:43)
[2020-02-19] MEDS: SUCRALFATE 1 GM TAB PO SCH (17:16)
--- NOTE | 2020-02-19 18:51 | PN ---
PROGRESS NOTE DATE OF SERVICE: 02/19/2020 REASON FOR FOLLOWUP: Bilateral lower extremity wounds with cellulitis and sacral pressure ulcer. INTERVAL HISTORY: The patient is currently afebrile. The patient is hemodynamically more stable, and pressor requirement has come down. The patient denies having any chest pain or shortness of breath or cough. No abdominal pain or any worsening pain to the leg wound areas. PHYSICAL EXAMINATION: Blood pressure 126/56, pulse of 102, temperature 99. She is 98% on room air. General description is an elderly female lying in bed in no distress. RESPIRATORY SYSTEM: Unlabored breathing. Clear to auscultation anteriorly. HEART: S1, S2. Regular rate and rhythm. ABDOMEN: Soft. No tenderness. Leg wounds are currently dressed up. LABS: Hemoglobin 8.3, white count 14.9, BUN of 19, creatinine 0.81. DIAGNOSTIC IMPRESSION AND PLAN: 1. Patient with sepsis. Source is left lower extremity infected wound with secondary cellulitis and Enterococcus bacteremia with possible vancomycin-resistant Enterococcus. Wound culture showing Pseudomonas. The patient is covered with meropenem and daptomycin; to continue. Local wound care with Santyl followed by moist dressing to be changed daily. 2. Sacral pressure ulcer. Local wound care with wound V.A.C. This has been discussed in detail with the RN. MMSOLOMONL / IJN: [id number] /
[2020-02-19] MEDS: HYDROmorphone 0.5 MG/0.5 ML SYRINGE IVP PRN (19:28)
[2020-02-19] MEDS: PREGABALIN 100 MG CAP PO SCH (19:42)
[2020-02-20] MEDS: HYDROmorphone 0.5 MG/0.5 ML SYRINGE IVP PRN ×5 (00:23→17:48)
[2020-02-20 04:29] LABS: Anisocytosis Slight; Basophils % (A) 0 %; Eosinophils # (A) 0.3 k/uL (0-0.7); Eosinophils % (A) 3 %; HCT 26.9 % (34.0-46.0); HGB 7.8 gm/dL (11.4-16.0); Hypochromasia Marked; Lymphocytes # (A) 0.6 k/uL (1.0-4.8); Lymphocytes % (A) 6 %; MCH 24.5 pg (25.0-35.0); MCV 84.5 fL (80.0-100.0); Mean Platelet Volume 7.8; Monocytes # (A) 0.4 k/uL (0-1.0); Monocytes % (A) 4 %; Neutrophils # (A) 9.8 k/uL (1.3-7.7); Neutrophils % (A) 87 %; Platelet Count 293 k/uL (150-450); Poikilocytosis Slight; RBC 3.18 m/uL (3.80-5.40); RDW 18.4 % (11.5-15.5); WBC 11.3 k/uL (3.8-10.6)
[2020-02-20 05:00] LABS: African American GFR (CKD) >90 (>60 ml/min/1.73 sqM); Anion Gap 1 mmol/L; Blood Urea Nitrogen 19 mg/dL (7-17); Calcium 7.4 mg/dL (8.4-10.2); Carbon Dioxide 20 mmol/L (22-30); Chloride 111 mmol/L (98-107); Glucose 106 mg/dL (74-99); Non-African American GFR(CKD) 81 (>60 ml/min/1.73 sqM); Sodium 132 mmol/L (137-145)
[2020-02-20] MEDS: SUCRALFATE 1 GM TAB PO SCH ×3 (06:27→17:49)
[2020-02-20] MEDS: LEVOTHYROXINE 75 MCG TAB PO SCH (06:27)
--- NOTE | 2020-02-20 07:14 | PN ---
PROGRESS NOTE PULMONARY/CRITICAL CARE PROGRESS NOTE: DATE OF SERVICE: February 20, 2020 This is a patient who was admitted back on February 16. She was admitted with a diagnosis of sepsis and infected and nonhealing wound on her bilateral lower extremities. Anyway, the patient seems to be doing much better. She is not receiving any supplemental oxygen. She is on saline at 130 mL an hour. She is off of pressors. The patient currently is receiving both daptomycin and meropenem as antibiotic coverage. She is being followed by Infectious Diseases. In addition, she has a history of group D Enterococcus bacteremia, acute on chronic anemia, rheumatoid arthritis, DVT, hypothyroidism, peripheral neuropathy, and a chronic indwelling catheter. Currently, she is awake and alert. She is not having any major complaints. She denies any shortness of breath or difficulty breathing and she denies any pain. PHYSICAL EXAMINATION: VITAL SIGNS: Current vital signs are reviewed. Temperature 98.5, heart rate 96, respiratory rate 14, blood pressure 95/60 and room air saturation 97%. GENERAL: She appears in no acute distress. Somewhat pale. HEENT: Examination is grossly unremarkable. NECK: Supple. Full range of motion. No adenopathy. Neck veins are flat. CARDIOVASCULAR: Examination reveals regular rhythm and rate. Heart rate about 90 beats per minute. Heart sounds are distant. S1, S2 normal. LUNGS: Reveal mostly clear breath sounds. No significant wheezes, rhonchi, or crackles. Breath sounds equal. ABDOMEN: Soft, but obese. Bowel sounds are heard. EXTREMITIES: Are wrapped. SKIN: Without rash. NEUROLOGIC: Examination is brief but nonfocal. LABS: Labs are reviewed. White count 11.3, hemoglobin 7.8, hematocrit 26.9, platelet count 293,000. Sodium 132, potassium 4, chloride 111, CO2 of 20. Anion gap is 1. BUN and creatinine were 19 and 0.75. C difficile studies were negative. Microbiology showing evidence of left leg wound cultures positive for Pseudomonas species and group D Enterococcus in the blood from the 16 of February. No x-ray to report. MEDICATIONS: Medications are reviewed. Her antibiotics include and continue to be daptomycin and meropenem. ASSESSMENT: 1. Severe sepsis and septic shock secondary to infected bilateral lower extremity nonhealing wounds. Left foot wound cultures being positive for Pseudomonas species. Currently on daptomycin and meropenem. 2. Chronic sacral decubitus and chronic nonhealing lower extremity ulcers. 3. Group D Enterococcus bacteremia from February 16. 4. Acute on chronic anemia, status post 1 unit of PRBC on February 17. 5. History of polymicrobial infections including Pseudomonas, Proteus, Enterococcus, and MRSA. 6. History of rheumatoid arthritis. 7. History of deep venous thrombosis. 8. History of hypothyroidism. 9. History of peripheral neuropathy. PLAN: The patient is doing better. She has had her Levophed weaned off. Yesterday she was on 3 mcg/minute. She is receiving saline at 130 mL an hour. She is not receiving any supplemental oxygen. The patient has good GI and DVT prophylaxis. Additional recommendations and suggestions are forthcoming. Prognosis is guarded. We will continue to follow. MMODL / IJN: [id number] /
[2020-02-20] MEDS ORDERED: RIVAROXABAN 20 MG TAB PO SCH (08:00)
[2020-02-20] MEDS: ENOXAPARIN 40 MG/0.4 ML SYRINGE SQ SCH (08:42)
[2020-02-20] MEDS: MEROPENEM 1 GM in SODIUM CHLORIDE 0.9% 100 ML IVPB SCH ×2 (08:42→16:16)
[2020-02-20] MEDS: PANTOPRAZOLE 40 MG/10 ML VIAL IVP SCH (08:42)
[2020-02-20] MEDS: SODIUM CHLORIDE 0.9% 1,000 ML IV SCH ×2 (08:42→16:17)
[2020-02-20] MEDS: PREGABALIN 100 MG CAP PO SCH (08:43)
[2020-02-20] MEDS: FERROUS SULFATE 325 MG TAB PO SCH (08:43)
--- NOTE | 2020-02-20 10:45 | P.PN ---
Subjective Progress Note Date: 02/20/20 This is a 69-year-old female in my patient with a previous medical history significant for rheumatoid arthritis with significant deformities, currently wheelchair bound/bedbound, nonhealing wounds for bilateral lower extremities as well as stage IV sacral decubitus ulcer for which she has been t reated with a wound VAC, she has been following with the wound healing Center at [facility] with Dr. Medina on a weekly basis and recently she had a PIC line inserted and she was started on IV antibiotic in the form of Rocephin for the next 10 days however she was told that the patient may need to go to the emergency department if she is not doing better over the next few days, patient while she was at home she was extremely lethargic and she was fatigued and tired she was feeling cold her daughter brought her to the ER at [facility] and she was found to have a worsening bilateral nonhealing wounds worse on the posterior left leg and the right heel along with a decubiti on the sacral area that was covered with a wound VAC, patient did have hypotension and leukocytosis initially and she was started on IV antibiotic in the form of vancomycin and meropenem, 1 cultures as well as blood cultures were obtained, patient initially did receive a bolus of IV fluid and blood pressure was a bit better so the emergency room physician sent the patient to telemetry unit however the patient became hypotensive on the floor blood pressure drop to 55/35 and 18 was called and patient was transferred to the intensive care unit, Dr. Metz, patient had an arterial line placed and as well as triple lumen catheter in the right subclavian vein, she was kept on norepinephrine after the IV bolus and she was started on vancomycin and meropenem she was seen in consultation by infectious disease as well. She is to be treated in intensive care unit, her prognosis very guarded and she will definitely need to go to extended care facility for better wound healing. 02/18: Patient remains in the intensive care unit. She has been afebrile since the morning of February 17, heart rate 96, blood pressure 119/50, pulse ox 95% on room air. Repeat blood work reveals WBC improved at 14.9, hemoglobin at 8.3, platelet count 383. Sodium 134, potassium 3.9, chloride 114, CO2 19, BUN 19 and creatinine 0.81. TSH 13.3 and free T4 normal at 0.96, cortisol level 21. Blood culture is group D enterococcus, all left leg wound is Pseudomonas. Repeat blood culture is in progress with no growth after 24 hours. Patient is followed by Dr. Rangel with recommendations for daptomycin and meropenem and continue local wound care with Santyl. chief minister is a sinus rhythm. Patient has been on levofed had low dose and to be weaned off. Xarelto is currently on hold. Patient complains of feeling cold and shivering. She has had diarrhea and fecal management system has been added. She does complain of soreness to the buttocks area. Wound VAC to be applied. Charles catheter is in place. Th yroid dosing increased. 02/19: Patient remains in the intensive care unit. She has been off levo fed since 5:30 last evening. She states her pain is about the same as yesterday. She remains with fecal management system was small amount of output and Charles catheter are in place. PICC line is also in place from previous admission. C. difficile toxin came back negative. Patient has been afebrile, pulse of 96, blood pressure 113/66, pulse ox 95% on room air. Patient has been seen by Wound Center team with recommendations for wound VAC to the sacral wound and also Santyl to the leg wounds. Right eye swelling is improved from yesterday. Repeat blood work reveals WBC 11.3, hemoglobin 7.8. Sodium 132, potassium 4, chloride 111, CO2 20, BUN 19 and creatinine 0.75. Objective - Vital Signs Vital signs: Vital Signs Temp 98.5 F 02/20/20 04:00 Pulse 76 02/20/20 07:00 Resp 18 02/20/20 07:00 BP 98/50 02/20/20 01:00 Pulse Ox 95 02/20/20 07:00 Intake & Output 02/19/20 02/20/20 02/20/20 18:59 06:59 18:59 Intake Total 6193.150 1920 130 Output Total 845 500 35 Balance 888.324 8022 95 Weight 109.996 kg Intake: IV 1680 1560 130 DAPTOmycin 600 mg In 50 Sodium Chloride 0.9% 50 ml @ 100 mls/hr IVPB DAILY@1200 [facility] Rx#: [id number] Meropenem 1 gm In Sodium 200 Chloride 0.9% 100 ml @ 200 mls/hr IVPB Q8HR [facility] Rx#:[id number] Sodium Chloride 0.9% 1, 1430 1560 130 000 ml @ 130 mls/hr IV . Q7H42M [facility] Rx#:[id number] Intake, IV Titration 55.276 0 Amount Norepinephrine 8 mg In 55.276 0 Sodium Chloride 0.9% 250 ml @ 0.05 MCG/KG/MIN 10. 094 mls/hr IV .Q24H [facility] Rx#:[id number] Output: Urine 845 500 35 Other: Voiding Method Indwelling Catheter Indwelling Catheter ABP, PAP, CO, CI - Last Documented Arterial Blood Pressure 113/66 - Exam Review of Systems Constitutional: Reports anorexia, Reports chills, Reports chronic pain, Reports fatigue, Reports malaise, Reports night sweats, Reports weakness Eyes: denies blurred vision, denies bulging eye, denies decreased vision Ears: deny: decreased hearing Ears, nose, mouth and throat: Denies dysphagia, Denies neck lump, Denies sore throat Cardiovascular: Denies chest pain, Denies decreased exercise tolerance, Denies d yspnea on exertion, Denies lightheadedness, Denies rapid heart beat, Denies shortness of breath, Denies syncope Respiratory: Denies congestion, Denies cough with sputum, Denies home oxygen, Denies sleep apnea, Denies snoring, Denies wheezing Gastrointestinal: Reports loss of appetite, Denies abdominal pain, Denies BRBPR, Denies heartburn, Denies melena, Denies nausea, Denies vomiting, reports diarrhea Genitourinary: Denies dysuria Menstruation: Reports postmenopausal Musculoskeletal: Reports gait dysfunction, Reports leg numbness/tingling, Reports muscle weakness Musculoskeletal: bilateral: ankle pain, ankle stiffness, ankle swelling, foot pa in, foot stiffness, foot swelling, hand pain, hand stiffness, hand swelling, absent: elbow pain, elbow stiffness, elbow swelling, hip pain, hip stiffness, hip swelling, knee pain, knee stiffness, knee swelling, shoulder pain, shoulder stiffness, shoulder swelling, wrist pain, wrist stiffness, wrist swelling. Integumentary: Reports wounds (Left lower extremity, right heel, sacral.) Neurological: Reports gait dysfunction, Reports sensory deficit, Reports weakness, Denies confusion, Denies memory loss, Denies syncope, Denies tremors, Denies vertigo Psychiatric: Reports depression, Denies sadness/tearfulness, Denies sleep disturbances, Denies suicidal ideation Endocrine: Reports fatigue Physical examination: GEN: This is an obese 69-year-old female. She is resting in ICU bed and appears to be comfortable. HEENT: Head is atraumatic, normocephalic, pupils were equal round reactive to light and accommodation, extraocular muscle movement intact. Neck:Supple, no JVD, decreased carotid upstroke laterally. Chest: Decreased breath sounds at the bases, few rhonchi, no expiratory wheezes, no chest tenderness, no intercostal retractions. Heart: First heart sound is depressed, second heart sounds normal, tachycardic, there is systolic murmur 2/6. Left sternal border. Abdomen: Soft, nontender, nondistended, positive bowel sounds. Fecal management system in place. Charles catheter in place draining clear emily urine. Extremities: Bilateral lower extremity with significant wound nonhealing please refer to the pictures in the chart left lower extremity with significant wound right heel with significant wound sacral area with a clean wound, there is deformities in upper and lower extremities due to her rheumatoid arthritis, dorsalis pedis +1 bilaterally. Neurologic examination: Patient is awake alert and oriented 3, cranial nerves III-12 grossly intact, moves all her extremities, however she generally weak. - Labs CBC & Chem 7: 02/20/20 04:05 02/20/20 04:05 Labs: Abnormal Lab Results - Last 24 Hours (Table) 02/18/20 02/19/20 02/20/20 Range/Units 06:25 04:05 04:05 WBC 11.3 H (3.8-10.6) k/uL RBC 3.18 L (3.80-5.40) m/uL Hgb 7.8 L (11.4-16.0) gm/dL Hct 26.9 L (34.0-46.0) % MCH 24.5 L (25.0-35.0) pg MCHC 29.0 L (31.0-37.0) g/dL RDW 18.4 H (11.5-15.5) % Neutrophils # 9.8 H (1.3-7.7) k/uL Lymphocytes # 0.6 L (1.0-4.8) k/uL Sodium (137-145) mmol/L Chloride (98-107) mmol/L Carbon Dioxide (22-30) mmol/L BUN (7-17) mg/dL Glucose (74-99) mg/dL Calcium (8.4-10.2) mg/dL TSH 13.300 H (0.465-4.680) mIU/L Crossmatch See Detail 02/20/20 Range/Units 04:05 WBC (3.8-10.6) k/uL RBC (3.80-5.40) m/uL Hgb (11.4-16.0) gm/dL Hct (34.0-46.0) % MCH (25.0-35.0) pg MCHC (31.0-37.0) g/dL RDW (11.5-15.5) % Neutrophils # (1.3-7.7) k/uL Lymphocytes # (1.0-4.8) k/uL Sodium 132 L (137-145) mmol/L Chloride 111 H (98-107) mmol/L Carbon Dioxide 20 L (22-30) mmol/L BUN 19 H (7-17) mg/dL Glucose 106 H (74-99) mg/dL Calcium 7.4 L (8.4-10.2) mg/dL TSH (0.465-4.680) mIU/L Crossmatch Microbiology - Last 24 Hours (Table) 02/17/20 21:20 Blood Culture - Preliminary Blood No Growth after 48 hours Assessment and Plan Plan: Assessment and Plan 1. Bilateral nonhealing wounds in both lower extremities mostly left and right heel along with a chronic sacral decubitus. Consult with infectious disease appreciated. Patient is currently on daptomycin and Unasyn. Wound cultures were obtained in the emergency department, blood cultures were obtained as well, continue local care as per wound Center recommendations. 2. Severe sepsis with hypotension and septic shock due to infected bilateral lower extremity nonhealing wounds and bacteremia. Continue IV fluid, Levophed has been weaned off, continue IV antibiotic in the form of daptomycin and meropenem, consult with infectious disease and receivable executive. Continue current plan as for ICU care. Hold Lasix due to hypotension. 3. Leukocytosis related to an infected bilateral lower extremities wounds. Repeat her CBC in the next 24 hours. 4. Mild hyponatremia and hypokalemia, status post replacement. 5. Hypomagnesemia status post replacement. 6. Acute on chronic anemia possibly due to blood loss and chronic medical illness. Transfuse for hemoglobin less than 7. She is status post transfusion 1 unit of packed RBCs. 7. Rheumatoid arthritis with chronic pain. Continue Arava 20 mg orally once ev giovanni day fentanyl patch 12 micrograms every 72 hours, [place] 10 one every 8 hours for breakthrough pain., Lyrica 100 mg twice daily. 8. History of DVT. Xarelto 20 mg daily. 9. Hypothyroidism. Continue levothyroxine increased to 225 g daily. 10. Peripheral neuropathy. Continue patient on Lyrica 100 mg orally twice every day. 11. Chronic Charles catheter. Due to nonhealing decubitus ulcers. 12. Diarrhea. Fecal management system in place. 13. DVT prophylaxis. Continue Lovenox for now. Patient will be resumed on Xarelto at later time. 14. GI prophylaxis. We will maintain patient on Protonix 40 mg once every day. 15. Patient is full code. 16. COVID-19 infection not present. Very guarded prognosis. Discharge plan: [place] possibly by the end of the week. Social work consult. Impression and plan of care have been directed as dictated by the signing physician. Arlene Darnell nurse practitioner acting as scribe for signing physician.
--- NOTE | 2020-02-20 15:16 | PN ---
PROGRESS NOTE DATE OF SERVICE: 02/20/2020 REASON FOR FOLLOWUP: Sepsis with infected lower extremity wound and cellulitis. INTERVAL HISTORY: Patient is currently afebrile. The patient denies having any chest pain. No shortness of breath or cough. Overall pain to the left leg wound is currently controlled. No nausea, no vomiting, no diarrhea. PHYSICAL EXAMINATION: Blood pressure 124/64 with a pulse of 95, temperature 98.2, she is 98% on room air. General description is an elderly female, lying in bed in no distress. RESPIRATORY SYSTEM: Unlabored breathing, clear to auscultation anteriorly. HEART: S1, S2. Regular rate and rhythm. ABDOMEN: Soft, no tenderness. Legs are currently dressed up. No obvious drainage on the dressing. LABS: Hemoglobin 7.1, white count 11.3, BUN of 19, creatinine 0.75. DIAGNOSTIC IMPRESSION AND PLAN: Patient with mild lower extremity wound with secondary cellulitis. Local wound culture with Pseudomonas aeruginosa with VRE bacteremia. The patient is currently covered with meropenem and daptomycin because of her allergies. Local care to continue with Santyl followed by moist dressing and monitor clinical course closely. MMODL / IJN: [id number] /
[2020-02-21] MEDS: MEROPENEM 1 GM in SODIUM CHLORIDE 0.9% 100 ML IVPB SCH ×3 (00:40→16:33)
[2020-02-21] MEDS: PREGABALIN 100 MG CAP PO SCH ×3 (00:40→20:10)
[2020-02-21] MEDS: HYDROmorphone 0.5 MG/0.5 ML SYRINGE IVP PRN ×2 (05:04→20:16)
[2020-02-21 06:10] LABS: Anisocytosis Slight; HGB 7.4 gm/dL (11.4-16.0); Hypochromasia Marked; MCH 24.4 pg (25.0-35.0); MCHC 28.6 g/dL (31.0-37.0); MCV 85.4 fL (80.0-100.0); Mean Platelet Volume 8.2; Platelet Count 267 k/uL (150-450); Poikilocytosis Slight; RBC 3.04 m/uL (3.80-5.40); RDW 18.3 % (11.5-15.5)
[2020-02-21 06:19] LABS: Albumin 1.5 g/dL (3.5-5.0); Calcium 7.4 mg/dL (8.4-10.2); Potassium 4.2 mmol/L (3.5-5.1); Total Bilirubin 0.3 mg/dL (0.2-1.3); Total Protein 3.5 g/dL (6.3-8.2)
[2020-02-21] MEDS: NOREPINEPHRINE 8 MG in SODIUM CHLORIDE 0.9% 250 ML IV SCH (07:33)
[2020-02-21] MEDS: PANTOPRAZOLE 40 MG/10 ML VIAL IVP SCH (09:00)
[2020-02-21] MEDS: ENOXAPARIN 40 MG/0.4 ML SYRINGE SQ SCH (09:01)
[2020-02-21] MEDS: FERROUS SULFATE 325 MG TAB PO SCH (09:01)
[2020-02-21] MEDS: LEVOTHYROXINE 75 MCG TAB PO SCH (09:01)
[2020-02-21] MEDS: NYSTATIN 100,000 UNIT/ML SUSP 500,000 UNIT/5 ML CUP PO SCH ×4 (09:01→20:20)
[2020-02-21] MEDS: SUCRALFATE 1 GM TAB PO SCH ×3 (09:01→16:33)
[2020-02-21] MEDS: COLLAGENASE 250 UNIT/GM OINTMENT 30 GM TUBE TOPICAL SCH ×2 (09:02→20:09)
[2020-02-21] MEDS: SODIUM CHLORIDE 0.9% 1,000 ML IV SCH ×3 (09:02→15:39)
--- NOTE | 2020-02-21 11:14 | P.PN ---
Subjective Progress Note Date: 02/21/20 This is a 69-year-old female in my patient with a previous medical history significant for rheumatoid arthritis with significant deformities, currently wheelchair bound/bedbound, nonhealing wounds for bilateral lower extremities as well as stage IV sacral decubitus ulcer for which she has been t reated with a wound VAC, she has been following with the wound healing Center at [facility] with Dr. Medina on a weekly basis and recently she had a PIC line inserted and she was started on IV antibiotic in the form of Rocephin for the next 10 days however she was told that the patient may need to go to the emergency department if she is not doing better over the next few days, patient while she was at home she was extremely lethargic and she was fatigued and tired she was feeling cold her daughter brought her to the ER at [facility] and she was found to have a worsening bilateral nonhealing wounds worse on the posterior left leg and the right heel along with a decubiti on the sacral area that was covered with a wound VAC, patient did have hypotension and leukocytosis initially and she was started on IV antibiotic in the form of vancomycin and meropenem, 1 cultures as well as blood cultures were obtained, patient initially did receive a bolus of IV fluid and blood pressure was a bit better so the emergency room physician sent the patient to telemetry unit however the patient became hypotensive on the floor blood pressure drop to 55/35 and 18 was called and patient was transferred to the intensive care unit, Dr. Metz, patient had an arterial line placed and as well as triple lumen catheter in the right subclavian vein, she was kept on norepinephrine after the IV bolus and she was started on vancomycin and meropenem she was seen in consultation by infectious disease as well. She is to be treated in intensive care unit, her prognosis very guarded and she will definitely need to go to extended care facility for better wound healing. 02/18: Patient remains in the intensive care unit. She has been afebrile since the morning of February 17, heart rate 96, blood pressure 119/50, pulse ox 95% on room air. Repeat blood work reveals WBC improved at 14.9, hemoglobin at 8.3, platelet count 383. Sodium 134, potassium 3.9, chloride 114, CO2 19, BUN 19 and creatinine 0.81. TSH 13.3 and free T4 normal at 0.96, cortisol level 21. Blood culture is group D enterococcus, all left leg wound is Pseudomonas. Repeat blood culture is in progress with no growth after 24 hours. Patient is followed by Dr. Rangel with recommendations for daptomycin and meropenem and continue local wound care with Santyl. quality assurance monitor is a sinus rhythm. Patient has been on levofed had low dose and to be weaned off. Xarelto is currently on hold. Patient complains of feeling cold and shivering. She has had diarrhea and fecal management system has been added. She does complain of soreness to the buttocks area. Wound VAC to be applied. Charles catheter is in place. Th yroid dosing increased. 02/19: Patient remains in the intensive care unit. She has been off levo fed since 5:30 last evening. She states her pain is about the same as yesterday. She remains with fecal management system was small amount of output and Charles catheter are in place. PICC line is also in place from previous admission. C. difficile toxin came back negative. Patient has been afebrile, pulse of 96, blood pressure 113/66, pulse ox 95% on room air. Patient has been seen by Wound Center team with recommendations for wound VAC to the sacral wound and also Santyl to the leg wounds. Right eye swelling is improved from yesterday. Repeat blood work reveals WBC 11.3, hemoglobin 7.8. Sodium 132, potassium 4, chloride 111, CO2 20, BUN 19 and creatinine 0.75. 02/20: Patient remains in the intensive care unit and blood pressures been on the low side with systolic of 90. Patient is currently on IV fluids and 130 mL per hour with increased fluid retention in the lower extremities. IV fluids decreased to 75 mL per hour. Patient was on midodrine prior to admission will be resumed. Patient states that she slept okay. She continues to have pain secondary to take wounds. Fecal management system and Charles catheter in place. Decreased output from the fecal management system. She denies any shortness of breath. No nausea. She states her appetite is good. She is complaining of sore throat and difficulty swallowing. Nystatin added for possible early thrush. Patient is been afebrile, heart rate 101, blood pressure 101/40, pulse ox 96% on room air. Repeat blood work reveals WBC down to 9, hemoglobin 7.4, platelet count 267. Sodium 135, potassium 4.2, chloride 114, CO2 20, BUN 21 creatinine 0.77, blood sugar 84, albumin 1.5. She has a wound VAC in place to sacral wounds and dressings in place to the bilateral lower extremity wounds. Objective - Vital Signs Vital signs: Vital Signs Temp 98 F 02/21/20 04:00 Pulse 101 H 02/21/20 07:00 Resp 15 02/21/20 07:00 BP 98/50 02/20/20 01:00 Pulse Ox 96 02/21/20 04:00 Intake & Output 02/20/20 02/21/20 02/21/20 18:59 06:59 18:59 Intake Total 1710 1660 130 Output Total 460 570 60 Balance 1250 1090 70 Weight 114.2 kg Intake: IV 1710 1660 130 DAPTOmycin 600 mg In 50 Sodium Chloride 0.9% 50 ml @ 100 mls/hr IVPB DAILY@1200 [facility] Rx#: [id number] Meropenem 1 gm In Sodium 100 100 Chloride 0.9% 100 ml @ 200 mls/hr IVPB Q8HR [facility] Rx#:[id number] Sodium Chloride 0.9% 1, 1560 1560 130 000 ml @ 130 mls/hr IV . [id number] [facility] Rx#:[id number] Output: Urine 460 570 60 Other: Voiding Method Indwelling Catheter Indwelling Catheter ABP, PAP, CO, CI - Last Documented Arterial Blood Pressure 101/40 - Exam Review of Systems Constitutional: Denies anorexia, Reports chills, Reports chronic pain, Reports fatigue, Reports malaise, Reports night sweats, Reports weakness Eyes: denies blurred vision, denies bulging eye, denies decreased vision Ears: deny: decreased hearing Ears, nose, mouth and throat: Denies dysphagia, Denies neck lump, Denies sore throat Cardiovascular: Denies chest pain, Denies decreased exercise tolerance, Denies dyspnea on exertion, Denies lightheadedness, Denies rapid heart beat, Denies shortness of breath, Denies syncope Respiratory: Denies congestion, Denies cough with sputum, Denies home oxygen, Denies sleep apnea, Denies snoring, Denies wheezing Gastrointestinal: Denies loss of appetite, Denies abdominal pain, Denies BRBPR, Denies heartburn, Denies melena, Denies nausea, Denies vomiting, reports diarrhea Genitourinary: Denies dysuria Menstruation: Reports postmenopausal Musculoskeletal: Reports gait dysfunction, Reports leg numbness/tingling, Reports muscle weakness Musculoskeletal: bilateral: ankle pain, ankle stiffness, ankle swelling, foot pain, foot stiffness, foot swelling, hand pain, hand stiffness, hand swelling, absent: elbow pain, elbow stiffness, elbow swelling, hip pain, hip stiffness, hip swelling, knee pain, knee stiffness, knee swelling, shoulder pain, shoulder stiffness, shoulder swelling, wrist pain, wrist stiffness, wrist swelling. Integumentary: Reports wounds (Left lower extremity, right heel, sacral.) Neurological: Reports gait dysfunction, Reports sensory deficit, Reports weakness, Denies confusion, Denies memory loss, Denies syncope, Denies tremors, Denies vertigo Psychiatric: Reports depression, Denies sadness/tearfulness, Denies sleep disturbances, Denies suicidal ideation Endocrine: Reports fatigue Physical examination: GEN: This is an obese 69-year-old female. She is resting in ICU bed and appears to be comfortable. HEENT: Head is atraumatic, normocephalic, pupils were equal round reactive to light and accommodation, extraocular muscle movement intact. Neck:Supple, no JVD, decreased carotid upstroke laterally. Chest: Decreased breath sounds at the bases, few rhonchi, no expiratory wheezes, no chest tenderness, no intercostal retractions. Heart: First heart sound is depressed, second heart sounds normal, tachycardic, there is systolic murmur 2/6. Left sternal border. Abdomen: Soft, nontender, nondistended, positive bowel sounds. Fecal management system in place. Charles catheter in place draining clear emily urine. Extremities: Bilateral lower extremity with significant wound nonhealing please refer to the pictures in the chart left lower extremity with significant wound right heel with significant wound sacral area with a clean wound, there is deformities in upper and lower extremities due to her rheumatoid arthritis, dorsalis pedis +1 bilaterally. Neurologic examination: Patient is awake alert and oriented 3, cranial nerves III-12 grossly intact, moves all her extremities, however she generally weak. - Labs CBC & Chem 7: 02/21/20 05:45 02/21/20 05:45 Labs: Abnormal Lab Results - Last 24 Hours (Table) 02/21/20 02/21/20 Range/Units 05:45 05:45 RBC 3.04 L (3.80-5.40) m/uL Hgb 7.4 L (11.4-16.0) gm/dL Hct 26.0 L (34.0-46.0) % MCH 24.4 L (25.0-35.0) pg MCHC 28.6 L (31.0-37.0) g/dL RDW 18.3 H (11.5-15.5) % Sodium 135 L (137-145) mmol/L Chloride 114 H (98-107) mmol/L Carbon Dioxide 20 L (22-30) mmol/L BUN 21 H (7-17) mg/dL Calcium 7.4 L (8.4-10.2) mg/dL Total Protein 3.5 L (6.3-8.2) g/dL Albumin 1.5 L (3.5-5.0) g/dL Microbiology - Last 24 Hours (Table) 02/17/20 21:20 Blood Culture - Preliminary Blood No Growth after 72 hours 02/17/20 13:18 Blood Culture Gram Stain - Final Blood Blood Culture - Final Enterococcus faecium VRE 02/17/20 13:42 Gram Stain - Final Leg - Left Wound Culture - Final Pseudomonas aeruginosa Assessment and Plan Plan: Assessment and Plan 1. Bilateral nonhealing wounds in both lower extremities mostly left and right heel along with a chronic right buttocks/ischium pressure ulcer stage III, poa, history of stage IV. Consult with infectious disease appreciated. Patient is currently on daptomycin and Unasyn. Wound cultures were obtained, continue local care as per wound Center recommendations. Wound VAC to the right buttocks pressure ulcer. All other ulcerations, Santyl. 2. Severe sepsis with hypotension and septic shock due to infected bilateral lower extremity nonhealing wounds and bacteremia. Continue IV fluid, Levophed has been weaned off, continue IV antibiotic in the form of daptomycin and meropenem, consult with infectious disease and tire mold tester. Hold Lasix due to hypotension. Decrease IV fluids to 75 mL per hour. Admitted during 10 mg 3 times daily. 3. Leukocytosis related to an infected bilateral lower extremities wounds. Repeat her CBC. 4. Mild hyponatremia and hypokalemia, status post replacement. 5. Hypomagnesemia status post replacement. 6. Acute on chronic anemia possibly due to blood loss and chronic medical illness. Transfuse for hemoglobin less than 7. She is status post transfusion 1 unit of packed RBCs. 7. Rheumatoid arthritis with chronic pain. Hold Arava 20 mg orally once every day , continue fentanyl patch 12 micrograms every 72 hours, [place] 10 one every 8 hours for breakthrough pain., Lyrica 100 mg twice daily. 8. History of DVT. Xarelto 20 mg daily on hold while on Lovenox. 9. Hypothyroidism. Continue levothyroxine increased to 225 g daily. 10. Peripheral neuropathy. Continue patient on Lyrica 100 mg orally twice every day. 11. Chronic Charles catheter. Due to nonhealing decubitus ulcers. 12. Diarrhea. Fecal management system in place. 13. DVT prophylaxis. Continue Lovenox for now. Patient will be resumed on X arelto at later time. 14. GI prophylaxis. We will maintain patient on Protonix 40 mg once every day. 15. Patient is full code. 16. COVID-19 infection not present. Very guarded prognosis. Discharge plan: [place] possibly by the end of the week. Social work consult. Impression and plan of care have been directed as dictated by the signing physician. Arlene Darnell nurse practitioner acting as scribe for signing physician.
[2020-02-21] MEDS: MIDODRINE 5 MG TAB PO SCH ×2 (11:25→16:33)
[2020-02-21 11:26] VITALS: BMI 37.1
--- NOTE | 2020-02-21 11:50 | PN ---
PROGRESS NOTE PULMONARY/CRITICAL CARE PROGRESS NOTE: DATE OF SERVICE: 02/21/2020 This is a 69-year-old female who was admitted back on February 16. She was admitted with a diagnosis of sepsis and infected and nonhealing wounds on her bilateral lower extremities as well as her Botox. The patient is doing better. She is not receiving any supplemental oxygen. She is on saline at 75 mL an hour. She has vancomycin- resistant enterococci in her blood, Pseudomonas from her wounds. She is on meropenem and daptomycin. The patient is stable to transfer to the general medical floor without telemetry. She is being followed by Infectious Diseases. Today, she has no particular complaints. She has of a wound VAC on one of her wounds. In addition to the above, she has a history of chronic anemia, rheumatoid arthritis, DVT, hypothyroidism, peripheral neuropathy, and chronic indwelling catheter. Current vital signs are stable. Temperature is 98 degrees, heart rate is 90, respiratory rate 24, blood pressure 102/46, and saturations are 93% on room air. Appears in no acute distress. HEENT: Examination is grossly unremarkable. NECK: Supple, full range of motion. No adenopathy, thyromegaly or neck vein distention. CARDIOVASCULAR: Examination reveals regular rhythm and rate. Heart sounds are distant. Heart rate about 80. LUNGS: Reveal mostly clear breath sounds. No wheezes or rhonchi. ABDOMEN: Soft, bowel sounds are heard. No masses or tenderness. EXTREMITIES" Wrapped. Some slight edema is noted. SKIN: Without rash. NEUROLOGIC: Examination is brief but nonfocal. LABS: Reviewed. White count 9, hemoglobin 7.4, hematocrit 26, platelet count 267,000. Sodium 135, potassium 4.2, chloride is 114, CO2 is 20, anion gap is 1. BUN and creatinine were 21 and 0.77. No recent chest x-ray to report. Microbiology is noted as before. Medications are reviewed. ASSESSMENT: 1. Severe sepsis and septic shock secondary to infected bilateral lower extremity nonhealing wounds. Left foot wound cultures being positive for Pseudomonas. Currently on daptomycin and meropenem. 2. Chronic sacral decubitus and chronic nonhealing lower extremity ulcers. 3. Group D Enterococcus bacteremia, February 16. 4. Acute on chronic anemia, status post 1 unit of PRBCs on February 17. 5. History of polymicrobial infections including Pseudomonas, Proteus, Enterococcus, and MRSA. 6. History of rheumatoid arthritis. 7. History of deep venous thrombosis. 8. History of hypothyroidism. 9. History of peripheral neuropathy. PLAN: Currently, the patient is being maintained on meropenem and daptomycin. She is on room air. Her saline IV is running at 75 mL an hour. Respiratory status is stable. Her pulmonary status is stable. The patient could be transferred to general medical floor without telemetry. Currently, no beds are available. Will continue to follow. MMODL / IJN: [id number] /
[2020-02-21] MEDS: HYDROcodone/APAP 10-325MG 1 EACH TAB PO PRN (15:40)
--- NOTE | 2020-02-21 16:10 | PN ---
PROGRESS NOTE DATE OF SERVICE: 02/21/2020 REASON FOR FOLLOWUP: Bilateral lower extremity wound with cellulitis and bacteremia. INTERVAL HISTORY: The patient is currently afebrile, patient is breathing comfortably. Patient denies having any chest pain or shortness of breath or cough. Overall pain discomfort to the leg has slightly decreased. She did have fall and with diarrhea for which the patient did have fecal management system. PHYSICAL EXAMINATION: Blood pressure 102/46, pulse of 96, temperature 98. She is 93% on room air. General description is an elderly female, lying in bed in no distress. RESPIRATORY SYSTEM: Unlabored breathing, clear to auscultation anteriorly. HEART: S1, S2. Regular rate and rhythm. ABDOMEN: Soft, nontender. LEGS: Dressed up. Minimal drainage on the dressing. LABS: Hemoglobin 7.4, white count 9.0, BUN of 21, creatinine 0.77. The blood culture repeat on 02/16 has been negative. DIAGNOSTIC IMPRESSION AND PLAN: Patient with sepsis, source is left lower extremity wound with secondary cellulitis, culture positive for Pseudomonas in this patient who does have a PENICILLIN ALLERGY. Also with VRE bacteremia. Patient is covered with meropenem and daptomycin. White count has normalized. Continue current antibiotics. Local wound care is ordered and monitor clinical course closely. MMODL / IJN: [id number] /
[2020-02-22] MEDS: MEROPENEM 1 GM in SODIUM CHLORIDE 0.9% 100 ML IVPB SCH ×3 (00:24→20:55)
[2020-02-22] MEDS: SODIUM CHLORIDE 0.9% 1,000 ML IV SCH ×2 (05:59→08:33)
[2020-02-22] MEDS: HYDROmorphone 0.5 MG/0.5 ML SYRINGE IVP PRN ×3 (06:00→17:31)
[2020-02-22] MEDS: LEVOTHYROXINE 75 MCG TAB PO SCH (06:00)
[2020-02-22 07:26] LABS: Anisocytosis Slight; Hypochromasia Marked; MCHC 27.7 g/dL (31.0-37.0); MCV 86.6 fL (80.0-100.0); Mean Platelet Volume 7.9; Platelet Count 235 k/uL (150-450); RBC 3.35 m/uL (3.80-5.40); RDW 18.4 % (11.5-15.5); WBC 10.4 k/uL (3.8-10.6)
[2020-02-22 07:31] LABS: ALT 14 U/L (4-34); AST 39 U/L (14-36); African American GFR (CKD) >90 (>60 ml/min/1.73 sqM); Albumin 1.6 g/dL (3.5-5.0); Alkaline Phosphatase 75 U/L (38-126); Anion Gap 1 mmol/L; Blood Urea Nitrogen 21 mg/dL (7-17); Calcium 7.7 mg/dL (8.4-10.2); Carbon Dioxide 18 mmol/L (22-30); Chloride 115 mmol/L (98-107); Glucose 75 mg/dL (74-99); Non-African American GFR(CKD) 87 (>60 ml/min/1.73 sqM); Sodium 134 mmol/L (137-145); Total Bilirubin 0.3 mg/dL (0.2-1.3); Total Protein 3.6 g/dL (6.3-8.2)
[2020-02-22] MEDS: PANTOPRAZOLE 40 MG TABLET PO SCH (07:53)
[2020-02-22] MEDS: SUCRALFATE 1 GM TAB PO SCH ×3 (07:53→16:40)
[2020-02-22] MEDS: MIDODRINE 5 MG TAB PO SCH ×3 (07:53→16:40)
[2020-02-22] MEDS ORDERED: SODIUM FERRIC GLUCONAT-SUCROSE 125 MG in SODIUM CHLORIDE 0.9% 100 ML IVPB ONE (08:01)
[2020-02-22] MEDS: PREGABALIN 100 MG CAP PO SCH ×2 (09:31→20:55)
[2020-02-22] MEDS: NYSTATIN 100,000 UNIT/ML SUSP 500,000 UNIT/5 ML CUP PO SCH ×4 (09:31→20:55)
[2020-02-22] MEDS: FERROUS SULFATE 325 MG TAB PO SCH (09:31)
--- NOTE | 2020-02-22 11:46 | P.PN ---
Subjective Progress Note Date: 02/22/20 This is a 69-year-old female in my patient with a previous medical history significant for rheumatoid arthritis with significant deformities, currently wheelchair bound/bedbound, nonhealing wounds for bilateral lower extremities as well as stage IV sacral decubitus ulcer for which she has been t reated with a wound VAC, she has been following with the wound healing Center at [facility] with Dr. Medina on a weekly basis and recently she had a PIC line inserted and she was started on IV antibiotic in the form of Rocephin for the next 10 days however she was told that the patient may need to go to the emergency department if she is not doing better over the next few days, patient while she was at home she was extremely lethargic and she was fatigued and tired she was feeling cold her daughter brought her to the ER at [facility] and she was found to have a worsening bilateral nonhealing wounds worse on the posterior left leg and the right heel along with a decubiti on the sacral area that was covered with a wound VAC, patient did have hypotension and leukocytosis initially and she was started on IV antibiotic in the form of vancomycin and meropenem, 1 cultures as well as blood cultures were obtained, patient initially did receive a bolus of IV fluid and blood pressure was a bit better so the emergency room physician sent the patient to telemetry unit however the patient became hypotensive on the floor blood pressure drop to 55/35 and 18 was called and patient was transferred to the intensive care unit, Dr. Metz, patient had an arterial line placed and as well as triple lumen catheter in the right subclavian vein, she was kept on norepinephrine after the IV bolus and she was started on vancomycin and meropenem she was seen in consultation by infectious disease as well. She is to be treated in intensive care unit, her prognosis very guarded and she will definitely need to go to extended care facility for better wound healing. 02/18: Patient remains in the intensive care unit. She has been afebrile since the morning of February 17, heart rate 96, blood pressure 119/50, pulse ox 95% on room air. Repeat blood work reveals WBC improved at 14.9, hemoglobin at 8.3, platelet count 383. Sodium 134, potassium 3.9, chloride 114, CO2 19, BUN 19 and creatinine 0.81. TSH 13.3 and free T4 normal at 0.96, cortisol level 21. Blood culture is group D enterococcus, all left leg wound is Pseudomonas. Repeat blood culture is in progress with no growth after 24 hours. Patient is followed by Dr. Rangel with recommendations for daptomycin and meropenem and continue local wound care with Santyl. welcome hostess is a sinus rhythm. Patient has been on levofed had low dose and to be weaned off. Xarelto is currently on hold. Patient complains of feeling cold and shivering. She has had diarrhea and fecal management system has been added. She does complain of soreness to the buttocks area. Wound VAC to be applied. Charles catheter is in place. Th yroid dosing increased. 02/19: Patient remains in the intensive care unit. She has been off levo fed since 5:30 last evening. She states her pain is about the same as yesterday. She remains with fecal management system was small amount of output and Charles catheter are in place. PICC line is also in place from previous admission. C. difficile toxin came back negative. Patient has been afebrile, pulse of 96, blood pressure 113/66, pulse ox 95% on room air. Patient has been seen by Wound Center team with recommendations for wound VAC to the sacral wound and also Santyl to the leg wounds. Right eye swelling is improved from yesterday. Repeat blood work reveals WBC 11.3, hemoglobin 7.8. Sodium 132, potassium 4, chloride 111, CO2 20, BUN 19 and creatinine 0.75. 02/20: Patient remains in the intensive care unit and blood pressures been on the low side with systolic of 90. Patient is currently on IV fluids and 130 mL per hour with increased fluid retention in the lower extremities. IV fluids decreased to 75 mL per hour. Patient was on midodrine prior to admission will be resumed. Patient states that she slept okay. She continues to have pain secondary to take wounds. Fecal management system and Charles catheter in place. Decreased output from the fecal management system. She denies any shortness of breath. No nausea. She states her appetite is good. She is complaining of sore throat and difficulty swallowing. Nystatin added for possible early thrush. Patient is been afebrile, heart rate 101, blood pressure 101/40, pulse ox 96% on room air. Repeat blood work reveals WBC down to 9, hemoglobin 7.4, platelet count 267. Sodium 135, potassium 4.2, chloride 114, CO2 20, BUN 21 creatinine 0.77, blood sugar 84, albumin 1.5. She has a wound VAC in place to sacral wounds and dressings in place to the bilateral lower extremity wounds. 02/20: Patient is seen today on the [facility] floor. She states she still has pain with any movement of her legs. She denies having any chest pain or shortness of breath. She complains of sore throat and was started on nystatin yesterday. Fecal management system remains in place with very little output. Charles catheter is in place as well. Patient has been afebrile, heart rate 88, blood pressure 107/71, pulse ox 97% on room air. Repeat blood work reveals WBC 10.4, hemoglobin 8. Sodium 134, potassium 4.0, chloride 115, CO2 18, BUN 21 creatinine 0.7. Total bilirubin 0.3, AST 39, ALT 14, alkaline phosphatase 75. Wound culture Pseudomonas. Blood culture Enterococcus faecium VRE. Patient is currently on daptomycin and meropenem. Patient does have a PICC line in place from previous IV antibiotic therapy. We will plan to resume patient on Xarelto and discontinue Lovenox. Objective - Vital Signs Vital signs: Vital Signs Temp 97.6 F 02/22/20 01:28 Pulse 88 02/22/20 01:28 Resp 14 02/22/20 00:30 BP 107/71 02/22/20 01:28 Pulse Ox 97 02/22/20 01:28 Intake & Output 02/21/20 02/22/20 02/22/20 18:59 06:59 18:59 Intake Total 1205 Output Total 644 600 Balance 561 -600 Weight 114.2 kg Intake: IV 330 Meropenem 1 gm In Sodium 200 Chloride 0.9% 100 ml @ 200 mls/hr IVPB Q8HR [facility] Rx#:[id number] Sodium Chloride 0.9% 1, 130 000 ml @ 130 mls/hr IV . [id number] [facility] Rx#:[id number] Intake, IV Titration 875 Amount DAPTOmycin 600 mg In 50 Sodium Chloride 0.9% 50 ml @ 100 mls/hr IVPB DAILY@1200 [facility] Rx#: [id number] Sodium Chloride 0.9% 1, 825 000 ml @ 75 mls/hr IV . [id number] [facility] Rx#:[id number] Output: Urine 644 600 Other: Voiding Method Indwelling Catheter Indwelling Catheter ABP, PAP, CO, CI - Last Documented Arterial Blood Pressure 102/46 - Exam Review of Systems Constitutional: Denies anorexia, Reports chills, Reports chronic pain, Reports fatigue, Reports malaise, Reports night sweats, Reports weakness Eyes: denies blurred vision, denies bulging eye, denies decreased vision Ears: deny: decreased hearing Ears, nose, mouth and throat: Denies dysphagia, Denies neck lump, Denies sore throat Cardiovascular: Denies chest pain, Denies decreased exercise tolerance, Denies dyspnea on exertion, Denies lightheadedness, Denies rapid heart beat, Denies shortness of breath, Denies syncope Respiratory: Denies congestion, Denies cough with sputum, Denies home oxygen, D enies sleep apnea, Denies snoring, Denies wheezing Gastrointestinal: Denies loss of appetite, Denies abdominal pain, Denies BRBPR, Denies heartburn, Denies melena, Denies nausea, Denies vomiting, reports diarrhea Genitourinary: Denies dysuria Menstruation: Reports postmenopausal Musculoskeletal: Reports gait dysfunction, Reports leg numbness/tingling, Reports muscle weakness Musculoskeletal: bilateral: ankle pain, ankle stiffness, ankle swelling, foot pain, foot stiffness, foot swelling, hand pain, hand stiffness, hand swelling, absent: elbow pain, elbow stiffness, elbow swelling, hip pain, hip stiffness, hip swelling, knee pain, knee stiffness, knee swelling, shoulder pain, shoulder stiffness, shoulder swelling, wrist pain, wrist stiffness, wrist swelling. Integumentary: Reports wounds (Left lower extremity, right heel, sacral.) Neurological: Reports gait dysfunction, Reports sensory deficit, Reports weakness, Denies confusion, Denies memory loss, Denies syncope, Denies tremors, Denies vertigo Psychiatric: Reports depression, Denies sadness/tearfulness, Denies sleep disturbances, Denies suicidal ideation Endocrine: Reports fatigue Physical examination: GEN: This is an obese 69-year-old female. She is resting in bed and appears to be comfortable. HEENT: Head is atraumatic, normocephalic, pupils were equal round reactive to light and accommodation, extraocular muscle movement intact. Neck:Supple, no JVD, decreased carotid upstroke laterally. Chest: Decreased breath sounds at the bases, few rhonchi, no expiratory wheezes, no chest tenderness, no intercostal retractions. Heart: First heart sound is depressed, second heart sounds normal, tachycardic, there is systolic murmur 2/6. Left sternal border. Abdomen: Soft, nontender, nondistended, positive bowel sounds. Fecal management system in place. Charles catheter in place draining clear emily urine. Extremities: Bilateral lower extremity with significant wound nonhealing please refer to the pictures in the chart left lower extremity with significant wound right heel with significant wound sacral area with a clean wound, there is deformities in upper and lower extremities due to her rheumatoid arthritis, dorsalis pedis +1 bilaterally. Wound VAC in place to ischium pressure ulcer. Dressings in place to the bilateral lower extremities not removed for evaluation today. Neurologic examination: Patient is awake alert and oriented 3, cranial nerves III-12 grossly intact, moves all her extremities, however she generally weak. - Labs CBC & Chem 7: 02/22/20 07:03 02/22/20 07:03 Labs: Abnormal Lab Results - Last 24 Hours (Table) 02/22/20 Range/Units 07:03 RBC 3.35 L (3.80-5.40) m/uL Hgb 8.0 L (11.4-16.0) gm/dL Hct 29.0 L (34.0-46.0) % MCH 24.0 L (25.0-35.0) pg MCHC 27.7 L (31.0-37.0) g/dL RDW 18.4 H (11.5-15.5) % Microbiology - Last 24 Hours (Table) 02/17/20 21:20 Blood Culture - Preliminary Blood No Growth after 96 hours Assessment and Plan Plan: Assessment and Plan 1. Bilateral nonhealing wounds in both lower extremities mostly left and right heel along with a chronic right buttock/ischium pressure ulcer stage III, poa, history of stage IV. Consult with infectious disease appreciated. Patient is currently on daptomycin and Unasyn. Wound culture positive for Pseudomonas, continue local care as per wound Center recommendations. Wound VAC to the right buttock pressure ulcer. All other ulcerations, Santyl. 2. Severe sepsis with hypotension and septic shock due to infected bilateral lower extremity nonhealing wounds and VRE bacteremia. Continue IV fluid, Levophed has been weaned off, continue IV antibiotic in the form of daptomycin and meropenem, consult with infectious disease and charge machine operator. Hold Lasix due to hypotension. Decrease IV fluids to 50 mL per hour. Midodrine 10 mg 3 times daily. 3. Leukocytosis related to an infected bilateral lower extremities wounds. Repeat her CBC. 4. Mild hyponatremia and hypokalemia, status post replacement. 5. Hypomagnesemia status post replacement. 6. Acute on chronic anemia possibly due to blood loss and chronic medical illness. Transfuse for hemoglobin less than 7. She is status post transfusion 1 unit of packed RBCs. 7. Rheumatoid arthritis with chronic pain. Hold Arava 20 mg orally once every day , continue fentanyl patch 12 micrograms every 72 hours, [place] 10 one every 8 hours for breakthrough pain., Lyrica 100 mg twice daily. 8. History of DVT. Xarelto 20 mg daily. 9. Hypothyroidism. Continue levothyroxine increased to 225 g daily. 10. Peripheral neuropathy. Continue patient on Lyrica 100 mg orally twice every day. 11. Chronic Charles catheter. Due to nonhealing decubitus ulcers. 12. Diarrhea. Fecal management system in place. 13. DVT prophylaxis. Resume Xarelto. 14. GI prophylaxis. We will maintain patient on Protonix 40 mg once every day. 15. Patient is full code. 16. COVID-19 infection not present. Discharge plan: [place] possibly by the end of the week. Social work consult. Impression and plan of care have been directed as dictated by the signing physic ian. Arlene Darnell nurse practitioner acting as scribe for signing physician.
--- NOTE | 2020-02-22 11:58 | P.PN ---
Subjective Progress Note Date: 02/22/20 Principal diagnosis: Sepsis, infected and nonhealing wounds on bilateral lower extremities, septic shock This is a 69-year-old female with history of multiple medical problems including rheumatoid arthritis. Patient has chronic cellulitis and chronic nonhealing wounds of both lower extremities. History of stage IV sacral decubitus ulcer treated with wound VAC. And has been followed at the wound healing center at [facility] by Dr. Medina. Patient had a recent placement of the PICC line for IV antibiotics, and she was on Rocephin for the last 10 days. Patient was advised to go to the ER because she was noted to be extremely lethargic and fatigued. In the ER, patient was noted to be relatively hypotensive, she had worsening bilateral nonhealing wounds on both lower extremities. And worsening decubitus ulcer./Sacral ulcer. Patient was also not ed to have leukocytosis along with hypotension. Started on antibiotics in the form of vancomycin and meropenem. She was also given fluid boluses. And she was admitted to telemetry. However the patient continued to have hypotensive episodes. And her blood pressure was as low as 55 systolic. Hence the patient was transferred to the intensive care unit. After evaluating the patient, I recommended a central line which was placed in the right subclavian, I also placed a right radial arterial line, and started the patient on norepinephrine. Kept her on antibiotics as per infectious disease on the case. Her blood culture from 02/16 is positive for group D enterococcus. Patient was also noted to have a low hemoglobin of 6.9, and I recommended a unit of blood to be transfused. Fluid boluses were given , and I have recommended monitoring CVP. On 02/19/2020 patient seen in follow-up in the intensive care unit, she is resting comfortably in bed, in no acute distress, appears to be weak, but she denies any difficulty breathing, room air pulse ox is 96%, breathing seems to be comfortable, IV 0.9 normal saline at a rate of 1:30 ML per hour, levo fed is at 3 mics per minute, she is in sinus mechanism with a controlled rate. Yesterday patient received a unit of packed red blood cells for a hemoglobin of 6.9, there is no obvious source of bleeding, and the anemia is thought to be hemodilution all in addition to chronic anemia. He does have a low-grade fever this morning with a temp of 99.4F, she's been afebrile overnight. Patient is currently on a combination of daptomycin, meropenem for antibiotic coverage, lower extremities are covered with dressings, and there is yellowish colored wound drainage, and through the Kerlix wraps. Today's labs have been reviewed with blood cell count is down to 14.9, hemoglobin is 8.3, platelet count is 383, sodium is 134, potassium 3.9, chloride is 114, CO2 is 19, BUN is 19 and creatinine 0.81. ID service is following. No altered mentation, patient is answering questions appropriately, no nausea vomiting or diarrhea, dietary service has been consulted for nutritional supplementation recommendations. On 02/22/2020 patient seen in follow-up on medical surgical floor. Since she transferred out of the intensive care unit patient has remained stable on the general medical surgical floor. She is awake and alert, appears generally weak, but no acute distress, room air pulse ox 97%, patient denies any pulmonary issues, no shortness of breath cough or congestion, she's been afebrile, hemodynamically she stable, she continues on combination of antibiotics for sepsis related to wound infection, patient has a wound VAC in place to the wound on her coccyx. Blood culture showed VRE, patient is on daptomycin and meropenem, patient has a PICC line in place for IV antibiotic infusion. Left leg wound culture showed pseudomonas aeruginosa. Follow blood culture from 02/17/2020 showed no growth. Objective - Vital Signs Vital signs: Vital Signs Temp 98.1 F 02/22/20 08:25 Pulse 78 02/22/20 08:25 Resp 18 02/22/20 08:25 BP 102/71 02/22/20 08:25 Pulse Ox 97 02/22/20 01:28 Intake & Output 02/21/20 02/22/20 02/22/20 18:59 06:59 18:59 Intake Total 1205 Output Total 644 600 Balance 561 -600 Weight 114.2 kg Intake: IV 330 Meropenem 1 gm In Sodium 200 Chloride 0.9% 100 ml @ 200 mls/hr IVPB Q8HR [facility] Rx#:[id number] Sodium Chloride 0.9% 1, 130 000 ml @ 130 mls/hr IV . Q7H42M [facility] Rx#:[id number] Intake, IV Titration 875 Amount DAPTOmycin 600 mg In 50 Sodium Chloride 0.9% 50 ml @ 100 mls/hr IVPB DAILY@1200 [facility] Rx#: [id number] Sodium Chloride 0.9% 1, 825 000 ml @ 75 mls/hr IV . [id number] [facility] Rx#:[id number] Output: Urine 644 600 Other: Voiding Method Indwelling Catheter Indwelling Catheter Indwelling Catheter ABP, PAP, CO, CI - Last Documented Arterial Blood Pressure 102/46 - Exam GENERAL EXAM: Alert, very pleasant, 69-year-old white female, on room air, with a pulse ox of 97%, appears pale, but no acute distress, answers questions appropriate, no altered mentation comfortable in no apparent distress. HEAD: Normocephalic/atraumatic. EYES: Normal reaction of pupils, equal size. Conjunctiva pink, sclera white. NOSE: Clear with pink turbinates. THROAT: No erythema or exudates. NECK: No masses, no JVD, no thyroid enlargement, no adenopathy. CHEST: No chest wall deformity. Symmetrical expansion. LUNGS: Equal air entry with no crackles, wheeze, rhonchi or dullness. CVS: Regular rate and rhythm, normal S1 and S2, no gallops, no murmurs, no rubs ABDOMEN: Soft, nontender. No hepatosplenomegaly, normal bowel sounds, no guarding or rigidity. EXTREMITIES: No clubbing, no edema, no cyanosis, 2+ pulses and upper and lower extremities. MUSCULOSKELETAL: Muscle strength and tone normal. SPINE: No scoliosis or deformity SKIN: No rashes, chronic bilateral lower extremity wounds, that are covered with dressings with yellow colored drainage coming through the dressings. Patient has a wound VAC in place to her coccyx wound, and hip wound CENTRAL NERVOUS SYSTEM: Alert and oriented -3. No focal deficits, tone is normal in all 4 extremities. PSYCHIATRIC: Alert and oriented -3. Appropriate affect. Intact judgment and insight. - Labs CBC & Chem 7: 02/22/20 07:03 02/22/20 07:03 Labs: Abnormal Lab Results - Last 24 Hours (Table) 02/22/20 02/22/20 Range/Units 07:03 07:03 RBC 3.35 L (3.80-5.40) m/uL Hgb 8.0 L (11.4-16.0) gm/dL Hct 29.0 L (34.0-46.0) % MCH 24.0 L (25.0-35.0) pg MCHC 27.7 L (31.0-37.0) g/dL RDW 18.4 H (11.5-15.5) % Sodium 134 L (137-145) mmol/L Chloride 115 H (98-107) mmol/L Carbon Dioxide 18 L (22-30) mmol/L BUN 21 H (7-17) mg/dL Calcium 7.7 L (8.4-10.2) mg/dL AST 39 H (14-36) U/L Total Protein 3.6 L (6.3-8.2) g/dL Albumin 1.6 L (3.5-5.0) g/dL Microbiology - Last 24 Hours (Table) 02/17/20 21:20 Blood Culture - Preliminary Blood No Growth after 96 hours Assessment and Plan Plan: Assessment: #1. Severe sepsis and septic shock secondary to infected bilateral lower extremities nonhealing wounds, left leg wound culture is positive for pseudomonas species, final culture is pending, currently patient is on combination of daptomycin and meropenem #2. Chronic sacral decubitus, and chronic nonhealing lower extremity ulcers #3. VRE bacteremia in the single blood culture on 02/17/2020, repeat blood culture has shown no growth at the 24 hours #4. Acute on chronic anemia, possibly hemodilution oh, with no evidence of active bleeding, status post transfusion with 1 unit of packed red blood cells on 02/18/2020 #5. History of polymicrobial infections including Pseudomonas, Proteus, enterococcus and MRSA in bilateral lower extremity ulcers #6. History of rheumatoid arthritis #7. History of DVTs maintained on the Xarelto which is currently on hold #8. History of hypothyroidism #9. Peripheral neuropathy #10. History of chronic indwelling catheter Plan: Patient continues on IV pneumatic effusion for VRE bacteremia, and pseudomonal wound infection. Hemodynamically she is stable, she is awake and alert, no altered mentation, she is generally weak, but denies any acute distress, issues overnight, no fever or chills, she denies any pulmonary complaints, she is on room air, maintaining O2 saturation above 95%. Pulmonary/critical care service will sign off and follow on as-needed basis. I performed a history & physical examination of the patient and discussed their management with my nurse practitioner, Alberta Euceda. I reviewed the nurse practitioner's note and agree with the documented findings and plan of care. Lung sounds are positive for clear breath sounds. The findings and the impression was discussed with the patient. I attest to the documentation by the nurse practitioner. Critical time greater than 30 minutes Time with Patient: Less than 30
[2020-02-22] MEDS: RIVAROXABAN 20 MG TAB PO SCH (16:39)
[2020-02-22] MEDS: HYDROcodone/APAP 10-325MG 1 EACH TAB PO PRN (16:40)
--- NOTE | 2020-02-22 17:36 | PN ---
PROGRESS NOTE DATE OF SERVICE: 02/22/2020 REASON FOR FOLLOWUP: Bilateral lower extremity wounds with sepsis. INTERVAL HISTORY: The patient is currently afebrile. The patient is breathing comfortably. The patient denies having any chest pain or shortness of breath or cough. Pain to the leg wounds currently controlled and no diarrhea. PHYSICAL EXAMINATION: Blood pressure is 100/67 with a pulse of 69, temperature 97.4. She is 98% on room air. General description is an elderly female lying in bed in no distress. RESPIRATORY SYSTEM: Unlabored breathing. Clear to auscultation anteriorly. HEART: S1, S2. Regular rate and rhythm. ABDOMEN: Soft. No tenderness. Legs are currently dressed up. No obvious drainage on the dressing. LABS: Hemoglobin 8, white count 10.4, BUN of 21, creatinine 0.70. DIAGNOSTIC IMPRESSION AND PLAN: Patient with infected left leg wound with secondary cellulitis. Culture positive for Pseudomonas in this patient who also has VRE bacteremia. Patient is covered with meropenem and daptomycin because of her allergy; to continue for at least 4 to 6 weeks, depending on clinical response. Monitor clinical course closely. MMODL / IJN: [id number] /
[2020-02-22] MEDS: COLLAGENASE 250 UNIT/GM OINTMENT 30 GM TUBE TOPICAL SCH (20:56)
--- NOTE | 2020-02-23 05:26 | NM ---
EXAMINATION TYPE: NM bone 3 phase DATE OF EXAM: 02/22/2020 COMPARISON: 07/12/2019 HISTORY: Triple phase bone scintigraphy was performed following the injection of 20.6 mCi Tc 99m MDP. Immedia te images and 4.5 hours post injection images acquired. FINDINGS: The delayed images show significant increased uptake at the left hip joint and left iliac bone. There is a significant arthritic change in the left hip joint on the sacrum and coccyx x-ray of 09/04/2019. There is abnormal increased uptake involving the medial lateral aspects of both knee joints and this is consistent with significant arthritic disease. Blood pool images show hyperemia involving the medial aspect of the left and right calf. Delayed imag es are fairly normal in this area and this is consistent with cellulitis. The delayed images show abn ormal increased uptake in the left calcaneus. IMPRESSION: Delayed abnormal increased uptake in the right calcaneus consistent with osteomyelitis. No significan t abnormal uptake in the left foot. Significant increased uptake around the left hip joint consistent with advanced osteoarthritis eviden t on x-ray exam. There is symmetric pattern of uptake in the ischium bilaterally and I do not suspect osteomyelitis.
[2020-02-23] MEDS: MEROPENEM 1 GM in SODIUM CHLORIDE 0.9% 100 ML IVPB SCH ×3 (05:37→20:47)
[2020-02-23] MEDS: LEVOTHYROXINE 75 MCG TAB PO SCH (05:37)
[2020-02-23] MEDS: SODIUM CHLORIDE 0.9% 1,000 ML IV SCH (05:43)
[2020-02-23] MEDS: MIDODRINE 5 MG TAB PO SCH ×3 (07:33→16:54)
[2020-02-23] MEDS: PANTOPRAZOLE 40 MG TABLET PO SCH (07:33)
[2020-02-23] MEDS: SUCRALFATE 1 GM TAB PO SCH ×3 (07:33→16:54)
[2020-02-23] MEDS: HYDROcodone/APAP 10-325MG 1 EACH TAB PO PRN (07:54)
[2020-02-23] MEDS: HYDROmorphone 0.5 MG/0.5 ML SYRINGE IVP PRN ×4 (07:58→21:36)
[2020-02-23 09:39] LABS: ALT 17 U/L (4-34); AST 54 U/L (14-36); African American GFR (CKD) >90 (>60 ml/min/1.73 sqM); Albumin 1.9 g/dL (3.5-5.0); Alkaline Phosphatase 97 U/L (38-126); Anion Gap 4 mmol/L; Blood Urea Nitrogen 20 mg/dL (7-17); Calcium 8.3 mg/dL (8.4-10.2); Carbon Dioxide 20 mmol/L (22-30); Chloride 114 mmol/L (98-107); Glucose 95 mg/dL (74-99); Non-African American GFR(CKD) 83 (>60 ml/min/1.73 sqM); Sodium 138 mmol/L (137-145); Total Bilirubin 0.5 mg/dL (0.2-1.3); Total Protein 4.4 g/dL (6.3-8.2)
[2020-02-23 09:40] LABS: Potassium 4.3 mmol/L (3.5-5.1)
[2020-02-23] MEDS: NYSTATIN 100,000 UNIT/ML SUSP 500,000 UNIT/5 ML CUP PO SCH ×4 (10:14→21:21)
[2020-02-23] MEDS: PREGABALIN 100 MG CAP PO SCH ×2 (10:14→20:47)
[2020-02-23] MEDS: FERROUS SULFATE 325 MG TAB PO SCH (10:14)
[2020-02-23 10:15] LABS: Anisocytosis Slight; HCT 28.6 % (34.0-46.0); HGB 7.9 gm/dL (11.4-16.0); Hypochromasia Marked; MCH 23.4 pg (25.0-35.0); MCHC 27.6 g/dL (31.0-37.0); MCV 84.8 fL (80.0-100.0); Mean Platelet Volume 9.8; Platelet Count 297 k/uL (150-450); Poikilocytosis Slight; RBC 3.37 m/uL (3.80-5.40); RDW 17.9 % (11.5-15.5); WBC 9.7 k/uL (3.8-10.6)
--- NOTE | 2020-02-23 10:32 | P.PN ---
Subjective Progress Note Date: 02/23/20 This is a 69-year-old female in my patient with a previous medical history significant for rheumatoid arthritis with significant deformities, currently wheelchair bound/bedbound, nonhealing wounds for bilateral lower extremities as well as stage IV sacral decubitus ulcer for which she has been t reated with a wound VAC, she has been following with the wound healing Center at [facility] with Dr. Medina on a weekly basis and recently she had a PIC line inserted and she was started on IV antibiotic in the form of Rocephin for the next 10 days however she was told that the patient may need to go to the emergency department if she is not doing better over the next few days, patient while she was at home she was extremely lethargic and she was fatigued and tired she was feeling cold her daughter brought her to the ER at [facility] and she was found to have a worsening bilateral nonhealing wounds worse on the posterior left leg and the right heel along with a decubiti on the sacral area that was covered with a wound VAC, patient did have hypotension and leukocytosis initially and she was started on IV antibiotic in the form of vancomycin and meropenem, 1 cultures as well as blood cultures were obtained, patient initially did receive a bolus of IV fluid and blood pressure was a bit better so the emergency room physician sent the patient to telemetry unit however the patient became hypotensive on the floor blood pressure drop to 55/35 and 18 was called and patient was transferred to the intensive care unit, Dr. Metz, patient had an arterial line placed and as well as triple lumen catheter in the right subclavian vein, she was kept on norepinephrine after the IV bolus and she was started on vancomycin and meropenem she was seen in consultation by infectious disease as well. She is to be treated in intensive care unit, her prognosis very guarded and she will definitely need to go to extended care facility for better wound healing. 02/18: Patient remains in the intensive care unit. She has been afebrile since the morning of February 17, heart rate 96, blood pressure 119/50, pulse ox 95% on room air. Repeat blood work reveals WBC improved at 14.9, hemoglobin at 8.3, platelet count 383. Sodium 134, potassium 3.9, chloride 114, CO2 19, BUN 19 and creatinine 0.81. TSH 13.3 and free T4 normal at 0.96, cortisol level 21. Blood culture is group D enterococcus, all left leg wound is Pseudomonas. Repeat blood culture is in progress with no growth after 24 hours. Patient is followed by Dr. Rangel with recommendations for daptomycin and meropenem and continue local wound care with Santyl. manager monitoring is a sinus rhythm. Patient has been on levofed had low dose and to be weaned off. Xarelto is currently on hold. Patient complains of feeling cold and shivering. She has had diarrhea and fecal management system has been added. She does complain of soreness to the buttocks area. Wound VAC to be applied. Charles catheter is in place. Th yroid dosing increased. 02/19: Patient remains in the intensive care unit. She has been off levo fed since 5:30 last evening. She states her pain is about the same as yesterday. She remains with fecal management system was small amount of output and Charles catheter are in place. PICC line is also in place from previous admission. C. difficile toxin came back negative. Patient has been afebrile, pulse of 96, blood pressure 113/66, pulse ox 95% on room air. Patient has been seen by Wound Center team with recommendations for wound VAC to the sacral wound and also Santyl to the leg wounds. Right eye swelling is improved from yesterday. Repeat blood work reveals WBC 11.3, hemoglobin 7.8. Sodium 132, potassium 4, chloride 111, CO2 20, BUN 19 and creatinine 0.75. 02/20: Patient remains in the intensive care unit and blood pressures been on the low side with systolic of 90. Patient is currently on IV fluids and 130 mL per hour with increased fluid retention in the lower extremities. IV fluids decreased to 75 mL per hour. Patient was on midodrine prior to admission will be resumed. Patient states that she slept okay. She continues to have pain secondary to take wounds. Fecal management system and Charles catheter in place. Decreased output from the fecal management system. She denies any shortness of breath. No nausea. She states her appetite is good. She is complaining of sore throat and difficulty swallowing. Nystatin added for possible early thrush. Patient is been afebrile, heart rate 101, blood pressure 101/40, pulse ox 96% on room air. Repeat blood work reveals WBC down to 9, hemoglobin 7.4, platelet count 267. Sodium 135, potassium 4.2, chloride 114, CO2 20, BUN 21 creatinine 0.77, blood sugar 84, albumin 1.5. She has a wound VAC in place to sacral wounds and dressings in place to the bilateral lower extremity wounds. 02/21: Patient is seen today on the [facility] floor. She states she still has pain with any movement of her legs. She denies having any chest pain or shortness of breath. She complains of sore throat and was started on nystatin yesterday. Fecal management system remains in place with very little output. Charles catheter is in place as well. Patient has been afebrile, heart rate 88, blood pressure 107/71, pulse ox 97% on room air. Repeat blood work reveals WBC 10.4, hemoglobin 8. Sodium 134, potassium 4.0, chloride 115, CO2 18, BUN 21 creatinine 0.7. Total bilirubin 0.3, AST 39, ALT 14, alkaline phosphatase 75. Wound culture Pseudomonas. Blood culture Enterococcus faecium VRE. Patient is currently on daptomycin and meropenem. Patient does have a PICC line in place from previous IV antibiotic therapy. We will plan to resume patient on Xarelto and discontinue Lovenox. 02/22: Patient denies having any nausea. No fever. She continues to complain of sore throat. She received 1 dose of Ferrlecit yesterday. Repeat blood work reveals WBC 9.7, hemoglobin 7.9, platelet count 297. Sodium 138, potassium 4.3, chloride 114, CO2 20, BUN 20 creatinine 0.73. She has been afebrile, heart rate 72, blood pressure 114/82, pulse ox 99% on room air. Wounds are evaluated on the lower extremities and we will add in a consult with vascular surgery to evaluate for debridement. She has minimal output from fecal management system. Chronic Charles catheter remains in place. Patient's discharge plan is to return to [facility] and she will need a repeat COVID test on Wednesday. Objective - Vital Signs Vital signs: Vital Signs Temp 97.2 F L 02/23/20 07:23 Pulse 72 02/23/20 07:23 Resp 18 02/23/20 07:23 BP 114/82 02/23/20 07:23 Pulse Ox 99 02/23/20 07:23 Intake & Output 02/22/20 02/23/20 02/23/20 18:59 06:59 18:59 Intake Total 275 Output Total 660 1200 Balance -660 923 Intake: Intake, IV Titration 275 Amount Meropenem 1 gm In Sodium 100 Chloride 0.9% 100 ml @ 200 mls/hr IVPB Q8HR [facility] Rx#:[id number] Sodium Chloride 0.9% 1, 175 000 ml @ 50 mls/hr IV . Q20H [facility] Rx#:[id number] Output: Urine 660 1200 Uretheral (Charles) 660 Other: Voiding Method Indwelling Catheter Indwelling Catheter ABP, PAP, CO, CI - Last Documented Arterial Blood Pressure 102/46 - Exam Review of Systems Constitutional: Denies anorexia, denies fever, denies chills, Reports chronic pain, Reports fatigue, Reports malaise, denies night sweats, Reports weakness Eyes: denies blurred vision, denies bulging eye, denies decreased vision Ears: deny: decreased hearing Ears, nose, mouth and throat: Denies dysphagia, Denies neck lump, Denies sore throat Cardiovascular: Denies chest pain, Denies decreased exercise tolerance, Denies dyspnea on exertion, Denies lightheadedness, Denies rapid heart beat, Denies shortness of breath, Denies syncope Respiratory: Denies congestion, Denies cough with sputum, Denies home oxygen, Denies sleep apnea, Denies snoring, Denies wheezing Gastrointestinal: Denies loss of appetite, Denies abdominal pain, Denies BRBPR, Denies heartburn, Denies melena, Denies nausea, Denies vomiting, reports diarrhea Genitourinary: Denies dysuria Menstruation: Reports postmenopausal Musculoskeletal: Reports gait dysfunction, Reports leg numbness/tingling, Reports muscle weakness Musculoskeletal: bilateral: ankle pain, ankle stiffness, ankle swelling, foot pain, foot stiffness, foot swelling, hand pain, hand stiffness, hand swelling, absent: elbow pain, elbow stiffness, elbow swelling, hip pain, hip stiffness, hip swelling, knee pain, knee stiffness, knee swelling, shoulder pain, shoulder stiffness, shoulder swelling, wrist pain, wrist stiffness, wrist swelling. Integumentary: Reports wounds (bilateral lower extremity, right heel, sacral.) Neurological: Reports gait dysfunction, Reports sensory deficit, Reports weakness, Denies confusion, Denies memory loss, Denies syncope, Denies tremors, Denies vertigo Psychiatric: Reports depression, Denies sadness/tearfulness, Denies sleep disturbances, Denies suicidal ideation Endocrine: Reports fatigue Physical examination: GEN: This is an obese 69-year-old female. She is resting in bed and appears to be comfortable. HEENT: Head is atraumatic, normocephalic, pupils were equal round reactive to light and accommodation, extraocular muscle movement intact. Neck:Supple, no JVD, decreased carotid upstroke laterally. Chest: Decreased breath sounds at the bases, few rhonchi, no expiratory wheezes, no chest tenderness, no intercostal retractions. Heart: First heart sound is depressed, second heart sounds normal, tachycardic, there is systolic murmur 2/6. Left sternal border. Abdomen: Soft, nontender, nondistended, positive bowel sounds. Fecal management system in place. Charles catheter in place draining clear emily urine. Extremities: Bilateral lower extremity with significant wound nonhealing ulcers to the bilateral pretibial areas, left calf area -please refer to the pictures in the chart left lower extremity with significant wound right heel with significant wound sacral area with a clean wound, there is deformities in upper and lower extremities due to her rheumatoid arthritis, dorsalis pedis +1 bilaterally. Wound VAC in place to ischium pressure ulcer. Dressings in place to the bilateral lower extremities not removed for evaluation today. Neurologic examination: Patient is awake alert and oriented 3, cranial nerves III-12 grossly intact, moves all her extremities, however she generally weak. - Labs CBC & Chem 7: 02/23/20 09:01 02/23/20 09:01 Labs: Microbiology - Last 24 Hours (Table) 02/17/20 21:20 Blood Culture - Preliminary Blood No Growth after 120 hours Assessment and Plan Plan: Assessment and Plan 1. Bilateral nonhealing wounds in both lower extremities mostly left and right heel along with a chronic right buttock/ischium pressure ulcer stage III, poa, history of stage IV. Consult with infectious disease appreciated. Patient is currently on daptomycin and Unasyn. Wound culture positive for Pseudomonas, continue local care as per wound Center recommendations. Wound VAC to the right buttock pressure ulcer. All other ulcerations, Santyl. Consult it is for vascular surgery for possible debridement of the lower extremity wounds. 2. Severe sepsis with hypotension and septic shock due to infected bilateral lower extremity nonhealing wounds and VRE bacteremia. Continue IV fluid, Levophed has been weaned off, continue IV antibiotic in the form of daptomycin and meropenem, consult with infectious disease and arts administrator. Hold Lasix due to hypotension. Decrease IV fluids to 50 mL per hour. Midodrine 10 mg 3 times daily. 3. Leukocytosis related to an infected bilateral lower extremities wounds. Repeat her CBC. 4. Mild hyponatremia and hypokalemia, status post replacement. 5. Hypomagnesemia status post replacement. 6. Acute on chronic anemia possibly due to blood loss and chronic medical ill ness. Transfuse for hemoglobin less than 7. She is status post transfusion 1 unit of packed RBCs. 7. Rheumatoid arthritis with chronic pain. Hold Arava 20 mg orally once every day , continue fentanyl patch 12 micrograms every 72 hours, [place] 10 one every 8 hours for breakthrough pain., Lyrica 100 mg twice daily. 8. History of DVT. Xarelto 20 mg daily. 9. Hypothyroidism. Continue levothyroxine increased to 225 g daily. 10. Peripheral neuropathy. Continue patient on Lyrica 100 mg orally twice every day. 11. Chronic Charles catheter. Due to nonhealing decubitus ulcers. 12. Diarrhea. Fecal management system in place. 13. DVT prophylaxis. Resume Xarelto. 14. GI prophylaxis. We will maintain patient on Protonix 40 mg once every day. 15. Patient is full code. 16. COVID-19 infection not present. Discharge plan: [facility] early next week. Social work consult. Impression and plan of care have been directed as dictated by the signing physi cian. Arlene Darnell nurse practitioner acting as scribe for signing physician.
[2020-02-23] MEDS: RIVAROXABAN 20 MG TAB PO SCH (16:54)
[2020-02-23] MEDS: COLLAGENASE 250 UNIT/GM OINTMENT 30 GM TUBE TOPICAL SCH (20:47)
--- NOTE | 2020-02-23 23:34 | PN ---
PROGRESS NOTE DATE OF SERVICE: 02/23/2020 REASON FOR FOLLOWUP: Bilateral lower extremity wounds cellulitis and sacral pressure ulcer and bacteremia. INTERVAL HISTORY: The patient is currently afebrile. The patient is breathing comfortably. The patient denies having any chest pain or shortness of breath or cough. No abdominal pain or diarrhea. PHYSICAL EXAMINATION: Blood pressure is 114/76, pulse of 74, temperature 97.6. She is 99% on room air. General description is an elderly female lying in bed in no distress. RESPIRATORY SYSTEM: Unlabored breathing. Clear to auscultation anteriorly. HEART: S1, S2. Regular rate and rhythm. ABDOMEN: Soft. No tenderness. Leg wounds did have significant slough tissue, especially in the right leg. Right heel does not have a wound or any cellulitis. LABS: Hemoglobin 7.9, white count 9.7, BUN of 20, creatinine 0.73. DIAGNOSTIC IMPRESSION AND PLAN: Patient with bilateral lower extremity wounds with underlying wound infection and cellulitis. Clinically doubt osteomyelitis at the right heel, where the patient does not have any wound. The patient is currently covered with meropenem and daptomycin because of the bacteremia and the culture being positive, and the patient's allergies. We will request surgical debridement of these wounds and monitor clinical course closely. MMODL / IJN: [id number] /
[2020-02-24] MEDS: SODIUM CHLORIDE 0.9% 1,000 ML IV SCH ×2 (01:44→21:19)
[2020-02-24] MEDS ORDERED: LIDOCAINE 2% GEL 30 ML TUBE TOPICAL ONE (02:00)
[2020-02-24] MEDS ORDERED: SODIUM CHLORIDE 0.9% 500 ML 250 ML IV ONE (02:36)
[2020-02-24] MEDS: MEROPENEM 1 GM in SODIUM CHLORIDE 0.9% 100 ML IVPB SCH ×3 (04:32→21:18)
[2020-02-24] MEDS ORDERED: LIDOCAINE 2% INJ 20 MG/ML (20 ML MDV) SQ ONE (06:00)
[2020-02-24] MEDS: LEVOTHYROXINE 75 MCG TAB PO SCH (06:12)
[2020-02-24 07:06] LABS: Anisocytosis Slight; HCT 26.4 % (34.0-46.0); HGB 7.6 gm/dL (11.4-16.0); Hypochromasia Marked; MCH 24.1 pg (25.0-35.0); MCHC 28.7 g/dL (31.0-37.0); MCV 84.2 fL (80.0-100.0); Mean Platelet Volume 8.8; Platelet Count 231 k/uL (150-450); Poikilocytosis Slight; RBC 3.14 m/uL (3.80-5.40); WBC 6.8 k/uL (3.8-10.6)
[2020-02-24 07:22] LABS: ALT 17 U/L (4-34); African American GFR (CKD) >90 (>60 ml/min/1.73 sqM); Albumin 1.8 g/dL (3.5-5.0); Anion Gap 0 mmol/L; Blood Urea Nitrogen 19 mg/dL (7-17); Calcium 8.1 mg/dL (8.4-10.2); Carbon Dioxide 21 mmol/L (22-30); Chloride 114 mmol/L (98-107); Glucose 75 mg/dL (74-99); Non-African American GFR(CKD) 86 (>60 ml/min/1.73 sqM); Sodium 135 mmol/L (137-145); Total Bilirubin 0.4 mg/dL (0.2-1.3); Total Protein 4.1 g/dL (6.3-8.2)
[2020-02-24 07:23] LABS: AST 37 U/L (14-36); Alkaline Phosphatase 65 U/L (38-126); Potassium 4.6 mmol/L (3.5-5.1)
[2020-02-24] MEDS: MIDODRINE 5 MG TAB PO SCH ×3 (09:14→17:14)
[2020-02-24] MEDS: SUCRALFATE 1 GM TAB PO SCH ×3 (09:14→17:14)
[2020-02-24] MEDS: HYDROmorphone 0.5 MG/0.5 ML SYRINGE IVP PRN ×3 (09:14→17:14)
[2020-02-24] MEDS: FERROUS SULFATE 325 MG TAB PO SCH (09:15)
[2020-02-24] MEDS: PANTOPRAZOLE 40 MG TABLET PO SCH (09:15)
[2020-02-24] MEDS: PREGABALIN 100 MG CAP PO SCH ×2 (09:15→21:18)
[2020-02-24] MEDS: NYSTATIN 100,000 UNIT/ML SUSP 500,000 UNIT/5 ML CUP PO SCH ×4 (09:15→21:19)
--- NOTE | 2020-02-24 11:13 | P.PN ---
Subjective Progress Note Date: 02/24/20 This is a 69-year-old female in my patient with a previous medical history significant for rheumatoid arthritis with significant deformities, currently wheelchair bound/bedbound, nonhealing wounds for bilateral lower extremities as well as stage IV sacral decubitus ulcer for which she has been t reated with a wound VAC, she has been following with the wound healing Center at [facility] with Dr. Medina on a weekly basis and recently she had a PIC line inserted and she was started on IV antibiotic in the form of Rocephin for the next 10 days however she was told that the patient may need to go to the emergency department if she is not doing better over the next few days, patient while she was at home she was extremely lethargic and she was fatigued and tired she was feeling cold her daughter brought her to the ER at [facility] and she was found to have a worsening bilateral nonhealing wounds worse on the posterior left leg and the right heel along with a decubiti on the sacral area that was covered with a wound VAC, patient did have hypotension and leukocytosis initially and she was started on IV antibiotic in the form of vancomycin and meropenem, 1 cultures as well as blood cultures were obtained, patient initially did receive a bolus of IV fluid and blood pressure was a bit better so the emergency room physician sent the patient to telemetry unit however the patient became hypotensive on the floor blood pressure drop to 55/35 and 18 was called and patient was transferred to the intensive care unit, Dr. Metz, patient had an arterial line placed and as well as triple lumen catheter in the right subclavian vein, she was kept on norepinephrine after the IV bolus and she was started on vancomycin and meropenem she was seen in consultation by infectious disease as well. She is to be treated in intensive care unit, her prognosis very guarded and she will definitely need to go to extended care facility for better wound healing. 02/18: Patient remains in the intensive care unit. She has been afebrile since the morning of February 17, heart rate 96, blood pressure 119/50, pulse ox 95% on room air. Repeat blood work reveals WBC improved at 14.9, hemoglobin at 8.3, platelet count 383. Sodium 134, potassium 3.9, chloride 114, CO2 19, BUN 19 and creatinine 0.81. TSH 13.3 and free T4 normal at 0.96, cortisol level 21. Blood culture is group D enterococcus, all left leg wound is Pseudomonas. Repeat blood culture is in progress with no growth after 24 hours. Patient is followed by Dr. Rangel with recommendations for daptomycin and meropenem and continue local wound care with Santyl. threat monitoring analyst is a sinus rhythm. Patient has been on levofed had low dose and to be weaned off. Xarelto is currently on hold. Patient complains of feeling cold and shivering. She has had diarrhea and fecal management system has been added. She does complain of soreness to the buttocks area. Wound VAC to be applied. Charles catheter is in place. Th yroid dosing increased. 02/19: Patient remains in the intensive care unit. She has been off levo fed since 5:30 last evening. She states her pain is about the same as yesterday. She remains with fecal management system was small amount of output and Charles catheter are in place. PICC line is also in place from previous admission. C. difficile toxin came back negative. Patient has been afebrile, pulse of 96, blood pressure 113/66, pulse ox 95% on room air. Patient has been seen by Wound Center team with recommendations for wound VAC to the sacral wound and also Santyl to the leg wounds. Right eye swelling is improved from yesterday. Repeat blood work reveals WBC 11.3, hemoglobin 7.8. Sodium 132, potassium 4, chloride 111, CO2 20, BUN 19 and creatinine 0.75. 02/20: Patient remains in the intensive care unit and blood pressures been on the low side with systolic of 90. Patient is currently on IV fluids and 130 mL per hour with increased fluid retention in the lower extremities. IV fluids decreased to 75 mL per hour. Patient was on midodrine prior to admission will be resumed. Patient states that she slept okay. She continues to have pain secondary to take wounds. Fecal management system and Charles catheter in place. Decreased output from the fecal management system. She denies any shortness of breath. No nausea. She states her appetite is good. She is complaining of sore throat and difficulty swallowing. Nystatin added for possible early thrush. Patient is been afebrile, heart rate 101, blood pressure 101/40, pulse ox 96% on room air. Repeat blood work reveals WBC down to 9, hemoglobin 7.4, platelet count 267. Sodium 135, potassium 4.2, chloride 114, CO2 20, BUN 21 creatinine 0.77, blood sugar 84, albumin 1.5. She has a wound VAC in place to sacral wounds and dressings in place to the bilateral lower extremity wounds. 02/21: Patient is seen today on the [facility] floor. She states she still has pain with any movement of her legs. She denies having any chest pain or shortness of breath. She complains of sore throat and was started on nystatin yesterday. Fecal management system remains in place with very little output. Charles catheter is in place as well. Patient has been afebrile, heart rate 88, blood pressure 107/71, pulse ox 97% on room air. Repeat blood work reveals WBC 10.4, hemoglobin 8. Sodium 134, potassium 4.0, chloride 115, CO2 18, BUN 21 creatinine 0.7. Total bilirubin 0.3, AST 39, ALT 14, alkaline phosphatase 75. Wound culture Pseudomonas. Blood culture Enterococcus faecium VRE. Patient is currently on daptomycin and meropenem. Patient does have a PICC line in place from previous IV antibiotic therapy. We will plan to resume patient on Xarelto and discontinue Lovenox. 02/22: Patient denies having any nausea. No fever. She continues to complain of sore throat. She received 1 dose of Ferrlecit yesterday. Repeat blood work reveals WBC 9.7, hemoglobin 7.9, platelet count 297. Sodium 138, potassium 4.3, chloride 114, CO2 20, BUN 20 creatinine 0.73. She has been afebrile, heart rate 72, blood pressure 114/82, pulse ox 99% on room air. Wounds are evaluated on the lower extremities and we will add in a consult with vascular surgery to evaluate for debridement. She has minimal output from fecal management system. Chronic Charles catheter remains in place. Patient's discharge plan is to return to [facility] and she will need a repeat COVID test on Wednesday. 02/23: Patient is laying on the bed in no apparent distress she denies any chest pain or shortness breath, she appears more pale today, she was seen in consultation by vascular surgery the plan is to go for debridement and duodenum the left lower extremity, her pain is well controlled, she is maintained and IV anabiotic, she continues to have some sore throat, for which she has been maintained on nystatin swish and swallow, patient most likely will be transferred to [facility] after the debridement in the OR. Objective - Vital Signs Vital signs: Vital Signs Temp 98.1 F 02/24/20 07:00 Pulse 54 L 02/24/20 08:00 Resp 8 L 02/24/20 07:00 BP 94/56 02/24/20 07:00 Pulse Ox 92 L 02/24/20 07:00 Intake & Output 02/23/20 02/24/20 02/24/20 18:59 06:59 18:59 Intake Total 40 Output Total 300 750 Balance -300 40 -750 Weight 114.2 kg Intake: Oral 40 Output: Urine 300 750 Uretheral (Charles) 750 Other: Voiding Method Indwelling Catheter Indwelling Catheter ABP, PAP, CO, CI - Last Documented Arterial Blood Pressure 102/46 - Exam - Exam Review of Systems Constitutional: Denies anorexia, denies fever, denies chills, Reports chronic pain, Reports fatigue, Reports malaise, denies night sweats, Reports weakness Eyes: denies blurred vision, denies bulging eye, denies decreased vision Ears: deny: decreased hearing Ears, nose, mouth and throat: Denies dysphagia, Denies neck lump, Denies sore throat Cardiovascular: Denies chest pain, Denies decreased exercise tolerance, Denies dyspnea on exertion, Denies lightheadedness, Denies rapid heart beat, Denies shortness of breath, Denies syncope Respiratory: Denies congestion, Denies cough with sputum, Denies home oxygen, Denies sleep apnea, Denies snoring, Denies wheezing Gastrointestinal: Denies loss of appetite, Denies abdominal pain, Denies BRBPR, Denies heartburn, Denies melena, Denies nausea, Denies vomiting, reports diarrhea Genitourinary: Denies dysuria Menstruation: Reports postmenopausal Musculoskeletal: Reports gait dysfunction, Reports leg numbness/tingling, Reports muscle weakness Musculoskeletal: bilateral: ankle pain, ankle stiffness, ankle swelling, foot pain, foot stiffness, foot swelling, hand pain, hand stiffness, hand swelling, absent: elbow pain, elbow stiffness, elbow swelling, hip pain, hip stiffness, hip swelling, knee pain, knee stiffness, knee swelling, shoulder pain, shoulder stiffness, shoulder swelling, wrist pain, wrist stiffness, wrist swelling. Integumentary: Reports wounds (bilateral lower extremity, right heel, sacral.) Neurological: Reports gait dysfunction, Reports sensory deficit, Reports weakness, Denies confusion, Denies memory loss, Denies syncope, Denies tremors, Denies vertigo Psychiatric: Reports depression, Denies sadness/tearfulness, Denies sleep disturbances, Denies suicidal ideation Endocrine: Reports fatigue Physical examination: GEN: This is an obese 69-year-old female. She is resting in bed and appears to be comfortable. HEENT: Head is atraumatic, normocephalic, pupils were equal round reactive to light and accommodation, extraocular muscle movement intact. Neck:Supple, no JVD, decreased carotid upstroke laterally. Chest: Decreased breath sounds at the bases, few rhonchi, no expiratory wheezes, no chest tenderness, no intercostal retractions. Heart: First heart sound is depressed, second heart sounds normal, tachycardic, there is systolic murmur 2/6. Left sternal border. Abdomen: Soft, nontender, nondistended, positive bowel sounds. Fecal management system in place. Charles catheter in place draining clear emily urine. Extremities: Bilateral lower extremity with significant wound nonhealing ulcers to the bilateral pretibial areas, left calf area -please refer to the pictures in the chart left lower extremity with significant wound right heel with significant wound sacral area with a clean wound, there is deformities in upper and lower extremities due to her rheumatoid arthritis, dorsalis pedis +1 bilaterally. Wound VAC in place to ischium pressure ulcer. Dressings in place to the bilateral lower extremities not removed for evaluation today. Neurologic examination: Patient is awake alert and oriented 3, cranial nerves III-12 grossly intact, moves all her extremities, however she generally weak. - Labs CBC & Chem 7: 02/24/20 06:42 02/24/20 06:42 Labs: Abnormal Lab Results - Last 24 Hours (Table) 02/24/20 02/24/20 Range/Units 06:42 06:42 RBC 3.14 L (3.80-5.40) m/uL Hgb 7.6 L (11.4-16.0) gm/dL Hct 26.4 L (34.0-46.0) % MCH 24.1 L (25.0-35.0) pg MCHC 28.7 L (31.0-37.0) g/dL RDW 18.0 H (11.5-15.5) % Sodium 135 L (137-145) mmol/L Chloride 114 H (98-107) mmol/L Carbon Dioxide 21 L (22-30) mmol/L BUN 19 H (7-17) mg/dL Calcium 8.1 L (8.4-10.2) mg/dL AST 37 H (14-36) U/L Total Protein 4.1 L (6.3-8.2) g/dL Albumin 1.8 L (3.5-5.0) g/dL Microbiology - Last 24 Hours (Table) 02/17/20 21:20 Blood Culture - Final Blood No Growth after 144 hours Assessment and Plan Assessment: Assessment and Plan 1. Bilateral nonhealing wounds in both lower extremities mostly left and right heel along with a chronic right buttock/ischium pressure ulcer stage III, poa, history of stage IV. Consult with infectious disease appreciated. Patient is currently on daptomycin and Unasyn. Wound culture positive for Pseudomonas, continue local care as per wound Center recommendations. Wound VAC to the right buttock pressure ulcer. All other ulcerations, Santyl. Consult it is for vascular surgery for possible debridement of the lower extremity wounds. 2. Severe sepsis with hypotension and septic shock due to infected bilateral lower extremity nonhealing wounds and VRE bacteremia. Continue IV fluid, Levophed has been weaned off, continue IV antibiotic in the form of daptomycin and meropenem, consult with infectious disease and chief substation operator. Hold Lasix due to hypotension. Decrease IV fluids to 50 mL per hour. Midodrine 10 mg 3 times daily. 3. Leukocytosis related to an infected bilateral lower extremities wounds. Repeat her CBC. 4. Mild hyponatremia and hypokalemia, status post replacement. 5. Hypomagnesemia status post replacement. 6. Acute on chronic anemia possibly due to blood loss and chronic medical illness. Transfuse for hemoglobin less than 7. She is status post transfusion 1 unit of packed RBCs. 7. Rheumatoid arthritis with chronic pain. Hold Arava 20 mg orally once every day , continue fentanyl patch 12 micrograms every 72 hours, [address]en[address] 10 one every 8 hours for breakthrough pain., Lyrica 100 mg twice daily. 8. History of DVT. Xarelto 20 mg daily. 9. Hypothyroidism. Continue levothyroxine increased to 225 g daily. 10. Peripheral neuropathy. Continue patient on Lyrica 100 mg orally twice every day. 11. Chronic Charles catheter. Due to nonhealing decubitus ulcers. 12. Diarrhea. Fecal management system in place. 13. DVT prophylaxis. Resume Xarelto. 14. GI prophylaxis. We will maintain patient on Protonix 40 mg once every day. 15. Patient is full code. 16. COVID-19 infection not present. Discharge plan: [facility] early next week. Social work consult.
[2020-02-24] MEDS ORDERED: SODIUM FERRIC GLUCONAT-SUCROSE 125 MG in SODIUM CHLORIDE 0.9% 100 ML IVPB ONE (12:00)
[2020-02-24] MEDS: RIVAROXABAN 20 MG TAB PO SCH (17:14)
--- NOTE | 2020-02-24 17:17 | PN ---
PROGRESS NOTE DATE OF SERVICE: 02/24/2020 REASON FOR FOLLOWUP: Bilateral lower extremity wound with secondary cellulitis and sacral pressure ulcer with bacteremia. INTERVAL HISTORY: Patient is currently afebrile. Patient is breathing comfortably. The patient denies having any chest pain. No shortness of breath or cough. No nausea, abdominal pain, or any worsening pain to the leg wound. PHYSICAL EXAMINATION: Blood pressure 135/68 with a pulse of 74, temperature 98.3. She is 97% on room air. General description: The patient is an elderly female lying in bed in no distress. Respiratory system: Unlabored breathing, clear to auscultation anteriorly. Heart S1, S2. Regular rate and rhythm. ABDOMEN: Soft, no tenderness. Legs are currently wrapped up. No obvious drainage on the dressing. LABS: Hemoglobin 7.1, white count 6.8., BUN of 19, creatinine 0.71. DIAGNOSTIC IMPRESSION AND PLAN: Patient with bilateral lower extremity wound with secondary cellulitis. Patient still has significant from surgical debridement. Antibiotic in the form of meropenem and daptomycin on the basis of the cultures and antibiotics and sensitivity and patient allergies. She will need midline for outpatient IV antibiotics. Continue supportive care. MMODL / IJN: [id number] /
[2020-02-24] MEDS: COLLAGENASE 250 UNIT/GM OINTMENT 30 GM TUBE TOPICAL SCH (21:23)
[2020-02-25] MEDS ORDERED: SODIUM CHLORIDE 0.9% 500 ML 250 ML IV ONE ×2 (03:17→05:47)
[2020-02-25] MEDS: HYDROcodone/APAP 10-325MG 1 EACH TAB PO PRN ×2 (04:53→12:42)
[2020-02-25] MEDS: MEROPENEM 1 GM in SODIUM CHLORIDE 0.9% 100 ML IVPB SCH ×3 (04:57→20:25)
[2020-02-25] MEDS: LEVOTHYROXINE 75 MCG TAB PO SCH (05:36)
[2020-02-25] MEDS: MIDODRINE 5 MG TAB PO SCH ×3 (06:05→16:50)
[2020-02-25 07:37] LABS: ALT 14 U/L (4-34); AST 27 U/L (14-36); African American GFR (CKD) >90 (>60 ml/min/1.73 sqM); Albumin 1.6 g/dL (3.5-5.0); Alkaline Phosphatase 74 U/L (38-126); Anion Gap 1 mmol/L; Blood Urea Nitrogen 17 mg/dL (7-17); Calcium 7.9 mg/dL (8.4-10.2); Carbon Dioxide 21 mmol/L (22-30); Chloride 113 mmol/L (98-107); Glucose 77 mg/dL (74-99); Non-African American GFR(CKD) 85 (>60 ml/min/1.73 sqM); Potassium 4.1 mmol/L (3.5-5.1); Sodium 135 mmol/L (137-145); Total Bilirubin 0.3 mg/dL (0.2-1.3); Total Protein 3.9 g/dL (6.3-8.2)
[2020-02-25 07:42] LABS: Anisocytosis Slight; Basophils % (A) 0 %; Eosinophils # (A) 0.4 k/uL (0-0.7); Eosinophils % (A) 4 %; HCT 23.7 % (34.0-46.0); Hypochromasia Marked; Lymphocytes % (A) 12 %; MCHC 28.9 g/dL (31.0-37.0); MCV 82.8 fL (80.0-100.0); Mean Platelet Volume 9.6; Microcytosis Slight; Monocytes # (A) 0.6 k/uL (0-1.0); Monocytes % (A) 7 %; Neutrophils # (A) 6.1 k/uL (1.3-7.7); Neutrophils % (A) 74 %; Platelet Count 288 k/uL (150-450); Poikilocytosis Slight; RBC 2.87 m/uL (3.80-5.40); RDW 18.4 % (11.5-15.5); WBC 8.2 k/uL (3.8-10.6)
[2020-02-25 07:45] LABS: HGB 6.9 gm/dL (11.4-16.0)
[2020-02-25] MEDS: PANTOPRAZOLE 40 MG TABLET PO SCH (07:54)
[2020-02-25] MEDS: PREGABALIN 100 MG CAP PO SCH ×2 (07:54→20:25)
[2020-02-25] MEDS: NYSTATIN 100,000 UNIT/ML SUSP 500,000 UNIT/5 ML CUP PO SCH ×4 (07:54→20:26)
[2020-02-25] MEDS: FERROUS SULFATE 325 MG TAB PO SCH (07:54)
[2020-02-25] MEDS: HYDROmorphone 0.5 MG/0.5 ML SYRINGE IVP PRN ×3 (07:54→20:32)
[2020-02-25] MEDS: SUCRALFATE 1 GM TAB PO SCH ×3 (07:54→16:50)
--- NOTE | 2020-02-25 10:21 | P.PN ---
Subjective Progress Note Date: 02/25/20 This is a 69-year-old female in my patient with a previous medical history significant for rheumatoid arthritis with significant deformities, currently wheelchair bound/bedbound, nonhealing wounds for bilateral lower extremities as well as stage IV sacral decubitus ulcer for which she has been t reated with a wound VAC, she has been following with the wound healing Center at [facility] with Dr. Medina on a weekly basis and recently she had a PIC line inserted and she was started on IV antibiotic in the form of Rocephin for the next 10 days however she was told that the patient may need to go to the emergency department if she is not doing better over the next few days, patient while she was at home she was extremely lethargic and she was fatigued and tired she was feeling cold her daughter brought her to the ER at [facility] and she was found to have a worsening bilateral nonhealing wounds worse on the posterior left leg and the right heel along with a decubiti on the sacral area that was covered with a wound VAC, patient did have hypotension and leukocytosis initially and she was started on IV antibiotic in the form of vancomycin and meropenem, 1 cultures as well as blood cultures were obtained, patient initially did receive a bolus of IV fluid and blood pressure was a bit better so the emergency room physician sent the patient to telemetry unit however the patient became hypotensive on the floor blood pressure drop to 55/35 and 18 was called and patient was transferred to the intensive care unit, Dr. Metz, patient had an arterial line placed and as well as triple lumen catheter in the right subclavian vein, she was kept on norepinephrine after the IV bolus and she was started on vancomycin and meropenem she was seen in consultation by infectious disease as well. She is to be treated in intensive care unit, her prognosis very guarded and she will definitely need to go to extended care facility for better wound healing. 02/18: Patient remains in the intensive care unit. She has been afebrile since the morning of February 17, heart rate 96, blood pressure 119/50, pulse ox 95% on room air. Repeat blood work reveals WBC improved at 14.9, hemoglobin at 8.3, platelet count 383. Sodium 134, potassium 3.9, chloride 114, CO2 19, BUN 19 and creatinine 0.81. TSH 13.3 and free T4 normal at 0.96, cortisol level 21. Blood culture is group D enterococcus, all left leg wound is Pseudomonas. Repeat blood culture is in progress with no growth after 24 hours. Patient is followed by Dr. Rangel with recommendations for daptomycin and meropenem and continue local wound care with Santyl. compliance monitor is a sinus rhythm. Patient has been on levofed had low dose and to be weaned off. Xarelto is currently on hold. Patient complains of feeling cold and shivering. She has had diarrhea and fecal management system has been added. She does complain of soreness to the buttocks area. Wound VAC to be applied. Charles catheter is in place. Th yroid dosing increased. 02/19: Patient remains in the intensive care unit. She has been off levo fed since 5:30 last evening. She states her pain is about the same as yesterday. She remains with fecal management system was small amount of output and Charles catheter are in place. PICC line is also in place from previous admission. C. difficile toxin came back negative. Patient has been afebrile, pulse of 96, blood pressure 113/66, pulse ox 95% on room air. Patient has been seen by Wound Center team with recommendations for wound VAC to the sacral wound and also Santyl to the leg wounds. Right eye swelling is improved from yesterday. Repeat blood work reveals WBC 11.3, hemoglobin 7.8. Sodium 132, potassium 4, chloride 111, CO2 20, BUN 19 and creatinine 0.75. 02/20: Patient remains in the intensive care unit and blood pressures been on the low side with systolic of 90. Patient is currently on IV fluids and 130 mL per hour with increased fluid retention in the lower extremities. IV fluids decreased to 75 mL per hour. Patient was on midodrine prior to admission will be resumed. Patient states that she slept okay. She continues to have pain secondary to take wounds. Fecal management system and Charles catheter in place. Decreased output from the fecal management system. She denies any shortness of breath. No nausea. She states her appetite is good. She is complaining of sore throat and difficulty swallowing. Nystatin added for possible early thrush. Patient is been afebrile, heart rate 101, blood pressure 101/40, pulse ox 96% on room air. Repeat blood work reveals WBC down to 9, hemoglobin 7.4, platelet count 267. Sodium 135, potassium 4.2, chloride 114, CO2 20, BUN 21 creatinine 0.77, blood sugar 84, albumin 1.5. She has a wound VAC in place to sacral wounds and dressings in place to the bilateral lower extremity wounds. 02/21: Patient is seen today on the [facility] floor. She states she still has pain with any movement of her legs. She denies having any chest pain or shortness of breath. She complains of sore throat and was started on nystatin yesterday. Fecal management system remains in place with very little output. Charles catheter is in place as well. Patient has been afebrile, heart rate 88, blood pressure 107/71, pulse ox 97% on room air. Repeat blood work reveals WBC 10.4, hemoglobin 8. Sodium 134, potassium 4.0, chloride 115, CO2 18, BUN 21 creatinine 0.7. Total bilirubin 0.3, AST 39, ALT 14, alkaline phosphatase 75. Wound culture Pseudomonas. Blood culture Enterococcus faecium VRE. Patient is currently on daptomycin and meropenem. Patient does have a PICC line in place from previous IV antibiotic therapy. We will plan to resume patient on Xarelto and discontinue Lovenox. 02/22: Patient denies having any nausea. No fever. She continues to complain of sore throat. She received 1 dose of Ferrlecit yesterday. Repeat blood work reveals WBC 9.7, hemoglobin 7.9, platelet count 297. Sodium 138, potassium 4.3, chloride 114, CO2 20, BUN 20 creatinine 0.73. She has been afebrile, heart rate 72, blood pressure 114/82, pulse ox 99% on room air. Wounds are evaluated on the lower extremities and we will add in a consult with vascular surgery to evaluate for debridement. She has minimal output from fecal management system. Chronic Charles catheter remains in place. Patient's discharge plan is to return to [facility] and she will need a repeat COVID test on Wednesday. 02/23: Patient is laying on the bed in no apparent distress she denies any chest pain or shortness breath, she appears more pale today, she was seen in consultation by vascular surgery the plan is to go for debridement and duodenum the left lower extremity, her pain is well controlled, she is maintained and IV anabiotic, she continues to have some sore throat, for which she has been maintained on nystatin swish and swallow, patient most likely will be transferred to [facility] after the debridement in the OR. 02/24: Patient is laying on the bed she appears to be a bit weaker today her hemoglobin did drop to 6.9, she will be getting 1 unit of packed cells, her wound VAC is leaking and nursing staff tried to fix that appears to be holding at this point in time, she was seen in consultation by vascular surgery and she is to be scheduled for debridement in the OR hopefully the next 24 hours. Objective - Vital Signs Vital signs: Vital Signs Temp 97.7 F 02/25/20 07:00 Pulse 92 02/25/20 07:00 Resp 17 02/25/20 07:00 BP 101/69 02/25/20 07:00 Pulse Ox 96 02/25/20 07:00 Intake & Output 02/24/20 02/25/20 02/25/20 18:59 06:59 18:59 Intake Total 530 Output Total 1200 700 Balance -670 -700 Intake: Intake, IV Titration 50 Amount DAPTOmycin 600 mg In 50 Sodium Chloride 0.9% 50 ml @ 100 mls/hr IVPB DAILY@1200 [facility] Rx#: [id number] Oral 480 Output: Urine 1200 700 Uretheral (Charles) 1200 Other: Voiding Method Indwelling Catheter Indwelling Catheter ABP, PAP, CO, CI - Last Documented Arterial Blood Pressure 102/46 - Exam - Exam Review of Systems Constitutional: Denies anorexia, denies fever, denies chills, Reports chronic pain, Reports fatigue, Reports malaise, denies night sweats, Reports weakness Eyes: denies blurred vision, denies bulging eye, denies decreased vision Ears: deny: decreased hearing Ears, nose, mouth and throat: Denies dysphagia, Denies neck lump, Denies sore throat Cardiovascular: Denies chest pain, Denies decreased exercise tolerance, Denies dyspnea on exertion, Denies lightheadedness, Denies rapid heart beat, Denies shortness of breath, Denies syncope Respiratory: Denies congestion, Denies cough with sputum, Denies home oxygen, Denies sleep apnea, Denies snoring, Denies wheezing Gastrointestinal: Denies loss of appetite, Denies abdominal pain, Denies BRBPR, Denies heartburn, Denies melena, Denies nausea, Denies vomiting, reports diarrhea Genitourinary: Denies dysuria Menstruation: Reports postmenopausal Musculoskeletal: Reports gait dysfunction, Reports leg numbness/tingling, Reports muscle weakness Musculoskeletal: bilateral: ankle pain, ankle stiffness, ankle swelling, foot pain, foot stiffness, foot swelling, hand pain, hand stiffness, hand swelling, absent: elbow pain, elbow stiffness, elbow swelling, hip pain, hip stiffness, hip swelling, knee pain, knee stiffness, knee swelling, shoulder pain, shoulder stiffness, shoulder swelling, wrist pain, wrist stiffness, wrist swelling. Integumentary: Reports wounds (bilateral lower extremity, right heel, sacral.) Neurological: Reports gait dysfunction, Reports sensory deficit, Reports weakness, Denies confusion, Denies memory loss, Denies syncope, Denies tremors, Denies vertigo Psychiatric: Reports depression, Denies sadness/tearfulness, Denies sleep disturbances, Denies suicidal ideation Endocrine: Reports fatigue Physical examination: GEN: This is an obese 69-year-old female. She is resting in bed and appears to be comfortable. HEENT: Head is atraumatic, normocephalic, pupils were equal round reactive to light and accommodation, extraocular muscle movement intact. Neck:Supple, no JVD, decreased carotid upstroke laterally. Chest: Decreased breath sounds at the bases, few rhonchi, no expiratory wheezes, no chest tenderness, no intercostal retractions. Heart: First heart sound is depressed, second heart sounds normal, tachycardic, there is systolic murmur 2/6. Left sternal border. Abdomen: Soft, nontender, nondistended, positive bowel sounds. Fecal management system in place. Charles catheter in place draining clear emily urine. Extremities: Bilateral lower extremity with significant wound nonhealing ulcers to the bilateral pretibial areas, left calf area -please refer to the pictures in the chart left lower extremity with significant wound right heel with significant wound sacral area with a clean wound, there is deformities in upper and lower extremities due to her rheumatoid arthritis, dorsalis pedis +1 bilaterally. Wound VAC in place to ischium pressure ulcer. Dressings in place to the bilateral lower extremities not removed for evaluation today. Neurologic examination: Patient is awake alert and oriented 3, cranial nerves III-12 grossly intact, moves all her extremities, however she generally weak. - Labs CBC & Chem 7: 02/25/20 06:24 02/25/20 06:24 Labs: Abnormal Lab Results - Last 24 Hours (Table) 02/25/20 02/25/20 02/25/20 Range/Units 06:24 06:24 08:29 RBC 2.87 L (3.80-5.40) m/uL Hgb 6.9 L* (11.4-16.0) gm/dL Hct 23.7 L (34.0-46.0) % MCH 24.0 L (25.0-35.0) pg MCHC 28.9 L (31.0-37.0) g/dL RDW 18.4 H (11.5-15.5) % Sodium 135 L (137-145) mmol/L Chloride 113 H (98-107) mmol/L Carbon Dioxide 21 L (22-30) mmol/L Calcium 7.9 L (8.4-10.2) mg/dL Total Protein 3.9 L (6.3-8.2) g/dL Albumin 1.6 L (3.5-5.0) g/dL Crossmatch See Detail Assessment and Plan Assessment: Assessment and Plan 1. Bilateral nonhealing wounds in both lower extremities mostly left and right heel along with a chronic right buttock/ischium pressure ulcer stage III, poa, history of stage IV. Consult with infectious disease appreciated. Patient is currently on daptomycin and Unasyn. Wound culture positive for Pseudomonas, continue local care as per wound Center recommendations. Wound VAC to the right buttock pressure ulcer. All other ulcerations, Santyl. vascular surgery for debridement of the lower extremity wounds hopefully tomorrow morning. 2. Severe sepsis with hypotension and septic shock due to infected bilateral lower extremity nonhealing wounds and VRE bacteremia. Continue IV fluid, Levo phed has been weaned off, continue IV antibiotic in the form of daptomycin and meropenem. 3. Leukocytosis related to an infected bilateral lower extremities wounds. Resolved.. 4. Mild hyponatremia and hypokalemia, status post replacement. 5. Hypomagnesemia status post replacement. 6. Acute on chronic anemia possibly due to blood loss and chronic medical illness. Rest and transfuse 1 unit of packed cells. 7. Rheumatoid arthritis with chronic pain. Hold Arava 20 mg orally once every day , continue fentanyl patch 12 micrograms every 72 hours, [place] 10 one every 8 hours for breakthrough pain., Lyrica 100 mg twice daily. 8. History of DVT. Xarelto 20 mg daily. 9. Hypothyroidism. Continue levothyroxine increased to 225 g daily. 10. Peripheral neuropathy. Continue patient on Lyrica 100 mg orally twice every day. 11. Chronic Charles catheter. Due to nonhealing decubitus ulcers. 12. Diarrhea. Resolved. 13. DVT prophylaxis. Resume Xarelto. 14. GI prophylaxis. We will maintain patient on Protonix 40 mg once every day. 15. Patient is full code. 16. COVID-19 infection not present. Discharge plan: [facility] early next week. Social work consult.
[2020-02-25] MEDS: RIVAROXABAN 20 MG TAB PO SCH (16:50)
[2020-02-25] MEDS: SODIUM CHLORIDE 0.9% 1,000 ML IV SCH (19:02)
[2020-02-25] MEDS: COLLAGENASE 250 UNIT/GM OINTMENT 30 GM TUBE TOPICAL SCH (20:25)
--- NOTE | 2020-02-26 00:27 | PN ---
PROGRESS NOTE DATE OF SERVICE: 02/25/2020 REASON FOR FOLLOWUP: Bilateral lower extremity wound cellulitis and sacral pressure ulcer and bacteremia. INTERVAL HISTORY: The patient is currently afebrile. The patient denies having any chest pain or shortness of breath or cough. No abdominal pain. However, pain and discomfort to the legs currently controlled and is waiting for debridement of the wound. PHYSICAL EXAMINATION: Blood pressure is 96/61 with pulse 69, temperature 98.2. She is 92% on room air. General description is an elderly female lying in bed in no distress. RESPIRATORY SYSTEM: Unlabored breathing, clear to auscultation anteriorly. HEART: S1, S2. Regular rate and rhythm. ABDOMEN: Soft, no tenderness. Legs are currently wrapped up. No obvious drainage on the dressing. LABS: Hemoglobin 6.9, white count 8.2, BUN of 17, creatinine 0.72. DIAGNOSTIC IMPRESSION AND PLAN: Patient with bilateral lower extremity venous stasis ulcer with cellulitis, culture positive for Pseudomonas in this patient who did have VRE bacteremia. The patient is currently on daptomycin and meropenem to continue. Waiting surgical debridement. antibiotic she will need at least 2 to 3 weeks along with local wound care as ordered. Continue supportive care. MMODL / IJN: [id number] /
[2020-02-26] MEDS: HYDROmorphone 0.5 MG/0.5 ML SYRINGE IVP PRN ×4 (00:38→21:28)
[2020-02-26] MEDS: MEROPENEM 1 GM in SODIUM CHLORIDE 0.9% 100 ML IVPB SCH ×3 (05:28→21:28)
[2020-02-26] MEDS: LEVOTHYROXINE 75 MCG TAB PO SCH (05:28)
[2020-02-26] MEDS: PANTOPRAZOLE 40 MG TABLET PO SCH (07:28)
[2020-02-26] MEDS: MIDODRINE 5 MG TAB PO SCH ×3 (07:28→17:49)
[2020-02-26] MEDS: PREGABALIN 100 MG CAP PO SCH ×2 (07:28→21:28)
[2020-02-26] MEDS: FERROUS SULFATE 325 MG TAB PO SCH (07:28)
[2020-02-26] MEDS: SUCRALFATE 1 GM TAB PO SCH ×3 (07:28→17:49)
[2020-02-26] MEDS: NYSTATIN 100,000 UNIT/ML SUSP 500,000 UNIT/5 ML CUP PO SCH ×4 (07:28→21:28)
[2020-02-26 08:33] LABS: Anisocytosis Slight; Basophils # (A) 0.1 k/uL (0-0.2); Basophils % (A) 1 %; Eosinophils # (A) 0.5 k/uL (0-0.7); Eosinophils % (A) 6 %; HCT 28.2 % (34.0-46.0); Hypochromasia Marked; Lymphocytes # (A) 1.3 k/uL (1.0-4.8); Lymphocytes % (A) 14 %; MCH 25.1 pg (25.0-35.0); MCHC 29.6 g/dL (31.0-37.0); MCV 84.7 fL (80.0-100.0); Mean Platelet Volume 10.1; Monocytes # (A) 0.6 k/uL (0-1.0); Monocytes % (A) 7 %; Neutrophils # (A) 6.3 k/uL (1.3-7.7); Neutrophils % (A) 71 %; Platelet Count 351 k/uL (150-450); Poikilocytosis Slight; RBC 3.33 m/uL (3.80-5.40); RDW 18.3 % (11.5-15.5); WBC 8.9 k/uL (3.8-10.6)
[2020-02-26 08:35] LABS: HGB 8.4 gm/dL (11.4-16.0)
[2020-02-26 10:39] LABS: Albumin 1.7 g/dL (3.5-5.0); Calcium 8.1 mg/dL (8.4-10.2); Potassium 4.1 mmol/L (3.5-5.1); Total Bilirubin 0.4 mg/dL (0.2-1.3); Total Protein 4.1 g/dL (6.3-8.2)
--- NOTE | 2020-02-26 11:57 | P.PN ---
Subjective Progress Note Date: 02/26/20 This is a 69-year-old female in my patient with a previous medical history significant for rheumatoid arthritis with significant deformities, currently wheelchair bound/bedbound, nonhealing wounds for bilateral lower extremities as well as stage IV sacral decubitus ulcer for which she has been t reated with a wound VAC, she has been following with the wound healing Center at [facility] with Dr. Mdeina on a weekly basis and recently she had a PIC line inserted and she was started on IV antibiotic in the form of Rocephin for the next 10 days however she was told that the patient may need to go to the emergency department if she is not doing better over the next few days, patient while she was at home she was extremely lethargic and she was fatigued and tired she was feeling cold her daughter brought her to the ER at [facility] and she was found to have a worsening bilateral nonhealing wounds worse on the posterior left leg and the right heel along with a decubiti on the sacral area that was covered with a wound VAC, patient did have hypotension and leukocytosis initially and she was started on IV antibiotic in the form of vancomycin and meropenem, 1 cultures as well as blood cultures were obtained, patient initially did receive a bolus of IV fluid and blood pressure was a bit better so the emergency room physician sent the patient to telemetry unit however the patient became hypotensive on the floor blood pressure drop to 55/35 and 18 was called and patient was transferred to the intensive care unit, Dr. Metz, patient had an arterial line placed and as well as triple lumen catheter in the right subclavian vein, she was kept on norepinephrine after the IV bolus and she was started on vancomycin and meropenem she was seen in consultation by infectious disease as well. She is to be treated in intensive care unit, her prognosis very guarded and she will definitely need to go to extended care facility for better wound healing. 02/18: Patient remains in the intensive care unit. She has been afebrile since the morning of February 17, heart rate 96, blood pressure 119/50, pulse ox 95% on room air. Repeat blood work reveals WBC improved at 14.9, hemoglobin at 8.3, platelet count 383. Sodium 134, potassium 3.9, chloride 114, CO2 19, BUN 19 and creatinine 0.81. TSH 13.3 and free T4 normal at 0.96, cortisol level 21. Blood culture is group D enterococcus, all left leg wound is Pseudomonas. Repeat blood culture is in progress with no growth after 24 hours. Patient is followed by Dr. Rangel with recommendations for daptomycin and meropenem and continue local wound care with Santyl. telemetry monitor is a sinus rhythm. Patient has been on levofed had low dose and to be weaned off. Xarelto is currently on hold. Patient complains of feeling cold and shivering. She has had diarrhea and fecal management system has been added. She does complain of soreness to the buttocks area. Wound VAC to be applied. Charles catheter is in place. Th yroid dosing increased. 02/19: Patient remains in the intensive care unit. She has been off levo fed since 5:30 last evening. She states her pain is about the same as yesterday. She remains with fecal management system was small amount of output and Charles catheter are in place. PICC line is also in place from previous admission. C. difficile toxin came back negative. Patient has been afebrile, pulse of 96, blood pressure 113/66, pulse ox 95% on room air. Patient has been seen by Wound Center team with recommendations for wound VAC to the sacral wound and also Santyl to the leg wounds. Right eye swelling is improved from yesterday. Repeat blood work reveals WBC 11.3, hemoglobin 7.8. Sodium 132, potassium 4, chloride 111, CO2 20, BUN 19 and creatinine 0.75. 02/20: Patient remains in the intensive care unit and blood pressures been on the low side with systolic of 90. Patient is currently on IV fluids and 130 mL per hour with increased fluid retention in the lower extremities. IV fluids decreased to 75 mL per hour. Patient was on midodrine prior to admission will be resumed. Patient states that she slept okay. She continues to have pain secondary to take wounds. Fecal management system and Charles catheter in place. Decreased output from the fecal management system. She denies any shortness of breath. No nausea. She states her appetite is good. She is complaining of sore throat and difficulty swallowing. Nystatin added for possible early thrush. Patient is been afebrile, heart rate 101, blood pressure 101/40, pulse ox 96% on room air. Repeat blood work reveals WBC down to 9, hemoglobin 7.4, platelet count 267. Sodium 135, potassium 4.2, chloride 114, CO2 20, BUN 21 creatinine 0.77, blood sugar 84, albumin 1.5. She has a wound VAC in place to sacral wounds and dressings in place to the bilateral lower extremity wounds. 02/21: Patient is seen today on the [facility] floor. She states she still has pain with any movement of her legs. She denies having any chest pain or shortness of breath. She complains of sore throat and was started on nystatin yesterday. Fecal management system remains in place with very little output. Charles catheter is in place as well. Patient has been afebrile, heart rate 88, blood pressure 107/71, pulse ox 97% on room air. Repeat blood work reveals WBC 10.4, hemoglobin 8. Sodium 134, potassium 4.0, chloride 115, CO2 18, BUN 21 creatinine 0.7. Total bilirubin 0.3, AST 39, ALT 14, alkaline phosphatase 75. Wound culture Pseudomonas. Blood culture Enterococcus faecium VRE. Patient is currently on daptomycin and meropenem. Patient does have a PICC line in place from previous IV antibiotic therapy. We will plan to resume patient on Xarelto and discontinue Lovenox. 02/22: Patient denies having any nausea. No fever. She continues to complain of sore throat. She received 1 dose of Ferrlecit yesterday. Repeat blood work reveals WBC 9.7, hemoglobin 7.9, platelet count 297. Sodium 138, potassium 4.3, chloride 114, CO2 20, BUN 20 creatinine 0.73. She has been afebrile, heart rate 72, blood pressure 114/82, pulse ox 99% on room air. Wounds are evaluated on the lower extremities and we will add in a consult with vascular surgery to evaluate for debridement. She has minimal output from fecal management system. Chronic Charles catheter remains in place. Patient's discharge plan is to return to [facility] and she will need a repeat COVID test on Wednesday. 02/23: Patient is laying on the bed in no apparent distress she denies any chest pain or shortness breath, she appears more pale today, she was seen in consultation by vascular surgery the plan is to go for debridement and duodenum the left lower extremity, her pain is well controlled, she is maintained and IV anabiotic, she continues to have some sore throat, for which she has been maintained on nystatin swish and swallow, patient most likely will be transferred to [facility] after the debridement in the OR. 02/24: Patient is laying on the bed she appears to be a bit weaker today her hemoglobin did drop to 6.9, she will be getting 1 unit of packed cells, her wound VAC is leaking and nursing staff tried to fix that appears to be holding at this point in time, she was seen in consultation by vascular surgery and she is to be scheduled for debridement in the OR hopefully the next 24 hours. 02/25: The patient is resting in bed. She denies any new complaints. Pain is fairly well-controlled today. Discussed debridement issue with Dr. Martin and Wound Center. No plan for debridement due to patient's underlying condition of pyoderma gangrenosum which can be worsened with debridement. Patient has Charles in place. Dr. talbot is planning on 2-3 weeks of IV antibiotics. Patient does have a PICC line and from previous IV antibiotic therapy. Patient has been afebrile, heart rate 99, blood pressure 105/76, pulse ox 94% on room air. Re peat blood work reveals WBC 8.9, hemoglobin 8.4. Sodium 135, potassium 4.1, chloride 111, CO2 22, BUN 18 and creatinine 0.79. Anticipate discharge back to [facility] tomorrow. Objective - Vital Signs Vital signs: Vital Signs Temp 98.7 F 02/26/20 07:00 Pulse 99 02/26/20 07:00 Resp 20 02/26/20 07:00 BP 105/76 02/26/20 07:00 Pulse Ox 94 L 02/26/20 07:00 Intake & Output 02/25/20 02/26/20 02/26/20 18:59 06:59 18:59 Intake Total 860 Output Total 1100 Balance 860 -1100 Intake: Intake, IV Titration 150 Amount DAPTOmycin 600 mg In 50 Sodium Chloride 0.9% 50 ml @ 100 mls/hr IVPB DAILY@1200 [facility] Rx#: [id number] Meropenem 1 gm In Sodium 100 Chloride 0.9% 100 ml @ 200 mls/hr IVPB Q8H [facility] Rx#:[id number] Oral 400 Blood Product 310 Rc As-1 Unit 310 [id number] Output: Urine 1100 Uretheral (Charles) 450 Other: Voiding Method Indwelling Catheter Indwelling Catheter ABP, PAP, CO, CI - Last Documented Arterial Blood Pressure 102/46 - Exam Review of Systems Constitutional: Denies anorexia, denies fever, denies chills, Reports chronic pain, Reports fatigue, Reports malaise, denies night sweats, Reports weakness Eyes: denies blurred vision, denies bulging eye, denies decreased vision Ears, nose, mouth and throat: Denies dysphagia, Denies neck lump, Denies sore throat Cardiovascular: Denies chest pain, Denies decreased exercise tolerance, Denies dyspnea on exertion, Denies lightheadedness, Denies rapid heart beat, Denies shortness of breath, Denies syncope Respiratory: Denies congestion, Denies cough with sputum, Denies home oxygen, Denies sleep apnea, Denies snoring, Denies wheezing Gastrointestinal: Denies loss of appetite, Denies abdominal pain, Denies BRBPR, Denies heartburn, Denies melena, Denies nausea, Denies vomiting, reports diarrhea Genitourinary: Denies dysuria Menstruation: Reports postmenopausal Musculoskeletal: Reports gait dysfunction, Reports leg numbness/tingling, Reports muscle weakness Musculoskeletal: bilateral: ankle pain, ankle stiffness, ankle swelling, foot pain, foot stiffness, foot swelling, hand pain, hand stiffness, hand swelling, absent: elbow pain, elbow stiffness, elbow swelling, hip pain, hip stiffness, hip swelling, knee pain, knee stiffness, knee swelling, shoulder pain, shoulder stiffness, shoulder swelling, wrist pain, wrist stiffness, wrist swelling. Integumentary: Reports wounds (bilateral lower extremity, right heel, sacral.) Neurological: Reports gait dysfunction, Reports sensory deficit, Reports weakness, Denies confusion, Denies memory loss, Denies syncope, Denies tremors, Denies vertigo Psychiatric: Reports depression, Denies sadness/tearfulness, Denies sleep disturbances, Denies suicidal ideation Endocrine: Reports fatigue Physical examination: GEN: This is an obese 69-year-old female. She is resting in bed and appears to be comfortable. HEENT: Head is atraumatic, normocephalic, pupils were equal round reactive to light and accommodation, extraocular muscle movement intact. Neck:Supple, no JVD, decreased carotid upstroke laterally. Chest: Decreased breath sounds at the bases, few rhonchi, no expiratory wheezes, no chest tenderness, no intercostal retractions. Heart: First heart sound is depressed, second heart sounds normal, tachycardic, there is systolic murmur 2/6. Left sternal border. Abdomen: Soft, nontender, nondistended, positive bowel sounds. Fecal management system in place. Charles catheter in place draining clear emily urine. Extremities: Bilateral lower extremity with significant wound nonhealing ulcers to the bilateral pretibial areas, left calf area -please refer to the pictures in the chart left lower extremity with significant wound right heel with significant wound sacral area with a clean wound, there is deformities in upper and lower extremities due to her rheumatoid arthritis, dorsalis pedis +1 bilaterally. Wound VAC in place to ischium pressure ulcer. Neurologic examination: Patient is awake alert and oriented 3, cranial nerves III-12 grossly intact, moves all her extremities, generalized weakness. - Labs CBC & Chem 7: 02/26/20 07:40 02/26/20 09:37 Labs: Abnormal Lab Results - Last 24 Hours (Table) 02/25/20 02/25/20 Range/Units 06:24 08:29 RBC 2.87 L (3.80-5.40) m/uL Hgb 6.9 L* (11.4-16.0) gm/dL Hct 23.7 L (34.0-46.0) % MCH 24.0 L (25.0-35.0) pg MCHC 28.9 L (31.0-37.0) g/dL RDW 18.4 H (11.5-15.5) % Crossmatch See Detail Assessment and Plan Plan: Assessment and Plan 1. Bilateral nonhealing venous stasis ulcers in both lower extremities mostly left and right heel along with a chronic right buttock/ischium pressure ulcer stage III, poa, history of stage IV. Consult with infectious disease apprec iated. Patient is currently on daptomycin and Unasyn. Wound culture positive for Pseudomonas, continue local care as per wound Center recommendations. Wound VAC to the right buttock pressure ulcer. All other ulcerations, Santyl. Cancel debridement. 2. Severe sepsis with hypotension and septic shock due to infected bilateral lower extremity nonhealing wounds and VRE bacteremia. Continue IV fluid, Levophed has been weaned off, continue IV antibiotic in the form of daptomycin and meropenem, consult with infectious disease and photo mask processor. Hold Lasix due to hypotension. Discontinue IV fluids, continue Midodrine 10 mg 3 times daily. 3. Leukocytosis related to an infected bilateral lower extremities wounds. 4. Mild hyponatremia and hypokalemia, status post replacement. 5. Hypomagnesemia status post replacement. 6. Acute on chronic anemia possibly due to blood loss and chronic medical illness. Transfuse for hemoglobin less than 7. She is status post transfusion 2 units of packed RBCs. 7. Rheumatoid arthritis with chronic pain. Hold Arava 20 mg orally once every day , continue fentanyl patch 12 micrograms every 72 hours, [place] 10 one every 8 hours for breakthrough pain., Lyrica 100 mg twice daily. 8. History of DVT. Xarelto 20 mg daily. 9. Hypothyroidism. Continue levothyroxine increased to 225 g daily. 10. Peripheral neuropathy. Continue patient on Lyrica 100 mg orally twice every day. 11. Chronic Charles catheter. Due to nonhealing decubitus ulcers. 12. Diarrhea. Fecal management system in place. 13. DVT prophylaxis. Resume Xarelto. 14. GI prophylaxis. We will maintain patient on Protonix 40 mg once every day. 15. Patient is full code. 16. COVID-19 infection not present. Discharge plan: on Wednesday. Impression and plan of care have been directed as dictated by the signing physician. Arlene Darnell nurse practitioner acting as scribe for signing physician.
[2020-02-26] MEDS: HYDROcodone/APAP 10-325MG 1 EACH TAB PO PRN (12:23)
--- NOTE | 2020-02-26 15:52 | P.DS ---
<Arlene Darnell A - Last Filed: 02/26/20 15:50> Providers Expected date of discharge: 02/27/20 Hospital Course: This is a 69-year-old female in my patient with a previous medical history significant for rheumatoid arthritis with significant deformities, currently wheelchair bound/bedbound, nonhealing wounds for bilateral lower extremities as well as stage IV sacral decubitus ulcer for which she has been treated with a wound VAC, she has been following with the wound healing Center at [facility] with Dr. Medina on a weekly basis and recently she had a PIC line inserted and she was started on IV antibiotic in the form of Rocephin for the next 10 days however she was told that the patient may need to go to the emergency department if she is not doing better over the next few days, patient while she was at home she was extremely lethargic and she was fatigued and tired she was feeling cold her daughter brought her to the ER at [facility] and she was found to have a worsening bilateral nonhealing wounds worse on the posterior left leg and the right heel along with a decubiti on the sacral area that was covered with a wound VAC, patient did have hypotension and leukocytosis initially and she was started on IV antibiotic in the form of vancomycin and m eropenem, 1 cultures as well as blood cultures were obtained, patient initially did receive a bolus of IV fluid and blood pressure was a bit better so the emergency room physician sent the patient to telemetry unit however the patient became hypotensive on the floor blood pressure drop to 55/35 and 18 was called and patient was transferred to the intensive care unit, Dr. Metz, patient had an arterial line placed and as well as triple lumen catheter in the right subclavian vein, she was kept on norepinephrine after the IV bolus and she was started on vancomycin and meropenem she was seen in consultation by infectious disease as well. She is to be treated in intensive care unit, her prognosis very guarded and she will definitely need to go to extended care facility for better wound healing. 02/18: Patient remains in the intensive care unit. She has been afebrile since the morning of February 17, heart rate 96, blood pressure 119/50, pulse ox 95% on room air. Repeat blood work reveals WBC improved at 14.9, hemoglobin at 8.3, platelet count 383. Sodium 134, potassium 3.9, chloride 114, CO2 19, BUN 19 and creatinine 0.81. TSH 13.3 and free T4 normal at 0.96, cortisol level 21. Blood culture is group D enterococcus, all left leg wound is Pseudomonas. Repeat blood culture is in progress with no growth after 24 hours. Patient is followed by Dr. Rangel with recommendations for daptomycin and meropenem and continue local wound care with Santyl. integrity specialist is a sinus rhythm. Patient has been on levofed had low dose and to be weaned off. Xarelto is currently on hold. Patient complains of feeling cold and shivering. She has had diarrhea and fecal management system has been added. She does complain of soreness to the buttocks area. Wound VAC to be applied. Charles catheter is in place. Thyroid dosing increased. 02/19: Patient remains in the intensive care unit. She has been off levo fed since 5:30 last evening. She states her pain is about the same as yesterday. She remains with fecal management system was small amount of output and Charles catheter are in place. PICC line is also in place from previous admission. C. difficile toxin came back negative. Patient has been afebrile, pulse of 96, blood pressure 113/66, pulse ox 95% on room air. Patient has been seen by Wound Center team with recommendations for wound VAC to the sacral wound and also Santyl to the leg wounds. Right eye swelling is improved from yesterday. Repeat blood work reveals WBC 11.3, hemoglobin 7.8. Sodium 132, potassium 4, chloride 111, CO2 20, BUN 19 and creatinine 0.75. 02/20: Patient remains in the intensive care unit and blood pressures been on the low side with systolic of 90. Patient is currently on IV fluids and 130 mL per hour with increased fluid retention in the lower extremities. IV fluids decreased to 75 mL per hour. Patient was on midodrine prior to admission will be resumed. Patient states that she slept okay. She continues to have pain secondary to take wounds. Fecal management system and Charles catheter in place. Decreased output from the fecal management system. She denies any shortness of breath. No nausea. She states her appetite is good. She is complaining of sore throat and difficulty swallowing. Nystatin added for possible early thrush. Patient is been afebrile, heart rate 101, blood pressure 101/40, pulse ox 96% on room air. Repeat blood work reveals WBC down to 9, hemoglobin 7.4, platelet count 267. Sodium 135, potassium 4.2, chloride 114, CO2 20, BUN 21 creatinine 0.77, blood sugar 84, albumin 1.5. She has a wound VAC in place to sacral wounds and dressings in place to the bilateral lower extremity wounds. 02/21: Patient is seen today on the [facility] floor. She states she still has pain with any movement of her legs. She denies having any chest pain or shortness of breath. She complains of sore throat and was started on nystatin yesterday. Fecal management system remains in place with very little output. Charles catheter is in place as well. Patient has been afebrile, heart rate 88, blood pressure 107/71, pulse ox 97% on room air. Repeat blood work reveals WBC 10.4, hemoglobin 8. Sodium 134, potassium 4.0, chloride 115, CO2 18, BUN 21 creatinine 0.7. Total bilirubin 0.3, AST 39, ALT 14, alkaline phosphatase 75. Wound culture Pseudomonas. Blood culture Enterococcus faecium VRE. Patient is currently on daptomycin and meropenem. Patient does have a PICC line in place from previous IV antibiotic therapy. We will plan to resume patient on Xarelto and discontinue Lovenox. 02/22: Patient denies having any nausea. No fever. She continues to complain of sore throat. She received 1 dose of Ferrlecit yesterday. Repeat blood work reveals WBC 9.7, hemoglobin 7.9, platelet count 297. Sodium 138, potassium 4.3, chloride 114, CO2 20, BUN 20 creatinine 0.73. She has been afebrile, heart rate 72, blood pressure 114/82, pulse ox 99% on room air. Wounds are evaluated on the lower extremities and we will add in a consult with vascular surgery to evaluate for debridement. She has minimal output from fecal management system. Chronic Charles catheter remains in place. Patient's discharge plan is to return to [facility] and she will need a repeat COVID test on Wednesday. 02/23: Patient is laying on the bed in no apparent distress she denies any chest pain or shortness breath, she appears more pale today, she was seen in consultation by vascular surgery the plan is to go for debridement and duodenum the left lower extremity, her pain is well controlled, she is maintained and IV anabiotic, she continues to have some sore throat, for which she has been maintained on nystatin swish and swallow, patient most likely will be transferred to [facility] after the debridement in the OR. 02/24: Patient is laying on the bed she appears to be a bit weaker today her hemoglobin did drop to 6.9, she will be getting 1 unit of packed cells, her wound VAC is leaking and nursing staff tried to fix that appears to be holding at this point in time, she was seen in consultation by vascular surgery and she is to be scheduled for debridement in the OR hopefully the next 24 hours. 02/25: The patient is resting in bed. She denies any new complaints. Pain is fairly well-controlled today. Discussed debridement issue with Dr. Martin and Wound Center. No plan for debridement due to patient's underlying condition of pyoderma gangrenosum which can be worsened with debridement. Patient has Charles in place. Dr. talbot is planning on 2-3 weeks of IV antibiotics. Patient does have a PICC line and from previous IV antibiotic therapy. Patient has been afebrile, heart rate 99, blood pressure 105/76, pulse ox 94% on room air. Repeat blood work reveals WBC 8.9, hemoglobin 8.4. Sodium 135, potassium 4.1, c hloride 111, CO2 22, BUN 18 and creatinine 0.79. Anticipate discharge back to [facility] tomorrow. Dr. Rangel has clarified IV antibiotics for meropenem and daptomycin for 4 week course. Discharge diagnoses: 1. Bilateral nonhealing venous stasis ulcers in both lower extremities mostly left and right heel along with a chronic right buttock/ischium pressure ulcer stage III, poa, history of stage IV. Wound VAC to the right buttock pressure ulcer. All other ulcerations, Santyl. 2. Severe sepsis with hypotension and septic shock due to infected bilateral lower extremity nonhealing wounds and VRE bacteremia. 3. Leukocytosis related to an infected bilateral lower extremities wounds. 4. Mild hyponatremia and hypokalemia, status post replacement. 5. Hypomagnesemia status post replacement. 6. Acute on chronic anemia possibly due to blood loss and chronic medical illness status post transfusion 2 units of packed RBCs. 7. Rheumatoid arthritis with chronic pain. 8. History of DVT. 9. Hypothyroidism. 10. Peripheral neuropathy. 11. Chronic Charles catheter. Due to nonhealing decubitus ulcers. 12. Diarrhea, resolved. 13. COVID-19 infection not present. Discharge plan: on Wednesday. Impression and plan of care have been directed as dictated by the signing physician. Arlene Darnell nurse practitioner acting as scribe for signing physician. Patient Condition at Discharge: Good Plan - Discharge Summary Discharge Rx Participant: No New Discharge Prescriptions: New fentaNYL 12MCG/HR PATCH [Duragesic 12MCG/HR] 1 patch TRANSDERM Q72H #1 patch Nystatin 100,000 Unit/ml Susp [Mycostatin Oral Susp] 500,000 unit PO QID ml Pantoprazole [Protonix] 40 mg PO AC-BRKFST tablet.dr Reed [Santyl] 1 applic TOPICAL DAILY@2100 applic Acetaminophen Tab [Tylenol] 650 mg PO Q6HR PRN tab PRN Reason: Fever And/ Or Pain DAPTOmycin [Cubicin] 600 mg IVPB DAILY@1200 #28 vial Meropenem [Merrem] 1 gm IVPB Q8H #84 vial Continue Levothyroxine Sodium [Synthroid] 200 mcg PO DAILY Rivaroxaban [Xarelto] 20 mg PO DAILY@0800 Ferrous Sulfate [Feosol] 325 mg PO DAILY Sucralfate [Carafate] 1 gm PO AC-TID #90 tab Midodrine [ProAmatine] 10 mg PO AC-TID tab Leflunomide [Arava] 20 mg PO DAILY Collagenase [Santyl] 1 applic TOPICAL DAILY applic predniSONE [Deltasone] 20 mg PO DAILY Furosemide [Lasix] 20 mg PO MOWEFR Potassium Chloride ER [K-Dur 10] 10 meq PO MOWEFR Pregabalin [Lyrica] 100 mg PO BID #6 cap HYDROcodone/APAP 10-325MG [Sumner 10-325] 1 tab PO Q8HR PRN #9 tab PRN Reason: Pain Discontinued cefTRIAXone [Rocephin] 1 gm IVPB Q12H Discharge Medication List Levothyroxine Sodium [Synthroid] 200 mcg PO DAILY 08/26/17 [History] Rivaroxaban [Xarelto] 20 mg PO DAILY@0800 07/10/19 [History] Ferrous Sulfate [Feosol] 325 mg PO DAILY 09/03/19 [History] Midodrine [ProAmatine] 10 mg PO AC-TID tab 09/07/19 [Rx] Sucralfate [Carafate] 1 gm PO AC-TID #90 tab 09/07/19 [Rx] Leflunomide [Arava] 20 mg PO DAILY 10/10/19 [History] Collagenase [Santyl] 1 applic TOPICAL DAILY applic 10/13/19 [Rx] Furosemide [Lasix] 20 mg PO MOWEFR 02/02/20 [History] Potassium Chloride ER [K-Dur 10] 10 meq PO MOWEFR 02/02/20 [History] predniSONE [Deltasone] 20 mg PO DAILY 02/02/20 [History] Acetaminophen Tab [Tylenol] 650 mg PO Q6HR PRN tab 02/26/20 [Rx] Collagenase [Santyl] 1 applic TOPICAL DAILY@2100 applic 02/26/20 [Rx] DAPTOmycin [Cubicin] 600 mg IVPB DAILY@1200 #28 vial 02/26/20 [Rx] HYDROcodone/APAP 10-325MG [Sumner 10-325] 1 tab PO Q8HR PRN #9 tab 02/26/20 [Rx] Meropenem [Merrem] 1 gm IVPB Q8H #84 vial 02/26/20 [Rx] Nystatin 100,000 Unit/ml Susp [Mycostatin Oral Susp] 500,000 unit PO QID ml 02/26/20 [Rx] Pantoprazole [Protonix] 40 mg PO AC-BRKFST tablet. 02/26/20 [Rx] Pregabalin [Lyrica] 100 mg PO BID #6 cap 02/26/20 [Rx] fentaNYL 12MCG/HR PATCH [Duragesic 12MCG/HR] 1 patch TRANSDERM Q72H #1 patch 02/26/20 [Rx] Follow up Appointment(s)/Referral(s): Alecia Oh, [NON-STAFF] - As Needed [facility], [NON-STAFF] - As Needed Braulio Medina MD [STAFF PHYSICIAN] - 1-2 days (Wound Center) Cierra Moyer MD [Primary Care Provider] - 1 Week (at [facility] ) Discharge Disposition: TRANSFER TO SNF/ECF <Comfort,Emad - Last Filed: 02/27/20 08:18> Providers Date of admission: 02/17/20 15:11 Attending physician: Cierra Moyer Consults: 02/17/20 15:12 Consult Physician Urgent Consulting Provider: Jocelyn Rangel Consult Reason/Comments: leg ulcers, severe sepsis Do you want consulting provider notified?: Yes 02/17/20 17:46 Consult Physician Stat Consulting Provider: Phuc Metz Consult Reason/Comments: sepsis, low BP Do you want consulting provider notified?: Already Contacted 02/23/20 07:53 Consult Physician Routine Consulting Provider: Colten Murdock Consult Reason/Comments: debridement of PUs Do you want consulting provider notified?: Yes 02/23/20 10:47 Consult Physician Routine Consulting Provider: Tu Martin Consult Reason/Comments: debridement wounds Do you want consulting provider notified?: Yes Primary care physician: Cierra Moyer
[2020-02-26] MEDS: RIVAROXABAN 20 MG TAB PO SCH (17:49)
--- NOTE | 2020-02-26 22:52 | PN ---
PROGRESS NOTE DATE OF SERVICE: 02/26/2020 REASON FOR FOLLOWUP: Bilateral lower extremity wounds with cellulitis, sacral pressure ulcer and bacteremia. INTERVAL HISTORY: The patient is currently afebrile. The patient is breathing comfortably. The patient denies having any chest pain or shortness of breath or cough. No abdominal pain. No pain to the lower extremities. PHYSICAL EXAMINATION: Blood pressure 103/65 with a pulse of 98, temperature 98.2. She is 94% on room air. General description is an elderly female lying in bed in no distress. RESPIRATORY SYSTEM: Unlabored breathing. Clear to auscultation anteriorly. HEART: S1, S2. Regular rate and rhythm. ABDOMEN: Soft. No tenderness. Leg wounds are currently dressed up. No obvious drainage on the dressing. LABS: Hemoglobin 8.4, white count 8.9, BUN of 18, creatinine 0.79. DIAGNOSTIC IMPRESSION AND PLAN: Patient with vancomycin-resistant Enterococcus bacteremia. Source is likely lower extremity wounds with cellulitis with a culture positive for Pseudomonas. The patient has a PENICILLIN ALLERGY. She is currently covered with meropenem and daptomycin; to continue for another 4 weeks. Local wound care as ordered and continue with supportive care. MMODL / IJN: [id number] /
[2020-02-27] MEDS: COLLAGENASE 250 UNIT/GM OINTMENT 30 GM TUBE TOPICAL SCH (00:17)
[2020-02-27] MEDS: LEVOTHYROXINE 75 MCG TAB PO SCH (05:53)
[2020-02-27] MEDS: MEROPENEM 1 GM in SODIUM CHLORIDE 0.9% 100 ML IVPB SCH (05:53)
[2020-02-27] MEDS: MIDODRINE 5 MG TAB PO SCH (07:35)
[2020-02-27] MEDS: PANTOPRAZOLE 40 MG TABLET PO SCH (07:35)
[2020-02-27] MEDS: SUCRALFATE 1 GM TAB PO SCH (07:35)
[2020-02-27 08:10] VITALS: BP 81/58; PULSE 69; RESP 18; TEMP 98.7
[2020-02-27] MEDS ORDERED: POTASSIUM CHLORIDE ER 10 MEQ TAB.ER.PRT PO SCH (09:00)
[2020-02-27] MEDS ORDERED: FUROSEMIDE 20 MG TAB PO SCH (09:00)
[2020-02-27] MEDS: HYDROcodone/APAP 10-325MG 1 EACH TAB PO PRN (09:06)
[2020-02-27] MEDS: FERROUS SULFATE 325 MG TAB PO SCH (09:08)
[2020-02-27] MEDS: NYSTATIN 100,000 UNIT/ML SUSP 500,000 UNIT/5 ML CUP PO SCH (09:09)
[2020-02-27] MEDS: PREGABALIN 100 MG CAP PO SCH (09:09)
== END 2020-02-27 11:51 | DRG 871 ==
LOC: SUPCPDRO 12:34 → EC 12:34 → 3SCARD 15:11 → 2SICU 17:55 → 4SSUR 02-21 19:25
PROVIDERS: ADMIT Internal Medicine; ATTEND Internal Medicine
PROC: 30233N1 Transfusion of Nonautologous Red Blood Cells into Peripheral Vein, Percutaneous Approach (ICD-10-PCS; principal; 2020-02-18)
PROC: 3E033XZ Introduction of Vasopressor into Peripheral Vein, Percutaneous Approach (ICD-10-PCS; 2020-02-18)
PROC: 03HY32Z Insertion of Monitoring Device into Upper Artery, Percutaneous Approach (ICD-10-PCS; 2020-02-18)
PROC: 05H533Z Insertion of Infusion Device into Right Subclavian Vein, Percutaneous Approach (ICD-10-PCS; 2020-02-18)
PROC: 4A133J1 Monitoring of Arterial Pulse, Peripheral, Percutaneous Approach (ICD-10-PCS; 2020-02-18)
PROC: 4A133B1 Monitoring of Arterial Pressure, Peripheral, Percutaneous Approach (ICD-10-PCS; 2020-02-18)
DX: A41.81 Sepsis due to Enterococcus (principal); L89.623 Pressure ulcer of left heel, stage 3; L89.313 Pressure ulcer of right buttock, stage 3; L89.613 Pressure ulcer of right heel, stage 3; R65.21 Severe sepsis with septic shock; D62 Acute posthemorrhagic anemia; E87.1 Hypo-osmolality and hyponatremia; L03.116 Cellulitis of left lower limb; L03.115 Cellulitis of right lower limb; L97.812 Non-pressure chronic ulcer of other part of right lower leg with fat layer exposed; L97.822 Non-pressure chronic ulcer of other part of left lower leg with fat layer exposed; L88 Pyoderma gangrenosum; Z16.21 Resistance to vancomycin; A41.52 Sepsis due to Pseudomonas; D63.8 Anemia in other chronic diseases classified elsewhere; E03.9 Hypothyroidism, unspecified; E83.42 Hypomagnesemia; E87.6 Hypokalemia; G62.9 Polyneuropathy, unspecified; G89.29 Other chronic pain; Z20.828 Contact with and (suspected) exposure to other viral communicable diseases; I12.9 Hypertensive chronic kidney disease with stage 1 through stage 4 chronic kidney disease, or unspecified chronic kidney disease; I87.2 Venous insufficiency (chronic) (peripheral); M79.7 Fibromyalgia; M06.9 Rheumatoid arthritis, unspecified; N18.2 Chronic kidney disease, stage 2 (mild); R13.10 Dysphagia, unspecified; Z79.01 Long term (current) use of anticoagulants; Z79.890 Hormone replacement therapy; Z79.899 Other long term (current) drug therapy; Z80.6 Family history of leukemia; Z80.8 Family history of malignant neoplasm of other organs or systems; Z86.718 Personal history of other venous thrombosis and embolism; Z87.11 Personal history of peptic ulcer disease; Z88.0 Allergy status to penicillin; Z99.3 Dependence on wheelchair; Z88.8 Allergy status to other drugs, medicaments and biological substances; M25.572 Pain in left ankle and joints of left foot; M25.571 Pain in right ankle and joints of right foot; M79.643 Pain in unspecified hand; M79.89 Other specified soft tissue disorders; H02.843 Edema of right eye, unspecified eyelid; J02.9 Acute pharyngitis, unspecified; Z82.49 Family history of ischemic heart disease and other diseases of the circulatory system; Z90.49 Acquired absence of other specified parts of digestive tract; Z90.89 Acquired absence of other organs; Z86.14 Personal history of Methicillin resistant Staphylococcus aureus infection; R26.9 Unspecified abnormalities of gait and mobility; R19.7 Diarrhea, unspecified
CPT/HCPCS: 36415; 71045; 71046; 78315; 80048; 80053; 81003; 82533; 82550; 83605; 83735; 84100; 84132; 84439; 84443; 84484; 85025; 85027; 85610; 85730; 86850; 86900; 86901; 86920; 87040; 87070; 87077; 87186; 87205; 87324; 87635; 96361; 96365; 99291

== ENCOUNTER 2021-01-17 10:18 | Day surgery (SDC) | payer MEDICARE, OTHER ==
[2021-01-15 16:35] VITALS: BMI 40.2
[2021-01-17 10:43] VITALS: BP 132/57; PULSE 92; RESP 16; TEMP 98.6
[2021-01-17] MEDS ORDERED: HEPARIN SODIUM 1,000 UN/ML (10ML VL) ONE (12:05)
[2021-01-17] MEDS ORDERED: LIDOCAINE 1% INJ 10MG/ML (20 ML MDV) SQ ONE (12:17)
--- NOTE | 2021-01-17 12:43 | XR ---
EXAMINATION TYPE: XR chest 1V confirm line [facility] DATE OF EXAM: 01/17/2021 COMPARISON: 02/18/2020 HISTORY: PICC placement TECHNIQUE: Single frontal view of the chest is obtained. FINDINGS: There is no focal air space opacity, pleural effusion, or pneumothorax seen. The cardiac silhouette size is borderline enlarged. The osseous structures are intact. IMPRESSION: Borderline enlarged cardiac silhouette.
--- NOTE | 2021-01-17 13:12 | IR ---
EXAMINATION TYPE: IR cvc insert >=5 years DATE OF EXAM: 01/17/2021 COMPARISON: NONE HISTORY: Needs long-term intravenous access for therapy, infection FINDINGS: Maximal barrier technique was utilized. Hand hygiene obtained with soap and water and alco hol-based hand rub. The skin overlying the left basilic vein was localized with ultrasound and noted to be compressible and patent by ultrasound. An ultrasound image was obtained [facility]. Sterile technique utilized with the ultrasound machine. The skin overlying was prepped an d draped and Lidocaine used for local anesthesia. A skin alyssa was made with a scalpel. Access was g ained to the vein under direct ultrasound guidance with a 21-gauge needle and a 0.018 inch wire was a dvanced. Access site was dilated with a peel-away sheath and the catheter tailored to length. Alda ter advanced centrally and a post procedure chest x-ray verified placement with tip at the superior v ramon cava. Catheter was fixed to the skin and a sterile dressing placed. Hemostasis achieved and the catheter was aspirated and flushed with sterile saline. The patient remained in stable condition. IMPRESSION: STATUS POST ULTRASOUND GUIDED PICC LINE PLACEMENT, READY FOR USE. THIS PROCEDURE WAS PER FORMED BY THE UNDERSIGNED.
== END 2021-01-17 12:56 ==
LOC: CATHCVL 10:18
PROVIDERS: ATTEND Radiology Diagnostic Radiology
DX: L89.154 Pressure ulcer of sacral region, stage 4 (principal); L97.923 Non-pressure chronic ulcer of unspecified part of left lower leg with necrosis of muscle; L97.912 Non-pressure chronic ulcer of unspecified part of right lower leg with fat layer exposed; L89.313 Pressure ulcer of right buttock, stage 3; I73.9 Peripheral vascular disease, unspecified; M06.9 Rheumatoid arthritis, unspecified; M79.7 Fibromyalgia; D63.1 Anemia in chronic kidney disease; N18.2 Chronic kidney disease, stage 2 (mild); G89.29 Other chronic pain; E03.9 Hypothyroidism, unspecified; Z86.718 Personal history of other venous thrombosis and embolism; Z86.14 Personal history of Methicillin resistant Staphylococcus aureus infection; G62.9 Polyneuropathy, unspecified; Z20.822 Contact with and (suspected) exposure to COVID-19; K21.9 Gastro-esophageal reflux disease without esophagitis; I95.9 Hypotension, unspecified; Z79.899 Other long term (current) drug therapy; Z79.01 Long term (current) use of anticoagulants
CPT/HCPCS: 36573; 87635; J2001

== ENCOUNTER 2021-01-28 14:18 | Inpatient (IN) | payer MEDICARE, OTHER ==
[2021-01-28] MEDS ORDERED: SODIUM CHLORIDE 0.9% 500 ML 500 ML IV STA (15:03)
[2021-01-28 16:02] LABS: Basophils # (A) 0.1 k/uL (0-0.2); Basophils % (A) 1 %; Eosinophils # (A) 0.1 k/uL (0-0.7); Eosinophils % (A) 1 %; HCT 39.7 % (34.0-46.0); HGB 12.3 gm/dL (11.4-16.0); Hypochromasia Marked; Lymphocytes # (A) 0.5 k/uL (1.0-4.8); Lymphocytes % (A) 5 %; MCH 28.8 pg (25.0-35.0); MCHC 31.1 g/dL (31.0-37.0); MCV 92.5 fL (80.0-100.0); Mean Platelet Volume 7.7; Monocytes # (A) 0.3 k/uL (0-1.0); Monocytes % (A) 3 %; Neutrophils # (A) 8.6 k/uL (1.3-7.7); Neutrophils % (A) 90 %; Platelet Count 345 k/uL (150-450); RBC 4.29 m/uL (3.80-5.40); RDW 15.6 % (11.5-15.5); WBC 9.6 k/uL (3.8-10.6)
[2021-01-28 16:05] LABS: Albumin 3.7 g/dL (3.5-5.0); Calcium 9.7 mg/dL (8.4-10.2); Magnesium 2.3 mg/dL (1.6-2.3); Total Bilirubin 0.4 mg/dL (0.2-1.3); Total Protein 6.9 g/dL (6.3-8.2)
--- NOTE | 2021-01-28 16:07 | ED ---
General Adult HPI - General Chief complaint: Weakness Stated complaint: Med Reaction Time Seen by Provider: 01/28/21 14:51 Source: patient, EMS Mode of arrival: EMS Limitations: physical limitation - History of Present Illness Initial comments: 70-year-old female presents to emergency department with a chief Complaint of weakness. Patient is coming from [facility] for increased weakness and is more sleepy than usual. She also has decreased appetite since yesterday. Patient has a chronic decubitus ulcer it typically has a wound VAC but now has been removed. She also is an ulcer on the left lower extremity. Patient supposedly is feeling slightly weak and usual but she is denying any other complaints. She denied chest pain shortness of breath. Patient was started on Invanz yesterday and was also given 80 mg of Benadryl for possible ALLERGIC reaction. The staff believes her weakness is secondary to starting any medication. - Related Data Home Medications Medication Instructions Recorded Confirmed Levothyroxine Sodium [Synthroid] 200 mcg PO DAILY 08/26/17 01/15/21 Rivaroxaban [Xarelto] 20 mg PO DAILY@0800 07/10/19 01/17/21 Ferrous Sulfate [Feosol] 325 mg PO DAILY 09/03/19 01/15/21 Leflunomide [Arava] 20 mg PO DAILY 10/10/19 01/15/21 Ascorbic Acid [Vitamin C] 500 mg PO DAILY 01/15/21 01/15/21 Doxycycline Hyclate 100 mg PO DAILY 01/15/21 01/15/21 Furosemide [Lasix] 40 mg PO DAILY 01/15/21 01/15/21 HYDROcodone/APAP 10-325MG [[place] 1 tab PO Q8H PRN 01/15/21 01/15/21 10-325] Lactobacillus Acidophilus 1 each PO DAILY 01/15/21 01/15/21 [Acidophilus Probiotic] Lidocaine 5% Oint [Xylocaine 5% 1 applic TOPICAL DIRECTED 01/15/21 01/15/21 Oint] Loperamide HCl [Loperamide] 2 mg PO DAILY PRN 01/15/21 01/15/21 Loratadine [Claritin] 10 mg PO DAILY 01/15/21 01/15/21 Ondansetron [Zofran] 4 mg PO Q8HR PRN 01/15/21 01/15/21 Potassium Chloride [Klor-Con 20] 20 meq PO DAILY 01/15/21 01/15/21 bisacodyL [Dulcolax] 10 mg RECTAL DAILY PRN 01/15/21 01/15/21 predniSONE 4 mg PO DAILY 01/15/21 01/15/21 Previous Rx's Medication Instructions Recorded Sucralfate [Carafate] 1 gm PO AC-TID #90 tab 09/07/19 Acetaminophen Tab [Tylenol] 650 mg PO Q6HR PRN tab 02/26/20 Collagenase [Santyl] 1 applic TOPICAL DAILY@2100 applic 02/26/20 HYDROcodone/APAP 10-325MG [[place] 1 tab PO Q8HR PRN #9 tab 02/26/20 10-325] Pregabalin [Lyrica] 100 mg PO BID #6 cap 02/26/20 fentaNYL 12MCG/HR PATCH [Durages[place] 1 patch TRANSDERM Q72H #1 patch 02/26/20 12MCG/HR] Allergies Allergy/AdvReac Type Severity Reaction Status Date / Time ceftriaxone [From Rocephin] Allergy Rash/Hives Verified 01/28/21 14:34 Penicillins Allergy Rash/Hives Verified 01/15/21 15:51 POSITIVE TB REACTOR Allergy Unknown Uncoded 01/15/21 15:51 Review of Systems ROS Statement: Those systems with pertinent positive or pertinent negative responses have been documented in the HPI. ROS Other: All systems not noted in ROS Statement are negative. Past Medical History Past Medical History: Deep Vein Thrombosis (DVT), Fibromyalgia, GI Bleed, Hypertension, Renal Disease, Rheumatoid Arthritis (RA), Skin Disorder, Thyroid Disorder Additional Past Medical History / Comment(s): Hx bleeding stomach ulcer. CKD, stage II; "Leaky bladder," "poor circulation," current Wound rt buttock, with wound vac, wound left lower leg, Hx Rt hip fx, no surg. Debilitated D/T RA, needs mechanical lift History of Any Multi-Drug Resistant Organisms: MRSA, VRE Date of last positivie culture/infection: 02/17/20 VRE 12/08/19 MRSA MDRO Source:: unknown Past Surgical History: Appendectomy, Cholecystectomy, Tonsillectomy Additional Past Surgical History / Comment(s): Lt foot wound debridement. Nodule exc from thyroid. Sinus surgery. surgical excision, debridment of sacrum w/ wound VAC placement on 08/05/15 and sx done(flap), developed pin hole leak - had 2nd sx to repair. Debridement wound care to RLE wound on 08/21/15. Past Anesthesia/Blood Transfusion Reactions: No Reported Reaction Additional Past Anesthesia/Blood Transfusion Reaction / Comment(s): Pt has received blood in past without reaction. Past Psychological History: No Psychological Hx Reported Smoking Status: Never smoker - Past Family History Mother Family Medical History: AFIB, Cancer Additional Family Medical History / Comment(s): skin cancer Father Family Medical History: Cancer, Liver Disease, Rheumatoid Arthritis (RA) Additional Family Medical History / Comment(s): Leukemia. at age 72 of liver problem. General Exam Limitations: physical limitation General appearance: alert, in no apparent distress, obese Head exam: Present: atraumatic, normocephalic, normal inspection Eye exam: Present: normal appearance, PERRL, EOMI Pupils: Present: normal accommodation ENT exam: Present: normal exam, normal oropharynx, mucous membranes moist, TM's normal bilaterally, normal external ear exam Neck exam: Present: normal inspection, full ROM. Absent: tenderness, lymphade nopathy Respiratory exam: Present: normal lung sounds bilaterally. Absent: respiratory distress, wheezes, rales, rhonchi, stridor Cardiovascular Exam: Present: regular rate, normal rhythm, normal heart sounds. Absent: systolic murmur GI/Abdominal exam: Present: soft. Absent: distended, tenderness, guarding, rebound Extremities exam: Present: full ROM, normal capillary refill, other (Palpable DP and PT bilaterally). Absent: normal inspection (Chronic wound lateral aspect of the left lower extremity), pedal edema, joint swelling, calf tenderness Back exam: Present: tenderness (Mild tenderness at the site). Absent: normal inspection (Decubitus ulcer) Neurological exam: Present: alert, oriented X3, CN II-XII intact Expanded Patient oriented to: Present: person, place, time Speech: Present: fluid speech Cranial nerves: EOM's Intact: Normal, Gag Reflex: Normal, Tongue Deviation: Normal, Nystagmus: Normal, Facial Sensation: Normal Sensory exam: Upper Extremity Light Touch: Normal, Upper Extremity Pin Prick: Normal, Lower Extremity Light Touch: Normal, Lower Extremity Pin Prick: Normal Psychiatric exam: Present: normal affect, normal mood Skin exam: Present: warm, dry, intact, normal color Course Vital Signs 01/28/21 01/28/21 14:24 16:00 Temperature 98.2 F 97.8 F Pulse Rate 89 90 Respiratory 18 18 Rate Blood Pressure 119/88 103/60 O2 Sat by Pulse 94 L 98 Oximetry - Reevaluation(s) Reevaluation #1: 01/28/21 17:21 Patient was reevaluated and she reports now that she developed a headache area Her daughter also came after some time and she told me the patient has been having jerking movements since she started taking her new antibiotic. EKG Findings - EKG Comments: EKG Findings:: Sinus rhythm and no acute ischemic changes. ventricular rate 92, GA 188, QRS 94, QTC 422. Medical Decision Making - Medical Decision Making 70-year-old female presents to emergency department with a chief Complaint of weakness. On physical examination, she has a chronic decubitus ulcer along with a wound on the left lower extremity. The wound VAC on the decubitus ulcer is functioning at this time. Laboratory work shows elevated BUN at 50, however this appears to be somewhat of her baseline. Creatinine within normal limits. Lactic acid 1.3. She has been hemodynamically stable in the emergency department. Rest of vital signs are within normal limits. Chest x-ray shows possible scarring but no other acute findings. Troponin is negative. EKG shows no acute ischemic findings. Blood cultures are pending. No concern for sepsis at this time. UA shows possible urinary tract infection. I spoke to who will admit the patient and recommended Levaquin and vancomycin. Case discussed with Dr. Carrasquillo Infectious disease on consult. - Lab Data Result diagrams: 01/28/21 15:38 01/28/21 15:38 Lab Results 01/28/21 01/28/21 01/28/21 Range/Units 15:38 15:38 15:38 WBC 9.6 (3.8-10.6) k/uL RBC 4.29 (3.80-5.40) m/uL Hgb 12.3 (11.4-16.0) gm/dL Hct 39.7 (34.0-46.0) % MCV 92.5 (80.0-100.0) fL MCH 28.8 (25.0-35.0) pg MCHC 31.1 (31.0-37.0) g/dL RDW 15.6 H (11.5-15.5) % Plt Count 345 (150-450) k/uL MPV 7.7 Neutrophils % 90 % Lymphocytes % 5 % Monocytes % 3 % Eosinophils % 1 % Basophils % 1 % Neutrophils # 8.6 H (1.3-7.7) k/uL Lymphocytes # 0.5 L (1.0-4.8) k/uL Monocytes # 0.3 (0-1.0) k/uL Eosinophils # 0.1 (0-0.7) k/uL Basophils # 0.1 (0-0.2) k/uL Hypochromasia Marked PT 11.7 (9.0-12.0) sec INR 1.1 (<1.2) APTT 28.1 (22.0-30.0) sec Sodium 140 (137-145) mmol/L Potassium 4.9 (3.5-5.1) mmol/L Chloride 94 L (98-107) mmol/L Carbon Dioxide 39 H (22-30) mmol/L Anion Gap 7 mmol/L BUN 50 H (7-17) mg/dL Creatinine 0.91 (0.52-1.04) mg/dL Est GFR (CKD-EPI)AfAm 73 (>60 ml/min/1.73 sqM) Est GFR (CKD-EPI)NonAf 63 (>60 ml/min/1.73 sqM) Glucose 165 H (74-99) mg/dL Plasma Lactic Acid Darryl (0.7-2.0) mmol/L Calcium 9.7 (8.4-10.2) mg/dL Magnesium 2.3 (1.6-2.3) mg/dL Total Bilirubin 0.4 (0.2-1.3) mg/dL AST 23 (14-36) U/L ALT 12 (4-34) U/L Alkaline Phosphatase 106 (38-126) U/L Troponin I (0.000-0.034) ng/mL Total Protein 6.9 (6.3-8.2) g/dL Albumin 3.7 (3.5-5.0) g/dL Urine Color Urine Appearance (Clear) Urine pH (5.0-8.0) Ur Specific [place] (1.001-1.035) Urine Protein (Negative) Urine Glucose (UA) (Negative) Urine Ketones (Negative) Urine Blood (Negative) Urine Nitrite (Negative) Urine Bilirubin (Negative) Urine Urobilinogen (<2.0) mg/dL Ur Leukocyte Esterase (Negative) Urine RBC (0-5) /hpf Urine WBC (0-5) /hpf Urine WBC Clumps (None) /hpf Ur Squamous Epith Cells (0-4) /hpf Urine Bacteria (None) /hpf Hyaline Casts (0-2) /lpf Urine Mucus (None) /hpf Urine Yeast (Budding) (None) /hpf 01/28/21 01/28/21 01/28/21 Range/Units 15:38 15:38 16:12 WBC (3.8-10.6) k/uL RBC (3.80-5.40) m/uL Hgb (11.4-16.0) gm/dL Hct (34.0-46.0) % MCV (80.0-100.0) fL MCH (25.0-35.0) pg MCHC (31.0-37.0) g/dL RDW (11.5-15.5) % Plt Count (150-450) k/uL MPV Neutrophils % % Lymphocytes % % Monocytes % % Eosinophils % % Basophils % % Neutrophils # (1.3-7.7) k/uL Lymphocytes # (1.0-4.8) k/uL Monocytes # (0-1.0) k/uL Eosinophils # (0-0.7) k/uL Basophils # (0-0.2) k/uL Hypochromasia PT (9.0-12.0) sec INR (<1.2) APTT (22.0-30.0) sec Sodium (137-145) mmol/L Potassium (3.5-5.1) mmol/L Chloride (98-107) mmol/L Carbon Dioxide (22-30) mmol/L Anion Gap mmol/L BUN (7-17) mg/dL Creatinine (0.52-1.04) mg/dL Est GFR (CKD-EPI)AfAm (>60 ml/min/1.73 sqM) Est GFR (CKD-EPI)NonAf (>60 ml/min/1.73 sqM) Glucose (74-99) mg/dL Plasma Lactic Acid Darryl 1.3 (0.7-2.0) mmol/L Calcium (8.4-10.2) mg/dL Magnesium (1.6-2.3) mg/dL Total Bilirubin (0.2-1.3) mg/dL AST (14-36) U/L ALT (4-34) U/L Alkaline Phosphatase (38-126) U/L Troponin I <0.012 (0.000-0.034) ng/mL Total Protein (6.3-8.2) g/dL Albumin (3.5-5.0) g/dL Urine Color Light Yellow Urine Appearance Cloudy H (Clear) Urine pH 5.0 (5.0-8.0) Ur Specific [place] 1.010 (1.001-1.035) Urine Protein Negative (Negative) Urine Glucose (UA) Negative (Negative) Urine Ketones Negative (Negative) Urine Blood Negative (Negative) Urine Nitrite Negative (Negative) Urine Bilirubin Negative (Negative) Urine Urobilinogen <2.0 (<2.0) mg/dL Ur Leukocyte Esterase Large H (Negative) Urine RBC 4 (0-5) /hpf Urine WBC 63 H (0-5) /hpf Urine WBC Clumps Moderate H (None) /hpf Ur Squamous Epith Cells 1 (0-4) /hpf Urine Bacteria Rare H (None) /hpf Hyaline Casts 9 H (0-2) /lpf Urine Mucus Rare H (None) /hpf Urine Yeast (Budding) Many H (None) /hpf Disposition Clinical Impression: Weakness, Urinary tract infection, Decubitus ulcer Disposition: ADMITTED IP TO THIS [facility] Condition: Fair Is patient prescribed a controlled substance at d/c from ED?: No Referrals: Cierra Moyer MD [Primary Care Provider] - 1-2 days Time of Disposition: 17:40
--- NOTE | 2021-01-28 16:08 | XR ---
EXAMINATION TYPE: XR chest 2V DATE OF EXAM: 01/28/2021 COMPARISON: Chest x-ray 01/17/2021 HISTORY: Weakness, abnormal chest x-ray TECHNIQUE: Frontal and lateral views of the chest are obtained. FINDINGS: There is aneurysmal dilation of the aorta. Heart is enlarged. Interstitium is increased. P atient is rotated. No evident pneumothorax or pleural effusion. Patient is rotated. Lung volumes are low. Prominence of pulmonary artery may be indicative of pulmonary artery hypertension. There is pleu ral thickening. IMPRESSION: Pleural thickening and associated atelectasis, possible scarring, rotated expiratory exa m. Cardiomegaly. Possible underlying pulmonary artery hypertension.
[2021-01-28 16:12] LABS: INR 1.1 (<1.2); Partial Thromboplastin Time 28.1 sec (22.0-30.0); Prothrombin Time 11.7 sec (9.0-12.0)
[2021-01-28 16:15] LABS: Potassium 4.9 mmol/L (3.5-5.1)
[2021-01-28 16:26] LABS: Appearance,Urine Cloudy (Clear); Bacteria,Urine Rare /hpf; Bilirubin,Urine Negative (Negative); Blood,Urine Negative (Negative); Budding Yeast,Urine Many /hpf; Color,Urine Light Yellow; Glucose,Urine (UA) Negative (Negative); Hyaline Casts,Urine 9 /lpf (0-2); Ketones,Urine Negative (Negative); Leukocyte Esterase,Urine Large (Negative); Mucus,Urine Rare /hpf; Nitrite,Urine Negative (Negative); Protein,Urine Negative (Negative); RBC,Urine 4 /hpf (0-5); Squamous Epithelial Cell,Urine 1 /hpf (0-4); Urobilinogen,Urine <2.0 mg/dL (<2.0); WBC,Urine 63 /hpf (0-5)
[2021-01-28] MEDS ORDERED: LEVOFLOXACIN 500MG-D5W PMX 500 MG in DEXTROSE/WATER 1 100ML.BAG IVPB STA (17:35)
[2021-01-28] MEDS ORDERED: VANCOMYCIN IV PER PHARMACY 1 EACH MISC MISCELLANE PRN (17:36)
[2021-01-28] MEDS ORDERED: NALOXONE 0.4 MG/ML 1 ML VIAL IV PRN (17:41)
[2021-01-28] MEDS ORDERED: ONDANSETRON 4 MG/2 ML VIAL IVP PRN (17:41)
[2021-01-28] MEDS ORDERED: VANCOMYCIN 2,000 MG in SODIUM CHLORIDE 0.9% 500 ML 500 ML IVPB STA (17:46)
[2021-01-28] MEDS: SODIUM CHLORIDE 0.9% 1,000 ML IV SCH (18:14)
[2021-01-29] MEDS ORDERED: LOPERAMIDE 2 MG CAP PO PRN (08:05)
[2021-01-29] MEDS ORDERED: ACETAMINOPHEN TAB 325 MG TAB PO PRN (08:05)
[2021-01-29] MEDS ORDERED: MAGNESIUM HYDROXIDE 2,400 MG/10 ML CUP PO PRN (08:05)
[2021-01-29] MEDS ORDERED: MAG HYDROX/AL HYDROX/SIMETH 30 ML CUP PO PRN (08:05)
[2021-01-29] MEDS ORDERED: ONDANSETRON 4 MG TAB PO PRN (08:05)
[2021-01-29] MEDS ORDERED: bisacodyL 10 MG SUPP RECTAL PRN (08:05)
[2021-01-29] MEDS ORDERED: diphenhydrAMINE 25 MG CAP PO PRN (08:05)
[2021-01-29] MEDS ORDERED: PANTOPRAZOLE 40 MG/10 ML VIAL IV SCH (09:00)
[2021-01-29] MEDS ORDERED: LIDOCAINE 2% GEL 30 ML TUBE TOPICAL PRN (09:00)
[2021-01-29] MEDS: SUCRALFATE 1 GM TAB PO SCH ×2 (10:39→16:28)
[2021-01-29] MEDS: HYDROCORTISONE SUCCINATE 100 MG/2 ML VIAL IV SCH ×2 (10:39→16:28)
[2021-01-29] MEDS: HYDROcodone/APAP 10-325MG 1 EACH TAB PO PRN (10:40)
[2021-01-29] MEDS: SODIUM CHLORIDE 0.9% 1,000 ML IV SCH ×2 (10:41→13:26)
[2021-01-29] MEDS: VANCOMYCIN 2,000 MG in SODIUM CHLORIDE 0.9% 500 ML 500 ML IVPB SCH (11:58)
[2021-01-29] MEDS ORDERED: NON FORMULARY DRUG (Liquacel 30 ML) PO SCH (12:00)
[2021-01-29] MEDS: COLLAGENASE 250 UNIT/GM OINTMENT 30 GM TUBE TOPICAL SCH (13:26)
--- NOTE | 2021-01-29 15:04 | P.HPIM ---
History of Present Illness H&P Date: 01/29/21 HISTORY OF PRESENT ILLNESS This is a 70-year-old female patient of Dr. Moyer with a previous medical history significant for rheumatoid arthritis with significant de formities, currently wheelchair bound/bedbound, nonhealing wounds for bilateral lower extremities as well as stage IV sacral decubitus ulcer for which she has been treated with a wound VAC, she has been following with the wound healing Center at [facility] with Dr. Medina at [facility] on a weekly basis. She was started on ertapenem on January 23 run for 14 days, transition on January 27 to cefepime 1 g every 12 hour but appeared the patient had a reaction and this was held and patient was started on IV Solu-Medrol. Patient was having change in mental status, low pulse ox and not eating and [facility] was advised transport the patient to [facility] emergency center for further evaluation and treatment. Patient is afebrile, heart rate in the 70s and 80s, blood pressure 108/60, pulse ox 91% on room air. WBC 9.6, hemoglobin 12.3, platelet count 345. INR 1.1. Sodium 140, potassium 4.9, chloride 94, CO2 39, BUN 50 and creatinine 0.91. Blood sugar 165. Lactic acid 1.3. Calcium 9.7. Magnesium 2.3. Liver function tests are normal. Troponin negative. Urinalysis cloudy, leukoesterase large, WBC 63, WBC clumps moderate, bacteria rare. Chest x-ray reveals pleural thickening and associated atelectasis, possible scarring, rotated exam. Cardiomegaly. Possible underlying pulmonary artery hypertension. Patient to be admitted to the MedSurg floor, consult with Dr. Rangel, patient is continued on vancomycin for now. Urine culture and blood cultures have been obtained. REVIEW OF SYSTEMS Constitutional: No fever, no chills, no night sweats. No weight change. Reported weakness, reported fatigue reported lethargy. Reported daytime sleep iness. EENT: No headache. No blurred vision or double vision, no loss of vision. No loss of Hearing, no ringing in the ears, no dizziness. No nasal drainage or congestion. No epistaxis. No sore throat. Lungs: No shortness of breath, cough, no sputum production. No wheezing. Cardiovascular: No chest pain, no lower extremity edema. No palpitations. No paroxysmal nocturnal dyspnea. No orthopnea. No lightheadedness or dizziness. No syncopal episodes. Abdominal: No abdominal pain. No nausea, vomiting. No diarrhea. No constipation. No bloody or tarry stools.. Reported loss of appetite. Genitourinary: No dysuria, increased frequency, urgency. No urinary retention. Musculoskeletal: No myalgias. No muscle weakness, no gait dysfunction, no frequent falls. No back pain. No neck pain. Integumentary: Noted wounds, no lesions. No rash or pruritus. No unusual bruising. No change in hair or nails. Neurologic: No aphasia. No facial droop. Noted change in mentation. No head injury. No headache. No paralysis. No paresthesia. Psychiatric: No depression. No anxiety. No mood swings. Endocrine: No abnormal blood sugars. No weight change. No excessive sweating or thirst. No cold intolerance. SOCIAL HISTORY Patient is a lifelong nonsmoker, no alcohol abuse, she resides at [facility]. FAMILY HISTORY Mother has history of skin cancer. Father has history of leukemia and at age 72 from a liver problem also with history of rheumatoid arthritis. PHYSICAL EXAMINATION Gen: This is is a morbidly obese 70-year-old white female. She is resting on the ER stretcher. She appears to be comfortable. Noted mild confusion from her baseline. HEENT: Head is atraumatic, normocephalic. Pupils equal, round. Sclerae is anicteric. NECK: Supple. No JVD. No lymphadenopathy. No thyromegaly. LUNGS: Clear to auscultation. No wheezes or rhonchi. No intercostal retractions. HEART: First heart sound is depressed, second heart sounds normal, tachycardic, there is systolic murmur 2/6. Left sternal border. ABDOMEN: Soft. Bowel sounds are present. No masses. No tenderness. EXTREMITIES: No pedal edema. No calf tenderness. Wounds to the coccyx area, wounds to the bilateral lower extremities with purulent drainage and foul smell. NEUROLOGICAL: Patient is awake, alert and oriented to person and place. Generalized weakness. ASSESSMENT AND PLAN 1. Sepsis secondary to bilateral lower extremity nonhealing wounds and coccyx wound, acute urinary tract infection. Consult with Dr. Rangel. Continue vancomycin for now 2. Bilateral nonhealing wounds to the lower extremities and chronic sacral decubitus. Patient has been under the care of the wound center and Dr. Medina at [facility]. 3. Possible ALLERGIC reaction to cefepime at [facility]. Cefepime was discontinued and patient placed on IV Solu-Medrol. 4. Rheumatoid arthritis with chronic pain, significant deformities, wheelchair bound. Continue fentanyl patch 25 g per hour every 72 hours, [place] 10 one every 8 hours as needed and 1 daily, Lyrica 100 mg twice daily, Araiva 20 mg daily. 5. 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 Patient started on Solu-Cortef 50 mg IV every 8 hours. Hold oral prednisone. 6. Metabolic encephalopathy secondary to sepsis. Treat underlying cause. 7. Anemia of chronic illness. Continue ferrous sulfate 325 mg twice daily. 8. History of DVT. Xarelto 20 mg daily. 9. Hypothyroidism. Continue levothyroxine 200 g daily. 10. Peripheral neuropathy. Continue patient on Lyrica 100 mg orally twice every day. 11. Chronic Charles catheter. Due to nonhealing decubitus ulcers. 12. DVT prophylaxis. We will maintain the patient on Xarelto 20 mg orally once every day. 13. GI prophylaxis. We will maintain patient on Protonix 40 mg once every day. 14. Admit to inpatient. Estimated length of stay 2 midnights. 15. Patient is full code. DISCHARGE PLAN Return to [facility]. Impression and plan of care have been directed as dictated by the signing physic ian. Arlene Darnell nurse practitioner acting as scribe for signing physician. Past Medical History Past Medical History: Deep Vein Thrombosis (DVT), Fibromyalgia, GI Bleed, Hypertension, Renal Disease, Rheumatoid Arthritis (RA), Skin Disorder, Thyroid Disorder Additional Past Medical History / Comment(s): Hx bleeding stomach ulcer. CKD, stage II; "Leaky bladder," "poor circulation," current Wound rt buttock, with wound vac, wound left lower leg, Hx Rt hip fx, no surg. Debilitated D/T RA, needs mechanical lift History of Any Multi-Drug Resistant Organisms: MRSA, VRE Date of last positivie culture/infection: 02/17/20 VRE 12/08/19 MRSA MDRO Source:: unknown Past Surgical History: Appendectomy, Cholecystectomy, Tonsillectomy Additional Past Surgical History / Comment(s): Lt foot wound debridement. Nodule exc from thyroid. Sinus surgery. surgical excision, debridment of sacrum w/ wound VAC placement on 08/05/15 and sx done(flap), developed pin hole leak - had 2nd sx to repair. Debridement wound care to RLE wound on 08/21/15. Past Anesthesia/Blood Transfusion Reactions: No Reported Reaction Additional Past Anesthesia/Blood Transfusion Reaction / Comment(s): Pt has received blood in past without reaction. Past Psychological History: No Psychological Hx Reported Smoking Status: Never smoker - Past Family History Mother Family Medical History: AFIB, Cancer Additional Family Medical History / Comment(s): skin cancer Father Family Medical History: Cancer, Liver Disease, Rheumatoid Arthritis (RA) Additional Family Medical History / Comment(s): Leukemia. at age 72 of liver problem. Medications and Allergies Home Medications Medication Instructions Recorded Confirmed Type Levothyroxine Sodium [Synthroid] 200 mcg PO DAILY@0600 08/26/17 01/28/21 History Rivaroxaban [Xarelto] 20 mg PO DAILY@0800 07/10/19 01/28/21 History Ferrous Sulfate [Feosol] 325 mg PO BID@0800,1700 09/03/19 01/28/21 History Leflunomide [Arava] 20 mg PO DAILY@0800 10/10/19 01/28/21 History Acetaminophen Tab [Tylenol] 650 mg PO Q6HR PRN tab 02/26/20 01/28/21 Rx Ascorbic Acid [Vitamin C] 500 mg PO DAILY@0800 01/15/21 01/28/21 History Furosemide [Lasix] 40 mg PO BID@0800,1700 01/15/21 01/28/21 History HYDROcodone/APAP 10-325MG [[place] 1 tab PO Q8H PRN 01/15/21 01/28/21 History 10-325] Lactobacillus Acidophilus 1 cap PO DAILY@0800 01/15/21 01/28/21 History [Acidophilus Probiotic] Lidocaine 5% Oint [Xylocaine 5% 1 applic TOPICAL DIRECTED 01/15/21 01/28/21 History Oint] Loperamide HCl [Loperamide] 2 mg PO QID PRN 01/15/21 01/28/21 History Loratadine [Claritin] 10 mg PO DAILY@0800 01/15/21 01/28/21 History Ondansetron [Zofran] 4 mg PO Q8HR PRN 01/15/21 01/28/21 History Potassium Chloride [Klor-Con 20] 20 meq PO DAILY@0800 01/15/21 01/28/21 History bisacodyL [Dulcolax] 10 mg RECTAL DAILY PRN 01/15/21 01/28/21 History predniSONE 4 mg PO DAILY@0800 01/15/21 01/28/21 History Cefepime [Maxipime] 1 gm IV DIRECTED 01/28/21 01/28/21 History Collagenase [Santyl] 1 applic TOPICAL DAILY 01/28/21 01/28/21 History HYDROcodone/APAP 10-325MG [[place] 1 tab PO DAILY@0800 01/28/21 01/28/21 History 10-325] Hydrocortisone Cream 1 applic TOPICAL BID PRN 01/28/21 01/28/21 History [Hydrocortisone 1% Cream] Liquacel 30 ml PO TID@0800,1200,1700 01/28/21 01/28/21 History Mag Hydrox/Aluminum Hyd/Simeth 10 ml PO Q4H PRN 01/28/21 01/28/21 History [Mylanta Maximum Strength Liq] Magnesium Hydroxide [Milk of 7,200 mg PO DAILY PRN 01/28/21 01/28/21 History Magnesia Concentrate] Na Phos,M-B/Na Phos,Di-Ba [Fleet 133 ml RECTAL DAILY PRN 01/28/21 01/28/21 H istory Adult] Pregabalin [Lyrica] 100 mg PO BID@0800,1700 01/28/21 01/28/21 History Sucralfate [Carafate] 1 gm PO TID@0600,1100,1600 01/28/21 01/28/21 History diphenhydrAMINE [Benadryl] 25 mg PO Q6H PRN 01/28/21 01/28/21 History fentaNYL 25MCG/HR PATCH [Duragesic 1 patch TRANSDERM Q72H 01/28/21 01/28/21 History 25MCG/HR] Allergies Allergy/AdvReac Type Severity Reaction Status Date / Time ceftriaxone [From Rocephin] Allergy Rash/Hives Verified 01/28/21 19:21 Penicillins Allergy Rash/Hives Verified 01/28/21 19:21 POSITIVE TB REACTOR Allergy Unknown Uncoded 01/15/21 15:51 Physical Exam Vitals: Vital Signs Temp Pulse Resp BP Pulse Ox 01/29/21 06:00 79 17 108/60 91 L 01/29/21 03:24 71 17 102/61 100 01/28/21 23:56 87 17 99/54 98 01/28/21 19:08 90 18 102/65 97 01/28/21 18:06 90 18 96/67 96 01/28/21 16:00 97.8 F 90 18 103/60 98 01/28/21 14:24 98.2 F 89 18 119/88 94 L Results CBC & Chem 7: 01/28/21 15:38 01/28/21 15:38 Labs: Abnormal Lab Results - Last 24 Hours (Table) 01/28/21 01/28/21 01/28/21 Range/Units 15:38 15:38 16:12 RDW 15.6 H (11.5-15.5) % Neutrophils # 8.6 H (1.3-7.7) k/uL Lymphocytes # 0.5 L (1.0-4.8) k/uL Chloride 94 L (98-107) mmol/L Carbon Dioxide 39 H (22-30) mmol/L BUN 50 H (7-17) mg/dL Glucose 165 H (74-99) mg/dL Urine Appearance Cloudy H (Clear) Ur Leukocyte Esterase Large H (Negative) Urine WBC 63 H (0-5) /hpf Urine WBC Clumps Moderate H (None) /hpf Urine Bacteria Rare H (None) /hpf Hyaline Casts 9 H (0-2) /lpf Urine Mucus Rare H (None) /hpf Urine Yeast (Budding) Many H (None) /hpf Microbiology - Last 24 Hours (Table) 01/28/21 16:12 Urine Culture - Preliminary Urine,Voided
--- NOTE | 2021-01-29 15:49 | P.PN ---
Progress Note - Text Progress Note Date: 01/29/21 patient seen at bedside, history given that picc line was not functioning catheter flushed with 10cc without difficulty sterile saline with sterile technique. May treat with cathflo or change line if aspiration is required.
[2021-01-29] MEDS: FERROUS SULFATE 325 MG TAB PO SCH (16:28)
[2021-01-29] MEDS: PREGABALIN 100 MG CAP PO SCH (16:28)
[2021-01-30] MEDS: HYDROCORTISONE SUCCINATE 100 MG/2 ML VIAL IV SCH ×3 (00:18→17:19)
[2021-01-30] MEDS: AZTREONAM 2 GM in SODIUM CHLORIDE 0.9% 100 ML IVPB SCH ×3 (00:18→21:15)
[2021-01-30] MEDS: SUCRALFATE 1 GM TAB PO SCH ×3 (05:42→17:19)
[2021-01-30] MEDS: LEVOTHYROXINE 100 MCG TAB PO SCH (05:43)
--- NOTE | 2021-01-30 06:36 | CONS ---
CONSULTATION DATE OF SERVICE: 01/29/2021 REASON FOR CONSULTATION: Sacral and left leg wound, question of cellulitis and UTI. HISTORY OF PRESENT ILLNESS: The patient is a 70-year-old female with a past medical history significant for chronic nonhealing wound to the sacral area, also with a wound to the left leg in this patient who is under the care of Dr. Medina at [facility]. The patient apparently recently has been treated with IV antibiotic therapy. Concerning for possible secondary infection on this wound and was on Invanz and cefepime which was subsequently discontinued because the patient developed a rash. The patient has now been brought to the hospital yesterday afternoon for evaluation of weakness and more sleepy than usual. The patient denies having any fever or any chills. The patient denies having any headache. No chest pain, shortness of breath or cough. No abdominal pain or diarrhea. The patient denies any worsening pain to the sacral and left leg wound area. With these symptoms, the patient was evaluated by the ER physician. On arrival to the ER, the patient was afebrile. The patient did have a normal white count with left shift. BUN was elevated, creatinine 0.91, and electrolytes were normal. Liver enzymes are normal. The patient did have positive UA with large leukocyte esterase, moderate WBC with moderate clumps. Culture now showing Gram-negative bacilli. The patient did have a chest x-ray that shows pleural thickening and associated atelectasis, cardiomegaly and no evidence of any pneumonia. Infectious Disease was consulted for further management of antibiotic therapy. REVIEW OF SYSTEMS: Positive points have been mentioned in HPI. Rest of the systems are negative. PAST MEDICAL HISTORY: DVT, fibromyalgia, GI bleed, hypertension, renal insufficiency, rheumatoid arthritis, hypothyroidism, patient has stage IV sacral pressure ulcer and bilateral lower extremity stage 3 pressure ulcer and previous history of sacral osteomyelitis. PAST SURGICAL HISTORY: Appendectomy, cholecystectomy, tonsillectomy, debridement of the sacral and left leg wound. SOCIAL HISTORY: No history of smoking, drinking or drug use. A longterm resident. FAMILY HISTORY: Mother with history of atrial fibrillation and skin cancer. Father history of leukemia and rheumatoid arthritis. ALLERGIES: PENICILLIN, CEFTRIAXONE AND CEFEPIME. MEDICATIONS: The patient is currently on vancomycin, pharmacy to dose. She is on Tylenol, [place], Maalox, vitamin C, Dulcolax, fentanyl, Benadryl, Duragesic patch, Solu-Cortef, Lactinex, Synthroid, Imodium, Claritin, magnesia, Zofran, Protonix, Lyrica. PHYSICAL EXAMINATION: VITAL SIGNS: Blood pressure is 115/75, pulse of 93, temperature 98.3, she is 98% on 2 L nasal cannula. GENERAL DESCRIPTION: Patient is an elderly female lying in bed in no distress. No tachypnea or accessory muscles of respiration use. HEENT: Examination shows no pallor or scleral icterus. Oral mucous membrane is dry. NECK: Trachea central, no thyromegaly. LUNGS: Unlabored breathing, clear to auscultation anteriorly. No wheeze or crackle. HEART: S1-S2, regular rate and rhythm. ABDOMEN: Soft, no tenderness. No guarding or rigidity. EXTREMITIES: Left leg did have a stage 3 pressure ulcer. Wound covered with Hydrofera Blue dressing. Wound base with minimal slough. No sign of surrounding swelling, redness, no drainage. Examination of sacral wound stage 4 ulcer, however, the wound base looks clean. The sponge was still inside the wound VAC even though the wound VAC was discontinued. No surrounding swelling, redness or any drainage NEUROLOGICAL: Patient is awake, alert, oriented times three. Mood and affect normal. LABS: Hemoglobin is 12.2 with white count 9.6, BUN of 15, creatinine 0.91. Urine is positive. DIAGNOSTIC IMPRESSION AND PLAN: 1. Patient presented to hospital with weakness which is likely multifactorial in this patient with possible component of dehydration plus-minus component of urinary tract infection. The patient currently does have sacral as well as left leg wound. However, the wound does not look infected with no slough tissue and no surrounding cellulitis. Clinically doubt responsible for her symptomatology. 2. Patient did have multiple antibiotic allergies that will limit the number of antibiotics safe to use. PLAN: 1. We will start the patient on Azactam 2 g q.8h to cover for possible urinary tract infection with urine showing a Gram-negative. 2. Local wound care to the left leg wound with either Hydrofera Blue or with Santyl. 3. Local wound care to the sacral wound with wound VAC with continuous pressure of 125 mmHg. 4. We will follow her clinical condition and further adjust medication if needed. Thank you for this consultation. Will follow this patient along with you. MMODL / IJN: [id number] /
[2021-01-30 08:36] LABS: African American GFR (CKD) 79 (>60 ml/min/1.73 sqM); Non-African American GFR(CKD) 68 (>60 ml/min/1.73 sqM)
[2021-01-30 08:49] LABS: HCT 33.2 % (34.0-46.0); HGB 10.2 gm/dL (11.4-16.0); Hypochromasia Marked; MCH 28.4 pg (25.0-35.0); MCHC 30.7 g/dL (31.0-37.0); MCV 92.5 fL (80.0-100.0); Mean Platelet Volume 7.7; Platelet Count 280 k/uL (150-450); RBC 3.59 m/uL (3.80-5.40); RDW 15.8 % (11.5-15.5); WBC 5.5 k/uL (3.8-10.6)
[2021-01-30 09:03] LABS: ALT 9 U/L (4-34); AST 13 U/L (14-36); Albumin 2.8 g/dL (3.5-5.0); Albumin/Globulin Ratio 1.1; Alkaline Phosphatase 82 U/L (38-126); Blood Urea Nitrogen 38 mg/dL (7-17); Calcium 9.6 mg/dL (8.4-10.2); Chloride 101 mmol/L (98-107); Globulin 2.5 g/dL; Glucose 123 mg/dL (74-99); Potassium 3.5 mmol/L (3.5-5.1); Sodium 143 mmol/L (137-145); Total Bilirubin 0.1 mg/dL (0.2-1.3); Total Protein 5.3 g/dL (6.3-8.2)
[2021-01-30 09:10] LABS: Anion Gap 4 mmol/L; Carbon Dioxide 38 mmol/L (22-30)
[2021-01-30] MEDS: PANTOPRAZOLE 40 MG TABLET PO SCH (09:23)
[2021-01-30] MEDS: FERROUS SULFATE 325 MG TAB PO SCH ×2 (09:23→17:20)
[2021-01-30] MEDS: ASCORBIC ACID 500 MG TAB PO SCH (09:23)
[2021-01-30] MEDS: PREGABALIN 100 MG CAP PO SCH ×2 (09:23→17:20)
[2021-01-30] MEDS: HYDROcodone/APAP 10-325MG 1 EACH TAB PO SCH (09:23)
[2021-01-30] MEDS: RIVAROXABAN 20 MG TAB PO SCH (09:24)
[2021-01-30] MEDS: LACTOBACILLUS ACIDOPH & BULGAR 1 EACH PACKET PO SCH (09:24)
[2021-01-30] MEDS: LORATADINE 10 MG TAB PO SCH (09:24)
[2021-01-30] MEDS: LEFLUNOMIDE 20 MG TAB PO SCH (09:24)
[2021-01-30] MEDS: SODIUM CHLORIDE 0.9% 1,000 ML IV SCH (09:28)
[2021-01-30] MEDS: VANCOMYCIN 2,000 MG in SODIUM CHLORIDE 0.9% 500 ML 500 ML IVPB SCH (09:28)
[2021-01-30] MEDS: HYDROcodone/APAP 10-325MG 1 EACH TAB PO PRN (12:08)
[2021-01-30] MEDS: COLLAGENASE 250 UNIT/GM OINTMENT 30 GM TUBE TOPICAL SCH (13:30)
[2021-01-30 13:59] VITALS: BMI 40.2
--- NOTE | 2021-01-30 14:49 | P.PN ---
Subjective Progress Note Date: 01/30/21 HISTORY OF PRESENT ILLNESS This is a 70-year-old female patient of Dr. Moyer with a previous medical history significant for rheumatoid arthritis with significant deformit ies, currently wheelchair bound/bedbound, nonhealing wounds for bilateral lower extremities as well as stage IV sacral decubitus ulcer for which she has been treated with a wound VAC, she has been following with the wound healing Center at [facility] with Dr. Medina at [facility] on a weekly basis. She was started on ertapenem on January 23 run for 14 days, transition on January 27 to cefepime 1 g every 12 hour but appeared the patient had a reaction and this was held and patient was started on IV Solu-Medrol. Patient was having change in mental status, low pulse ox and not eating and [facility] was advised transport the patient to [facility] emergency center for further evaluation and treatment. Patient is afebrile, heart rate in the 70s and 80s, blood pressure 108/60, pulse ox 91% on room air. WBC 9.6, hemoglobin 12.3, platelet count 345. INR 1.1. Sodium 140, potassium 4.9, chloride 94, CO2 39, BUN 50 and creatinine 0.91. Blood sugar 165. Lactic acid 1.3. Calcium 9.7. Magnesium 2.3. Liver function tests are normal. Troponin negative. Urinalysis cloudy, leukoesterase large, WBC 63, WBC clumps moderate, bacteria rare. Chest x-ray reveals pleural thickening and associated atelectasis, possible scarring, rotated exam. Cardiomegaly. Possible underlying pulmonary artery hypertension. Patient to be admitted to the MedSurg floor, consult with Dr. Rangel, patient is continued on vancomycin for now. Urine culture and blood cultures have been obtained. 01/30: Patient's mental status is improved from yesterday. She has been afebrile, heart rate 91, blood pressure 94/60, pulse ox 95% on 2 L nasal cannula. Patient denies having any chest pain. She states she ate some but has decreased appetite. Routine supplement added. She is been seen by Dr. Rangel and is currently on Azactam and vancomycin. Urine culture and wound culture are in progress. Repeat blood work reveals WBC 5.5, hemoglobin 10.2, platelet count 280. Sodium 143, potassium 3.5, chloride 101, CO2 38, BUN 38 creatinine 0.86. Blood sugar 123. REVIEW OF SYSTEMS Constitutional: No fever, no chills, no night sweats. No weight change. Reported weakness, reported fatigue reported lethargy. Reported daytime sleepiness. EENT: No headache. No blurred vision or double vision, no loss of vision. No loss of Hearing, no ringing in the ears, no dizziness. No nasal drainage or congestion. No epistaxis. No sore throat. Lungs: No shortness of breath, cough, no sputum production. No wheezing. Cardiovascular: No chest pain, no lower extremity edema. No palpitations. No paroxysmal nocturnal dyspnea. No orthopnea. No lightheadedness or dizziness. No syncopal episodes. Abdominal: No abdominal pain. No nausea, vomiting. No diarrhea. No constipation. No bloody or tarry stools.. Reported loss of appetite. Genitourinary: No dysuria, increased frequency, urgency. No urinary retention. Musculoskeletal: No myalgias. No muscle weakness, no gait dysfunction, no frequent falls. No back pain. No neck pain. Integumentary: Noted wounds, no lesions. No rash or pruritus. No unusual bruising. No change in hair or nails. Neurologic: No aphasia. No facial droop. Noted change in mentation improved. No head injury. No headache. No paralysis. No paresthesia. Psychiatric: No depression. No anxiety. No mood swings. Endocrine: No abnormal blood sugars. No weight change. No excessive sweating or thirst. No cold intolerance. PHYSICAL EXAMINATION Gen: This is is a morbidly obese 70-year-old white female. She is resting on the ER stretcher. She appears to be comfortable. Noted mild confusion from her baseline. HEENT: Head is atraumatic, normocephalic. Pupils equal, round. Sclerae is anicteric. NECK: Supple. No JVD. No lymphadenopathy. No thyromegaly. LUNGS: Clear to auscultation. No wheezes or rhonchi. No intercostal retractions. HEART: First heart sound is depressed, second heart sounds normal, tachycardic, there is systolic murmur 2/6. Left sternal border. ABDOMEN: Soft. Bowel sounds are present. No masses. No tenderness. EXTREMITIES: No pedal edema. No calf tenderness. Wounds to the coccyx area, wounds to the bilateral lower extremities with purulent drainage and foul smell. NEUROLOGICAL: Patient is awake, alert and oriented 3. Generalized weakness. ASSESSMENT AND PLAN 1. Sepsis secondary to bilateral lower extremity nonhealing wounds and coccyx wound, acute urinary tract infection. Consult with Dr. Rangel. Continue vancomycin and Azactam. 2. Bilateral nonhealing wounds to the lower extremities and chronic sacral decubitus. Patient has been under the care of the wound center and Dr. Medina at [facility]. 3. Possible ALLERGIC reaction to cefepime at [facility]. Cefepime was discontinued and patient placed on IV Solu-Medrol. Patient designated as ALLERGY to cefepime. 4. Rheumatoid arthritis with chronic pain, significant deformities, wheelchair bound. Continue fentanyl patch 25 g per hour every 72 hours, [place] 10 one every 8 hours as needed and 1 daily, Lyrica 100 mg twice daily, Araiva 20 mg daily. 5. Adrenal insufficiency secondary to oil heaterman use of steroids and sepsis. Patient started on Solu-Cortef 50 mg IV every 8 hours. Hold oral prednisone. 6. Metabolic encephalopathy secondary to sepsis. Treat underlying cause. 7. Anemia of chronic illness. Continue ferrous sulfate 325 mg twice daily. 8. History of DVT. Xarelto 20 mg daily. 9. Hypothyroidism. Continue levothyroxine 200 g daily. 10. Peripheral neuropathy. Continue patient on Lyrica 100 mg orally twice every day. 11. Chronic Charles catheter. Due to nonhealing decubitus ulcers. 12. DVT prophylaxis. We will maintain the patient on Xarelto 20 mg orally once every day. 13. GI prophylaxis. We will maintain patient on Protonix 40 mg once every day. 14. Admit to inpatient. Estimated length of stay 2 midnights. 15. Patient is full code. DISCHARGE PLAN Return to [facility]. Impression and plan of care have been directed as dictated by the signing physician. Arlene Darnell nurse practitioner acting as scribe for signing physician. Objective - Vital Signs Vital signs: Vital Signs Temp 97.8 F 01/30/21 07:28 Pulse 91 01/30/21 07:47 Resp 16 01/30/21 07:47 BP 94/60 01/30/21 07:28 Pulse Ox 95 01/30/21 07:28 Intake & Output 01/29/21 01/30/21 01/30/21 18:59 06:59 18:59 Intake Total 540 540 Output Total 1300 800 Balance -760 -260 Intake: Oral 540 540 Output: Urine 1300 800 Uretheral (Charles) 700 Other: Voiding Method Indwelling Catheter Indwelling Catheter Indwelling Catheter # Bowel Movements 0 - Labs CBC & Chem 7: 01/30/21 07:46 01/30/21 07:46 Labs: Microbiology - Last 24 Hours (Table) 01/28/21 16:12 Urine Culture - Preliminary Urine,Voided Gram Neg Bacilli 01/28/21 18:05 Blood Culture - Preliminary Blood No Growth after 24 hours 01/28/21 17:50 Blood Culture - Preliminary Blood No Growth after 24 hours
[2021-01-31] MEDS: HYDROCORTISONE SUCCINATE 100 MG/2 ML VIAL IV SCH ×4 (04:05→23:34)
[2021-01-31] MEDS: AZTREONAM 2 GM in SODIUM CHLORIDE 0.9% 100 ML IVPB SCH ×2 (04:09→11:40)
[2021-01-31] MEDS: SUCRALFATE 1 GM TAB PO SCH ×3 (05:22→16:37)
[2021-01-31] MEDS: LEVOTHYROXINE 100 MCG TAB PO SCH (05:22)
--- NOTE | 2021-01-31 05:43 | PN ---
PROGRESS NOTE DATE OF SERVICE: 01/30/2021 REASON FOR FOLLOWUP: 1. Stage IV sacral pressure ulcer. 2. Left leg stage III pressure ulcer. 3. UTI. INTERVAL HISTORY: Patient is afebrile. The patient is more awake and alert. The patient is breathing comfortably. The patient denies having any chest pain or shortness of breath, cough, abdominal pain or diarrhea. PHYSICAL EXAMINATION: Blood pressure 110/56, pulse of 89, temperature of 98, she is 95% on 2 L nasal cannula. General description is an elderly female lying in no distress. Respiratory system: Unlabored breathing, clear to auscultation anteriorly. Heart S1, S2. Regular rate and rhythm. Abdomen is soft, no tenderness. LABS: Urine showing gram-negative. Blood culture has been negative. IMPRESSION/PLAN: 1. Patient admitted to the hospital with weakness, no energy, concerning for a Gram- negative urinary tract infection. This patient does have multiple antibiotic allergies. To continue with Azactam while waiting for the culture to finalize. 2. Patient with sacral pressure ulcer. Local wound care with wound VAC. 3. Left leg pressure ulcer. Local wound care with Hydrofera Blue versus [place]. MMODL / IJN: [id number] /
[2021-01-31] MEDS: LACTOBACILLUS ACIDOPH & BULGAR 1 EACH PACKET PO SCH (07:55)
[2021-01-31] MEDS: LORATADINE 10 MG TAB PO SCH (07:56)
[2021-01-31] MEDS: PREGABALIN 100 MG CAP PO SCH ×2 (07:57→16:37)
[2021-01-31] MEDS: ASCORBIC ACID 500 MG TAB PO SCH (07:58)
[2021-01-31] MEDS: HYDROcodone/APAP 10-325MG 1 EACH TAB PO SCH (08:00)
[2021-01-31] MEDS: PANTOPRAZOLE 40 MG TABLET PO SCH (08:05)
[2021-01-31] MEDS: FERROUS SULFATE 325 MG TAB PO SCH ×2 (08:06→16:37)
[2021-01-31] MEDS: LEFLUNOMIDE 20 MG TAB PO SCH (08:07)
[2021-01-31] MEDS: RIVAROXABAN 20 MG TAB PO SCH (08:08)
[2021-01-31] MEDS: COLLAGENASE 250 UNIT/GM OINTMENT 30 GM TUBE TOPICAL SCH (08:09)
[2021-01-31 08:13] LABS: African American GFR (CKD) >90 (>60 ml/min/1.73 sqM); Non-African American GFR(CKD) 80 (>60 ml/min/1.73 sqM)
[2021-01-31 08:31] LABS: ALT 8 U/L (4-34); AST 15 U/L (14-36); Albumin 2.8 g/dL (3.5-5.0); Albumin/Globulin Ratio 1.2; Alkaline Phosphatase 81 U/L (38-126); Anion Gap 3 mmol/L; Blood Urea Nitrogen 40 mg/dL (7-17); Calcium 9.7 mg/dL (8.4-10.2); Carbon Dioxide 36 mmol/L (22-30); Chloride 101 mmol/L (98-107); Globulin 2.4 g/dL; Glucose 135 mg/dL (74-99); Potassium 3.8 mmol/L (3.5-5.1); Sodium 140 mmol/L (137-145); Total Bilirubin <0.1 mg/dL (0.2-1.3); Total Protein 5.2 g/dL (6.3-8.2)
[2021-01-31] MEDS: FUROSEMIDE 10 MG/ML 4 ML VIAL IV SCH (08:37)
[2021-01-31] MEDS: SODIUM CHLORIDE 0.9% 1,000 ML IV SCH (08:38)
[2021-01-31] MEDS: VANCOMYCIN 2,000 MG in SODIUM CHLORIDE 0.9% 500 ML 500 ML IVPB SCH (08:38)
[2021-01-31 08:49] LABS: HCT 32.8 % (34.0-46.0); HGB 9.9 gm/dL (11.4-16.0); Hypochromasia Marked; MCH 28.3 pg (25.0-35.0); MCHC 30.3 g/dL (31.0-37.0); MCV 93.3 fL (80.0-100.0); Platelet Count 262 k/uL (150-450); RBC 3.51 m/uL (3.80-5.40); RDW 15.9 % (11.5-15.5); WBC 5.6 k/uL (3.8-10.6)
--- NOTE | 2021-01-31 11:55 | P.PN ---
Subjective Progress Note Date: 01/31/21 HISTORY OF PRESENT ILLNESS This is a 70-year-old female patient of Dr. Moyer with a previous medical history significant for rheumatoid arthritis with significant deformit ies, currently wheelchair bound/bedbound, nonhealing wounds for bilateral lower extremities as well as stage IV sacral decubitus ulcer for which she has been treated with a wound VAC, she has been following with the wound healing Center at [facility] with Dr. Medina at [facility] on a weekly basis. She was started on ertapenem on January 23 run for 14 days, transition on January 27 to cefepime 1 g every 12 hour but appeared the patient had a reaction and this was held and patient was started on IV Solu-Medrol. Patient was having change in mental status, low pulse ox and not eating and [facility] was advised transport the patient to [facility] emergency center for further evaluation and treatment. Patient is afebrile, heart rate in the 70s and 80s, blood pressure 108/60, pulse ox 91% on room air. WBC 9.6, hemoglobin 12.3, platelet count 345. INR 1.1. Sodium 140, potassium 4.9, chloride 94, CO2 39, BUN 50 and creatinine 0.91. Blood sugar 165. Lactic acid 1.3. Calcium 9.7. Magnesium 2.3. Liver function tests are normal. Troponin negative. Urinalysis cloudy, leukoesterase large, WBC 63, WBC clumps moderate, bacteria rare. Chest x-ray reveals pleural thickening and associated atelectasis, possible scarring, rotated exam. Cardiomegaly. Possible underlying pulmonary artery hypertension. Patient to be admitted to the MedSurg floor, consult with Dr. Rangel, patient is continued on vancomycin for now. Urine culture and blood cultures have been obtained. 01/30: Patient's mental status is improved from yesterday. She has been afebrile, heart rate 91, blood pressure 94/60, pulse ox 95% on 2 L nasal cannula. Patient denies having any chest pain. She states she ate some but has decreased appetite. Routine supplement added. She is been seen by Dr. Rangel and is currently on Azactam and vancomycin. Urine culture and wound culture are in progress. Repeat blood work reveals WBC 5.5, hemoglobin 10.2, platelet count 280. Sodium 143, potassium 3.5, chloride 101, CO2 38, BUN 38 creatinine 0.86. Blood sugar 123. 7/9: Patient has been afebrile, heart rate 83, blood pressure 110/65, pulse ox 94% on 2 L nasal cannula. Patient has been continued on Azactam and vancomycin. Dr. Rangel is following the patient. Repeat blood work today reveals WBC 5.6, hemoglobin 9.9, platelet count 262. Sodium 140, potassium 3.8, chloride 101, CO2 36, BUN 40 creatinine 0.75. Blood sugar 135. Urine culture is Pseudomonas multi drug-resistant with susceptibility to only amikacin, gentamicin and tobramycin. Blood culture is no growth after 48 hours. Repeat blood work ordered for tomorrow. REVIEW OF SYSTEMS Constitutional: No fever, no chills, no night sweats. No weight change. Reported weakness, reported fatigue reported lethargy. Reported daytime sleepiness. EENT: No headache. No blurred vision or double vision, no loss of vision. No loss of Hearing, no ringing in the ears, no dizziness. No nasal drainage or congestion. No epistaxis. No sore throat. Lungs: No shortness of breath, cough, no sputum production. No wheezing. Cardiovascular: No chest pain, no lower extremity edema. No palpitations. No paroxysmal nocturnal dyspnea. No orthopnea. No lightheadedness or dizziness. No syncopal episodes. Abdominal: No abdominal pain. No nausea, vomiting. No diarrhea. No constipation. No bloody or tarry stools.. Reported loss of appetite. Genitourinary: No dysuria, increased frequency, urgency. No urinary retention. Musculoskeletal: No myalgias. No muscle weakness, no gait dysfunction, no frequent falls. No back pain. No neck pain. Integumentary: Noted wounds, no lesions. No rash or pruritus. No unusual bruising. No change in hair or nails. Neurologic: No aphasia. No facial droop. Noted change in mentation improved. No head injury. No headache. No paralysis. No paresthesia. Psychiatric: No depression. No anxiety. No mood swings. Endocrine: No abnormal blood sugars. No weight change. No excessive sweating or thirst. No cold intolerance. PHYSICAL EXAMINATION Gen: This is is a morbidly obese 70-year-old white female. She is resting on the ER stretcher. She appears to be comfortable. Noted mild confusion from her baseline. HEENT: Head is atraumatic, normocephalic. Pupils equal, round. Sclerae is anicteric. NECK: Supple. No JVD. No lymphadenopathy. No thyromegaly. LUNGS: Clear to auscultation. No wheezes or rhonchi. No intercostal retractions. HEART: First heart sound is depressed, second heart sounds normal, tachycardic, there is systolic murmur 2/6. Left sternal border. ABDOMEN: Soft. Bowel sounds are present. No masses. No tenderness. EXTREMITIES: No pedal edema. No calf tenderness. Wounds to the coccyx area, wounds to the bilateral lower extremities with purulent drainage and foul smell. NEUROLOGICAL: Patient is awake, alert and oriented 3. Generalized weakness. ASSESSMENT AND PLAN 1. Sepsis secondary to bilateral lower extremity nonhealing wounds and coccyx wound, acute Pseudomonas urinary tract infection. Consult with Dr. Rangel. Continue vancomycin and Azactam. 2. Bilateral nonhealing wounds to the lower extremities and chronic sacral decubitus. Patient has been under the care of the wound center and Dr. Medina at [facility]. 3. Possible ALLERGIC reaction to cefepime at [facility]. Cefepime was discontinued and patient placed on IV Solu-Medrol. Patient designated as ALLERGY to cefepime. 4. Rheumatoid arthritis with chronic pain, significant deformities, wheelchair bound. Continue fentanyl patch 25 g per hour every 72 hours, [place] 10 one every 8 hours as needed and 1 daily, Lyrica 100 mg twice daily, Araiva 20 mg daily. 5. Adrenal insufficiency secondary to hand tube bender use of steroids and sepsis. Patient started on Solu-Cortef 50 mg IV every 8 hours. Hold oral prednisone. 6. Metabolic encephalopathy secondary to sepsis, improved. Treat underlying cause. 7. Anemia of chronic illness. Continue ferrous sulfate 325 mg twice daily. 8. History of DVT. Xarelto 20 mg daily. 9. Hypothyroidism. Continue levothyroxine 200 g daily. 10. Peripheral neuropathy. Continue patient on Lyrica 100 mg orally twice every day. 11. Chronic Charles catheter. Due to nonhealing decubitus ulcers. 12. DVT prophylaxis. We will maintain the patient on Xarelto 20 mg orally once every day. 13. GI prophylaxis. We will maintain patient on Protonix 40 mg once every day. 14. Patient is full code. DISCHARGE PLAN Return to [facility] on Wednesday. Impression and plan of care have been directed as dictated by the signing physician. Arlene Darnell nurse practitioner acting as scribe for signing physician. Objective - Vital Signs Vital signs: Vital Signs Temp 98.2 F 01/31/21 07:38 Pulse 83 01/31/21 07:38 Resp 16 01/31/21 07:38 BP 110/65 01/31/21 07:38 Pulse Ox 94 L 01/31/21 07:38 Intake & Output 01/30/21 01/31/21 01/31/21 18:59 06:59 18:59 Output Total 750 600 Balance -750 -600 Weight 123.604 kg Output: Urine 750 600 Other: Voiding Method Indwelling Catheter Indwelling Catheter # Bowel Movements 2 - Labs CBC & Chem 7: 01/31/21 06:45 01/31/21 07:12 Labs: Abnormal Lab Results - Last 24 Hours (Table) 01/30/21 01/30/21 Range/Units 07:46 07:46 RBC 3.59 L (3.80-5.40) m/uL Hgb 10.2 L (11.4-16.0) gm/dL Hct 33.2 L (34.0-46.0) % MCHC 30.7 L (31.0-37.0) g/dL RDW 15.8 H (11.5-15.5) % Carbon Dioxide 38 H (22-30) mmol/L BUN 38 H (7-17) mg/dL Glucose 123 H (74-99) mg/dL Total Bilirubin 0.1 L (0.2-1.3) mg/dL AST 13 L (14-36) U/L Total Protein 5.3 L (6.3-8.2) g/dL Albumin 2.8 L (3.5-5.0) g/dL Microbiology - Last 24 Hours (Table) 01/28/21 16:12 Urine Culture - Final Urine,Voided Pseudomonas aeruginosa 01/28/21 18:05 Blood Culture - Preliminary Blood No Growth after 48 hours 01/28/21 17:50 Blood Culture - Preliminary Blood No Growth after 48 hours
[2021-01-31 17:47] LABS: Amorphous Sediment,Urine Rare /hpf; Appearance,Urine Cloudy (Clear); Bilirubin,Urine Negative (Negative); Blood,Urine Negative (Negative); Budding Yeast,Urine Many /hpf; Color,Urine Yellow; Glucose,Urine (UA) Negative (Negative); Hyaline Casts,Urine 3 /lpf (0-2); Ketones,Urine Negative (Negative); Leukocyte Esterase,Urine Large (Negative); Mucus,Urine Occasional /hpf; Nitrite,Urine Negative (Negative); PH, Urine 5.5 (5.0-8.0); Protein,Urine Negative (Negative); Specific Gravity,Urine 1.016 (1.001-1.035); Squamous Epithelial Cell,Urine 2 /hpf (0-4); Urobilinogen,Urine <2.0 mg/dL (<2.0); WBC,Urine 124 /hpf (0-5)
[2021-02-01] MEDS: SUCRALFATE 1 GM TAB PO SCH ×3 (06:12→15:39)
[2021-02-01] MEDS: LEVOTHYROXINE 100 MCG TAB PO SCH (06:12)
[2021-02-01] MEDS ORDERED: VANCOMYCIN TROUGH DUE 1 EACH MISC MISCELLANE ONE (08:00)
[2021-02-01] MEDS: FERROUS SULFATE 325 MG TAB PO SCH ×2 (08:14→15:38)
[2021-02-01] MEDS: LORATADINE 10 MG TAB PO SCH (08:14)
[2021-02-01] MEDS: PREGABALIN 100 MG CAP PO SCH ×2 (08:14→15:39)
[2021-02-01] MEDS: ASCORBIC ACID 500 MG TAB PO SCH (08:14)
[2021-02-01] MEDS: HYDROcodone/APAP 10-325MG 1 EACH TAB PO SCH (08:15)
[2021-02-01] MEDS: RIVAROXABAN 20 MG TAB PO SCH (08:15)
[2021-02-01] MEDS: LEFLUNOMIDE 20 MG TAB PO SCH (08:15)
[2021-02-01] MEDS: HYDROCORTISONE SUCCINATE 100 MG/2 ML VIAL IV SCH ×3 (08:15→23:32)
[2021-02-01] MEDS: LACTOBACILLUS ACIDOPH & BULGAR 1 EACH PACKET PO SCH (08:17)
[2021-02-01] MEDS: PANTOPRAZOLE 40 MG TABLET PO SCH (08:19)
[2021-02-01] MEDS: COLLAGENASE 250 UNIT/GM OINTMENT 30 GM TUBE TOPICAL SCH (08:22)
[2021-02-01] MEDS: FUROSEMIDE 10 MG/ML 4 ML VIAL IV SCH (08:29)
[2021-02-01 08:43] LABS: HCT 35.6 % (34.0-46.0); Hypochromasia Moderate; MCH 28.5 pg (25.0-35.0); MCHC 30.9 g/dL (31.0-37.0); MCV 92.5 fL (80.0-100.0); Mean Platelet Volume 7.8; Platelet Count 255 k/uL (150-450); RBC 3.85 m/uL (3.80-5.40); RDW 15.5 % (11.5-15.5); WBC 6.5 k/uL (3.8-10.6)
[2021-02-01 08:57] LABS: ALT 17 U/L (4-34); AST 35 U/L (14-36); African American GFR (CKD) 80 (>60 ml/min/1.73 sqM); Albumin 3.2 g/dL (3.5-5.0); Albumin/Globulin Ratio 1.3; Alkaline Phosphatase 92 U/L (38-126); Anion Gap 4 mmol/L; Blood Urea Nitrogen 43 mg/dL (7-17); Calcium 9.9 mg/dL (8.4-10.2); Carbon Dioxide 39 mmol/L (22-30); Chloride 99 mmol/L (98-107); Globulin 2.5 g/dL; Glucose 168 mg/dL (74-99); Non-African American GFR(CKD) 69 (>60 ml/min/1.73 sqM); Potassium 3.6 mmol/L (3.5-5.1); Sodium 142 mmol/L (137-145); Total Bilirubin 0.2 mg/dL (0.2-1.3); Total Protein 5.7 g/dL (6.3-8.2)
--- NOTE | 2021-02-01 11:38 | PN ---
PROGRESS NOTE DATE OF SERVICE: 01/31/2021 REASON FOR FOLLOWUP: Multidrug-resistant Pseudomonas urinary tract infection. INTERVAL HISTORY: Patient is currently afebrile. The patient is breathing comfortably. Patient denies having any chest pain, no shortness of breath or cough. No abdominal pain or diarrhea. PHYSICAL EXAMINATION: Blood pressure 110/65 with a pulse of 83, temperature 98.2, she is 94% on 2 L nasal cannula. GENERAL DESCRIPTION: Is an elderly female lying in no distress. RESPIRATORY SYSTEM: Unlabored breathing, clear to auscultation anteriorly. HEART: S1, S2. Regular rate and rhythm. ABDOMEN: Soft, no tenderness. EXTREMITIES: No edema of the feet. LABS: Hemoglobin 9.1, white count of 5.6, BUN of 14, creatinine 0.75. Urine now showing a multi-drug resistant Pseudomonas, sensitive only to the quinolones. DIAGNOSTIC IMPRESSION AND PLAN: Patient in hospital, mental status changes, concerning for a urinary tract infection. The patient has shown clinical improvement. However, urine showing a multi-drug resistant pathogen, question for possible colonization of the true pathogen. We will repeat a urine culture. Discontinue Azactam and clinically suspicion low for ( ) and vancomycin will be discontinued as well and continue supportive care. MMODL / IJN: [id number] /
[2021-02-01] MEDS: SODIUM CHLORIDE 0.9% 1,000 ML IV SCH (11:51)
--- NOTE | 2021-02-01 12:24 | P.PN ---
Subjective Patient is admitted the for sepsis and nonhealing wounds of the coccyx found to have Pseudomonas. Patient's Pseudomonas is resistant to multiple antibodies patient is presently on vancomycin, Azetreoam was discontinued. Patient is not covered for pseudomonas with present antibiotics that the this is being managed by infectious disease and I believe this is Pseudomonas in the urine is considered as a colonizer. Constitutional: Denied any fatigue denied any fever. Cardio vascular: denied any chest pain, palpitations Gastrointestinal denied any nausea vomiting Pulmonary: Denied any shortness of breath cough Neurologic denied any new focal deficits All inpatient medications were reviewed and appropriate changes in these medications as dictated in the interval history and assessment and plan. PHYSICAL EXAMINATION: GENERAL: The patient is alert and oriented x3, not in any acute distress. Well developed, well nourished. HEENT: Pupils are round and equally reacting to light. EOMI. No scleral icterus. No conjunctival pallor. Normocephalic, atraumatic. No pharyngeal erythema. No thyromegaly. CARDIOVASCULAR: S1 and S2 present. No rubs, or gallops. Murmur and diuretic area PULMONARY: Chest is clear to auscultation, no wheezing or crackles. ABDOMEN: Soft, nontender, nondistended, normoactive bowel sounds. No palpable organomegaly. MUSCULOSKELETAL: No joint swelling or deformity. EXTREMITIES: No cyanosis, clubbing, or pedal edema. NEUROLOGICAL: Gross neurological examination did not reveal any focal deficits. SKIN: Stage IV sacral decubitus ulcer for which patient has wound VAC in place. -Assessment and plan Sepsis secondary to bilateral lower extremity nonhealing wounds and coccyx stage IV wound, urine analysis showing Pseudomonas: Patient is presently on vancomycin Pseudomonas is probably considered as contaminant or colonizer. Possibly of discharge on Wednesday. -Chronic pain -Drinker arthritis -Acute renal insufficiency for which patient is on systemic steroids -Metabolic encephalopathy secondary to sepsis -Anemia of chronic disease -History of DVT for which patient is on anticoagulation -Hypothyroidism -Peripheral neuropathy for which patient is on Lyrica twice a day which will be continued -Chronic Charles catheter for because of nonhealing decubitus ulcer Objective - Vital Signs Vital signs: Vital Signs Temp 97.9 F 02/01/21 07:57 Pulse 70 02/01/21 07:57 Resp 18 02/01/21 07:57 BP 97/59 02/01/21 07:57 Pulse Ox 95 02/01/21 07:57 Intake & Output 01/31/21 02/01/21 02/01/21 18:59 06:59 18:59 Intake Total 590 Output Total 1100 400 Balance -510 -400 Intake: Oral 590 Output: Urine 1100 400 Other: Voiding Method Indwelling Catheter Indwelling Catheter - Labs CBC & Chem 7: 02/01/21 07:52 02/01/21 07:52 Labs: Abnormal Lab Results - Last 24 Hours (Table) 01/31/21 02/01/21 02/01/21 Range/Units 17:07 07:52 07:52 Hgb 11.0 L (11.4-16.0) gm/dL MCHC 30.9 L (31.0-37.0) g/dL Carbon Dioxide 39 H (22-30) mmol/L BUN 43 H (7-17) mg/dL Glucose 168 H (74-99) mg/dL Total Protein 5.7 L (6.3-8.2) g/dL Albumin 3.2 L (3.5-5.0) g/dL Urine Appearance Cloudy H (Clear) Ur Leukocyte Esterase Large H (Negative) Urine WBC 124 H (0-5) /hpf Urine WBC Clumps Many H (None) /hpf Amorphous Sediment Rare H (None) /hpf Hyaline Casts 3 H (0-2) /lpf Urine Mucus Occasional H (None) /hpf Urine Yeast (Budding) Many H (None) /hpf Microbiology - Last 24 Hours (Table) 01/31/21 17:07 Urine Culture - Preliminary Urine,Voided 01/28/21 18:05 Blood Culture - Preliminary Blood No Growth after 72 hours 01/28/21 17:50 Blood Culture - Preliminary Blood No Growth after 72 hours
[2021-02-01] MEDS ORDERED: FLUCONAZOLE 100 MG TAB PO ONE (12:43)
--- NOTE | 2021-02-01 16:28 | PN ---
PROGRESS NOTE DATE OF SERVICE: 02/01/2021 REASON FOR FOLLOWUP: 1. Left leg and sacral pressure ulcer. 2. Positive urine culture. Concern possible for Charles colonization with cystitis. INTERVAL HISTORY: Patient is afebrile. The patient is feeling better. Breathing comfortably. Denies having any chest pain, shortness of breath. No abdominal pain, no diarrhea. PHYSICAL EXAMINATION: Blood pressure 97/59, pulse of 70, temperature 97.9. She is 95% 2 L nasal cannula. General description is an elderly female lying in bed, in no distress. Respiratory system: Unlabored breathing, clear to auscultation anteriorly. Heart: S1, S2. Regular. Abdomen: Soft, no tenderness. Extremities: Leg is currently dressed up. No obvious drainage on the dressing. LABS: Hemoglobin is 11.9, white count 6.5, BUN of 43, creatinine 0.5. Repeat urine is positive showing, yeast as well. DIAGNOSTIC IMPRESSION AND PLAN: 1. Patient admitted to the hospital with weakness, which is multifactorial with concern for UTI, possibly Charles colonization as urine did grow multi resistant Pseudomonas. We will go ahead and check her Charles catheter. Obtain urine culture from new Charles. Diflucan has been added for now. 2. Patient with sacral and left leg pressure. Local care to continue as ordered and monitor clinical course closely. MMODL / IJN: [id number] /
[2021-02-01 19:26] LABS: Amorphous Sediment,Urine Rare /hpf; Appearance,Urine Cloudy (Clear); Bilirubin,Urine Negative (Negative); Blood,Urine Trace (Negative); Budding Yeast,Urine Many /hpf; Color,Urine Yellow; Glucose,Urine (UA) Negative (Negative); Ketones,Urine Negative (Negative); Leukocyte Esterase,Urine Large (Negative); Mucus,Urine Rare /hpf; Nitrite,Urine Negative (Negative); Protein,Urine Trace (Negative); RBC,Urine 21 /hpf (0-5); Specific Gravity,Urine 1.018 (1.001-1.035); Squamous Epithelial Cell,Urine 22 /hpf (0-4); Urobilinogen,Urine <2.0 mg/dL (<2.0); WBC,Urine >182 /hpf (0-5)
[2021-02-02] MEDS: SUCRALFATE 1 GM TAB PO SCH ×3 (05:50→15:36)
[2021-02-02] MEDS: LEVOTHYROXINE 100 MCG TAB PO SCH (05:50)
[2021-02-02] MEDS: HYDROcodone/APAP 10-325MG 1 EACH TAB PO PRN (05:54)
[2021-02-02 06:50] LABS: HCT 32.3 % (34.0-46.0); HGB 10.2 gm/dL (11.4-16.0); Hypochromasia Marked; MCH 29.4 pg (25.0-35.0); MCHC 31.7 g/dL (31.0-37.0); MCV 92.8 fL (80.0-100.0); Platelet Count 234 k/uL (150-450); RBC 3.48 m/uL (3.80-5.40); RDW 15.5 % (11.5-15.5); WBC 6.8 k/uL (3.8-10.6)
[2021-02-02 07:11] LABS: African American GFR (CKD) 85 (>60 ml/min/1.73 sqM); Anion Gap 2 mmol/L; Blood Urea Nitrogen 49 mg/dL (7-17); Calcium 9.5 mg/dL (8.4-10.2); Carbon Dioxide 38 mmol/L (22-30); Chloride 99 mmol/L (98-107); Glucose 151 mg/dL (74-99); Non-African American GFR(CKD) 73 (>60 ml/min/1.73 sqM); Potassium 3.7 mmol/L (3.5-5.1); Sodium 139 mmol/L (137-145)
[2021-02-02] MEDS: HYDROcodone/APAP 10-325MG 1 EACH TAB PO SCH (07:29)
[2021-02-02] MEDS: HYDROCORTISONE SUCCINATE 100 MG/2 ML VIAL IV SCH ×3 (07:40→23:30)
[2021-02-02] MEDS: FLUCONAZOLE 100 MG TAB PO SCH (07:41)
[2021-02-02] MEDS: LACTOBACILLUS ACIDOPH & BULGAR 1 EACH PACKET PO SCH (07:41)
[2021-02-02] MEDS: FUROSEMIDE 10 MG/ML 4 ML VIAL IV SCH (07:41)
[2021-02-02] MEDS: RIVAROXABAN 20 MG TAB PO SCH (07:41)
[2021-02-02] MEDS: ASCORBIC ACID 500 MG TAB PO SCH (07:41)
[2021-02-02] MEDS: FERROUS SULFATE 325 MG TAB PO SCH ×2 (07:41→15:36)
[2021-02-02] MEDS: LORATADINE 10 MG TAB PO SCH (07:41)
[2021-02-02] MEDS: PANTOPRAZOLE 40 MG TABLET PO SCH (07:41)
[2021-02-02] MEDS: LEFLUNOMIDE 20 MG TAB PO SCH (07:41)
[2021-02-02] MEDS: PREGABALIN 100 MG CAP PO SCH ×2 (07:41→15:37)
[2021-02-02] MEDS: COLLAGENASE 250 UNIT/GM OINTMENT 30 GM TUBE TOPICAL SCH (07:42)
--- NOTE | 2021-02-02 08:31 | P.PN ---
Subjective Patient is admitted the for sepsis and nonhealing wounds of the coccyx found to have Pseudomonas. Patient's Pseudomonas is resistant to multiple antibodies patient is presently on vancomycin, Azetreoam was discontinued. Patient is not covered for pseudomonas with present antibiotics that the this is being managed by infectious disease and I believe this is Pseudomonas in the urine is considered as a colonizer. 02/02/2021 Patient urine cultures are positive for multidrug-resistant Pseudomonas only since to gentamicin and tobramycin. These are considered as colonizes because of which a Charles catheter was changed and repeat cultures were obtained from the newer catheters. Flucanazole was added is not on any other antibiotics except for wound VAC. Patient will be discharged to subacute rehabilitation tomorrow most probably. Constitutional: Denied any fatigue denied any fever. Cardio vascular: denied any chest pain, palpitations Gastrointestinal denied any nausea vomiting Pulmonary: Denied any shortness of breath cough Neurologic denied any new focal deficits All inpatient medications were reviewed and appropriate changes in these medications as dictated in the interval history and assessment and plan. PHYSICAL EXAMINATION: GENERAL: The patient is alert and oriented x3, not in any acute distress. Well developed, well nourished. HEENT: Pupils are round and equally reacting to light. EOMI. No scleral icterus. No conjunctival pallor. Normocephalic, atraumatic. No pharyngeal erythema. No thyromegaly. CARDIOVASCULAR: S1 and S2 present. No rubs, or gallops. Murmur and diuretic area PULMONARY: Chest is clear to auscultation, no wheezing or crackles. ABDOMEN: Soft, nontender, nondistended, normoactive bowel sounds. No palpable organomegaly. MUSCULOSKELETAL: No joint swelling or deformity. EXTREMITIES: No cyanosis, clubbing, or pedal edema. NEUROLOGICAL: Gross neurological examination did not reveal any focal deficits. SKIN: Stage IV sacral decubitus ulcer for which patient has wound VAC in place. -Assessment and plan Sepsis secondary to bilateral lower extremity nonhealing wounds and coccyx stage IV wound, urine analysis showing Pseudomonas which he was considered as colonizer and the Charles catheter was changed and patient is only on flucanazole at this time vancomycin was discontinued as well. Patient has a wound VAC in place. Possibly of discharge on Wednesday. -Chronic pain -Drinker arthritis -Acute renal insufficiency for which patient is on systemic steroids -Metabolic encephalopathy secondary to sepsis -Anemia of chronic disease -History of DVT for which patient is on anticoagulation -Hypothyroidism -Peripheral neuropathy for which patient is on Lyrica twice a day which will be continued -Chronic Charles catheter for because of nonhealing decubitus ulcer Objective - Vital Signs Vital signs: Vital Signs Temp 97.8 F 02/02/21 07:40 Pulse 91 02/02/21 07:40 Resp 18 02/02/21 07:40 BP 106/73 02/02/21 07:40 Pulse Ox 94 L 02/02/21 07:40 Intake & Output 02/01/21 02/02/21 02/02/21 18:59 06:59 18:59 Output Total 700 Balance -700 Output: Urine 700 Other: Voiding Method Indwelling Catheter - Labs CBC & Chem 7: 02/02/21 06:23 02/02/21 06:23 Labs: Abnormal Lab Results - Last 24 Hours (Table) 02/01/21 02/01/21 02/01/21 Range/Units 07:52 07:52 19:00 RBC (3.80-5.40) m/uL Hgb 11.0 L (11.4-16.0) gm/dL Hct (34.0-46.0) % MCHC 30.9 L (31.0-37.0) g/dL Carbon Dioxide 39 H (22-30) mmol/L BUN 43 H (7-17) mg/dL Glucose 168 H (74-99) mg/dL Total Protein 5.7 L (6.3-8.2) g/dL Albumin 3.2 L (3.5-5.0) g/dL Urine Appearance Cloudy H (Clear) Urine Protein Trace H (Negative) Urine Blood Trace H (Negative) Ur Leukocyte Esterase Large H (Negative) Urine RBC 21 H (0-5) /hpf Urine WBC >182 H (0-5) /hpf Urine WBC Clumps Many H (None) /hpf Ur Squamous Epith Cells 22 H (0-4) /hpf Amorphous Sediment Rare H (None) /hpf Urine Mucus Rare H (None) /hpf Urine Yeast (Budding) Many H (None) /hpf 02/02/21 02/02/21 Range/Units 06:23 06:23 RBC 3.48 L (3.80-5.40) m/uL Hgb 10.2 L (11.4-16.0) gm/dL Hct 32.3 L (34.0-46.0) % MCHC (31.0-37.0) g/dL Carbon Dioxide 38 H (22-30) mmol/L BUN 49 H (7-17) mg/dL Glucose 151 H (74-99) mg/dL Total Protein (6.3-8.2) g/dL Albumin (3.5-5.0) g/dL Urine Appearance (Clear) Urine Protein (Negative) Urine Blood (Negative) Ur Leukocyte Esterase (Negative) Urine RBC (0-5) /hpf Urine WBC (0-5) /hpf Urine WBC Clumps (None) /hpf Ur Squamous Epith Cells (0-4) /hpf Amorphous Sediment (None) /hpf Urine Mucus (None) /hpf Urine Yeast (Budding) (None) /hpf Microbiology - Last 24 Hours (Table) 02/01/21 19:00 Urine Culture - Preliminary Urine,Voided 01/28/21 17:50 Blood Culture - Preliminary Blood No Growth after 96 hours 01/28/21 18:05 Blood Culture - Preliminary Blood No Growth after 96 hours 01/31/21 17:07 Urine Culture - Final Urine,Voided
[2021-02-02] MEDS: SODIUM CHLORIDE 0.9% 1,000 ML IV SCH (10:21)
[2021-02-03] MEDS: LEVOTHYROXINE 100 MCG TAB PO SCH (05:03)
[2021-02-03] MEDS: SUCRALFATE 1 GM TAB PO SCH ×3 (05:03→15:56)
--- NOTE | 2021-02-03 06:56 | PN ---
PROGRESS NOTE DATE OF SERVICE: 02/02/2021 REASON FOR FOLLOWUP: 1. Urinary tract infection. 2. Pressure ulcer. INTERVAL HISTORY: The patient is afebrile. The patient is breathing comfortably. The patient denies having any chest pain, shortness of breath or cough. No abdominal pain or diarrhea. PHYSICAL EXAMINATION: Her blood pressure is 113/73 with a pulse of 67, temperature 98.2. She is 94% on 2 liters nasal cannula. General description is an elderly female lying in bed in no distress. Respiratory system: Unlabored breathing, clear to auscultation anteriorly. Heart S1, S2. Regular rate and rhythm. Abdomen is soft, no tenderness. LABS: Hemoglobin is 10.2, white count 6.8, BUN of 49, creatinine 0.81. Repeat urine is still positive. DIAGNOSTIC IMPRESSION AND PLAN: 1. Patient with a positive urine culture that did grow a different pathogen likely Charles colonization. Patient is currently doing well off antibiotic therapy and Charles catheter has been changed. Continue with Diflucan. 2. Patient with sacral and left leg pressure ulcer. Local care to continue as ordered and monitor clinical course closely. MMODL / IJN: [id number] /
[2021-02-03] MEDS: ASCORBIC ACID 500 MG TAB PO SCH (08:15)
[2021-02-03] MEDS: LORATADINE 10 MG TAB PO SCH (08:15)
[2021-02-03] MEDS: PANTOPRAZOLE 40 MG TABLET PO SCH (08:15)
[2021-02-03] MEDS: PREGABALIN 100 MG CAP PO SCH ×2 (08:15→15:56)
[2021-02-03] MEDS: FERROUS SULFATE 325 MG TAB PO SCH ×2 (08:15→15:56)
[2021-02-03] MEDS: FLUCONAZOLE 100 MG TAB PO SCH (08:16)
[2021-02-03] MEDS: HYDROcodone/APAP 10-325MG 1 EACH TAB PO SCH (08:16)
[2021-02-03] MEDS: LACTOBACILLUS ACIDOPH & BULGAR 1 EACH PACKET PO SCH (08:16)
[2021-02-03] MEDS: LEFLUNOMIDE 20 MG TAB PO SCH (08:17)
[2021-02-03] MEDS: HYDROCORTISONE SUCCINATE 100 MG/2 ML VIAL IV SCH ×3 (08:17→23:24)
[2021-02-03] MEDS: RIVAROXABAN 20 MG TAB PO SCH (08:17)
[2021-02-03] MEDS: SODIUM CHLORIDE 0.9% 1,000 ML IV SCH (08:17)
[2021-02-03] MEDS: FUROSEMIDE 10 MG/ML 4 ML VIAL IV SCH ×3 (08:17→21:42)
[2021-02-03] MEDS: COLLAGENASE 250 UNIT/GM OINTMENT 30 GM TUBE TOPICAL SCH (10:10)
--- NOTE | 2021-02-03 13:32 | P.PN ---
Subjective Progress Note Date: 02/03/21 HISTORY OF PRESENT ILLNESS This is a 70-year-old female patient of Dr. Moyer with a previous medical history significant for rheumatoid arthritis with significant deformit ies, currently wheelchair bound/bedbound, nonhealing wounds for bilateral lower extremities as well as stage IV sacral decubitus ulcer for which she has been treated with a wound VAC, she has been following with the wound healing Center at [facility] with Dr. Medina at [facility] on a weekly basis. She was started on ertapenem on January 23 run for 14 days, transition on January 27 to cefepime 1 g every 12 hour but appeared the patient had a reaction and this was held and patient was started on IV Solu-Medrol. Patient was having change in mental status, low pulse ox and not eating and [facility] was advised transport the patient to [facility] emergency center for further evaluation and treatment. Patient is afebrile, heart rate in the 70s and 80s, blood pressure 108/60, pulse ox 91% on room air. WBC 9.6, hemoglobin 12.3, platelet count 345. INR 1.1. Sodium 140, potassium 4.9, chloride 94, CO2 39, BUN 50 and creatinine 0.91. Blood sugar 165. Lactic acid 1.3. Calcium 9.7. Magnesium 2.3. Liver function tests are normal. Troponin negative. Urinalysis cloudy, leukoesterase large, WBC 63, WBC clumps moderate, bacteria rare. Chest x-ray reveals pleural thickening and associated atelectasis, possible scarring, rotated exam. Cardiomegaly. Possible underlying pulmonary artery hypertension. Patient to be admitted to the MedSurg floor, consult with Dr. Rangel, patient is continued on vancomycin for now. Urine culture and blood cultures have been obtained. 01/30: Patient's mental status is improved from yesterday. She has been afebrile, heart rate 91, blood pressure 94/60, pulse ox 95% on 2 L nasal cannula. Patient denies having any chest pain. She states she ate some but has decreased appetite. Routine supplement added. She is been seen by Dr. Rangel and is currently on Azactam and vancomycin. Urine culture and wound culture are in progress. Repeat blood work reveals WBC 5.5, hemoglobin 10.2, platelet count 280. Sodium 143, potassium 3.5, chloride 101, CO2 38, BUN 38 creatinine 0.86. Blood sugar 123. 01/31: Patient has been afebrile, heart rate 83, blood pressure 110/65, pulse ox 94% on 2 L nasal cannula. Patient has been continued on Azactam and vancomycin. Dr. Rangel is following the patient. Repeat blood work today reveals WBC 5.6, hemoglobin 9.9, platelet count 262. Sodium 140, potassium 3.8, chloride 101, CO2 36, BUN 40 creatinine 0.75. Blood sugar 135. Urine culture is Pseudomonas multi drug-resistant with susceptibility to only amikacin, gentamicin and tobramycin. Blood culture is no growth after 48 hours. Repeat blood work ordered for tomorrow. 02/02/2021 Patient urine cultures are positive for multidrug-resistant Pseudomonas only since to gentamicin and tobramycin. These are considered as colonizes because of which a Charles catheter was changed and repeat cultures were obtained from the newer catheters. Flucanazole was added is not on any other antibiotics except for wound VAC. Patient will be discharged to subacute rehabilitation tomorrow most probably. 02/03: Dr. Rangel is recommended in Diflucan only for UTI, fully catheter has been changed. She is a wound VAC in place to the sacral wound and local wound care continues. Patient started to have some increased lower extremity edema and Lasix increased to 40 mg IV twice daily. She has been afebrile, heart rate 64, blood pressure 111/71, pulse ox 94% on 2 L nasal cannula. No repeat lab work today. Anticipate patient will be ready for discharge. For tomorrow. REVIEW OF SYSTEMS Constitutional: No fever, no chills, no night sweats. No weight change. Reported weakness, reported fatigue reported lethargy. Reported daytime sleepiness. EENT: No headache. No blurred vision or double vision, no loss of vision. No loss of Hearing, no ringing in the ears, no dizziness. No nasal drainage or congestion. No epistaxis. No sore throat. Lungs: No shortness of breath, cough, no sputum production. No wheezing. Cardiovascular: No chest pain, no lower extremity edema. No palpitations. No paroxysmal nocturnal dyspnea. No orthopnea. No lightheadedness or dizziness. No syncopal episodes. Abdominal: No abdominal pain. No nausea, vomiting. No diarrhea. No constipation. No bloody or tarry stools.. Reported loss of appetite. Genitourinary: No dysuria, increased frequency, urgency. No urinary retention. Musculoskeletal: No myalgias. No muscle weakness, no gait dysfunction, no frequent falls. No back pain. No neck pain. Integumentary: Noted wounds, no lesions. No rash or pruritus. No unusual bruising. No change in hair or nails. Neurologic: No aphasia. No facial droop. Noted change in mentation improved, resolved. No head injury. No headache. No paralysis. No paresthesia. Psychiatric: No depression. No anxiety. No mood swings. Endocrine: No abnormal blood sugars. No weight change. No excessive sweating or thirst. No cold intolerance. PHYSICAL EXAMINATION Gen: This is is a morbidly obese 70-year-old white female. She is resting in bed. She appears to be comfortable. HEENT: Head is atraumatic, normocephalic. Pupils equal, round. Sclerae is anict ch[place]. NECK: Supple. No JVD. No lymphadenopathy. No thyromegaly. LUNGS: Clear to auscultation. No wheezes or rhonchi. No intercostal retractions. HEART: First heart sound is depressed, second heart sounds normal, there is systolic murmur 2/6. Left sternal border. ABDOMEN: Soft. Bowel sounds are present. No masses. No tenderness. EXTREMITIES: No pedal edema. No calf tenderness. Wounds to the coccyx area with wound VAC in place, dressings in place to the lower extremities.. NEUROLOGICAL: Patient is awake, alert and oriented 3. Generalized weakness. ASSESSMENT AND PLAN 1. Sepsis secondary to bilateral lower extremity nonhealing wounds and coccyx wound, acute yeast urinary tract infection. Consult with Dr. Rangel. Continue Diflucan 100 mg oral daily. 2. Bilateral nonhealing wounds to the lower extremities and chronic sacral decubitus. Patient has been under the care of the wound center and Dr. Medina at [facility]. Increase Lasix to 40 mg IV every 12 hours. 3. Possible ALLERGIC reaction to cefepime at [facility]. Cefepime was discontinued and patient placed on IV Solu-Medrol. Patient designated as ALLERGY to cefepime. 4. Rheumatoid arthritis with chronic pain, significant deformities, wheelchair bound. Continue fentanyl patch 25 g per hour every 72 hours, [place] 10 one every 8 hours as needed and 1 daily, Lyrica 100 mg twice daily, Araiva 20 mg daily. 5. 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 Patient started on Solu-Cortef 50 mg IV every 8 hours. Hold oral prednisone. 6. Metabolic encephalopathy secondary to sepsis, improved. Treat underlying cause. 7. Anemia of chronic illness. Continue ferrous sulfate 325 mg twice daily. 8. History of DVT. Xarelto 20 mg daily. 9. Hypothyroidism. Continue levothyroxine 200 g daily. 10. Peripheral neuropathy. Continue patient on Lyrica 100 mg orally twice every day. 11. Chronic Charles catheter. Due to nonhealing decubitus ulcers. 12. DVT prophylaxis. We will maintain the patient on Xarelto 20 mg orally once every day. 13. GI prophylaxis. We will maintain patient on Protonix 40 mg once every day. 14. Patient is full code. DISCHARGE PLAN Return to [facility] on Wednesday. Impression and plan of care have been directed as dictated by the signing physician. Arlene Darnell nurse practitioner acting as scribe for signing physician. Objective - Vital Signs Vital signs: Vital Signs Temp 98 F 02/03/21 07:43 Pulse 64 02/03/21 07:43 Resp 16 02/03/21 07:43 BP 111/71 02/03/21 07:43 Pulse Ox 94 L 02/03/21 07:43 Intake & Output 02/02/21 02/03/21 02/03/21 18:59 06:59 18:59 Output Total 1000 800 Balance -1000 -800 Output: Urine 1000 800 Other: Voiding Method Indwelling Catheter # Bowel Movements 2 - Labs CBC & Chem 7: 02/02/21 06:23 02/02/21 06:23 Labs: Microbiology - Last 24 Hours (Table) 01/28/21 18:05 Blood Culture - Preliminary Blood No Growth after 120 hours 01/28/21 17:50 Blood Culture - Preliminary Blood No Growth after 120 hours 02/01/21 19:00 Urine Culture - Preliminary Urine,Voided Group D Enterococcus
--- NOTE | 2021-02-03 23:17 | PN ---
PROGRESS NOTE DATE OF PROCEDURE: 02/03/2021 REASON FOR FOLLOW UP: 1. Sacral and left leg pressure ulcer. 2. Possible UTI. INTERVAL HISTORY: Patient is afebrile. The patient is breathing comfortably. Complaining of slight bloating. No abdominal pain. No chest pain, shortness of breath or cough. PHYSICAL EXAMINATION: Blood pressure 138/69, pulse of 62, temperature 99.2. She is 94% on 2 L nasal cannula. GENERAL DESCRIPTION: The patient is an elderly female, lying in bed, in no distress. RESPIRATORY SYSTEM: Unlabored breathing, clear to auscultation anteriorly. HEART: S1, S2. Regular rate and rhythm. ABDOMEN: Soft. No tenderness. LABS: No new labs have been obtained today. Urine repeat was VRE. DIAGNOSTIC IMPRESSION AND PLAN: 1. Patient with a positive urine culture initial with multidrug resistant Pseudomonas. 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 Hence, no need for any systemic antibiotic therapy for the same. 2. Patient with sacral and left gluteal pressure ulcer. Local care to continue as ordered. MMODL / IJN: [id number] /
[2021-02-04] MEDS: LEVOTHYROXINE 100 MCG TAB PO SCH (05:40)
[2021-02-04] MEDS: SUCRALFATE 1 GM TAB PO SCH ×2 (05:40→10:09)
[2021-02-04 07:32] VITALS: BP 99/65; PULSE 79; RESP 16; TEMP 98.4
[2021-02-04] MEDS: SODIUM CHLORIDE 0.9% 1,000 ML IV SCH (07:53)
[2021-02-04] MEDS: FUROSEMIDE 10 MG/ML 4 ML VIAL IV SCH (07:54)
[2021-02-04] MEDS: HYDROCORTISONE SUCCINATE 100 MG/2 ML VIAL IV SCH (07:54)
[2021-02-04] MEDS: ASCORBIC ACID 500 MG TAB PO SCH (07:55)
[2021-02-04] MEDS: LEFLUNOMIDE 20 MG TAB PO SCH (07:55)
[2021-02-04] MEDS: FLUCONAZOLE 100 MG TAB PO SCH (07:55)
[2021-02-04] MEDS: PREGABALIN 100 MG CAP PO SCH (07:55)
[2021-02-04] MEDS: RIVAROXABAN 20 MG TAB PO SCH (07:55)
[2021-02-04] MEDS: PANTOPRAZOLE 40 MG TABLET PO SCH (07:55)
[2021-02-04] MEDS: HYDROcodone/APAP 10-325MG 1 EACH TAB PO SCH (07:56)
[2021-02-04] MEDS: COLLAGENASE 250 UNIT/GM OINTMENT 30 GM TUBE TOPICAL SCH (07:57)
[2021-02-04] MEDS: LORATADINE 10 MG TAB PO SCH (08:08)
[2021-02-04] MEDS: LACTOBACILLUS ACIDOPH & BULGAR 1 EACH PACKET PO SCH (08:08)
[2021-02-04] MEDS: FERROUS SULFATE 325 MG TAB PO SCH (08:10)
[2021-02-04 09:05] LABS: HCT 35.2 % (37.2-46.3); MCH 27.5 pg (27.0-32.0); MCHC 28.4 g/dL (32.0-37.0); MCV 96.7 fL (80.0-97.0); Mean Platelet Volume 11.7 fL (9.5-12.2); Platelet Count 241 X 10*3/uL (140-440); RBC 3.64 X 10*6/uL (4.10-5.20); RDW 15.6 % (11.5-14.5); WBC 8.18 X 10*3/uL (4.50-10.00)
[2021-02-04 09:44] LABS: African American GFR (CKD) 65.2 (60.0-200.0); Anion Gap 6.1 mmol/L (4.00-12.00); Calcium 8.9 mg/dL (8.7-10.3); Carbon Dioxide 38.9 mmol/L (21.6-31.8); Non-African American GFR(CKD) 56.2 (60.0-200.0)
--- NOTE | 2021-02-04 11:51 | P.DS ---
Providers Date of admission: 01/30/21 08:31 Expected date of discharge: 02/04/21 Attending physician: Cierra Moyer Consults: 01/28/21 17:41 Consult Physician Routine Consulting Provider: Jocelyn Rangel Consult Reason/Comments: Decubitus ulcer Do you want consulting provider notified?: Yes Primary care physician: Cierra Moyer [facility] Course: HISTORY OF PRESENT ILLNESS This is a 70-year-old female patient of Dr. Moyer with a previous medical history significant for rheumatoid arthritis with significant deformities, currently wheelchair bound/bedbound, nonhealing wounds for bilateral lower extremities as well as stage IV sacral decubitus ulcer for which she has been treated with a wound VAC, she has been following with the wound healing Center at [facility] with Dr. Medina at [facility] on a weekly basis. She was started on ertapenem on January 23 run for 14 days, transition on January 27 to cefepime 1 g every 12 hour but appeared the patient had a reaction and this was held and patient was started on IV Solu-Medrol. Patient was having change in mental status, low pulse ox and not eating and [facility] was advised transport the patient to [facility] emergency center for further evaluation and treatment. Patient is afebrile, heart rate in the 70s and 80s, blood pressure 108/60, pulse ox 91% on room air. WBC 9.6, hemoglobin 12.3, platelet count 345. INR 1.1. Sodium 140, potassium 4.9, chloride 94, CO2 39, BUN 50 and creatinine 0.91. Blood sugar 165. Lactic acid 1.3. Calcium 9.7. Magnesium 2.3. Liver function tests are normal. Troponin negative. Urinalysis cloudy, leukoesterase large, WBC 63, WBC clumps moderate, bacteria rare. Chest x-ray reveals pleural thickening and associated atelectasis, possible scarring, rotated exam. Cardiomegaly. Possible underlying pulmonary artery hypertension. Patient to be admitted to the MedSurg floor, consult with Dr. Rangel, patient is continued on vancomycin for now. Urine culture and blood cultures have been obtained. 01/30: Patient's mental status is improved from yesterday. She has been afebrile, heart rate 91, blood pressure 94/60, pulse ox 95% on 2 L nasal cannula. Patient denies having any chest pain. She states she ate some but has decreased appetite. Routine supplement added. She is been seen by Dr. Rangel and is currently on Azactam and vancomycin. Urine culture and wound culture are in progress. Repeat blood work reveals WBC 5.5, hemoglobin 10.2, platelet count 280. Sodium 143, potassium 3.5, chloride 101, CO2 38, BUN 38 creatinine 0.86. Blood sugar 123. 7/9: Patient has been afebrile, heart rate 83, blood pressure 110/65, pulse ox 94% on 2 L nasal cannula. Patient has been continued on Azactam and vancomycin. Dr. Rangel is following the patient. Repeat blood work today reveals WBC 5.6, hemoglobin 9.9, platelet count 262. Sodium 140, potassium 3.8, chloride 101, CO2 36, BUN 40 creatinine 0.75. Blood sugar 135. Urine culture is Pseudomonas multi drug-resistant with susceptibility to only amikacin, gentamicin and tobramycin. Blood culture is no growth after 48 hours. Repeat blood work ordered for tomorrow. 02/02/2021 Patient urine cultures are positive for multidrug-resistant Pseudomonas only since to gentamicin and tobramycin. These are considered as colonizes because of which a Charles catheter was changed and repeat cultures were obtained from the newer catheters. Flucanazole was added is not on any other antibiotics except for wound VAC. Patient will be discharged to subacute rehabilitation tomorrow most probably. 02/03: Dr. Rangel is recommended in Diflucan only for UTI, fully catheter has been changed. She is a wound VAC in place to the sacral wound and local wound care continues. Patient started to have some increased lower extremity edema and Lasix increased to 40 mg IV twice daily. She has been afebrile, heart rate 64, blood pressure 111/71, pulse ox 94% on 2 L nasal cannula. No repeat lab work today. Anticipate patient will be ready for discharge. For tomorrow. 02/04: Patient states that she is feeling better today. No shortness of breath, no chest pain. She did have a soft bowel movement this morning after receiving milk of magnesia last night. She has had good urine output. She still has some lower extremity edema [facility] Patient has been afebrile, heart rate 79, blood pressure 99/65, pulse ox 97% on 2 L nasal cannula. WBC 8.1, hemoglobin 10.1, platelet count 241. Sodium 142, potassium 4.0, chloride 97, CO2 38, BUN 53 and creatinine 1. Blood sugar 162. Dr. Rangel has recommended no antibiotics as count and probably urine culture is probably a colonized. Patient will be discharged back to [facility] today in stable condition. ASSESSMENT AND PLAN 1. Sepsis secondary to bilateral lower extremity nonhealing wounds and coccyx wound, acute Pseudomonas urinary tract infection. 2. Bilateral nonhealing wounds to the lower extremities and chronic sacral decubitus. 3. Possible ALLERGIC reaction to cefepime at [facility]. 4. Rheumatoid arthritis with chronic pain, significant deformities, wheelchair bound. 5. Adrenal insufficiency secondary to fdc use of steroids and sepsis. 6. Metabolic encephalopathy secondary to sepsis, improved. 7. Anemia of chronic illness. 8. History of DVT. 9. Hypothyroidism. 10. Peripheral neuropathy. 11. Chronic Charles catheter due to nonhealing decubitus ulcers. DISCHARGE PLAN Return to [facility] Impression and plan of care have been directed as dictated by the signing physician. Arlene Darnell nurse practitioner acting as scribe for signing physician. Patient Condition at Discharge: Stable Plan - Discharge Summary Discharge Rx Participant: Yes New Discharge Prescriptions: Continue Levothyroxine Sodium [Synthroid] 200 mcg PO DAILY@0600 Rivaroxaban [Xarelto] 20 mg PO DAILY@0800 Ferrous Sulfate [Feosol] 325 mg PO BID@0800,1700 Leflunomide [Arava] 20 mg PO DAILY@0800 Acetaminophen Tab [Tylenol] 650 mg PO Q6HR PRN tab PRN Reason: Fever And/ Or Pain Ondansetron [Zofran] 4 mg PO Q8HR PRN PRN Reason: Nausea predniSONE 4 mg PO DAILY@0800 Lidocaine 5% Oint [Xylocaine 5% Oint] 1 applic TOPICAL DIRECTED Collagenase [Santyl] 1 applic TOPICAL DAILY Na Phos,M-B/Na Phos,Di-Ba [Fleet Adult] 133 ml RECTAL DAILY PRN PRN Reason: Constipation Mag Hydrox/Aluminum Hyd/Simeth [Mylanta Maximum Strength Liq] 10 ml PO Q4H PRN PRN Reason: Gi Upset fentaNYL 25MCG/HR PATCH [Duragesic 25MCG/HR] 1 patch TRANSDERM Q72H #1 patch Potassium Chloride [Klor-Con 20] 20 meq PO DAILY@0800 Loperamide HCl [Loperamide] 2 mg PO QID PRN PRN Reason: Diarrhea Lactobacillus Acidophilus [Acidophilus Probiotic] 1 cap PO DAILY@0800 Furosemide [Lasix] 40 mg PO BID@0800,1700 Ascorbic Acid [Vitamin C] 500 mg PO DAILY@0800 bisacodyL [Dulcolax] 10 mg RECTAL DAILY PRN PRN Reason: Constipation Loratadine [Claritin] 10 mg PO DAILY@0800 Magnesium Hydroxide [Milk of Magnesia Concentrate] 7,200 mg PO DAILY PRN PRN Reason: Constipation Hydrocortisone Cream [Hydrocortisone 1% Cream] 1 applic TOPICAL BID PRN PRN Reason: Rash diphenhydrAMINE [Benadryl] 25 mg PO Q6H PRN PRN Reason: RASH/PRURITUS Sucralfate [Carafate] 1 gm PO TID@0600,1100,1600 Liquacel 30 ml PO TID@0800,1200,1700 HYDROcodone/APAP 10-325MG [[place] 10-325] 1 tab PO Q8H PRN #9 tab PRN Reason: Pain Changed Pregabalin [Lyrica] 100 mg PO BID@0800,1700 #6 cap HYDROcodone/APAP 10-325MG [[place] 10-325] 1 tab PO DAILY@0800 #3 tab Discontinued Cefepime [Maxipime] 1 gm IV DIRECTED Discharge Medication List Levothyroxine Sodium [Synthroid] 200 mcg PO DAILY@0600 08/26/17 [History] Rivaroxaban [Xarelto] 20 mg PO DAILY@0800 07/10/19 [History] Ferrous Sulfate [Feosol] 325 mg PO BID@0800,1700 09/03/19 [History] Leflunomide [Arava] 20 mg PO DAILY@0800 10/10/19 [History] Acetaminophen Tab [Tylenol] 650 mg PO Q6HR PRN tab 02/26/20 [Rx] Ascorbic Acid [Vitamin C] 500 mg PO DAILY@0800 01/15/21 [History] Furosemide [Lasix] 40 mg PO BID@0800,1700 01/15/21 [History] Lactobacillus Acidophilus [Acidophilus Probiotic] 1 cap PO DAILY@0800 01/15/21 [History] Lidocaine 5% Oint [Xylocaine 5% Oint] 1 applic TOPICAL DIRECTED 01/15/21 [History] Loperamide HCl [Loperamide] 2 mg PO QID PRN 01/15/21 [History] Loratadine [Claritin] 10 mg PO DAILY@0800 01/15/21 [History] Ondansetron [Zofran] 4 mg PO Q8HR PRN 01/15/21 [History] Potassium Chloride [Klor-Con 20] 20 meq PO DAILY@0800 01/15/21 [History] bisacodyL [Dulcolax] 10 mg RECTAL DAILY PRN 01/15/21 [History] predniSONE 4 mg PO DAILY@0800 01/15/21 [History] Collagenase [Santyl] 1 applic TOPICAL DAILY 01/28/21 [History] Hydrocortisone Cream [Hydrocortisone 1% Cream] 1 applic TOPICAL BID PRN 01/28/21 [History] Liquacel 30 ml PO TID@0800,1200,1700 01/28/21 [History] Mag Hydrox/Aluminum Hyd/Simeth [Mylanta Maximum Strength Liq] 10 ml PO Q4H PRN 01/28/21 [History] Magnesium Hydroxide [Milk of Magnesia Concentrate] 7,200 mg PO DAILY PRN 01/28/21 [History] Na Phos,M-B/Na Phos,Di-Ba [Fleet Adult] 133 ml RECTAL DAILY PRN 01/28/21 [History] Sucralfate [Carafate] 1 gm PO TID@0600,1100,1600 01/28/21 [History] diphenhydrAMINE [Benadryl] 25 mg PO Q6H PRN 01/28/21 [History] HYDROcodone/APAP 10-325MG [[place] 10-325] 1 tab PO DAILY@0800 #3 tab 02/04/21 [Rx] HYDROcodone/APAP 10-325MG [[place] 10-325] 1 tab PO Q8H PRN #9 tab 02/04/21 [Rx] Pregabalin [Lyrica] 100 mg PO BID@0800,1700 #6 cap 02/04/21 [Rx] fentaNYL 25MCG/HR PATCH [Duragesic 25MCG/HR] 1 patch TRANSDERM Q72H #1 patch 02/04/21 [Rx] Follow up Appointment(s)/Referral(s): iCerra Moyer MD [Primary Care Provider] - 1 Week (at [facility]) Alecia Oh [NON-STAFF] - As Needed Discharge Disposition: TRANSFER TO SNF/ECF
--- NOTE | 2021-02-04 13:45 | PN ---
PROGRESS NOTE DATE OF SERVICE: 02/04/2021 REASON FOR FOLLOW UP: 1. Sacral and left leg pressure ulcer. 2. UTI. INTERVAL HISTORY: Patient is afebrile. The patient is breathing comfortably. The patient denies having any chest pain, shortness of breath or cough. No abdominal pain or diarrhea. PHYSICAL EXAMINATION: Blood pressure 99/65, pulse of 79, temperature 98.4, she is 97% on 2 L nasal cannula. GENERAL DESCRIPTION: Is an elderly female, lying in bed, in no distress. RESPIRATORY SYSTEM: Unlabored breathing and is clear to auscultation anteriorly. HEART: S1, S2. Regular rhythm. ABDOMEN: Soft, no tenderness. LAB: Hemoglobin is 10.3, white count 8.1. BUN of 23, creatinine 1.0. Repeat urine showing a low colony count of VRE. DIAGNOSTIC IMPRESSION AND PLAN: 1. 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 As the patient seemed to have overall improvement ( ) hence recommend no antibiotic on discharge. 2. Patient with sacral pressure ulcer. Local care to continue with wound VAC. 3. Left leg pressure ulcer. Local care with outpatient followup. MMODL / IJN: [id number] /
--- NOTE | 2021-02-07 07:22 | CDI ---
Documentation Clarification Form Date: 02/07/21 From: Isa Multani Admit Date: 01/30/2021 08:31:00 AM Patient Name: Chyna Bueno Visit Number: [id number] Discharge Date: 02/04/2021 01:15:00 PM ATTENTION: The Clinical Documentation Specialists (CDI) and [facility] Coding Staff appreciate your assistance in clarifying documentation. Please respond to the clarification below the line at the bottom and electronically sign. The CDI & [facility] Coding staff will review the response and follow-up if needed. Please note: Queries are made part of the Legal Health Record. If you have any questions, please contact the author of this message via ITS. Dr. Cierra Moyer, UTI is documented in H&P and has a chronic Charles catheter]. Additional clarification regarding the etiology of the UTI is requested. History/Risk Factors: sacral pressure ulcer stage 4, pressure ulcers of lower extremities, Clinical Indicators: Sepsis secondary to bilateral lower extremity nonhealing wounds and coccyx wound, acute urinary tract infection. Chronic Charles catheter due to nonhealing decubitus ulcers. Urinalysis: Ur Leukocyte Esterase-large, WBC-63, WBC clumps-moderate, Urine culture: Pseudomonas aerugionosa-MDRO Lab results: WBC-9.6, Neutrophils-8.9, Lactic acid-1.3, Treatment: IV Levaqin, IV Vanco. IV Aztreonam, Please clarify the etiology of the UTI, if known: [ X ] Charles catheter, please specify organism Enterococcus [ ] UTI not related to catheter [ ] UTI due to organism [ ] Other condition, please specify [ ] Unable to determine MTDD
== END 2021-02-04 13:15 | DRG 871 ==
LOC: EC 14:18 → 4SSUR 17:56 → OBSVTOIN 01-30 08:31
PROVIDERS: ADMIT Internal Medicine; ATTEND Internal Medicine
DX: A41.9 Sepsis, unspecified organism (principal); G93.41 Metabolic encephalopathy; L89.154 Pressure ulcer of sacral region, stage 4; L89.93 Pressure ulcer of unspecified site, stage 3; E27.3 Drug-induced adrenocortical insufficiency; Z68.41 Body mass index [BMI] 40.0-44.9, adult; Z16.24 Resistance to multiple antibiotics; J98.11 Atelectasis; B37.49 Other urogenital candidiasis; N39.0 Urinary tract infection, site not specified; R65.20 Severe sepsis without septic shock; I27.21 Secondary pulmonary arterial hypertension; L89.329 Pressure ulcer of left buttock, unspecified stage; D63.1 Anemia in chronic kidney disease; E86.0 Dehydration; I13.10 Hypertensive heart and chronic kidney disease without heart failure, with stage 1 through stage 4 chronic kidney disease, or unspecified chronic kidney disease; E66.01 Morbid (severe) obesity due to excess calories; M06.9 Rheumatoid arthritis, unspecified; Z20.822 Contact with and (suspected) exposure to COVID-19; N18.2 Chronic kidney disease, stage 2 (mild); E03.9 Hypothyroidism, unspecified; T38.0X5A Adverse effect of glucocorticoids and synthetic analogues, initial encounter; B96.5 Pseudomonas (aeruginosa) (mallei) (pseudomallei) as the cause of diseases classified elsewhere; G89.29 Other chronic pain; G62.9 Polyneuropathy, unspecified; M79.7 Fibromyalgia; R21 Rash and other nonspecific skin eruption; Z79.891 Long term (current) use of opiate analgesic; Z79.890 Hormone replacement therapy; Z79.52 Long term (current) use of systemic steroids; Z79.01 Long term (current) use of anticoagulants; Z79.899 Other long term (current) drug therapy; Z86.14 Personal history of Methicillin resistant Staphylococcus aureus infection; Z86.19 Personal history of other infectious and parasitic diseases; Z86.718 Personal history of other venous thrombosis and embolism; Z87.11 Personal history of peptic ulcer disease; Z87.81 Personal history of (healed) traumatic fracture; Z90.49 Acquired absence of other specified parts of digestive tract; Z87.19 Personal history of other diseases of the digestive system; Z90.89 Acquired absence of other organs; Z99.3 Dependence on wheelchair; Z87.2 Personal history of diseases of the skin and subcutaneous tissue; Z86.31 Personal history of diabetic foot ulcer; Z74.01 Bed confinement status; Z98.890 Other specified postprocedural states; Z71.3 Dietary counseling and surveillance; Z88.1 Allergy status to other antibiotic agents; Z88.0 Allergy status to penicillin; Z80.8 Family history of malignant neoplasm of other organs or systems; Z80.6 Family history of leukemia; Z82.49 Family history of ischemic heart disease and other diseases of the circulatory system; Z82.61 Family history of arthritis; Z83.79 Family history of other diseases of the digestive system
CPT/HCPCS: 36415; 71046; 80048; 80053; 81001; 83605; 83735; 84484; 85025; 85027; 85610; 85730; 87040; 87077; 87086; 87186; 87635; 93005; 94760; 99285

== ENCOUNTER 2021-02-12 14:54 | Inpatient (IN) | payer MEDICARE, OTHER ==
[2021-02-12] MEDS ORDERED: SODIUM CHLORIDE 0.9% 1,000 ML IV STA ×2 (15:10→17:20)
[2021-02-12] MEDS ORDERED: SODIUM CHLORIDE 0.9% 500 ML 250 ML IV STA ×2 (15:10→17:00)
--- NOTE | 2021-02-12 15:16 | ED ---
General Adult HPI - General Chief complaint: Recheck/Abnormal Lab/Rx Stated complaint: hypotension Time Seen by Provider: 02/12/21 15:06 Source: patient, RN/MD, EMS, RN notes reviewed Mode of arrival: EMS Limitations: no limitations - History of Present Illness Initial comments: Patient is a pleasant 70-year-old female presenting to the emergency department low blood pressure. Patient recently had chest x-ray concerning for fluid overload. Patient did have her Lasix increased as well as IV Lasix and lately has been feeling lightheaded. Blood pressure has been low today. Patient was seen in the emergency Department by Dr. Moyer who is concern for dehydration. He would like some gentle hydration and probable admission. Patient adds that she was recently in the hospital for leg wounds. Dr. Moyer did look at wounds in her legs and perineal region and states they are improving. - Related Data Home Medications Medication Instructions Recorded Confirmed Levothyroxine Sodium [Synthroid] 200 mcg PO DAILY@0600 08/26/17 02/12/21 Rivaroxaban [Xarelto] 20 mg PO DAILY@0800 07/10/19 02/12/21 Ferrous Sulfate [Feosol] 325 mg PO BID@0800,1700 09/03/19 02/12/21 Leflunomide [Arava] 20 mg PO DAILY@0800 10/10/19 02/12/21 Ascorbic Acid [Vitamin C] 500 mg PO DAILY@0800 01/15/21 02/12/21 Furosemide [Lasix] 40 mg PO DAILY@1700 01/15/21 02/12/21 Lactobacillus Acidophilus 1 cap PO DAILY@0800 01/15/21 02/12/21 [Acidophilus Probiotic] Loperamide HCl [Loperamide] 2 mg PO QID PRN 01/15/21 02/12/21 Loratadine [Claritin] 10 mg PO DAILY@0800 01/15/21 02/12/21 Ondansetron [Zofran] 4 mg PO Q8HR PRN 01/15/21 02/12/21 Potassium Chloride [Klor-Con 20] 20 meq PO DAILY@0800 01/15/21 02/12/21 bisacodyL [Dulcolax] 10 mg RECTAL DAILY PRN 01/15/21 02/12/21 predniSONE 4 mg PO DAILY@0800 01/15/21 02/12/21 Collagenase [Santyl] 1 applic TOPICAL DAILY 01/28/21 02/12/21 Hydrocortisone Cream 1 applic TOPICAL BID PRN 01/28/21 02/12/21 [Hydrocortisone 1% Cream] Liquacel 30 ml PO TID@0800,1200,1700 01/28/21 02/12/21 Mag Hydrox/Aluminum Hyd/Simeth 10 ml PO Q4H PRN 01/28/21 02/12/21 [Mylanta Maximum Strength Liq] Magnesium Hydroxide [Milk of 7,200 mg PO DAILY PRN 01/28/21 02/12/21 Magnesia Concentrate] Na Phos,M-B/Na Phos,Di-Ba [Fleet 133 ml RECTAL DAILY PRN 01/28/21 02/12/21 Adult] Sucralfate [Carafate] 1 gm PO TID@0600,1100,1600 01/28/21 02/12/21 diphenhydrAMINE [Benadryl] 25 mg PO Q6H PRN 01/28/21 02/12/21 Furosemide [Lasix] 60 mg PO DAILY@0800 02/12/21 02/12/21 Ipratropium-Albuterol Nebulize 3 ml INHALATION RT-QID@00,06,12,18 02/12/21 02/12/21 [Duoneb 0.5 mg-3 mg/3 ml Soln] Lactose-Reduced Food [Ensure Plus] 1 can PO BID@0800,1700 02/12/21 02/12/21 Lidocaine 5% Cream 1 applic TOPICAL DAILY PRN 02/12/21 02/12/21 Previous Rx's Medication Instructions Recorded Acetaminophen Tab [Tylenol] 650 mg PO Q6HR PRN tab 02/26/20 HYDROcodone/APAP 10-325MG [[place] 1 tab PO DAILY@0800 #3 tab 02/04/21 10-325] HYDROcodone/APAP 10-325MG [[place] 1 tab PO Q8H PRN #9 tab 02/04/21 10-325] Pregabalin [Lyrica] 100 mg PO BID@0800,1700 #6 cap 02/04/21 fentaNYL 25MCG/HR PATCH [Duragesic 1 patch TRANSDERM Q72H #1 patch 02/04/21 25MCG/HR] Allergies Allergy/AdvReac Type Severity Reaction Status Date / Time cefepime Allergy Rash/Hives Verified 02/12/21 17:06 ceftriaxone [From Rocephin] Allergy Rash/Hives Verified 02/12/21 17:06 Penicillins Allergy Rash/Hives Verified 02/12/21 17:06 POSITIVE TB REACTOR Allergy Unknown Uncoded 02/12/21 15:11 Review of Systems ROS Statement: Those systems with pertinent positive or pertinent negative responses have been documented in the HPI. ROS Other: All systems not noted in ROS Statement are negative. Constitutional: Denies: fever Eyes: Denies: eye pain ENT: Denies: ear pain Respiratory: Denies: cough, dyspnea Cardiovascular: Denies: chest pain Endocrine: Denies: fatigue Gastrointestinal: Denies: vomiting Genitourinary: Denies: dysuria Musculoskeletal: Denies: back pain Skin: Denies: rash Neurological: Denies: headache Past Medical History Past Medical History: Deep Vein Thrombosis (DVT), Fibromyalgia, GI Bleed, Hypertension, Renal Disease, Rheumatoid Arthritis (RA), Skin Disorder, Thyroid Disorder Additional Past Medical History / Comment(s): Hx bleeding stomach ulcer. CKD, stage II; "Leaky bladder," "poor circulation," current Wound rt buttock, with wound vac, wound left lower leg, Hx Rt hip fx, no surg. 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 Nodule exc from thyroid. Sinus surgery. surgical excision, debridment of sacrum w/ wound VAC placement on 08/05/15 and sx done(flap), developed pin hole leak - had 2nd sx to repair. Debridement wound care to RLE wound on 08/21/15. Past Anesthesia/Blood Transfusion Reactions: No Reported Reaction Additional Past Anesthesia/Blood Transfusion Reaction / Comment(s): Pt has received blood in past without reaction. Past Psychological History: No Psychological Hx Reported Smoking Status: Never smoker - Past Family History Mother Family Medical History: AFIB, Cancer Additional Family Medical History / Comment(s): skin cancer Father Family Medical History: Cancer, Liver Disease, Rheumatoid Arthritis (RA) Additional Family Medical History / Comment(s): Leukemia. at age 72 of liver problem. General Exam Limitations: no limitations General appearance: alert, in no apparent distress Head exam: Present: normocephalic Eye exam: Present: normal appearance ENT exam: Present: normal oropharynx Neck exam: Present: normal inspection Respiratory exam: Present: normal lung sounds bilaterally. Absent: rales Cardiovascular Exam: Present: regular rate, normal rhythm GI/Abdominal exam: Present: soft. Absent: tenderness Extremities exam: Present: other (Healing bilateral anterior leg wounds) Neurological exam: Present: alert Psychiatric exam: Present: normal affect, normal mood Skin exam: Present: other (Healing bilateral anterior tibial leg wounds) Course Vital Signs 02/12/21 02/12/21 02/12/21 14:58 15:32 16:30 Temperature 98.3 F Pulse Rate 82 82 81 Respiratory 20 18 18 Rate Blood Pressure 81/51 100/63 100/81 O2 Sat by Pulse 88 L 96 94 L Oximetry 02/12/21 02/12/21 16:55 17:32 Temperature Pulse Rate 80 81 Respiratory 18 16 Rate Blood Pressure 81/52 89/48 O2 Sat by Pulse 93 L 96 Oximetry EKG Findings - EKG Comments: EKG Findings:: Sinus rhythm with rate of 81. MO 192. QRS 92. QT 354. QTC 411. T-wave inversion V1 through V3. Medical Decision Making - Medical Decision Making Patient reevaluated. Patient and family updated. Case was again discussed with Dr. Moyer who will admit his patient. Patient may have a small urinary tract infection however blood pressure is not felt to be related to urinary tract infection or sepsis. Patient has dehydration and needs fluid replacement. Fluid replacement needs to be given slowly secondary to history of significant congestive heart failure and recent congestive heart failure. - Lab Data Result diagrams: 02/12/21 15:18 02/12/21 15:18 Lab Results 02/12/21 02/12/21 02/12/21 Range/Units 15:18 15:18 15:18 WBC 8.5 (3.8-10.6) k/uL RBC 3.82 (3.80-5.40) m/uL Hgb 11.2 L (11.4-16.0) gm/dL Hct 36.4 (34.0-46.0) % MCV 95.4 (80.0-100.0) fL MCH 29.4 (25.0-35.0) pg MCHC 30.9 L (31.0-37.0) g/dL RDW 15.0 (11.5-15.5) % Plt Count 320 (150-450) k/uL MPV 8.3 Neutrophils % 77 % Lymphocytes % 9 % Monocytes % 7 % Eosinophils % 5 % Basophils % 1 % Neutrophils # 6.6 (1.3-7.7) k/uL Lymphocytes # 0.8 L (1.0-4.8) k/uL Monocytes # 0.6 (0-1.0) k/uL Eosinophils # 0.4 (0-0.7) k/uL Basophils # 0.1 (0-0.2) k/uL Hypochromasia Marked PT 10.2 (9.0-12.0) sec INR 0.9 (<1.2) APTT 25.5 (22.0-30.0) sec Sodium (137-145) mmol/L Potassium (3.5-5.1) mmol/L Chloride (98-107) mmol/L Carbon Dioxide (22-30) mmol/L Anion Gap mmol/L BUN (7-17) mg/dL Creatinine (0.52-1.04) mg/dL Est GFR (CKD-EPI)AfAm (>60 ml/min/1.73 sqM) Est GFR (CKD-EPI)NonAf (>60 ml/min/1.73 sqM) Glucose (74-99) mg/dL Calcium (8.4-10.2) mg/dL Total Bilirubin (0.2-1.3) mg/dL AST (14-36) U/L ALT (4-34) U/L Alkaline Phosphatase (38-126) U/L NT-Pro-B Natriuret Pep pg/mL Total Protein (6.3-8.2) g/dL Albumin (3.5-5.0) g/dL Urine Color Light Yellow Urine Appearance Clear (Clear) Urine pH 5.5 (5.0-8.0) Ur Specific [place] 1.008 (1.001-1.035) Urine Protein Negative (Negative) Urine Glucose (UA) Negative (Negative) Urine Ketones Negative (Negative) Urine Blood Negative (Negative) Urine Nitrite Negative (Negative) Urine Bilirubin Negative (Negative) Urine Urobilinogen <2.0 (<2.0) mg/dL Ur Leukocyte Esterase Large H (Negative) Urine RBC 3 (0-5) /hpf Urine WBC 14 H (0-5) /hpf Urine Bacteria Many H (None) /hpf Urine Mucus Rare H (None) /hpf Ur Yeast w Hyphae Occasional (None) /hpf 02/12/21 02/12/21 Range/Units 15:18 15:18 WBC (3.8-10.6) k/uL RBC (3.80-5.40) m/uL Hgb (11.4-16.0) gm/dL Hct (34.0-46.0) % MCV (80.0-100.0) fL MCH (25.0-35.0) pg MCHC (31.0-37.0) g/dL RDW (11.5-15.5) % Plt Count (150-450) k/uL MPV Neutrophils % % Lymphocytes % % Monocytes % % Eosinophils % % Basophils % % Neutrophils # (1.3-7.7) k/uL Lymphocytes # (1.0-4.8) k/uL Monocytes # (0-1.0) k/uL Eosinophils # (0-0.7) k/uL Basophils # (0-0.2) k/uL Hypochromasia PT (9.0-12.0) sec INR (<1.2) APTT (22.0-30.0) sec Sodium 139 (137-145) mmol/L Potassium 3.7 (3.5-5.1) mmol/L Chloride 90 L (98-107) mmol/L Carbon Dioxide 42 H* (22-30) mmol/L Anion Gap 7 mmol/L BUN 56 H (7-17) mg/dL Creatinine 0.95 (0.52-1.04) mg/dL Est GFR (CKD-EPI)AfAm 70 (>60 ml/min/1.73 sqM) Est GFR (CKD-EPI)NonAf 60 (>60 ml/min/1.73 sqM) Glucose 146 H (74-99) mg/dL Calcium 9.1 (8.4-10.2) mg/dL Total Bilirubin 0.4 (0.2-1.3) mg/dL AST 52 H (14-36) U/L ALT 48 H (4-34) U/L Alkaline Phosphatase 128 H (38-126) U/L NT-Pro-B Natriuret Pep 370 pg/mL Total Protein 5.6 L (6.3-8.2) g/dL Albumin 3.1 L (3.5-5.0) g/dL Urine Color Urine Appearance (Clear) Urine pH (5.0-8.0) Ur Specific [place] (1.001-1.035) Urine Protein (Negative) Urine Glucose (UA) (Negative) Urine Ketones (Negative) Urine Blood (Negative) Urine Nitrite (Negative) Urine Bilirubin (Negative) Urine Urobilinogen (<2.0) mg/dL Ur Leukocyte Esterase (Negative) Urine RBC (0-5) /hpf Urine WBC (0-5) /hpf Urine Bacteria (None) /hpf Urine Mucus (None) /hpf Ur Yeast w Hyphae (None) /hpf - Radiology Data Radiology results: image reviewed (Chest x-ray does show mild fibrosis. Mild resolving heart failure.) Disposition Clinical Impression: Dehydration Disposition: ADMITTED IP TO THIS HOSP Is patient prescribed a controlled substance at d/c from ED?: No Referrals: Cierra Moyer MD [Primary Care Provider] - 1-2 days Decision Time: 17:56
[2021-02-12 15:32] LABS: Basophils # (A) 0.1 k/uL (0-0.2); Basophils % (A) 1 %; Eosinophils # (A) 0.4 k/uL (0-0.7); Eosinophils % (A) 5 %; HCT 36.4 % (34.0-46.0); HGB 11.2 gm/dL (11.4-16.0); Hypochromasia Marked; Lymphocytes # (A) 0.8 k/uL (1.0-4.8); Lymphocytes % (A) 9 %; MCH 29.4 pg (25.0-35.0); MCHC 30.9 g/dL (31.0-37.0); MCV 95.4 fL (80.0-100.0); Mean Platelet Volume 8.3; Monocytes # (A) 0.6 k/uL (0-1.0); Monocytes % (A) 7 %; Neutrophils # (A) 6.6 k/uL (1.3-7.7); Neutrophils % (A) 77 %; Platelet Count 320 k/uL (150-450); RBC 3.82 m/uL (3.80-5.40); WBC 8.5 k/uL (3.8-10.6)
[2021-02-12 15:42] LABS: Appearance,Urine Clear (Clear); Bacteria,Urine Many /hpf; Bilirubin,Urine Negative (Negative); Blood,Urine Negative (Negative); Color,Urine Light Yellow; Glucose,Urine (UA) Negative (Negative); Hyphae Yeast, Urine Occasional /hpf; Ketones,Urine Negative (Negative); Leukocyte Esterase,Urine Large (Negative); Mucus,Urine Rare /hpf; Nitrite,Urine Negative (Negative); PH, Urine 5.5 (5.0-8.0); Protein,Urine Negative (Negative); RBC,Urine 3 /hpf (0-5); Specific Gravity,Urine 1.008 (1.001-1.035); Urobilinogen,Urine <2.0 mg/dL (<2.0); WBC,Urine 14 /hpf (0-5)
[2021-02-12 15:46] LABS: Albumin 3.1 g/dL (3.5-5.0); Calcium 9.1 mg/dL (8.4-10.2); Potassium 3.7 mmol/L (3.5-5.1); Total Bilirubin 0.4 mg/dL (0.2-1.3); Total Protein 5.6 g/dL (6.3-8.2)
[2021-02-12 15:47] LABS: INR 0.9 (<1.2); Partial Thromboplastin Time 25.5 sec (22.0-30.0); Prothrombin Time 10.2 sec (9.0-12.0)
[2021-02-12] MEDS ORDERED: ACETAMINOPHEN TAB 500 MG TAB PO STA (16:16)
--- NOTE | 2021-02-12 16:53 | XR ---
EXAMINATION TYPE: XR chest 2V DATE OF EXAM: 02/12/2021 COMPARISON: 01/28/2021 HISTORY: Weakness TECHNIQUE: 2 views FINDINGS: There is no heart failure nor confluent pneumonic infiltrate. Heart appears borderline enla rged. There are chest leads. Bony thorax is intact. There is coarsening of the lung markings. IMPRESSION: Mild probably fibrosis. There is improvement in the lungs compared to old exam. This is c onsistent with resolving mild heart failure.
[2021-02-12] MEDS ORDERED: NALOXONE 0.4 MG/ML 1 ML VIAL IV PRN (17:56)
[2021-02-12] MEDS ORDERED: LEVOFLOXACIN 250MG-D5W PMX 250 MG in DEXTROSE/WATER 1 50ML.BAG IVPB STA (18:01)
[2021-02-12] MEDS ORDERED: IBUPROFEN 400 MG TAB PO STA (18:08)
[2021-02-13 10:28] LABS: Calcium 9.2 mg/dL (8.4-10.2); Potassium 3.8 mmol/L (3.5-5.1)
[2021-02-13 11:39] LABS: Glucose,Whole Blood 130 mg/dL (75-99)
[2021-02-13] MEDS ORDERED: LIDOCAINE 4% CREAM 5 GM TUBE TOPICAL PRN (15:59)
[2021-02-13] MEDS ORDERED: MAGNESIUM HYDROXIDE 2,400 MG/10 ML CUP PO PRN (15:59)
[2021-02-13] MEDS ORDERED: diphenhydrAMINE 25 MG CAP PO PRN (15:59)
[2021-02-13] MEDS ORDERED: ACETAMINOPHEN TAB 325 MG TAB PO PRN (15:59)
[2021-02-13] MEDS ORDERED: MAG HYDROX/AL HYDROX/SIMETH 30 ML CUP PO PRN (15:59)
[2021-02-13] MEDS ORDERED: ONDANSETRON 4 MG TAB PO PRN (15:59)
--- NOTE | 2021-02-13 16:09 | P.HPIM ---
History of Present Illness H&P Date: 02/12/21 HISTORY OF PRESENT ILLNESS This is a 70-year-old female patient of mine with a previous medical history significant for rheumatoid arthritis with significant deformities, currently wheelchair bound/bedbound, nonhealing wounds for bilateral lower extremities as well as stage IV sacral decubitus ulcer for which she has been treated with a wound VAC, she has been following with the wound healing Center at [facility] with Dr. Medina at [facility] on a weekly basis. She was started on ertapenem on January 23 run for 14 days, transition on January 27 to cefepime 1 g every 12 hour but appeared the patient had a reaction and this was held and patient was started on IV Solu-Medrol. Patient hospitalization February 04 at which time she was treated for metabolic encephalopathy, sepsis, acute Pseudomonas urinary tract infection. Patient was seen and followed by Dr. Rangel with recommendations to discharge patient on no antibiotics and cefepime was discontinued. Patient was to continue local wound care to the bilateral lower legs and wound VAC to the sacral pressure ulcer. At [facility], patient was treated for lower extremity edema with increased Lasix and seemed to be doing fine until yesterday when she was found to have a low blood pressure of 88/52, heart rate was 86. Patient was having complaints of dizziness. Pulse ox was 88. She had a chest x-ray done at the [place] [facility] which revealed heart failure and patient was transferred to [facility] for evaluation. Patient was found to be afebrile, heart rate 82, initial blood pressure 81/51 followed by 100/63. Pulse ox initially was 88% on room air. CBC was unremarkable. CO2 was 42, creatinine 0.95. Liver function tests were elevated with AST 52, ALT 48, alkaline phosphatase 128. Urinalysis reveals a cholinesterase large, WBCs 14, bacteria many. Urine culture was sent. Chest x- ray revealed mild probably fibrosis. Improvement in the lungs compared to old exam. This is consistent with resolving mild heart failure. Patient was admitted to the cardiac stepdown unit and consult requested with Dr. Rangel. REVIEW OF SYSTEMS Constitutional: No fever, no chills, no night sweats. No weight change. Reported weakness, reported fatigue reported lethargy. Reported daytime sleepiness. EENT: No headache. No blurred vision or double vision, no loss of vision. No loss of Hearing, no ringing in the ears, reports dizziness. No nasal drainage or congestion. No epistaxis. No sore throat. Lungs: No shortness of breath, cough, no sputum production. No wheezing. Cardiovascular: No chest pain, no lower extremity edema. No palpitations. No paroxysmal nocturnal dyspnea. No orthopnea. No lightheadedness reports dizziness. No syncopal episodes. Abdominal: No abdominal pain. No nausea, vomiting. No diarrhea. No constipation. No bloody or tarry stools.. Reported loss of appetite. Genitourinary: No dysuria, increased frequency, urgency. No urinary retention. Musculoskeletal: No myalgias. No muscle weakness, no gait dysfunction, no adolfo quent falls. No back pain. No neck pain. Integumentary: Noted wounds, chronic to bilateral lower legs which are healing nicely and decubitus sacrum. No rash or pruritus. No unusual bruising. No c hange in hair or nails. Neurologic: No aphasia. No facial droop. Noted change in mentation. No head injury. No headache. No paralysis. No paresthesia. Psychiatric: No depression. No anxiety. No mood swings. Endocrine: No abnormal blood sugars. SOCIAL HISTORY Patient is a lifelong nonsmoker, no alcohol abuse, she resides at [facility]. FAMILY HISTORY Mother has history of skin cancer. Father has history of leukemia and at age 72 from a liver problem also with history of rheumatoid arthritis. PHYSICAL EXAMINATION Gen: This is is a morbidly obese 70-year-old white female. She is resting on the ER stretcher. She appears to be comfortable. HEENT: Head is atraumatic, normocephalic. Pupils equal, round. Sclerae is anicteric. NECK: Supple. No JVD. No lymphadenopathy. No thyromegaly. LUNGS: Clear to auscultation. No wheezes or rhonchi. No intercostal retractions. HEART: First heart sound is depressed, second heart sounds normal, tachycardic, there is systolic murmur 2/6. Left sternal border. ABDOMEN: Soft. Bowel sounds are present. No masses. No tenderness. EXTREMITIES: No pedal edema. No calf tenderness. Wounds to the coccyx area, wounds to the bilateral lower extremities with purulent drainage and foul smell. NEUROLOGICAL: Patient is awake, alert and oriented to person and place. Generalized weakness. ASSESSMENT AND PLAN 1. Hypotension possibly related to sepsis secondary to acute urinary tract infection. Consult with Dr. Rangel. Continue Levaquin for now. 2. Bilateral nonhealing wounds to the lower extremities and chronic sacral de cubitus. Patient has been under the care of the wound center and Dr. Medina at [facility]. 3. Elevated liver function tests. Recheck in the morning. Acute hepatitis panel ordered. 4. Rheumatoid arthritis with chronic pain, significant deformities, wheelchair bound. Continue fentanyl patch 25 g per hour every 72 hours, Piercy 10 one every 8 hours as needed and 1 daily, Lyrica 100 mg twice daily, Araiva 20 mg daily. 5. Adrenal insufficiency secondary to [facility] use of steroids and sepsis. Continue oral prednisone at 4 mg daily. 6. Anemia of chronic illness. Continue ferrous sulfate 325 mg twice daily. 7. History of DVT. Xarelto 20 mg daily. 8. Hypothyroidism. Continue levothyroxine 200 g daily. 9. Peripheral neuropathy. Continue patient on Lyrica 100 mg orally twice every day. 10. Chronic Charles catheter. Due to nonhealing decubitus ulcers. 11. DVT prophylaxis. We will maintain the patient on Xarelto 20 mg orally once every day. 12. GI prophylaxis. We will maintain patient on Protonix 40 mg once every day. 14. Admit to inpatient. Estimated length of stay 2 midnights. 15. Patient is full code. DISCHARGE PLAN Return to [facility]. Past Medical History Past Medical History: Deep Vein Thrombosis (DVT), Fibromyalgia, GI Bleed, Hypertension, Renal Disease, Rheumatoid Arthritis (RA), Skin Disorder, Thyroid Disorder Additional Past Medical History / Comment(s): Hx bleeding stomach ulcer. CKD, stage II; "Leaky bladder," "poor circulation," current Wound rt buttock, with wound vac, wound left lower leg, Hx Rt hip fx, no surg. 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 Nodule exc from thyroid. Sinus surgery. surgical excision, debridment of sacrum w/ wound VAC placement on 08/05/15 and sx done(flap), developed pin hole leak - had 2nd sx to repair. Debridement wound care to RLE wound on 08/21/15. Past Anesthesia/Blood Transfusion Reactions: No Reported Reaction Additional Past Anesthesia/Blood Transfusion Reaction / Comment(s): Pt has received blood in past without reaction. Past Psychological History: No Psychological Hx Reported Smoking Status: Never smoker - Past Family History Mother Family Medical History: AFIB, Cancer Additional Family Medical History / Comment(s): skin cancer Father Family Medical History: Cancer, Liver Disease, Rheumatoid Arthritis (RA) Additional Family Medical History / Comment(s): Leukemia. at age 72 of liver problem. Medications and Allergies Home Medications Medication Instructions Recorded Confirmed Type Levothyroxine Sodium [Synthroid] 200 mcg PO DAILY@0600 08/26/17 02/12/21 History Rivaroxaban [Xarelto] 20 mg PO DAILY@0800 07/10/19 02/12/21 History Ferrous Sulfate [Feosol] 325 mg PO BID@0800,1700 09/03/19 02/12/21 History Leflunomide [Arava] 20 mg PO DAILY@0800 10/10/19 02/12/21 History Acetaminophen Tab [Tylenol] 650 mg PO Q6HR PRN tab 02/26/20 02/12/21 Rx Ascorbic Acid [Vitamin C] 500 mg PO DAILY@0800 01/15/21 02/12/21 History Furosemide [Lasix] 40 mg PO DAILY@1700 01/15/21 02/12/21 History Lactobacillus Acidophilus 1 cap PO DAILY@0800 01/15/21 02/12/21 History [Acidophilus Probiotic] Loperamide HCl [Loperamide] 2 mg PO QID PRN 01/15/21 02/12/21 History Loratadine [Claritin] 10 mg PO DAILY@0801/15/21 02/12/21 History Ondansetron [Zofran] 4 mg PO Q8HR PRN 01/15/21 02/12/21 History Potassium Chloride [Klor-Con 20] 20 meq PO DAILY@0800 01/15/21 02/12/21 History bisacodyL [Dulcolax] 10 mg RECTAL DAILY PRN 01/15/21 02/12/21 History predniSONE 4 mg PO DAILY@0800 01/15/21 02/12/21 History Collagenase [Santyl] 1 applic TOPICAL DAILY 01/28/21 02/12/21 History Hydrocortisone Cream 1 applic TOPICAL BID PRN 01/28/21 02/12/21 History [Hydrocortisone 1% Cream] Liquacel 30 ml PO TID@0800,1200,1700 01/28/21 02/12/21 History Mag Hydrox/Aluminum Hyd/Simeth 10 ml PO Q4H PRN 01/28/21 02/12/21 History [Mylanta Maximum Strength Liq] Magnesium Hydroxide [Milk of 7,200 mg PO DAILY PRN 01/28/21 02/12/21 History Magnesia Concentrate] Na Phos,M-B/Na Phos,Di-Ba [Fleet 133 ml RECTAL DAILY PRN 01/28/21 02/12/21 History Adult] Sucralfate [Carafate] 1 gm PO TID@0600,1100,1600 01/28/21 02/12/21 History diphenhydrAMINE [Benadryl] 25 mg PO Q6H PRN 01/28/21 02/12/21 History HYDROcodone/APAP 10-325MG [Piercy 1 tab PO DAILY@0800 #3 tab 02/04/21 02/12/21 Rx 10-325] HYDROcodone/APAP 10-325MG [Piercy 1 tab PO Q8H PRN #9 tab 02/04/21 02/12/21 Rx 10-325] Pregabalin [Lyrica] 100 mg PO BID@0800,1700 #6 cap 02/04/21 02/12/21 Rx fentaNYL 25MCG/HR PATCH [Duragesic 1 patch TRANSDERM Q72H #1 patch 02/04/21 02/12/21 Rx 25MCG/HR] Furosemide [Lasix] 60 mg PO DAILY@0800 02/12/21 02/12/21 History Ipratropium-Albuterol Nebulize 3 ml INHALATION RT-QID@00,06,12,18 02/12/21 02/12/21 History [Duoneb 0.5 mg-3 mg/3 ml Soln] Lactose-Reduced Food [Ensure Plus] 1 can PO BID@0800,1700 02/12/21 02/12/21 History Lidocaine 5% Cream 1 applic TOPICAL DAILY PRN 02/12/21 02/12/21 History Allergies Allergy/AdvReac Type Severity Reaction Status Date / Time cefepime Allergy Rash/Hives Verified 02/12/21 17:06 ceftriaxone [From Rocephin] Allergy Rash/Hives Verified 02/12/21 17:06 Penicillins Allergy Rash/Hives Verified 02/12/21 17:06 POSITIVE TB REACTOR Allergy Unknown Uncoded 02/12/21 15:11 Physical Exam Vitals: Vital Signs Temp Pulse Resp BP Pulse Ox 02/12/21 14:58 98.3 F 82 20 81/51 88 L Intake and Output 02/12/21 02/12/21 02/12/21 06:59 14:59 22:59 Other: Weight 125.7 kg Results CBC & Chem 7: 02/14/21 07:55 02/14/21 07:55
[2021-02-13 16:51] LABS: Glucose,Whole Blood 111 mg/dL (75-99)
[2021-02-13 16:51] LABS: Glucose,Whole Blood 395 mg/dL (75-99)
[2021-02-13] MEDS: FERROUS SULFATE 325 MG TAB PO SCH (16:52)
[2021-02-13] MEDS: HYDROcodone/APAP 10-325MG 1 EACH TAB PO PRN (16:53)
[2021-02-13] MEDS: PREGABALIN 100 MG CAP PO SCH (16:54)
[2021-02-13] MEDS: FUROSEMIDE 40 MG TAB PO SCH (16:54)
[2021-02-13] MEDS ORDERED: NON FORMULARY DRUG (Lactose-Reduced Food [Ensure Plus] 237 ML Liquid) PO SCH (17:00)
[2021-02-13] MEDS: LEVOFLOXACIN 250MG-D5W PMX 250 MG in DEXTROSE/WATER 1 50ML.BAG IVPB SCH (18:28)
[2021-02-13 20:10] LABS: Glucose,Whole Blood 152 mg/dL (75-99)
[2021-02-13] MEDS: IPRATROPIUM-ALBUTEROL 3 ML NEB INHALATION SCH ×2 (21:10→23:47)
[2021-02-14 06:08] LABS: Glucose,Whole Blood 92 mg/dL (75-99)
[2021-02-14] MEDS: PANTOPRAZOLE 40 MG TABLET PO SCH (06:40)
[2021-02-14] MEDS: LEVOTHYROXINE 100 MCG TAB PO SCH (06:40)
[2021-02-14] MEDS: IPRATROPIUM-ALBUTEROL 3 ML NEB INHALATION SCH ×4 (07:54→20:06)
[2021-02-14 08:27] LABS: HCT 35.3 % (34.0-46.0); HGB 10.4 gm/dL (11.4-16.0); Hypochromasia Moderate; MCH 28.2 pg (25.0-35.0); MCHC 29.5 g/dL (31.0-37.0); MCV 95.6 fL (80.0-100.0); Platelet Count 294 k/uL (150-450); WBC 5.8 k/uL (3.8-10.6)
[2021-02-14] MEDS: ASCORBIC ACID 500 MG TAB PO SCH (08:31)
[2021-02-14] MEDS: HYDROcodone/APAP 10-325MG 1 EACH TAB PO SCH (08:31)
[2021-02-14] MEDS: FERROUS SULFATE 325 MG TAB PO SCH ×2 (08:31→16:56)
[2021-02-14] MEDS: LEFLUNOMIDE 20 MG TAB PO SCH (08:32)
[2021-02-14] MEDS: predniSONE 1 MG TAB PO SCH (08:32)
[2021-02-14] MEDS: PREGABALIN 100 MG CAP PO SCH ×2 (08:32→16:56)
[2021-02-14] MEDS: RIVAROXABAN 20 MG TAB PO SCH (08:32)
[2021-02-14] MEDS: POTASSIUM CHLORIDE ER 20 MEQ TAB.ER PO SCH (08:32)
[2021-02-14] MEDS: LACTOBACILLUS ACIDOPH & BULGAR 1 EACH PACKET PO SCH (08:32)
[2021-02-14] MEDS: FUROSEMIDE 20 MG TAB PO SCH (08:32)
[2021-02-14] MEDS: LORATADINE 10 MG TAB PO SCH (08:32)
[2021-02-14 08:45] LABS: Calcium 9.7 mg/dL (8.4-10.2); Potassium 3.9 mmol/L (3.5-5.1); Total Bilirubin 0.5 mg/dL (0.2-1.3); Total Protein 5.5 g/dL (6.3-8.2)
[2021-02-14] MEDS ORDERED: COLLAGENASE 250 UNIT/GM OINTMENT 30 GM TUBE TOPICAL SCH (09:00)
[2021-02-14 09:49] LABS: Hepatitis B Core IgM Non-Reactive (Non-Reactive); Hepatitis B Surface Antigen Non-Reactive (Non-Reactive)
[2021-02-14 09:50] LABS: Hepatitis A Antibody IgM Non-Reactive (Non-Reactive); Hepatitis C IgG Antibody Non-Reactive (Non-Reactive)
[2021-02-14] MEDS ORDERED: VANCOMYCIN IV PER PHARMACY 1 EACH MISC MISCELLANE PRN (11:15)
[2021-02-14 11:36] LABS: Glucose,Whole Blood 134 mg/dL (75-99)
[2021-02-14 12:33] VITALS: BMI 41.0
--- NOTE | 2021-02-14 12:43 | P.CONS ---
History of Present Illness - Reason for Consult Consult date: 02/14/21 wound care - History of Present Illness This 70-year-old patient previously known to the wound care center currently being seen at [facility] by Dr. Medina. Patient has has history of ulcerations to bilateral lower extremities and right buttocks. She has been utilizing Santyl and it appears to be Hydrofera Blue to the ulcerations. Ulcerations are chronic. Patient has multiple ulcerations to the lateral lower extremities which are showing improvement compared to previous admissions. Right buttocks ulceration of the pressure injury that is a stage III, measuring approximately 9 x 7 x 4 cm. The wound margins are thickened and rolled under. There is purulent drainage noted small amount. Patient's past medical history significant for DVT, fibromyalgia, rheumatoid arthritis, hyperthyroidism. Review Of Systems: Constitutional: No fever, no chills, no night sweats. No weight change. No weakness, fatigue or lethargy. No daytime sleepiness. Integumentary:reports wounds, no lesions. No rash or pruritus. No unusual bruising. No change in hair or nails. Physical exam: General Appearance: Alert, cooperative, no distress, appears stated age. Skin: See HPI all other Skin color, texture, tugor normal, no rashes or lesions. Neurologic: Alert oriented x3 Assessment: 1. Pyoderma gangrenosum 2. Venous stasis ulcer of left lower extremity with edema and ulceration 3. Venous stasis ulcer of the right lower extremity edema of the right le 4. Pressure ulcer stage III right buttocks Plan: 1. Apply Santyl to the lower extremity ulcerations. Saline was gauze, dry gauze rolled gauze and secured. 8. 2. right buttocks ulceration: Apply absorptive silver rope moistened, Kerlix for packing, ABD and secure with paper tape. Change Wednesday Thank you for the consultation any questions because contact the wound care center. DNP note has been reviewed and discussed with Dr. Adame and the impression and plan of care has been directed as dictated. Past Medical History Past Medical History: Deep Vein Thrombosis (DVT), Fibromyalgia, GI Bleed, Hypertension, Renal Disease, Rheumatoid Arthritis (RA), Skin Disorder, Thyroid Disorder Additional Past Medical History / Comment(s): Hx bleeding stomach ulcer. CKD, stage II; "Leaky bladder," "poor circulation," current Wound rt buttock, with wound vac, wound left lower leg, Hx Rt hip fx, no surg. 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 Nodule exc from thyroid. Sinus surgery. surgical excision, debridment of sacrum w/ wound VAC placement on 08/05/15 and sx done(flap), developed pin hole leak - had 2nd sx to repair. Debridement wound care to RLE wound on 08/21/15. Past Anesthesia/Blood Transfusion Reactions: No Reported Reaction Additional Past Anesthesia/Blood Transfusion Reaction / Comm: Pt has received blood in past without reaction. Past Psychological History: No Psychological Hx Reported Smoking Status: Never smoker - Past Family History Mother Family Medical History: AFIB, Cancer Additional Family Medical History / Comment(s): skin cancer Father Family Medical History: Cancer, Liver Disease, Rheumatoid Arthritis (RA) Additional Family Medical History / Comment(s): Leukemia. at age 72 of liver problem. Medications and Allergies Home Medications Medication Instructions Recorded Confirmed Type Levothyroxine Sodium [Synthroid] 200 mcg PO DAILY@0600 08/26/17 02/12/21 History Rivaroxaban [Xarelto] 20 mg PO DAILY@0800 07/10/19 02/12/21 History Ferrous Sulfate [Feosol] 325 mg PO BID@0800,1700 09/03/19 02/12/21 History Leflunomide [Arava] 20 mg PO DAILY@0800 10/10/19 02/12/21 History Acetaminophen Tab [Tylenol] 650 mg PO Q6HR PRN tab 02/26/20 02/12/21 Rx Ascorbic Acid [Vitamin C] 500 mg PO DAILY@0800 01/15/21 02/12/21 History Furosemide [Lasix] 40 mg PO DAILY@1700 01/15/21 02/12/21 History Lactobacillus Acidophilus 1 cap PO DAILY@0800 01/15/21 02/12/21 History [Acidophilus Probiotic] Loperamide HCl [Loperamide] 2 mg PO QID PRN 01/15/21 02/12/21 History Loratadine [Claritin] 10 mg PO DAILY@0800 01/15/21 02/12/21 History Ondansetron [Zofran] 4 mg PO Q8HR PRN 01/15/21 02/12/21 History Potassium Chloride [Klor-Con 20] 20 meq PO DAILY@0800 01/15/21 02/12/21 History bisacodyL [Dulcolax] 10 mg RECTAL DAILY PRN 01/15/21 02/12/21 History predniSONE 4 mg PO DAILY@0800 01/15/21 02/12/21 History Collagenase [Santyl] 1 applic TOPICAL DAILY 01/28/21 02/12/21 History Hydrocortisone Cream 1 applic TOPICAL BID PRN 01/28/21 02/12/21 History [Hydrocortisone 1% Cream] Liquacel 30 ml PO TID@0800,1200,1700 01/28/21 02/12/21 History Mag Hydrox/Aluminum Hyd/Simeth 10 ml PO Q4H PRN 01/28/21 02/12/21 History [Mylanta Maximum Strength Liq] Magnesium Hydroxide [Milk of 7,200 mg PO DAILY PRN 01/28/21 02/12/21 History Magnesia Concentrate] Na Phos,M-B/Na Phos,Di-Ba [Fleet 133 ml RECTAL DAILY PRN 01/28/21 02/12/21 History Adult] Sucralfate [Carafate] 1 gm PO TID@0600,1100,1600 01/28/21 02/12/21 History diphenhydrAMINE [Benadryl] 25 mg PO Q6H PRN 01/28/21 02/12/21 History HYDROcodone/APAP 10-325MG [Silver 1 tab PO DAILY@0800 #3 tab 02/04/21 02/12/21 Rx 10-325] HYDROcodone/APAP 10-325MG [Silver 1 tab PO Q8H PRN #9 tab 02/04/21 02/12/21 Rx 10-325] Pregabalin [Lyrica] 100 mg PO BID@0800,1700 #6 cap 02/04/21 02/12/21 Rx fentaNYL 25MCG/HR PATCH [Duragesic 1 patch TRANSDERM Q72H #1 patch 02/04/21 02/12/21 Rx 25MCG/HR] Furosemide [Lasix] 60 mg PO DAILY@0800 02/12/21 02/12/21 History Ipratropium-Albuterol Nebulize 3 ml INHALATION RT-QID@00,06,12,18 02/12/21 02/12/21 History [Duoneb 0.5 mg-3 mg/3 ml Soln] Lactose-Reduced Food [Ensure Plus] 1 can PO BID@0800,1700 02/12/21 02/12/21 History Lidocaine 5% Cream 1 applic TOPICAL DAILY PRN 02/12/21 02/12/21 History Allergies Allergy/AdvReac Type Severity Reaction Status Date / Time cefepime Allergy Rash/Hives Verified 02/12/21 17:06 ceftriaxone [From Rocephin] Allergy Rash/Hives Verified 02/12/21 17:06 Penicillins Allergy Rash/Hives Verified 02/12/21 17:06 POSITIVE TB REACTOR Allergy Unknown Uncoded 02/12/21 15:11 Physical Exam Vitals: Vital Signs Temp Pulse Pulse Resp BP Pulse Ox 02/14/21 08:00 98.8 F 95 16 112/64 93 L 02/14/21 04:00 97.6 F 86 16 92/60 95 02/13/21 23:40 97.8 F 88 16 95/61 95 02/13/21 21:24 72 02/13/21 21:11 76 02/13/21 20:00 98.1 F 86 16 95/64 95 02/13/21 16:00 75 15 106/55 96 02/13/21 14:00 16 Intake and Output 02/13/21 02/14/21 02/14/21 22:59 06:59 14:59 Intake Total 240 240 Output Total 2300 475 Balance -2059 -475 240 Intake: Oral 240 240 Output: Urine 2300 475 Other: Voiding Method Indwelling Catheter Indwelling Catheter Indwelling Catheter Weight 126 kg 126 kg Results CBC & Chem 7: 02/14/21 07:55 02/14/21 07:55 Labs: Abnormal Lab Results - Last 24 Hours (Table) 02/13/21 02/13/21 02/13/21 Range/Units 16:48 16:50 20:09 RBC (3.80-5.40) m/uL Hgb (11.4-16.0) gm/dL MCHC (31.0-37.0) g/dL Chloride (98-107) mmol/L Carbon Dioxide (22-30) mmol/L BUN (7-17) mg/dL Glucose (74-99) mg/dL POC Glucose (mg/dL) 395 H 111 H 152 H (75-99) mg/dL Total Protein (6.3-8.2) g/dL Albumin (3.5-5.0) g/dL 02/14/21 02/14/21 02/14/21 Range/Units 07:55 07:55 11:35 RBC 3.70 L (3.80-5.40) m/uL Hgb 10.4 L (11.4-16.0) gm/dL MCHC 29.5 L (31.0-37.0) g/dL Chloride 97 L (98-107) mmol/L Carbon Dioxide 40 H (22-30) mmol/L BUN 38 H (7-17) mg/dL Glucose 127 H (74-99) mg/dL POC Glucose (mg/dL) 134 H (75-99) mg/dL Total Protein 5.5 L (6.3-8.2) g/dL Albumin 3.0 L (3.5-5.0) g/dL Microbiology - Last 24 Hours (Table) 02/12/21 18:30 Blood Culture Gram Stain - Preliminary Blood Blood Culture - Preliminary Staphylococcus epidermidis 02/12/21 18:30 Blood Culture - Final Blood 02/12/21 15:18 Urine Culture - Preliminary Urine,Voided Gram Neg Bacilli Group D Enterococcus 02/12/21 18:38 Blood Culture - Preliminary Blood No Growth after 24 hours Assessment and Plan (1) Pressure ulcer of right buttock, stage 3 Current Visit: No Status: Acute Code(s): L89.313 - PRESSURE ULCER OF RIGHT BUTTOCK, STAGE 3 SNOMED Code(s): 26618740894575141 (2) Pyoderma gangrenosum Current Visit: No Status: Acute Code(s): L88 - PYODERMA GANGRENOSUM SNOMED Code(s): 73189496 (3) Venous stasis ulcer of left lower leg with edema of left lower leg Current Visit: No Status: Acute Code(s): I83.029 - VARICOSE VEINS OF LEFT LOWER EXTREMITY W ULCER OF UNSP SITE; I83.892 - VARICOSE VEINS OF L LOW EXTREM WITH OTHER COMPLICATIONS; L97.929 - NON-PRS CHRONIC ULC UNSP PRT OF L LOW LEG W UNSP SEVERITY; R60.9 - EDEMA, UNSPECIFIED SNOMED Code(s): 07766377002926559 (4) Venous stasis ulcer of right lower leg with edema of right lower leg Current Visit: No Status: Acute Code(s): I83.019 - VARICOSE VEINS OF RIGHT LOWER EXTREMITY W ULCER OF UNSP SITE; I83.891 - VARICOSE VEINS OF R LOW EXTREM WITH OTHER COMPLICATIONS; L97.919 - NON-PRS CHRONIC ULC UNSP PRT OF R LOW LEG W UNSP SEVERITY; R60.9 - EDEMA, UNSPECIFIED SNOMED Code(s): 00943922727380551
[2021-02-14] MEDS: VANCOMYCIN 2,250 MG in SODIUM CHLORIDE 0.9% 500 ML 500 ML IVPB SCH (13:01)
[2021-02-14] MEDS: COLLAGENASE 250 UNIT/GM OINTMENT 30 GM TUBE TOPICAL SCH (14:00)
--- NOTE | 2021-02-14 14:07 | P.PN ---
Subjective Progress Note Date: 02/13/21 HISTORY OF PRESENT ILLNESS This is a 70-year-old female patient of mine with a previous medical history significant for rheumatoid arthritis with significant deformities, currently wheelchair bound/bedbound, nonhealing wounds for bilateral lower extremities as well as stage IV sacral decubitus ulcer for which she has been treated with a wound VAC, she has been following with the wound healing Center at [facility] with Dr. Medina at [facility] on a weekly basis. She was started on ertapenem on January 23 run for 14 days, transition on January 27 to cefepime 1 g every 12 hour but appeared the patient had a reaction and this was held and patient was started on IV Solu-Medrol. Patient hospitalization February 04 at which time she was treated for metabolic encephalopathy, sepsis, acute Pseudomonas urinary tract infection. Patient was seen and followed by Dr. Rangel with recommendations to discharge patient on no antibiotics and cefepime was discontinued. Patient was to continue local wound care to the bilateral lower legs and wound VAC to the sacral pressure ulcer. At [facility], patient was treated for lower extremity edema with increased Lasix and seemed to be doing fine until yesterday when she was found to have a low blood pressure of 88/52, heart rate was 86. Patient was having complaints of dizziness. Pulse ox was 88. She had a chest x-ray done at the residential which revealed heart failure and patient was transferred to [facility] for evaluation. Patient was found to be afebrile, heart rate 82, initial blood pressure 81/51 f ollowed by 100/63. Pulse ox initially was 88% on room air. CBC was unremarkable. CO2 was 42, creatinine 0.95. Liver function tests were elevated with AST 52, ALT 48, alkaline phosphatase 128. Urinalysis reveals a cholinesterase large, WBCs 14, bacteria many. Urine culture was sent. Chest x-ray revealed mild probably fibrosis. Improvement in the lungs compared to old exam. This is consistent with resolving mild heart failure. Patient was admitted to the cardiac stepdown unit and consult requested with Dr. Rangel. 02/13: Patient remains afebrile, heart rate 90, blood pressure 90/54, pulse ox 90% on 2 L nasal cannula. monitor worker is sinus rhythm. Blood sugars are running between 111 and 152. Acute hepatitis panel is negative. Urine and blood cultures are in progress. Consult added for Dr. Rangel and wound center. She is currently on Levaquin until seen by Dr. Rangel. Discharge plan will be to return to [facility] once patient is stable. REVIEW OF SYSTEMS Constitutional: No fever, no chills, no night sweats. No weight change. Reported weakness, reported fatigue reported lethargy. Reported daytime sleepiness. EENT: No headache. No blurred vision or double vision, no loss of vision. No loss of Hearing, no ringing in the ears, reports dizziness. No nasal drainage or congestion. No epistaxis. No sore throat. Lungs: No shortness of breath, cough, no sputum production. No wheezing. Cardiovascular: No chest pain, no lower extremity edema. No palpitations. No paroxysmal nocturnal dyspnea. No orthopnea. No lightheadedness reports diz ziness. No syncopal episodes. Abdominal: No abdominal pain. No nausea, vomiting. No diarrhea. No constipation. No bloody or tarry stools.. Reported loss of appetite. Genitourinary: No dysuria, increased frequency, urgency. No urinary retention. Musculoskeletal: No myalgias. No muscle weakness, no gait dysfunction, no frequent falls. No back pain. No neck pain. Integumentary: Noted wounds, chronic to bilateral lower legs which are healing nicely and decubitus sacrum. No rash or pruritus. No unusual bruising. No change in hair or nails. Neurologic: No aphasia. No facial droop. Noted change in mentation. No head injury. No headache. No paralysis. No paresthesia. Psychiatric: No depression. No anxiety. No mood swings. Endocrine: No abnormal blood sugars, controlled. PHYSICAL EXAMINATION Gen: This is is a morbidly obese 70-year-old white female. She is resting in bed. She appears to be comfortable. HEENT: Head is atraumatic, normocephalic. Pupils equal, round. Sclerae is anicteric. NECK: Supple. No JVD. No lymphadenopathy. No thyromegaly. LUNGS: Clear to auscultation. No wheezes or rhonchi. No intercostal retractions. HEART: First heart sound is depressed, second heart sounds normal, there is systolic murmur 2/6. Left sternal border. ABDOMEN: Soft. Bowel sounds are present. No masses. No tenderness. EXTREMITIES: No pedal edema. No calf tenderness. Wounds to the coccyx area, wounds to the bilateral lower extremities are healing. NEUROLOGICAL: Patient is awake, alert and oriented to person and place. Generalized weakness. ASSESSMENT AND PLAN 1. Hypotension possibly related to sepsis secondary to acute urinary tract infection. Consult with Dr. Rangel. Continue Levaquin for now. Urine culture and blood culture in progress. 2. Bilateral nonhealing wounds to the lower extremities and chronic sacral decubitus. Patient has been under the care of the wound center and Dr. Medina at [facility]. Wound Center consult. 3. Elevated liver function tests. Recheck in the morning. Acute hepatitis panel ordered. 4. Rheumatoid arthritis with chronic pain, significant deformities, wheelchair bound. Continue fentanyl patch 25 g per hour every 72 hours, [place] 10 one every 8 hours as needed and 1 daily, Lyrica 100 mg twice daily, Araiva 20 mg daily. 5. 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 Continue oral prednisone at 4 mg daily. 6. Anemia of chronic illness. Continue ferrous sulfate 325 mg twice daily. 7. History of DVT. Xarelto 20 mg daily. 8. Hypothyroidism. Continue levothyroxine 200 g daily. 9. Peripheral neuropathy. Continue patient on Lyrica 100 mg orally twice every day. 10. Chronic Charles catheter. Due to nonhealing decubitus ulcers. 11. DVT prophylaxis. We will maintain the patient on Xarelto 20 mg orally once every day. 12. GI prophylaxis. We will maintain patient on Protonix 40 mg once every day. 14. Patient is full code. DISCHARGE PLAN Return to [facility]. Impression and plan of care have been directed as dictated by the signing physician. Arlene Darnell nurse practitioner acting as scribe for signing physician. Objective - Vital Signs Vital signs: Vital Signs Temp 97.6 F 02/14/21 04:00 Pulse 86 02/14/21 04:00 Resp 16 02/14/21 04:00 BP 92/60 02/14/21 04:00 Pulse Ox 95 02/14/21 04:00 Intake & Output 02/13/21 02/14/21 02/14/21 18:59 06:59 18:59 Intake Total 780 Output Total 1800 975 Balance -1020 -975 Weight 126 kg Intake: Oral 780 Output: Urine 1800 975 Other: Voiding Method Indwelling Catheter Indwelling Catheter - Labs CBC & Chem 7: 02/14/21 07:55 02/14/21 07:55 Labs: Abnormal Lab Results - Last 24 Hours (Table) 02/13/21 02/13/21 02/13/21 Range/Units 09:24 11:35 16:48 Chloride 95 L (98-107) mmol/L Carbon Dioxide 39 H (22-30) mmol/L BUN 51 H (7-17) mg/dL Glucose 132 H (74-99) mg/dL POC Glucose (mg/dL) 130 H 395 H (75-99) mg/dL 02/13/21 02/13/21 Range/Units 16:50 20:09 Chloride (98-107) mmol/L Carbon Dioxide (22-30) mmol/L BUN (7-17) mg/dL Glucose (74-99) mg/dL POC Glucose (mg/dL) 111 H 152 H (75-99) mg/dL Microbiology - Last 24 Hours (Table) 02/12/21 18:30 Blood Culture - Final Blood 02/12/21 15:18 Urine Culture - Preliminary Urine,Voided Gram Neg Bacilli Group D Enterococcus 02/12/21 18:38 Blood Culture - Preliminary Blood No Growth after 24 hours
--- NOTE | 2021-02-14 15:24 | P.CONS ---
History of Present Illness - Reason for Consult Consult date: 02/13/21 urinary tract infection Requesting physician: Cierra Moyer - Chief Complaint weakness x 1 day - History of Present Illness Patient is a 70-year-old female with a past medical history significant for chronic nonhealing wound to the sacral area along with a pressure ulcer to the left leg currently being taken care off at the senior care by her wound care physician. Patient was recently admitted this facility with concern for a catheter associated infection urine culture did grow multidrug-resistant pseudomonas followed by VRE which were thought to be related to possible Charles colonization as the patient did not have any symptoms no fever or elevated white count patient was subsequently discharged to senior care on no antibiotics. Patient is now being brought back to the ER for evaluation of hypotension, apparently the patient recently has been treated for fluid overload with increased dose of Lasix. Patient was complaining of feeling lightheaded. There is no clear history of any fever or chills, patient denies having any chest pain, shortness of breath or cough no abdominal pain, patient did have a chronic indwelling Charles catheter. She is not clear when the last time it was changed, patient denies having any worsening pain to the sacral as well as left leg wound area patient to the eye was afebrile, patient did have a normal white count p atient did have positive UA with large leukocyte esterase, 14 WBC, patient was started on Levaquin has been unable to the hospital. Infectious disease was consulted for further management of antibiotic therapy Review of Systems Positive point has been mentioned in the HPI rest of the systems are negative Past Medical History Past Medical History: Deep Vein Thrombosis (DVT), Fibromyalgia, GI Bleed, Hypertension, Renal Disease, Rheumatoid Arthritis (RA), Skin Disorder, Thyroid Disorder Additional Past Medical History / Comment(s): Hx bleeding stomach ulcer. CKD, stage II; "Leaky bladder," "poor circulation," current Wound rt buttock, with wound vac, wound left lower leg, Hx Rt hip fx, no surg. 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 Nodule exc from thyroid. Sinus surgery. surgical excision, debridment of sacrum w/ wound VAC placement on 08/05/15 and sx done(flap), developed pin hole leak - had 2nd sx to repair. Debridement wound care to RLE wound on 08/21/15. Past Anesthesia/Blood Transfusion Reactions: No Reported Reaction Additional Past Anesthesia/Blood Transfusion Reaction / Comm: Pt has received blood in past without reaction. Past Psychological History: No Psychological Hx Reported Smoking Status: Never smoker - Past Family History Mother Family Medical History: AFIB, Cancer Additional Family Medical History / Comment(s): skin cancer Father Family Medical History: Cancer, Liver Disease, Rheumatoid Arthritis (RA) Additional Family Medical History / Comment(s): Leukemia. at age 72 of liver problem. Medications and Allergies Home Medications Medication Instructions Recorded Confirmed Type Levothyroxine Sodium [Synthroid] 200 mcg PO DAILY@0600 08/26/17 02/12/21 History Rivaroxaban [Xarelto] 20 mg PO DAILY@0800 07/10/19 02/12/21 History Ferrous Sulfate [Feosol] 325 mg PO BID@0800,1700 09/03/19 02/12/21 History Leflunomide [Arava] 20 mg PO DAILY@0800 10/10/19 02/12/21 History Acetaminophen Tab [Tylenol] 650 mg PO Q6HR PRN tab 02/26/20 02/12/21 Rx Ascorbic Acid [Vitamin C] 500 mg PO DAILY@0800 01/15/21 02/12/21 History Furosemide [Lasix] 40 mg PO DAILY@1700 01/15/21 02/12/21 History Lactobacillus Acidophilus 1 cap PO DAILY@0800 01/15/21 02/12/21 History [Acidophilus Probiotic] Loperamide HCl [Loperamide] 2 mg PO QID PRN 01/15/21 02/12/21 History Loratadine [Claritin] 10 mg PO DAILY@0800 01/15/21 02/12/21 History Ondansetron [Zofran] 4 mg PO Q8HR PRN 01/15/21 02/12/21 History Potassium Chloride [Klor-Con 20] 20 meq PO DAILY@0800 01/15/21 02/12/21 History bisacodyL [Dulcolax] 10 mg RECTAL DAILY PRN 01/15/21 02/12/21 History predniSONE 4 mg PO DAILY@0800 01/15/21 02/12/21 History Collagenase [Santyl] 1 applic TOPICAL DAILY 01/28/21 02/12/21 History Hydrocortisone Cream 1 applic TOPICAL BID PRN 01/28/21 02/12/21 History [Hydrocortisone 1% Cream] Liquacel 30 ml PO TID@0800,1200,1700 01/28/21 02/12/21 History Mag Hydrox/Aluminum Hyd/Simeth 10 ml PO Q4H PRN 01/28/21 02/12/21 History [Mylanta Maximum Strength Liq] Magnesium Hydroxide [Milk of 7,200 mg PO DAILY PRN 01/28/21 02/12/21 History Magnesia Concentrate] Na Phos,M-B/Na Phos,Di-Ba [Fleet 133 ml RECTAL DAILY PRN 01/28/21 02/12/21 H istory Adult] Sucralfate [Carafate] 1 gm PO TID@0600,1100,1600 01/28/21 02/12/21 History diphenhydrAMINE [Benadryl] 25 mg PO Q6H PRN 01/28/21 02/12/21 History HYDROcodone/APAP 10-325MG [[place] 1 tab PO DAILY@0800 #3 tab 02/04/21 02/12/21 Rx 10-325] HYDROcodone/APAP 10-325MG [[place] 1 tab PO Q8H PRN #9 tab 02/04/21 02/12/21 Rx 10-325] Pregabalin [Lyrica] 100 mg PO BID@0800,1700 #6 cap 02/04/21 02/12/21 Rx fentaNYL 25MCG/HR PATCH [Duragesic 1 patch TRANSDERM Q72H #1 patch 02/04/21 02/12/21 Rx 25MCG/HR] Furosemide [Lasix] 60 mg PO DAILY@0800 02/12/21 02/12/21 History Ipratropium-Albuterol Nebulize 3 ml INHALATION RT-QID@00,06,12,18 02/12/21 02/12/21 History [Duoneb 0.5 mg-3 mg/3 ml Soln] Lactose-Reduced Food [Ensure Plus] 1 can PO BID@0800,1700 02/12/21 02/12/21 History Lidocaine 5% Cream 1 applic TOPICAL DAILY PRN 02/12/21 02/12/21 History Allergies Allergy/AdvReac Type Severity Reaction Status Date / Time cefepime Allergy Rash/Hives Verified 02/12/21 17:06 ceftriaxone [From Rocephin] Allergy Rash/Hives Verified 02/12/21 17:06 Penicillins Allergy Rash/Hives Verified 02/12/21 17:06 POSITIVE TB REACTOR Allergy Unknown Uncoded 02/12/21 15:11 Physical Exam Vitals: Vital Signs Temp Pulse Pulse Resp BP Pulse Ox 02/13/21 21:24 72 02/13/21 21:11 76 02/13/21 20:00 98.1 F 86 16 95/64 95 02/13/21 16:00 75 15 106/55 96 02/13/21 14:00 16 02/13/21 12:00 87 16 99/53 100 02/13/21 08:00 98.3 F 90 16 90/54 90 L 02/13/21 04:00 82 22 110/68 94 L 02/13/21 02:00 82 02/13/21 00:00 98 18 94/60 95 Intake and Output 02/13/21 02/13/21 02/14/21 14:59 22:59 06:59 Intake Total 540 240 Output Total 2300 Balance 540 -2060 Intake: Oral 540 240 Output: Urine 2300 Other: Voiding Method Indwelling Catheter GENERAL DESCRIPTION: An elderly female lying in bed, no distress. No tachypnea or accessory muscle of respiration use. HEENT: Shows Pallor , no scleral icterus. Oral mucous membrane is dry. No phar yngeal erythema or thrush NECK: Trachea central, no thyromegaly. LUNGS: Unlabored breathing. Decreased breath sound at the base. No wheeze or crackle. HEART: S1, S2, regular rate and rhythm. No loud murmur ABDOMEN: Soft, no tenderness , guarding or rigidity, no organomegaly EXTREMITIES: Left leg wound base looks clean with no significant slough tissue surrounding redness, patient did have a pressure ulcer to the sacrum area with no slough tissue surrounding redness or any drainage SKIN: No rash, no masses palpable. NEUROLOGICAL: The patient is awake, alert, oriented x3, mood and affect normal. Results CBC & Chem 7: 02/14/21 07:55 02/14/21 07:55 Labs: Abnormal Lab Results - Last 24 Hours (Table) 02/13/21 02/13/21 02/13/21 Range/Units 09:24 11:35 16:48 Chloride 95 L (98-107) mmol/L Carbon Dioxide 39 H (22-30) mmol/L BUN 51 H (7-17) mg/dL Glucose 132 H (74-99) mg/dL POC Glucose (mg/dL) 130 H 395 H (75-99) mg/dL 02/13/21 02/13/21 Range/Units 16:50 20:09 Chloride (98-107) mmol/L Carbon Dioxide (22-30) mmol/L BUN (7-17) mg/dL Glucose (74-99) mg/dL POC Glucose (mg/dL) 111 H 152 H (75-99) mg/dL Microbiology - Last 24 Hours (Table) 02/12/21 15:18 Urine Culture - Preliminary Urine,Voided Gram Neg Bacilli Group D Enterococcus 02/12/21 18:38 Blood Culture - Preliminary Blood No Growth after 24 hours 02/12/21 18:30 Blood Culture - Preliminary Blood No Growth after 24 hours Assessment and Plan Assessment: 1- patient presented to the hospital with weakness and hypotension could be related to overdiuresis and dehydration, clinically not behaving as sepsis , patient is afebrile and did have a normal white count 2-positive UA, questionable related to her colonization UTI less likely but not entirely excluded 3-pressure ulcer to the sacral area, left leg with no evidence of cellulitis 4-Patient with multiple antibiotic ALLERGIES that would limit the number of antibiotic safe to use Plan: 1- we will change her Charles catheter and obtain a UA and urine culture from the new Charles 2-may continue Levaquin for now while waiting for the culture finalized 3- local wound care to the left leg wound with Hydrofera Blue dressing and wound VAC to the sacral wound area We will follow on clinical condition and cultures to further adjust medication if needed Thank you for this consultation will follow this patient with you Time with Patient: Greater than 30
--- NOTE | 2021-02-14 15:36 | P.PN ---
Subjective Progress Note Date: 02/14/21 HISTORY OF PRESENT ILLNESS This is a 70-year-old female patient of mine with a previous medical history significant for rheumatoid arthritis with significant deformities, currently wheelchair bound/bedbound, nonhealing wounds for bilateral lower extremities as well as stage IV sacral decubitus ulcer for which she has been treated with a wound VAC, she has been following with the wound healing Center at [facility] with Dr. Medina at [facility] on a weekly basis. She was started on ertapenem on January 23 run for 14 days, transition on January 27 to cefepime 1 g every 12 hour but appeared the patient had a reaction and this was held and patient was started on IV Solu-Medrol. Patient hospitalization February 04 at which time she was treated for metabolic encephalopathy, sepsis, acute Pseudomonas urinary tract infection. Patient was seen and followed by Dr. Rangel with recommendations to discharge patient on no antibiotics and cefepime was discontinued. Patient was to continue local wound care to the bilateral lower legs and wound VAC to the sacral pressure ulcer. At [facility], patient was treated for lower extremity edema with increased Lasix and seemed to be doing fine until yesterday when she was found to have a low blood pressure of 88/52, heart rate was 86. Patient was having complaints of dizziness. Pulse ox was 88. She had a chest x-ray done at the detention which revealed heart failure and patient was transferred to [facility] for evaluation. Patient was found to be afebrile, heart rate 82, initial blood pressure 81/51 f ollowed by 100/63. Pulse ox initially was 88% on room air. CBC was unremarkable. CO2 was 42, creatinine 0.95. Liver function tests were elevated with AST 52, ALT 48, alkaline phosphatase 128. Urinalysis reveals a cholinesterase large, WBCs 14, bacteria many. Urine culture was sent. Chest x-ray revealed mild probably fibrosis. Improvement in the lungs compared to old exam. This is consistent with resolving mild heart failure. Patient was admitted to the cardiac stepdown unit and consult requested with Dr. Rangel. 02/13: Patient remains afebrile, heart rate 90, blood pressure 90/54, pulse ox 90% on 2 L nasal cannula. 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 Blood sugars are running between 111 and 152. Acute hepatitis panel is negative. Urine and blood cultures are in progress. Consult added for Dr. Rangel and wound center. She is currently on Levaquin until seen by Dr. Rangel. Discharge plan will be to return to [facility] once patient is stable. 02/14: Patient denies any new complaints today but does have complaints of chronic arthritic pain. Dr. Rangel has requested a repeat urinalysis and if this is clear she will be good for discharge. Most likely since urinalysis has not been obtained at this point, patient would be a discharge tomorrow. She has been afebrile, heart rate 95, blood pressure 112/64, pulse ox 93% on 2 L. Patient is also been seen by wound team and plan is to continue same wound care as at [facility]. Repeat blood work reveals hemoglobin 10.4, WBC 5.8. BUN 38, creatinine 0.82, CO2 40. Blood sugars are running between 92 and 152. Patient will be discharged most likely tomorrow morning. REVIEW OF SYSTEMS Constitutional: No fever, no chills, no night sweats. No weight change. Reported weakness, reported fatigue reported lethargy. Reported daytime sleepiness. EENT: No headache. No blurred vision or double vision, no loss of vision. No loss of Hearing, no ringing in the ears, reports dizziness. No nasal drainage or congestion. No epistaxis. No sore throat. Lungs: No shortness of breath, cough, no sputum production. No wheezing. Cardiovascular: No chest pain, no lower extremity edema. No palpitations. No paroxysmal nocturnal dyspnea. No orthopnea. No lightheadedness reports dizziness. No syncopal episodes. Abdominal: No abdominal pain. No nausea, vomiting. No diarrhea. No constipation. No bloody or tarry stools.. Reported loss of appetite. Genitourinary: No dysuria, increased frequency, urgency. No urinary retention. Musculoskeletal: No myalgias. No muscle weakness, no gait dysfunction, no frequent falls. No back pain. No neck pain. Integumentary: Noted wounds, chronic to bilateral lower legs which are healing nicely and decubitus sacrum. No rash or pruritus. No unusual bruising. No change in hair or nails. Neurologic: No aphasia. No facial droop. Noted change in mentation. No head injury. No headache. No paralysis. No paresthesia. Psychiatric: No depression. No anxiety. No mood swings. Endocrine: No abnormal blood sugars, controlled. PHYSICAL EXAMINATION Gen: This is is a morbidly obese 70-year-old white female. She is resting in bed. She appears to be comfortable. HEENT: Head is atraumatic, normocephalic. Pupils equal, round. Sclerae is anicteric. NECK: Supple. No JVD. No lymphadenopathy. No thyromegaly. LUNGS: Clear to auscultation. No wheezes or rhonchi. No intercostal retractions. HEART: First heart sound is depressed, second heart sounds normal, there is systolic murmur 2/6. Left sternal border. ABDOMEN: Soft. Bowel sounds are present. No masses. No tenderness. EXTREMITIES: No pedal edema. No calf tenderness. Wounds to the coccyx area, wounds to the bilateral lower extremities are healing. NEUROLOGICAL: Patient is awake, alert and oriented to person and place. Generalized weakness. ASSESSMENT AND PLAN 1. Hypotension possibly related to sepsis secondary to acute urinary tract infection. Consult with Dr. Rangel. Continue Levaquin for now. Urine culture and blood culture in progress. 2. Bilateral nonhealing wounds to the lower extremities and chronic sacral decubitus. Patient has been under the care of the wound center and Dr. Medina at [facility]. Wound Center consult. 3. Elevated liver function tests. Recheck in the morning. Acute hepatitis panel ordered. 4. Rheumatoid arthritis with chronic pain, significant deformities, wheelchair bound. Continue fentanyl patch 25 g per hour every 72 hours, [place] 10 one every 8 hours as needed and 1 daily, Lyrica 100 mg twice daily, Araiva 20 mg daily. 5. Adrenal insufficiency secondary to correction use of steroids and sepsis. Continue oral prednisone at 4 mg daily. 6. Anemia of chronic illness. Continue ferrous sulfate 325 mg twice daily. 7. History of DVT. Xarelto 20 mg daily. 8. Hypothyroidism. Continue levothyroxine 200 g daily. 9. Peripheral neuropathy. Continue patient on Lyrica 100 mg orally twice every day. 10. Chronic Charles catheter. Due to nonhealing decubitus ulcers. 11. DVT prophylaxis. We will maintain the patient on Xarelto 20 mg orally once every day. 12. GI prophylaxis. We will maintain patient on Protonix 40 mg once every day. 14. Patient is full code. DISCHARGE PLAN Return to [facility] on Wednesday. Impression and plan of care have been directed as dictated by the signing physician. Arlene Darnell nurse practitioner acting as scribe for signing physician. Objective - Vital Signs Vital signs: Vital Signs Temp 98.8 F 02/14/21 08:00 Pulse 83 02/14/21 12:00 Resp 16 02/14/21 12:00 BP 104/75 02/14/21 12:00 Pulse Ox 95 02/14/21 12:00 Intake & Output 02/13/21 02/14/21 02/14/21 18:59 06:59 18:59 Intake Total 780 1340 Output Total 5826 379 0591 Balance -1020 -975 340 Weight 126 kg 126 kg Intake: Intake, IV Titration 500 Amount Vancomycin 2,250 mg In 500 Sodium Chloride 0.9% 500 ml 500 ml @ 167 mls/hr IVPB Q24HR HANY Rx#: [id number] Oral 780 840 Output: Urine 2444 068 1690 Other: Voiding Method Indwelling Catheter Indwelling Catheter Indwelling Catheter - Labs CBC & Chem 7: 02/14/21 07:55 02/14/21 07:55 Labs: Abnormal Lab Results - Last 24 Hours (Table) 02/13/21 02/13/21 02/13/21 Range/Units 16:48 16:50 20:09 RBC (3.80-5.40) m/uL Hgb (11.4-16.0) gm/dL MCHC (31.0-37.0) g/dL Chloride (98-107) mmol/L Carbon Dioxide (22-30) mmol/L BUN (7-17) mg/dL Glucose (74-99) mg/dL POC Glucose (mg/dL) 395 H 111 H 152 H (75-99) mg/dL Total Protein (6.3-8.2) g/dL Albumin (3.5-5.0) g/dL 02/14/21 02/14/21 02/14/21 Range/Units 07:55 07:55 11:35 RBC 3.70 L (3.80-5.40) m/uL Hgb 10.4 L (11.4-16.0) gm/dL MCHC 29.5 L (31.0-37.0) g/dL Chloride 97 L (98-107) mmol/L Carbon Dioxide 40 H (22-30) mmol/L BUN 38 H (7-17) mg/dL Glucose 127 H (74-99) mg/dL POC Glucose (mg/dL) 134 H (75-99) mg/dL Total Protein 5.5 L (6.3-8.2) g/dL Albumin 3.0 L (3.5-5.0) g/dL Microbiology - Last 24 Hours (Table) 02/12/21 18:30 Blood Culture Gram Stain - Preliminary Blood Blood Culture - Preliminary Staphylococcus epidermidis 02/12/21 18:30 Blood Culture - Final Blood 02/12/21 15:18 Urine Culture - Preliminary Urine,Voided Gram Neg Bacilli Group D Enterococcus 02/12/21 18:38 Blood Culture - Preliminary Blood No Growth after 24 hours
--- NOTE | 2021-02-14 15:43 | P.DS ---
Providers Date of admission: 02/12/21 17:56 Expected date of discharge: 02/15/21 Attending physician: Cierra Moyer Consults: 02/13/21 15:59 Consult Physician Routine Consulting Provider: Jocelyn Rangel Consult Reason/Comments: uti, decubs Do you want consulting provider notified?: Yes Primary care physician: Cierra Moyer [facility] Course: HISTORY OF PRESENT ILLNESS This is a 70-year-old female patient of mine with a previous medical history significant for rheumatoid arthritis with significant deformities, currently wheelchair bound/bedbound, nonhealing wounds for bilateral lower extremities as well as stage IV sacral decubitus ulcer for which she has been treated with a wound VAC, she has been following with the wound healing Center at [facility] with Dr. Medina at [facility] on a weekly basis. She was started on ertapenem on January 23 run for 14 days, transition on January 27 to cefepime 1 g every 12 hour but appeared the patient had a reaction and this was held and patient was started on IV Solu-Medrol. Patient hospitalization February 04 at which time she was treated for metabolic encephalopathy, sepsis, acute Pseudomonas urinary tract infection. Patient was seen and followed by Dr. Rangel with recommendations to discharge patient on no antibiotics and cefepime was discontinued. Patient was to continue local wound care to the bilateral lower legs and wound VAC to the sacral pressure ulcer. At [facility], patient was treated for lower extremity edema with increased Lasix and seemed to be doing fine until yesterday when she was found to have a low blood pressure of 88/52, heart rate was 86. Patient was having complaints of dizziness. Pulse ox was 88. She had a chest x-ray done at the residential which revealed heart failure and patient was transferred to [facility] for evaluation. Patient was found to be afebrile, heart rate 82, initial blood pressure 81/51 followed by 100/63. Pulse ox initially was 88% on room air. CBC was unremarkable. CO2 was 42, creatinine 0.95. Liver function tests were elevated with AST 52, ALT 48, alkaline phosphatase 128. Urinalysis reveals a cholinesterase large, WBCs 14, bacteria many. Urine culture was sent. Chest x- ray revealed mild probably fibrosis. Improvement in the lungs compared to old exam. This is consistent with resolving mild heart failure. Patient was admitted to the cardiac stepdown unit and consult requested with Dr. Rangel. 02/13: Patient remains afebrile, heart rate 90, blood pressure 90/54, pulse ox 90% on 2 L nasal cannula. 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 Blood sugars are running between 111 and 152. Acute hepatitis panel is negative. Urine and blood cultures are in progress. Consult added for Dr. Rangel and wound center. She is currently on Levaquin until seen by Dr. Rangel. Discharge plan will be to return to [facility] once patient is stable. 02/14: Patient denies any new complaints today but does have complaints of chronic arthritic pain. Dr. Rangel has requested a repeat urinalysis and if this is clear she will be good for discharge. Most likely since urinalysis has not been obtained at this point, patient would be a discharge tomorrow. She has been afebrile, heart rate 95, blood pressure 112/64, pulse ox 93% on 2 L. Patient is also been seen by wound team and plan is to continue same wound care as at [facility]. Repeat blood work reveals hemoglobin 10.4, WBC 5.8. BUN 38, creatinine 0.82, CO2 40. Blood sugars are running between 92 and 152. Patient will be discharged most likely tomorrow morning. Urine culture was positive for Pseudomonas and Dr. Rangel recommended Levaquin for 1 week course at the residential. Patient discharged in stable condition. ASSESSMENT AND PLAN 1. Hypotension possibly related to sepsis secondary to acute Pseudomonas catheter associated urinary tract infection. 2. Bilateral nonhealing wounds to the lower extremities and chronic sacral decubitus. 3. Elevated liver function tests. 4. Rheumatoid arthritis with chronic pain, significant deformities, wheelchair bound. 5. 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 6. Anemia of chronic illness. 7. History of DVT. 8. Hypothyroidism. 9. Peripheral neuropathy. 10. Chronic Charles catheter. Due to nonhealing decubitus ulcers. DISCHARGE PLAN Return to [facility] on Wednesday. Impression and plan of care have been directed as dictated by the signing physician. Arlene Darnell nurse practitioner acting as scribe for signing physician. Patient Condition at Discharge: Stable Plan - Discharge Summary Discharge Rx Participant: Yes New Discharge Prescriptions: New Furosemide [Lasix] 40 mg PO DAILY tab Collagenase [Santyl] 1 applic TOPICAL DAILY applic Levofloxacin [Levaquin] 250 mg PO DAILY@1800 7 Days #7 tab predniSONE 3 mg PO DAILY@0900 tab Continue Levothyroxine Sodium [Synthroid] 200 mcg PO DAILY@0600 Rivaroxaban [Xarelto] 20 mg PO DAILY@0800 Ferrous Sulfate [Feosol] 325 mg PO BID@0800,1700 Leflunomide [Arava] 20 mg PO DAILY@0800 Acetaminophen Tab [Tylenol] 650 mg PO Q6HR PRN tab PRN Reason: Fever And/ Or Pain Ondansetron [Zofran] 4 mg PO Q8HR PRN PRN Reason: Nausea Collagenase [Santyl] 1 applic TOPICAL DAILY Na Phos,M-B/Na Phos,Di-Ba [Fleet Adult] 133 ml RECTAL DAILY PRN PRN Reason: Constipation Mag Hydrox/Aluminum Hyd/Simeth [Mylanta Maximum Strength Liq] 10 ml PO Q4H PRN PRN Reason: Gi Upset Ipratropium-Albuterol Nebulize [Duoneb 0.5 mg-3 mg/3 ml Soln] 3 ml INHALATION RT-QID@00,06,12,18 Lactose-Reduced Food [Ensure Plus] 1 can PO BID@0800,1700 fentaNYL 25MCG/HR PATCH [Duragesic 25MCG/HR] 1 patch TRANSDERM Q72H #1 patch HYDROcodone/APAP 10-325MG [[place] 10-325] 1 tab PO DAILY@0800 #3 tab Potassium Chloride [Klor-Con 20] 20 meq PO DAILY@0800 Loperamide HCl [Loperamide] 2 mg PO QID PRN PRN Reason: Diarrhea Lactobacillus Acidophilus [Acidophilus Probiotic] 1 cap PO DAILY@0800 Ascorbic Acid [Vitamin C] 500 mg PO DAILY@0800 bisacodyL [Dulcolax] 10 mg RECTAL DAILY PRN PRN Reason: Constipation Loratadine [Claritin] 10 mg PO DAILY@0800 Magnesium Hydroxide [Milk of Magnesia Concentrate] 7,200 mg PO DAILY PRN PRN Reason: Constipation Hydrocortisone Cream [Hydrocortisone 1% Cream] 1 applic TOPICAL BID PRN PRN Reason: Rash Sucralfate [Carafate] 1 gm PO TID@0600,1100,1600 Liquacel 30 ml PO TID@0800,1200,1700 Lidocaine 5% Cream 1 applic TOPICAL DAILY PRN PRN Reason: WOUNDS Pregabalin [Lyrica] 100 mg PO BID@0800,1700 #6 cap HYDROcodone/APAP 10-325MG [[place] 10-325] 1 tab PO Q8H PRN #9 tab PRN Reason: Pain Discontinued predniSONE 4 mg PO DAILY@0800 Furosemide [Lasix] 40 mg PO DAILY@1700 diphenhydrAMINE [Benadryl] 25 mg PO Q6H PRN PRN Reason: RASH/PRURITUS Furosemide [Lasix] 60 mg PO DAILY@0800 Discharge Medication List Levothyroxine Sodium [Synthroid] 200 mcg PO DAILY@0600 08/26/17 [History] Rivaroxaban [Xarelto] 20 mg PO DAILY@0800 07/10/19 [History] Ferrous Sulfate [Feosol] 325 mg PO BID@0800,1700 09/03/19 [History] Leflunomide [Arava] 20 mg PO DAILY@0800 10/10/19 [History] Acetaminophen Tab [Tylenol] 650 mg PO Q6HR PRN tab 02/26/20 [Rx] Ascorbic Acid [Vitamin C] 500 mg PO DAILY@0800 01/15/21 [History] Lactobacillus Acidophilus [Acidophilus Probiotic] 1 cap PO DAILY@0800 01/15/21 [History] Loperamide HCl [Loperamide] 2 mg PO QID PRN 01/15/21 [History] Loratadine [Claritin] 10 mg PO DAILY@0800 01/15/21 [History] Ondansetron [Zofran] 4 mg PO Q8HR PRN 01/15/21 [History] Potassium Chloride [Klor-Con 20] 20 meq PO DAILY@0800 01/15/21 [History] bisacodyL [Dulcolax] 10 mg RECTAL DAILY PRN 01/15/21 [History] Collagenase [Santyl] 1 applic TOPICAL DAILY 01/28/21 [History] Hydrocortisone Cream [Hydrocortisone 1% Cream] 1 applic TOPICAL BID PRN 01/28/21 [History] Liquacel 30 ml PO TID@0800,1200,1700 01/28/21 [History] Mag Hydrox/Aluminum Hyd/Simeth [Mylanta Maximum Strength Liq] 10 ml PO Q4H PRN 01/28/21 [History] Magnesium Hydroxide [Milk of Magnesia Concentrate] 7,200 mg PO DAILY PRN 01/28/21 [History] Na Phos,M-B/Na Phos,Di-Ba [Fleet Adult] 133 ml RECTAL DAILY PRN 01/28/21 [History] Sucralfate [Carafate] 1 gm PO TID@0600,1100,1600 01/28/21 [History] Ipratropium-Albuterol Nebulize [Duoneb 0.5 mg-3 mg/3 ml Soln] 3 ml INHALATION RT-QID@00,06,12,18 02/12/21 [History] Lactose-Reduced Food [Ensure Plus] 1 can PO BID@0800,1700 02/12/21 [History] Lidocaine 5% Cream 1 applic TOPICAL DAILY PRN 02/12/21 [History] Collagenase [Santyl] 1 applic TOPICAL DAILY applic 02/14/21 [Rx] HYDROcodone/APAP 10-325MG [[place] 10-325] 1 tab PO DAILY@0800 #3 tab 02/14/21 [Rx] HYDROcodone/APAP 10-325MG [[place] 10-325] 1 tab PO Q8H PRN #9 tab 02/14/21 [Rx] Pregabalin [Lyrica] 100 mg PO BID@0800,1700 #6 cap 02/14/21 [Rx] fentaNYL 25MCG/HR PATCH [Duragesic 25MCG/HR] 1 patch TRANSDERM Q72H #1 patch 02/14/21 [Rx] Furosemide [Lasix] 40 mg PO DAILY tab 02/15/21 [Rx] Levofloxacin [Levaquin] 250 mg PO DAILY@1800 7 Days #7 tab 02/15/21 [Rx] predniSONE 3 mg PO DAILY@0900 tab 02/15/21 [Rx] Follow up Appointment(s)/Referral(s): Cierra Moyer MD [Primary Care Provider] - 1 Week (at [facility]) Activity/Diet/Wound Care/Special Instructions: Antibiotics will be determined by Dr. Jolly after repeat urinalysis obtained. Discharge Disposition: TRANSFER TO [facility]
[2021-02-14 16:48] LABS: Glucose,Whole Blood 180 mg/dL (75-99)
[2021-02-14] MEDS: LEVOFLOXACIN 250MG-D5W PMX 250 MG in DEXTROSE/WATER 1 50ML.BAG IVPB SCH (16:56)
[2021-02-14] MEDS: FUROSEMIDE 40 MG TAB PO SCH (16:56)
[2021-02-14 17:32] LABS: Appearance,Urine Clear (Clear); Bacteria,Urine Rare /hpf; Bilirubin,Urine Negative (Negative); Blood,Urine Negative (Negative); Color,Urine Light Yellow; Glucose,Urine (UA) Negative (Negative); Ketones,Urine Negative (Negative); Leukocyte Esterase,Urine Large (Negative); Mucus,Urine Rare /hpf; Nitrite,Urine Negative (Negative); PH, Urine 6.5 (5.0-8.0); Protein,Urine Negative (Negative); RBC,Urine 3 /hpf (0-5); Specific Gravity,Urine 1.008 (1.001-1.035); Urobilinogen,Urine <2.0 mg/dL (<2.0); WBC,Urine 30 /hpf (0-5)
--- NOTE | 2021-02-14 18:01 | PN ---
PROGRESS NOTE DATE OF SERVICE: 02/14/2021 REASON FOR FOLLOWUP: 1. Possible concern for urinary tract infection versus Charles colonization. 2. Sacral pressure ulcer and left leg ulcer. INTERVAL HISTORY: The patient is afebrile. The patient is breathing comfortably. The patient denies having any chest pain, shortness of breath or cough. No nausea or abdominal pain. PHYSICAL EXAMINATION: Blood pressure 104/75, pulse of 83, temperature 98.8. She is 95% on room air. General description is an elderly female lying in no distress. Respiratory system: Unlabored breathing, clear to auscultation anteriorly. Heart S1, S2. Regular rate and rhythm. Abdomen soft, no tenderness. Sacral wound with no swelling, redness or any drainage. Left leg wound with no redness or drainage. LABS: Hemoglobin is 10.4, white count 5.8, BUN of 38, creatinine 0.82. Urine showing a Gram- negative Enterococcus. Blood showing Staph epi. DIAGNOSTIC IMPRESSION AND PLAN: Patient with admission to hospital with weakness and hypotension, possibly over- diuresis. The patient showing a gram-negative group D Enterococcus in the urine with question of possible Charles colonization. Charles catheter should be changed and repeat UA should be obtained from the Charles. This was discussed with the nursing staff. For now, covered with Levaquin and vanco while waiting for the repeat UA to be finalized. Continue supportive care. MMODL / IJN: [id number] /
[2021-02-14 20:06] LABS: Glucose,Whole Blood 207 mg/dL (75-99)
[2021-02-15 02:08] VITALS: RESP 18
[2021-02-15 06:37] LABS: Glucose,Whole Blood 112 mg/dL (75-99)
[2021-02-15] MEDS: LEVOTHYROXINE 100 MCG TAB PO SCH (06:43)
[2021-02-15] MEDS: PANTOPRAZOLE 40 MG TABLET PO SCH (06:44)
[2021-02-15] MEDS: IPRATROPIUM-ALBUTEROL 3 ML NEB INHALATION SCH ×2 (08:11→08:12)
[2021-02-15] MEDS: HYDROcodone/APAP 10-325MG 1 EACH TAB PO SCH (09:19)
[2021-02-15] MEDS: FERROUS SULFATE 325 MG TAB PO SCH (09:19)
[2021-02-15] MEDS: RIVAROXABAN 20 MG TAB PO SCH (09:19)
[2021-02-15] MEDS: PREGABALIN 100 MG CAP PO SCH (09:19)
[2021-02-15] MEDS: LACTOBACILLUS ACIDOPH & BULGAR 1 EACH PACKET PO SCH (09:19)
[2021-02-15] MEDS: POTASSIUM CHLORIDE ER 20 MEQ TAB.ER PO SCH (09:20)
[2021-02-15] MEDS: predniSONE 1 MG TAB PO SCH (09:20)
[2021-02-15] MEDS: LEFLUNOMIDE 20 MG TAB PO SCH (09:20)
[2021-02-15] MEDS: LORATADINE 10 MG TAB PO SCH (09:20)
[2021-02-15] MEDS: ASCORBIC ACID 500 MG TAB PO SCH (09:20)
[2021-02-15] MEDS: FUROSEMIDE 20 MG TAB PO SCH (09:20)
[2021-02-15] MEDS: COLLAGENASE 250 UNIT/GM OINTMENT 30 GM TUBE TOPICAL SCH (09:21)
[2021-02-15] MEDS: VANCOMYCIN 2,250 MG in SODIUM CHLORIDE 0.9% 500 ML 500 ML IVPB SCH (09:23)
[2021-02-15 10:28] VITALS: PULSE 92; TEMP 98.9
[2021-02-15 12:03] LABS: Glucose,Whole Blood 269 mg/dL (75-99)
--- NOTE | 2021-02-15 13:25 | PN ---
PROGRESS NOTE DATE OF SERVICE: 02/15/2021 REASON FOR FOLLOWUP: 1. Urinary tract infection. 2. Sacral and left leg pressure ulcer. INTERVAL HISTORY: The patient is afebrile. The patient is feeling better. Breathing comfortably. No chest pain, shortness of breath or cough. No abdominal pain. No diarrhea. PHYSICAL EXAMINATION: Blood pressure 105/68, pulse of 92, temperature 98.9. She is 93% on room air. General description is a middle-aged female lying in bed in no distress. Respiratory system: Unlabored breathing, clear to auscultation anteriorly. Heart is S1 and S2. Regular rate and rhythm. Abdomen is soft, no tenderness. LABORATORY DATA: Repeat culture so far pending. Repeat blood culture so far negative. DIAGNOSTIC IMPRESSION AND PLAN: 1. Positive blood culture with coagulase-negative staph likely contaminant. Will discontinue vancomycin. 2. Possible UTI overall improvement on Levaquin and continue for about a week. 3. Pressure ulcer to the sacrum and the left leg. To continue local wound care as ordered and close outpatient followup. Plan of care discussed with the admitting physician. MMODL / IJN: [id number] /
[2021-02-15 14:08] VITALS: BP 106/67
[2021-02-15] MEDS: HYDROcodone/APAP 10-325MG 1 EACH TAB PO PRN (15:08)
[2021-02-15] MEDS ORDERED: LEVOFLOXACIN 250 MG TAB PO SCH (18:00)
[2021-02-16] MEDS ORDERED: FUROSEMIDE 40 MG TAB PO SCH (09:00)
[2021-02-16] MEDS ORDERED: predniSONE 1 MG TAB PO SCH (09:00)
== END 2021-02-15 15:34 | DRG 698 ==
LOC: EC 14:54 → 3SCARD 17:56
PROVIDERS: ADMIT Internal Medicine; ATTEND Internal Medicine
DX: T83.511A Infection and inflammatory reaction due to indwelling urethral catheter, initial encounter (principal); A41.9 Sepsis, unspecified organism; L89.154 Pressure ulcer of sacral region, stage 4; L89.313 Pressure ulcer of right buttock, stage 3; E27.40 Unspecified adrenocortical insufficiency; Z16.24 Resistance to multiple antibiotics; I13.0 Hypertensive heart and chronic kidney disease with heart failure and stage 1 through stage 4 chronic kidney disease, or unspecified chronic kidney disease; L97.919 Non-pressure chronic ulcer of unspecified part of right lower leg with unspecified severity; L97.929 Non-pressure chronic ulcer of unspecified part of left lower leg with unspecified severity; L88 Pyoderma gangrenosum; N39.0 Urinary tract infection, site not specified; Z20.822 Contact with and (suspected) exposure to COVID-19; D63.8 Anemia in other chronic diseases classified elsewhere; E03.9 Hypothyroidism, unspecified; E86.0 Dehydration; G62.9 Polyneuropathy, unspecified; G89.29 Other chronic pain; M06.9 Rheumatoid arthritis, unspecified; N18.2 Chronic kidney disease, stage 2 (mild); M79.7 Fibromyalgia; B96.5 Pseudomonas (aeruginosa) (mallei) (pseudomallei) as the cause of diseases classified elsewhere; E05.90 Thyrotoxicosis, unspecified without thyrotoxic crisis or storm; L98.9 Disorder of the skin and subcutaneous tissue, unspecified; N28.9 Disorder of kidney and ureter, unspecified; R53.81 Other malaise; I50.9 Heart failure, unspecified; I83.018 Varicose veins of right lower extremity with ulcer other part of lower leg; I83.028 Varicose veins of left lower extremity with ulcer other part of lower leg; Z87.11 Personal history of peptic ulcer disease; Z99.3 Dependence on wheelchair; Z86.718 Personal history of other venous thrombosis and embolism; Z80.8 Family history of malignant neoplasm of other organs or systems; Z80.6 Family history of leukemia; Z79.899 Other long term (current) drug therapy; Z79.890 Hormone replacement therapy; Z79.52 Long term (current) use of systemic steroids; Z79.01 Long term (current) use of anticoagulants
CPT/HCPCS: 36415; 71046; 80048; 80053; 80074; 81001; 82550; 82565; 83605; 83880; 85025; 85027; 85610; 85652; 85730; 86140; 87040; 87077; 87086; 87186; 87635; 93005; 94640; 96360; 96361; 99285

== ENCOUNTER 2021-02-25 23:52 | Inpatient (IN) | payer MEDICARE, OTHER ==
[2021-02-26] MEDS ORDERED: SODIUM CHLORIDE 0.9% 1,000 ML IV STA (00:02)
--- NOTE | 2021-02-26 00:09 | ED ---
Altered Mental Status HPI - General Chief Complaint: Urogenital Stated Complaint: Sepsis Time Seen by Provider: 02/26/21 00:02 Source: patient, EMS, RN notes reviewed, old records reviewed Mode of arrival: EMS Limitations: no limitations - History of Present Illness Initial Comments: This is a 70-year-old female DF for evaluation patient Dese for evaluation of abnormal outpatient lab values. Patient herself does feel moderately weaker than normal. Patient has a history of recurrent urinary tract infections with indwelling Charles. Patient was sent for evaluation of abnormal labs. Patient is unsure lab values. History of pain from patient's chart MD Complaint: altered mental status -: hour(s) Severity: moderate Consistency of Symptoms: waxing and waning, getting worse Context: history of similar presentation Associated Symptoms: weakness - Related Data Home Medications Medication Instructions Recorded Confirmed Levothyroxine Sodium [Synthroid] 200 mcg PO DAILY@0600 08/26/17 02/26/21 Rivaroxaban [Xarelto] 20 mg PO DAILY@0800 07/10/19 02/26/21 Ferrous Sulfate [Feosol] 325 mg PO BID@0800,1700 09/03/19 02/26/21 Leflunomide [Arava] 20 mg PO DAILY@0800 10/10/19 02/26/21 Ascorbic Acid [Vitamin C] 500 mg PO DAILY@0800 01/15/21 02/26/21 Lactobacillus Acidophilus 1 cap PO DAILY@0800 01/15/21 02/26/21 [Acidophilus Probiotic] Loratadine [Claritin] 10 mg PO DAILY@0800 01/15/21 02/26/21 Ondansetron [Zofran] 4 mg PO Q8HR PRN 01/15/21 02/26/21 Potassium Chloride [Klor-Con 20] 20 meq PO BID@0800,1700 01/15/21 02/26/21 bisacodyL [Dulcolax] 10 mg RECTAL DAILY PRN 01/15/21 02/26/21 Hydrocortisone Cream 1 applic TOPICAL BID PRN 01/28/21 02/26/21 [Hydrocortisone 1% Cream] Liquacel 30 ml PO TID@0800,1200,1700 01/28/21 02/26/21 Mag Hydrox/Aluminum Hyd/Simeth 10 ml PO Q4H PRN 01/28/21 02/26/21 [Mylanta Maximum Strength Liq] Magnesium Hydroxide [Milk of 7,200 mg PO DAILY PRN 01/28/21 02/26/21 Magnesia Concentrate] Sucralfate [Carafate] 1 gm PO TID@0600,1100,1600 01/28/21 02/26/21 Ipratropium-Albuterol Nebulize 3 ml INHALATION RT-QID@00,06,12,18 02/12/21 02/26/21 [Duoneb 0.5 mg-3 mg/3 ml Soln] Lidocaine 5% Cream 1 applic TOPICAL DAILY PRN 02/12/21 02/26/21 Furosemide [Lasix] 40 mg PO BID@0800,1700 02/26/21 02/26/21 Previous Rx's Medication Instructions Recorded Acetaminophen Tab [Tylenol] 650 mg PO Q6HR PRN tab 02/26/20 Aztreonam [Azactam] 2 gm IVPB Q12HR #14 vial 03/03/21 HYDROcodone/APAP 10-325MG [[place] 1 tab PO DAILY@0800 #3 tab 03/03/21 10-325] HYDROcodone/APAP 10-325MG [[place] 1 tab PO Q8H PRN #9 tab 03/03/21 10-325] Pregabalin [Lyrica] 100 mg PO BID@0800,1700 #6 cap 03/03/21 fentaNYL 25MCG/HR PATCH [Duragesic 1 patch TRANSDERM Q72H #1 patch 03/03/21 25MCG/HR] predniSONE 0 mg PO DIRECTED #30 tab 03/03/21 Allergies Allergy/AdvReac Type Severity Reaction Status Date / Time cefepime Allergy Rash/Hives Verified 02/26/21 07:00 ceftriaxone [From Rocephin] Allergy Rash/Hives Verified 02/26/21 07:00 Penicillins Allergy Rash/Hives Verified 02/26/21 07:00 POSITIVE TB REACTOR Allergy Unknown Uncoded 02/26/21 07:00 Review of Systems ROS Statement: Those systems with pertinent positive or pertinent negative responses have been documented in the HPI. ROS Other: All systems not noted in ROS Statement are negative. Past Medical History Past Medical History: Deep Vein Thrombosis (DVT), Fibromyalgia, GI Bleed, Hypertension, Renal Disease, Rheumatoid Arthritis (RA), Skin Disorder, Thyroid Disorder Additional Past Medical History / Comment(s): Hx bleeding stomach ulcer. CKD, stage II; "Leaky bladder," "poor circulation," current Wound rt buttock, with wound vac, wound left lower leg, Hx Rt hip fx, no surg. 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 Nodule exc from thyroid. Sinus surgery. surgical excision, debridment of sacrum w/ wound VAC placement on 08/05/15 and sx done(flap), developed pin hole leak - had 2nd sx to repair. Debridement wound care to RLE wound on 08/21/15. Past Anesthesia/Blood Transfusion Reactions: No Reported Reaction Additional Past Anesthesia/Blood Transfusion Reaction / Comment(s): Pt has received blood in past without reaction. Past Psychological History: No Psychological Hx Reported Smoking Status: Never smoker Past Alcohol Use History: None Reported Past Drug Use History: None Reported - Past Family History Mother Family Medical History: AFIB, Cancer Additional Family Medical History / Comment(s): skin cancer Father Family Medical History: Cancer, Liver Disease, Rheumatoid Arthritis (RA) Additional Family Medical History / Comment(s): Leukemia. at age 72 of liver problem. General Exam Limitations: no limitations General appearance: alert, in no apparent distress Head exam: Present: atraumatic, normocephalic, normal inspection Eye exam: Present: normal appearance, PERRL, EOMI. Absent: scleral icterus, conjunctival injection, periorbital swelling ENT exam: Present: normal exam, mucous membranes moist Neck exam: Present: normal inspection. Absent: tenderness, meningismus, lymphadenopathy Respiratory exam: Present: normal lung sounds bilaterally. Absent: respiratory distress, wheezes, rales, rhonchi, stridor Cardiovascular Exam: Present: regular rate, normal rhythm, normal heart sounds. Absent: systolic murmur, diastolic murmur, rubs, gallop, clicks GI/Abdominal exam: Present: soft, normal bowel sounds. Absent: distended, tenderness, guarding, rebound, rigid Extremities exam: Present: normal inspection, full ROM, normal capillary refill. Absent: tenderness, pedal edema, joint swelling, calf tenderness Back exam: Present: normal inspection Neurological exam: Present: alert, oriented X3, CN II-XII intact Psychiatric exam: Present: normal affect, normal mood Skin exam: Present: warm, dry, intact, normal color. Absent: rash Course Vital Signs 02/25/21 23:57 Temperature 98.5 F Pulse Rate 74 Respiratory 18 Rate Blood Pressure 118/79 O2 Sat by Pulse 95 Oximetry - Reevaluation(s) Reevaluation #1: Medical record is reviewed Patient symptoms are improved here in the ER Patient informed of results and questions answered Medical Decision Making - Medical Decision Making 70 female presents for rule out sepsis. Patient significantly increased outpatient sed rate with history of recurrent urinary tract infections. Patient will be admitted for IV antibiotics - Lab Data Result diagrams: 03/03/21 04:53 03/03/21 04:53 Lab Results 02/26/21 02/26/21 02/26/21 Range/Units 00:14 00:14 00:14 WBC 6.8 (3.8-10.6) k/uL RBC 3.89 (3.80-5.40) m/uL Hgb 11.6 (11.4-16.0) gm/dL Hct 37.0 (34.0-46.0) % MCV 95.2 (80.0-100.0) fL MCH 29.8 (25.0-35.0) pg MCHC 31.3 (31.0-37.0) g/dL RDW 15.2 (11.5-15.5) % Plt Count 267 (150-450) k/uL MPV 8.2 Neutrophils % 75 % Lymphocytes % 11 % Monocytes % 8 % Eosinophils % 4 % Basophils % 1 % Neutrophils # 5.1 (1.3-7.7) k/uL Lymphocytes # 0.8 L (1.0-4.8) k/uL Monocytes # 0.5 (0-1.0) k/uL Eosinophils # 0.3 (0-0.7) k/uL Basophils # 0.0 (0-0.2) k/uL Hypochromasia Moderate PT 11.3 (9.0-12.0) sec INR 1.1 (<1.2) APTT 27.0 (22.0-30.0) sec Sodium (137-145) mmol/L Potassium (3.5-5.1) mmol/L Chloride (98-107) mmol/L Carbon Dioxide (22-30) mmol/L Anion Gap mmol/L BUN (7-17) mg/dL Creatinine (0.52-1.04) mg/dL Est GFR (CKD-EPI)AfAm (>60 ml/min/1.73 sqM) Est GFR (CKD-EPI)NonAf (>60 ml/min/1.73 sqM) Glucose (74-99) mg/dL Plasma Lactic Acid Darryl (0.7-2.0) mmol/L Calcium (8.4-10.2) mg/dL Phosphorus (2.5-4.5) mg/dL Magnesium (1.6-2.3) mg/dL Total Bilirubin (0.2-1.3) mg/dL AST (14-36) U/L ALT (4-34) U/L Alkaline Phosphatase (38-126) U/L Troponin I (0.000-0.034) ng/mL Total Protein (6.3-8.2) g/dL Albumin (3.5-5.0) g/dL Urine Color Light Yellow Urine Appearance Cloudy H (Clear) Urine pH 5.0 (5.0-8.0) Ur Specific [place] 1.008 (1.001-1.035) Urine Protein Negative (Negative) Urine Glucose (UA) Negative (Negative) Urine Ketones Negative (Negative) Urine Blood Negative (Negative) Urine Nitrite Positive H (Negative) Urine Bilirubin Negative (Negative) Urine Urobilinogen <2.0 (<2.0) mg/dL Ur Leukocyte Esterase Large H (Negative) Urine RBC 1 (0-5) /hpf Urine WBC 23 H (0-5) /hpf Calcium Oxalate Crystal Occasional H (None) /hpf Urine Bacteria Occasional H (None) /hpf Urine Mucus Rare H (None) /hpf 02/26/21 02/26/21 02/26/21 Range/Units 00:14 00:14 00:14 WBC (3.8-10.6) k/uL RBC (3.80-5.40) m/uL Hgb (11.4-16.0) gm/dL Hct (34.0-46.0) % MCV (80.0-100.0) fL MCH (25.0-35.0) pg MCHC (31.0-37.0) g/dL RDW (11.5-15.5) % Plt Count (150-450) k/uL MPV Neutrophils % % Lymphocytes % % Monocytes % % Eosinophils % % Basophils % % Neutrophils # (1.3-7.7) k/uL Lymphocytes # (1.0-4.8) k/uL Monocytes # (0-1.0) k/uL Eosinophils # (0-0.7) k/uL Basophils # (0-0.2) k/uL Hypochromasia PT (9.0-12.0) sec INR (<1.2) APTT (22.0-30.0) sec Sodium 136 L (137-145) mmol/L Potassium 4.1 (3.5-5.1) mmol/L Chloride 97 L (98-107) mmol/L Carbon Dioxide 34 H (22-30) mmol/L Anion Gap 5 mmol/L BUN 54 H (7-17) mg/dL Creatinine 0.94 (0.52-1.04) mg/dL Est GFR (CKD-EPI)AfAm 70 (>60 ml/min/1.73 sqM) Est GFR (CKD-EPI)NonAf 61 (>60 ml/min/1.73 sqM) Glucose 133 H (74-99) mg/dL Plasma Lactic Acid Darryl 1.1 (0.7-2.0) mmol/L Calcium 9.1 (8.4-10.2) mg/dL Phosphorus 4.3 (2.5-4.5) mg/dL Magnesium 2.2 (1.6-2.3) mg/dL Total Bilirubin 0.2 (0.2-1.3) mg/dL AST 29 (14-36) U/L ALT 21 (4-34) U/L Alkaline Phosphatase 132 H (38-126) U/L Troponin I <0.012 (0.000-0.034) ng/mL Total Protein 5.7 L (6.3-8.2) g/dL Albumin 3.1 L (3.5-5.0) g/dL Urine Color Urine Appearance (Clear) Urine pH (5.0-8.0) Ur Specific [place] (1.001-1.035) Urine Protein (Negative) Urine Glucose (UA) (Negative) Urine Ketones (Negative) Urine Blood (Negative) Urine Nitrite (Negative) Urine Bilirubin (Negative) Urine Urobilinogen (<2.0) mg/dL Ur Leukocyte Esterase (Negative) Urine RBC (0-5) /hpf Urine WBC (0-5) /hpf Calcium Oxalate Crystal (None) /hpf Urine Bacteria (None) /hpf Urine Mucus (None) /hpf - EKG Data -: EKG Interpreted by Me (EKG is sinus rhythm 87 MI 186 QRS 98 QTc 440) - Radiology Data Radiology results: report reviewed (Chest x-rays negative for acute disease), image reviewed Disposition Clinical Impression: Altered mental status Narrative: ro Sepsis Disposition: ADMITTED IP TO THIS [facility] Condition: Good Is patient prescribed a controlled substance at d/c from ED?: No
--- NOTE | 2021-02-26 00:45 | XR ---
EXAMINATION TYPE: XR chest 1V portable DATE OF EXAM: 02/26/2021 COMPARISON: 02/12/2021 HISTORY: Weakness TECHNIQUE: Single view FINDINGS: There is some coarsening of interstitial markings. There is no heart failure. There is no d efinite pleural effusion. Heart appears enlarged. IMPRESSION: Increased lung markings consistent with pulmonary fibrosis. No change compared to old exa m.
[2021-02-26] MEDS: SODIUM CHLORIDE 0.9% 1,000 ML IV STA ×2 (00:50→03:22)
[2021-02-26 00:57] LABS: Basophils % (A) 1 %; Eosinophils # (A) 0.3 k/uL (0-0.7); Eosinophils % (A) 4 %; HGB 11.6 gm/dL (11.4-16.0); Hypochromasia Moderate; Lymphocytes # (A) 0.8 k/uL (1.0-4.8); Lymphocytes % (A) 11 %; MCH 29.8 pg (25.0-35.0); MCHC 31.3 g/dL (31.0-37.0); MCV 95.2 fL (80.0-100.0); Mean Platelet Volume 8.2; Monocytes # (A) 0.5 k/uL (0-1.0); Monocytes % (A) 8 %; Neutrophils # (A) 5.1 k/uL (1.3-7.7); Neutrophils % (A) 75 %; Platelet Count 267 k/uL (150-450); RBC 3.89 m/uL (3.80-5.40); RDW 15.2 % (11.5-15.5); WBC 6.8 k/uL (3.8-10.6)
[2021-02-26 01:05] LABS: Appearance,Urine Cloudy (Clear); Bacteria,Urine Occasional /hpf; Bilirubin,Urine Negative (Negative); Blood,Urine Negative (Negative); Calcium Oxalate Crystals,Urine Occasional /hpf; Color,Urine Light Yellow; Glucose,Urine (UA) Negative (Negative); Ketones,Urine Negative (Negative); Leukocyte Esterase,Urine Large (Negative); Mucus,Urine Rare /hpf; Nitrite,Urine Positive (Negative); Protein,Urine Negative (Negative); RBC,Urine 1 /hpf (0-5); Specific Gravity,Urine 1.008 (1.001-1.035); Urobilinogen,Urine <2.0 mg/dL (<2.0); WBC,Urine 23 /hpf (0-5)
[2021-02-26 01:07] LABS: INR 1.1 (<1.2); Prothrombin Time 11.3 sec (9.0-12.0)
[2021-02-26 01:09] LABS: Albumin 3.1 g/dL (3.5-5.0); Calcium 9.1 mg/dL (8.4-10.2); Magnesium 2.2 mg/dL (1.6-2.3); Phosphorus 4.3 mg/dL (2.5-4.5); Potassium 4.1 mmol/L (3.5-5.1); Total Bilirubin 0.2 mg/dL (0.2-1.3); Total Protein 5.7 g/dL (6.3-8.2)
[2021-02-26] MEDS ORDERED: SODIUM CHLORIDE 0.9% 1,000 ML IV SCH (01:45)
[2021-02-26] MEDS ORDERED: DAPTOmycin 500 MG in SODIUM CHLORIDE 0.9% 50 ML IVPB SCH (02:00)
[2021-02-26] MEDS ORDERED: ONDANSETRON 4 MG TAB PO PRN (07:56)
[2021-02-26] MEDS ORDERED: ACETAMINOPHEN TAB 325 MG TAB PO PRN (07:56)
[2021-02-26] MEDS ORDERED: MAGNESIUM HYDROXIDE 2,400 MG/10 ML CUP PO PRN (07:56)
[2021-02-26] MEDS ORDERED: MAG HYDROX/AL HYDROX/SIMETH 30 ML CUP PO PRN (07:56)
[2021-02-26] MEDS: NON FORMULARY DRUG (Liquacel 30 ML) PO SCH ×3 (08:52→16:59)
[2021-02-26] MEDS: POTASSIUM CHLORIDE ER 20 MEQ TAB.ER PO SCH ×2 (08:58→16:53)
[2021-02-26] MEDS: LORATADINE 10 MG TAB PO SCH (08:58)
[2021-02-26] MEDS: SODIUM CHLORIDE 0.9% 1,000 ML IV SCH (08:58)
[2021-02-26] MEDS: LACTOBACILLUS ACIDOPH & BULGAR 1 EACH PACKET PO SCH (08:58)
[2021-02-26] MEDS: PREGABALIN 100 MG CAP PO SCH ×2 (08:58→16:53)
[2021-02-26] MEDS: RIVAROXABAN 20 MG TAB PO SCH (08:58)
[2021-02-26] MEDS: FUROSEMIDE 40 MG TAB PO SCH ×2 (08:58→16:53)
[2021-02-26] MEDS: FERROUS SULFATE 325 MG TAB PO SCH ×2 (08:58→16:53)
[2021-02-26] MEDS: predniSONE 1 MG TAB PO SCH (09:04)
[2021-02-26] MEDS: LEVOTHYROXINE 100 MCG TAB PO SCH (09:04)
[2021-02-26 11:47] LABS: Glucose,Whole Blood 131 mg/dL (75-99)
[2021-02-26] MEDS: INSULIN ASPART (NovoLOG) 100 UNIT/ML VIAL SQ SCH ×3 (11:51→21:03)
[2021-02-26] MEDS: SUCRALFATE 1 GM TAB PO SCH ×2 (11:52→16:53)
[2021-02-26] MEDS: IPRATROPIUM-ALBUTEROL 3 ML NEB INHALATION SCH ×2 (11:54→16:54)
--- NOTE | 2021-02-26 12:20 | P.HPIM ---
History of Present Illness H&P Date: 02/26/21 HISTORY OF PRESENT ILLNESS This is a 70-year-old female patient of mine with a previous medical history significant for rheumatoid arthritis with significant deformities, currently wheelchair bound/bedbound, nonhealing wounds for bilateral lower extremities as well as stage IV sacral decubitus ulcer for which she has been treated with a wound VAC, she has been following with the wound healing Center at [facility] with Dr. Medina at [facility] on a weekly basis. He should has been on multiple courses of IV antibiotics and developed ALLERGIC reaction to cefepime which is now considered an ALLERGY. Her most recent hospitalization was on February 12 through February 15 at which time she was found to be hypotensive related to sepsis secondary to an acute Pseudomonas catheter associated urinary tract infection. She was discharged on Levaquin for a 1 week course as advised by Dr. Rangel and had completed the course of treatment. Yesterday morning, patient had low pulse ox and chest x-ray was ordered which revealed heart moderately enlarged, central venous congestion without overt failure similar to previous. No confluent infiltrate. No effusion or pneumothorax. Mediastinum and hilar structures are unremarkable. Later in the day, patient developed increased confusion, shaking movements. She was unable to follow conversation. She did not have fevers. Her heart rate was at 92. Pulse ox was 98% on 2 L nasal cannula. Patient was admitted into [facility] emergency center for evaluation where she was found to be afebrile, pulse ox 95% on 2 L nasal cannula, heart rate 74, blood pressure 118/79. CBC was unremarkable. Sodium 136, potassium 4.1, chloride 97, CO2 34, BUN 54, creatinine 0.94. Blood sugar 113. Total bilirubin 0.2, AST 29, ALT 21, alkaline phosphatase 132. Magnesium 2.2. Urinalysis was cloudy, nitrate positive, leukoesterase large, wbc's 23. Patient was given 2 L of IV fluids, started on daptomycin and admitted to the [facility] floor. Blood culture was ordered and urine culture obtained. Patient's mental status is at baseline. REVIEW OF SYSTEMS Constitutional: No fever, no chills, no night sweats. No weight change. Reported weakness, reported fatigue reported lethargy. Reported daytime sleepiness. EENT: No headache. No blurred vision or double vision, no loss of vision. No loss of Hearing, no ringing in the ears, reports dizziness. No nasal drainage or congestion. No epistaxis. No sore throat. Lungs: No shortness of breath, cough, no sputum production. No wheezing. Cardiovascular: No chest pain, no lower extremity edema. No palpitations. No paroxysmal nocturnal dyspnea. No orthopnea. No lightheadedness reports dizziness. No syncopal episodes. Abdominal: No abdominal pain. No nausea, vomiting. No diarrhea. No constipation. No bloody or tarry stools.. Reported loss of appetite. Genitourinary: No dysuria, increased frequency, urgency. No urinary retention. Musculoskeletal: No myalgias. No muscle weakness, no gait dysfunction, no frequ ent falls. No back pain. No neck pain. Integumentary: Noted wounds, chronic to bilateral lower legs which are healing nicely and decubitus sacrum. No rash or pruritus. No unusual bruising. No joanna nge in hair or nails. Neurologic: No aphasia. No facial droop. Noted change in mentation. No head i njury. No headache. No paralysis. No paresthesia. Psychiatric: No depression. No anxiety. No mood swings. Endocrine: No abnormal blood sugars. PAST MEDICAL HISTORY 1. Rheumatoid arthritis. 2. Hypothyroidism. 3. Chronic kidney disease stage 2. 4. Fibromyalgia. 5. Anemia of chronic disease. 6. PUD due to antral ulcer bleeding requiring blood transfusion. 7. MRSA infection. 8. Chronic decub ulcers in both legs and sacral area. 9. PAD. 10. DVT. PAST SURGICAL HISTORY 1. Appendectomy. 2. Tonsillectomy. 3. Cholecystectomy. 4. Left foot wound debridement. 5. Nodule removed from thyroid. 6. Sinus surgery. 7. Surgical excision and debridement of sacrum with wound VAC placement 08/05/15 followed by Flap surgery done developed complications with revision. 8. Right lower extremity wound debridement SOCIAL HISTORY Patient is a lifelong nonsmoker, no alcohol abuse, she resides at [facility]. FAMILY HISTORY Mother has history of skin cancer. Father has history of leukemia and at age 72 from a liver problem also with history of rheumatoid arthritis. PHYSICAL EXAMINATION Gen: This is is a morbidly obese 70-year-old white female. She is resting in bed. She appears to be comfortable. HEENT: Head is atraumatic, normocephalic. Pupils equal, round. Sclerae is anicteric. NECK: Supple. No JVD. No lymphadenopathy. No thyromegaly. LUNGS: Clear to auscultation. No wheezes or rhonchi. No intercostal retractions. HEART: First heart sound is depressed, second heart sounds normal, there is systolic murmur 2/6. Left sternal border. ABDOMEN: Soft. Bowel sounds are present. No masses. No tenderness. EXTREMITIES: No pedal edema. No calf tenderness. Wound to the coccyx area, wounds to the bilateral lower extremities with purulent drainage and foul smell. NEUROLOGICAL: Patient is awake, alert and oriented to person and place. Generalized weakness. ASSESSMENT AND PLAN 1. Metabolic encephalopathy secondary to possible sepsis, UTI. Mental status is back to baseline. Patient is currently on daptomycin. Consult with Dr. Rangel, urine culture, blood culture to be obtained. Fentanyl patch, [place] and a refill on hold. 2. Bilateral nonhealing wounds to the lower extremities and chronic sacral decubitus. Patient has been under the care of the wound center and Dr. Medina at [facility]. 3. Rheumatoid arthritis with chronic pain, significant deformities, wheelchair bound. Hold fentanyl patch 25 g per hour every 72 hours, [place] 10 one every 8 hours as needed and 1 daily. Continue Arava 20 mg daily Lyrica 100 mg twice daily, prednisone 2 mg daily. 4. Anemia of chronic illness. Continue ferrous sulfate 325 mg twice daily. 5. History of DVT. Xarelto 20 mg daily. 6. Hypothyroidism. Continue levothyroxine 200 g daily. 7. Peripheral neuropathy. Continue patient on Lyrica 100 mg orally twice every day. 8. Chronic Charles catheter. Due to nonhealing decubitus ulcers. 9. DVT prophylaxis. We will maintain the patient on Xarelto 20 mg orally once every day. 10. GI prophylaxis. Continue Carafate 3 times daily. 14. Admit to inpatient. Estimated length of stay 2 midnights. 15. Patient is full code. DISCHARGE PLAN Return to [facility]. Impression and plan of care have been directed as dictated by the signing physician. Arlene Darnell nurse practitioner acting as scribe for signing physician. Past Medical History Past Medical History: Deep Vein Thrombosis (DVT), Fibromyalgia, GI Bleed, Hypertension, Renal Disease, Rheumatoid Arthritis (RA), Skin Disorder, Thyroid Disorder Additional Past Medical History / Comment(s): Hx bleeding stomach ulcer. CKD, stage II; "Leaky bladder," "poor circulation," current Wound rt buttock, with wound vac, wound left lower leg, Hx Rt hip fx, no surg. 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 Nodule exc from thyroid. Sinus surgery. surgical excision, debridment of sacrum w/ wound VAC placement on 08/05/15 and sx done(flap), developed pin hole leak - had 2nd sx to repair. Debridement wound care to RLE wound on 08/21/15. Past Anesthesia/Blood Transfusion Reactions: No Reported Reaction Additional Past Anesthesia/Blood Transfusion Reaction / Comment(s): Pt has received blood in past without reaction. Past Psychological History: No Psychological Hx Reported Additional Psychological History / Comment(s): pt lives at [facility] Smoking Status: Never smoker Past Alcohol Use History: None Reported Additional Past Alcohol Use History / Comment(s): Patient is a lifelong nonsmoker. She resides at [facility]. Past Drug Use History: None Reported - Past Family History Mother Family Medical History: AFIB, Cancer Additional Family Medical History / Comment(s): skin cancer Father Family Medical History: Cancer, Liver Disease, Rheumatoid Arthritis (RA) Additional Family Medical History / Comment(s): Leukemia. at age 72 of liver problem. Medications and Allergies Home Medications Medication Instructions Recorded Confirmed Type Levothyroxine Sodium [Synthroid] 200 mcg PO DAILY@0600 08/26/17 02/26/21 History Rivaroxaban [Xarelto] 20 mg PO DAILY@0800 07/10/19 02/26/21 History Ferrous Sulfate [Feosol] 325 mg PO BID@0800,1700 09/03/19 02/26/21 History Leflunomide [Arava] 20 mg PO DAILY@0800 10/10/19 02/26/21 History Acetaminophen Tab [Tylenol] 650 mg PO Q6HR PRN tab 02/26/20 02/26/21 Rx Ascorbic Acid [Vitamin C] 500 mg PO DAILY@0800 01/15/21 02/26/21 History Lactobacillus Acidophilus 1 cap PO DAILY@0800 01/15/21 02/26/21 History [Acidophilus Probiotic] Loperamide HCl [Loperamide] 2 mg PO QID PRN 01/15/21 02/26/21 History Loratadine [Claritin] 10 mg PO DAILY@0800 01/15/21 02/26/21 History Ondansetron [Zofran] 4 mg PO Q8HR PRN 01/15/21 02/26/21 History Potassium Chloride [Klor-Con 20] 20 meq PO BID@0800,1700 01/15/21 02/26/21 Hist ory bisacodyL [Dulcolax] 10 mg RECTAL DAILY PRN 01/15/21 02/26/21 History Hydrocortisone Cream 1 applic TOPICAL BID PRN 01/28/21 02/26/21 History [Hydrocortisone 1% Cream] Liquacel 30 ml PO TID@0800,1200,1700 01/28/21 02/26/21 History Mag Hydrox/Aluminum Hyd/Simeth 10 ml PO Q4H PRN 01/28/21 02/26/21 History [Mylanta Maximum Strength Liq] Magnesium Hydroxide [Milk of 7,200 mg PO DAILY PRN 01/28/21 02/26/21 History Magnesia Concentrate] Na Phos,M-B/Na Phos,Di-Ba [[place] 133 ml RECTAL DAILY PRN 01/28/21 02/26/21 History Adult] Sucralfate [Carafate] 1 gm PO TID@0600,1100,1600 01/28/21 02/26/21 History Ipratropium-Albuterol Nebulize 3 ml INHALATION RT-QID@00,06,12,18 02/12/21 02/26/21 History [Duoneb 0.5 mg-3 mg/3 ml Soln] Lidocaine 5% Cream 1 applic TOPICAL DAILY PRN 02/12/21 02/26/21 History HYDROcodone/APAP 10-325MG [[place] 1 tab PO DAILY@0800 #3 tab 02/14/21 02/26/21 Rx 10-325] HYDROcodone/APAP 10-325MG [[place] 1 tab PO Q8H PRN #9 tab 02/14/21 02/26/21 Rx 10-325] Pregabalin [Lyrica] 100 mg PO BID@0800,1700 #6 cap 02/14/21 02/26/21 Rx fentaNYL 25MCG/HR PATCH [Durages[place] 1 patch TRANSDERM Q72H #1 patch 02/14/21 02/26/21 Rx 25MCG/HR] Furosemide [Lasix] 40 mg PO BID@0800,1700 02/26/21 02/26/21 History predniSONE 2 mg PO DAILY@0900 02/26/21 02/26/21 History Allergies Allergy/AdvReac Type Severity Reaction Status Date / Time cefepime Allergy Rash/Hives Verified 02/26/21 07:00 ceftriaxone [From Rocephin] Allergy Rash/Hives Verified 02/26/21 07:00 Penicillins Allergy Rash/Hives Verified 02/26/21 07:00 POSITIVE TB REACTOR Allergy Unknown Uncoded 02/26/21 07:00 Physical Exam Vitals: Vital Signs Temp Pulse Pulse Resp BP BP Pulse Ox 02/26/21 03:09 98.4 F 88 15 114/71 97 02/25/21 23:57 98.5 F 74 18 118/79 95 Intake and Output 02/25/21 02/26/21 02/26/21 22:59 06:59 14:59 Intake Total 390 Output Total 851 Balance -461 Intake: Intake, IV Titration 390 Amount Sodium Chloride 0.9% 1, 390 000 ml @ 130 mls/hr IV . Q7H42M [facility] Rx#:[id number] Output: Urine 850 Stool 1 Other: Weight 117.934 kg Results CBC & Chem 7: 02/26/21 00:14 02/26/21 00:14 Labs: Abnormal Lab Results - Last 24 Hours (Table) 02/26/21 02/26/21 02/26/21 Range/Units 00:14 00:14 00:14 Lymphocytes # 0.8 L (1.0-4.8) k/uL Sodium 136 L (137-145) mmol/L Chloride 97 L (98-107) mmol/L Carbon Dioxide 34 H (22-30) mmol/L BUN 54 H (7-17) mg/dL Glucose 133 H (74-99) mg/dL Alkaline Phosphatase 132 H (38-126) U/L Total Protein 5.7 L (6.3-8.2) g/dL Albumin 3.1 L (3.5-5.0) g/dL Urine Appearance Cloudy H (Clear) Urine Nitrite Positive H (Negative) Ur Leukocyte Esterase Large H (Negative) Urine WBC 23 H (0-5) /hpf Calcium Oxalate Crystal Occasional H (None) /hpf Urine Bacteria Occasional H (None) /hpf Urine Mucus Rare H (None) /hpf Thrombosis Risk Factor Assmnt - Choose All That Apply Each Factor Represents 1 point: Medical pt on bed rest, Obesity (BMI >25), Swollen legs (current) Each Risk Factor Represents 2 Points: Patient confined to bed Thrombosis Risk Factor Assessment Total Risk Factor Score: 5 Thrombosis Risk Factor Assessment Level: High Risk
[2021-02-26 14:11] VITALS: BMI 38.4
[2021-02-26 16:47] LABS: Glucose,Whole Blood 136 mg/dL (75-99)
[2021-02-26 20:57] LABS: Glucose,Whole Blood 267 mg/dL (75-99)
--- NOTE | 2021-02-26 23:11 | P.CONS ---
History of Present Illness - Reason for Consult Consult date: 02/26/21 UTI Requesting physician: Cierra Moyer - Chief Complaint weakness x 1 day - History of Present Illness Patient is a 70-year-old female with a past medical history si gnificant for a chronic nonhealing wound to the sacral area pressure ulcer also with the pressure ulcer of the left lower extremity and history of recurrent urinary tract infection patient was brought into the ER around midnight after the patient was noticed to have a low pulse ox in addition to the increased confusion and shaking movement and was unable to follow conversation with the syndrome and the patient was sent to the ER for further evaluation on arrival to the ER patient was afebrile and no fever was recorded subsequently patient is currently 9524% on 2 L nasal cannula patient did have a normal white count kidney function was normal liver enzymes are normal she did have a positive UA with large ascites restricted WBC patient did have a chest x-ray increased lung markings consistent with pulmonary fibrosis no change in control exam patient has been started on daptomycin and infectious was consulted for further management of antibiotic therapy patient has been evaluated for feeling nauseous but no vomiting patient denies having any chest pain no shortness of breath or cough no abdominal pain and not have any diarrhea. Review of Systems Positive point has been mentioned in the HPI rest of the systems are negative Past Medical History Past Medical History: Deep Vein Thrombosis (DVT), Fibromyalgia, GI Bleed, Hypertension, Renal Disease, Rheumatoid Arthritis (RA), Skin Disorder, Thyroid Disorder Additional Past Medical History / Comment(s): Hx bleeding stomach ulcer. CKD, stage II; "Leaky bladder," "poor circulation," current Wound rt buttock, with wound vac, wound left lower leg, Hx Rt hip fx, no surg. 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 Nodule exc from thyroid. Sinus surgery. surgical excision, debridment of sacrum w/ wound VAC placement on 08/05/15 and sx done(flap), developed pin hole leak - had 2nd sx to repair. Debridement wound care to RLE wound on 08/21/15. Past Anesthesia/Blood Transfusion Reactions: No Reported Reaction Additional Past Anesthesia/Blood Transfusion Reaction / Comm: Pt has received blood in past without reaction. Past Psychological History: No Psychological Hx Reported Additional Psychological History / Comment(s): pt lives at [facility] Smoking Status: Never smoker Past Alcohol Use History: None Reported Additional Past Alcohol Use History / Comment(s): Patient is a lifelong nonsmoker. She resides at [facility]. Past Drug Use History: None Reported - Past Family History Mother Family Medical History: AFIB, Cancer Additional Family Medical History / Comment(s): skin cancer Father Family Medical History: Cancer, Liver Disease, Rheumatoid Arthritis (RA) Additional Family Medical History / Comment(s): Leukemia. at age 72 of liver problem. Medications and Allergies Home Medications Medication Instructions Recorded Confirmed Type Levothyroxine Sodium [Synthroid] 200 mcg PO DAILY@0600 08/26/17 02/26/21 History Rivaroxaban [Xarelto] 20 mg PO DAILY@0800 07/10/19 02/26/21 History Ferrous Sulfate [Feosol] 325 mg PO BID@0800,1700 09/03/19 02/26/21 History Leflunomide [Arava] 20 mg PO DAILY@0800 10/10/19 02/26/21 History Acetaminophen Tab [Tylenol] 650 mg PO Q6HR PRN tab 02/26/20 02/26/21 Rx Ascorbic Acid [Vitamin C] 500 mg PO DAILY@0800 01/15/21 02/26/21 History Lactobacillus Acidophilus 1 cap PO DAILY@0800 01/15/21 02/26/21 History [Acidophilus Probiotic] Loperamide HCl [Loperamide] 2 mg PO QID PRN 01/15/21 02/26/21 History Loratadine [Claritin] 10 mg PO DAILY@0800 01/15/21 02/26/21 History Ondansetron [Zofran] 4 mg PO Q8HR PRN 01/15/21 02/26/21 History Potassium Chloride [Klor-Con 20] 20 meq PO BID@0800,1700 01/15/21 02/26/21 History bisacodyL [Dulcolax] 10 mg RECTAL DAILY PRN 01/15/21 02/26/21 History Hydrocortisone Cream 1 applic TOPICAL BID PRN 01/28/21 02/26/21 History [Hydrocortisone 1% Cream] Liquacel 30 ml PO TID@0800,1200,1700 01/28/21 02/26/21 History Mag Hydrox/Aluminum Hyd/Simeth 10 ml PO Q4H PRN 01/28/21 02/26/21 History [Mylanta Maximum Strength Liq] Magnesium Hydroxide [Milk of 7,200 mg PO DAILY PRN 01/28/21 02/26/21 History Magnesia Concentrate] Na Phos,M-B/Na Phos,Di-Ba [Fleet 133 ml RECTAL DAILY PRN 01/28/21 02/26/21 History Adult] Sucralfate [Carafate] 1 gm PO TID@0600,1100,1600 01/28/21 02/26/21 History Ipratropium-Albuterol Nebulize 3 ml INHALATION RT-QID@00,06,12,18 02/12/21 02/26/21 History [Duoneb 0.5 mg-3 mg/3 ml Soln] Lidocaine 5% Cream 1 applic TOPICAL DAILY PRN 02/12/21 02/26/21 History HYDROcodone/APAP 10-325MG [Beatrice 1 tab PO DAILY@0800 #3 tab 02/14/21 02/26/21 Rx 10-325] HYDROcodone/APAP 10-325MG [Beatrice 1 tab PO Q8H PRN #9 tab 02/14/21 02/26/21 Rx 10-325] Pregabalin [Lyrica] 100 mg PO BID@0800,1700 #6 cap 02/14/21 02/26/21 Rx fentaNYL 25MCG/HR PATCH [Duragesic 1 patch TRANSDERM Q72H #1 patch 02/14/21 02/26/21 Rx 25MCG/HR] Furosemide [Lasix] 40 mg PO BID@0800,1700 02/26/21 02/26/21 History predniSONE 2 mg PO DAILY@0900 02/26/21 02/26/21 History Allergies Allergy/AdvReac Type Severity Reaction Status Date / Time cefepime Allergy Rash/Hives Verified 02/26/21 07:00 ceftriaxone [From Rocephin] Allergy Rash/Hives Verified 02/26/21 07:00 Penicillins Allergy Rash/Hives Verified 02/26/21 07:00 POSITIVE TB REACTOR Allergy Unknown Uncoded 02/26/21 07:00 Physical Exam Vitals: Vital Signs Temp Pulse Pulse Resp BP BP Pulse Ox 02/26/21 14:00 98.4 F 98 17 94/65 94 L 02/26/21 12:02 79 02/26/21 11:54 78 02/26/21 07:46 98.3 F 90 16 128/79 99 02/26/21 03:09 98.4 F 88 15 114/71 97 02/25/21 23:57 98.5 F 74 18 118/79 95 Intake and Output 02/25/21 02/26/21 02/26/21 22:59 06:59 14:59 Intake Total 390 Output Total 851 1280 Balance -461 -1280 Intake: Intake, IV Titration 390 Amount Sodium Chloride 0.9% 1, 390 000 ml @ 130 mls/hr IV . Q7H42M [facility] Rx#:[id number] Output: Urine 850 1280 Uretheral (Charles) 80 Stool 1 Other: Voiding Method Indwelling Catheter Weight 117.934 kg 117.934 kg GENERAL DESCRIPTION: An elderly female lying in bed, no distress. No tachypnea or accessory muscle of respiration use. HEENT: Shows Pallor , no scleral icterus. Oral mucous membrane is dry. No pharyngeal erythema or thrush NECK: Trachea central, no thyromegaly. LUNGS: Unlabored breathing. Clear to auscultation anteriorly. No wheeze or crackle. HEART: S1, S2, regular rate and rhythm. No loud murmur ABDOMEN: Soft, no tenderness , guarding or rigidity, no organomegaly EXTREMITIES: No edema of feet. SKIN: No rash, no masses palpable. NEUROLOGICAL: The patient is awake, alert, oriented x3, mood and affect normal. Results CBC & Chem 7: 02/26/21 00:14 02/26/21 00:14 Labs: Abnormal Lab Results - Last 24 Hours (Table) 02/26/21 02/26/21 02/26/21 Range/Units 00:14 00:14 00:14 Lymphocytes # 0.8 L (1.0-4.8) k/uL Sodium 136 L (137-145) mmol/L Chloride 97 L (98-107) mmol/L Carbon Dioxide 34 H (22-30) mmol/L BUN 54 H (7-17) mg/dL Glucose 133 H (74-99) mg/dL POC Glucose (mg/dL) (75-99) mg/dL Alkaline Phosphatase 132 H (38-126) U/L Total Protein 5.7 L (6.3-8.2) g/dL Albumin 3.1 L (3.5-5.0) g/dL Urine Appearance Cloudy H (Clear) Urine Nitrite Positive H (Negative) Ur Leukocyte Esterase Large H (Negative) Urine WBC 23 H (0-5) /hpf Calcium Oxalate Crystal Occasional H (None) /hpf Urine Bacteria Occasional H (None) /hpf Urine Mucus Rare H (None) /hpf 02/26/21 Range/Units 11:45 Lymphocytes # (1.0-4.8) k/uL Sodium (137-145) mmol/L Chloride (98-107) mmol/L Carbon Dioxide (22-30) mmol/L BUN (7-17) mg/dL Glucose (74-99) mg/dL POC Glucose (mg/dL) 131 H (75-99) mg/dL Alkaline Phosphatase (38-126) U/L Total Protein (6.3-8.2) g/dL Albumin (3.5-5.0) g/dL Urine Appearance (Clear) Urine Nitrite (Negative) Ur Leukocyte Esterase (Negative) Urine WBC (0-5) /hpf Calcium Oxalate Crystal (None) /hpf Urine Bacteria (None) /hpf Urine Mucus (None) /hpf Microbiology - Last 24 Hours (Table) 02/26/21 00:14 Urine Culture - Preliminary Urine,Voided Assessment and Plan Assessment: 1-Patient being admitted to hospital with mental status changes confusion which is likely multifactorial possible metabolic underlying urinary tract infection not entirely excluded 2-patient did have a stage IV sacral pressure ulcer with evidence of an cell ulitis recommend local wound care 3-patient with stage II left leg pressure ulcer no cellulitis recommend local wound care 4-patient with multiple antibiotic allergies that would limit the number of a ntibiotics safe to use Plan: 1-change Charles catheter and obtain urine culture from the new Charles 2-patient to continue daptomycin at this point 3-local wound care to sacral wound with the wound VAC continue especially of 125 mmHg team unable to Wednesday 4-local wound care to left leg wound with Aquacel silver dressing We will follow on clinical condition and cultures to further adjust medication if needed Thank you for this consultation we will follow the patient along with you Time with Patient: Greater than 30
[2021-02-27] MEDS: IPRATROPIUM-ALBUTEROL 3 ML NEB INHALATION SCH ×5 (00:40→20:08)
[2021-02-27] MEDS: SUCRALFATE 1 GM TAB PO SCH ×3 (05:22→17:33)
[2021-02-27] MEDS: DAPTOmycin 500 MG in SODIUM CHLORIDE 0.9% 50 ML IVPB SCH (05:23)
[2021-02-27] MEDS: LEVOTHYROXINE 100 MCG TAB PO SCH (05:23)
[2021-02-27 07:08] LABS: Glucose,Whole Blood 95 mg/dL (75-99)
[2021-02-27] MEDS: INSULIN ASPART (NovoLOG) 100 UNIT/ML VIAL SQ SCH ×4 (07:11→20:04)
[2021-02-27] MEDS: NON FORMULARY DRUG (Liquacel 30 ML) PO SCH ×3 (07:49→17:34)
[2021-02-27] MEDS: LORATADINE 10 MG TAB PO SCH (08:04)
[2021-02-27] MEDS: POTASSIUM CHLORIDE ER 20 MEQ TAB.ER PO SCH ×2 (08:04→17:34)
[2021-02-27] MEDS: FUROSEMIDE 40 MG TAB PO SCH ×2 (08:04→17:33)
[2021-02-27] MEDS: PREGABALIN 100 MG CAP PO SCH ×2 (08:04→17:33)
[2021-02-27] MEDS: LACTOBACILLUS ACIDOPH & BULGAR 1 EACH PACKET PO SCH (08:04)
[2021-02-27] MEDS: FERROUS SULFATE 325 MG TAB PO SCH ×2 (08:04→17:33)
[2021-02-27] MEDS: SODIUM CHLORIDE 0.9% 1,000 ML IV SCH (08:05)
[2021-02-27] MEDS: predniSONE 1 MG TAB PO SCH (08:05)
[2021-02-27] MEDS: RIVAROXABAN 20 MG TAB PO SCH (08:05)
[2021-02-27] MEDS: ONDANSETRON 4 MG/2 ML VIAL IVP PRN ×2 (08:31→17:34)
[2021-02-27] MEDS: PANTOPRAZOLE 40 MG/10 ML VIAL IVP SCH (08:31)
[2021-02-27] MEDS: HYDROCORTISONE SUCCINATE 100 MG/2 ML VIAL IV SCH ×2 (08:31→20:04)
[2021-02-27 11:37] LABS: Glucose,Whole Blood 162 mg/dL (75-99)
--- NOTE | 2021-02-27 11:44 | P.PN ---
Subjective Progress Note Date: 02/27/21 HISTORY OF PRESENT ILLNESS This is a 70-year-old female patient of mine with a previous medical history significant for rheumatoid arthritis with significant deformities, currently wheelchair bound/bedbound, nonhealing wounds for bilateral lower extremities as well as stage IV sacral decubitus ulcer for which she has been treated with a wound VAC, she has been following with the wound healing Center at [facility] with Dr. Medina at [facility] on a weekly basis. He should has been on multiple courses of IV antibiotics and developed ALLERGIC reaction to cefepime which is now considered an ALLERGY. Her most recent hospitalization was on February 12 through February 15 at which time she was found to be hypotensive related to sepsis secondary to an acute Pseudomonas catheter associated urinary tract infection. She was discharged on Levaquin for a 1 week course as advised by Dr. Rangel and had completed the course of treatment. Yesterday morning, patient had low pulse ox and chest x-ray was ordered which revealed heart moderately enlarged, central venous congestion without overt failure similar to previous. No confluent infiltrate. No effusion or pneum othorax. Mediastinum and hilar structures are unremarkable. Later in the day, patient developed increased confusion, shaking movements. She was unable to follow conversation. She did not have fevers. Her heart rate was at 92. Pulse ox was 98% on 2 L nasal cannula. Patient was admitted into [facility] emergency center for evaluation where she was found to be afebrile, pulse ox 95% on 2 L nasal cannula, heart rate 74, blood pressure 118/79. CBC was unremarkable. Sodium 13 6, potassium 4.1, chloride 97, CO2 34, BUN 54, creatinine 0.94. Blood sugar 113. Total bilirubin 0.2, AST 29, ALT 21, alkaline phosphatase 132. Magnesium 2.2. Urinalysis was cloudy, nitrate positive, leukoesterase large, wbc's 23. Patient was given 2 L of IV fluids, started on daptomycin and admitted to the [facility] floor. Blood culture was ordered and urine culture obtained. Patient's mental status is at baseline. 02/27: Patient complains of headache, stomachache and nausea and lack of appetite. She denies having any diarrhea. Prednisone will be discontinued and patient started on Solu-Cortef. Patient has been afebrile, heart rate 94, blood pressure 95/60, pulse ox 97% on 2 L nasal cannula. Capillary blood glucose running between 95 and 267. Urine culture and blood culture in process. Patient has been seen by Dr. Giang with recommendations to change Charles catheter and continue daptomycin. Continue local wound care to the sacral wound with a wound VAC ordered. Left lower leg wounds with Aquacel Ag dressing. REVIEW OF SYSTEMS Constitutional: No fever, no chills, no night sweats. No weight change. Reported weakness, reported fatigue reported lethargy. Reported daytime sleepiness. EENT: No headache. No blurred vision or double vision, no loss of vision. No loss of Hearing, no ringing in the ears, reports dizziness. No nasal drainage or congestion. No epistaxis. No sore throat. Lungs: No shortness of breath, cough, no sputum production. No wheezing. Cardiovascular: No chest pain, no lower extremity edema. No palpitations. No paroxysmal nocturnal dyspnea. No orthopnea. No lightheadedness reports dizziness. No syncopal episodes. Abdominal: No abdominal pain. Reports nausea, no vomiting. No diarrhea. No constipation. No bloody or tarry stools.. Reported loss of appetite. Genitourinary: No dysuria, increased frequency, urgency. No urinary retention. Musculoskeletal: No myalgias. No muscle weakness, no gait dysfunction, no frequent falls. No back pain. No neck pain. Integumentary: Noted wounds, chronic to bilateral lower legs which are healing nicely and decubitus sacrum. No rash or pruritus. No unusual bruising. No change in hair or nails. Neurologic: No aphasia. No facial droop. Noted change in mentation. No head injury. No headache. No paralysis. No paresthesia. Psychiatric: No depression. No anxiety. No mood swings. Endocrine: No abnormal blood sugars. PHYSICAL EXAMINATION Gen: This is is a morbidly obese 70-year-old white female. She is resting in bed. She appears to be comfortable. HEENT: Head is atraumatic, normocephalic. Pupils equal, round. Sclerae is ani cteric. NECK: Supple. No JVD. No lymphadenopathy. No thyromegaly. LUNGS: Clear to auscultation. No wheezes or rhonchi. No intercostal retractions. HEART: First heart sound is depressed, second heart sounds normal, there is systolic murmur 2/6. Left sternal border. ABDOMEN: Soft. Bowel sounds are present. No masses. No tenderness. EXTREMITIES: No pedal edema. No calf tenderness. Wound to the coccyx area, wounds left lower extremity. NEUROLOGICAL: Patient is awake, alert and oriented to 3. Generalized weakness. ASSESSMENT AND PLAN 1. Metabolic encephalopathy secondary to possible sepsis, UTI. Mental status is back to baseline. Patient is currently on daptomycin. Consult with Dr. Rangel, urine culture, blood culture to be obtained. Fentanyl patch, Freeman and a refill on hold. 2. Bilateral nonhealing wounds to the lower extremities and chronic sacral decubitus. Patient has been under the care of the wound center and Dr. Medina at [facility]. Wound VAC and local wound care per Dr. Rangel. 3. Rheumatoid arthritis with chronic pain, significant deformities, wheelchair bound. Hold fentanyl patch 25 g per hour every 72 hours, Freeman 10 one every 8 hours as needed and 1 daily. Continue Arava 20 mg daily Lyrica 100 mg twice daily, discontinue prednisone and start Solu-Cortef 25 mg twice daily. 4. Anemia of chronic illness. Continue ferrous sulfate 325 mg twice daily. 5. History of DVT. Xarelto 20 mg daily. 6. Hypothyroidism. Continue levothyroxine 200 g daily. 7. Peripheral neuropathy. Continue patient on Lyrica 100 mg orally twice every day. 8. Chronic Charles catheter. Due to nonhealing decubitus ulcers. Charles to be changed. 9. DVT prophylaxis. We will maintain the patient on Xarelto 20 mg orally once every day. 10. GI prophylaxis. Continue Carafate 3 times daily. Patient is full code. DISCHARGE PLAN Return to [facility]. Impression and plan of care have been directed as dictated by the signing physician. Arlene Darnell nurse practitioner acting as scribe for signing physician. Objective - Vital Signs Vital signs: Vital Signs Temp 98.4 F 02/27/21 02:00 Pulse 88 02/27/21 02:00 Resp 17 02/27/21 02:00 BP 101/66 02/27/21 02:00 Pulse Ox 99 02/27/21 02:00 Intake & Output 02/26/21 02/27/21 02/27/21 18:59 06:59 18:59 Output Total 1510 2200 Balance -1510 -2199 Weight 117.934 kg Output: Urine 151 2200 Uretheral (Charles) 310 Other: Voiding Method Indwelling Catheter Indwelling Catheter - Labs CBC & Chem 7: 02/26/21 00:14 02/26/21 00:14 Labs: Abnormal Lab Results - Last 24 Hours (Table) 02/26/21 02/26/21 02/26/21 Range/Units 11:45 16:45 20:56 POC Glucose (mg/dL) 131 H 136 H 267 H (75-99) mg/dL Microbiology - Last 24 Hours (Table) 02/26/21 15:45 Urine Culture - Preliminary Urine,Catheterized 02/26/21 00:14 Urine Culture - Preliminary Urine,Voided
[2021-02-27 11:46] LABS: HCT 35.5 % (37.2-46.3); HGB 10.1 g/dL (12.0-15.0); MCH 28.2 pg (27.0-32.0); MCHC 28.5 g/dL (32.0-37.0); MCV 99.2 fL (80.0-97.0); Mean Platelet Volume 10.5 fL (9.5-12.2); Platelet Count 294 X 10*3/uL (140-440); RBC 3.58 X 10*6/uL (4.10-5.20); RDW 15.3 % (11.5-14.5); WBC 7.19 X 10*3/uL (4.50-10.00)
[2021-02-27 14:36] LABS: Hemoglobin A1C 6.1 % (4.0-6.0)
[2021-02-27 14:37] LABS: African American GFR (CKD) 85.4 (60.0-200.0); Albumin 3.4 g/dL (3.80-4.90); Albumin/Globulin Ratio 1.62 (1.60-3.17); Anion Gap 7.6 mmol/L (4.00-12.00); Calcium 9.5 mg/dL (8.7-10.3); Carbon Dioxide 35.4 mmol/L (21.6-31.8); Globulin 2.1 g/dL (1.6-3.3); Non-African American GFR(CKD) 73.7 (60.0-200.0); Potassium 3.4 mmol/L (3.5-5.5); Total Bilirubin 0.4 mg/dL (0.2-1.2); Total Protein 5.5 g/dL (6.2-8.2)
[2021-02-27 16:34] LABS: Glucose,Whole Blood 178 mg/dL (75-99)
--- NOTE | 2021-02-27 17:59 | PN ---
PROGRESS NOTE DATE OF SERVICE: 02/27/2021. REASON FOR FOLLOW UP: Urinary tract infection. INTERVAL HISTORY: Patient is afebrile. The patient is currently breathing comfortably. Denies having any chest pain or cough. No abdominal pain or any worsening pain to the groin area. PHYSICAL EXAMINATION: Her blood pressure is 102/63 with pulse of 100. Temperature 98.4. She is 93% on 2 L nasal cannula. General description is an elderly female lying in bed in no distress. Respiratory system: Unlabored breathing, clear to auscultation anteriorly. Heart: S1, S2. Regular rate and rhythm. Abdomen soft, no tenderness. LABS: Hemoglobin is 10.1, white count of 10.1, BUN of 32, creatinine 0.8. The urine culture is currently pending. DIAGNOSTIC IMPRESSION AND PLAN: 1. Patient admitted to the hospital with mental status changes and concerning for a urinary tract infection. Patient is currently covered with daptomycin. Continue while waiting for the culture to finalize. 2. Patient with sacral and left leg wound. Local wound care to continue as ordered. MMODL / IJN: [id number] /
[2021-02-27 19:43] LABS: Glucose,Whole Blood 176 mg/dL (75-99)
[2021-02-28] MEDS: SUCRALFATE 1 GM TAB PO SCH ×3 (06:12→17:22)
[2021-02-28] MEDS: LEVOTHYROXINE 100 MCG TAB PO SCH (06:12)
[2021-02-28 06:58] LABS: Glucose,Whole Blood 108 mg/dL (75-99)
[2021-02-28] MEDS: INSULIN ASPART (NovoLOG) 100 UNIT/ML VIAL SQ SCH ×4 (07:07→21:56)
[2021-02-28] MEDS: IPRATROPIUM-ALBUTEROL 3 ML NEB INHALATION SCH ×4 (07:13→20:49)
[2021-02-28] MEDS ORDERED: POTASSIUM CHLORIDE ER 20 MEQ TAB.ER PO STA (08:17)
[2021-02-28] MEDS: PREGABALIN 100 MG CAP PO SCH ×2 (08:25→17:23)
[2021-02-28] MEDS: FERROUS SULFATE 325 MG TAB PO SCH ×2 (08:25→17:22)
[2021-02-28] MEDS: LACTOBACILLUS ACIDOPH & BULGAR 1 EACH PACKET PO SCH (08:25)
[2021-02-28] MEDS: RIVAROXABAN 20 MG TAB PO SCH (08:25)
[2021-02-28] MEDS: LORATADINE 10 MG TAB PO SCH (08:25)
[2021-02-28] MEDS: POTASSIUM CHLORIDE ER 20 MEQ TAB.ER PO SCH ×2 (08:25→17:23)
[2021-02-28] MEDS: FUROSEMIDE 40 MG TAB PO SCH ×2 (08:25→17:22)
[2021-02-28] MEDS: NON FORMULARY DRUG (Liquacel 30 ML) PO SCH ×3 (08:26→17:23)
[2021-02-28] MEDS ORDERED: HYDROcodone/APAP 10-325MG 1 EACH TAB PO PRN (09:07)
--- NOTE | 2021-02-28 09:09 | P.PN ---
Subjective Progress Note Date: 02/28/21 HISTORY OF PRESENT ILLNESS This is a 70-year-old female patient of mine with a previous medical history significant for rheumatoid arthritis with significant deformities, currently wheelchair bound/bedbound, nonhealing wounds for bilateral lower extremities as well as stage IV sacral decubitus ulcer for which she has been treated with a wound VAC, she has been following with the wound healing Center at [facility] with Dr. Medina at [facility] on a weekly basis. He should has been on multiple courses of IV antibiotics and developed ALLERGIC reaction to cefepime which is now considered an ALLERGY. Her most recent hospitalization was on February 12 through February 15 at which time she was found to be hypotensive related to sepsis secondary to an acute Pseudomonas catheter associated urinary tract infection. She was discharged on Levaquin for a 1 week course as advised by Dr. Rangel and had completed the course of treatment. Yesterday morning, patient had low pulse ox and chest x-ray was ordered which revealed heart moderately enlarged, central venous congestion without overt failure similar to previous. No confluent infiltrate. No effusion or pneum othorax. Mediastinum and hilar structures are unremarkable. Later in the day, patient developed increased confusion, shaking movements. She was unable to follow conversation. She did not have fevers. Her heart rate was at 92. Pulse ox was 98% on 2 L nasal cannula. Patient was admitted into [facility] emergency center for evaluation where she was found to be afebrile, pulse ox 95% on 2 L nasal cannula, heart rate 74, blood pressure 118/79. CBC was unremarkable. Sodium 13 6, potassium 4.1, chloride 97, CO2 34, BUN 54, creatinine 0.94. Blood sugar 113. Total bilirubin 0.2, AST 29, ALT 21, alkaline phosphatase 132. Magnesium 2.2. Urinalysis was cloudy, nitrate positive, leukoesterase large, wbc's 23. Patient was given 2 L of IV fluids, started on daptomycin and admitted to the [facility] floor. Blood culture was ordered and urine culture obtained. Patient's mental status is at baseline. 02/27: Patient complains of headache, stomachache and nausea and lack of appetite. She denies having any diarrhea. Prednisone will be discontinued and patient started on Solu-Cortef. Patient has been afebrile, heart rate 94, blood pressure 95/60, pulse ox 97% on 2 L nasal cannula. Capillary blood glucose running between 95 and 267. Urine culture and blood culture in process. Patient has been seen by Dr. Giang with recommendations to change Charles catheter and continue daptomycin. Continue local wound care to the sacral wound with a wound VAC ordered. Left lower leg wounds with Aquacel Ag dressing. 02/28: Patient states that she is not eating much but nausea is better. She's still seems to be quite weak. She is taking Ensure. Patient has been placed on an air mattress and wound VAC is in place. She denies having any fever and no cough. IV fluids changed to saline lock from KVO. She has continued on Lasix at 40 mg twice daily. She is on antibiotics in form of daptomycin IV and urine culture is showing gram-negative bacilli, sensitivity is pending. Blood culture showing no growth at 24 hours. She has been afebrile, heart rate 91, blood pressure 92/62, pulse ox 98% on 2 L nasal cannula. Laboratory studies from yesterday revealed WBC 7.1, hemoglobin 10.1, platelet count 294. Sodium 146, potassium 3.4 and will be replaced, chloride 103, CO2 35, BUN 32 and creatinine 0.8. Blood sugars are running between 82 and 178. Hemoglobin A1c was 6.1. Liver function tests were normal. Patient will be resumed back on fentanyl patch, [place] and Arava. Anticipate probable return to [facility] on Wednesday. REVIEW OF SYSTEMS Constitutional: No fever, no chills, no night sweats. No weight change. Reported weakness, reported fatigue reported lethargy. Reported daytime sleepiness. EENT: No headache. No blurred vision or double vision, no loss of vision. No loss of Hearing, no ringing in the ears, reports dizziness. No nasal drainage or congestion. No epistaxis. No sore throat. Lungs: No shortness of breath, cough, no sputum production. No wheezing. Cardiovascular: No chest pain, no lower extremity edema. No palpitations. No paroxysmal nocturnal dyspnea. No orthopnea. No lightheadedness reports dizziness. No syncopal episodes. Abdominal: No abdominal pain. Denies nausea, no vomiting. No diarrhea. No constipation. No bloody or tarry stools. Reported loss of appetite. Genitourinary: No dysuria, increased frequency, urgency. No urinary retention. Musculoskeletal: No myalgias. Reported muscle weakness, no gait dysfunction, no frequent falls. No back pain. No neck pain. Integumentary: Noted wounds, chronic to bilateral lower legs, right leg is healing, chronic wounds on the left lower leg and decubitus ulcer to the sacrum. No rash or pruritus. No unusual bruising. No change in hair or nails. Neurologic: No aphasia. No facial droop. Noted change in mentation. No head injury. No headache. No paralysis. No paresthesia. Psychiatric: No depression. No anxiety. No mood swings. Endocrine: No abnormal blood sugars. PHYSICAL EXAMINATION Gen: This is is a morbidly obese 70-year-old white female. She is resting in bed. She appears to be comfortable. HEENT: Head is atraumatic, normocephalic. Pupils equal, round. Sclerae is anicteric. NECK: Supple. No JVD. No lymphadenopathy. No thyromegaly. LUNGS: Clear to auscultation. No wheezes or rhonchi. No intercostal retractions. HEART: First heart sound is depressed, second heart sounds normal, there is systolic murmur 2/6. Left sternal border. ABDOMEN: Soft. Bowel sounds are present. No masses. No tenderness. EXTREMITIES: No pedal edema. No calf tenderness. Wound to the coccyx area, wounds left lower extremity. NEUROLOGICAL: Patient is awake, alert and oriented to 3. Generalized weakness. ASSESSMENT AND PLAN 1. Metabolic encephalopathy secondary to possible sepsis, UTI. Mental status is back to baseline. Patient is currently on daptomycin. Consult with Dr. Rangel, urine culture, blood culture to be obtained. Fentanyl patch, Leeds. 2. Bilateral nonhealing wounds to the lower extremities and chronic sacral decubitus. Patient has been under the care of the wound center and Dr. Medina at [facility]. Wound VAC has been resumed. 3. Rheumatoid arthritis with chronic pain, significant deformities, wheelchair bound. Resume fentanyl patch 25 g per hour every 72 hours, [place] 10 one every 8 hours as needed and 1 daily, Arava 20 mg daily. Continue Lyrica 100 mg twice daily, discontinue prednisone and start Solu-Cortef 25 mg twice daily. 4. Anemia of chronic illness. Continue ferrous sulfate 325 mg twice daily. 5. History of DVT. Xarelto 20 mg daily. 6. Hypothyroidism. Continue levothyroxine 200 g daily. 7. Peripheral neuropathy. Continue patient on Lyrica 100 mg orally twice every day. 8. Chronic Charles catheter. Due to nonhealing decubitus ulcers. Charles has been changed. 9. DVT prophylaxis. We will maintain the patient on Xarelto 20 mg orally once every day. 10. GI prophylaxis. Continue Carafate 3 times daily, Protonix 40 mg IVP daily. Patient is full code. DISCHARGE PLAN Return to [facility] on Wednesday. Impression and plan of care have been directed as dictated by the signing physician. Arlene Darnell nurse practitioner acting as scribe for signing physician. Objective - Vital Signs Vital signs: Vital Signs Temp 97.5 F L 02/28/21 02:00 Pulse 100 02/28/21 07:23 Resp 17 02/28/21 02:00 BP 107/70 02/28/21 02:00 Pulse Ox 91 L 02/28/21 02:00 Intake & Output 02/27/21 02/28/21 02/28/21 18:59 06:59 18:59 Output Total 1200 Balance -1200 Output: Urine 1200 Other: Voiding Method Indwelling Catheter Indwelling Catheter - Labs CBC & Chem 7: 02/27/21 07:39 02/27/21 07:39 Labs: Abnormal Lab Results - Last 24 Hours (Table) 02/27/21 02/27/21 02/27/21 Range/Units 07:39 07:39 07:39 RBC 3.58 L (4.10-5.20) X 10*6/uL Hgb 10.1 L (12.0-15.0) g/dL Hct 35.5 L (37.2-46.3) % MCV 99.2 H (80.0-97.0) fL MCHC 28.5 L (32.0-37.0) g/dL RDW 15.3 H (11.5-14.5) % Sodium 146 H (135-145) mmol/L Potassium 3.4 L (3.5-5.5) mmol/L Carbon Dioxide 35.4 H (21.6-31.8) mmol/L BUN 32.0 H (9.0-27.0) mg/dL BUN/Creatinine Ratio 40.00 H (12.00-20.00) Ratio POC Glucose (mg/dL) (75-99) mg/dL Hemoglobin A1c 6.1 H (4.0-6.0) % Total Protein 5.5 L (6.2-8.2) g/dL Albumin 3.40 L (3.80-4.90) g/dL 02/27/21 02/27/21 02/27/21 Range/Units 11:35 16:33 19:42 RBC (4.10-5.20) X 10*6/uL Hgb (12.0-15.0) g/dL Hct (37.2-46.3) % MCV (80.0-97.0) fL MCHC (32.0-37.0) g/dL RDW (11.5-14.5) % Sodium (135-145) mmol/L Potassium (3.5-5.5) mmol/L Carbon Dioxide (21.6-31.8) mmol/L BUN (9.0-27.0) mg/dL BUN/Creatinine Ratio (12.00-20.00) Ratio POC Glucose (mg/dL) 162 H 178 H 176 H (75-99) mg/dL Hemoglobin A1c (4.0-6.0) % Total Protein (6.2-8.2) g/dL Albumin (3.80-4.90) g/dL 02/28/21 Range/Units 06:57 RBC (4.10-5.20) X 10*6/uL Hgb (12.0-15.0) g/dL Hct (37.2-46.3) % MCV (80.0-97.0) fL MCHC (32.0-37.0) g/dL RDW (11.5-14.5) % Sodium (135-145) mmol/L Potassium (3.5-5.5) mmol/L Carbon Dioxide (21.6-31.8) mmol/L BUN (9.0-27.0) mg/dL BUN/Creatinine Ratio (12.00-20.00) Ratio POC Glucose (mg/dL) 108 H (75-99) mg/dL Hemoglobin A1c (4.0-6.0) % Total Protein (6.2-8.2) g/dL Albumin (3.80-4.90) g/dL Microbiology - Last 24 Hours (Table) 02/26/21 15:45 Urine Culture - Preliminary Urine,Catheterized Gram Neg Bacilli 02/26/21 16:30 Blood Culture - Preliminary Blood No Growth after 24 hours
[2021-02-28 09:33] LABS: Hypochromasia Marked; MCH 29.1 pg (25.0-35.0); MCHC 30.4 g/dL (31.0-37.0); MCV 95.6 fL (80.0-100.0); Mean Platelet Volume 7.6; Platelet Count 329 k/uL (150-450); RBC 3.77 m/uL (3.80-5.40); RDW 14.9 % (11.5-15.5); WBC 6.2 k/uL (3.8-10.6)
[2021-02-28 09:47] LABS: ALT 16 U/L (4-34); AST 18 U/L (14-36); African American GFR (CKD) 83 (>60 ml/min/1.73 sqM); Albumin 3.1 g/dL (3.5-5.0); Albumin/Globulin Ratio 1.2; Alkaline Phosphatase 111 U/L (38-126); Blood Urea Nitrogen 29 mg/dL (7-17); Calcium 10.1 mg/dL (8.4-10.2); Chloride 98 mmol/L (98-107); Globulin 2.6 g/dL; Glucose 135 mg/dL (74-99); Magnesium 1.9 mg/dL (1.6-2.3); Non-African American GFR(CKD) 72 (>60 ml/min/1.73 sqM); Potassium 3.3 mmol/L (3.5-5.1); Sodium 142 mmol/L (137-145); Total Bilirubin 0.3 mg/dL (0.2-1.3); Total Protein 5.7 g/dL (6.3-8.2)
[2021-02-28 09:54] LABS: Anion Gap 7 mmol/L
[2021-02-28 09:56] LABS: Carbon Dioxide 37 mmol/L (22-30)
[2021-02-28] MEDS: HYDROcodone/APAP 10-325MG 1 EACH TAB PO SCH (10:09)
[2021-02-28] MEDS: LEFLUNOMIDE 20 MG TAB PO SCH (10:09)
[2021-02-28] MEDS: HYDROCORTISONE SUCCINATE 100 MG/2 ML VIAL IV SCH ×2 (10:10→21:55)
[2021-02-28] MEDS: PANTOPRAZOLE 40 MG/10 ML VIAL IVP SCH (10:10)
[2021-02-28] MEDS: DAPTOmycin 500 MG in SODIUM CHLORIDE 0.9% 50 ML IVPB SCH (10:10)
[2021-02-28 11:19] LABS: Glucose,Whole Blood 194 mg/dL (75-99)
[2021-02-28] MEDS: AZTREONAM 2 GM in SODIUM CHLORIDE 0.9% 100 ML IVPB SCH ×2 (14:25→21:54)
[2021-02-28 17:09] LABS: Glucose,Whole Blood 149 mg/dL (75-99)
[2021-02-28 21:11] LABS: Glucose,Whole Blood 173 mg/dL (75-99)
--- NOTE | 2021-02-28 23:43 | PN ---
PROGRESS NOTE DATE OF SERVICE: 02/28/2021 REASON FOR FOLLOWUP: Urinary tract infection. INTERVAL HISTORY: The patient is afebrile. The patient is breathing comfortably. The patient denies having any chest pain. No shortness of breath or cough. No abdominal pain. No diarrhea. PHYSICAL EXAMINATION: Her blood pressure is 108/72 with a pulse of 89, temperature 97.9. She is 95% on 2 L nasal cannula. General description is an elderly female lying in bed in no distress. Respiratory system: Unlabored breathing, clear to auscultation anteriorly. Heart S1, S2. Regular rate and rhythm. Abdomen soft, no tenderness. LABS: Hemoglobin is 11.9, white count 6.2, BUN of 29, creatinine 0.82. Urine with an E coli. Blood culture negative. DIAGNOSTIC IMPRESSION AND PLAN: 1. Patient with catheter associated urinary tract infection for which the patient will be continued with the patient antibiotic will be switched over to Azactam because of her multiple antibiotic allergies. Continue daptomycin. 2. Patient with sacral and the left leg wound. Local wound care to continue as ordered. MMODL / IJN: [id number] /
[2021-03-01] MEDS: LEVOTHYROXINE 100 MCG TAB PO SCH (05:47)
[2021-03-01] MEDS: SUCRALFATE 1 GM TAB PO SCH ×3 (05:48→17:26)
[2021-03-01 06:54] LABS: Glucose,Whole Blood 122 mg/dL (75-99)
[2021-03-01] MEDS: INSULIN ASPART (NovoLOG) 100 UNIT/ML VIAL SQ SCH ×4 (07:58→21:48)
[2021-03-01] MEDS: NON FORMULARY DRUG (Liquacel 30 ML) PO SCH ×3 (07:58→17:26)
[2021-03-01] MEDS: AZTREONAM 2 GM in SODIUM CHLORIDE 0.9% 100 ML IVPB SCH ×2 (08:47→21:47)
[2021-03-01] MEDS: FERROUS SULFATE 325 MG TAB PO SCH ×2 (08:48→17:25)
[2021-03-01] MEDS: POTASSIUM CHLORIDE ER 20 MEQ TAB.ER PO SCH ×2 (08:48→17:25)
[2021-03-01] MEDS: LORATADINE 10 MG TAB PO SCH (08:48)
[2021-03-01] MEDS: PANTOPRAZOLE 40 MG TABLET PO SCH (08:48)
[2021-03-01] MEDS: HYDROCORTISONE SUCCINATE 100 MG/2 ML VIAL IV SCH ×2 (08:48→21:48)
[2021-03-01] MEDS: HYDROcodone/APAP 10-325MG 1 EACH TAB PO SCH (08:48)
[2021-03-01] MEDS: FUROSEMIDE 40 MG TAB PO SCH ×2 (08:48→17:26)
[2021-03-01] MEDS: PREGABALIN 100 MG CAP PO SCH ×2 (08:48→17:26)
[2021-03-01] MEDS: LACTOBACILLUS ACIDOPH & BULGAR 1 EACH PACKET PO SCH (08:48)
[2021-03-01] MEDS: LEFLUNOMIDE 20 MG TAB PO SCH (08:49)
[2021-03-01] MEDS: RIVAROXABAN 20 MG TAB PO SCH (08:49)
[2021-03-01] MEDS: IPRATROPIUM-ALBUTEROL 3 ML NEB INHALATION SCH ×4 (08:58→20:42)
[2021-03-01 11:45] LABS: Glucose,Whole Blood 240 mg/dL (75-99)
[2021-03-01 11:48] LABS: HCT 37.4 % (37.2-46.3); HGB 10.8 g/dL (12.0-15.0); MCH 28.2 pg (27.0-32.0); MCHC 28.9 g/dL (32.0-37.0); MCV 97.7 fL (80.0-97.0); Mean Platelet Volume 10.8 fL (9.5-12.2); Platelet Count 339 X 10*3/uL (140-440); RBC 3.83 X 10*6/uL (4.10-5.20); RDW 15.3 % (11.5-14.5); WBC 6.15 X 10*3/uL (4.50-10.00)
[2021-03-01 12:01] LABS: African American GFR (CKD) 65.2 (60.0-200.0); Albumin 3.6 g/dL (3.80-4.90); Albumin/Globulin Ratio 1.57 (1.60-3.17); Anion Gap 5.2 mmol/L (4.00-12.00); Calcium 10.2 mg/dL (8.7-10.3); Carbon Dioxide 37.8 mmol/L (21.6-31.8); Globulin 2.3 g/dL (1.6-3.3); Non-African American GFR(CKD) 56.2 (60.0-200.0); Potassium 4.2 mmol/L (3.5-5.5); Total Bilirubin 0.3 mg/dL (0.3-1.2); Total Protein 5.9 g/dL (6.2-8.2)
--- NOTE | 2021-03-01 16:50 | PN ---
PROGRESS NOTE DATE OF SERVICE: 03/01/2021 REASON FOR FOLLOWUP: Urinary tract infection. INTERVAL HISTORY: The patient is afebrile. The patient is breathing comfortably. The patient denies having any chest pain, shortness of breath or cough. No abdominal pain or diarrhea. PHYSICAL EXAMINATION: Her blood pressure is 103/64, pulse of 97, temperature 98.4. She is 92% on room air. General description is an elderly female lying in bed in no distress. Respiratory system: Unlabored breathing, clear to auscultation anteriorly. Heart S1, S2. Regular rate and rhythm. Abdomen soft, no tenderness. LABS: Hemoglobin 10.1, white count 6.15, BUN of 29 and creatinine 1.0. DIAGNOSTIC IMPRESSION AND PLAN: 1. Patient with E coli urinary tract infection with multiple allergies, on Azactam, to continue to finish a 7-day course of therapy and close outpatient followup. 2. Patient with wound to the sacrum and left leg. Continue local wound care as ordered. MMODL / IJN: [id number] /
[2021-03-01 17:19] LABS: Glucose,Whole Blood 166 mg/dL (75-99)
[2021-03-01 20:27] LABS: Glucose,Whole Blood 218 mg/dL (75-99)
[2021-03-02] MEDS: LEVOTHYROXINE 100 MCG TAB PO SCH (05:41)
[2021-03-02] MEDS: SUCRALFATE 1 GM TAB PO SCH ×3 (05:41→17:32)
[2021-03-02 06:41] LABS: Glucose,Whole Blood 117 mg/dL (75-99)
[2021-03-02] MEDS: INSULIN ASPART (NovoLOG) 100 UNIT/ML VIAL SQ SCH ×4 (07:16→21:17)
[2021-03-02] MEDS: IPRATROPIUM-ALBUTEROL 3 ML NEB INHALATION SCH ×4 (08:05→21:13)
[2021-03-02] MEDS: RIVAROXABAN 20 MG TAB PO SCH (08:55)
[2021-03-02] MEDS: POTASSIUM CHLORIDE ER 20 MEQ TAB.ER PO SCH ×2 (08:55→17:32)
[2021-03-02] MEDS: LEFLUNOMIDE 20 MG TAB PO SCH (08:55)
[2021-03-02] MEDS: PANTOPRAZOLE 40 MG TABLET PO SCH (08:55)
[2021-03-02] MEDS: HYDROCORTISONE SUCCINATE 100 MG/2 ML VIAL IV SCH ×2 (08:56→21:18)
[2021-03-02] MEDS: AZTREONAM 2 GM in SODIUM CHLORIDE 0.9% 100 ML IVPB SCH ×2 (08:56→21:17)
[2021-03-02] MEDS: PREGABALIN 100 MG CAP PO SCH ×2 (08:56→17:32)
[2021-03-02] MEDS: FUROSEMIDE 40 MG TAB PO SCH ×2 (08:56→17:32)
[2021-03-02] MEDS: LORATADINE 10 MG TAB PO SCH (08:56)
[2021-03-02] MEDS: LACTOBACILLUS ACIDOPH & BULGAR 1 EACH PACKET PO SCH (08:56)
[2021-03-02] MEDS: FERROUS SULFATE 325 MG TAB PO SCH ×2 (08:56→17:32)
[2021-03-02] MEDS: HYDROcodone/APAP 10-325MG 1 EACH TAB PO SCH (08:57)
[2021-03-02] MEDS: NON FORMULARY DRUG (Liquacel 30 ML) PO SCH ×3 (08:57→17:29)
[2021-03-02 11:45] LABS: Glucose,Whole Blood 188 mg/dL (75-99)
--- NOTE | 2021-03-02 11:59 | P.PN ---
Subjective Progress Note Date: 03/01/21 Principal diagnosis: E. coli urinary tract infection Bilateral lower extremity and sacral nonhealing wounds 70-year-old female patient of mine with a previous medical history significant for rheumatoid arthritis with significant deformities, currently wheelchair bound/bedbound, nonhealing wounds for bilateral lower extremities as well as stage IV sacral decubitus ulcer for which she has been treated with a wound VAC, she has been following with the wound healing Center at [facility] with Dr. Medina at [facility] on a weekly basis. He should has been on multiple courses of IV antibiotics and developed ALLERGIC reaction to cefepime which is now considered an ALLERGY. Her most recent hospitalization was on February 12 through February 15 at which time she was found to be hypotensive related to sepsis secondary to an acute Pseudomonas catheter associated urinary tract infection. She was discharged on Levaquin for a 1 week course as advised by Dr. Rangel and had completed the course of treatment. 03/01/2021 Patient is seen and evaluated in room at bedside; remains afebrile; denies any complaint of chest pain or shortness of breath, fever or chills Vital signs are reviewed and stable with a temperature of 98.4, pulse 87, blood pressure of 103/64 and O2 saturation of 92% on room air Lab review shows a white blood count of 6.15, hemoglobin 10.1, BUN/creatinine of 29/1.0 Patient with E. coli urinary tract infection with multiple ALLERGIES; currently on IV Azactam per ID recommendations; patient is to complete a 7 day course of therapy with close outpatient follow-up Continue local wound care to wounds to the sacrum and left leg Objective - Vital Signs Vital signs: Vital Signs Temp 98.7 F 03/01/21 08:00 Pulse 92 03/01/21 12:48 Resp 18 03/01/21 08:00 BP 133/82 03/01/21 08:00 Pulse Ox 100 03/01/21 08:00 Intake & Output 02/28/21 03/01/21 03/01/21 18:59 06:59 18:59 Intake Total 340 Output Total 800 Balance -800 340 Weight 117.934 kg Intake: Intake, IV Titration 340 Amount Aztreonam 2 gm In Sodium 100 Chloride 0.9% 100 ml @ 33 .3 mls/hr IVPB Q12HR [facility] Rx#:[id number] Sodium Chloride 0.9% 1, 240 000 ml @ 20 mls/hr IV . Q24H [facility] Rx#:[id number] Output: Urine 800 Other: Voiding Method Indwelling Catheter Indwelling Catheter Indwelling Catheter - Exam Gen: This is is a morbidly obese 70-year-old white female. She is resting in bed. She appears to be comfortable. HEENT: Head is atraumatic, normocephalic. Pupils equal, round. Sclerae is anicteric. NECK: Supple. No JVD. No lymphadenopathy. No thyromegaly. LUNGS: Clear to auscultation. No wheezes or rhonchi. No intercostal retractions. HEART: First heart sound is depressed, second heart sounds normal, there is systolic murmur 2/6. Left sternal border. ABDOMEN: Soft. Bowel sounds are present. No masses. No tenderness. EXTREMITIES: No pedal edema. No calf tenderness. Wound to the coccyx area, wounds left lower extremity. NEUROLOGICAL: Patient is awake, alert and oriented to 3. Generalized weakness. - Labs CBC & Chem 7: 03/01/21 07:30 03/01/21 07:30 Labs: Abnormal Lab Results - Last 24 Hours (Table) 02/28/21 02/28/21 03/01/21 Range/Units 17:08 21:08 06:52 RBC (4.10-5.20) X 10*6/uL Hgb (12.0-15.0) g/dL MCV (80.0-97.0) fL MCHC (32.0-37.0) g/dL RDW (11.5-14.5) % Carbon Dioxide (21.6-31.8) mmol/L BUN (9.0-27.0) mg/dL Est GFR (CKD-EPI)NonAf (60.0-200.0) BUN/Creatinine Ratio (12.00-20.00) Ratio POC Glucose (mg/dL) 149 H 173 H 122 H (75-99) mg/dL Total Protein (6.2-8.2) g/dL Albumin (3.80-4.90) g/dL Albumin/Globulin Ratio (1.60-3.17) g/dL 03/01/21 03/01/21 03/01/21 Range/Units 07:30 07:30 11:41 RBC 3.83 L (4.10-5.20) X 10*6/uL Hgb 10.8 L (12.0-15.0) g/dL MCV 97.7 H (80.0-97.0) fL MCHC 28.9 L (32.0-37.0) g/dL RDW 15.3 H (11.5-14.5) % Carbon Dioxide 37.8 H (21.6-31.8) mmol/L BUN 29.0 H (9.0-27.0) mg/dL Est GFR (CKD-EPI)NonAf 56.2 L (60.0-200.0) BUN/Creatinine Ratio 29.00 H (12.00-20.00) Ratio POC Glucose (mg/dL) 240 H (75-99) mg/dL Total Protein 5.9 L (6.2-8.2) g/dL Albumin 3.60 L (3.80-4.90) g/dL Albumin/Globulin Ratio 1.57 L (1.60-3.17) g/dL Microbiology - Last 24 Hours (Table) 02/26/21 15:45 Urine Culture - Final Urine,Catheterized Escherichia coli 02/26/21 16:30 Blood Culture - Preliminary Blood No Growth after 48 hours 02/26/21 00:14 Urine Culture - Final Urine,Voided Assessment and Plan Assessment: 1. E. coli urinary tract infection/sepsis - Patient has multiple ALLERGIES and is currently on Azactam per ID recommendations, plan to complete a seven-day course of therapy with close outpatient follow-up 2. Metabolic encephalopathy secondary to possible sepsis, UTI; resolved. 3. Bilateral nonhealing wounds to the lower extremities and chronic sacral decubitus. - Continue with local wound care as ordered; Patient has been under the care of the wound center and Dr. Medina at [facility]. Wound VAC has been resumed. - Patient has chronic Charles catheter which has been changed 4. Rheumatoid arthritis with chronic pain, significant deformities; - Patient is wheelchair bound. Resume fentanyl patch 25 g per hour every 72 hours, [place] 10 one every 8 hours as needed and 1 daily, Arava 20 mg daily; Continue Lyrica 100 mg twice daily, prednisone has been discontinued and started on Solu-Cortef 25 mg twice daily. 5. Anemia of chronic illness; at baseline. Continue ferrous sulfate 325 mg twice daily. 6. History of DVT; patient remains on Xarelto 20 mg daily. 7. Hypothyroidism; stable on home dose of levothyroxine 200 g daily. 8. Peripheral neuropathy; patient on Lyrica 100 mg orally twice every day. DVT prophylaxis; Xarelto 20 mg orally once every day. GI prophylaxis; Carafate 3 times daily, Protonix 40 mg IVP daily. CODE STATUS; full code
[2021-03-02 16:43] LABS: Glucose,Whole Blood 212 mg/dL (75-99)
--- NOTE | 2021-03-02 18:45 | P.PN ---
Subjective Progress Note Date: 03/02/21 Principal diagnosis: E. coli urinary tract infection Bilateral lower extremity and sacral nonhealing wounds 70-year-old female patient of mine with a previous medical history significant for rheumatoid arthritis with significant deformities, currently wheelchair bound/bedbound, nonhealing wounds for bilateral lower extremities as well as stage IV sacral decubitus ulcer for which she has been treated with a wound VAC, she has been following with the wound healing Center at [facility] with Dr. Medina at [facility] on a weekly basis. He should has been on multiple courses of IV antibiotics and developed ALLERGIC reaction to cefepime which is now considered an ALLERGY. Her most recent hospitalization was on February 12 through February 15 at which time she was found to be hypotensive related to sepsis secondary to an acute Pseudomonas catheter associated urinary tract infection. She was discharged on Levaquin for a 1 week course as advised by Dr. Rangel and had completed the course of treatment. 03/01/2021 Patient is seen and evaluated in room at bedside; remains afebrile; denies any complaint of chest pain or shortness of breath, fever or chills Vital signs are reviewed and stable with a temperature of 98.4, pulse 87, blood pressure of 103/64 and O2 saturation of 92% on room air Lab review shows a white blood count of 6.15, hemoglobin 10.1, BUN/creatinine of 29/1.0 Patient with E. coli urinary tract infection with multiple ALLERGIES; currently on IV Azactam per ID recommendations; patient is to complete a 7 day course of therapy with close outpatient follow-up Continue local wound care to wounds to the sacrum and left leg 03/02/2021 Patient is seen and evaluated in room at bedside; denies any complaint of fever or chills, chest pain or shortness of breath Vital signs are reviewed and stable with temperature of 98.4, pulse 97, respiration 18 and blood pressure 103/64 WBC 6.15 hemoglobin of 10.1 and B UN/creatinine of 29/1.0 Patient remains on IV Azactam for E. coli urinary tract infection; does have multiple ALLERGIES reported; ID recommending to finish a seven-day course of therapy with close outpatient follow-up; continue with local wound care Objective - Vital Signs Vital signs: Vital Signs Temp 97.9 F 03/02/21 07:06 Pulse 90 03/02/21 11:35 Resp 17 03/02/21 07:06 BP 99/62 03/02/21 07:06 Pulse Ox 97 03/02/21 07:06 Intake & Output 03/01/21 03/02/21 03/02/21 18:59 06:59 18:59 Intake Total 100 Output Total 500 600 Balance -500 -500 Intake: Intake, IV Titration 100 Amount Aztreonam 2 gm In Sodium 100 Chloride 0.9% 100 ml @ 33 .3 mls/hr IVPB Q12HR [facility] Rx#:[id number] Output: Urine 500 600 Other: Voiding Method Indwelling Catheter Indwelling Catheter Indwelling Catheter - Exam Gen: This is is a morbidly obese 70-year-old white female. She is resting in bed. She appears to be comfortable. HEENT: Head is atraumatic, normocephalic. Pupils equal, round. Sclerae is anicteric. NECK: Supple. No JVD. No lymphadenopathy. No thyromegaly. LUNGS: Clear to auscultation. No wheezes or rhonchi. No intercostal retractions. HEART: First heart sound is depressed, second heart sounds normal, there is systolic murmur 2/6. Left sternal border. ABDOMEN: Soft. Bowel sounds are present. No masses. No tenderness. EXTREMITIES: No pedal edema. No calf tenderness. Wound to the coccyx area, wounds left lower extremity. NEUROLOGICAL: Patient is awake, alert and oriented to 3. Generalized weakness. - Labs CBC & Chem 7: 03/01/21 07:30 03/01/21 07:30 Labs: Abnormal Lab Results - Last 24 Hours (Table) 03/01/21 03/01/21 03/02/21 Range/Units 17:16 20:25 06:39 POC Glucose (mg/dL) 166 H 218 H 117 H (75-99) mg/dL 03/02/21 Range/Units 11:41 POC Glucose (mg/dL) 188 H (75-99) mg/dL Microbiology - Last 24 Hours (Table) 02/26/21 16:30 Blood Culture - Preliminary Blood No Growth after 72 hours Assessment and Plan Assessment: 1. E. coli urinary tract infection/sepsis - Patient has multiple ALLERGIES and is currently on Azactam per ID rec ommendations, plan to complete a seven-day course of therapy with close outpatient follow-up 2. Metabolic encephalopathy secondary to possible sepsis, UTI; resolved. 3. Bilateral nonhealing wounds to the lower extremities and chronic sacral decubitus. - Continue with local wound care as ordered; Patient has been under the care of the wound center and Dr. Medina at [facility]. Wound VAC has been resumed. - Patient has chronic Charles catheter which has been changed 4. Rheumatoid arthritis with chronic pain, significant deformities; - Patient is wheelchair bound. Resume fentanyl patch 25 g per hour every 72 h ours, [place] 10 one every 8 hours as needed and 1 daily, Arava 20 mg daily; Continue Lyrica 100 mg twice daily, prednisone has been discontinued and started on Solu-Cortef 25 mg twice daily. 5. Anemia of chronic illness; at baseline. Continue ferrous sulfate 325 mg twice daily. 6. History of DVT; patient remains on Xarelto 20 mg daily. 7. Hypothyroidism; stable on home dose of levothyroxine 200 g daily. 8. Peripheral neuropathy; patient on Lyrica 100 mg orally twice every day. DVT prophylaxis; Xarelto 20 mg orally once every day. GI prophylaxis; Carafate 3 times daily, Protonix 40 mg IVP daily. CODE STATUS; full code
[2021-03-02 21:01] LABS: Glucose,Whole Blood 177 mg/dL (75-99)
[2021-03-03] MEDS: LEVOTHYROXINE 100 MCG TAB PO SCH (05:29)
[2021-03-03] MEDS: SUCRALFATE 1 GM TAB PO SCH ×2 (05:29→12:30)
--- NOTE | 2021-03-03 06:13 | PN ---
PROGRESS NOTE DATE OF SERVICE: 03/02/2021. REASON FOR FOLLOWUP: Catheter associated urinary tract infection. INTERVAL HISTORY: Patient is afebrile. The patient is breathing comfortably. Denies having any chest pain or cough. No nausea, vomiting, abdominal pain or diarrhea. PHYSICAL EXAMINATION: Blood pressure 195/59 with a pulse of 90, temperature 98.4. She is 94% on room air. General description is an elderly female lying in bed in no distress. Respiratory system: Unlabored breathing, clear to auscultation anteriorly. Heart S1, S2. Regular rate and rhythm. Abdomen soft, no tenderness. LABS: No new labs have been obtained today. DIAGNOSTIC IMPRESSION AND PLAN: Patient with an E coli urinary tract infection, catheter associated with multiple antibiotic allergies. She has responded to the Azactam to continue for another week to finish a course of therapy and continue supportive care. MMODL / IJN: [id number] /
[2021-03-03 07:04] LABS: Glucose,Whole Blood 115 mg/dL (75-99)
[2021-03-03] MEDS: INSULIN ASPART (NovoLOG) 100 UNIT/ML VIAL SQ SCH ×2 (07:22→12:30)
[2021-03-03 07:50] VITALS: BP 116/63; PULSE 84; RESP 18; TEMP 98.4
--- NOTE | 2021-03-03 08:22 | P.DS ---
Providers Date of admission: 02/26/21 08:28 Expected date of discharge: 03/03/21 Attending physician: Cierra Moyer Consults: 02/26/21 08:21 Consult Physician Routine Consulting Provider: Jocelyn Rangel Consult Reason/Comments: sepsis, uti Do you want consulting provider notified?: Yes Primary care physician: Cierra Moyer [facility] Course: This is 70-year-old female patient of mine with a previous medical history significant for rheumatoid arthritis with significant deformities, currently wheelchair bound/bedbound, nonhealing wounds for bilateral lower extremities as well as stage IV sacral decubitus ulcer for which she has been treated with a wound VAC, she has been following with the wound healing Center at [facility] with Dr. Medina at [facility] on a weekly basis. He should has been on multiple courses of IV antibiotics and developed ALLERGIC reaction to cefepime which is now considered an ALLERGY. Her most recent hospitalization was on February 12 through February 15 at which time she was found to be hypotensive related to sepsis secondary to an acute Pseudomonas catheter associated urinary tract infection. She was discharged on Levaquin for a 1 week course as advised by Dr. Rangel and had completed the course of treatment. 03/01/2021 Patient is seen and evaluated in room at bedside; remains afebrile; denies any complaint of chest pain or shortness of breath, fever or chills Vital signs are reviewed and stable with a temperature of 98.4, pulse 87, blood pressure of 103/64 and O2 saturation of 92% on room air Lab review shows a white blood count of 6.15, hemoglobin 10.1, BUN/creatinine of 29/1.0 Patient with E. coli urinary tract infection with multiple ALLERGIES; currently on IV Azactam per ID recommendations; patient is to complete a 7 day course of therapy with close outpatient follow-up Continue local wound care to wounds to the sacrum and left leg 03/02/2021 Patient is seen and evaluated in room at bedside; denies any complaint of fever or chills, chest pain or shortness of breath Vital signs are reviewed and stable with temperature of 98.4, pulse 97, respiration 18 and blood pressure 103/64 WBC 6.15 hemoglobin of 10.1 and B UN/creatinine of 29/1.0 Patient remains on IV Azactam for E. coli urinary tract infection; does have multiple ALLERGIES reported; ID recommending to finish a seven-day course of therapy with close outpatient follow-up; continue with local wound care 03/03: Patient denies any new complaints. She is feeling better today. She still has some abdominal bloating but she did have a large bowel movement yesterday. She feels like she is still constipated though. She denies having any shortness of breath. She is still on Solu-Cortef which will be transitioned to oral prednisone. She has been afebrile, heart rate 84, blood pressure 116/63, pulse ox 9094% on room air. Dr. Rangel is recommended Azactam for 2 week course. Patient will be discharged today in stable condition. DISCHARGE DIAGNOSES 1. E. coli Charles catheter-associated urinary tract infection andsepsis 2. Metabolic encephalopathy 3. Bilateral nonhealing wounds to the lower extremities and chronic sacral decubitus. 4. Rheumatoid arthritis with chronic pain, significant deformities; 5. Anemia of chronic illness 6. History of DVT 7. Hypothyroidism 8. Peripheral neuropathy DISCHARGE PLAN [facility] Impression and plan of care have been directed as dictated by the signing physician. Arlene Darnell nurse practitioner acting as scribe for signing physician. Patient Condition at Discharge: Good Plan - Discharge Summary Discharge Rx Participant: No New Discharge Prescriptions: New predniSONE 0 mg PO DIRECTED #30 tab Aztreonam [Azactam] 2 gm IVPB Q12HR #14 vial Continue Levothyroxine Sodium [Synthroid] 200 mcg PO DAILY@0600 Rivaroxaban [Xarelto] 20 mg PO DAILY@0800 Ferrous Sulfate [Feosol] 325 mg PO BID@0800,1700 Leflunomide [Arava] 20 mg PO DAILY@0800 Acetaminophen Tab [Tylenol] 650 mg PO Q6HR PRN tab PRN Reason: Fever And/ Or Pain Ondansetron [Zofran] 4 mg PO Q8HR PRN PRN Reason: Nausea Mag Hydrox/Aluminum Hyd/Simeth [Mylanta Maximum Strength Liq] 10 ml PO Q4H PRN PRN Reason: Gi Upset Ipratropium-Albuterol Nebulize [Duoneb 0.5 mg-3 mg/3 ml Soln] 3 ml INHALATION RT-QID@00,06,12,18 Furosemide [Lasix] 40 mg PO BID@0800,1700 Pregabalin [Lyrica] 100 mg PO BID@0800,1700 #6 cap Potassium Chloride [Klor-Con 20] 20 meq PO BID@0800,1700 Lactobacillus Acidophilus [Acidophilus Probiotic] 1 cap PO DAILY@0800 Ascorbic Acid [Vitamin C] 500 mg PO DAILY@0800 bisacodyL [Dulcolax] 10 mg RECTAL DAILY PRN PRN Reason: Constipation Loratadine [Claritin] 10 mg PO DAILY@0800 Magnesium Hydroxide [Milk of Magnesia Concentrate] 7,200 mg PO DAILY PRN PRN Reason: Constipation Hydrocortisone Cream [Hydrocortisone 1% Cream] 1 applic TOPICAL BID PRN PRN Reason: Rash Sucralfate [Carafate] 1 gm PO TID@0600,1100,1600 Liquacel 30 ml PO TID@0800,1200,1700 Lidocaine 5% Cream 1 applic TOPICAL DAILY PRN PRN Reason: WOUNDS fentaNYL 25MCG/HR PATCH [Duragesic 25MCG/HR] 1 patch TRANSDERM Q72H #1 patch HYDROcodone/APAP 10-325MG [[place] 10-325] 1 tab PO DAILY@0800 #3 tab HYDROcodone/APAP 10-325MG [[place] 10-325] 1 tab PO Q8H PRN #9 tab PRN Reason: Pain Discontinued Na Phos,M-B/Na Phos,Di-Ba [Fleet Adult] 133 ml RECTAL DAILY PRN PRN Reason: Constipation predniSONE 2 mg PO DAILY@0900 Loperamide HCl [Loperamide] 2 mg PO QID PRN PRN Reason: Diarrhea Discharge Medication List Levothyroxine Sodium [Synthroid] 200 mcg PO DAILY@0600 08/26/17 [History] Rivaroxaban [Xarelto] 20 mg PO DAILY@0800 07/10/19 [History] Ferrous Sulfate [Feosol] 325 mg PO BID@0800,1700 09/03/19 [History] Leflunomide [Arava] 20 mg PO DAILY@0800 10/10/19 [History] Acetaminophen Tab [Tylenol] 650 mg PO Q6HR PRN tab 02/26/20 [Rx] Ascorbic Acid [Vitamin C] 500 mg PO DAILY@0800 01/15/21 [History] Lactobacillus Acidophilus [Acidophilus Probiotic] 1 cap PO DAILY@0800 01/15/21 [History] Loratadine [Claritin] 10 mg PO DAILY@0800 01/15/21 [History] Ondansetron [Zofran] 4 mg PO Q8HR PRN 01/15/21 [History] Potassium Chloride [Klor-Con 20] 20 meq PO BID@0800,1700 01/15/21 [History] bisacodyL [Dulcolax] 10 mg RECTAL DAILY PRN 01/15/21 [History] Hydrocortisone Cream [Hydrocortisone 1% Cream] 1 applic TOPICAL BID PRN 01/28/21 [History] Liquacel 30 ml PO TID@0800,1200,1700 01/28/21 [History] Mag Hydrox/Aluminum Hyd/Simeth [Mylanta Maximum Strength Liq] 10 ml PO Q4H PRN 01/28/21 [History] Magnesium Hydroxide [Milk of Magnesia Concentrate] 7,200 mg PO DAILY PRN 01/28/21 [History] Sucralfate [Carafate] 1 gm PO TID@0600,1100,1600 01/28/21 [History] Ipratropium-Albuterol Nebulize [Duoneb 0.5 mg-3 mg/3 ml Soln] 3 ml INHALATION RT-QID@00,06,12,18 02/12/21 [History] Lidocaine 5% Cream 1 applic TOPICAL DAILY PRN 02/12/21 [History] Furosemide [Lasix] 40 mg PO BID@0800,1700 02/26/21 [History] Aztreonam [Azactam] 2 gm IVPB Q12HR #14 vial 03/03/21 [Rx] HYDROcodone/APAP 10-325MG [[place] 10-325] 1 tab PO DAILY@0800 #3 tab 03/03/21 [Rx ] HYDROcodone/APAP 10-325MG [[place] 10-325] 1 tab PO Q8H PRN #9 tab 03/03/21 [Rx] Pregabalin [Lyrica] 100 mg PO BID@0800,1700 #6 cap 03/03/21 [Rx] fentaNYL 25MCG/HR PATCH [Duragesic 25MCG/HR] 1 patch TRANSDERM Q72H #1 patch 03/03/21 [Rx] predniSONE 0 mg PO DIRECTED #30 tab 03/03/21 [Rx] Follow up Appointment(s)/Referral(s): Cierra Moyer MD [Primary Care Provider] - 1 Week (at [facility] ) Activity/Diet/Wound Care/Special Instructions: Wound vac: Change Wednesday, Wednesday, Wednesday. 120mmHg, medium intensity. Pack opening with black granufoam, then tape.
[2021-03-03] MEDS: IPRATROPIUM-ALBUTEROL 3 ML NEB INHALATION SCH ×2 (08:34→11:48)
[2021-03-03] MEDS: PANTOPRAZOLE 40 MG TABLET PO SCH (08:45)
[2021-03-03] MEDS: LEFLUNOMIDE 20 MG TAB PO SCH (08:45)
[2021-03-03] MEDS: HYDROcodone/APAP 10-325MG 1 EACH TAB PO SCH (08:46)
[2021-03-03] MEDS: POTASSIUM CHLORIDE ER 20 MEQ TAB.ER PO SCH (08:46)
[2021-03-03] MEDS: PREGABALIN 100 MG CAP PO SCH (08:46)
[2021-03-03] MEDS: LORATADINE 10 MG TAB PO SCH (08:47)
[2021-03-03] MEDS: LACTOBACILLUS ACIDOPH & BULGAR 1 EACH PACKET PO SCH (08:47)
[2021-03-03] MEDS: FERROUS SULFATE 325 MG TAB PO SCH (08:47)
[2021-03-03] MEDS: HYDROCORTISONE SUCCINATE 100 MG/2 ML VIAL IV SCH (08:47)
[2021-03-03] MEDS: FUROSEMIDE 40 MG TAB PO SCH (08:47)
[2021-03-03] MEDS: AZTREONAM 2 GM in SODIUM CHLORIDE 0.9% 100 ML IVPB SCH (08:48)
[2021-03-03] MEDS: NON FORMULARY DRUG (Liquacel 30 ML) PO SCH ×2 (08:48→12:13)
[2021-03-03] MEDS: RIVAROXABAN 20 MG TAB PO SCH (08:48)
[2021-03-03 09:26] LABS: Basophils # (A) 0.05 X 10*3/uL (0.00-0.10); Basophils % (A) 0.7 %; Eosinophils # (A) 0.06 X 10*3/uL (0.04-0.35); Eosinophils % (A) 0.8 %; HCT 32.6 % (37.2-46.3); HGB 9.5 g/dL (12.0-15.0); Lymphocytes # (A) 0.84 X 10*3/uL (0.90-5.00); Lymphocytes % (A) 11.5 %; MCH 28.2 pg (27.0-32.0); MCHC 29.1 g/dL (32.0-37.0); MCV 96.7 fL (80.0-97.0); Monocytes # (A) 0.46 X 10*3/uL (0.20-1.00); Monocytes % (A) 6.3 %; Neutrophils # (A) 5.89 X 10*3/uL (1.80-7.70); Neutrophils % (A) 80.3 %; Platelet Count 292 X 10*3/uL (140-440); RBC 3.37 X 10*6/uL (4.10-5.20); RDW 15.3 % (11.5-14.5); WBC 7.33 X 10*3/uL (4.50-10.00)
[2021-03-03 10:14] LABS: Anion Gap 5.9 mmol/L (4.00-12.00); BUN/Creat Ratio 35.56 Ratio (12.00-20.00); Calcium 9.6 mg/dL (8.7-10.3); Carbon Dioxide 36.1 mmol/L (21.6-31.8); Non-African American GFR(CKD) 63.9 (60.0-200.0)
[2021-03-03 11:31] LABS: Glucose,Whole Blood 262 mg/dL (75-99)
--- NOTE | 2021-03-03 13:30 | PN ---
PROGRESS NOTE DATE OF SERVICE: 03/03/2021 REASON FOR FOLLOWUP: E. coli urinary tract infection with multiple antibiotic allergies. INTERVAL HISTORY: Patient is afebrile. Patient is breathing comfortably. No chest pain, shortness of breath or cough. No nausea, vomiting, no abdominal pain. No diarrhea. PHYSICAL EXAMINATION: Blood pressure 115/63 with a pulse of 84, temperature 98.4. She is 99% on room air. General description is an elderly female lying in bed in no distress. Respiratory system: Unlabored breathing, clear to auscultation anteriorly. Heart S1, S2. Regular rate and rhythm. Abdomen soft, no tenderness. LABS: Hemoglobin 9.5, white count 7.3, BUN of 32, creatinine 0.9. Urine showing an E coli. DIAGNOSTIC IMPRESSION/PLAN: This patient with E. coli urinary tract infection and MULTIPLE ANTIBIOTIC ALLERGIES clinically responding to Azactam to continue for another 7 days to finish a course of therapy and close outpatient followup. MMODL / IJN: [id number] /
== END 2021-03-03 13:20 | DRG 698 ==
LOC: EC 23:52 → 4SSUR 02-26 01:42 → OBSVTOIN 02-26 08:28 → 4SSUR 02-26 15:10
PROVIDERS: ADMIT Internal Medicine; ATTEND Internal Medicine
PROC: 05HF33Z Insertion of Infusion Device into Left Cephalic Vein, Percutaneous Approach (ICD-10-PCS; principal; 2021-02-28 12:55)
DX: T83.511A Infection and inflammatory reaction due to indwelling urethral catheter, initial encounter (principal); A41.51 Sepsis due to Escherichia coli [E. coli]; G93.41 Metabolic encephalopathy; L89.154 Pressure ulcer of sacral region, stage 4; L97.919 Non-pressure chronic ulcer of unspecified part of right lower leg with unspecified severity; L03.312 Cellulitis of back [any part except buttock and flank]; R18.8 Other ascites; T36.1X5A Adverse effect of cephalosporins and other beta-lactam antibiotics, initial encounter; N39.0 Urinary tract infection, site not specified; I73.9 Peripheral vascular disease, unspecified; Z20.822 Contact with and (suspected) exposure to COVID-19; E66.01 Morbid (severe) obesity due to excess calories; L89.892 Pressure ulcer of other site, stage 2; I12.9 Hypertensive chronic kidney disease with stage 1 through stage 4 chronic kidney disease, or unspecified chronic kidney disease; N18.2 Chronic kidney disease, stage 2 (mild); M06.9 Rheumatoid arthritis, unspecified; G62.9 Polyneuropathy, unspecified; D63.8 Anemia in other chronic diseases classified elsewhere; E03.9 Hypothyroidism, unspecified; M79.7 Fibromyalgia; Z68.38 Body mass index [BMI] 38.0-38.9, adult; Z99.3 Dependence on wheelchair; Z74.01 Bed confinement status; Z90.49 Acquired absence of other specified parts of digestive tract; Z88.1 Allergy status to other antibiotic agents; Z88.0 Allergy status to penicillin; Z79.890 Hormone replacement therapy; Z79.2 Long term (current) use of antibiotics; Z79.891 Long term (current) use of opiate analgesic; Z79.52 Long term (current) use of systemic steroids; Z86.718 Personal history of other venous thrombosis and embolism; Z87.11 Personal history of peptic ulcer disease; Z86.14 Personal history of Methicillin resistant Staphylococcus aureus infection; Z87.440 Personal history of urinary (tract) infections; Z80.8 Family history of malignant neoplasm of other organs or systems; J84.10 Pulmonary fibrosis, unspecified; Y84.6 Urinary catheterization as the cause of abnormal reaction of the patient, or of later complication, without mention of misadventure at the time of the procedure; Z79.01 Long term (current) use of anticoagulants; Z79.899 Other long term (current) drug therapy
CPT/HCPCS: 36410; 36415; 71045; 76937; 80048; 80053; 81001; 83036; 83605; 83735; 84100; 84484; 85025; 85027; 85610; 85730; 87040; 87077; 87086; 87186; 87635; 93005; 94640; 94760

== ENCOUNTER → 2021-03-24 | Outpatient (CLI) | payer MEDICARE, OTHER ==
[2021-03-24 14:41] LABS: Basophils # (A) 0.05 X 10*3/uL (0.00-0.10); Basophils % (A) 0.7 %; Eosinophils # (A) 0.35 X 10*3/uL (0.04-0.35); Eosinophils % (A) 4.9 %; HCT 38.5 % (37.2-46.3); HGB 11.1 g/dL (12.0-15.0); Lymphocytes % (A) 16.7 %; MCH 28.2 pg (27.0-32.0); MCHC 28.8 g/dL (32.0-37.0); MCV 97.7 fL (80.0-97.0); Mean Platelet Volume 11.3 fL (9.5-12.2); Monocytes # (A) 0.54 X 10*3/uL (0.20-1.00); Monocytes % (A) 7.5 %; Neutrophils # (A) 5.03 X 10*3/uL (1.80-7.70); Neutrophils % (A) 69.9 %; Platelet Count 230 X 10*3/uL (140-440); RBC 3.94 X 10*6/uL (4.10-5.20); RDW 16.2 % (11.5-14.5); WBC 7.19 X 10*3/uL (4.50-10.00)
[2021-03-24 16:10] LABS: ALT 29 U/L (8-44); AST 33 U/L (13-35); African American GFR (CKD) 65.2 (60.0-200.0); Albumin/Globulin Ratio 1.75 (1.60-3.17); Alkaline Phosphatase 117 U/L (41-126); C Reactive Protein 2.2 mg/dL (0.0-0.8); Calcium 9.7 mg/dL (8.7-10.3); Carbon Dioxide 35.6 mmol/L (21.6-31.8); Chloride 100 mmol/L (96-109); Creatine Kinase <20 U/L (26-186); Glucose 93 mg/dL (70-110); Non-African American GFR(CKD) 56.2 (60.0-200.0); Potassium 3.8 mmol/L (3.5-5.5); Sodium 143 mmol/L (135-145); Total Bilirubin 0.3 mg/dL (0.3-1.2); Total Protein 5.5 g/dL (6.2-8.2)
[2021-03-24 17:09] LABS: Erythrocyte Sedimentation Rate 32 mm/Hr (0-30)
== END | disposition home or self-care (01) ==
LOC: LABMARSNF 10:17 → EDSTATUS 10:20
PROVIDERS: ATTEND Internal Medicine
DX: L89.154 Pressure ulcer of sacral region, stage 4 (principal); L97.923 Non-pressure chronic ulcer of unspecified part of left lower leg with necrosis of muscle
CPT/HCPCS: 36415; 80053; 82550; 85025; 85652; 86140

== ENCOUNTER 2021-09-29 06:40 | Inpatient (IN) | payer MEDICARE, OTHER ==
--- NOTE | 2021-09-29 07:11 | ED ---
General Adult HPI - General Chief complaint: Skin/Abscess/Foreign Body Stated complaint: poss sepsis Time Seen by Provider: 09/29/21 06:46 Source: patient, EMS, RN notes reviewed Mode of arrival: EMS Limitations: physical limitation - History of Present Illness Initial comments: This a 71-year-old female presents emergency department via EMS from our for evaluation for concerns of sepsis. There is report the patient was nonresponsive those patient states that she was very tired all day yesterday states that she was sleeping and they attempted to wake up and clay maker. Patient states she does remember this event. Patient states that she has no specific complaint other than she feels tired. Denies chest pain shortness breath headache or dizziness currently. She does have known wounds, does have an known Charles catheter is had multiple recent infections. Patient states she does have a PICC line in her right arm does not believe that she is on any antibiotics at this time. She denies any abdominal pain no other complaints. - Related Data Home Medications Medication Instructions Recorded Confirmed Ferrous Sulfate [Feosol] 325 mg PO BID@0800,1700 09/03/19 09/29/21 Leflunomide [Arava] 20 mg PO DAILY@0800 10/10/19 09/29/21 Ascorbic Acid [Vitamin C] 500 mg PO DAILY@0800 01/15/21 09/29/21 Lactobacillus Acidophilus 1 cap PO DAILY@0800 01/15/21 09/29/21 [Acidophilus Probiotic] Loratadine [Claritin] 10 mg PO DAILY@0800 01/15/21 09/29/21 Ondansetron [Zofran] 4 mg PO Q6H PRN 01/15/21 09/29/21 Potassium Chloride [Klor-Con 20] 20 meq PO BID@0800,1700 01/15/21 09/29/21 bisacodyL [Dulcolax] 10 mg RECTAL DAILY PRN 01/15/21 09/29/21 Magnesium Hydroxide [Milk of 7,200 mg PO DAILY PRN 01/28/21 09/29/21 Magnesia Concentrate] Sucralfate [Carafate] 1 gm PO TID@0600,1100,1630 01/28/21 09/29/21 Furosemide [Lasix] 40 mg PO DAILY@0800 02/26/21 09/29/21 Acetaminophen Tab [Tylenol] 650 mg PO Q4H PRN 09/29/21 09/29/21 Albuterol Nebulized [Ventolin 2.5 mg INHALATION RT-TID PRN 09/29/21 09/29/21 Nebulized] Levothyroxine Sodium [Synthroid] 75 mcg PO DAILY@0600 09/29/21 09/29/21 Lidocaine [Lidocaine 5% Rectal 1 applic TOPICAL DIRECTED PRN 09/29/21 09/29/21 Cream] Metoprolol Tartrate [Lopressor] 25 mg PO BID@0800,1700 09/29/21 09/29/21 Na Phos,M-B/Na Phos,Di-Ba [Fleet 133 ml RECTAL DAILY PRN 09/29/21 09/29/21 Adult] predniSONE 7 mg PO DAILY@0800 09/29/21 09/29/21 Previous Rx's Medication Instructions Recorded HYDROcodone/APAP 10-325MG [[place] 1 tab PO DAILY@0800 #3 tab 03/03/21 10-325] HYDROcodone/APAP 10-325MG [[place] 1 tab PO Q8H PRN #9 tab 03/03/21 10-325] Pregabalin [Lyrica] 100 mg PO BID@0800,1700 #6 cap 03/03/21 Allergies Allergy/AdvReac Type Severity Reaction Status Date / Time cefepime Allergy Rash/Hives Verified 09/29/21 08:11 ceftriaxone [From Rocephin] Allergy Rash/Hives Verified 09/29/21 08:11 meropenem Allergy Unknown Verified 09/29/21 08:11 Penicillins Allergy Rash/Hives Verified 09/29/21 08:11 POSITIVE TB REACTOR Allergy Unknown Uncoded 02/26/21 07:00 Review of Systems ROS Statement: Those systems with pertinent positive or pertinent negative responses have been documented in the HPI. ROS Other: All systems not noted in ROS Statement are negative. Past Medical History Past Medical History: Deep Vein Thrombosis (DVT), Fibromyalgia, GI Bleed, Hypertension, Renal Disease, Rheumatoid Arthritis (RA), Skin Disorder, Thyroid Disorder Additional Past Medical History / Comment(s): Hx bleeding stomach ulcer. CKD, stage II; "Leaky bladder," "poor circulation," current Wound rt buttock, with wound vac, wound left lower leg, Hx Rt hip fx, no surg. 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 Nodule exc from thyroid. Sinus surgery. surgical excision, debridment of sacrum w/ wound VAC placement on 08/05/15 and sx done(flap), developed pin hole leak - had 2nd sx to repair. Debridement wound care to RLE wound on 08/21/15. Past Anesthesia/Blood Transfusion Reactions: No Reported Reaction Additional Past Anesthesia/Blood Transfusion Reaction / Comment(s): Pt has received blood in past without reaction. Past Psychological History: No Psychological Hx Reported Smoking Status: Never smoker Past Alcohol Use History: None Reported Past Drug Use History: None Reported - Past Family History Mother Family Medical History: AFIB, Cancer Additional Family Medical History / Comment(s): skin cancer Father Family Medical History: Cancer, Liver Disease, Rheumatoid Arthritis (RA) Additional Family Medical History / Comment(s): Leukemia. at age 72 of liver problem. General Exam Limitations: physical limitation General appearance: alert, in no apparent distress Head exam: Present: atraumatic, normocephalic, normal inspection Eye exam: Present: normal appearance, PERRL, EOMI. Absent: scleral icterus, conjunctival injection, periorbital swelling ENT exam: Present: normal exam, mucous membranes moist Neck exam: Present: normal inspection, full ROM. Absent: tenderness, meningismus, lymphadenopathy Respiratory exam: Present: normal lung sounds bilaterally. Absent: respiratory distress, wheezes, rales, rhonchi, stridor Cardiovascular Exam: Present: regular rate, normal rhythm, normal heart sounds. Absent: systolic murmur, diastolic murmur, rubs, gallop, clicks GI/Abdominal exam: Present: soft, normal bowel sounds. Absent: distended, tenderness, guarding, rebound, rigid Neurological exam: Present: alert Course Vital Signs 09/29/21 09/29/21 09/29/21 06:44 07:21 08:28 Temperature 98.2 F Pulse Rate 93 81 Respiratory 18 18 Rate Blood Pressure 124/93 109/48 96/60 O2 Sat by Pulse 97 97 Oximetry 09/29/21 09:00 Temperature Pulse Rate 74 Respiratory 20 Rate Blood Pressure 97/60 O2 Sat by Pulse 91 L Oximetry Medical Decision Making - Medical Decision Making 70-year-old presented for possible unresponsive episode. There is no clear evidence of this though she's had some marginal hypotension, does have a large wax wound with recent culture of MRSA. I did discuss case with PCP doctor Dr. Moyer recommends patient be placed on vancomycin, with consult to Dr. Rangel - Lab Data Result diagrams: 09/29/21 07:19 09/29/21 07:19 Lab Results 09/29/21 09/29/21 09/29/21 Range/Units 07:19 07:19 07:19 WBC 8.3 (3.8-10.6) k/uL RBC 4.79 (3.80-5.40) m/uL Hgb 14.3 (11.4-16.0) gm/dL Hct 47.7 H (34.0-46.0) % MCV 99.6 (80.0-100.0) fL MCH 29.8 (25.0-35.0) pg MCHC 29.9 L (31.0-37.0) g/dL RDW 16.2 H (11.5-15.5) % Plt Count 242 (150-450) k/uL MPV 9.4 Neutrophils % 71 % Lymphocytes % 15 % Monocytes % 8 % Eosinophils % 3 % Basophils % 1 % Neutrophils # 5.8 (1.3-7.7) k/uL Lymphocytes # 1.3 (1.0-4.8) k/uL Monocytes # 0.7 (0-1.0) k/uL Eosinophils # 0.2 (0-0.7) k/uL Basophils # 0.1 (0-0.2) k/uL Hypochromasia Marked Anisocytosis Slight Macrocytosis Slight Sodium 135 L (137-145) mmol/L Potassium 4.7 (3.5-5.1) mmol/L Chloride 95 L (98-107) mmol/L Carbon Dioxide 34 H (22-30) mmol/L Anion Gap 6 mmol/L BUN 73 H (7-17) mg/dL Creatinine 1.21 H (0.52-1.04) mg/dL Est GFR (CKD-EPI)AfAm 52 (>60 ml/min/1.73 sqM) Est GFR (CKD-EPI)NonAf 45 (>60 ml/min/1.73 sqM) Glucose 144 H (74-99) mg/dL Plasma Lactic Acid Darryl (0.7-2.0) mmol/L Calcium 9.4 (8.4-10.2) mg/dL Magnesium 2.6 H (1.6-2.3) mg/dL Total Bilirubin 0.5 (0.2-1.3) mg/dL AST 38 H (14-36) U/L ALT 40 H (4-34) U/L Alkaline Phosphatase 157 H (38-126) U/L Troponin I (0.000-0.034) ng/mL Total Protein 6.7 (6.3-8.2) g/dL Albumin 3.5 (3.5-5.0) g/dL Urine Color Yellow Urine Appearance Cloudy H (Clear) Urine pH 8.5 H (5.0-8.0) Ur Specific [place] 1.019 (1.001-1.035) Urine Protein 3+ H (Negative) Urine Glucose (UA) Negative (Negative) Urine Ketones Negative (Negative) Urine Blood Negative (Negative) Urine Nitrite Negative (Negative) Urine Bilirubin Negative (Negative) Urine Urobilinogen <2.0 (<2.0) mg/dL Ur Leukocyte Esterase Large H (Negative) Urine RBC 3 (0-5) /hpf Urine WBC 3 (0-5) /hpf Ur Squamous Epith Cells 1 (0-4) /hpf Triple Phos Crystals Rare H (None) /hpf Amorphous Sediment Occasional H (None) /hpf Urine Bacteria Rare H (None) /hpf Urine Mucus Rare H (None) /hpf 09/29/21 09/29/21 Range/Units 07:19 07:19 WBC (3.8-10.6) k/uL RBC (3.80-5.40) m/uL Hgb (11.4-16.0) gm/dL Hct (34.0-46.0) % MCV (80.0-100.0) fL MCH (25.0-35.0) pg MCHC (31.0-37.0) g/dL RDW (11.5-15.5) % Plt Count (150-450) k/uL MPV Neutrophils % % Lymphocytes % % Monocytes % % Eosinophils % % Basophils % % Neutrophils # (1.3-7.7) k/uL Lymphocytes # (1.0-4.8) k/uL Monocytes # (0-1.0) k/uL Eosinophils # (0-0.7) k/uL Basophils # (0-0.2) k/uL Hypochromasia Anisocytosis Macrocytosis Sodium (137-145) mmol/L Potassium (3.5-5.1) mmol/L Chloride (98-107) mmol/L Carbon Dioxide (22-30) mmol/L Anion Gap mmol/L BUN (7-17) mg/dL Creatinine (0.52-1.04) mg/dL Est GFR (CKD-EPI)AfAm (>60 ml/min/1.73 sqM) Est GFR (CKD-EPI)NonAf (>60 ml/min/1.73 sqM) Glucose (74-99) mg/dL Plasma Lactic Acid Darryl 1.4 (0.7-2.0) mmol/L Calcium (8.4-10.2) mg/dL Magnesium (1.6-2.3) mg/dL Total Bilirubin (0.2-1.3) mg/dL AST (14-36) U/L ALT (4-34) U/L Alkaline Phosphatase (38-126) U/L Troponin I 0.060 H* (0.000-0.034) ng/mL Total Protein (6.3-8.2) g/dL Albumin (3.5-5.0) g/dL Urine Color Urine Appearance (Clear) Urine pH (5.0-8.0) Ur Specific [place] (1.001-1.035) Urine Protein (Negative) Urine Glucose (UA) (Negative) Urine Ketones (Negative) Urine Blood (Negative) Urine Nitrite (Negative) Urine Bilirubin (Negative) Urine Urobilinogen (<2.0) mg/dL Ur Leukocyte Esterase (Negative) Urine RBC (0-5) /hpf Urine WBC (0-5) /hpf Ur Squamous Epith Cells (0-4) /hpf Triple Phos Crystals (None) /hpf Amorphous Sediment (None) /hpf Urine Bacteria (None) /hpf Urine Mucus (None) /hpf Disposition Clinical Impression: Pressure ulcer stage III, Wound infection, Sepsis Disposition: ADMITTED IP TO THIS HOSP Condition: Fair Referrals: Cierra Moyer MD [Primary Care Provider] - 1-2 days
[2021-09-29 07:47] LABS: Anisocytosis Slight; Basophils # (A) 0.1 k/uL (0-0.2); Basophils % (A) 1 %; Eosinophils # (A) 0.2 k/uL (0-0.7); Eosinophils % (A) 3 %; HCT 47.7 % (34.0-46.0); HGB 14.3 gm/dL (11.4-16.0); Hypochromasia Marked; Lymphocytes # (A) 1.3 k/uL (1.0-4.8); Lymphocytes % (A) 15 %; MCH 29.8 pg (25.0-35.0); MCHC 29.9 g/dL (31.0-37.0); MCV 99.6 fL (80.0-100.0); Macrocytosis Slight; Mean Platelet Volume 9.4; Monocytes # (A) 0.7 k/uL (0-1.0); Monocytes % (A) 8 %; Neutrophils # (A) 5.8 k/uL (1.3-7.7); Neutrophils % (A) 71 %; Platelet Count 242 k/uL (150-450); RBC 4.79 m/uL (3.80-5.40); RDW 16.2 % (11.5-15.5); WBC 8.3 k/uL (3.8-10.6)
[2021-09-29 07:51] LABS: Amorphous Sediment,Urine Occasional /hpf; Appearance,Urine Cloudy (Clear); Bacteria,Urine Rare /hpf; Bilirubin,Urine Negative (Negative); Blood,Urine Negative (Negative); Color,Urine Yellow; Glucose,Urine (UA) Negative (Negative); Ketones,Urine Negative (Negative); Leukocyte Esterase,Urine Large (Negative); Mucus,Urine Rare /hpf; Nitrite,Urine Negative (Negative); PH, Urine 8.5 (5.0-8.0); Protein,Urine 3+ (Negative); RBC,Urine 3 /hpf (0-5); Specific Gravity,Urine 1.019 (1.001-1.035); Squamous Epithelial Cell,Urine 1 /hpf (0-4); Triple Phosphate Crystal,Urine Rare /hpf; Urobilinogen,Urine <2.0 mg/dL (<2.0); WBC,Urine 3 /hpf (0-5)
[2021-09-29 07:55] LABS: Albumin 3.5 g/dL (3.5-5.0); Calcium 9.4 mg/dL (8.4-10.2); Magnesium 2.6 mg/dL (1.6-2.3); Potassium 4.7 mmol/L (3.5-5.1); Total Bilirubin 0.5 mg/dL (0.2-1.3); Total Protein 6.7 g/dL (6.3-8.2)
--- NOTE | 2021-09-29 08:13 | XR ---
EXAMINATION TYPE: XR chest 1V portable DATE OF EXAM: 09/29/2021 COMPARISON: Chest x-ray 02/26/2021 HISTORY: Weakness TECHNIQUE: Single frontal view of the chest is obtained. FINDINGS: There is patchy density within the lower lungs, left midlung, no pleural effusion, or pneu mothorax seen. The cardiac silhouette size is stable, heart may be enlarged. There are overlying art ifacts. Patient is rotated. Lung volumes are low. The osseous structures are unchanged, high riding right shoulder may be due to chronic rotator cuff tear, there is acromioclavicular joint arthropathy. IMPRESSION: Expiratory rotated exam. Difficult to exclude pneumonia, edema, atelectasis or scarring, follow-up PA and lateral chest x-ray suggested when patient is stable
[2021-09-29] MEDS ORDERED: VANCOMYCIN IV PER PHARMACY 1 EACH MISC MISCELLANE PRN (09:21)
[2021-09-29 09:23] LABS: INR 0.9 (<1.2); Partial Thromboplastin Time 22.3 sec (22.0-30.0); Prothrombin Time 9.9 sec (9.0-12.0)
[2021-09-29] MEDS ORDERED: SODIUM CHLORIDE 0.9% 500 ML 500 ML IV ONE ×3 (09:23→20:20)
[2021-09-29] MEDS ORDERED: NALOXONE 0.4 MG/ML 1 ML VIAL IV PRN (09:26)
[2021-09-29] MEDS ORDERED: ACETAMINOPHEN TAB 325 MG TAB PO PRN ×2 (09:26→11:18)
[2021-09-29] MEDS ORDERED: AZTREONAM 1 GM in SODIUM CHLORIDE 0.9% 50 ML IVPB STA (09:26)
[2021-09-29] MEDS ORDERED: HYDROcodone/APAP 10-325MG 1 EACH TAB PO PRN (09:27)
[2021-09-29] MEDS ORDERED: MAGNESIUM HYDROXIDE 2,400 MG/10 ML CUP PO PRN (09:27)
[2021-09-29] MEDS ORDERED: ALBUTEROL NEBULIZED 2.5 MG/3 ML INHALATION PRN (09:27)
[2021-09-29] MEDS ORDERED: LIDOCAINE 5% OINTMENT 50 GM JAR TOPICAL PRN (09:27)
[2021-09-29] MEDS ORDERED: bisacodyL 10 MG SUPP RECTAL PRN (09:27)
[2021-09-29] MEDS ORDERED: ONDANSETRON 4 MG TAB PO PRN (09:27)
[2021-09-29] MEDS: SODIUM CHLORIDE 0.9% 1,000 ML IV SCH ×2 (10:01→21:13)
[2021-09-29] MEDS ORDERED: VANCOMYCIN 2,250 MG in SODIUM CHLORIDE 0.9% 500 ML 500 ML IVPB ONE (10:30)
[2021-09-29] MEDS: SUCRALFATE 1 GM TAB PO SCH ×2 (11:10→18:34)
[2021-09-29] MEDS ORDERED: PANTOPRAZOLE 40 MG/10 ML VIAL IVP SCH ×2 (16:45→18:00)
[2021-09-29] MEDS ORDERED: METOPROLOL TARTRATE 25 MG TAB PO SCH (17:00)
[2021-09-29] MEDS ORDERED: PREGABALIN 100 MG CAP PO SCH (17:00)
[2021-09-29] MEDS ORDERED: POTASSIUM CHLORIDE ER 20 MEQ TAB.ER PO SCH (17:00)
[2021-09-29] MEDS ORDERED: FERROUS SULFATE 325 MG TAB PO SCH (17:00)
[2021-09-29 17:28] LABS: Appearance,Urine Cloudy (Clear); Bacteria,Urine Few /hpf; Bilirubin,Urine Negative (Negative); Blood,Urine Small (Negative); Color,Urine Yellow; Glucose,Urine (UA) Negative (Negative); Hyaline Casts,Urine 6 /lpf (0-2); Ketones,Urine Negative (Negative); Leukocyte Esterase,Urine Large (Negative); Mucus,Urine Rare /hpf; Nitrite,Urine Negative (Negative); Protein,Urine 2+ (Negative); RBC,Urine 18 /hpf (0-5); Specific Gravity,Urine 1.016 (1.001-1.035); Squamous Epithelial Cell,Urine 2 /hpf (0-4); Urobilinogen,Urine <2.0 mg/dL (<2.0); WBC,Urine 104 /hpf (0-5)
--- NOTE | 2021-09-29 17:49 | P.HPIM ---
History of Present Illness H&P Date: 09/29/21 Chief Complaint: Infected sacral decubitus ulcer with MRSA. HISTORY OF PRESENT ILLNESS This is a 71-year-old female patient of mine with a previous medical history significant for rheumatoid arthritis with significant deformities, currently wheelchair bound/bedbound, nonhealing wounds for bilateral lower extremities as well as stage IV sacral decubitus ulcer for which she has been treated with a wound VAC, she has been following with the wound healing Center at [facility] with Dr. Medina at [facility] on a weekly basis. Patient has been on multiple courses of IV antibiotics and developed ALLERGIC reaction to cefepime which is now considered an ALLERGY. Her most recent hospitalization was about a few weeks ago at [facility] when she was admitted to the hospital for what appears to be an infected decubitus ulcer and urinary tract infection she was treated with IV antibiotic and she was sent back to [facility] patient also recently developed to have a significant acute diastolic heart failure for which she was placed on IV Lasix as well as metolazone at the detention, and she has recovered very well and she had lost quite a bit of weight, patient did have a recent culture of her decubitus ulcer and she was found to have a MRSA I received a call from the nursing staff at [facility] today stating that the patient is quite lethargic having jerking movements and she appeared to be septic and hypotensive she was referred to the ER at this time for evaluation surprisingly her lactic acid came back normal white count were normal she appears to have a bit dehydration she was started on IV fluid resusci tation, and she was admitted to the hospital for evaluation and treatment by infectious disease, cultures were done as an outpatient showed MRSA she was started on vancomycin as well as Azactam infectious disease consultation was obtained. REVIEW OF SYSTEMS Constitutional: No fever, no chills, no night sweats. posiytive for weight change. Reported weakness, reported fatigue reported lethargy. Reported daytime sleepiness. HEENT: No headache. No blurred vision or double vision, no loss of vision. No loss of Hearing, no ringing in the ears, reports dizziness. No nasal drainage or congestion. No epistaxis. No sore throat. Lungs: No shortness of breath, cough, no sputum production. No wheezing. Cardiovascular: No chest pain, positive for lower extremity edema. No palpitations. No paroxysmal nocturnal dyspnea. No orthopnea. No lightheadedness reports dizziness. No syncopal episodes. Abdominal: No abdominal pain. No nausea, vomiting. No diarrhea. No constipation. No bloody or tarry stools.. Reported loss of appetite. Genitourinary: No dysuria, increased frequency, urgency. No urinary retention. Musculoskeletal: No myalgias. positive for muscle weakness, no gait dysfunction, no frequent falls. No back pain. No neck pain. Integumentary: Noted wounds, chronic to bilateral lower legs which are healing nicely and decubitus sacrum. No rash or pruritus. No unusual bruising. No change in hair or nails. Neurologic: No aphasia. No facial droop. Noted change in mentation. No head injury. No headache. No paralysis. No paresthesia. Psychiatric: No depression. No anxiety. No mood swings. Endocrine: No abnormal blood sugars. PAST MEDICAL HISTORY 1. Rheumatoid arthritis. 2. Hypothyroidism. 3. Chronic kidney disease stage 2. 4. Fibromyalgia. 5. Anemia of chronic disease. 6. PUD due to antral ulcer bleeding requiring blood transfusion. 7. MRSA infection. 8. Chronic decub ulcers in both legs and sacral area. 9. PAD. 10. DVT. PAST SURGICAL HISTORY 1. Appendectomy. 2. Tonsillectomy. 3. Cholecystectomy. 4. Left foot wound debridement. 5. Nodule removed from thyroid. 6. Sinus surgery. 7. Surgical excision and debridement of sacrum with wound VAC placement 08/05/15 followed by Flap surgery done developed complications with revision. 8. Right lower extremity wound debridement SOCIAL HISTORY Patient is a lifelong nonsmoker, no alcohol abuse, she resides at [facility]. FAMILY HISTORY Mother has history of skin cancer. Father has history of leukemia and at age 72 from a liver problem also with history of rheumatoid arthritis. PHYSICAL EXAMINATION Gen: This is is a morbidly obese 71-year-old white female. She is resting in bed. She appears to be comfortable. HEENT: Head is atraumatic, normocephalic. Pupils equal, round. Sclerae is anicteric. NECK: Supple. No JVD. No lymphadenopathy. No thyromegaly. LUNGS: Decreased breath sounds at the bases, few rhonchi, no wheezes, no chest wall tenderness, no intercostal retractions. HEART: First heart sound is depressed, second heart sound is normal, there is systolic murmur 2/6 located in the left sternal border. ABDOMEN: Soft. Bowel sounds are present. No masses. No tenderness. EXTREMITIES: +1 pedal edema. No calf tenderness. Wound to the coccyx area, and a small 1 to the back of the left leg NEUROLOGICAL: Patient is awake, alert and oriented3, cranial nerves II-12 appear to be grossly intact, muscle power 3 out of 5 in upper extremities and 1 out of 5 in bilateral lower extremities ASSESSMENT AND PLAN 1. Infected decubitus ulcer in the sacral area stage 4 with MRSA . Culture was done as an outpatient, continue IV antibiotic with vancomycin pharmacy to dose its peak and trough, and Azactam 1 g IV piggyback every 8 hours, infectious disease consultation, blood cultures, IV fluid, start Hydrocortisone 100 mg IVP q 8 hours 2. Transient hypotension likely related to SIRS. Continue patient on vancomycin, continue IV fluid, continue Azactam, follow-up with the patient. 3. UTI with sepsis. we will check urine cultures, blood cultures, continue with Azactam 1 Gr IVPB Q 8 hours, consult ID, change Charles catheter. 4. Possible GI bleed. start Protonix 40 mg IVP Q 12 hours and consult , check CBC in AM. 5. Rheumatoid arthritis with chronic pain, significant deformities, wheelchair bound. Hold fentanyl patch 25 g per hour every 72 hours, [place] 10 one every 8 hours as needed and 1 daily. 6. Anemia of chronic illness. Continue ferrous sulfate 325 mg twice daily. 7. Hypothyroidism. Continue levothyroxine 200 g daily. 8. Peripheral neuropathy. Continue patient on Lyrica 100 mg orally twice every day. 9. Chronic Charles catheter. Due to nonhealing decubitus ulcers. 10. DVT prophylaxis. We will maintain the patient on Heparin 5000 units Sc q 12hours 11. GI prophylaxis. Continue Protonix 40 mg IVP Q 12 Hours 12. Admit to inpatient. Estimated length of stay 2 midnights. 13. Patient is full code. Past Medical History Past Medical History: Deep Vein Thrombosis (DVT), Fibromyalgia, GI Bleed, Hypertension, Renal Disease, Rheumatoid Arthritis (RA), Skin Disorder, Thyroid Disorder Additional Past Medical History / Comment(s): Hx bleeding stomach ulcer. CKD, stage II; "Leaky bladder," "poor circulation," current Wound rt buttock, with wound vac, wound left lower leg, Hx Rt hip fx, no surg. 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 Nodule exc from thyroid. Sinus surgery. surgical excision, debridment of sacrum w/ wound VAC placement on 08/05/15 and sx done(flap), developed pin hole leak - had 2nd sx to repair. Debridement wound care to RLE wound on 08/21/15. Past Anesthesia/Blood Transfusion Reactions: No Reported Reaction Additional Past Anesthesia/Blood Transfusion Reaction / Comment(s): Pt has received blood in past without reaction. Past Psychological History: No Psychological Hx Reported Smoking Status: Never smoker Past Alcohol Use History: None Reported Past Drug Use History: None Reported - Past Family History Mother Family Medical History: AFIB, Cancer Additional Family Medical History / Comment(s): skin cancer Father Family Medical History: Cancer, Liver Disease, Rheumatoid Arthritis (RA) Additional Family Medical History / Comment(s): Leukemia. at age 72 of liver problem. Medications and Allergies Home Medications Medication Instructions Recorded Confirmed Type Ferrous Sulfate [Feosol] 325 mg PO BID@0800,1700 09/03/19 09/29/21 History Leflunomide [Arava] 20 mg PO DAILY@0800 10/10/19 09/29/21 History Ascorbic Acid [Vitamin C] 500 mg PO DAILY@0800 01/15/21 09/29/21 History Lactobacillus Acidophilus 1 cap PO DAILY@0800 01/15/21 09/29/21 History [Acidophilus Probiotic] Loratadine [Claritin] 10 mg PO DAILY@0800 01/15/21 09/29/21 History Ondansetron [Zofran] 4 mg PO Q6H PRN 01/15/21 09/29/21 History Potassium Chloride [Klor-Con 20] 20 meq PO BID@0800,1700 01/15/21 09/29/21 History bisacodyL [Dulcolax] 10 mg RECTAL DAILY PRN 01/15/21 09/29/21 History Magnesium Hydroxide [Milk of 7,200 mg PO DAILY PRN 01/28/21 09/29/21 History Magnesia Concentrate] Sucralfate [Carafate] 1 gm PO TID@0600,1100,1630 01/28/21 09/29/21 History Furosemide [Lasix] 40 mg PO DAILY@0800 02/26/21 09/29/21 History HYDROcodone/APAP 10-325MG [[place] 1 tab PO DAILY@0800 #3 tab 03/03/21 09/29/21 Rx 10-325] HYDROcodone/APAP 10-325MG [[place] 1 tab PO Q8H PRN #9 tab 03/03/21 09/29/21 Rx 10-325] Pregabalin [Lyrica] 100 mg PO BID@0800,1700 #6 cap 03/03/21 09/29/21 Rx Acetaminophen Tab [Tylenol] 650 mg PO Q4H PRN 09/29/21 09/29/21 History Albuterol Nebulized [Ventolin 2.5 mg INHALATION RT-TID PRN 09/29/21 09/29/21 History Nebulized] Levothyroxine Sodium [Synthroid] 75 mcg PO DAILY@0600 09/29/21 09/29/21 History Lidocaine [Lidocaine 5% Rectal 1 applic TOPICAL DIRECTED PRN 09/29/21 09/29/21 History Cream] Metoprolol Tartrate [Lopressor] 25 mg PO BID@0800,1700 09/29/21 09/29/21 History Na Phos,M-B/Na Phos,Di-Ba [Fleet 133 ml RECTAL DAILY PRN 09/29/21 09/29/21 History Adult] predniSONE 7 mg PO DAILY@0800 09/29/21 09/29/21 History Allergies Allergy/AdvReac Type Severity Reaction Status Date / Time cefepime Allergy Rash/Hives Verified 09/29/21 08:11 ceftriaxone [From Rocephin] Allergy Rash/Hives Verified 09/29/21 08:11 meropenem Allergy Unknown Verified 09/29/21 08:11 Penicillins Allergy Rash/Hives Verified 09/29/21 08:11 POSITIVE TB REACTOR Allergy Unknown Uncoded 02/26/21 07:00 Physical Exam Vitals: Vital Signs Temp Pulse Resp BP Pulse Ox 09/29/21 09:34 20 129/84 90 L 09/29/21 09:00 74 20 97/60 91 L 09/29/21 08:28 96/60 09/29/21 07:21 81 18 109/48 97 09/29/21 06:44 98.2 F 93 18 124/93 97 Intake and Output 09/28/21 09/29/21 09/29/21 22:59 06:59 14:59 Other: Weight 122.47 kg Results CBC & Chem 7: 09/29/21 07:19 09/29/21 07:19 Labs: Abnormal Lab Results - Last 24 Hours (Table) 09/29/21 09/29/21 09/29/21 Range/Units 07:19 07:19 07:19 Hct 47.7 H (34.0-46.0) % MCHC 29.9 L (31.0-37.0) g/dL RDW 16.2 H (11.5-15.5) % Sodium 135 L (137-145) mmol/L Chloride 95 L (98-107) mmol/L Carbon Dioxide 34 H (22-30) mmol/L BUN 73 H (7-17) mg/dL Creatinine 1.21 H (0.52-1.04) mg/dL Glucose 144 H (74-99) mg/dL Magnesium 2.6 H (1.6-2.3) mg/dL AST 38 H (14-36) U/L ALT 40 H (4-34) U/L Alkaline Phosphatase 157 H (38-126) U/L Troponin I (0.000-0.034) ng/mL Urine Appearance Cloudy H (Clear) Urine pH 8.5 H (5.0-8.0) Urine Protein 3+ H (Negative) Ur Leukocyte Esterase Large H (Negative) Triple Phos Crystals Rare H (None) /hpf Amorphous Sediment Occasional H (None) /hpf Urine Bacteria Rare H (None) /hpf Urine Mucus Rare H (None) /hpf 09/29/21 Range/Units 07:19 Hct (34.0-46.0) % MCHC (31.0-37.0) g/dL RDW (11.5-15.5) % Sodium (137-145) mmol/L Chloride (98-107) mmol/L Carbon Dioxide (22-30) mmol/L BUN (7-17) mg/dL Creatinine (0.52-1.04) mg/dL Glucose (74-99) mg/dL Magnesium (1.6-2.3) mg/dL AST (14-36) U/L ALT (4-34) U/L Alkaline Phosphatase (38-126) U/L Troponin I 0.060 H* (0.000-0.034) ng/mL Urine Appearance (Clear) Urine pH (5.0-8.0) Urine Protein (Negative) Ur Leukocyte Esterase (Negative) Triple Phos Crystals (None) /hpf Amorphous Sediment (None) /hpf Urine Bacteria (None) /hpf Urine Mucus (None) /hpf
[2021-09-29] MEDS: AZTREONAM 1 GM in SODIUM CHLORIDE 0.9% 50 ML IVPB SCH (18:33)
[2021-09-29 18:36] LABS: Anisocytosis Slight; Basophils # (A) 0.1 k/uL (0-0.2); Basophils % (A) 1 %; Eosinophils # (A) 0.4 k/uL (0-0.7); Eosinophils % (A) 3 %; HCT 47.9 % (34.0-46.0); HGB 14.2 gm/dL (11.4-16.0); Hypochromasia Marked; Lymphocytes # (A) 1.1 k/uL (1.0-4.8); Lymphocytes % (A) 9 %; MCH 30.2 pg (25.0-35.0); MCHC 29.5 g/dL (31.0-37.0); MCV 102.2 fL (80.0-100.0); Macrocytosis Moderate; Mean Platelet Volume 9.2; Monocytes % (A) 8 %; Neutrophils # (A) 9.7 k/uL (1.3-7.7); Neutrophils % (A) 77 %; Platelet Count 244 k/uL (150-450); RBC 4.69 m/uL (3.80-5.40); RDW 16.2 % (11.5-15.5); WBC 12.6 k/uL (3.8-10.6)
[2021-09-29] MEDS: HYDROCORTISONE SUCCINATE 100 MG/2 ML VIAL IV SCH (19:49)
[2021-09-29] MEDS ORDERED: HEPARIN SODIUM,PORCINE/PF 5,000 UNIT/0.5 ML SYRINGE SQ SCH (21:00)
--- NOTE | 2021-09-29 23:22 | P.CONS ---
History of Present Illness - Reason for Consult Consult date: 09/29/21 Infected sacral pressure ulcer Requesting physician: Cierra Moyer - Chief Complaint Weakness and lethargy x one day - History of Present Illness Patient is a 71-year-old female with a past medical history significant for a recurrent urinary tract infection with multiple antibiotic allergies patient also have a chronic nonhealing wound to the sacral/right gluteal area as well as bilateral lower extremity wound which seem to have healed patient is a resident of local [facility], with a local wound care provided by Dr. Medina at the [facility] apparently the patient recently did have a cultures obtained from the sacral pressure ulcer which was positive for MRSA patient was noticed to be quite lethargic and having jerking movements she was noticed to be hypertensive and the patient was sent to [facility] ER for further evaluation on arrival to the ER patient was afebrile the patient did have a normal white count with no left shift patient did have elevated BUN and creatinine liver exams are mildly elevated as well as troponin urine has been positive patient was started on Azactam and vancomycin infectious disease was consulted for further management of antibiotic therapy patient was initially very lethargic subsequently she was slightly waking up and was not very clear what was going on with her however were nonspecific denies having any chest pain or shortness with a cough patient denies having any worsening pain to the sacral wound area, patient chest x-ray difficult exclude pneumonia Review of Systems Positive point has been mentioned in the HPI rest of the systems are negative Past Medical History Past Medical History: Deep Vein Thrombosis (DVT), Fibromyalgia, GI Bleed, Renal Disease, Rheumatoid Arthritis (RA), Skin Disorder, Thyroid Disorder, Vascular Disorder Additional Past Medical History / Comment(s): RA/debilitated/chronic pain, neuropathy bilateral hands/feet, IDC/frequent UTIs, UTIs with sepsis, ckd stage II per past medical record but pt's spencer does not recall, chronic anemia, multiple wounds/currrently on R buttock, PVD, past R hip fracture healed on its own, L foot bunion, past bleeding stomach ulcer, spencer states no hx HTN but of hypotension, hypothyroid History of Any Multi-Drug Resistant Organisms: MRSA, Other MDRO, VRE Year Discovered:: 02/01/21 VRE 01/08/21 MRSA MDRO Source:: VRE-Urine MRSA-buttock Past Surgical History: Appendectomy, Cholecystectomy, Tonsillectomy Additional Past Surgical History / Comment(s): Lt foot wound debridement. Nodule exc from thyroid. Sinus surgery. surgical excision, debridment of sacrum w/ wound VAC placement on 08/05/15 and sx done(flap), developed pin hole leak - had 2nd sx to repair. Debridement wound care to RLE wound on 08/21/15. Past Anesthesia/Blood Transfusion Reactions: No Reported Reaction Additional Past Anesthesia/Blood Transfusion Reaction / Comm: Pt has received blood in past without reaction. Smoking Status: Never smoker - Past Family History Mother Family Medical History: AFIB, Cancer Additional Family Medical History / Comment(s): skin cancer Father Family Medical History: Cancer, Liver Disease, Rheumatoid Arthritis (RA) Additional Family Medical History / Comment(s): Leukemia. at age 72 of liver problem. Medications and Allergies Home Medications Medication Instructions Recorded Confirmed Type Ferrous Sulfate [Feosol] 325 mg PO BID@0800,1700 09/03/19 09/29/21 History Leflunomide [Arava] 20 mg PO DAILY@0800 10/10/19 09/29/21 History Ascorbic Acid [Vitamin C] 500 mg PO DAILY@0800 01/15/21 09/29/21 History Lactobacillus Acidophilus 1 cap PO DAILY@0800 01/15/21 09/29/21 History [Acidophilus Probiotic] Loratadine [Claritin] 10 mg PO DAILY@0800 01/15/21 09/29/21 History Ondansetron [Zofran] 4 mg PO Q6H PRN 01/15/21 09/29/21 History Potassium Chloride [Klor-Con 20] 20 meq PO BID@0800,1700 01/15/21 09/29/21 History bisacodyL [Dulcolax] 10 mg RECTAL DAILY PRN 01/15/21 09/29/21 History Magnesium Hydroxide [Milk of 7,200 mg PO DAILY PRN 01/28/21 09/29/21 History Magnesia Concentrate] Sucralfate [Carafate] 1 gm PO TID@0600,1100,1630 01/28/21 09/29/21 History Furosemide [Lasix] 40 mg PO DAILY@0800 02/26/21 09/29/21 History HYDROcodone/APAP 10-325MG [[place] 1 tab PO DAILY@0800 #3 tab 03/03/21 09/29/21 Rx 10-325] HYDROcodone/APAP 10-325MG [[place] 1 tab PO Q8H PRN #9 tab 03/03/21 09/29/21 Rx 10-325] Pregabalin [Lyrica] 100 mg PO BID@0800,1700 #6 cap 03/03/21 09/29/21 Rx Acetaminophen Tab [Tylenol] 650 mg PO Q4H PRN 09/29/21 09/29/21 History Albuterol Nebulized [Ventolin 2.5 mg INHALATION RT-TID PRN 09/29/21 09/29/21 History Nebulized] Levothyroxine Sodium [Synthroid] 75 mcg PO DAILY@0600 09/29/21 09/29/21 History Lidocaine [Lidocaine 5% Rectal 1 applic TOPICAL DIRECTED PRN 09/29/21 09/29/21 History Cream] Metoprolol Tartrate [Lopressor] 25 mg PO BID@0800,1700 09/29/21 09/29/21 History Na Phos,M-B/Na Phos,Di-Ba [Fleet 133 ml RECTAL DAILY PRN 09/29/21 09/29/21 Hi story Adult] predniSONE 7 mg PO DAILY@0800 09/29/21 09/29/21 History Allergies Allergy/AdvReac Type Severity Reaction Status Date / Time cefepime Allergy Rash/Hives Verified 09/29/21 08:11 ceftriaxone [From Rocephin] Allergy Rash/Hives Verified 09/29/21 08:11 meropenem Allergy Unknown Verified 09/29/21 08:11 Penicillins Allergy Rash/Hives Verified 09/29/21 08:11 POSITIVE TB REACTOR Allergy Unknown Uncoded 02/26/21 07:00 Physical Exam Vitals: Vital Signs Temp Pulse Pulse Resp BP BP Pulse Ox 09/29/21 11:45 97.7 F 83 18 110/70 99 09/29/21 11:10 79 18 96/54 92 L 09/29/21 09:34 20 129/84 90 L 09/29/21 09:00 74 20 97/60 91 L 09/29/21 08:28 96/60 09/29/21 07:21 81 18 109/48 97 09/29/21 06:44 98.2 F 93 18 124/93 97 Intake and Output 09/28/21 09/29/21 09/29/21 22:59 06:59 14:59 Other: Weight 122.47 kg 122.47 kg GENERAL DESCRIPTION: An elderly female male lying in bed, no distress. No tachypnea or accessory muscle of respiration use. HEENT: Shows Pallor , no scleral icterus. Oral mucous membrane is dry. No pharyngeal erythema or thrush NECK: Trachea central, no thyromegaly. LUNGS: Unlabored breathing. Decreased breath sound at the base. No wheeze or crackle. HEART: S1, S2, regular rate and rhythm. No loud murmur ABDOMEN: Soft, no tenderness , guarding or rigidity, no organomegaly EXTREMITIES: Lower extremity wounds are currently healed with no redness or any drainage. SKIN: No rash, no masses palpable. Patient did have a stage III sacral pressure ulcer wound base is no significant slough tissue but was not palpable no surrounding redness NEUROLOGICAL: The patient is lethargic but arousable mood and affect is normal Results CBC & Chem 7: 09/29/21 18:16 09/29/21 07:19 Labs: Abnormal Lab Results - Last 24 Hours (Table) 09/29/21 09/29/21 09/29/21 Range/Units 07:19 07:19 07:19 Hct 47.7 H (34.0-46.0) % MCHC 29.9 L (31.0-37.0) g/dL RDW 16.2 H (11.5-15.5) % Sodium 135 L (137-145) mmol/L Chloride 95 L (98-107) mmol/L Carbon Dioxide 34 H (22-30) mmol/L BUN 73 H (7-17) mg/dL Creatinine 1.21 H (0.52-1.04) mg/dL Glucose 144 H (74-99) mg/dL Magnesium 2.6 H (1.6-2.3) mg/dL AST 38 H (14-36) U/L ALT 40 H (4-34) U/L Alkaline Phosphatase 157 H (38-126) U/L Troponin I (0.000-0.034) ng/mL Urine Appearance Cloudy H (Clear) Urine pH 8.5 H (5.0-8.0) Urine Protein 3+ H (Negative) Ur Leukocyte Esterase Large H (Negative) Triple Phos Crystals Rare H (None) /hpf Amorphous Sediment Occasional H (None) /hpf Urine Bacteria Rare H (None) /hpf Urine Mucus Rare H (None) /hpf 09/29/ Range/Units 07:19 Hct (34.0-46.0) % MCHC (31.0-37.0) g/dL RDW (11.5-15.5) % Sodium (137-145) mmol/L Chloride (98-107) mmol/L Carbon Dioxide (22-30) mmol/L BUN (7-17) mg/dL Creatinine (0.52-1.04) mg/dL Glucose (74-99) mg/dL Magnesium (1.6-2.3) mg/dL AST (14-36) U/L ALT (4-34) U/L Alkaline Phosphatase (38-126) U/L Troponin I 0.060 H* (0.000-0.034) ng/mL Urine Appearance (Clear) Urine pH (5.0-8.0) Urine Protein (Negative) Ur Leukocyte Esterase (Negative) Triple Phos Crystals (None) /hpf Amorphous Sediment (None) /hpf Urine Bacteria (None) /hpf Urine Mucus (None) /hpf Assessment and Plan (1) UTI (urinary tract infection) Current Visit: Yes Status: Acute Code(s): N39.0 - URINARY TRACT INFECTION, SITE NOT SPECIFIED SNOMED Code(s): 89666954 (2) Allergy to multiple antibiotics Current Visit: Yes Status: Acute Code(s): Z88.1 - ALLERGY STATUS TO OTHER ANTIBIOTIC AGENTS SNOMED Code(s): 357206529 (3) Wound infection Current Visit: Yes Status: Acute Code(s): T14.8 - OTHER INJURY OF UNSPECIFIED BODY REGION * DO NOT USE * SNOMED Code(s): 50662619 Plan: 1patient presented to hospital with weakness lethargy hypotension in this patient who recently did have a positive culture from her sacral pressure ulcer with MRSA however the ulcer itself does not look infected clinically with no significant slough tissue surrounding redness or any drainage will question of possible colonization underlying infection return excluded. 2patient also have a positive UA and a history of recurrent UTI could be the likely source of her infection. 3patient with multiple antibiotic allergies that would limit the number of ant ibiotics safe to use. 4we will obtain CRP and sed rate. 5vancomycin pharmacy to dose target trough of 15 while watching kidney function and vancomycin trough closely and Azactam will provide adequate antibiotic coverage We will follow on clinical condition and cultures to further adjust medication if needed Thank you for this consultation will follow this patient along with you Time with Patient: Greater than 30
[2021-09-29 23:30] LABS: Glucose,Whole Blood 180 mg/dL (75-99)
[2021-09-29 23:30] LABS: Glucose,Whole Blood 184 mg/dL (75-99)
[2021-09-29 23:49] LABS: ABG Base Excess 2.9 mmol/L; ABG HCO3 33 mmol/L (21-25); ABG Oxygen Saturation 84.8 % (94-97); ABG PO2 61 mmHg (83-108); ABG TCO2 37 mmol/L (19-24); Allen Test Performed? Yes
[2021-09-30 00:18] LABS: ABG PH 7.07 (7.35-7.45)
[2021-09-30 00:19] LABS: ABG PCO2 113 mmHg (35-45)
[2021-09-30 00:45] LABS: Basophils # (A) 0.1 k/uL (0-0.2); Basophils % (A) 1 %; Eosinophils # (A) 0.2 k/uL (0-0.7); Eosinophils % (A) 1 %; HCT 46.8 % (34.0-46.0); HGB 13.6 gm/dL (11.4-16.0); Hypochromasia Marked; Lymphocytes # (A) 0.6 k/uL (1.0-4.8); Lymphocytes % (A) 4 %; MCH 29.9 pg (25.0-35.0); MCHC 29.1 g/dL (31.0-37.0); MCV 102.7 fL (80.0-100.0); Macrocytosis Moderate; Mean Platelet Volume 9.9; Monocytes # (A) 0.6 k/uL (0-1.0); Monocytes % (A) 4 %; Neutrophils # (A) 14.4 k/uL (1.3-7.7); Neutrophils % (A) 90 %; Platelet Count 251 k/uL (150-450); RBC 4.56 m/uL (3.80-5.40); RDW 15.9 % (11.5-15.5)
[2021-09-30 00:56] LABS: ALT 56 U/L (4-34); AST 64 U/L (14-36); African American GFR (CKD) 50 (>60 ml/min/1.73 sqM); Albumin 3.3 g/dL (3.5-5.0); Albumin/Globulin Ratio 1.2; Alkaline Phosphatase 167 U/L (38-126); Anion Gap 5 mmol/L; Blood Urea Nitrogen 68 mg/dL (7-17); Calcium 9.1 mg/dL (8.4-10.2); Carbon Dioxide 33 mmol/L (22-30); Chloride 98 mmol/L (98-107); Globulin 2.8 g/dL; Glucose 189 mg/dL (74-99); Non-African American GFR(CKD) 43 (>60 ml/min/1.73 sqM); Potassium 5.2 mmol/L (3.5-5.1); Sodium 136 mmol/L (137-145); Total Bilirubin 0.8 mg/dL (0.2-1.3); Total Protein 6.1 g/dL (6.3-8.2)
[2021-09-30] MEDS ORDERED: LORazepam 2 MG/ML INJ IV PRN (02:30)
[2021-09-30] MEDS ORDERED: MORPHINE SULFATE (100 MG/2 ML) 100 MG in SODIUM CHLORIDE 0.9% 100 ML IV SCH (02:30)
[2021-09-30] MEDS ORDERED: ATROPINE OPHTH SOLN 1% 5ML BTL SUBLINGUAL PRN (02:30)
[2021-09-30] MEDS ORDERED: LEVOTHYROXINE 75 MCG TAB PO SCH (06:00)
[2021-09-30 06:28] VITALS: TEMP 97.3
[2021-09-30 07:12] VITALS: BP 133/77
[2021-09-30] MEDS ORDERED: LORATADINE 10 MG TAB PO SCH (08:00)
[2021-09-30] MEDS ORDERED: HYDROcodone/APAP 10-325MG 1 EACH TAB PO SCH (08:00)
[2021-09-30] MEDS ORDERED: ASCORBIC ACID 500 MG TAB PO SCH (08:00)
[2021-09-30] MEDS ORDERED: FUROSEMIDE 40 MG TAB PO SCH (08:00)
[2021-09-30] MEDS ORDERED: LACTOBACILLUS ACIDOPH & BULGAR 1 EACH PACKET PO SCH (08:00)
[2021-09-30] MEDS ORDERED: LEFLUNOMIDE 20 MG TAB PO SCH (08:00)
[2021-09-30] MEDS ORDERED: predniSONE 1 MG TAB PO SCH (08:00)
[2021-09-30] MEDS ORDERED: VANCOMYCIN 2,250 MG in SODIUM CHLORIDE 0.9% 500 ML 500 ML IVPB SCH (09:00)
[2021-09-30 13:59] VITALS: BMI 46.3
[2021-09-30 14:12] VITALS: PULSE 75
--- NOTE | 2021-09-30 14:12 | CDI ---
Documentation Clarification Form Date: 09/30/2021 01:54:32 PM From: Magalie Mei RN, CCDS Admit Date: 09/29/2021 09:24:00 AM Patient Name: Chyna Bueno Visit Number: [id number] Discharge Date: ATTENTION: The Clinical Documentation Specialists (CDI) and [facility] Coding Staff appreciate your assistance in clarifying documentation. Please respond to the clarification below the line at the bottom and electronically sign. The CDI & [facility] Coding staff will review the response and follow-up if needed. Please note: Queries are made part of the Legal Health Record. If you have any questions, please contact the author of this message via ITS. Dr. Cierra Moyer UTI is documented in the H/P and subsequent progress notes. You have also indicated this patient has a chronic indwelling Charles catheter. Additional clarification regarding this diagnosis is requested. History/Risk Factors: Renal Disease Rheumatoid Arthritis/debilitated, chronic pain Neuropathy bilateral, Stage IV sacral decubitus ulcer, MRSA infection Clinical Indicators: 71-year-old female present with nonresponsive, lethargic. She has a Charles catheter and was ruled in for UTI. 09/29 Vital Signs: (09:00) 97/60 74 20 91 % 09/29 WBC: 8.3 BUN 73, CR 1.21 09/29 Urinalysis: Cloudy, Ur Leukocyte Esterase Large; 09/29 Urine Culture: Pending Treatment Vancomycin HCL 2,250 MLS IVPB Q 24 HRS (Pharm to dose) 09/30 Change Charles catheter Please clarify if there is an additional diagnosis associated with the UTI: [ ] UTI with Sepsis secondary to chronic Charles catheter, POA [ ] Sepsis due to UTI, POA [ X] Other, please specify ___MRSA Decub Infection [ ] Unable to determine (Template Last Revised: September 2020) MTDD
[2021-09-30] MEDS: SODIUM CHLORIDE 0.9% 1,000 ML IV SCH (16:25)
[2021-09-30] MEDS: SCOPOLAMINE 1.5MG/72HR PATCH TRANSDERM SCH ×2 (16:25→22:56)
[2021-09-30] MEDS: AZTREONAM 1 GM in SODIUM CHLORIDE 0.9% 50 ML IVPB SCH (16:50)
[2021-09-30] MEDS: HYDROCORTISONE SUCCINATE 100 MG/2 ML VIAL IV SCH (16:50)
--- NOTE | 2021-09-30 18:38 | P.PN ---
Subjective Progress Note Date: 09/30/21 HISTORY OF PRESENT ILLNESS This is a 71-year-old female patient of [facility] with a previous medical history significant for rheumatoid arthritis with significant deformities, currently wheelchair bound/bedbound, nonhealing wounds for bilateral lower extremities as well as stage IV sacral decubitus ulcer for which she has been treated with a wound VAC, she has been following with the wound healing Center at [facility] with Dr. Medina at [facility] on a weekly basis. Patient has been on multiple courses of IV antibiotics and developed ALLERGIC reaction to cefepime which is now considered an ALLERGY. Her most recent hospitalization was about a few weeks ago at [facility] when she was admitted to the hospital for what appears to be an infected decubitus ulcer and urinary tract infection she was treated with IV antibiotic and she was sent back to [facility] patient also recently developed to have a significant acute diastolic heart failure for which she was placed on IV Lasix as well as metolazone at the half-way, and she has recovered very well and she had lost quite a bit of weight, patient did have a recent culture of her decubitus ulcer and she was found to have a MRSA I received a call from the nursing staff at [facility] today stating that the patient is quite lethargic having jerking movements and she appeared to be septic and hypotensive she was referred to the ER at this time for evaluation surprisingly her lactic acid came back normal white count were normal she appears to have a bit dehydration she was started on IV fluid resuscitation, and she was admitted to the hospital for evaluation and treatment by infectious disease, cultures were done as an outpatient showed MRSA she was started on vancomycin as well as Azactam infectious disease consultation was obtained. 09/30: Patient became unresponsive yesterday and she was transferred to the intensive care unit, because of hypotension as well as hypoxemia, by the time she got to the ICU patient became quite and stable, family made the decision to make her DO NOT RESUSCITATE and she was placed on comfort measures, she was started on morphine drip, and patient ever want to be resuscitated Charles therefore her wishes were respected and the family were counseled at the bedside, is eminent. REVIEW OF SYSTEMS Constitutional: No fever, no chills, no night sweats. posiytive for weight change. Reported weakness, reported fatigue reported lethargy. Reported daytime sleepiness. HEENT: No headache. No blurred vision or double vision, no loss of vision. No loss of Hearing, no ringing in the ears, reports dizziness. No nasal drainage or congestion. No epistaxis. No sore throat. Lungs: No shortness of breath, cough, no sputum production. No wheezing. Cardiovascular: No chest pain, positive for lower extremity edema. No p alpitations. No paroxysmal nocturnal dyspnea. No orthopnea. No lightheadedness reports dizziness. No syncopal episodes. Abdominal: No abdominal pain. No nausea, vomiting. No diarrhea. No consti pation. No bloody or tarry stools.. Reported loss of appetite. Genitourinary: No dysuria, increased frequency, urgency. No urinary retention. Musculoskeletal: No myalgias. positive for muscle weakness, no gait dysfunction, no frequent falls. No back pain. No neck pain. Integumentary: Noted wounds, chronic to bilateral lower legs which are healing nicely and decubitus sacrum. No rash or pruritus. No unusual bruising. No change in hair or nails. Neurologic: No aphasia. No facial droop. Noted change in mentation. No head injury. No headache. No paralysis. No paresthesia. Psychiatric: No depression. No anxiety. No mood swings. Endocrine: No abnormal blood sugars. PHYSICAL EXAMINATION Gen: This is is a morbidly obese 71-year-old white female. She is resting in bed. She appears to be comfortable. HEENT: Head is atraumatic, normocephalic. Pupils equal, round. Sclerae is anicteric. NECK: Supple. No JVD. No lymphadenopathy. No thyromegaly. LUNGS: Decreased breath sounds at the bases, few rhonchi, no wheezes, no chest wall tenderness, no intercostal retractions. HEART: First heart sound is depressed, second heart sound is normal, there is systolic murmur 2/6 located in the left sternal border. ABDOMEN: Soft. Bowel sounds are present. No masses. No tenderness. EXTREMITIES: +1 pedal edema. No calf tenderness. Wound to the coccyx area, and a small 1 to the back of the left leg NEUROLOGICAL: Patient is awake, alert and oriented3, cranial nerves II-12 appear to be grossly intact, muscle power 3 out of 5 in upper extremities and 1 out of 5 in bilateral lower extremities ASSESSMENT AND PLAN 1. Infected decubitus ulcer in the sacral area stage 4 with MRSA . 2. Transient hypotension likely related to SIRS. 3. UTI with sepsis. 4. Possible GI bleed. 5. Rheumatoid arthritis with chronic pain, 6. Anemia of chronic illness. 7. Hypothyroidism. 8. Peripheral neuropathy. 9. Chronic Charles catheter. Objective - Vital Signs Vital signs: Vital Signs Temp 97.3 F L 09/30/21 06:00 Pulse 76 09/30/21 08:00 Resp 10 L 09/30/21 08:00 BP 133/77 09/30/21 07:00 Pulse Ox 82 L 09/30/21 08:00 Intake & Output 09/29/21 09/30/21 09/30/21 18:59 06:59 18:59 Intake Total 1550 150 Output Total 300 125 Balance 1250 25 Weight 122.47 kg Intake: IV 150 Sodium Chloride 0.9% 1, 150 000 ml @ 75 mls/hr IV . [id number] [facility] Rx#:[id number] Intake, IV Titration 1050 Amount Aztreonam 1 gm In Sodium 50 Chloride 0.9% 50 ml @ 16. 67 mls/hr IVPB Q8H [facility] Rx #:[id number] Sodium Chloride 0.9% 500 500 ml 500 ml @ 500 mls/hr IV .Q1H ONE Rx#:[id number] Vancomycin 2,250 mg In 500 Sodium Chloride 0.9% 500 ml 500 ml @ 167 mls/hr IVPB Q24HR [facility] Rx#: [id number] Oral 500 Output: Urine 300 125 Other: Voiding Method Indwelling Catheter Indwelling Catheter Indwelling Catheter - Labs CBC & Chem 7: 09/30/21 00:05 09/30/21 00:05 Labs: Abnormal Lab Results - Last 24 Hours (Table) 09/29/21 09/29/21 09/29/21 Range/Units 12:49 18:16 23:18 WBC 12.6 H (3.8-10.6) k/uL Hct 47.9 H (34.0-46.0) % MCV 102.2 H (80.0-100.0) fL MCHC 29.5 L (31.0-37.0) g/dL RDW 16.2 H (11.5-15.5) % Neutrophils # 9.7 H (1.3-7.7) k/uL Lymphocytes # (1.0-4.8) k/uL ABG pH (7.35-7.45) ABG pCO2 (35-45) mmHg ABG pO2 (83-108) mmHg ABG HCO3 (21-25) mmol/L ABG Total CO2 (19-24) mmol/L ABG O2 Saturation (94-97) % Sodium (137-145) mmol/L Potassium (3.5-5.1) mmol/L Carbon Dioxide (22-30) mmol/L BUN (7-17) mg/dL Creatinine (0.52-1.04) mg/dL Glucose (74-99) mg/dL POC Glucose (mg/dL) 180 H (75-99) mg/dL AST (14-36) U/L ALT (4-34) U/L Alkaline Phosphatase (38-126) U/L Total Protein (6.3-8.2) g/dL Albumin (3.5-5.0) g/dL Urine Appearance Cloudy H (Clear) Urine Protein 2+ H (Negative) Urine Blood Small H (Negative) Ur Leukocyte Esterase Large H (Negative) Urine RBC 18 H (0-5) /hpf Urine WBC 104 H (0-5) /hpf Urine WBC Clumps Many H (None) /hpf Urine Bacteria Few H (None) /hpf Hyaline Casts 6 H (0-2) /lpf Urine Mucus Rare H (None) /hpf 09/29/21 09/29/21 09/30/21 Range/Units 23:28 23:45 00:05 WBC 16.0 H (3.8-10.6) k/uL Hct 46.8 H (34.0-46.0) % MCV 102.7 H (80.0-100.0) fL MCHC 29.1 L (31.0-37.0) g/dL RDW 15.9 H (11.5-15.5) % Neutrophils # 14.4 H (1.3-7.7) k/uL Lymphocytes # 0.6 L (1.0-4.8) k/uL ABG pH 7.07 L* (7.35-7.45) ABG pCO2 113 H* (35-45) mmHg ABG pO2 61 L (83-108) mmHg ABG HCO3 33 H (21-25) mmol/L ABG Total CO2 37 H (19-24) mmol/L ABG O2 Saturation 84.8 L (94-97) % Sodium (137-145) mmol/L Potassium (3.5-5.1) mmol/L Carbon Dioxide (22-30) mmol/L BUN (7-17) mg/dL Creatinine (0.52-1.04) mg/dL Glucose (74-99) mg/dL POC Glucose (mg/dL) 184 H (75-99) mg/dL AST (14-36) U/L ALT (4-34) U/L Alkaline Phosphatase (38-126) U/L Total Protein (6.3-8.2) g/dL Albumin (3.5-5.0) g/dL Urine Appearance (Clear) Urine Protein (Negative) Urine Blood (Negative) Ur Leukocyte Esterase (Negative) Urine RBC (0-5) /hpf Urine WBC (0-5) /hpf Urine WBC Clumps (None) /hpf Urine Bacteria (None) /hpf Hyaline Casts (0-2) /lpf Urine Mucus (None) /hpf 09/30/21 Range/Units 00:05 WBC (3.8-10.6) k/uL Hct (34.0-46.0) % MCV (80.0-100.0) fL MCHC (31.0-37.0) g/dL RDW (11.5-15.5) % Neutrophils # (1.3-7.7) k/uL Lymphocytes # (1.0-4.8) k/uL ABG pH (7.35-7.45) ABG pCO2 (35-45) mmHg ABG pO2 (83-108) mmHg ABG HCO3 (21-25) mmol/L ABG Total CO2 (19-24) mmol/L ABG O2 Saturation (94-97) % Sodium 136 L (137-145) mmol/L Potassium 5.2 H (3.5-5.1) mmol/L Carbon Dioxide 33 H (22-30) mmol/L BUN 68 H (7-17) mg/dL Creatinine 1.25 H (0.52-1.04) mg/dL Glucose 189 H (74-99) mg/dL POC Glucose (mg/dL) (75-99) mg/dL AST 64 H (14-36) U/L ALT 56 H (4-34) U/L Alkaline Phosphatase 167 H (38-126) U/L Total Protein 6.1 L (6.3-8.2) g/dL Albumin 3.3 L (3.5-5.0) g/dL Urine Appearance (Clear) Urine Protein (Negative) Urine Blood (Negative) Ur Leukocyte Esterase (Negative) Urine RBC (0-5) /hpf Urine WBC (0-5) /hpf Urine WBC Clumps (None) /hpf Urine Bacteria (None) /hpf Hyaline Casts (0-2) /lpf Urine Mucus (None) /hpf Microbiology - Last 24 Hours (Table) 09/30/21 00:11 Urine Culture - Preliminary Urine,Catheterized 09/29/21 12:49 Urine Culture - Preliminary Urine,Voided
[2021-09-30 19:51] VITALS: RESP 5
--- NOTE | 2021-10-03 10:06 | CDI ---
Documentation Clarification Form Date: 10/03/2021 09:46:08 AM From: Minal Cotton RN, CCDS Email: [email or web address] Admit Date: 09/29/2021 09:24:00 AM Patient Name: Chyna Bueno Visit Number: [id number] Discharge Date: 10/01/2021 03:06:00 AM ATTENTION: The Clinical Documentation Specialists (CDI) and [facility] Coding Staff appreciate your assistance in clarifying documentation. Please respond to the clarification below the line at the bottom and electronically sign. The CDI & [facility] Coding staff will review the response and follow-up if needed. Please note: Queries are made part of the Legal Health Record. If you have any questions, please contact the author of this message via ITS. Dr. Cierra Moyer Your patient had hypoxemia and was to be transferred to the ICU. Based on this information and the findings below, is there an additional diagnosis that is clinically appropriate for this patient? History/Risk Factors: rheumatoid arthritis with significant deformities, currently wheelchair bound/bedbound, nonhealing wounds for bilateral lower extremities as well as stage IV sacral decubitus ulcer. Chronic Charles catheter, admitted with hypotension and sepsis. Clinical Indicators: 09/30: "Patient became unresponsive yesterday and she was transferred to the intensive care unit, because of hypotension as well as hypoxemia, by the time she got to the ICU patient became quite unstable, family made the decision to do not resuscitate and she was placed on comfort measures." 09/30 Vital signs: RR 5, Temp 97.3, BP 83/52 Pulse oximetry: down to 73% on 09/30 09/30 Lung/Breathing assessment: Decreased breath sounds at the bases, few rhonchi 09/29 ABG: pH 7.07, pO2 61, pCO2 113, HCO3 33 Treatment: O2 6LNC - Bipap Breathing tx: Albuterol 2.5mg prn Is there an additional diagnosis that is clinically appropriate for this patient? [ X ] Acute Hypoxic Respiratory Failure (pO2 <60 mm Hg or SpO2 <91% on room air) [ ] Acute Hypercapnic Respiratory Failure (pCO2 >50 and pH <7.35) [ ] Acute Hypoxic and Hypercapnic Respiratory Failure [ ] Other Diagnosis, please specify [ ] Unable to determine (Template Last Revised: September 2020) MTDD
--- NOTE | 2021-10-07 07:38 | P.DS ---
Providers Date of admission: 09/29/21 09:24 Expected date of discharge: 10/01/21 Attending physician: Cierra Moyer Consults: 09/29/21 09:26 Consult Physician Urgent Consulting Provider: Jocelyn Rangel Consult Reason/Comments: Decubitus ulcer, sepsis Do you want consulting provider notified?: Yes 09/29/21 16:40 Consult Physician Urgent Consulting Provider: Meño Doss Consult Reason/Comments: Black tarry stool Do you want consulting provider notified?: Yes Primary care physician: Cierra Moyer [facility] Course: HISTORY OF PRESENT ILLNESS This is a 71-year-old female patient of [facility] with a previous medical history significant for rheumatoid arthritis with significant deformities, currently wheelchair bound/bedbound, nonhealing wounds for bilateral lower extremities as well as stage IV sacral decubitus ulcer for which she has been treated with a wound VAC, she has been following with the wound healing Center at [facility] with Dr. Medina at [facility] on a weekly basis. Patient has been on multiple courses of IV antibiotics and developed ALLERGIC reaction to cefepime which is now considered an ALLERGY. Her most recent hospitalization was about a few weeks ago at [facility] when she was admitted to the hospital for what appears to be an infected decubitus ulcer and urinary tract infection she was treated with IV antibiotic and she was sent back to [facility] patient also recently developed to have a significant acute diastolic heart failure for which she was placed on IV Lasix as well as [facility]olazone [facility], and she has recovered very well and she had lost quite a bit of weight, patient did have a recent culture of her decubitus ulcer and she was found to have a MRSA I received a call from the nursing staff at [facility] today stating that the patient is quite lethargic having jerking movements and she appeared to be septic and hypotensive she was referred to the ER at this time for evaluation surprisingly her lactic acid came back normal white count were normal she appears to have a bit dehydration she was started on IV fluid resuscitation, and she was admitted to the hospital for evaluation and treatment by infectious disease, cultures were done as an outpatient showed MRSA she was started on vancomycin as well as Azactam infectious disease consultation was obtained. 09/30: Patient became unresponsive yesterday and she was transferred to the intensive care unit, because of hypotension as well as hypoxemia, by the time she got to the ICU patient became quite and stable, family made the decision to make her DO NOT RESUSCITATE and she was placed on comfort measures, she was started on morphine drip, and patient ever want to be resuscitated Charles therefore her wishes were respected and the family were counseled at the bedside, is eminent. Patient on the very early hours of 10/01. Please see nursing documentation for details. DISCHARGE DIAGNOSES 1. Infected decubitus ulcer in the sacral area stage 4 with MRSA . 2. Transient hypotension likely related to SIRS. 3. UTI with sepsis. 4. Possible GI bleed. 5. Acute hypoxic respiratory failure. 6. Rheumatoid arthritis with chronic pain, 7. Anemia of chronic illness. 8. Hypothyroidism. 9. Peripheral neuropathy. 10. Chronic Charles catheter. Impression and plan of care have been directed as dictated by the signing physician. Arlene Darnell nurse practitioner acting as scribe for signing physician. Patient Condition at Discharge: Undetermined Plan - Discharge Summary Discharge Rx Participant: No New Discharge Prescriptions: No Action Ferrous Sulfate [Feosol] 325 mg PO BID@0800,1700 Leflunomide [Arava] 20 mg PO DAILY@0800 Ondansetron [Zofran] 4 mg PO Q6H PRN PRN Reason: Nausea Furosemide [Lasix] 40 mg PO DAILY@0800 Pregabalin [Lyrica] 100 mg PO BID@0800,1700 #6 cap Albuterol Nebulized [Ventolin Nebulized] 2.5 mg INHALATION RT-TID PRN PRN Reason: Shortness Of Breath Levothyroxine Sodium [Synthroid] 75 mcg PO DAILY@0600 Lidocaine [Lidocaine 5% Rectal Cream] 1 applic TOPICAL DIRECTED PRN PRN Reason: Pain Na Phos,M-B/Na Phos,Di-Ba [Fleet Adult] 133 ml RECTAL DAILY PRN PRN Reason: Constipation Potassium Chloride [Klor-Con 20] 20 meq PO BID@0800,1700 Lactobacillus Acidophilus [Acidophilus Probiotic] 1 cap PO DAILY@0800 Ascorbic Acid [Vitamin C] 500 mg PO DAILY@0800 bisacodyL [Dulcolax] 10 mg RECTAL DAILY PRN PRN Reason: Constipation Loratadine [Claritin] 10 mg PO DAILY@0800 Magnesium Hydroxide [Milk of Magnesia Concentrate] 7,200 mg PO DAILY PRN PRN Reason: Constipation Sucralfate [Carafate] 1 gm PO TID@0600,1100,1630 HYDROcodone/APAP 10-325MG [[place] 10-325] 1 tab PO DAILY@0800 #3 tab HYDROcodone/APAP 10-325MG [[place] 10-325] 1 tab PO Q8H PRN #9 tab PRN Reason: Pain Acetaminophen Tab [Tylenol] 650 mg PO Q4H PRN PRN Reason: Fever And/ Or Pain Metoprolol Tartrate [Lopressor] 25 mg PO BID@0800,1700 predniSONE 7 mg PO DAILY@0800 Discharge Medication List Ferrous Sulfate [Feosol] 325 mg PO BID@0800,1700 09/03/19 [History] Leflunomide [Arava] 20 mg PO DAILY@0800 10/10/19 [History] Ascorbic Acid [Vitamin C] 500 mg PO DAILY@0800 01/15/21 [History] Lactobacillus Acidophilus [Acidophilus Probiotic] 1 cap PO DAILY@0800 01/15/21 [History] Loratadine [Claritin] 10 mg PO DAILY@0800 01/15/21 [History] Ondansetron [Zofran] 4 mg PO Q6H PRN 01/15/21 [History] Potassium Chloride [Klor-Con 20] 20 meq PO BID@0800,1700 01/15/21 [History] bisacodyL [Dulcolax] 10 mg RECTAL DAILY PRN 01/15/21 [History] Magnesium Hydroxide [Milk of Magnesia Concentrate] 7,200 mg PO DAILY PRN 01/28/21 [History] Sucralfate [Carafate] 1 gm PO TID@0600,1100,1630 01/28/21 [History] Furosemide [Lasix] 40 mg PO DAILY@0800 02/26/21 [History] HYDROcodone/APAP 10-325MG [[place] 10-325] 1 tab PO DAILY@0800 #3 tab 03/03/21 [Rx] HYDROcodone/APAP 10-325MG [[place] 10-325] 1 tab PO Q8H PRN #9 tab 03/03/21 [Rx] Pregabalin [Lyrica] 100 mg PO BID@0800,1700 #6 cap 03/03/21 [Rx] Acetaminophen Tab [Tylenol] 650 mg PO Q4H PRN 09/29/21 [History] Albuterol Nebulized [Ventolin Nebulized] 2.5 mg INHALATION RT-TID PRN 09/29/21 [History] Levothyroxine Sodium [Synthroid] 75 mcg PO DAILY@0600 09/29/21 [History] Lidocaine [Lidocaine 5% Rectal Cream] 1 applic TOPICAL DIRECTED PRN 09/29/21 [History] Metoprolol Tartrate [Lopressor] 25 mg PO BID@0800,1700 09/29/21 [History] Na Phos,M-B/Na Phos,Di-Ba [Fleet Adult] 133 ml RECTAL DAILY PRN 09/29/21 [History] predniSONE 7 mg PO DAILY@0800 09/29/21 [History] Follow up Appointment(s)/Referral(s): Cierra Moyer MD [Primary Care Provider] - 1-2 days Discharge Disposition: - Preliminary Cause of Preliminary Cause of : Acute E. coli urinary tract infection and sepsis
== END 2021-10-01 03:06 | disposition expired | DRG 871 ==
LOC: EC 06:40 → 4SSUR 09:24 → 2SICU 09-30 00:01 → 4SSUR 09-30 17:36
PROVIDERS: ADMIT Internal Medicine; ATTEND Internal Medicine
DX: A41.02 Sepsis due to Methicillin resistant Staphylococcus aureus (principal); L89.154 Pressure ulcer of sacral region, stage 4; J96.01 Acute respiratory failure with hypoxia; I13.0 Hypertensive heart and chronic kidney disease with heart failure and stage 1 through stage 4 chronic kidney disease, or unspecified chronic kidney disease; I50.32 Chronic diastolic (congestive) heart failure; N39.0 Urinary tract infection, site not specified; K92.2 Gastrointestinal hemorrhage, unspecified; Z66 Do not resuscitate; Z51.5 Encounter for palliative care; M06.9 Rheumatoid arthritis, unspecified; R53.81 Other malaise; G89.29 Other chronic pain; M79.7 Fibromyalgia; Z96.0 Presence of urogenital implants; G62.9 Polyneuropathy, unspecified; N18.2 Chronic kidney disease, stage 2 (mild); D63.1 Anemia in chronic kidney disease; L89.899 Pressure ulcer of other site, unspecified stage; E03.9 Hypothyroidism, unspecified; Z74.01 Bed confinement status; Z95.828 Presence of other vascular implants and grafts; Z87.11 Personal history of peptic ulcer disease; Z87.440 Personal history of urinary (tract) infections; Z90.49 Acquired absence of other specified parts of digestive tract; Z79.890 Hormone replacement therapy; Z79.899 Other long term (current) drug therapy; Z99.3 Dependence on wheelchair; Z88.1 Allergy status to other antibiotic agents; Z80.8 Family history of malignant neoplasm of other organs or systems; Z82.49 Family history of ischemic heart disease and other diseases of the circulatory system; Z80.6 Family history of leukemia
CPT/HCPCS: 36415; 36600; 71045; 80053; 81001; 82272; 82805; 83605; 83735; 84484; 85025; 85610; 85730; 87040; 87077; 87086; 87186; 93005; 94660; 96365; 96368; 99285